=== PATIENT | male | born 1945 | race Caucasian/White ===

== ENCOUNTER 2019-08-31 09:46 | Outpatient (CLI) | payer MEDICARE, SELFPAY ==
[2019-08-31 14:05] LABS: Blood Urea Nitrogen 17 mg/dL (9-20); Calcium 9.8 mg/dL (8.4-10.2); Carbon Dioxide 25 mmol/L (22-30); Chloride 102 mmol/L (98-107); Estimated Glomerular Filt Rate > 60; Glucose 197 mg/dL (75-110); Potassium 4.3 mmol/L (3.4-5.0); Sodium 137 mmol/L (137-145)
[2019-08-31 14:19] LABS: Creatinine Urine 77.9 mg/dL
[2019-08-31 14:28] LABS: Microalbumin Urine Random 266.4 mg/L (0-16.7)
== END 2019-08-31 09:47 | disposition home or self-care (01) ==
PROVIDERS: Internal Medicine Endocrinology, Diabetes & Metabolism; PCP Family Medicine; Visit Provider Internal Medicine Cardiovascular Disease
DX: E11.59 Type 2 diabetes mellitus with other circulatory complications (principal); I10 Essential (primary) hypertension
CPT/HCPCS: 36415; 80048; 82043

== ENCOUNTER 2020-09-04 10:33 | Outpatient (CLI) | payer MEDICARE, SELFPAY ==
[2020-09-04 12:28] LABS: Anion Gap 8 mmol/L (8-16); Blood Urea Nitrogen 33 mg/dL (9-20); Calcium 9.7 mg/dL (8.4-10.2); Carbon Dioxide 24 mmol/L (22-30); Chloride 106 mmol/L (98-107); Estimated Glomerular Filt Rate 54; Glucose 107 mg/dL (75-110); HDL Direct 23 mg/dL; Potassium 4.4 mmol/L (3.4-5.0); Sodium 138 mmol/L (137-145)
[2020-09-04 12:39] LABS: LDL Cholesterol Direct 78 mg/dL
[2020-09-04 12:54] LABS: Creatinine Urine 106.5 mg/dL
[2020-09-04 12:58] LABS: MALB Creatinine Ratio 21.9 mg/g (0-30); Microalbumin Urine Random 23.3 mg/L (0-16.7)
== END 2020-09-04 10:34 | disposition home or self-care (01) ==
LOC: ANHWCLAB 10:36
PROVIDERS: PCP Family Medicine; Referring Provider Internal Medicine Endocrinology, Diabetes & Metabolism; Visit Provider Internal Medicine Endocrinology, Diabetes & Metabolism
DX: E11.29 Type 2 diabetes mellitus with other diabetic kidney complication (principal); R80.9 Proteinuria, unspecified
CPT/HCPCS: 36415; 80048; 82043; 83718; 83721

== ENCOUNTER 2021-11-21 11:42 | Outpatient (CLI) | payer MEDICARE, SELFPAY ==
[2021-11-21 14:48] LABS: Anion Gap 9 mmol/L (8-16); Blood Urea Nitrogen 27 mg/dL (9-20); Calcium 8.5 mg/dL (8.4-10.2); Carbon Dioxide 24 mmol/L (22-30); Chloride 104 mmol/L (98-107); Estimated Glomerular Filt Rate 54; Glucose 182 mg/dL (65-110); Potassium 4.2 mmol/L (3.4-5.0); Sodium 137 mmol/L (137-145)
== END 2021-11-21 11:43 | disposition home or self-care (01) ==
LOC: ANHWCLAB 11:43
PROVIDERS: PCP Family Medicine; Visit Provider Internal Medicine Endocrinology, Diabetes & Metabolism
DX: E11.65 Type 2 diabetes mellitus with hyperglycemia (principal)
CPT/HCPCS: 36415; 80048

== ENCOUNTER 2022-12-11 15:31 | Outpatient (CLI) | payer MEDICARE, SELFPAY ==
[2022-12-11 18:09] LABS: Creatinine Urine 96.9 mg/dL
[2022-12-11 18:15] LABS: MALB Creatinine Ratio 16.1 mg/g (0-30); Microalbumin Urine Random 15.6 mg/L (0-16.7)
== END 2022-12-11 15:32 | disposition home or self-care (01) ==
LOC: ANHWCLAB 15:32
PROVIDERS: PCP Family Medicine; Visit Provider Internal Medicine Endocrinology, Diabetes & Metabolism
DX: R80.9 Proteinuria, unspecified (principal); E11.29 Type 2 diabetes mellitus with other diabetic kidney complication
CPT/HCPCS: 82043

== ENCOUNTER 2023-10-08 12:24 | Outpatient (CLI) | payer MEDICARE, SELFPAY ==
--- NOTE | ~2023-10-08 | XR_ITS ---
XR chest 2V DATE: 10/08/2023 12:58 INDICATION: Upper respiratory tract disease TECHNIQUE: PA and lateral views COMPARISON: August 23, 2013 2 view chest FINDINGS: Heart size is normal. No hilar or mediastinal enlargement. No pulmonary infiltrate or conso lidation, pleural effusion or pulmonary vascular congestion or pneumothorax. Degenerative spurring of the thoracic spine. IMPRESSION: No active cardiopulmonary disease Reviewed, dictated and finalized at location B.
== END 2023-10-08 12:25 ==
PROVIDERS: PCP Family Medicine; Visit Provider Family Medicine
DX: J39.8 Other specified diseases of upper respiratory tract (principal)
CPT/HCPCS: 71046

== ENCOUNTER 2024-10-18 11:06 | Outpatient (CLI) | payer MEDICARE, SELFPAY ==
--- OUTSIDE RECORDS SUMMARY | 2024-10-18 11:10 | XMS_ITS | Clinical Summary ---
Author Organization [facility] [place] [address] Address [address] [place] [address] Care Team Providers Care Tool Chaser Name Role Phone Anthony Hogan DO Primary Care Provider [phone] Allergies No known active allergies Medications diclofenac DR (VOLTAREN) 75 mg EC tablet 0 Active Basaglar KwikPen U-100 Insulin 100 unit/mL (3 mL) insulin pen Inject 70 Units under the skin nightly 0 Active hydroCHLOROthia zide (HYDRODIURIL) 25 mg tablet Take 1 tablet (25 mg total) by mouth daily Active metFORMIN (GLUCOPHAGE) 1,000 mg tablet Take 1 tablet (1,000 mg total) by mouth 2 (two) times a day with meals Active lisinopril (PRINIVIL,ZESTR IL) 40 mg tablet Take 1 tablet (40 mg total) by mouth daily Active amLODIPine (NORVASC) 10 mg tablet Take 1 tablet (10 mg total) by mouth daily Active cyanocobalamin (Vitamin B-12) 1,000 mcg tabletIndicatio ns:Prevention of Vitamin B12 Deficiency Take 1 tablet (1,000 mcg total) by mouth daily Active aspirin 81 mg enteric coated tablet Take 1 tablet (81 mg total) by mouth daily Active glucosamine-cho ndroitin 500-400 mg tablet Take 1 tablet by mouth 3 (three) times a day Active multivitamin capsule Take 1 capsule by mouth daily Active empagliflozin (JARDIANCE) 25 mg tabletIndicatio ns:type 2 diabetes mellitus 1 tablet (25 mg total) Active omega-3 fatty acids 1,000 mg capsule Take by mouth Active melatonin 10 mg tablet Take 1 tablet (10 mg total) by mouth daily Active tamsulosin (FLOMAX) 0.4 mg extended release capsule Take 1 capsule (0.4 mg total) by mouth as needed 4 Active insulin lispro (HumaLOG, ADMELOG) 100 unit/mL vial for injection Inject 40 Units under the skin 2 (two) times a day after breakfast and dinner Active spironolactone (ALDACTONE) 25 mg tabletIndicatio ns:Hypertension associated with diabetes (HCC) TAKE 1 TABLET (25 MG TOTAL) BY MOUTH DAILY. 90 tablet 1 4 Active Trijardy XR 12.5-2.5-1,000 mg tablet, IR & ER, biphasic 24hr Take 2 tablets by mouth daily 5 Active rosuvastatin (CRESTOR) 40 mg tabletIndicatio ns:Hyperlipidem ia associated with type 2 diabetes mellitus (HCC),History of TIA (transient ischemic attack) Take 1 tablet (40 mg total) by mouth daily 90 tablet 3 5 08/26/19 26 Active carvediloL (COREG) 25 mg tabletIndicatio ns:Hypertension associated with diabetes (HCC) TAKE 1 TABLET BY MOUTH TWICE A DAY WITH FOOD 180 tablet 3 5 Active Active Problems Problem Noted Date Diagnosed Date Chest pain 10/04/2024 Severe obesity 08/25/2024 Morbid (severe) obesity due to excess calories 1 06/16/2021 Hypertriglyceridemia 10/04/2019 KIMBALL (dyspnea on exertion) 07/13/2019 Nonrheumatic aortic valve stenosis 07/13/2019 History of TIA (transient ischemic attack) 07/13 Body mass index (BMI) 45.0-49.9, adult 0 Obstructive sleep apnea 07/13/2019 Hyperlipidemia associated with type 2 diabetes m ellitus 07/13/2019 Hypertension associated with diabetes 07/13/2019 Bilateral lower extremity edema 07/13/2019 Encounters Date Type Department Care Team Description 10/04/2024 Telephone [facility] Cardiology [address] [facility] 8th [place] [address] [place] [address] Reji Benjamin RMA 10/04/2024 Telephone [facility] Cardiology [address] [facility] Medicine 8th [place] [address] [place] [address] Maxx Connor MD PhD Schedule procedure; R/LHC 09/27/2024 Telephone [facility] Cardiology [address] [facility] 8th [place] [address] [place] [address] Maxx Connor MD PhD cath inquiry 09/23/2024 Telephone [facility] Cardiology [address] [place] [address] [address] [place] [phone] Liam Norris MD 09/23/2024 Results Follow-Up [facility] Cardiology at [address] [place] [address] Liam Norris MD CTA Heart and Coronary Arteries W Morphology when Performed 09/22/2024 1:03 PM CDT - 09/22/2024 11:59 PM CDT Hospital Encounter [facility] Imaging [address] [place] [address] Hypertension associated with diabetes (HCC); Nonrheumatic aortic valve stenosis; KIMBALL (dyspnea on exertion) Discharge Disposition: Discharge to home or self care 09/20/2024 Telephone [facility] [address] [place] [address] Luzmaria Conrad RN 09/20/2024 Telephone [facility] [address] [place] [address] Luzmaria Conrad, RN 08/25/2024 10:30 AM CDT Office Visit [facility] Cardiology [address] [facility] [address] [place] [address] Liam Norris MD Hyperlipidemia associated with type 2 diabetes mellitus (HCC) (Primary Dx); Hypertension associated with diabetes (HCC); Nonrheumatic aortic valve stenosis; History of TIA (transient ischemic attack); Obstructive sleep apnea; KIMBALL (dyspnea on exertion); Severe obesity (HCC); Body mass index (BMI) 45.0-49.9, adult (HCC) 08/08/2024 Results Follow-Up [facility] Medical [facility] Cardiology [address] [place] [phone] Gita Cohn NP Transthoracic Echo (TTE) Complete W Doppler/CF 08/04/2024 10:15 AM CDT Ancillary Procedure [facility] Medical [facility] Cardiology [address] [place] [address] Nonrheumatic aortic valve stenosis from Last 3 Months Medical History Medical History Date Comments Hyperlipidemia Diabetes mellitus (HCC) Hypertension Sleep apnea Arthritis Family History Medical History Relation Name Comments Diabetes Brother 3 Kidney disease Brother 3 Heart disease Father Diabetes Mother Heart disease Mother Kidney disease Mother Appendicitis Sister Relation Name Status Comments Brother 1 Alive Brother 2 Alive Brother 3 Alive Father (Age 86) Mother (Age 84) Sister (Age 6) Ruptured ap pendix Social History Tobacco Use Types Packs/Day Years Used Date Smoking Tobacco: Some Days Cigars Smokeless Tobacco: Never Tobacco Cessation:Ready to Q uit: Not Asked; Counseling Given: Not Answered Alcohol Use Standard Drinks/Week Comments Not Currently 0 (1 standard drink = 0.6 oz pur e alcohol) former alcoholic Sex and Gender Information Value Date Recorded Sex Assigned at Not on file Legal Sex Male 4:39 PM [employer] Gender Identity Not on file Sexual Orientation Not on file Obstetrics History Last Filed Vital Signs Vital Sign Reading Time Taken Comments Blood Pressure 132/50 08/25/2024 10:14 AM CDT Pulse 69 08/25/2024 10:14 AM CDT Temperature - - Respiratory Rate - - Oxygen Saturation 97% 08/25/2024 10: 14 AM CDT Inhaled Oxygen Concentration - - Weight 136.5 kg (300 lb 14.4 oz) 2024 10:14 AM CDT Height 170.2 cm (5' 7) 08/25/2024 10:1 4 AM CDT Body Mass Index 47.13 08/25/2024 10:14 AM CDT Plan of Treatment Upcoming Encounters Date Type Department Care Team (Latest Contact Info) Description 10/24/2024 8:00 AM CDT Hospital Encounter [facility] [address] [place] [address] Maxx Connor MD PhD [address] [place] [address] Chest pain, unspecified type 10/24/2024 8:00 AM CDT - 10/24/2024 9:45 AM CDT Surgery [facility] [address] [place] [address] Maxx Connor MD PhD [address] [place] [address] Right Left Heart Catheterization with Coronary Angiography with or without Left Ventriculography [id number] Health Maintenance Due Date Last Done Comments Albumin Creatinine Ratio, Urine 1945 Depression Screening 1945 Fall Risk Assessment 1945 Hemoglobin A1C 1945 Hepatitis C Screening 1945 eGFR 1945 Dilated Eye Exam 1945 Foot Exam 1945 DTaP/Tdap/Td Vaccine (1 - Tdap) 07/26/1958 Hepatitis B Screening 07/26/1965 Zoster Vaccine (1 of 2) 07/26/1997 Abdominal Aortic Aneurysm (A AA) Screen 07/26/2012 Well Visit 65+ 07/26/2012 Influenza Vaccine (Season Ended) 2025 03/11/2019, 03/10/2018, 02/20/2017, Additional history exists Lipid Panel 08/25/2025 08/25/2024, 10/23, 10/21/2022, Additional history exists Pneumococcal vaccine 65+ Completed 02/20/2017, 02/22 Procedures Procedure Name Priority Date/Time Associated Diagnosis Comments CT HEART MORPHOLOGY AND CORONARY ARTERIES W CONTRAST Schedule Routine, Read Routine (OP Routine) 09/22/2024 1:53 PM CDT Hypertension associated with diabetes (HCC) Nonrheumatic aortic valve stenosis KIMBALL (dyspnea on exertion) POC ISTAT Routine 09/22/2024 1:25 PM CDT POCT LIPID PANEL Routine 08/25/2024 10:2 2 AM CDT Hyperlipidemia associated with type 2 diabetes mellitus (HCC) TRANSTHORACIC ECHO (TTE) COMPLETE W DOPPLER/CF WO CONTRAST Routine 08/04/2024 11:19 AM CDT Nonrheumatic aortic valve stenosis from Last 3 Months Results * CTA Heart and Coronary Arteries W Morphology when Performed (09/22/2024 1:53 PM CDT) Anatomical Region Laterality Modality Chest N/A Computed Tomogra phy 09/22/2024 3:17 PM CDT Impressions 09/22/2024 4:55 PM CDT 1. There is severe calcified and noncalcified atherosclerotic vessel coronary disease with areas of moderate (50-60%) stenosis in the left anterior descending artery and right coronary artery as described above. Due to the extreme amount of calcification, it is difficult to ascertain the degree of stenosis of multiple lesions. Further characterization with functional flow reserve imaging is recommended. 2. Calcium score is 1302. Dictated by: Tina Dallas MD The radiology attending physician has personally reviewed this study, and had reviewed and/or edited this written report and agrees with it. Electronically signed by: David Aguilar M.D. Narrative 09/22/2024 4:55 PM CDT EXAMINATION: CORONARY CT ANGIOGRAM HISTORY: 79-year-old male with progressive shortness of breath. Able to walk 15 steps.. TECHNIQUE: CT angiography of the coronary arteries was performed after the administration of 100 mL of Optiray 350. Images were also obtained precontrast for the purposes of calcium scoring. Prior to the examination, 0 mg of metoprolol was administered intravenously and 0 mg nitroglycerin was administered sublingually. The patient's heart rate at the time of the examination was 52 beats per minute. Images were transferred to a 3D workstation for additional post-processing. FINDINGS: The coronary arteries are left system dominant. There is no anomalous coronary origin or course. No focal caliber change or irregularity to suggest coronary artery dissection. Right coronary system: There is mixed calcified and noncalcified atherosclerotic disease of the proximal and mid right coronary artery with moderate (50-60%) stenosis. Left coronary system: There are mixed calcified and noncalcified atherosclerotic plaques of the proximal, mid and distal LAD with multiple areas of up to moderate (50-60%) stenosis. There are calcified plaques in the proximal and mid left circumflex artery with mild (25-40%) stenosis. The calculated calcium score is 1302. Other findings: There are calcifications of the aortic and mitral valves. Heart size is normal. No pericardial effusion. There is atherosclerosis of the thoracic aorta. Multilevel degenerative disease of the spine. No suspicious osseous lesions. Procedure Note David Aguilar MD - 09/22/2024 EXAMINATION: CORONARY CT ANGIOGRAM HISTORY: 79-year-old male with progressive shortness of breath. Able to walk 15 steps.. TECHNIQUE: CT angiography of the coronary arteries was performed after the administration of 100 mL of Optiray 350. Images were also obtained precontrast for the purposes of calcium scoring. Prior to the examination, 0 mg of metoprolol was administered intravenously and 0 mg nitroglycerin was administered sublingually. The patient's heart rate at the time of the examination was 52 beats per minute. Images were transferred to a 3D workstation for additional post-processing. FINDINGS: The coronary arteries are left system dominant. There is no anomalous coronary origin or course. No focal caliber change or irregularity to suggest coronary artery dissection. Right coronary system: There is mixed calcified and noncalcified atherosclerotic disease of the proximal and mid right coronary artery with moderate (50-60%) stenosis. Left coronary system: There are mixed calcified and noncalcified atherosclerotic plaques of the proximal, mid and distal LAD with multiple areas of up to moderate (50-60%) stenosis. There are calcified plaques in the proximal and mid left circumflex artery with mild (25-40%) stenosis. The calculated calcium score is 1302. Other findings: There are calcifications of the aortic and mitral valves. Heart size is normal. No pericardial effusion. There is atherosclerosis of the thoracic aorta. Multilevel degenerative disease of the spine. No suspicious osseous lesions. IMPRESSION: 1. There is severe calcified and noncalcified atherosclerotic vessel coronary disease with areas of moderate (50-60%) stenosis in the left anterior descending artery and right coronary artery as described above. Due to the extreme amount of calcification, it is difficult to ascertain the degree of stenosis of multiple lesions. Further characterization with functional flow reserve imaging is recommended. 2. Calcium score is 1302. Dictated by: Tina Dallas MD The radiology attending physician has personally reviewed this study, and had reviewed and/or edited this written report and agrees with it. Electronically signed by: David Aguilar M.D. Liam Norris MD IMG CT PROCEDURES Final R esult * (ABNORMAL) POC ISTAT (09/22/2024 1:25 PM CDT) [facility] Creatinine, POC, bld 1.5(H) 0.6 - 1.3 mg/dL POC Device Number [id number] SHUNDIVYA [facility] POC Performer [id number] WANDA BJW Blood 09/22/2024 1:25 PM CDT 09/22/2024 1:25 PM CDT Anthony Hogan DO LAB BLOOD ORDERABLES Final Result [facility] [address] [facility] [address] * POCT lipid panel (08/25/2024 10:22 AM CDT) [facility] Cholesterol, POC 189 mg/dL Comment:GLU = 151 HDL, POC 19 mg/dL Triglycerides, POC 195 mg/dL LDL Cholesterol POC 131 mg/dL Chol/HDL Ratio, POC 7.1 Non-HDL Cholesterol, POC 170 mg/dL Cholesterol Total, POC 189 mg/dL Capillary blood 08/25/2024 1 0:22 AM CDT Liam Norris MD POINT OF CARE TEST ORDERA BLES Final Result * TRANSTHORACIC ECHO (TTE) COMPLETE W DOPPLER/CF WO CONTRAST (08/04/2024 11:19 AM CDT) [facility] LV EF 75 % CONS SCIMAGE Anatomical Region Laterality Modality Ultrasound 08/04/2024 10:0 9 AM CDT Narrative 08/04/2024 4:58 PM CDT [facility] Cardiology [address], [place] [address] [address] [facility] [address], [place] [address] P:[phone] P:[phone] Echocardiographic Report Patient Name: JAI TO : 1945 Study Date: 08/04/2024 10:09:55 AM Gender: M Tech: [facility] Location: [place] Ref Provider: GITA COHN Height(Cm): 170 BSA: 2.55 Weight(Kg): 137.9 Heart Rate: 56 BP: 150 / 52 Quality: Good Order Provider: GITA COHN PROCEDURES: Echocardiographic Report: Transthoracic echocardiogram with complete 2D, M-Mode, and color Doppler examination. INDICATIONS: Aortic Stenosis. MEASUREMENTS: 2D/MM Value Range Doppler Value Range EF Mod BP 80 % [ 52 - 72 ] SUNDEEP Vmax 1.14 cm2 [ 2.00 - 4.00 ] Estimated EF 75 % AV Mean PG 27 mmHg LVIDd 2D 4.96 cm [ 4.20 - 5.80 ] AV Peak Gregor 3.39 m/s [ 1.00 - 1.70 ] LVIDs 2D 3.00 cm [ 2.50 - 4.00 ] AV Peak PG 46 mmHg LVPWd 2D 1.38 cm [ 0.60 - 1.00 ] AV VTI 84.40 cm IVSd 2D 1.32 cm [ 0.60 - 1.00 ] LVOT Diam 2.04 cm [ 1.70 - 2.10 ] LA Dimension 2D 4.12 cm [ 3.00 - 4.00 ] LVOT Peak Gregor 1.19 m/s [ 0.70 - 1.10 ] LA Dimension MM 3.34 cm [ 3.00 - 4.00 ] LVOT VTI 29.95 cm AoR Diam 2D 3.00 cm [ 3.10 - 3.70 ] MV E Peak Gregor 1.37 m/s [ 0.60 - 1.30 ] AoR Diam MM 3.19 cm [ 3.10 - 3.70 ] MV A Peak Gregor 1.30 m/s [ 1.00 - 1.20 ] LA Volume Index 30 cc/m2 [ 16 - 34 ] MV Mean PG 2 mmHg [ 0 - 5 ] MV PHT 99 msec [ 20 - 100 ] MVA PHT 2.22 cm2 [ 2.00 - 4.00 ] MV Decel Time 279 msec [ 104 - 258 ] PV Peak Gregor 0.89 m/s [ 0.40 - 0.80 ] Lateral E` 0.07 m/s [ 0.10 - 0.15 ] E` 0.06 m/s E/E` 19 2D/MM Value Range Doppler Value Range - FINDINGS: Interpretation Site: Exam was interpreted at [facility]. Left Ventricle: Normal left ventricular systolic function. No focal wall motion abnormalities. Normal left ventricular size. Moderate concentric left ventricular hypertrophy. Impaired diastolic relaxation Grade I. Ejection fraction is measured at 80 %. Ejection Fraction is visually estimated to be 75 %. Right Ventricle: Normal right ventricular size. Normal right ventricular systolic function. Left Atrium: There is mild enlargement of left atrium. Right Atrium: The right atrium is normal in size. Atrial Septum: Normal atrial septum. Mitral Valve: Mitral valve leaflets appear mildly thickened. Mild mitral annular calcification. Mild mitral valve regurgitation. There is no hemodynamically significant mitral stenosis by Doppler. Aortic Valve: Moderate aortic stenosis. Peak Velocity of 3.40 m/s. Mean gradient of 27.0 mmHg. Valve area of 1.1 cm2. Aortic cusps appear severely calcified. Probable trileaflet aortic valve, although not all leaflets are visualized. Trace aortic valve regurgitation. Tricuspid Valve: Normal appearance of the tricuspid valve. Right ventricular systolic pressure could not be estimated due to inadequate visualization of the tricuspid regurgitation jet. Trivial regurgitation in the tricuspid valve. Pulmonic Valve: Normal appearance of the pulmonic valve. No pulmonic stenosis. Trivial regurgitation in the pulmonic valve. Pericardium: Normal pericardium with no significant pericardial effusion. Aorta: No aortic root dilation. IVC: Normal size and normal respiratory collapse consistent with normal right atrial pressure (<5 mmHg). CONCLUSIONS: Normal left ventricular systolic function. No focal wall motion abnormalities. Normal left ventricular size. Moderate concentric left ventricular hypertrophy. Impaired diastolic relaxation Grade I. Ejection fraction is measured at 80 %. Ejection Fraction is visually estimated to be 75 %. There is mild enlargement of left atrium. Mitral valve leaflets appear mildly thickened. Mild mitral annular calcification. Mild mitral valve regurgitation. Moderate aortic stenosis. Peak Velocity of 3.40 m/s. Mean gradient of 27.0 mmHg. Valve area of 1.1 cm2. Aortic cusps appear severely calcified. Normal sinus rhythm. Electronically Signed By: Liam Norris MD 08/04/2024 4:58:22 PM CDT Procedure Note Liam Norris MD - 08/04/2024 [facility] Cardiology [address] [facility] [address], [place] [address] [address] [facility] [address], [place] [address] P:[phone] P:[phone] Echocardiographic Report Patient Name: JAI TO : 1945 Study Date: 08/04/2024 10:09:55 AM Gender: M Tech: [facility] Location: [facility] Provider: GITA COHN Height(Cm): 170 BSA: 2.55 Weight(Kg): 137.9 Heart Rate: 56 BP: 150 / 52 Quality: Good Order Provider: GITA COHN PROCEDURES: Echocardiographic Report: Transthoracic echocardiogram with complete 2D, M-Mode, and color Dopplerexamination. INDICATIONS: Aortic Stenosis. MEASUREMENTS: 2D/MM Value Range Doppler ValueRange EF Mod BP 80 % [ 52 - 72 ] SUNDEEP Vmax 1.14cm2 [ 2.00 - 4.00 ] Estimated EF 75 % AV Mean PG 27mmHg LVIDd 2D 4.96 cm [ 4.20 - 5.80 ] AV Peak Gregor 3.39m/s [ 1.00 - 1.70 ] LVIDs 2D 3.00 cm [ 2.50 - 4.00 ] AV Peak PG 46mmHg LVPWd 2D 1.38 cm [ 0.60 - 1.00 ] AV VTI 84.40cm IVSd 2D 1.32 cm [ 0.60 - 1.00 ] LVOT Diam 2.04 cm[ 1.70 - 2.10 ] LA Dimension 2D 4.12 cm [ 3.00 - 4.00 ] LVOT Peak Gregor 1.19m/s [ 0.70 - 1.10 ] LA Dimension MM 3.34 cm [ 3.00 - 4.00 ] LVOT VTI 29.95cm AoR Diam 2D 3.00 cm [ 3.10 - 3.70 ] MV E Peak Gregor 1.37m/s [ 0.60 - 1.30 ] AoR Diam MM 3.19 cm [ 3.10 - 3.70 ] MV A Peak Gregor 1.30m/s [ 1.00 - 1.20 ] LA Volume Index 30 cc/m2 [ 16 - 34 ] MV Mean PG 2 mmHg[ 0 - 5 ] MV PHT 99 msec [ 20 - 100 ] MVA PHT 2.22 cm2 [ 2.00 - 4.00 ] MV Decel Time 279 msec [ 104 - 258 ] PV Peak Gregor 0.89 m/s [ 0.40 - 0.80 ] Lateral E` 0.07 m/s [ 0.10 - 0.15 ] E` 0.06 m/s E/E` 19 2D/MM Value Range Doppler ValueRange - FINDINGS: Interpretation Site: Exam was interpreted at [facility]. Left Ventricle: Normal left ventricular systolic function. No focal wall motionabnormalities. Normal left ventricular size. Moderate concentric left ventricular hypertrophy.Impaired diastolic relaxation Grade I. Ejection fraction is measured at 80 %.Ejection Fraction is visually estimated to be 75 %. Right Ventricle: Normal right ventricular size. Normal right ventricular systolicfunction. Left Atrium: There is mild enlargement of left atrium. Right Atrium: The right atrium is normal in size. Atrial Septum: Normal atrial septum. Mitral Valve: Mitral valve leaflets appear mildly thickened. Mild mitral annularcalcification. Mild mitral valve regurgitation. There is no hemodynamically significant mitralstenosis by Doppler. Aortic Valve: Moderate aortic stenosis. Peak Velocity of 3.40 m/s. Mean gradient of 27.0mmHg. Valve area of 1.1 cm2. Aortic cusps appear severely calcified. Probabletrileaflet aortic valve, although not all leaflets are visualized. Trace aortic valveregurgitation. Tricuspid Valve: Normal appearance of the tricuspid valve. Right ventricular systolicpressure could not be estimated due to inadequate visualization of the tricuspidregurgitation jet. Trivial regurgitation in the tricuspid valve. Pulmonic Valve: Normal appearance of the pulmonic valve. No pulmonic stenosis. Trivialregurgitation in the pulmonic valve. Pericardium: Normal pericardium with no significant pericardial effusion. Aorta: No aortic root dilation. IVC: Normal size and normal respiratory collapse consistent with normal rightatrial pressure (<5 mmHg). CONCLUSIONS: Normal left ventricular systolic function. No focal wall motionabnormalities. Normal left ventricular size. Moderate concentric left ventricular hypertrophy.Impaired diastolic relaxation Grade I. Ejection fraction is measured at 80 %.Ejection Fraction is visually estimated to be 75 %. There is mild enlargement of left atrium. Mitral valve leaflets appear mildly thickened. Mild mitral annularcalcification. Mild mitral valve regurgitation. Moderate aortic stenosis. Peak Velocity of 3.40 m/s. Mean gradient of 27.0mmHg. Valve area of 1.1 cm2. Aortic cusps appear severely calcified. Normal sinus rhythm. Electronically Signed By: Liam Norris MD 08/04/2024 4:58:22 PM CDT Gita Cohn NP CV ECHO PROCEDURES Final Result from Last 3 Months Insurance [employer] MEDICARE GOLD AETNA MEDICARE GOLD A[employer] MEDICARE GOLD Care Teams Tool Chaser Relationship Specialty Start Date End Date Anthony Hogan DO [address] [place] [address] [place] [address] PCP - General Internal Medicine 08/25/24
--- OUTSIDE RECORDS SUMMARY | 2024-10-18 11:10 | XMS_ITS | Encounter Summary ---
Author Organization [facility] Healthcare Address [address] [place] [address] Care Team Providers Care Shake Feeder Name Role Phone Anthony Hogan DO Primary Care Provider +1- [phone] Encounter Details Date Type Department Care Team (Late st Contact Info) Description 09/20/2024 Telephone [facility] Imaging [address] [address] Luzmaria Conrad RN Social History Tobacco Use Types Packs/Day Years Used Date Smoking Tobacco: Some Days Cigars Smokeless Tobacco: Never Alcohol Use Standard Drinks/Week Comments Not Currently 0 (1 standard drink = 0.6 oz pur e alcohol) former alcoholic Sex and Gender Information Value Date Recorded Sex Assigned at Not on file 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 Gender Identity Not on file Sexual Orientation Not on file documented as of this encounter Plan of Treatment Upcoming Encounters Date Type Department Care Team (Latest Contact Info) Description 10/24/2024 8:00 AM CDT Hospital Encounter [facility] V[facility] [address] [place] [phone] Maxx Connor MD PhD [address] [facility] [address] [place] [address] Chest pain, unspecified type 10/24/2024 8:00 AM CDT - 10/24/2024 9:45 AM CDT Surgery [facility] Vascular Center [address] [place] [address] Maxx Connor MD PhD [address] [place] [address] Right Left Heart Catheterization with Coronary Angiography with or without Left Ventriculography [address] documented as of this encounter Visit Diagnoses Not on filedocumented in this encounter Care Teams Shake Feeder Relationship Specialty Start Date End Date Anthony Hogan DO [facility] [address] [address] PCP - General Internal Medicine 08/25/24 documented as of this encounter
--- OUTSIDE RECORDS SUMMARY | 2024-10-18 11:10 | XMS_ITS | Encounter Summary ---
Author Organization [facility] Healthcare Address [address] [place] [address] Care Team Providers Care Licensed Certified Orthotist Name Role Phone Anthony Hogan DO Primary Care Provider [phone]- [phone] Encounter Details Date Type Department Care Team (Late st Contact Info) Description 09/23/2024 Results Follow-Up [facility] Medical Group Cardiology at [address] [place] [address] Liam Norris MD [address] [address] CTA Heart and Coronary Arteries W Morphology when Performed Social History Tobacco Use Types Packs/Day Years Used Date Smoking Tobacco: Some Days Cigars Smokeless Tobacco: Never Alcohol Use Standard Drinks/Week Comments Not Currently 0 (1 standard drink = 0.6 oz pur e alcohol) former alcoholic Sex and Gender Information Value Date Recorded Sex Assigned at Not on file 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 Gender Identity Not on file Sexual Orientation Not on file documented as of this encounter Plan of Treatment Upcoming Encounters Date Type Department Care Team (Latest Contact Info) Description 10/24/2024 8:00 AM CDT Hospital Encounter [facility] Heart and Vascular Center [address] [place] [address] Maxx Connor MD PhD [address] [place], [place] [id number] Chest pain, unspecified type 10/24/2024 8:00 AM CDT - 10/24/2024 9:45 AM CDT Surgery [facility] Vascular Center [address] [place] [address] Maxx Connor MD PhD [address] [place] [address] Right Left Heart Catheterization with Coronary Angiography with or without Left Ventriculography [address] documented as of this encounter Visit Diagnoses Not on filedocumented in this encounter Care Teams Licensed Certified Orthotist Relationship Specialty Start Date End Date Anthony Hogan DO [facility] [address] [place] [address] PCP - General Internal Medicine 08/25/24 documented as of this encounter
--- OUTSIDE RECORDS SUMMARY | 2024-10-18 11:10 | XMS_ITS | Referral Summary ---
Author Organization [facility] [address] [facility] 162 Address [address] [place] [address] Care Team Providers Care Lump Receiver Name Role Phone Anthony Hogan DO Primary Care Provider [phone]- [phone] Encounters Date Type Department Care Team Description 10/04/2024 Telephone [facility] Cardiology [facility] Medicine [address]th [place] [address] [place] [address] Reji Benjamin RMA 10/04/2024 Telephone [facility] Cardiology [facility] 8th [place] [address] [place] [address] Maxx Connor MD PhD Schedule procedure; R/LHC 09/27/2024 Telephone [facility] Cardiology [facility] 8th [place] [address] [place] [address] Maxx Connor MD PhD cath inquiry 09/23/2024 Telephone [facility] Cardiology [address] [place] [phone] Liam Norris MD 09/23/2024 Results Follow-Up [facility] Cardiology at [address] [place] [address] Liam Norris MD [facility] Heart and Coronary Arteries W Morphology when Performed 09/22/2024 1:03 PM CDT - 09/22/2024 11:59 PM CDT Hospital Encounter [facility] Imaging [address] [place] [address] Hypertension associated with diabetes (HCC); Nonrheumatic aortic valve stenosis; KIMBALL (dyspnea on exertion) Discharge Disposition: Discharge to home or self care 09/20/2024 Telephone [facility] Imaging [address] [place] [address] Luzmaria Conrad RN 09/20/2024 Telephone [facility] Imaging [address], [place] [address] Luzmaria Conrad RN 08/25/2024 10:30 AM CDT Office Visit [facility] Medical Group Cardiology [address] [place] [address] [place] [phone] Liam Norris MD Hyperlipidemia associated with type 2 diabetes mellitus (HCC) (Primary Dx); Hypertension associated with diabetes (HCC); Nonrheumatic aortic valve stenosis; History of TIA (transient ischemic attack); Obstructive sleep apnea; KIMBALL (dyspnea on exertion); Severe obesity (HCC); Body mass index (BMI) 45.0-49.9, adult (HCC) 08/08/2024 Results Follow-Up [facility] Medical [facility] Cardiology [address] [place] [address] [place] [phone] Gita Cohn NP Transthoracic Echo (TTE) Complete W Doppler/CF 08/04/2024 10:15 AM CDT Ancillary Procedure [facility] Cardiology [address] [place] [phone] Nonrheumatic aortic valve stenosis from Last 3 Months Allergies No known active allergies Medications diclofenac [...] diabetes 07/13/2019 Bilateral lower extremity edema 07/13/2019 Social History Tobacco Use Types Packs/Day Years [...] on file 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 Gender Identity Not on file Sexual Orientation Not on file Last Filed Vital Signs Vital Sign Reading [...] Description 10/24/2024 8:00 AM CDT Hospital Encounter [facility] Heart and Vascular Center [address] [place] [phone] Maxx Connor MD PhD [address] [place] [address] Chest pain, unspecified type 10/24/2024 8:00 AM CDT - 10/24/2024 9:45 AM CDT Surgery [facility] Heart and Vascular Center 1 [facility] [place] [address] Maxx Connor MD PhD [address] [place] [address] Right Left Heart Catheterization with Coronary Angiography with or without Left Ventriculography [address] Procedures Procedure Name Priority Date/Time Associated Diagnosis [...] (ABNORMAL) POC ISTAT (09/22/2024 1:25 PM CDT) Creatinine, POC, bld 1.5(H) 0.6 - 1.3 mg/dL POC Device Number [id number] WANDA RODRIGUESCH POC Performer [id number] [facility] Blood 09/22/2024 1:25 PM CDT 09/22/2024 1:25 PM CDT Anthony Hogan DO LAB BLOOD ORDERABLES Final Result WANDA RODRIGUESCH [address] [facility] [address] * POCT lipid panel (08/25/2024 10:22 AM CDT) Cholesterol, POC 189 mg/dL Comment:GLU = 151 HDL, POC 19 mg/dL Triglycerides, POC 195 mg/dL LDL Cholesterol POC 131 mg/dL Chol/HDL Ratio, POC 7.1 Non-HDL Cholesterol, POC 170 mg/dL Cholesterol Total, POC 189 mg/dL Capillary blood 08/25/2024 1 0:22 AM CDT us Liam Norris MD POINT OF CARE TEST ORDERA BLES Final Result * TRANSTHORACIC ECHO (TTE) COMPLETE W DOPPLER/CF WO CONTRAST (08/04/2024 11:19 AM CDT) LV EF 75 % CONS SCIMAGE Anatomical Region Laterality Modality Ultrasound 08/04/2024 10:0 9 AM CDT Narrative 08/04/2024 4:58 PM CDT [facility] Medical Group Cardiology [address] [facility] [address], [place] [address] [address] [facility] [address], [place] [address] P:[phone] P:[phone] Echocardiographic Report Patient Name: JAI TO : 1945 Study Date: 08/04/2024 10:09:55 AM Gender: M Tech: [facility] Location: [facility] Provider: GITA COHN Height(Cm): 170 BSA: [...] FINDINGS: Interpretation Site: Exam was interpreted at [facility]. Left Ventricle: Normal left ventricular systolic function. [...] Group Cardiology [address], [place] [address] [address] [facility] [address], [place] [address] P:[phone] P:[phone] Echocardiographic Report Patient Name: JAI TO : 1945 Study Date: 08/04/2024 10:09:55 AM Gender: M Tech: DONAVON Location: [facility] Provider: GITA COHN Height(Cm): 170 BSA: [...] FINDINGS: Interpretation Site: Exam was interpreted at [facility]. Left Ventricle: Normal left ventricular systolic function. [...] Final Result from Last 3 Months Insurance [id number] [place] [address] [facility] AET[employer] MEDICARE GOLD AENA MEDICARE GOLD Care Teams Lump Receiver Relationship Specialty Start Date End Date Anthony Hogan DO [address] [place] [address] [place] [address] PCP - General Internal Medicine 08/25/24
[2024-10-18 18:58] LABS: Cholesterol 86 mg/dL (0-200); HDL Direct 28 mg/dL; Triglycerides 116 mg/dL (<150)
[2024-10-18 19:03] LABS: Alanine Aminotransferase 35 U/L (6-50); Albumin Level 4.3 g/dL (3.5-5.1); Alkaline Phosphatase 59 U/L (38-126); Anion Gap 10 mmol/L (4-12); Aspartate Amino Transferase 46 U/L (17-59); Bilirubin,Total 0.5 mg/dL (0.2-1.3); Blood Urea Nitrogen 30 mg/dL (9-20); Calcium 8.9 mg/dL (8.4-10.2); Carbon Dioxide 23 mmol/L (22-30); Chloride 106 mmol/L (98-107); Estimated Glomerular Filt Rate > 60; Glucose 165 mg/dL (65-110); Potassium 4.4 mmol/L (3.4-5.0); Sodium 139 mmol/L (137-145)
[2024-10-18 19:09] LABS: LDL Cholesterol Direct 31 mg/dL
[2024-10-18 19:13] LABS: Creatinine Urine 40.9 mg/dL
[2024-10-18 19:20] LABS: MALB Creatinine Ratio 108.1 mg/g (0-30); Microalbumin Urine Random 44.2 mg/L (0-16.7)
[2024-10-18 19:23] LABS: Free T4 Free Thyroxine 0.84 ng/dL (0.78-2.19); Vitamin D 25 Hydroxy 34.8 ng/mL
[2024-10-18 19:31] LABS: Prostate Specific Antigen 2.9 ng/mL (< OR = 4.0)
[2024-10-18 20:26] LABS: Basophils Percent Auto 0.4 % (0.2-1.2); Eosinophils Absolute Auto 0.4 K/mm3 (0-0.3); Eosinophils Percent Auto 4.9 % (0-4.4); Hemoglobin 14.1 g/dL (14.0-18.0); Immature Granulocyte Absolute 0.03 K/mm3 (0.00-0.031); Immature Granulocyte Percent A 0.4 % (0-0.5); Lymphocytes Absolute Auto 2.15 K/mm3 (0.9-3.2); Lymphocytes Percent Auto 28.7 % (18.3-44.2); Mean Corpuscular HGB Conc 33.6 g/dl (32-36); Mean Corpuscular Hemoglobin 31.2 pg (26-34); Mean Corpuscular Volume 92.9 fl (80-100); Mean Platelet Volume 11.4 fl (7.4-10.4); Monocytes Absolute Auto 0.7 K/mm3 (0.1-0.6); Monocytes Percent Auto 9.9 % (2.6-8.5); Neutrophils Absolute Auto 4.2 K/mm3 (1.3-6.7); Neutrophils Percent Auto 55.7 % (45.5-73.1); Platelet Count Result 217 k/mm3 (150-375); Red Blood Count 4.52 M/mm3 (4.6-6.20); Red Cell Distribution Width 13.2 % (11.5-14.5); White Blood Count 7.5 K/mm3 (4.5-10.0)
[2024-10-22 11:58] LABS: Apolipoprotein B 51 mg/dL
[2024-10-22 19:39] LABS: Testosterone Free 49.8 pg/mL (30.0-135.0); Testosterone Total 154 ng/dL (250-1100)
== END 2024-10-18 11:07 | disposition home or self-care (01) ==
LOC: ANHGOSHLAB 11:08
PROVIDERS: PCP Internal Medicine; Visit Provider Nurse Practitioner Family
DX: I35.0 Nonrheumatic aortic (valve) stenosis (principal); I10 Essential (primary) hypertension; E78.2 Mixed hyperlipidemia; E11.42 Type 2 diabetes mellitus with diabetic polyneuropathy; E66.01 Morbid (severe) obesity due to excess calories; R53.83 Other fatigue; R37 Sexual dysfunction, unspecified; E11.29 Type 2 diabetes mellitus with other diabetic kidney complication; R80.9 Proteinuria, unspecified; Z12.5 Encounter for screening for malignant neoplasm of prostate
CPT/HCPCS: 36415; 80053; 80061; 82043; 82172; 82306; 82607; 83036; 84153; 84402; 84403; 84439; 84443; 85025; G0103

== ENCOUNTER 2025-02-02 00:35 | Emergency (ER) | payer MEDICARE, SELFPAY ==
--- OUTSIDE RECORDS SUMMARY | 2025-01-31 09:24 | XMS_ITS | Encounter Summary ---
Author Organization [facility] Healthcare Address [address] [place] [address] Care Team Providers Care Wheat Inspector Name Role Phone Anthony Hogan DO Primary Care Provider [phone] Liam Norris MD Unavailable [phone] Meño Yeager MD Unavailable [phone] Miscellaneous, Not In File Unavailable Unava ilable Reason for Referral * MRI/CAT/PET Scan (Routine) - Closed Specialty Diagnoses / Procedures Referred By Chad rajput Referred To Contact Radiology Diagnoses S/P CABG (coronary artery bypass graft) S/P AVR (aortic valve replacement) Procedures CTA Chest W Contrast Meño Yeager MD [id number] [place] [address] Phone: tel: fax: [address] [address] Referral ID Status Reason Start Date Expiration Date Visits Re quested Visits Authorized [id number] Closed 01/13/2025 07/12/2025 1 1 Reason for Visit * MRI/CAT/PET Scan (Routine) - Closed Specialty Diagnoses / Procedures Referred By Contac t Referred To Contact Radiology Diagnoses S/P CABG (coronary artery bypass graft) S/P AVR (aortic valve replacement) Procedures CTA Chest W Contrast Meño Yeager MD [address] [facility] [id number] [place] [address] Phone: tel: fax: [facility] [address] [facility] [place] [address] Referral ID Status Reason Start Date Expiration Date Visits Re quested Visits Authorized [id number] Closed 01/13/2025 07/12/2025 1 1 Encounter Details Date Type Department Care Team (Late st Contact Info) Description 01/31/2025 9:24 AM CDT - 01/31/2025 11:59 PM CDT Hospital Encounter [facility] [address] [place] [id number] Meño Yeager MD [address] [facility] [id number] [place] [address] S/P CABG (coronary artery bypass graft); S/P AVR (aortic valve replacement) Discharge Disposition: Discharge to home or self care Social History Tobacco Use Types Packs/Day Years Used Date Smoking Tobacco: Some Days Cigars Passive Smoke Exposure: Past Smokeless Tobacco: Never Comments:Cigars- (1) 3 times weekly Alcohol Use Standard Drinks/Week Comments Not Currently 0 (1 standard drink = 0.6 oz pur e alcohol) former alcoholic Social Connection and Isolation Panel Answer Date Recorded In a typical week, how many times do you talk on the phone with family, friends, or neighbors? More than three times a week 12/21/2024 How often do you get togethe r with friends or relatives? More than three times a week 12/21/2024 How often do you attend chur ch or cheondoism services? Never 12/21/2024 Do you belong to any clubs o r organizations such as oriental orthodox groups, unions, fraternal or athletic groups, or school groups? No 12/21/2024 How often do you attend meet ings of the clubs or organizations you belong to? Never 12/21/2024 Are you , , di vorced, , never , or living with a partner? 12/21/2024 AUDIT-C Answer Date Recorded Q1: How often do you have a drink containing alcohol? Never 12/01/2024 Q2: How many drinks containi ng alcohol do you have on a typical day when you are drinking? Patient does not drink Q3: How often do you have si x or more drinks on one occasion? Never 12/01/2024 Overall Financial Resource Strain (CARDIA) Answe r Date Recorded How hard is it for you to pa y for the very basics like food, housing, medical care, and heating? Not hard at all 12/21/2024 PHQ-2 Answer Date Recorded PHQ-2 Total Score 0 01/04/2025 PRAPARE - Transportation Answer Date Re corded In the past 12 months, has l ack of transportation kept you from medical appointments or from getting medications? No 11/24 In the past 12 months, has l ack of transportation kept you from meetings, work, or from getting things needed for daily living? No 12/21/2024 Housing Stability Vital Sign Answer Jossue e Recorded In the last 12 months, was t here a time when you were not able to pay the mortgage or rent on time? No 12/21/2024 In the past 12 months, how m any times have you moved where you were living? 0 12/21/2024 At any time in the past 12 m [facility], were you homeless or living in a assisted (including now)? No 12/21/2024 Social Connection and Isolation Panel Answer Date Recorded In a typical week, how many times do you talk on the phone with family, friends, or neighbors? More than three times a week 01/04/2025 How often do you get togethe r with friends or relatives? More than three times a week 01/04/2025 How often do you attend chur ch or cheondoism services? Never 01/04/2025 Do you belong to any clubs o r organizations such as oriental orthodox groups, unions, fraternal or athletic groups, or school groups? No 01/04/2025 How often do you attend meet ings of the clubs or organizations you belong to? Never 01/04/2025 Are you , , di vorced, , never , or living with a partner? 01/04/2025 Overall Financial Resource Strain (CARDIA) Answe r Date Recorded How hard is it for you to pa y for the very basics like food, housing, medical care, and heating? Not very hard 01/04/2025 Hunger Vital Sign Answer Date Recorded Within the past 12 months, y ou worried that your food would run out before you got the money to buy more. Never true 01/05/20 25 Within the past 12 months, t he food you bought just didn't last and you didn't have money to get more. Never true 01/04/2025 PRAPARE - Transportation Answer Date Re corded In the past 12 months, has l ack of transportation kept you from medical appointments or from getting medications? No 12/23 In the past 12 months, has l ack of transportation kept you from meetings, work, or from getting things needed for daily living? No 01/04/2025 Housing Stability Vital Sign Answer Jossue e Recorded In the last 12 months, was t here a time when you were not able to pay the mortgage or rent on time? No 01/04/2025 In the past 12 months, how m any times have you moved where you were living? 0 01/04/2025 At any time in the past 12 m [facility], were you homeless or living in a assisted (including now)? No 01/04/2025 [facility] Utilities Answer Date Recorded In the past 12 months has th e electric, gas, oil, or water company threatened to shut off services in your home? No 01/04/2025 Personal Safety Answer Date Recorded Have you ever been in or are you currently in a harmful physical or emotional relationship or is someone making you feel afraid or unsafe? 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 Fib Post Cardio-Thoracic Surgery,Prevention of Recurrent Atrial Fibrillation Take 1 tablet (400 mg total) by mouth daily 01/20/2025 amLODIPine (NORVASC) 10 mg tablet Take 1 tablet (10 mg total) by mouth every morning apixaban (ELIQUIS) 5 mg tabletIndications: atrial fibrillation Take 1 tablet (5 mg total) by mouth every 12 (twelve) hours 12/27/2024 aspirin 81 mg enteric coated tablet Take 1 tablet (81 mg total) by mouth nightly benzonatate (TESSALON) 200 mg capsuleIndications :Cough Take 1 capsule (200 mg total) by mouth 3 (three) times a day as needed for cough 12/27/2024 blood-glucose sensor (Dexcom G7 Sensor) device Use as directed. Change sensor every 10 days. 3 each 12/20/2024 blood-glucose sensor (Dexcom G7 Sensor) device Use as directed. 1 each 12/20/2024 blood-glucose,rece iver,cont (Dexcom G7 Recording Clerk) misc Use as directed. 1 each 12/20/2024 cyanocobalamin, vitamin B-12, (VITAMIN B-12 ORAL) Take 1,000 mcg by mouth daily as needed (SUPPLEMENT) dextrose 15 gram/32 mL gel in packetIndications: hypoglycemic disorder Take 32 mL (15 g total) by mouth every 15 (fifteen) minutes as needed (blood glucose less than 70 mg/dL) 01/12/2025 docusate sodium (COLACE) 100 mg capsuleIndications :constipation Take 1 capsule (100 mg total) by mouth 2 (two) times a day 12/27/2024 empagliflozin (Jardiance) 25 mg tabletIndications: type 2 diabetes mellitus Take 0.5 tablets (12.5 mg total) by mouth daily before breakfast 0 01/12/2025 ezetimibe (ZETIA) 10 mg tablet Take 1 tablet (10 mg total) by mouth every morning 01/12/2025 furosemide (LASIX) 80 mg tablet Take 1 tablet (80 mg total) by mouth 2 (two) times a day 12/27/2024 gabapentin (NEURONTIN) 100 mg capsule Take 1 capsule (100 mg total) by mouth 01/20/2025 glucosamine-chondr oitin 500-400 mg tablet Take 1 tablet by mouth 3 (three) times a day as needed (SUPPLEMENT) guaiFENesin (ROBITUSSIN) syrup 100 mg/5 mL Take 20 mL (400 mg total) by mouth 4 (four) times a day as needed for cough 01/12/2025 insulin glargine (LANTUS) 100 unit/mL (3 mL) pen for injection Inject 52 Units under the skin nightly 0 01/12/2025 5 insulin lispro (HumaLOG) 100 unit/mL pen for injectionIndicatio ns:type 2 diabetes mellitus Inject 32 Units under the skin 3 (three) times a day with meals (plus blood glucose mg/dL 150-199: 2 units, 200-249: 4 units, 250-299: 6 units, 300-349: 8 units, 350 or greater: 10 units. Notify provider for blood glucose greater than 299 mg/dL. Max daily dose 140) Refer to After Visit Summary for Sliding Scale Insulin Instructions. 0 01/12/2025 5 lidocaine (LIDODERM) 5 % Place 1 patch on the skin daily for 12 hours Remove & discard patch within 12 hours or as directed by MD. 0 01/12/2025 5 lidocaine (XYLOCAINE) 4 % (40 mg/mL) external solution Apply 1 mL (40 mg total) topically 2 (two) times a day as needed for pain (coccyx pain) 12/27/2024 linaGLIPtin (Tradjenta) 5 mg tabletIndications: type 2 diabetes mellitus Take 0.5 tablets (2.5 mg total) by mouth daily 0 01/12/2025 5 magnesium oxide (MAG-OX) 400 mg (241.3 mg elemental magnesium) tabletIndications: hypomagnesemia Take 1 tablet (400 mg total) by mouth daily 01/13/2025 6 metFORMIN (GLUCOPHAGE) 1,000 mg tablet Take 1 tablet (1,000 mg total) by mouth daily with breakfast 0 01/12/2025 5 metoprolol XL (TOPROL-XL) 100 mg 24 hr tablet Take 1 tablet (100 mg total) by mouth 2 (two) times a day 01/12/2025 miconazole (SECURA THICK) 2 % cream Apply topically 2 (two) times a day 01/12/2025 multivit xrcfghny-bizv-IU-c alcium (THERA-M) 9 mg iron-400 mcg tablet Take 1 tablet by mouth daily 01/13/2025 omega-3 fatty acids 1,000 mg capsule Take 1 tablet by mouth every morning pen needle, diabetic (Pen Needle) 32 gauge x 5/32 needle Use as directed once a day. 01/12/2025 pen needle, diabetic 32 gauge x 5/32 needle Use as directed 3 times a day. 01/12/2025 polyethylene glycol (MIRALAX) 17 gram packetIndications: constipation Take 1 packet (17 g total) by mouth 2 (two) times a day 12/27/2024 potassium chloride ER (KLOR-CON) 20 mEq CR tablet Take 1 tablet (20 mEq total) by mouth 2 (two) times a day 01/12/2025 6 ramelteon (ROZEREM) 8 mg tabletIndications: Sleep-Onset Insomnia Take 1 tablet (8 mg total) by mouth nightly 12/27/2024 6 rosuvastatin (CRESTOR) 40 mg tabletIndications: coronary artery disease,hyperlipid emia Take 1 tablet (40 mg total) by mouth every morning 01/12/2025 6 senna (SENOKOT) 8.6 mg tabletIndications: constipation Take 1 tablet by mouth 2 (two) times a day 12/27/2024 tamsulosin (FLOMAX) 0.4 mg extended release capsule Take 1 capsule (0.4 mg total) by mouth nightly 09/03/2023 documented as of this encounter Discharge Disposition Disposition Code Departure Means Destination Discharge to home or self care documented in this encounter Plan of Treatment Not on file documented as of this encounter Procedures Procedure Name Priority Date/Time Associated Diagnosis Comments CTA CHEST W CONTRAST Schedule Routine, Read Routine (OP Routine) 01/31/2025 10:11 AM CDT S/P CABG (coronary artery bypass graft) S/P AVR (aortic valve replacement) documented in this encounter Results * CTA Chest W Contrast (01/31/2025 10:11 AM CDT) Anatomical Region Laterality Modality Chest N/A Computed Tomogra phy 01/31/2025 11:0 1 AM CDT Impressions 01/31/2025 2:05 PM CDT 1. Expected postoperative changes of bioprosthetic aortic valve replacement and coronary artery bypass with patent grafts. 2. Left thyroid nodule measuring up to 2.9 cm is unchanged from October 2024 and can be characterized further with ultrasound as clinically indicated. Dictated by: Alonzo Magdaleno MD The radiology attending physician has personally reviewed this study, and had reviewed and/or edited this written report and agrees with it. Electronically signed by: Canelo Loza M.D. Narrative 01/31/2025 2:05 PM CDT EXAMINATION: CTA CHEST W CONTRAST. 3-D reconstructions were also obtained. HISTORY: s/p aortic valve replacement+ annular enlargement. TECHNIQUE: CT angiography of the chest was performed with intravenous contrast according to the standard protocol after the uneventful administration of 69 mL Opti-Ray 350 intravenous contrast. . Vascular 3D images were generated on a dedicated workstation and also interpreted. COMPARISON: 09/22/[address] dated 11/08/2024. FINDINGS: VASCULAR: Interval placement of bioprosthetic aortic valve and coronary artery bypass. There is fat stranding and fluid in the mediastinum, likely postoperative. MENCHACA to LAD graft is patent. There is opacification of a diminutive saphenous vein graft to the 1st obtuse marginal artery. Aorta: Four vessel arch with left vertebral artery arising from the aorta. -Sinus of Valsalva: 35 mm x 34 mm x 34 mm -Descending thoracic aorta:25 mm x 22 mm Other findings: Left subclavian approach pacemaker defibrillator with leads in the right atrium and right ventricle. Hypoattenuating left thyroid nodule measuring 2.9 cm. Gynecomastia. No thoracic lymphadenopathy. Heart size is normal. Severe multivessel coronary artery disease. Small bilateral pleural effusions with associated atelectasis. No acute abnormality in the imaged upper abdomen. Procedure Note Canelo Loza MD - 01/31/2025 EXAMINATION: CTA CHEST W CONTRAST. 3-D reconstructions were also obtained. HISTORY: s/p aortic valve replacement+ annular enlargement. TECHNIQUE: CT angiography of the chest was performed with intravenous contrast according to the standard protocol after the uneventful administration of 69 mL Opti-Ray 350 intravenous contrast. . Vascular 3D images were generated on a dedicated workstation and also interpreted. COMPARISON: 09/22/[address] dated 11/08/2024. FINDINGS: VASCULAR: Interval placement of bioprosthetic aortic valve and coronary artery bypass. There is fat stranding and fluid in the mediastinum, likely postoperative. MENCHACA to LAD graft is patent. There is opacification of a diminutive saphenous vein graft to the 1st obtuse marginal artery. Aorta: Four vessel arch with left vertebral artery arising from the aorta. -Sinus of Valsalva: 35 mm x 34 mm x 34 mm -Descending thoracic aorta:25 mm x 22 mm Other findings: Left subclavian approach pacemaker defibrillator with leads in the right atrium and right ventricle. Hypoattenuating left thyroid nodule measuring 2.9 cm. Gynecomastia. No thoracic lymphadenopathy. Heart size is normal. Severe multivessel coronary artery disease. Small bilateral pleural effusions with associated atelectasis. No acute abnormality in the imaged upper abdomen. IMPRESSION: 1. Expected postoperative changes of bioprosthetic aortic valve replacement and coronary artery bypass with patent grafts. 2. Left thyroid nodule measuring up to 2.9 cm is unchanged from October 2024 and can be characterized further with ultrasound as clinically indicated. Dictated by: Alonzo Magdaleno MD The radiology attending physician has personally reviewed this study, and had reviewed and/or edited this written report and agrees with it. Electronically signed by: Canelo Loza M.D. Meño Yeager MD IMG CT PROCEDURES Fi nal Result documented in this encounter Visit Diagnoses Diagnosis S/P CABG (coronary artery bypass graft) Postsurgical aortocoronary bypass status S/P AVR (aortic valve replacement) Heart valve replaced by other means documented in this encounter Administered Medications Inactive Administered Medications - up to 3 most recent administrations Medication Order MAR Action Action Date Dose Rate Site ioversoL (OPTIRAY 350) syringe 75 mL 75 mL, intravenous, Once in imaging, contrast, Starting on Thu01/31/25 at 0956, For 1 dose Contrast Given 01/31/2025 9:58 AM CDT 69 mL documented in this encounter Orders Medications Ordered That Elver ht Not Have Been Administered Count Last Ordered Date First Ordered Date ioversoL (OPTIRAY 350) syringe 75 mL 1 01/2025 documented in this encounter Care Teams Wheat Inspector Relationship Specialty Start Date End Date Anthony Hogan DO [facility] [place] [address] PCP - General Internal Medicine 08/25/24 Liam Norris MD [address] [facility] [address] [place] [address] Referring Physician Cardiology 10/19/24 Meño Yeager MD [id number] [place] [address] Consulting Physician Cardiothoracic Surgery 12/27/24 Miscellaneous, Not In File 12/27/24 documented as of this encounter
--- OUTSIDE RECORDS SUMMARY | 2025-01-31 13:48 | XMS_ITS | Encounter Summary ---
Author Organization [facility] Healthcare Address [address] [place] [address] Care Team Providers Care Marble Supervisor Name Role Phone Anthony Hogan DO Primary Care Provider [phone] Liam Norris MD Unavailable [phone] Meño Chandra MD Unavailable [phone] Miscellaneous, Not In File Unavailable Unava ilable Reason for Referral * Cardiology (Routine) - Closed Specialty Diagnoses / Procedures Referred By Chad rajput Referred To Contact Diagnoses S/P CABG (coronary artery bypass graft) S/P AVR (aortic valve replacement) Procedures Transthoracic Echo (TTE) Complete W Doppler/CF Meño Chandra MD [address] [facility] [id number] [place] [address] Phone: tel: fax: [facility] [address] [place] [address] Referral ID Status Reason Start Date Expiration Date Visits Re quested Visits Authorized [id number] Closed 12/27/2024 01/26/2026 1 1 Reason for Visit * Cardiology (Routine) - Closed Specialty Diagnoses / Procedures Referred By Contac t Referred To Contact Diagnoses S/P CABG (coronary artery bypass graft) S/P AVR (aortic valve replacement) Procedures Transthoracic Echo (TTE) Complete W Doppler/CF Meño Chandra MD [id number] [place] [address] Phone: tel: fax: [address] [address] Referral ID Status Reason Start Date Expiration Date Visits Re quested Visits Authorized [id number] Closed 12/27/2024 01/26/2026 1 1 Encounter Details Date Type Department Care Team (Latest Contact Info) Description 01/31/2025 1:48 PM CDT - 01/31/2025 11:59 PM CDT Hospital Encounter [facility] [address] [place] [address] 8[address] [place] [address] S/P CABG (coronary artery bypass graft); S/P [...] 12/21/2024 How often do you attend [employer] or pentecostal services? Never 12/21/2024 Do you belong to any clubs o r organizations such as buddhism groups, unions, fraternal or athletic groups, or [...] any time in the past 12 m [facility], were you homeless or living in a mcc (including now)? No 12/21/2024 Social Connection and Isolation Panel Answer Date Recorded In a typical week, how many times do you talk on the phone with family, friends, or neighbors? More than three times a week 01/04/2025 How often do you get togethe r with friends or relatives? More than three times a week 01/04/2025 How often do you attend chur ch or pentecostal services? Never 01/04/2025 Do you belong to any clubs o r organizations such as buddhism groups, unions, fraternal or athletic groups, or [...] any time in the past 12 m [facility], were you homeless or living in a mcc (including now)? 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 1 each 12/20/2024 [...] by mouth daily before breakfast 0 01/12/2025 5 ezetimibe (ZETIA) 10 mg tablet Take 1 tablet (10 mg total) by mouth every morning 01/12/2025 6 furosemide (LASIX) 80 mg tablet Take 1 tablet (80 mg total) by mouth 2 (two) times a day 12/27/2024 6 gabapentin (NEURONTIN) 100 mg capsule Take 1 [...] 2 (two) times a day 01/12/2025 6 miconazole (SECURA THICK) 2 % cream Apply topically 2 (two) times a day 01/12/2025 multivit lvlssegj-tyts-PL-c alcium (THERA-M) 9 mg iron-400 mcg tablet [...] Procedure Name Priority Date/Time Associated Diagnosis Comments TRANSTHORACIC ECHO (TTE) COMPLETE W DOPPLER/CF W CONTRAST Routine 01/31/2025 3:30 PM CDT S/P CABG (coronary artery bypass graft) S/P AVR (aortic valve replacement) documented in this encounter Results * TRANSTHORACIC ECHO (TTE) COMPLETE W DOPPLER/CF W CONTRAST (01/31/2025 3:30 PM CDT) EF Mod BP 56 % CONS SCIMAGE Anatomical Region Laterality Modality Ultrasound 01/31/2025 2:24 PM CDT Narrative 02/01/2025 9:[address] [facility] Cardiac [facility] [place] [address] [place] [address] Transthoracic Echocardiographic Report Patient Name: JAI TO W : 1945 (79y 6m) Sex: M Study Date: 01/31/2025 02:24:56 PM Ht(Inch): 70 Wt(Lb): 283.07 BSA: 2.52 Customer Operations Manager: Maris Baltazar RDCS Location: [facility] Order Provider: MEÑO CHANDRA Heart Rate: 60 BMI: 40.61 BP: 89 / 45 Ref Provider: MEÑO CHANDRA PROCEDURES: Echocardiographic Report: Transthoracic complete echo with strain imaging and contrast, 2D, spectral and tissue Doppler, color flow Doppler, M-mode. Contrast: Contrast Enhancement was Employed: Due to suboptimal image quality with inadequate visualization of at least 2 of 16 LV wall segments in any view after initial imaging. Perflutren contrast was administered using the volume necessary to obtain adequate images. 0.8 ml Optison Administered, (2.2 ml wasted). INDICATIONS: Z95.1 Presence of aortocoronary bypass graft and Z95.2 Presence of prosthetic heart valve. CONCLUSIONS: 1. Normal left ventricular size based on volume index. Concentric LV remodeling. Normal left ventricular systolic function. The Ejection Fraction (Lemus's) is measured at 56 %. Grade II diastolic dysfunction (elevated mean LA pressure). The average global longitudinal strain is borderline. 2. Normal right ventricular size. Wire noted in the right heart. TV S'= 0.08 m/s (Mildly decreased function). 3. 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 Mild paravalvular aortic regurgitation. BioAVR Gradients Mean 17 mmHg, Peak 31mmHg. DI=0.48. 4. The estimated pulmonary artery systolic pressure is 36.0 mmHg. Mild pulm HTN. ATTESTATION: I have personally reviewed and interpreted this study without fellow or resident. DISCLAIMER: The study images and the final report will be retained in the patient chart by the Echo Laboratory for the legally required time period. This chart constitutes the legal record of any testing performed. FINDINGS: Left Ventricle: Normal left ventricular size based on volume index. Concentric LV remodeling. Normal left ventricular systolic function. The Ejection Fraction (Lemus's) is measured at 56 %. Grade II diastolic dysfunction (elevated mean LA pressure). The average global longitudinal strain is borderline. The LV global strain is: -17.0 %. Right Ventricle: Normal right ventricular size. Wire noted in the right heart. TV S'= 0.08 m/s (Mildly decreased function). Left Atrium: The left atrium is normal in size. Right Atrium: The right atrium is normal in size. Mitral Valve: Normal mitral valve structure. Mild mitral valve regurgitation. Aortic Valve: The mean transaortic gradient is 17 mmHg. Aortic valve dimensionless index is 0.49. 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 The aortic valve prosthesis appears well seated. The aortic prosthesis demonstrates normal leaflet motion. Mild paravalvular aortic regurgitation. BioAVR Gradients Mean 17 mmHg, Peak 31mmHg. DI=0.48. Tricuspid Valve: Normal tricuspid valve structure. Mild tricuspid regurgitation. The estimated pulmonary artery systolic pressure is 36.0 mmHg. Mild pulm HTN. Pulmonic Valve: Normal pulmonic valve structure. No pulmonic regurgitation. Pericardium: Normal pericardium without pericardial effusion. Aorta: Normal aortic root. IVC: IVC is normal in size. The IVC was <2.1 cm and collapsibility <50%. (est. RA pressure 6-10 mmHg). MEASUREMENTS: 2D/MM Value Range Doppler Value Range LVIDd 2D 5.23 cm [ 4.20 - 5.80 ] AV Peak Gregor 2.8 m/s [ 1.0 - 1.7 ] LVIDs 2D 3.41 cm [ 2.50 - 4.00 ] AV Peak PG 31.36 mmHg IVSd 2D 1.22 cm [ 0.60 - 1.00 ] AV Mean PG 17 mmHg LVPWd 2D 1.19 cm [ 0.60 - 1.00 ] AV VTI 64.9 cm LV Thickness Ratio 1.0 LVOT Peak Gregor 1.3 m/s [ 0.7 - 1.1 ] LV FS 2D 34.86 % [ 25.00 - 43.00 ] LVOT Peak PG 6.76 mmHg LV Mass 2D 257.18 g LVOT Mean PG 4 mmHg LV Mass Index 2D 102.13 g/m2 LVOT VTI 31.6 cm RWT 0.46 LVOT/AV VTI 0.49 - Dimensionless index (DVI) EDV Mod BP 105.56 ml [ 62.00 - 150.00 ] MV E Peak Gregor 1.4 m/s [ 0.6 - 1.3 ] LV EDV Index 41.92 ml/m2 MV A Peak Gregor 1.1 m/s [ 1.0 - 1.2 ] ESV Mod BP 46.30 ml [ 21.00 - 61.00 ] MV E/A 1.3 ratio [ 0.8 - 1.5 ] EF Mod BP 56 % [ 52 - 72 ] MV Decel Time 274.51 msec [ 104.00 - 258.00 ] LV GLS -17.0 % [ -25.0 - -18.0 ] Med E` Gregor 5.2 cm/sec [ 8.0 - 25.0 ] LA Length 4C 6.03 cm Lat E` Gregor 10.1 cm/sec [ 10.0 - 25.0 ] LA Length 2C 5.72 cm Average E/E` 18.30 LA Volume BP 70.86 ml RV S` 8.22 cm/sec LA Volume Index 28.14 ml/m2 [ 16.00 - 34.00 ] TR Peak Gregor 2.5 m/s [ 1.0 - 2.8 ] RV Base Dimen 2D 3.4 cm [ 2.5 - 4.2 ] TR Peak PG 25.0 mmHg TAPSE 1.52 cm [ 1.71 - 5.00 ] PV Peak Gregor 0.9 m/s [ 0.4 - 0.8 ] RA Volume 56.26 ml PV Peak PG 3.24 mmHg RA Volume Index 22.34 ml/m2 IVC Diam 1.61 cm IVC Collapse 43 % Electronically Signed By: Ashu Hammond M.D. 02/01/2025 9:10:48 AM CDT Procedure Note Ashu Hammond MD PhD - 02/01/2025 [facility] Card[facility] [place] [address] [place] [address] Transthoracic Echocardiographic Report Patient Name: JAI TO W : 1945 (79y 6m) Sex: M Study Date: 01/31/2025 02:24:56 PM Ht(Inch): 70 Wt(Lb): 283.07 BSA: 2.52 Customer Operations Manager: Maris Baltazar RDCS Location: [facility] Order Provider:MEÑO CHANDRA Heart Rate: 60 BMI: 40.61 BP: 89 / 45 Ref Provider: MEÑO CHANDRA PROCEDURES: Echocardiographic Report: Transthoracic complete echo with strain imagingand contrast, 2D, spectral and tissue Doppler, color flow Doppler, M-mode. Contrast: Contrast Enhancement was Employed: Due to suboptimal imagequality with inadequate visualization of at least 2 of 16 LV wall segments in any viewafter initial imaging. Perflutren contrast was administered using the volume necessaryto obtain adequate images. 0.8 ml Optison Administered, (2.2 ml wasted). INDICATIONS: Z95.1 Presence of aortocoronary bypass graft and Z95.2 Presence ofprosthetic heart valve. CONCLUSIONS: 1. Normal left ventricular size based on volume index. Concentric LVremodeling. Normal left ventricular systolic function. The Ejection Fraction (Lemus's) ismeasured at 56 %. Grade II diastolic dysfunction (elevated mean LA pressure). The averageglobal longitudinal strain is borderline. 2. Normal right ventricular size. Wire noted in the right heart. TV S'=0.08 m/s (Mildly decreased function). 3. 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 Mildparavalvular aortic regurgitation. BioAVR Gradients Mean 17 mmHg, Peak 31mmHg. DI=0.48. 4. The estimated pulmonary artery systolic pressure is 36.0 mmHg. Mildpulm HTN. ATTESTATION: I have personally reviewed and interpreted this study without fellow orresident. DISCLAIMER: The study images and the final report will be retained in the patientchart by the Echo Laboratory for the legally required time period. This chart constitutesthe legal record of any testing performed. FINDINGS: Left Ventricle: Normal left ventricular size based on volume index.Concentric LV remodeling. Normal left ventricular systolic function. The EjectionFraction (Lemus's) is measured at 56 %. Grade II diastolic dysfunction (elevated mean LApressure). The average global longitudinal strain is borderline. The LV global strain is:-17.0 %. Right Ventricle: Normal right ventricular size. Wire noted in the rightheart. TV S'= 0.08 m/s (Mildly decreased function). Left Atrium: The left atrium is normal in size. Right Atrium: The right atrium is normal in size. Mitral Valve: Normal mitral valve structure. Mild mitral valveregurgitation. Aortic Valve: The mean transaortic gradient is 17 mmHg. Aortic valvedimensionless index is 0.49. 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 Theaortic valve prosthesis appears well seated. The aortic prosthesis demonstrates normalleaflet motion. Mild paravalvular aortic regurgitation. BioAVR Gradients Mean 17 mmHg,Peak 31mmHg. DI=0.48. Tricuspid Valve: Normal tricuspid valve structure. Mild tricuspidregurgitation. The estimated pulmonary artery systolic pressure is 36.0 mmHg. Mild pulmHTN. Pulmonic Valve: Normal pulmonic valve structure. No pulmonicregurgitation. Pericardium: Normal pericardium without pericardial effusion. Aorta: Normal aortic root. IVC: IVC is normal in size. The IVC was <2.1 cm and collapsibility <50%.(est. RA pressure 6-10 mmHg). MEASUREMENTS: 2D/MM Value Range DopplerValue Range LVIDd 2D 5.23 cm [ 4.20 - 5.80 ] AV Peak Vel2.8 m/s [ 1.0 - 1.7 ] LVIDs 2D 3.41 cm [ 2.50 - 4.00 ] AV Peak PG31.36 mmHg IVSd 2D 1.22 cm [ 0.60 - 1.00 ] AV Mean PG17 mmHg LVPWd 2D 1.19 cm [ 0.60 - 1.00 ] AV VTI64.9 cm LV Thickness Ratio 1.0 LVOT Peak Vel1.3 m/s [ 0.7 - 1.1 ] LV FS 2D 34.86 % [ 25.00 - 43.00 ] LVOT Peak PG6.76 mmHg LV Mass 2D 257.18 g LVOT Mean PG4 mmHg LV Mass Index 2D 102.13 g/m2 LVOT VTI31.6 cm RWT 0.46 LVOT/AV VTI0.49 - Dimensionless index (DVI) EDV Mod BP 105.56 ml [ 62.00 - 150.00 ] MV E Peak Vel1.4 m/s [ 0.6 - 1.3 ] LV EDV Index 41.92 ml/m2 MV A Peak Vel1.1 m/s [ 1.0 - 1.2 ] ESV Mod BP 46.30 ml [ 21.00 - 61.00 ] MV E/A1.3 ratio [ 0.8 - 1.5 ] EF Mod BP 56 % [ 52 - 72 ] MV Decel Zvoi709.51 msec [ 104.00 - 258.00 ] LV GLS -17.0 % [ -25.0 - -18.0 ] Med E` Vel5.2 cm/sec [ 8.0 - 25.0 ] LA Length 4C 6.03 cm Lat E` Vel10.1 cm/sec [ 10.0 - 25.0 ] LA Length 2C 5.72 cm Average E/E`18.30 LA Volume BP 70.86 ml RV S`8.22 cm/sec LA Volume Index 28.14 ml/m2 [ 16.00 - 34.00 ] TR Peak Vel2.5 m/s [ 1.0 - 2.8 ] RV Base Dimen 2D 3.4 cm [ 2.5 - 4.2 ] TR Peak PG25.0 mmHg TAPSE 1.52 cm [ 1.71 - 5.00 ] PV Peak Vel0.9 m/s [ 0.4 - 0.8 ] RA Volume 56.26 ml PV Peak PG3.24 mmHg RA Volume Index22.34 ml/m2 IVC Diam1.61 cm IVC Collapse 43 % Electronically Signed By: Ashu Hammond M.D. 02/01/2025 9:10:48 AM CDT Meño Chandra MD CV ECHO PROCEDURES F inal Result documented in this encounter Visit Diagnoses Diagnosis S/P CABG (coronary artery bypass graft) Postsurgical aortocoronary bypass status S/P AVR (aortic valve replacement) Heart valve replaced by other means documented in this encounter Administered Medications Inactive Administered Medications - up to 3 most recent administrations Medication Order MAR Action Action Date Dose Rate Site perflutren protein-a (OPTISON) 3 mL in sodium chloride 0.9% 8 mL syringe 1-8 mL, intravenous, Once in imaging, contrast, Starting on Thu01/31/25 at 1409, For 1 dose, Intra-Procedure (CV) Contrast Given 01/31/2025 3:31 PM CDT 2 mL documented in this encounter Orders Medications Ordered That Elver ht Not Have Been Administered Count Last Ordered Date First Ordered Date perflutren protein-a (OPTISO N) 3 mL in sodium chloride 0.9% 8 mL syringe 1 01/31/2025 documented in this encounter Care Teams Marble Supervisor Relationship Specialty Start Date End Date Anthony Hogan DO [facility] [facility] [address] [place] [address] PCP - General Internal Medicine 08/25/24 Liam Norris MD [facility] [address] Referring Physician Cardiology 10/19/24 Meoñ Chandra MD [id number] [place] [address] Consulting Physician Cardiothoracic Surgery 12/27/24 Miscellaneous, Not In File 12/27/24 documented as of this encounter
[2025-02-02] VITALS (50 sets, daily range): BP systolic 77–142; BP diastolic 40–124; PULSE 60–65; RESP 8–30; TEMP 36.5; O2SAT 89–100
--- NOTE | ~2025-02-02 | CT_ITS ---
CT HEAD NON-CONTRAST Clinical History: AMS Comparison: CT brain 06/24/2017 Technique: Unenhanced axial images skull base to vertex Coronal, sagittal reformats CT images acquired with automatic exposure control for dose reduction DLP: 787 mGy-cm Findings: Left basal ganglia lacune. Sulci, ventricles: Unremarkable. No intracerebral hemorrhage. No evidence acute territorial infarct. No mass effect, midline shift. Bony calvarium intact. Visualized paranasal sinuses: Clear. Mastoid air cells: Clear. IMPRESSION: 1. No acute intracranial findings. Reviewed, dictated and finalized at location R.
--- NOTE | ~2025-02-02 | XR_ITS ---
EXAMINATION: XR chest port-a-cath/central, 02/02/2025 4:08 CDT HISTORY: central placement COMPARISON: No comparisons available. Technique: Single view. Findings: Moderate pulmonary venous congestion. No pneumothorax. Moderate cardiomegaly. Mediastinal and hilar contours are within normal limits. Poststernotomy. Left pacemaker. Right central line terminates in the SVC. Impression: Central line placement. CHF. Reviewed, dictated and finalized at location A. Impression: Central line placement. CHF.
--- NOTE | ~2025-02-02 | CT_ITS ---
Exam: CT chest, abdomen and pelvis without contrast Clinical History: [Sepsis. Kidney failure ] Comparison: [ None available] Technique: Multiple axial CT images of the chest, abdomen and pelvis were obtained without IV contrast. Sagittal and coronal reformatted images were obtained. FINDINGS: Lungs and pleura: [ Small to moderate-sized bilateral pleural effusions.] Visualized tracheobronchial tree is patent. Small to moderate-sized bandlike and patchy consolidations in the mid and lower lungs. Mediastinum and pulmonary adolfo: [ No mass or adenopathy.] Axillary/intramammary and supraclavicular: [ No mass or adenopathy.] Heart and great vessels: [ Heart is mildly enlarged..[ [ No pericardial effusion.] [ No aneurysm.] There are coronary artery calcifications. Chest Wall: Left-sided generator in the cutaneous soft tissues anterior to the left pectoralis muscle. Liver: [ No mass.] [ No intrahepatic biliary duct dilatation.] Gallbladder: Mild gallbladder wall thickening. Small amount of pericholecystic fluid. Acute cholecystitis is possible in the appropriate clinical setting. Common bile duct: [ Normal caliber.] [ No stones.] Spleen: [ Within normal limits.] Pancreas: [ No mass. No pancreatic fluid collection.] Adrenals: [ No masses.] Kidneys: [ No masses. No hydronephrosis.][ Contrast is noted in the pelvicalyceal systems, uterus and bladder] Lymph nodes: [ No adenopathy in the abdomen or pelvis.] Stomach, small bowel and colon: [ No bowel wall thickening or obstruction.] Moderate amount of stool. Mild diverticulosis. Peritoneum cavity: [ No mesenteric fat stranding or fluid.] Bladder: Concentric thickening of the santoyo of the mildly distended bladder. Prostate gland is mildly enlarged. Osseous structures: [ No acute fracture or destructive lesion.] [ Multilevel degenerative change in the visualized spine.] Bones appear osteopenic. Abdominal aorta: [ No aneurysm.] Additional findings: There is a 2.9 cm left thyroid nodule. A thyroid ultrasound is recommended. The patient's arms are down which limits evaluation. Mild anasarca. Moderate elevation of the right hemidiaphragm. IMPRESSION: 1. Small to moderate-sized bandlike and patchy consolidations in the mid and lower lungs. Differential includes a combination of atelectasis and/or pneumonia. Recommend follow-up to resolution to exclude an underlying mass.. 2. Small to moderate-sized bilateral pleural effusions. 3. Mild gallbladder wall thickening. Small amount of pericholecystic fluid. Acute cholecystitis is possible in the appropriate clinical setting. Consider a HIDA scan for further assessment. 4. Concentric thickening of the santoyo of the mildly distended bladder. Differential includes incomplete bladder wall distention or cystitis. 5. There is a 2.9 cm left thyroid nodule. A thyroid ultrasound is recommended. Reviewed, dictated and finalized at location Q. IMPRESSION: 1. Small to moderate-sized bandlike and patchy consolidations in the mid and lo wer lungs. Differential includes a combination of atelectasis and/or pneumonia. Recommend follow-up to resolution to exclude an underlying mass.. 2. Small to moderate-sized bilateral pleural effusions. 3. Mild gallbladder wall thickening. Small amount of pericholecystic fluid. Acu te cholecystitis is possible in the appropriate clinical setting. Consider a HI DA scan for further assessment. 4. Concentric thickening of the santoyo of the mildly distended bladder. Differen tial includes incomplete bladder wall distention or cystitis. 5. There is a 2.9 cm left thyroid nodule. A thyroid ultrasound is recommended.
--- NOTE | ~2025-02-02 | XR_ITS ---
Examination: XR chest 1V portable Clinical History: Hypoglycemia Comparison: X-rays 10/08/2023 Technique: Portable AP Findings: Left pacemaker. Cardiomegaly. CP angle blunting, and bibasilar atelectasis. No acute bony abnormality. IMPRESSION: 1. Pleural effusions with bibasilar atelectasis. Reviewed, dictated and finalized at location R.
--- NOTE | 2025-02-02 00:51 | ECG_ITS ---
Test Date: 2025-02-02 00:39:17 Measurements Intervals [place] Rate: 59 P: 240 IN: 356 QRS: -14 QRSD: 110 T: 40 QT: 499 QTc: 498 Interpretive Statements ELECTRONIC ATRIAL PACEMAKER NONSPECIFIC ST & T-WAVE ABNORMALITY PROLONGED QT INTERVAL No previous ECG available for comparison Electronically Signed On 02-02-2025 11:07:12 CDT by Blaine Renee M.D.
--- NOTE | 2025-02-02 00:59 | ED.GENADULT ---
HPI - General Adult General Chief complaint: Unspecified Stated complaint: HYPOGLYCEMIA/AMS Time Seen by Provider: 02/02/25 00:44 History of Present Illness HPI narrative: This is a 79-year-old male presenting for and altered mental status. 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 He felt very dehydrated the last 2 days and has been drinking Pedialyte but not eating very much. Today he took 35 units of insulin but did not end up eating dinner. He then became unconscious. EMS was called and his blood sugar was read as low. He was given IV dextrose with improvement in his blood glucose. However he was still hypotensive. He received 500 cc of normal saline from EMS. Patient says that he is currently having chest pain although he has had that consistently since his surgery. He also has pain over his tailbone where he has a stage 2 decubitus ulcer. He denies fevers chills shortness of breath URI symptoms nausea vomiting or diarrhea. Related Data Home Medications ?Medication ?Instructions ?Recorded ?Confirmed ?Last Taken ?Type aspirin 81 mg tablet,delayed 81 mg PO QPM 05/06/19 01/12/25 Unknown History release (Adult Aspirin Regimen) omega-3 fatty acids 1,000 mg 1,000 mg PO DAILY 05/06/19 01/12/25 Unknown History capsule (Fish Oil Concentrate) benzonatate 200 mg capsule 200 mg PO TID PRN cough 12/27/24 01/12/25 Unknown History cyanocobalamin (vitamin B-12) 1,000 mcg PO DAILY PRN supplement 12/27/24 01/12/25 Unknown History 1,000 mcg capsule docusate sodium 100 mg capsule 100 mg PO BID 12/27/24 01/12/25 Unknown History insulin glargine 100 unit/mL 52 unit subcut QPM 12/27/24 01/12/25 01/11/25 History subcutaneous solution (Lantus U-100 Insulin) multivitamin 1 tablet PO DAILY 12/27/24 01/12/25 Unknown History polyethylene glycol 3350 17 gram 17 g PO BID 12/27/24 01/12/25 01/12/25 History oral powder packet (Miralax) potassium chloride 20 mEq 20 meq PO BID 12/27/24 01/12/25 Unknown History tablet,extended release (K-Tab) sennosides 8.6 mg tablet (Senna 8.6 mg PO BID 12/27/24 01/12/25 01/12/25 History Lax) magnesium oxide 400 mg PO DAILY 01/12/25 01/12/25 Unknown History miconazole nitrate 2 % topical 1 applic topical BID 01/12/25 01/12/25 Unknown History cream (Antifungal (miconazole)) Allergies Allergy/AdvReac Type Severity Reaction Status Date / Time No Known Allergies Allergy Verified 01/12/25 22:12 [facility] Past Medical History Medical History Type 2 diabetes mellitus with chronic kidney disease Type 2 diabetes mellitus Tinea unguium Tinea pedis Lipoprotein deficiency Erectile dysfunction Diverticulitis of colon (without mention of hemorrhage) Transient cerebral ischemia Positive for macroalbuminuria Hypertension Alcoholism Type 2 diabetes mellitus with hyperglycemia Stroke Surgical History Surgical History No pertinent past surgical history Family History Family History Sibling Diabetes mellitus Hypertension Family history of elevated blood lipids Mother Family history of glaucoma Hypertension Family history of elevated blood lipids Diabetes mellitus Acute myocardial infarction Father Diabetes mellitus Family history of elevated blood lipids Family history of cardiovascular disease Cerebrovascular accident Other Family history of blood dyscrasia Family history of congestive heart failure Social History Social History Social History: Caffeine-coffee Smoking packs per day: 0 Smoking cigarettes per day: 0.0 Years smoked: 30 Smoking pack-years: 0.00 Smoking status: Current every day smoker Tobacco type: cigars Second hand tobacco smoke exposure: Yes Smoking end date: 11/23/24 Additional smoking assessment comments: 3 cigars per week Alcohol intake: former Drinks per week: 0 Alcohol use details: quit 1994 Substance use: never Substance use type: does not use Lack of Transportation: No Lack of Food: Never True Current Housing: I Have Housing Concerned About Future Housing: No Difficulty Paying Gas/Electric Bills: No Difficulty Paying for Meds: No Currently Unemployed: No Education: High School Diploma/GED Difficulty w/ Childcare or Family Care: No Gender identity (if verbalized by the patient): Male Sexual Orientation (if Verbalized by the Patient): Straight or Heterosexual Spiritual care concerns: No Agree to blood products: Yes Exam Narrative: APPEARANCE: No apparent distress. Lethargic Head: atraumatic. EYES: EOMI, NOSE: Atraumatic NECK: Trachea midline RESPIRATORY: Slightly tachypneic bibasilar crackles CARDIOVASCULAR: RRR, +1 edema lower extremities, well-healed surgical scar over the sternum ABDOMINAL: Non-distended soft nontender MUSCULOSKELETAl: No obvious deformities NEURO: Alert. Moving 4/4 extremities SKIN:: Small stage II sacral decubitus that signs of an infection PSYCHIATRIC: Normal affect Course Vital Signs Vital signs: Vital Signs Temperature 97.7 F 02/02/25 00:31 Pulse Rate 60 02/02/25 00:31 Respiratory Rate 16 02/02/25 00:31 Blood Pressure 142/124 H 02/02/25 00:31 Pulse Oximetry 92 02/02/25 00:31 Oxygen Delivery Room Air 02/02/25 00:31 Temperature 97.7 F 02/02/25 00:31 Pulse Rate 65 02/02/25 00:49 Respiratory Rate 16 02/02/25 00:31 Blood Pressure 142/124 H 02/02/25 00:31 Pulse Oximetry 92 02/02/25 00:31 Oxygen Delivery Room Air 02/02/25 00:31 Procedures Central Line Placement Right IJ: Central Line Date: 02/02/25 Discussed w/ the patient/family/POA,the placement of a central venous catheter, including its clinical necessity/indication & associated potential risks, benifits and alternatives.: Yes Time Out Performed: Yes Patient Placed on Monitor/Pulse Ox: Yes Max. Sterile Barrier Technique: Caps, large sterile sheet and hand hygiene Central Line Prep: 2% chlorhexidine scrub and sterile drapes applied Emergently Placed, Full Sterile: prep not done Technique: US-Guided Local Anesthetic: lidocaine 1% Amount of anesthesia used (mL): 3 Ultrasound Used for Placement: Yes Central Line Lumen Inserted: triple Post Procedure: sutured in place, good blood return, all ports aspirated, flushed, capped and sterile dressing applied Post Procedure X-Ray: tip of catheter in good position and no pneumothorax seen Patient Tolerated Procedure: well Complications: none Medical Decision Making MDM Narrative Medical decision making narrative: -Course: 79-year-old male presenting for altered mental status. Altered mental status appears to be due to hypoglycemia. Patient was given dextrose and fed carbohydrates, however he continued to be persistently hypoglycemic and eventually required a D10 drip. Patient is also hypotensive. Patient appears dehydrated although he has a history of congestive heart failure. Patient given cautious fluid resuscitation. After 2 L the patient was still persistently hypotensive. Attempted to give another L but at this point he started complaining shortness of breath. Fluids were stopped and a central line was placed and he was started on nor epi. D10 drip was stopped and the patient will be given D50 amps as needed for hypoglycemia. CT of the chest abdomen pelvis was significant for possible right lower lobe pneumonia and bilateral pleural effusions. No findings in the abdomen. Patient started on broad-spectrum antibiotics for pneumonia. Patient also found to be in acute kidney failure with a creatinine of 6.87 from a baseline of 1.2. Lactic was 4.9 -> 5.5. Lactic did not clear as he was persistently hypotensive. This will be repeated after he has obtained an appropriate map. Patient's troponin and BNP are elevated although his ARF limits their clinical utility. will continue to trend trops. He is not any complaints of chest pain outside of the chronic pain he has had since surgery. EKG showed nonspecific ST changes. Patient was accepted at [facility] under Dr. Leyva and Dr. Yeager. Patient will be transferred. -DDX includes but is not limited to: Dehydration, gastroenteritis, sepsis pneumonia UTI medication complication Vital Signs Vital Signs: Vital Signs Temperature 97.7 F 02/02/25 00:31 Pulse Rate 60 02/02/25 00:31 Respiratory Rate 16 02/02/25 00:31 Blood Pressure 142/124 H 02/02/25 00:31 Pulse Oximetry 92 02/02/25 00:31 Oxygen Delivery Room Air 02/02/25 00:31 Temperature 97.7 F 02/02/25 00:31 Pulse Rate 65 02/02/25 00:49 Respiratory Rate 16 02/02/25 00:31 Blood Pressure 142/124 H 02/02/25 00:31 Pulse Oximetry 92 02/02/25 00:31 Oxygen Delivery Room Air 02/02/25 00:31 Lab Data 02/02/25 00:56 02/02/25 00:56 Labs: Lab Results 02/02/25 02/02/25 02/02/25 Range/Units 00:56 01:28 02:27 WBC 8.9 (4.5-10.0) K/mm3 RBC 3.15 L (4.6-6.20) M/mm3 Hgb 9.3 L (14.0-18.0) g/dL Hct 30.7 L (42.0-52.0) % MCV 97.5 (80-100) fl MCH 29.5 (26-34) pg MCHC 30.3 L (32-36) g/dl RDW 15.6 H (11.5-14.5) % Plt Count 283 (150-375) k/mm3 MPV 10.2 (7.4-10.4) fl Immature Gran % (Auto) 1.3 H (0-0.5) % Neut % (Auto) 69.4 (45.5-73.1) % Lymph % (Auto) 15.9 L (18.3-44.2) % [place] % (Auto) 12.0 H (2.6-8.5) % Eos % (Auto) 1.1 (0-4.4) % Baso % (Auto) 0.3 (0.2-1.2) % Lymph # (Auto) 1.42 (0.9-3.2) K/mm3 [place] # (Auto) 1.1 H (0.1-0.6) K/mm3 Eos # (Auto) 0.1 (0-0.3) K/mm3 Baso # (Auto) 0.0 (0.0-0.1) K/mm3 Abs Immat Gran (auto) 0.12 H (0.00-0.031) K/mm3 Absolute Neuts (auto) 6.2 (1.3-6.7) K/mm3 Absolute Nucleated RBC 0.000 (0.0-0.012) K/mm3 Nucleated RBC % 0.0 (0.0-0.2) % PT 26.7 H (11.1-14.7) Seconds INR 2.5 APTT 35.7 (22.3-36.8) Seconds Sodium 135 L (137-145) mmol/L Potassium 5.4 H (3.4-5.0) mmol/L Chloride 102 (98-107) mmol/L Carbon Dioxide 19 L (22-30) mmol/L Anion Gap 14 H (4-12) mmol/L BUN 74 H D (9-20) mg/dL Creatinine 6.87 H (0.7-1.3) mg/dL Estim Creat Clear Calc Not Reportable Estimated GFR 8 L (59 - ) Glucose 94 (65-110) mg/dL POC Capillary Glucose 79 67 (65-105) mg/dl Lactic Acid 4.8 H* (0.7-2.0) mmol/L Calcium 8.2 L (8.4-10.2) mg/dL Phosphorus 5.2 H (2.5-4.5) mg/dL Magnesium 2.7 H (1.6-2.3) mg/dL Total Bilirubin 0.4 (0.2-1.3) mg/dL AST 87 H (17-59) U/L ALT 172 H (6-50) U/L Alkaline Phosphatase 184 H (38-126) U/L Troponin I 0.043 H* (0.000-0.034) ng/mL NT-Pro-B Natriuret Pep 79305 H (19.9-100) pg/mL Total Protein 6.5 (6.3-8.2) g/dL Albumin 3.4 L (3.5-5.1) g/dL Lipase 343 H (23-300) U/L TSH (Reflex) 5.750 H (0.465-4.68) uIU/mL Free T4 Pending Urine Color (Yellow) Urine Appearance (Clear) Urine pH (5.0-9.0) Ur Specific [place] (1.001-1.035) Urine Protein (Negative) mg/dL Urine Glucose (UA) (Negative) mg/dL Urine Ketones (Negative) mg/dL Ur Blood (Man) (Negative) Urine Nitrate (Negative) Urine Bilirubin (Negative) Urine Urobilinogen (<2.0) mg/dL Leukocyte Esterase Rfl (Negative) MADDIE/UL Urine RBC (0-2) /hpf Urine WBC (0-3) /hpf Ur Squamous Epith Cells (Few) /hpf Urine Bacteria /hpf Urine Casts Influenza A (RT-PCR) Negative (Negative) Influenza B (RT-PCR) Negative (Negative) RSV (RT-PCR) Negative (Negative) SARS-CoV-2 RNA (RT-PCR) Negative (Negative) 02/02/25 02/02/25 Range/Units 02:35 02:44 WBC (4.5-10.0) K/mm3 RBC (4.6-6.20) M/mm3 Hgb (14.0-18.0) g/dL Hct (42.0-52.0) % MCV (80-100) fl MCH (26-34) pg MCHC (32-36) g/dl RDW (11.5-14.5) % Plt Count (150-375) k/mm3 MPV (7.4-10.4) fl Immature Gran % (Auto) (0-0.5) % Neut % (Auto) (45.5-73.1) % Lymph % (Auto) (18.3-44.2) % [place] % (Auto) (2.6-8.5) % Eos % (Auto) (0-4.4) % Baso % (Auto) (0.2-1.2) % Lymph # (Auto) (0.9-3.2) K/mm3 [place] # (Auto) (0.1-0.6) K/mm3 Eos # (Auto) (0-0.3) K/mm3 Baso # (Auto) (0.0-0.1) K/mm3 Abs Immat Gran (auto) (0.00-0.031) K/mm3 Absolute Neuts (auto) (1.3-6.7) K/mm3 Absolute Nucleated RBC (0.0-0.012) K/mm3 Nucleated RBC % (0.0-0.2) % PT (11.1-14.7) Seconds INR APTT (22.3-36.8) Seconds Sodium (137-145) mmol/L Potassium (3.4-5.0) mmol/L Chloride (98-107) mmol/L Carbon Dioxide (22-30) mmol/L Anion Gap (4-12) mmol/L BUN (9-20) mg/dL Creatinine (0.7-1.3) mg/dL Estim Creat Clear Calc Estimated GFR (59 - ) Glucose (65-110) mg/dL POC Capillary Glucose 73 (65-105) mg/dl Lactic Acid (0.7-2.0) mmol/L Calcium (8.4-10.2) mg/dL Phosphorus (2.5-4.5) mg/dL Magnesium (1.6-2.3) mg/dL Total Bilirubin (0.2-1.3) mg/dL AST (17-59) U/L ALT (6-50) U/L Alkaline Phosphatase (38-126) U/L Troponin I (0.000-0.034) ng/mL NT-Pro-B Natriuret Pep (19.9-100) pg/mL Total Protein (6.3-8.2) g/dL Albumin (3.5-5.1) g/dL Lipase (23-300) U/L TSH (Reflex) (0.465-4.68) uIU/mL Free T4 Urine Color Yellow (Yellow) Urine Appearance Turbid H (Clear) Urine pH 5.0 (5.0-9.0) Ur Specific [place] 1.025 (1.001-1.035) Urine Protein 3+ H (Negative) mg/dL Urine Glucose (UA) 2+ H (Negative) mg/dL Urine Ketones Trace H (Negative) mg/dL Ur Blood (Man) Trace (Negative) Urine Nitrate Negative (Negative) Urine Bilirubin Negative (Negative) Urine Urobilinogen 0.2 (<2.0) mg/dL Leukocyte Esterase Rfl Negative (Negative) MADDIE/UL Urine RBC 0-2 (0-2) /hpf Urine WBC 0-5 (0-3) /hpf Ur Squamous Epith Cells Many H (Few) /hpf Urine Bacteria None seen /hpf Urine Casts >20 Influenza A (RT-PCR) (Negative) Influenza B (RT-PCR) (Negative) RSV (RT-PCR) (Negative) SARS-CoV-2 RNA (RT-PCR) (Negative) ABG Data ABG results: 02/02/25 01:03 VBG pH 7.306 VBG pCO2 38.0 L VBG pO2 54.1 H VBG HCO3 18.5 L O2 Delivery Device Room air O2 Liters/Min Not Reportable FiO2 21 Critical Care Time Critical Care Time Critical Care Time: Yes Total Critical Care Time: 75 Discharge Plan Discharge Clinical Impression: Hypoglycemia, Cardiogenic shock, PNA (pneumonia), Acute kidney failure Patient Disposition: Acute Care Hospital Condition: Critical Patient Language: Bengali Prescriptions: No Action omega-3 fatty acids [Fish Oil Concentrate] 1,000 mg capsule 1,000 mg PO DAILY aspirin [Adult Aspirin Regimen] 81 mg tablet,delayed release (DR/EC) 81 mg PO QPM (DME) cpap See Rx Instructions .Route .MEDSUPPLY Qty: 1 0RF Rx Instructions: AutoPAP with 5-15cm of water with a heated humidifier for added comfort, tubing, filters and large ResMed Airfit F10 series mask . length of Treatment 99+ months NPI number [id number] tamsulosin 0.4 mg capsule 0.4 mg PO QHS Qty: 90 1RF (DME) pen needle, diabetic 32 gauge x 5/32 needle See Rx Instructions .ROUTE .COMPLEX Qty: 100 1RF Dose Instruction: USE 3 TIMES DAILY WITH INSULIN INJECTIONS Rx Instructions: USE 3 TIMES DAILY WITH INSULIN INJECTIONS (DME) OneTouch Ultra Test Strip See Rx Instructions .ROUTE .COMPLEX Qty: 300 1RF Dose Instruction: USE A NEW STRIP EACH TIME IN METER TO CHECK BLOOD SUGARS 3 TIMES DAILY Rx Instructions: USE A NEW STRIP EACH TIME IN METER TO CHECK BLOOD SUGARS 3 TIMES DAILY benzonatate 200 mg capsule 200 mg PO TID PRN (Reason: cough) cyanocobalamin (vitamin B-12) 1,000 mcg capsule 1,000 mcg PO DAILY PRN (Reason: supplement) docusate sodium 100 mg capsule 100 mg PO BID insulin glargine [Lantus U-100 Insulin] 100 unit/mL solution 52 unit subcut QPM multivitamin Tablet 1 tablet PO DAILY polyethylene glycol 3350 [Miralax] 17 gram powder in packet 17 g PO BID potassium chloride [K-Tab] 20 mEq tablet extended release 20 meq PO BID sennosides [Senna Lax] 8.6 mg tablet 8.6 mg PO BID magnesium oxide 400 mg magnesium capsule 400 mg PO DAILY miconazole nitrate [Antifungal (miconazole)] 2 % cream 1 applic topical BID acetaminophen 500 mg Tablet 1,000 mg PO BID Qty: 0 0RF gabapentin 100 mg Capsule 100 mg PO BID Qty: 60 0RF quetiapine [Seroquel] 25 mg tablet 25 mg PO HS Qty: 30 0RF furosemide [Lasix] 40 mg tablet 80 mg PO BID Qty: 60 0RF amiodarone 200 mg tablet 400 mg PO DAILY Qty: 30 0RF metoprolol succinate [Toprol XL] 100 mg tablet extended release 24 hr 100 mg PO BID Qty: 60 0RF amlodipine 10 mg tablet 10 mg PO DAILY Qty: 30 0RF metformin 1,000 mg tablet 1,000 mg PO DAILY Qty: 30 0RF lidocaine 5 % adhesive patch,medicated 1 patch topical DAILY Qty: 30 0RF Rx Instructions: leave on most painful area for up to 12 hrs ramelteon [Rozerem] 8 mg tablet 8 mg PO HS Qty: 30 0RF linagliptin 5 mg tablet 2.5 mg PO QAM Qty: 30 0RF Eliquis 5 mg tablet 5 mg PO BID Qty: 60 0RF Jardiance 25 mg tablet 12.5 mg PO DAILY Qty: 30 0RF Follow-up/Referrals: Anthony Hogan DO [Primary Care Provider, Internal Medicine]
[2025-02-02] MEDS: SODIUM CHLORIDE 0.9% IV 1,000 ML 999 ML IV CONT (01:06)
--- OUTSIDE RECORDS SUMMARY | 2025-02-02 01:10 | XMS_ITS | Clinical Summary ---
Author Organization [facility] [place] [address] Address [address] [place] [address] Care Team Providers Care Client Customer Manager Name Role Phone Anthony Hogan DO Primary Care Provider [phone] Liam Norris MD Unavailable [phone] Meño Chandra MD Unavailable [phone] Miscellaneous, Not In File Unavailable Unava ilable Allergies No known active allergies Medications aspirin 81 mg enteric coated tablet Take 1 tablet (81 mg total) by mouth nightly Active tamsulosin (FLOMAX) 0.4 mg extended release capsule Take 1 capsule (0.4 mg total) by mouth nightly 09/03/19 24 Active glucosamine-cho ndroitin 500-400 mg tablet Take 1 tablet by mouth 3 (three) times a day as needed (SUPPLEMENT) Active cyanocobalamin, vitamin B-12, (VITAMIN B-12 ORAL) Take 1,000 mcg by mouth daily as needed (SUPPLEMENT) Active amLODIPine (NORVASC) 10 mg tablet Take 1 tablet (10 mg total) by mouth every morning Active omega-3 fatty acids 1,000 mg capsule Take 1 tablet by mouth every morning Active blood-glucose,r eceiver,cont (Dexcom G7 Area Counselor) misc Use as directed. 1 each 12/21/19 25 Active blood-glucose sensor (Dexcom G7 Sensor) device Use as directed. Change sensor every 10 days. 3 each 12/21/19 25 Active blood-glucose sensor (Dexcom G7 Sensor) device Use as directed. 1 each 12/21/19 25 Active benzonatate (TESSALON) 200 mg capsuleIndicati ons:Cough Take 1 capsule (200 mg total) by mouth 3 (three) times a day as needed for cough 12/28/19 25 Active docusate sodium (COLACE) 100 mg capsuleIndicati ons:constipatio n Take 1 capsule (100 mg total) by mouth 2 (two) times a day 12/28/19 25 Active furosemide (LASIX) 80 mg tablet Take 1 tablet (80 mg total) by mouth 2 (two) times a day 12/28/19 25 026 Active lidocaine (XYLOCAINE) 4 % (40 mg/mL) external solution Apply 1 mL (40 mg total) topically 2 (two) times a day as needed for pain (coccyx pain) 12/28/19 25 Active polyethylene glycol (MIRALAX) 17 gram packetIndicatio ns:constipation Take 1 packet (17 g total) by mouth 2 (two) times a day 12/28/19 25 Active QUEtiapine (SEROquel) 25 mg tablet Take 1 tablet (25 mg total) by mouth nightly 12/28/19 25 Active senna (SENOKOT) 8.6 mg tabletIndicatio ns:constipation Take 1 tablet by mouth 2 (two) times a day 12/28/19 25 026 Active ramelteon (ROZEREM) 8 mg tabletIndicatio ns:Sleep-Onset Insomnia Take 1 tablet (8 mg total) by mouth nightly 12/28/19 25 026 Active apixaban (ELIQUIS) 5 mg tabletIndicatio ns:atrial fibrillation Take 1 tablet (5 mg total) by mouth every 12 (twelve) hours 12/28/19 25 Active insulin glargine (LANTUS) 100 unit/mL (3 mL) pen for injection Inject 52 Units under the skin nightly 0 01/13/20 25 025 Active pen needle, diabetic (Pen Needle) 32 gauge x 5/32 needle Use as directed once a day. 01/13/20 25 Active insulin lispro (HumaLOG) 100 unit/mL pen for injectionIndica tions:type 2 diabetes mellitus Inject 32 Units under the skin 3 (three) times a day with meals (plus blood glucose mg/dL 150-199: 2 units, 200-249: 4 units, 250-299: 6 units, 300-349: 8 units, 350 or greater: 10 units. Notify provider for blood glucose greater than 299 mg/dL. Max daily dose 140) Refer to After Visit Summary for Sliding Scale Insulin Instructions . 0 01/13/20 25 025 Active pen needle, diabetic 32 gauge x needle Use as directed 3 times a day. 01/13/20 Active metFORMIN (GLUCOPHAGE) 1,000 mg tablet Take 1 tablet (1,000 mg total) by mouth daily with breakfast 0 01/13/20 25 025 Active empagliflozin (Jardiance) 25 mg tabletIndicatio ns:type 2 diabetes mellitus Take 0.5 tablets (12.5 mg total) by mouth daily before breakfast 0 01/13/20 25 025 Active linaGLIPtin (Tradjenta) 5 mg tabletIndicatio ns:type 2 diabetes mellitus Take 0.5 tablets (2.5 mg total) by mouth daily 0 01/13/20 25 025 Active acetaminophen (TYLENOL) 325 mg tabletIndicatio ns:Pain Take 2 tablets (650 mg total) by mouth every 4 (four) hours as needed for pain 0 01/13/20 25 025 Active magnesium oxide (MAG-OX) 400 mg (241.3 mg elemental magnesium) tabletIndicatio ns:hypomagnesem ia Take 1 tablet (400 mg total) by mouth daily 01/14/20 25 026 Active metoprolol XL (TOPROL-XL) 100 mg 24 hr tablet Take 1 tablet (100 mg total) by mouth 2 (two) times a day 01/13/20 25 026 Active multivit ljkjlbnv-iygl-I A-calcium (THERA-M) 9 mg iron-400 mcg tablet Take 1 tablet by mouth daily 01/14/20 25 Active potassium chloride ER (KLOR-CON) 20 mEq CR tablet Take 1 tablet (20 mEq total) by mouth 2 (two) times a day 01/13/20 026 Active dextrose 15 gram/32 mL gel in packetIndicatio ns:hypoglycemic disorder Take 32 mL (15 g total) by mouth every 15 (fifteen) minutes as needed (blood glucose less than 70 mg/dL) 01/13/20 Active guaiFENesin (ROBITUSSIN) syrup 100 mg/5 mL Take 20 mL (400 mg total) by mouth 4 (four) times a day as needed for cough 01/13/20 Active miconazole (SECURA THICK) 2 % cream Apply topically 2 (two) times a day 01/13/20 Active ezetimibe (ZETIA) 10 mg tablet Take 1 tablet (10 mg total) by mouth every morning 01/13/20 026 Active rosuvastatin (CRESTOR) 40 mg tabletIndicatio ns:coronary artery disease,hyperli pidemia Take 1 tablet (40 mg total) by mouth every morning 01/13/20 25 026 Active amiodarone (PACERONE) 400 mg tabletIndicatio ns:Prevention of A. Fib Post Cardio-Thoracic Surgery,Prevent ion of Recurrent Atrial Fibrillation Take 1 tablet (400 mg total) by mouth daily 01/21/20 25 Active amiodarone (PACERONE) 400 mg tabletIndicatio ns:Prevention of A. Fib Post Cardio-Thoracic Surgery,Prevent ion of Recurrent Atrial Fibrillation Take 1 tablet (400 mg total) by mouth 2 (two) times a day for 7 days 01/13/20 Active lidocaine (LIDODERM) 5 % Place 1 patch on the skin daily for 12 hours Remove & discard patch within 12 hours or as directed by MD. 0 01/13/20 25 025 Active gabapentin (NEURONTIN) 100 mg capsule Take 1 capsule (100 mg total) by mouth 01/21/20 25 Active multivitamin capsule Take 1 capsule by mouth every morning 025 Discontinued(St op Taking at Discharge) rosuvastatin (CRESTOR) 40 mg tabletIndicatio ns:Hyperlipidem ia associated with type 2 diabetes mellitus (HCC),History of TIA (transient ischemic attack) Take 1 tablet (40 mg total) by mouth daily 90 tablet 3 08/26/19 25 025 Discontinued(St op Taking at Discharge) ezetimibe (ZETIA) 10 mg tablet Take 1 tablet (10 mg total) by mouth every morning 09/14/19 025 Discontinued(St op Taking at Discharge) apixaban (ELIQUIS) 5 mg tabletIndicatio ns:atrial fibrillation Take 1 tablet (5 mg total) by mouth 2 (two) times a day 60 tablet 12/23/19 025 Discontinued(St op Taking at Discharge) insulin glargine (LANTUS, SEMGLEE) 100 unit/mL vial for injectionIndica tions:Diabetes Mellitus Inject 38 Units under the skin nightly 10 mL 12/28/19 25 025 Discontinued(St op Taking at Discharge) amiodarone (PACERONE) 400 mg tablet Take 1 tablet (400 mg total) by mouth daily 30 tablet 11 12/29/19 025 Discontinued(St op Taking at Discharge) insulin lispro (HumaLOG, ADMELOG) 100 unit/mL pen for injection Inject 2-10 units under the skin 3 (three) times a day with meals. Blood glucose mg/dL 150-199: 2 units, 200-249: 4 units, 250-299: 6 units, 300-349: 8 units, 350 or greater: 10 units. Notify provider for blood glucose greater than 299 mg/dL. Refer to After Visit Summary for Sliding Scale Insulin Instructions . 12/28/19 025 Discontinued(St op Taking at Discharge) insulin lispro (HumaLOG, ADMELOG) 100 unit/mL pen for injection Inject 15 Units under the skin 3 (three) times a day with meals 12/28/19 25 025 Discontinued(St op Taking at Discharge) acetaminophen 500 mg capsule Take 2 capsules (1,000 mg total) by mouth every 6 (six) hours 12/28/19 25 025 Discontinued(St op Taking at Discharge) methocarbamoL (ROBAXIN) 500 mg tablet Take 1 tablet (500 mg total) by mouth 3 (three) times a day 12/28/19 25 025 Discontinued(St op Taking at Discharge) metoprolol (LOPRESSOR) 100 mg tablet Take 1 tablet (100 mg total) by mouth 2 (two) times a day 12/28/19 25 025 Discontinued(St op Taking at Discharge) potassium chloride ER (KLOR-CON) 20 mEq CR tablet Take 2 tablets (40 mEq total) by mouth 2 (two) times a day 12/29/19 025 Discontinued(St op Taking at Discharge) morphine 0.125% Apply 8 mL (10 mg total) topically 3 (three) times a day as needed (as needed for pain) 12/28/19 25 025 Discontinued(St op Taking at Discharge) oxyCODONE (ROXICODONE) 5 mg immediate release tabletIndicatio ns:Pain Take 1 tablet (5 mg total) by mouth every 8 (eight) hours as needed for pain 12/28/19 025 Discontinued(St op Taking at Discharge) amiodarone (PACERONE) 400 mg tablet Take 1 tablet (400 mg total) by mouth 2 (two) times a day 01/13/20 025 Discontinued morphine 0.125% Apply 8 mL (10 mg total) topically 3 (three) times a day 01/13/20 025 Discontinued(St op Taking at Discharge) Active Problems Problem Noted Date Diagnosed Date Severe malnutrition 01/04/2025 Atrial fibrillation 01/02/2025 Assessment & Plan (01/11/2025 12:10 PM CDT): Pt readmitted with AF on 01/02 via the ED S/P CABG x 2 with AVR (bio) on 12/01/24 Started on amiodarone bolus and gtt, now on amio BID Monitor daily EKG, QTC Monitor on continuous telemetry Continue metoprolol XL 100 BID On Eliquis TTE 01/04: EF 61%, Grade I DD, nml RV, AV with physiologic gradient Amio dosing for discharge: 400 BID x7 days, then [address] 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 Assessment & Plan (12/23/2024 1:59 PM CDT): -Seen by wound/ostomy -Triad to B-sure pad to the area -Local analgesia -Low air loss matress Type 2 diabetes mellitus 12/20/2024 Assessment & Plan (01/11/2025 3:50 PM CDT): Was followed by Georg[facility] during his last admission Endocrinology continuing to follow, appreciate recs for discharge: Basal Insulin: - increase degludec from 48 units to 52 units qHS Mealtime/Bolus Insulin: - increase lispro from 28 units to 32 units TID Correctional/Sliding-Scale Insulin: - resistant correctional lispro TID AC, HS - POC glucoses TID AC, HS, 2AM when eating - Consistent carb diet when eating; no juices, no regular soda Carb consistent diet Assessment & Plan (12/21/2024 12:44 PM CDT): A1c 7.4% on admission Endocrinology following, appreciate recs: - glargine 38 units every day - lispro 13 units TID AC - correctional lispro insulin 2:50>150 mg/dl TID - POC glucoses TID AC, HS, 2AM when eating - Consistent carb diet when eating; no juices, no regular soda Diabetes nurse educator to meet with patient before discharge Monk checked CGM's (Dexcom G6/G7 and FreeStyle Simón 2/3) - mobile pharmacy will fill G7 for no charge Acute kidney injury superimposed on chronic kidn ey disease 12/20/2024 Assessment & Plan (01/11/2025 12:09 PM CDT): Creatinine with post CABG/AVR - creat around 1.6 - 2.5 Monitor daily BMP Will continue to monitor closely Continue Lasix 80mg PO BID Monitor daily weights Strict I&O Assessment & Plan (12/26/2024 5:17 PM CDT): Baseline Cr 1.1-1.3. Now up to 2.29 - Avoid nephrotoxins, renally dose meds as appropriate - Avoid hypotension - Initiated diuresis with IV lasix BID>>7/31 Cr increasing, decreased to qday. - spironolactone on hold - Daily weights, I/Os - Monitor daily renal panel Assessment & Plan (12/22/2024 6:41 PM CDT): Baseline Cr 1.1-1.3. Now up to 1.95>>2.54 - Avoid nephrotoxins, renally dose meds as appropriate - Avoid hypotension - Initiating diuresis with IV lasix BID>>12/22 Cr increasing, decreased to qday - spironolactone on hold - Daily weights, I/Os - Monitor daily renal panel S/P CABG (coronary artery bypass graft) 12/02/19 25 Assessment & Plan (01/11/2025 12:08 PM CDT): See Bio AVR problem above Continue ASA and Metoprolol Holding Statin due to elevated LFTs, continue to monitor hepatic function panel daily Assessment & Plan (12/23/2024 1:57 PM CDT): 12/01 CABG x 2 (MENCHACA to LAD, SVG to OM1), AVR (25 mm bioprosthetic) with non- coronary sinus annular enlargement Intra-op CITLALY: Normal biventricular function, severe LVH No CTs EPW removed 12/20 Continue to monitor on telemetry; AV paced 60s Continue ASA, statin Continue metoprolol at 100 mg BID - titrate as needed Started diuresis with 60 IV lasix BID Holding spironolactone in the setting of TANA and hyperkalemia Advanced to consistent carb diet Dvt ppx with subq heparin restarted 48 hrs s/p PPM Encourage pulmonary hygiene, IS (patient currently on room air) Continue current bowel regimen Perioperative abx completed Maintain adequate pain management: tylenol PRN, oxycodone PRN, topical morphine Follow up re: anticoagulation plan for Afib following PPM placement -Eliquis started 12/23 PT/OT treat and eval: recommending inpatient rehab, [facility] following>>CM sent referrals, accepted by facility awaiting authorization Daily weights, I/Os Replete electrolytes to maintain K>4, Mag>2 Daily CBC, BMP Assessment & Plan (12/22/2024 6:43 PM CDT): 12/01 CABG x 2 (MENCHACA to LAD, SVG to OM1), AVR (25 mm bioprosthetic) with non- coronary sinus annular enlargement Intra-op CITLALY: Normal biventricular function, severe LVH No CTs EPW removed 12/20 Continue to monitor on telemetry; AV paced 60s Continue ASA, statin Continue beta frandy at 100 mg BID - titrate as needed Started diuresis with 60 IV lasix BID Holding spironolactone in the setting of TANA and hyperkalemia Advanced to consistent carb diet Dvt ppx with subq heparin restarted 48 hrs s/p PPM Encourage pulmonary hygiene, IS (patient currently on room air) Continue current bowel regimen Perioperative abx completed Maintain adequate pain management: tylenol PRN, oxycodone PRN, topical morphine Follow up re: anticoagulation plan for Afib following PPM placement --Start Eliquis in am PT/OT treat and eval: recommending inpatient rehab, [facility] following>>CM sent referrals Daily weights, I/Os Replete electrolytes to maintain K>4, Mag>2 Daily CBC, BMP Severe aortic stenosis 11/15/2024 Assessment & Plan (01/11/2025 12:08 PM CDT): See AF problem Now post op from Bio AVR on 12/01/24 Continue ASA, Metop XL 100 BID Crestor and zetia on hold for elevated LFTs PT recs rehab OT recs rehab Planned for return to rehab facility, but P2P denied - approved for inpatient SNF, but patient refuses Patient and family appealed rehab, waiting on approval Assessment & Plan (12/20/2024 12:22 PM CDT): See s/p CABG problem Sinus node dysfunction 11/15/2024 Assessment & Plan (12/21/2024 12:42 PM CDT): Per ICU notes, EP was consulted for higher pacing burden, frequent pauses, and bradycardia requiring backup pacer S/p PPM placement 12/19 Settings: DDD 60-130 CXR 12/20: Two-lead pacemaker projects over left hemithorax. Median sternotomy plate and screw constructs project over thoracic midline. Prosthetic aortic valve. Device interrogation and AM EKG done EPW removed 12/20 Continue metoprolol 100 mg BID Monitor on telemetry; currently AV paced 60s Severe obesity 08/25/2024 Assessment & Plan (01/11/2025 12:07 PM CDT): Current BMI 39.20 Bariatric equipment as needed Hypertriglyceridemia 10/04/2019 KIMBALL (dyspnea on exertion) 07/13/2019 History of TIA (transient ischemic attack) 07/13 Body mass index (BMI) 45.0-49.9, adult 0 Obstructive sleep apnea 07/13/2019 Assessment & Plan (01/09/2025 3:53 PM CDT): Pt wearing his home CPAP machine ALEJANDRA precautions Hyperlipidemia associated with type 2 diabetes m ellitus 07/13/2019 Hypertension associated with diabetes 07/13/2019 Bilateral lower extremity edema 07/13/2019 Resolved Problems Problem Noted Date Diagnosed Date Resolved Date Pleural effusion 12/20/2024 01/04/2025 Assessment & Plan (12/26/2024 5:17 PM CDT): 12/20 CXR: Small lung volumes. Redistributed right pleural effusion with posteriorly-layering component, which appears on lateral radiograph to be moderate to large in volume. There is a small left pleural effusion. There is no pneumothorax. Cardiomediastinal silhouette is unchanged from previous examination. Consulted IP: patient had -760 mLs serosanguinous fluid removed via R thoracentesis Will transition to PO lasix in anticipation of discharge to facility. On room air, receiving CPAP at night for obstructive sleep apnea -12/22 noted worsening cough this evening>>ordered CXR in am ; 12/23 states cough resolved Encourage pulmonary hygiene, IS Assessment & Plan (12/22/2024 6:44 PM CDT): 12/20 CXR: Small lung volumes. Redistributed right pleural effusion with posteriorly-layering component, which appears on lateral radiograph to be moderate to large in volume. There is a small left pleural effusion. There is no pneumothorax. Cardiomediastinal silhouette is unchanged from previous examination. Consulted IP: patient had -760 mLs serosanguinous fluid removed via R thoracentesis Initiated diuresis with 60 IV lasix BID today>>cr bumped, will decrease to daily On room air, receiving CPAP at night for obstructive sleep apnea -12/22 noted worsening cough this evening>>ordered CXR in am Encourage pulmonary hygiene, IS Atrial fibrillation with RVR 12/10/2024 01/04/2025 Assessment & Plan (12/22/2024 6:27 PM CDT): ICU course notable for multiple episodes of afib rvr which were treated with amiodarone and beta frandy PPM placed 12/19 (settings DDD 60-130) Monitor on continuous telemetry; AV paced 60s but still with occasional Afib RVR overnight Continue amiodarone 400 mg TID (on day 3 of load) Continue metoprolol dosing to 100 mg BID AC plan to start eliquis at discharge >> cost is $150/mo but pt is willing to pay Paroxysmal atrial fibrillati on with conversion pauses 11/15/2024 01/04/2025 Assessment & Plan (12/23/2024 7:27 AM CDT): See Afib with RVR problem Assessment & Plan (12/20/2024 12:07 PM CDT): See Afib with RVR problem Chest pain 10/04/2024 01/04/2025 Morbid (severe) obesity due to excess calories 04/16/2022 01/04/2025 Nonrheumatic aortic valve stenosis 07/13/2019 01/04/2025 Encounters Date Type Department Care Team Description 01/31/2025 1:48 PM CDT - 01/31/2025 11:59 PM CDT Hospital Encounter [facility] Cardiac Diagnostic Lab [address] [facility] 8th [place] [phone] S/P CABG (coronary artery bypass graft); S/P AVR (aortic valve replacement) Discharge Disposition: Discharge to home or self care 01/31/2025 11:45 AM CDT Office Visit [facility] Medicine Cardiothoracic Surgery [address] [facility] 8th Floor [address] [place] [address] Meño Chandra MD Coronary artery disease involving [place] coronary artery of tu[place]ne heart without angina pectoris (Primary Dx) 01/31/2025 9:24 AM CDT - 01/31/2025 11:59 PM CDT Hospital Encounter [facility] [address] [place] [address] Meño Chandra MD S/P CABG (coronary artery bypass graft); S/P AVR (aortic valve replacement) Discharge Disposition: Discharge to home or self care 01/16/2025 Telephone [facility] Cardiology [address] [place] [phone] Nevaeh Salinas MA 01/13/2025 Telephone [facility] [address] [place] [address] [place] [address] Arthur Mcleod MD 01/02/2025 2:02 PM CDT - 01/12/2025 4:11 PM CDT Hospital Encounter [facility] [address] [facility] [place] [address] Barbra Lopez MD Jotte, Randall Stephen, MD Brescia, Alexander Angelo, MD Atrial fibrillation with rapid ventricular response (HCC) (Primary Dx); Chest pain, unspecified type; Hypotension, unspecified hypotension type; S/P CABG (coronary artery bypass graft) Discharge Disposition: Discharge to an Rehab facility 01/02/2025 [facility]phone [facility] [address] Room [address] [address] Meño Chandra MD 12/30/2024 Telephone [facility] 8th [place] [address] [place] [address] Arthur Mcleod MD 12/27/2024 Orders Only [facility] 8th Floor [address] Room [address] [place] [phone] Meño Chandra MD S/P CABG (coronary artery bypass graft) (Primary Dx); S/P AVR (aortic valve replacement) 12/19/2024 8:30 AM CDT Anesthesia Event [facility] Electrophysiology Lab 1 [place] [address] Meño Porras MD Silver, Kate Elizabeth, CRNA 12/19/2024 8:30 AM CDT - 12/19/2024 11:30 AM CDT Surgery [facility] Electrophysiology Lab 1 [place] [address] Arthur Mcleod MD IMPLANT DUAL CHAMBER PPM SYSTEM W/ DUAL ELECTRODES (GEN AND LEADS, NEW OR REPLACE) [id number] 12/12/2024 Orders Only [facility] 8th [place] [address] [place] [phone] Giovanna Holguin NP Fitting or adjustment of cardiac pacemaker (Primary Dx) 12/01/2024 3:52 PM CDT Anesthesia Event [facility] Operating Room 1 [place] [phone] Ashu Fernandes MD PhD Melissa Funez DO 12/01/2024 3:10 PM CDT Ancillary Procedure [facility] Operating Room 1 [place] [address] 12/01/2024 2:05 PM CDT - 12/01/2024 11:00 PM CDT Surgery [facility] Operating Room 1 [place] [address] Meño Chandra MD CORONARY ARTERY BYPASS GRAFT WITH PUMP X 2 (MENCHACA-LAD AND SVG-OM1) 12/01/2024 11:55 AM CDT - 12/27/2024 2:40 PM CDT Hospital [address] [address] Meño Chandra MD Paroxysmal atrial fibrillation with conversion pauses (HCC) (Primary Dx); Severe aortic stenosis; Atrial fibrillation with RVR (HCC); S/P CABG (coronary artery bypass graft); Sinus node dysfunction (HCC) Discharge Disposition: Discharge to an Rehab facility 11/22/2024 2:00 PM CDT Pre-Admission Testing [facility] for Preoperative Assessment and [facility] [address] [place] [id number] Preoperative testing (Primary Dx) 11/17/2024 Orders Only [facility] Medicine Cardiothoracic Surgery [address] [facility] Medicine 8th Floor [address] [place] [address] Meño Chandra MD 11/15/2024 8:30 AM CDT - 11/15/2024 9:55 AM CDT Surgery [facility] [address] [place] [phone] Rocky Bruno MD LEFT HEART CATHETERIZATION WITH CORONARY ANGIOGRAPHY AND WITH OR WITHOUT LEFT VENTRICULOGRAM [id number] 11/15/2024 7:12 AM CDT - 11/15/2024 1:56 PM CDT Hospital Encounter [facility] [address] [place] [phone] Rocky Bruno MD Nonrheumatic aortic valve stenosis; Chest pain, unspecified type Discharge Disposition: Discharge to home or self care 11/15/2024 Results [place] [address] [place] [address] Medical Office Building [address] [place] [address] Jayesh Freedman MD ECG 12 lead 11/14/2024 Telephone [facility] [address] [place] [address] 8th [place] [address] [place] [address] Rocky Bruno MD 11/08/2024 3:25 PM CDT Lab [facility] [address] [place] [address] Nonrheumatic aortic valve stenosis; History of heart valve abnormality; Abnormal finding of blood chemistry, unspecified 11/08/2024 1:45 PM CDT Office Visit [facility] Medicine Surgery [address] [place] [address] [address] [place] [address] Nonrheumatic aortic valve stenosis (Primary Dx); History of heart valve abnormality; Abnormal finding of blood chemistry, unspecified 11/08/2024 1:45 PM CDT Office Visit [facility] Medicine Cardiology [address] [facility] Medical Office Building [address] [place] [address] Jayesh Freedman MD Hyperlipidemia associated with type 2 diabetes mellitus (HCC) (Primary Dx); KIMBALL (dyspnea on exertion); Nonrheumatic aortic valve stenosis; Chest pain, unspecified type 11/08/2024 10:29 AM CDT - 11/08/2024 11:59 PM CDT Hospital Encounter [facility] [address] [address] [address] Jayesh rFeedman MD Nonrheumatic aortic valve stenosis Discharge Disposition: Discharge to home or self care from Last 3 Months Surgical History Surgery Date Site/Laterality Comments COLONOSCOPY CARDIAC CATHETERIZATION 11/15/2024 N/A Procedure: LEFT HEART CATHETERIZATION WITH CORONARY ANGIOGRAPHY AND WITH OR WITHOUT LEFT VENTRICULOGRAM 37034; Surgeon: Rocky Bruno MD; Location: [facility]; Service: Cardiovascular; Laterality: N/A; CARDIAC CATHETERIZATION 11/15/2024 N/A Procedure: Coronary Flow Velocity (CFR) / Instantaneous Flow Velocity (IFR), 1st Vessel; Surgeon: Rocky Bruno MD; Location: [facility]; Service: Cardiovascular; Laterality: N/A; CARDIAC CATHETERIZATION 11/15/2024 N/A Procedure: Coronary Flow Velocity (CFR) / Instantaneous Flow Velocity (IFR), Ea Addtn'l Vessel; Surgeon: Rocky Bruno MD; Location: [facility]ENT; Service: Cardiovascular; Laterality: N/A; CARDIAC ELECTROPHYSIOLOGY PROCEDURE 12/19/2024 N/A Procedure: IMPLANT DUAL CHAMBER PPM SYSTEM W/ DUAL ELECTRODES (GEN AND LEADS, NEW OR REPLACE) 35540; Surgeon: Arthur Mcleod MD; Location: [facility] EP [facility]; Service: Cardiovascular; Laterality: N/A; Medical devices from this surgery are in the Medical Devices section. Medical History Medical History Date Comments Hyperlipidemia Diabetes mellitus (HCC) Hypertension Sleep apnea Arthritis Pleural effusion 12/20/2024 Paroxysmal atrial fibrillation with conversion p auses (HCC) 11/15/2024 Nonrheumatic aortic valve stenosis 07/13/2019 Morbid (severe) obesity due to excess calories ( [facility]) 04/16/2022 Family History Medical History Relation Name Comments Diabetes Brother 3 Kidney disease Brother 3 Heart disease Father Diabetes Mother Heart disease Mother Kidney disease Mother Appendicitis Sister Anesthesia problems Neg Hx Relation Name Status Comments Brother 1 Alive Brother 2 Alive Brother 3 Alive Father (Age 86) Mother (Age 84) Sister (Age 6) Ruptured ap pendix Social History Tobacco Use Types Packs/Day Years Used Date Smoking Tobacco: Some Days Cigars Passive Smoke Exposure: Past Smokeless Tobacco: Never Tobacco Cessation:Ready to Q uit: Not Asked; Counseling Given: Not Answered Comments:Cigars- (1) 3 times weekly Alcohol Use [...] 12/21/2024 How often do you attend chur or protestant services? Never 12/21/2024 Do you belong to any clubs o r organizations such as christian groups, unions, fraternal or athletic groups, or [...] any time in the past 12 m [facility], were you homeless or living in a chcf (including now)? No 12/21/2024 Social Connection and Isolation Panel Answer Date Recorded In a typical week, how many times do you talk on the phone with family, friends, or neighbors? More than three times a week 01/04/2025 How often do you get togethe r with friends or relatives? More than three times a week 01/04/2025 How often do you attend chur ch or protestant services? Never 01/04/2025 Do you belong to any clubs o r organizations such as christian groups, unions, fraternal or athletic groups, or [...] any time in the past 12 m [facility], were you homeless or living in a chcf (including now)? 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 Gender Identity Not on file Sexual Orientation Not on file Obstetrics History Last Filed Vital Signs Vital Sign Reading Time Taken Comments Blood Pressure 115/59 01/31/2025 10:31 AM CDT Pulse 57 01/31/2025 10:31 AM CDT Temperature 36.7 C (98.1 F) 01/12/2025 11:07 AM CDT Respiratory Rate 18 01/12/2025 11:0 7 AM CDT Oxygen Saturation 95% 01/31/2025 10: 31 AM CDT Inhaled Oxygen Concentration - - Weight 128.7 kg (283 lb 12.8 oz) 2024 10:31 AM CDT Height 177.8 cm (5' 10) 01/31/2025 10: 31 AM CDT Body Mass Index 40.72 01/31/2025 10:31 AM CDT Plan of Treatment Health Maintenance Due Date Last Done Comments Albumin Creatinine Ratio, Urine 1945 Hepatitis C Screening 1945 Dilated Eye Exam 1945 Foot Exam 1945 Hepatitis B Screening 07/26/1965 DTaP/Tdap/Td Vaccine (1 - Tdap) 08/26/2004 5 Abdominal Aortic Aneurysm (A AA) Screen 07/26/2012 Well Visit 65+ 07/26/2012 Influenza Vaccine (#1) 2025 , 02/27/2020, 03/11/2019, Additional history exists Hemoglobin A1C 07/06/2025 01/03/2025, 11/08/2024 Lipid Panel 12/02/2025 12/02/2024, 04/0 07/2024, 11/10/2023, Additional history exists Depression Screening 01/02/2026 01/02/2025, 11/16/19 25 eGFR 01/09/2026 01/09/2025, 12/23, 01/08/2025, Additional history exists Fall Risk Assessment 01/12/2026 01/12/2025 Pneumococcal vaccine 65+ Completed 017, 03/08/2015, 03/07/2015, Additional history exists Zoster Vaccine Completed 06/24/2021, 03/25, 11/08/2013 Medical Devices Implanted Type Area Health Care Technician Device Identifier Shelf Expiration Date Model / Serial / Lot Medtronic Inc Capsurefix Novus 6.2fr 2mm 52cm Bipolar Screw In Implantable Latex Free 5076-52 - [id number] - [id number] Implanted:Qty: 1 on 12/19/2024 by Arthur Mcleod MD at [facility] Lead Right: Atria Medtronic Inc 09/15/2026 5076-52 / [id number] 32V / Medtronic Inc Capsurefix Novus 6.2fr 2mm 58cm Bipolar Screw In Implantable 5076-58 - [id number] - [id number] Implanted:Qty: 1 on 12/19/2024 by Arthur Mcleod MD at [facility] Lead Right: Ventricle Medtronic Inc 08/17/2026 5076-58 / [id number] 82V / Medtronic Inc Tyrx Absorbable Antibacterial Envelope Med 2.7x2.5in [id number] - [id number] - [id number] Implanted:Qty: 1 on 12/19/2024 by Arthur Mcleod MD at [facility] Mesh Right: Ventricle Medtronic Inc 08/14/2025 [id number] / [id number] / [id number] Medtronic Inc Lacey S Mri Surescan 50.8x46.6mm 2 Chamber 7.4mm Pacemaker 22.5gm [id number] - [id number] - [id number] Implanted:Qty: 1 on 12/19/2024 by Arthur Mcleod MD at [facility] Pacemaker Right: Ventricle Medtronic Inc 03/07/2026 [id number] / [id number] / Domit[employer] Plate Bone Low Profile 6 Hole H Shape Sternum Ti 115.102.06 - [id number] Implanted:Qty: 2 on 12/01/2024 by Berry Morrissey MD at [facility] Plate N/A: Sternum [employer] 115.102 .06 / / [employer] Plate Bone Low Profile 6 Hole O Shape Sternum Ti 115.104.06 - [id number] Implanted:Qty: 1 on 12/01/2024 by Meño Chandra MD at [facility] Plate N/A: Sternum [employer] 115.104 .06 / / [employer]it[employer] Screw Bone Slf Drl Full Thread Locking 3.5x18mm Ti 100.035.18 - [id number] Implanted:Qty: 10 on 12/01/2024 by Berry Morrissey MD at [facility] Screw N/A: Sternum [employer] 100.035 .18 / / [employer] Screw Bone Slf Drl Full Thread Locking 3.5x20mm Ti 100.035.20 - [id number] Implanted:Qty: 8 on 12/01/2024 by Berry Morrissey MD at [facility] Screw N/A: Sternum [employer] 100.035 .20 / / Get[employer] [place] Inc Patch Collagen Coated Double Velour Hemashield Gold [id number] Woven Polyester [id number] - [id number] - [id number] Implanted:Qty: 1 on 12/01/2024 by Meño Chandra MD at [facility] Heart [employer] [id number] 03/24/2029 [id number] / [id number] / 24L20 [employer] Magna Ease 25mm [id number] - [id number] - [id number] Implanted:Qty: 1 on 12/01/2024 by Meño Chandra MD at [facility] N/A: Heart [employer] [id number] 12/15/2027 [id number] 25MM / [id number] / Ar[employer] Inc Device Closure Fibertape Sternal Cerclage Blunt Needle Ar-[id number] - [id number] Implanted:Qty: 3 on 12/01/2024 by Meño Chandra MD at [facility] N/A: Heart [employer] Inc [id number] 10/22/2029 AR-7289 / / [id number] Procedures Procedure Name Priority Date/Time Associated Diagnosis Comments TRANSTHORACIC ECHO (TTE) COMPLETE W DOPPLER/CF W CONTRAST Routine 01/31/2025 3:30 PM CDT S/P CABG (coronary artery bypass graft) S/P AVR (aortic valve replacement) CTA CHEST W CONTRAST Schedule Routine, Read Routine (OP Routine) 01/31/2025 10:11 AM CDT S/P CABG (coronary artery bypass graft) S/P AVR (aortic valve replacement) POCT GLUCOSE DEVICE Routine 01/12/2025 11:43 AM CDT POCT GLUCOSE DEVICE Routine 01/12/2025 8 :24 AM CDT POCT GLUCOSE DEVICE Routine 01/11/2025 7 :58 PM CDT POCT GLUCOSE DEVICE Routine 01/11/2025 5 :05 PM CDT POCT GLUCOSE DEVICE Routine 01/11/2025 12:05 PM CDT POCT GLUCOSE DEVICE Routine 01/11/2025 8 :02 AM CDT POCT GLUCOSE DEVICE Routine 01/10/2025 9 :13 PM CDT POCT GLUCOSE DEVICE Routine 01/10/2025 5 :36 PM CDT POCT GLUCOSE DEVICE Routine 01/10/2025 11:44 AM CDT POCT GLUCOSE DEVICE Routine 01/10/2025 7 :47 AM CDT ECG 12-LEAD Routine 01/10/2025 6:08 AM CDT ECG 12-LEAD Routine 01/10/2025 6:07 AM CDT ECG 12-LEAD Routine 01/10/2025 6:07 AM CDT ECG 12-LEAD Routine 01/10/2025 6:06 AM CDT POCT GLUCOSE DEVICE Routine 01/09/2025 8 :13 PM CDT POCT GLUCOSE DEVICE Routine 01/09/2025 4 :56 PM CDT POCT GLUCOSE DEVICE Routine 01/09/2025 11:47 AM CDT EGFR Routine 01/09/2025 9:07 AM CDT PHOSPHORUS Routine 01/09/2025 9:07 AM CDT MAGNESIUM Routine 01/09/2025 9:07 AM CDT CBC WITHOUT DIFFERENTIAL Routine 01/09/2025 9:07 AM CDT HEPATIC FUNCTION PANEL Routine 9:07 AM CDT BASIC METABOLIC PANEL Routine 01/09/2025 9:07 AM CDT POCT GLUCOSE DEVICE Routine 01/09/2025 7 :57 AM CDT ECG 12-LEAD Routine 01/09/2025 6:00 AM CDT POCT GLUCOSE DEVICE Routine 01/08/2025 8 :31 PM CDT POCT GLUCOSE DEVICE Routine 01/08/2025 5 :06 PM CDT POCT GLUCOSE DEVICE Routine 01/08/2025 12:20 PM CDT EGFR Timed 01/08/2025 11:38 AM CDT COMPREHENSIVE METABOLIC PANEL Timed 01/08/2025 11:38 AM CDT EGFR STAT 01/08/2025 9:09 AM CDT DIFFERENTIAL AUTO STAT 01/08/2025 9:0 9 AM CDT CBC WITH AUTO DIFFERENTIAL STAT 01/08/2025 9:09 AM CDT COMPREHENSIVE METABOLIC PANEL STAT 01/08/2025 9:09 AM CDT POCT GLUCOSE DEVICE Routine 01/08/2025 8 :17 AM CDT POCT GLUCOSE DEVICE Routine 01/07/2025 8 :06 PM CDT POCT GLUCOSE DEVICE Routine 01/07/2025 4 :51 PM CDT POCT GLUCOSE DEVICE Routine 01/07/2025 12:00 PM CDT ECG 12-LEAD Routine 01/07/2025 11:35 AM CDT POCT GLUCOSE DEVICE Routine 01/07/2025 8 :08 AM CDT POCT GLUCOSE DEVICE Routine 01/06/2025 8 :17 PM CDT POCT GLUCOSE DEVICE Routine 01/06/2025 4 :49 PM CDT POCT GLUCOSE DEVICE Routine 01/06/2025 11:42 AM CDT POCT GLUCOSE DEVICE Routine 01/06/2025 7 :29 AM CDT EGFR Routine 01/05/2025 9:16 PM CDT PHOSPHORUS Routine 01/05/2025 9:16 PM CDT MAGNESIUM Routine 01/05/2025 9:16 PM CDT CBC WITHOUT DIFFERENTIAL Routine 01/05/2025 9:16 PM CDT HEPATIC FUNCTION PANEL Routine 9:16 PM CDT BASIC METABOLIC PANEL Routine 01/05/2025 9:16 PM CDT POCT GLUCOSE DEVICE Routine 01/05/2025 8 :04 PM CDT POCT GLUCOSE DEVICE Routine 01/05/2025 4 :32 PM CDT EGFR Routine 01/05/2025 11:49 AM CDT BASIC METABOLIC PANEL Routine 01/05/2025 11:49 AM CDT POCT GLUCOSE DEVICE Routine 01/05/2025 11:27 AM CDT POCT GLUCOSE DEVICE Routine 01/05/2025 7 :37 AM CDT ECG 12-LEAD Routine 01/05/2025 7:04 AM CDT POCT GLUCOSE DEVICE Routine 01/04/2025 10:06 PM CDT EGFR Routine 01/04/2025 8:27 PM CDT PHOSPHORUS Routine 01/04/2025 8:27 PM CDT MAGNESIUM Routine 01/04/2025 8:27 PM CDT CBC WITHOUT DIFFERENTIAL Routine 01/04/2025 8:27 PM CDT HEPATIC FUNCTION PANEL Routine 8:27 PM CDT BASIC METABOLIC PANEL Routine 01/04/2025 8:27 PM CDT POCT GLUCOSE DEVICE Routine 01/04/2025 5 :27 PM CDT POCT GLUCOSE DEVICE Routine 01/04/2025 12:26 PM CDT TRANSTHORACIC ECHO (TTE) COMPLETE W DOPPLER/CF W CONTRAST Routine 01/04/2025 12:11 PM CDT POCT GLUCOSE DEVICE Routine 01/04/2025 7 :50 AM CDT EGFR Routine 01/03/2025 8:23 PM CDT PHOSPHORUS Routine 01/03/2025 8:23 PM CDT MAGNESIUM Routine 01/03/2025 8:23 PM CDT CBC WITHOUT DIFFERENTIAL Routine 01/03/2025 8:23 PM CDT HEPATIC FUNCTION PANEL Routine 8:23 PM CDT BASIC METABOLIC PANEL Routine 01/03/2025 8:23 PM CDT POCT GLUCOSE DEVICE Routine 01/03/2025 8 :10 PM CDT POCT GLUCOSE DEVICE Routine 01/03/2025 5 :06 PM CDT POCT GLUCOSE DEVICE Routine 01/03/2025 11:47 AM CDT POCT GLUCOSE DEVICE Routine 01/03/2025 8 :22 AM CDT ECG 12-LEAD Routine 01/03/2025 5:36 AM CDT EGFR Timed 01/03/2025 4:39 AM CDT HEMOGLOBIN A1C Timed 01/03/2025 4:39 AM CDT PHOSPHORUS Timed 01/03/2025 4:39 AM CDT MAGNESIUM Timed 01/03/2025 4:39 AM CDT HEPATIC FUNCTION PANEL Timed 4:39 AM CDT CBC WITHOUT DIFFERENTIAL Timed 01/03/2025 4:39 AM CDT BASIC METABOLIC PANEL Timed 01/03/2025 4:39 AM CDT POCT GLUCOSE DEVICE Routine 01/03/2025 1 :54 AM CDT POCT GLUCOSE DEVICE Routine 01/02/2025 8 :19 PM CDT TROPONIN I HIGH-SENSITIVITY 4-HOUR Timed 01/02/2025 6:21 PM CDT POCT GLUCOSE DEVICE Routine 01/02/2025 5 :02 PM CDT TROPONIN I HIGH-SENSITIVITY 2-HOUR Timed 01/02/2025 4:14 PM CDT POCT GLUCOSE DEVICE Routine 01/02/2025 4 :09 PM CDT XR CHEST 1 VIEW ED 01/02/2025 3:48 PM CDT ECG 12-LEAD Routine 01/02/2025 3:33 PM CDT ECG 12-LEAD STAT 01/02/2025 3:32 PM CDT AL CRITICAL CARE ILL/INJURED PATIENT INIT 30-74 MIN Routine 01/02/2025 3:31 PM CDT TYPE AND SCREEN STAT 01/02/2025 2:33 PM CDT EGFR STAT 01/02/2025 2:24 PM CDT DIFFERENTIAL AUTO STAT 01/02/2025 2:2 4 PM CDT PROTIME-INR STAT 01/02/2025 2:24 PM CDT APTT STAT 01/02/2025 2:24 PM CDT TROPONIN I HIGH-SENSITIVITY SERIES (BASELINE, 2HR, 4HR, 6HR) STAT 01/02/2025 2:24 PM CDT COMPREHENSIVE METABOLIC PANEL STAT 01/02/2025 2:24 PM CDT CBC WITH AUTO DIFFERENTIAL STAT 01/02/2025 2:24 PM CDT POCT GLUCOSE DEVICE Routine 01/02/2025 2 :15 PM CDT POCT GLUCOSE DEVICE Routine 12/27/2024 11:05 AM CDT POCT GLUCOSE DEVICE Routine 12/27/2024 7 :59 AM CDT ECG 12-LEAD STAT 12/27/2024 6:25 AM CDT POCT GLUCOSE DEVICE Routine 12/27/2024 1 :24 AM CDT EGFR Routine 12/26/2024 10:07 PM CDT PHOSPHORUS Routine 12/26/2024 10:07 PM CDT MAGNESIUM Routine 12/26/2024 10:07 PM CDT CBC WITHOUT DIFFERENTIAL Routine 12/26/2024 10:07 PM CDT TYPE AND SCREEN Timed 12/26/2024 10:07 PM CDT BASIC METABOLIC PANEL Routine 12/26/2024 10:07 PM CDT POCT GLUCOSE DEVICE Routine 12/26/2024 8 :14 PM CDT POCT GLUCOSE DEVICE Routine 12/26/2024 5 :14 PM CDT POCT GLUCOSE DEVICE Routine 12/26/2024 12:01 PM CDT POCT GLUCOSE DEVICE Routine 12/26/2024 7 :29 AM CDT POCT GLUCOSE DEVICE Routine 12/26/2024 2 :01 AM CDT POCT GLUCOSE DEVICE Routine 12/25/2024 7 :30 PM CDT PEP THERAPY Routine 12/25/2024 6:00 PM CDT POCT GLUCOSE DEVICE Routine 12/25/2024 5 :39 PM CDT POCT GLUCOSE DEVICE Routine 12/25/2024 12:21 PM CDT POCT GLUCOSE DEVICE Routine 12/25/2024 7 :19 AM CDT POCT GLUCOSE DEVICE Routine 12/25/2024 3 :55 AM CDT EGFR Routine 12/24/2024 8:56 PM CDT PHOSPHORUS Routine 12/24/2024 8:56 PM CDT MAGNESIUM Routine 12/24/2024 8:56 PM CDT CBC WITHOUT DIFFERENTIAL Routine 12/24/2024 8:56 PM CDT BASIC METABOLIC PANEL Routine 12/24/2024 8:56 PM CDT POCT GLUCOSE DEVICE Routine 12/24/2024 8 :40 PM CDT POCT GLUCOSE DEVICE Routine 12/24/2024 5 :19 PM CDT POCT GLUCOSE DEVICE Routine 12/24/2024 12:40 PM CDT POCT GLUCOSE DEVICE Routine 12/24/2024 8 :55 AM CDT ECG 12-LEAD Routine 12/24/2024 2:40 AM CDT POCT GLUCOSE DEVICE Routine 12/24/2024 2 :16 AM CDT EGFR Routine 12/23/2024 10:27 PM CDT PROTIME-INR Routine 12/23/2024 10:27 PM CDT PHOSPHORUS Routine 12/23/2024 10:27 PM CDT MAGNESIUM Routine 12/23/2024 10:27 PM CDT CBC WITHOUT DIFFERENTIAL Routine 12/23/2024 10:27 PM CDT TYPE AND SCREEN Timed 12/23/2024 10:27 PM CDT BASIC METABOLIC PANEL Routine 12/23/2024 10:27 PM CDT POCT GLUCOSE DEVICE Routine 12/23/2024 8 :08 PM CDT POCT GLUCOSE DEVICE Routine 12/23/2024 5 :27 PM CDT POCT GLUCOSE DEVICE Routine 12/23/2024 12:02 PM CDT POCT GLUCOSE DEVICE Routine 12/23/2024 11:34 AM CDT ECG 12-LEAD STAT 12/23/2024 9:59 AM CDT POCT GLUCOSE DEVICE Routine 12/23/2024 8 :06 AM CDT XR CHEST 1 VIEW Timed 12/23/2024 7:48 AM CDT POCT GLUCOSE DEVICE Routine 12/23/2024 1 :43 AM CDT EGFR Routine 12/22/2024 10:13 PM CDT PROTIME-INR Routine 12/22/2024 10:13 PM CDT PHOSPHORUS Routine 12/22/2024 10:13 PM CDT MAGNESIUM Routine 12/22/2024 10:13 PM CDT CBC WITHOUT DIFFERENTIAL Routine 12/22/2024 10:13 PM CDT BASIC METABOLIC PANEL Routine 12/22/2024 10:13 PM CDT POCT GLUCOSE DEVICE Routine 12/22/2024 10:12 PM CDT POCT GLUCOSE DEVICE Routine 12/22/2024 10:10 PM CDT PEP THERAPY Routine 12/22/2024 6:00 PM CDT POCT GLUCOSE DEVICE Routine 12/22/2024 5 :30 PM CDT PEP THERAPY Routine 12/22/2024 1:00 PM CDT POCT GLUCOSE DEVICE Routine 12/22/2024 11:40 AM CDT POCT GLUCOSE DEVICE Routine 12/22/2024 8 :03 AM CDT PEP THERAPY Routine 12/22/2024 8:00 AM CDT POCT GLUCOSE DEVICE Routine 12/22/2024 1 :20 AM CDT EGFR Routine 12/21/2024 9:26 PM CDT PROTIME-INR Routine 12/21/2024 9:26 PM CDT PHOSPHORUS Routine 12/21/2024 9:26 PM CDT MAGNESIUM Routine 12/21/2024 9:26 PM CDT CBC WITHOUT DIFFERENTIAL Routine 12/21/2024 9:26 PM CDT BASIC METABOLIC PANEL Routine 12/21/2024 9:26 PM CDT POCT GLUCOSE DEVICE Routine 12/21/2024 8 :46 PM CDT PEP THERAPY Routine 12/21/2024 6:00 PM CDT POCT GLUCOSE DEVICE Routine 12/21/2024 5 :26 PM CDT PEP THERAPY Routine 12/21/2024 1:00 PM CDT POCT GLUCOSE DEVICE Routine 12/21/2024 12:20 PM CDT XR CHEST 1 VIEW IP Routine 12/21/2024 11:53 AM CDT CELL DIFFERENTIAL, BODY FLUID Routine 12/21/2024 11:14 AM CDT GLUCOSE, BODY FLUID Routine 12/21/2024 11:14 AM CDT PROTEIN, BODY FLUID Routine 12/21/2024 11:14 AM CDT LACTATE DEHYDROGENASE, BODY FLUID Routine 12/21/2024 11:14 AM CDT CELL COUNT W/REFLEX DIFFERENTIAL, BODY FLUID Routine 12/21/2024 11:14 AM CDT MYCOLOGY (FUNGAL) CULTURE AND STAIN Routine 12/21/2024 11:14 AM CDT MYCOBACTERIOLOGY AFB CULTURE AND ACID-FAST STAIN Routine 12/21/2024 11:14 AM CDT AEROBIC AND ANAEROBIC CULTURE AND GRAM STAIN Routine 12/21/2024 11:14 AM CDT THORACENTESIS Routine 12/21/2024 11:12 AM CDT XR CHEST 1 VIEW IP Routine 12/21/2024 9:40 AM CDT POCT GLUCOSE DEVICE Routine 12/21/2024 8 :24 AM CDT PEP THERAPY Routine 12/21/2024 8:00 AM CDT POCT GLUCOSE DEVICE Routine 12/21/2024 1 :51 AM CDT EGFR Routine 12/20/2024 9:19 PM CDT DIFFERENTIAL AUTO Routine 12/20/2024 9:1 9 PM CDT APTT Routine 12/20/2024 9:19 PM CDT PROTIME-INR Routine 12/20/2024 9:19 PM CDT PHOSPHORUS Routine 12/20/2024 9:19 PM CDT MAGNESIUM Routine 12/20/2024 9:19 PM CDT COMPREHENSIVE METABOLIC PANEL Routine 12/20/2024 9:19 PM CDT CBC WITH AUTO DIFFERENTIAL Routine 12/20/2024 9:19 PM CDT INFECTION PREVENTION JERAMIE AURIS PCR, SURVEILLANCE Routine 12/20/2024 9:19 PM CDT POCT GLUCOSE DEVICE Routine 12/20/2024 7 :46 PM CDT PEP THERAPY Routine 12/20/2024 6:00 PM CDT POCT GLUCOSE DEVICE Routine 12/20/2024 5 :40 PM CDT PEP THERAPY Routine 12/20/2024 1:00 PM CDT POCT GLUCOSE DEVICE Routine 12/20/2024 11:37 AM CDT XR CHEST PA LATERAL 2 VIEWS IP Routine 12/20/2024 10:02 AM CDT XR CHEST 1 VIEW IP Routine 12/20/2024 8:20 AM CDT PEP THERAPY Routine 12/20/2024 8:01 AM CDT POCT GLUCOSE DEVICE Routine 12/20/2024 2 :18 AM CDT BASIC METABOLIC PANEL Routine 12/19/2024 9:50 PM CDT EGFR Routine 12/19/2024 9:50 PM CDT TYPE AND SCREEN Timed 12/19/2024 9:50 PM CDT PROTIME-INR Routine 12/19/2024 9:50 PM CDT PHOSPHORUS Routine 12/19/2024 9:50 PM CDT MAGNESIUM Routine 12/19/2024 9:50 PM CDT CBC WITHOUT DIFFERENTIAL Routine 12/19/2024 9:50 PM CDT POCT GLUCOSE DEVICE Routine 12/19/2024 8 :32 PM CDT POCT GLUCOSE DEVICE Routine 12/19/2024 6 :05 PM CDT PEP THERAPY Routine 12/19/2024 6:00 PM CDT XR CHEST 1 VIEW IP Routine 12/19/2024 2:13 PM CDT POCT GLUCOSE DEVICE Routine 12/19/2024 1 :50 PM CDT CRITICAL CARE Routine 12/19/2024 1:38 PM CDT Paroxysmal atrial fibrillation with conversion pauses (HCC) PEP THERAPY Routine 12/19/2024 1:00 PM CDT XR CHEST 1 VIEW ED Urgent/IP Urgent 12/19/2024 12:11 PM CDT POCT GLUCOSE DEVICE Routine 12/19/2024 12:00 PM CDT IMPLANT DUAL CHAMBER PPM SYSTEM W/ DUAL ELECTRODES (GEN AND LEADS, NEW OR REPLACE) Routine 12/19/2024 11:34 AM CDT Sinus node dysfunction (HCC) POCT GLUCOSE DEVICE Routine 12/19/2024 9 :02 AM CDT PEP THERAPY Routine 12/19/2024 8:00 AM CDT POCT GLUCOSE DEVICE Routine 12/19/2024 6 :28 AM CDT POCT GLUCOSE DEVICE Routine 12/19/2024 12:50 AM CDT POCT GLUCOSE DEVICE Routine 12/18/2024 9 :13 PM CDT BASIC METABOLIC PANEL Routine 12/18/2024 8:59 PM CDT EGFR Routine 12/18/2024 8:59 PM CDT POTASSIUM, WHOLE BLOOD Routine 8:59 PM CDT PROTIME-INR Routine 12/18/2024 8:59 PM CDT PHOSPHORUS Routine 12/18/2024 8:59 PM CDT MAGNESIUM Routine 12/18/2024 8:59 PM CDT CBC WITHOUT DIFFERENTIAL Routine 12/18/2024 8:59 PM CDT PEP THERAPY Routine 12/18/2024 6:00 PM CDT POCT GLUCOSE DEVICE Routine 12/18/2024 5 :50 PM CDT CRITICAL CARE Routine 12/18/2024 1:34 PM CDT Paroxysmal atrial fibrillation with conversion pauses (HCC) PEP THERAPY Routine 12/18/2024 1:00 PM CDT POCT GLUCOSE DEVICE Routine 12/18/2024 11:15 AM CDT XR CHEST 1 VIEW IP Routine 12/18/2024 8:30 AM CDT POCT GLUCOSE DEVICE Routine 12/18/2024 8 :19 AM CDT PEP THERAPY Routine 12/18/2024 8:00 AM CDT POCT GLUCOSE DEVICE Routine 12/18/2024 1 :18 AM CDT BASIC METABOLIC PANEL Routine 12/17/2024 8:43 PM CDT EGFR Routine 12/17/2024 8:43 PM CDT POTASSIUM, WHOLE BLOOD Routine 8:43 PM CDT PROTIME-INR Routine 12/17/2024 8:43 PM CDT PHOSPHORUS Routine 12/17/2024 8:43 PM CDT MAGNESIUM Routine 12/17/2024 8:43 PM CDT CBC WITHOUT DIFFERENTIAL Routine 12/17/2024 8:43 PM CDT POCT GLUCOSE DEVICE Routine 12/17/2024 8 :41 PM CDT PEP THERAPY Routine 12/17/2024 6:00 PM CDT POCT GLUCOSE DEVICE Routine 12/17/2024 5 :41 PM CDT CRITICAL CARE Routine 12/17/2024 1:17 PM CDT S/P CABG (coronary artery bypass graft) PEP THERAPY Routine 12/17/2024 1:00 PM CDT POCT GLUCOSE DEVICE Routine 12/17/2024 12:27 PM CDT POCT GLUCOSE DEVICE Routine 12/17/2024 12:21 PM CDT CRITICAL RESULT CALLBACK CHEMISTRY STAT 12/17/2024 12:21 PM CDT BLOOD GAS, ARTERIAL STAT 12/17/2024 12:21 PM CDT POTASSIUM, WHOLE BLOOD Routine 12:21 PM CDT POCT GLUCOSE DEVICE Routine 12/17/2024 12:18 PM CDT BASIC METABOLIC PANEL STAT 12/17/2024 12:17 PM CDT MAGNESIUM STAT 12/17/2024 12:17 PM CDT EGFR STAT 12/17/2024 12:17 PM CDT PHOSPHORUS STAT 12/17/2024 12:17 PM CDT T4, FREE Routine 12/17/2024 12:17 PM CDT THYROID FUNCTION CASCADE STAT 12/17/2024 12:17 PM CDT XR CHEST 1 VIEW IP Routine 12/17/2024 11:50 AM CDT PEP THERAPY Routine 12/17/2024 8:00 AM CDT POCT GLUCOSE DEVICE Routine 12/17/2024 7 :53 AM CDT POCT GLUCOSE DEVICE Routine 12/17/2024 2 :57 AM CDT POCT GLUCOSE DEVICE Routine 12/16/2024 9 :10 PM CDT BASIC METABOLIC PANEL Routine 12/16/2024 9:00 PM CDT EGFR Routine 12/16/2024 9:00 PM CDT TYPE AND SCREEN Timed 12/16/2024 9:00 PM CDT PROTIME-INR Routine 12/16/2024 9:00 PM CDT PHOSPHORUS Routine 12/16/2024 9:00 PM CDT MAGNESIUM Routine 12/16/2024 9:00 PM CDT CBC WITHOUT DIFFERENTIAL Routine 12/16/2024 9:00 PM CDT POCT GLUCOSE DEVICE Routine 12/16/2024 7 :37 PM CDT PEP THERAPY Routine 12/16/2024 6:00 PM CDT POCT GLUCOSE DEVICE Routine 12/16/2024 5 :16 PM CDT INFECTION PREVENTION JERAMIE AURIS PCR, SURVEILLANCE Routine 12/16/2024 3:51 PM CDT PEP THERAPY Routine 12/16/2024 1:00 PM CDT POCT GLUCOSE DEVICE Routine 12/16/2024 12:30 PM CDT POCT GLUCOSE DEVICE Routine 12/16/2024 10:26 AM CDT XR CHEST 1 VIEW IP Routine 12/16/2024 9:38 AM CDT CRITICAL CARE Routine 12/16/2024 9:00 AM CDT Paroxysmal atrial fibrillation with conversion pauses (HCC) PEP THERAPY Routine 12/16/2024 8:00 AM CDT POCT GLUCOSE DEVICE Routine 12/16/2024 7 :35 AM CDT POCT GLUCOSE DEVICE Routine 12/16/2024 6 :07 AM CDT POCT GLUCOSE DEVICE Routine 12/16/2024 2 :59 AM CDT POCT GLUCOSE DEVICE Routine 12/15/2024 10:10 PM CDT POCT GLUCOSE DEVICE Routine 12/15/2024 9 :37 PM CDT POCT GLUCOSE DEVICE Routine 12/15/2024 9 :12 PM CDT CRITICAL RESULT CALLBACK CHEMISTRY Routine 12/15/2024 8:50 PM CDT EGFR Routine 12/15/2024 8:50 PM CDT BASIC METABOLIC PANEL Routine 12/15/2024 8:50 PM CDT PROTIME-INR Routine 12/15/2024 8:50 PM CDT PHOSPHORUS Routine 12/15/2024 8:50 PM CDT MAGNESIUM Routine 12/15/2024 8:50 PM CDT CBC WITHOUT DIFFERENTIAL Routine 12/15/2024 8:50 PM CDT TYPE AND SCREEN Timed 12/15/2024 8:50 PM CDT POCT GLUCOSE DEVICE Routine 12/15/2024 8 :48 PM CDT POCT GLUCOSE DEVICE Routine 12/15/2024 8 :47 PM CDT PEP THERAPY Routine 12/15/2024 6:00 PM CDT POCT GLUCOSE DEVICE Routine 12/15/2024 5 :31 PM CDT POCT GLUCOSE DEVICE Routine 12/15/2024 1 :05 PM CDT PEP THERAPY Routine 12/15/2024 1:00 PM CDT CRITICAL CARE Routine 12/15/2024 8:51 AM CDT Atrial fibrillation with RVR (HCC) Paroxysmal atrial fibrillation with conversion pauses (HCC) XR CHEST 1 VIEW IP Routine 12/15/2024 8:50 AM CDT POCT GLUCOSE DEVICE Routine 12/15/2024 8 :42 AM CDT PEP THERAPY Routine 12/15/2024 8:00 AM CDT POCT GLUCOSE DEVICE Routine 12/15/2024 2 :31 AM CDT POCT GLUCOSE DEVICE Routine 12/15/2024 12:30 AM CDT ECG 12-LEAD STAT 12/14/2024 11:52 PM CDT POCT GLUCOSE DEVICE Routine 12/14/2024 10:37 PM CDT HEPATIC FUNCTION PANEL Routine 9:34 PM CDT BASIC METABOLIC PANEL Routine 12/14/2024 9:34 PM CDT EGFR Routine 12/14/2024 9:34 PM CDT PROTIME-INR Routine 12/14/2024 9:34 PM CDT PHOSPHORUS Routine 12/14/2024 9:34 PM CDT MAGNESIUM Routine 12/14/2024 9:34 PM CDT CBC WITHOUT DIFFERENTIAL Routine 12/14/2024 9:34 PM CDT POCT GLUCOSE DEVICE Routine 12/14/2024 9 :33 PM CDT PEP THERAPY Routine 12/14/2024 6:00 PM CDT POCT GLUCOSE DEVICE Routine 12/14/2024 3 :42 PM CDT ECG 12-LEAD Routine 12/14/2024 3:24 PM CDT PEP THERAPY Routine 12/14/2024 1:00 PM CDT POCT GLUCOSE DEVICE Routine 12/14/2024 12:22 PM CDT CRITICAL CARE Routine 12/14/2024 8:40 AM CDT Paroxysmal atrial fibrillation with conversion pauses (HCC) INFECTION PREVENTION MRSA ONLY (STAPHYLOCOCCUS AUREUS) CULTURE Routine 12/14/2024 8:32 AM CDT PEP THERAPY Routine 12/14/2024 8:00 AM CDT POCT GLUCOSE DEVICE Routine 12/14/2024 7 :41 AM CDT XR CHEST 1 VIEW IP Routine 12/14/2024 4:22 AM CDT POCT GLUCOSE DEVICE Routine 12/14/2024 2 :49 AM CDT EGFR Routine 12/13/2024 9:50 PM CDT MAGNESIUM Routine 12/13/2024 9:50 PM CDT PHOSPHORUS Routine 12/13/2024 9:50 PM CDT BASIC METABOLIC PANEL Routine 12/13/2024 9:50 PM CDT PROTIME-INR Routine 12/13/2024 9:50 PM CDT CBC WITHOUT DIFFERENTIAL Routine 12/13/2024 9:50 PM CDT POCT GLUCOSE DEVICE Routine 12/13/2024 9 :48 PM CDT PEP THERAPY Routine 12/13/2024 6:00 PM CDT POCT GLUCOSE DEVICE Routine 12/13/2024 5 :38 PM CDT POCT GLUCOSE DEVICE Routine 12/13/2024 5 :22 PM CDT PEP THERAPY Routine 12/13/2024 1:00 PM CDT POCT GLUCOSE DEVICE Routine 12/13/2024 11:14 AM CDT RESPIRATORY PATHOGEN PANEL Routine 12/13/2024 9:24 AM CDT CRITICAL CARE Routine 12/13/2024 8:41 AM CDT Paroxysmal atrial fibrillation with conversion pauses (HCC) URINALYSIS AND REFLEX TO MICROSCOPIC Routine 12/13/2024 8:39 AM CDT POCT GLUCOSE DEVICE Routine 12/13/2024 8 :19 AM CDT TYPE AND SCREEN Timed 12/13/2024 8:13 AM CDT PEP THERAPY Routine 12/13/2024 8:00 AM CDT POCT GLUCOSE DEVICE Routine 12/13/2024 7 :50 AM CDT XR CHEST 1 VIEW IP Routine 12/13/2024 5:59 AM CDT POCT GLUCOSE DEVICE Routine 12/13/2024 2 :07 AM CDT POCT GLUCOSE DEVICE Routine 12/12/2024 9 :08 PM CDT BASIC METABOLIC PANEL Routine 12/12/2024 9:08 PM CDT EGFR Routine 12/12/2024 9:08 PM CDT PROTIME-INR Routine 12/12/2024 9:08 PM CDT PHOSPHORUS Routine 12/12/2024 9:08 PM CDT MAGNESIUM Routine 12/12/2024 9:08 PM CDT CBC WITHOUT DIFFERENTIAL Routine 12/12/2024 9:08 PM CDT POCT GLUCOSE DEVICE Routine 12/12/2024 6 :45 PM CDT PEP THERAPY Routine 12/12/2024 6:00 PM CDT POCT GLUCOSE DEVICE Routine 12/12/2024 5 :18 PM CDT POCT GLUCOSE DEVICE Routine 12/12/2024 5 :16 PM CDT PEP THERAPY Routine 12/12/2024 1:00 PM CDT POCT GLUCOSE DEVICE Routine 12/12/2024 12:07 PM CDT XR CHEST 1 VIEW ED Urgent/IP Urgent 12/12/2024 10:11 AM CDT POCT GLUCOSE DEVICE Routine 12/12/2024 8 :55 AM CDT CRITICAL CARE Routine 12/12/2024 8:48 AM CDT Atrial fibrillation with RVR (HCC) PEP THERAPY Routine 12/12/2024 8:00 AM CDT INFECTION PREVENTION JERAMIE AURIS PCR, SURVEILLANCE Routine 12/12/2024 5:39 AM CDT POCT GLUCOSE DEVICE Routine 12/12/2024 5 :14 AM CDT POCT GLUCOSE DEVICE Routine 12/12/2024 4 :12 AM CDT POCT GLUCOSE DEVICE Routine 12/12/2024 3 :45 AM CDT POCT GLUCOSE DEVICE Routine 12/12/2024 3 :27 AM CDT POCT GLUCOSE DEVICE Routine 12/11/2024 8 :42 PM CDT BASIC METABOLIC PANEL Routine 12/11/2024 8:38 PM CDT EGFR Routine 12/11/2024 8:38 PM CDT PROTIME-INR Routine 12/11/2024 8:38 PM CDT PHOSPHORUS Routine 12/11/2024 8:38 PM CDT MAGNESIUM Routine 12/11/2024 8:38 PM CDT CBC WITHOUT DIFFERENTIAL Routine 12/11/2024 8:38 PM CDT PEP THERAPY Routine 12/11/2024 6:00 PM CDT POCT GLUCOSE DEVICE Routine 12/11/2024 5 :06 PM CDT PEP THERAPY Routine 12/11/2024 1:00 PM CDT POCT GLUCOSE DEVICE Routine 12/11/2024 11:52 AM CDT CRITICAL CARE Routine 12/11/2024 8:51 AM CDT Atrial fibrillation with RVR (HCC) POCT GLUCOSE DEVICE Routine 12/11/2024 8 :29 AM CDT PEP THERAPY Routine 12/11/2024 8:00 AM CDT POCT GLUCOSE DEVICE Routine 12/11/2024 1 :47 AM CDT BASIC METABOLIC PANEL Routine 12/10/2024 8:09 PM CDT EGFR Routine 12/10/2024 8:09 PM CDT TYPE AND SCREEN Timed 12/10/2024 8:09 PM CDT PROTIME-INR Routine 12/10/2024 8:09 PM CDT PHOSPHORUS Routine 12/10/2024 8:09 PM CDT MAGNESIUM Routine 12/10/2024 8:09 PM CDT CBC WITHOUT DIFFERENTIAL Routine 12/10/2024 8:09 PM CDT POCT GLUCOSE DEVICE Routine 12/10/2024 8 :07 PM CDT XR CHEST 1 VIEW Timed 12/10/2024 6:49 PM CDT PEP THERAPY Routine 12/10/2024 6:00 PM CDT POCT GLUCOSE DEVICE Routine 12/10/2024 5 :04 PM CDT TRANSTHORACIC ECHO (TTE) COMPLETE W DOPPLER/CF W CONTRAST ED Urgent/IP Urgent 12/10/2024 3:53 PM CDT PEP THERAPY Routine 12/10/2024 1:00 PM CDT POCT GLUCOSE DEVICE Routine 12/10/2024 11:38 AM CDT POCT GLUCOSE DEVICE Routine 12/10/2024 9 :09 AM CDT CRITICAL CARE Routine 12/10/2024 8:59 AM CDT Atrial fibrillation with RVR (HCC) PEP THERAPY Routine 12/10/2024 8:00 AM CDT POCT GLUCOSE DEVICE Routine 12/10/2024 7 :39 AM CDT POCT GLUCOSE DEVICE Routine 12/10/2024 2 :24 AM CDT BASIC METABOLIC PANEL Routine 12/09/2024 11:23 PM CDT EGFR Routine 12/09/2024 11:23 PM CDT PROTIME-INR Routine 12/09/2024 11:23 PM CDT PHOSPHORUS Routine 12/09/2024 11:23 PM CDT MAGNESIUM Routine 12/09/2024 11:23 PM CDT CBC WITHOUT DIFFERENTIAL Routine 12/09/2024 11:23 PM CDT POCT GLUCOSE DEVICE Routine 12/09/2024 8 :28 PM CDT XR CHEST 1 VIEW Timed 12/09/2024 8:16 PM CDT POCT GLUCOSE DEVICE Routine 12/09/2024 7 :01 PM CDT PEP THERAPY Routine 12/09/2024 6:00 PM CDT POCT GLUCOSE DEVICE Routine 12/09/2024 5 :22 PM CDT POCT GLUCOSE DEVICE Routine 12/09/2024 2 :07 PM CDT PEP THERAPY Routine 12/09/2024 1:00 PM CDT POCT GLUCOSE DEVICE Routine 12/09/2024 12:12 PM CDT PEP THERAPY Routine 12/09/2024 8:00 AM CDT CRITICAL CARE Routine 12/09/2024 8:00 AM CDT Severe aortic stenosis POCT GLUCOSE DEVICE Routine 12/09/2024 7 :50 AM CDT POCT GLUCOSE DEVICE Routine 12/09/2024 1 :40 AM CDT EGFR Routine 12/09/2024 12:01 AM CDT MAGNESIUM Routine 12/09/2024 12:01 AM CDT PHOSPHORUS Routine 12/09/2024 12:01 AM CDT PROTIME-INR Routine 12/09/2024 12:01 AM CDT CBC WITHOUT DIFFERENTIAL Routine 12/09/2024 12:01 AM CDT BASIC METABOLIC PANEL Routine 12/09/2024 12:01 AM CDT POCT GLUCOSE DEVICE Routine 12/08/2024 9 :08 PM CDT XR CHEST 1 VIEW Timed 12/08/2024 8:42 PM CDT POTASSIUM, WHOLE BLOOD Routine 8:19 PM CDT POCT GLUCOSE DEVICE Routine 12/08/2024 8 :17 PM CDT PEP THERAPY Routine 12/08/2024 6:00 PM CDT POCT GLUCOSE DEVICE Routine 12/08/2024 3 :25 PM CDT PEP THERAPY Routine 12/08/2024 1:00 PM CDT POCT GLUCOSE DEVICE Routine 12/08/2024 12:12 PM CDT POTASSIUM, WHOLE BLOOD Routine 12:12 PM CDT PEP THERAPY Routine 12/08/2024 8:00 AM CDT CRITICAL CARE Routine 12/08/2024 8:00 AM CDT Severe aortic stenosis POCT GLUCOSE DEVICE Routine 12/08/2024 7 :50 AM CDT POCT GLUCOSE DEVICE Routine 12/08/2024 6 :03 AM CDT POCT GLUCOSE DEVICE Routine 12/08/2024 3 :47 AM CDT POCT GLUCOSE DEVICE Routine 12/08/2024 1 :58 AM CDT INFECTION PREVENTION JERAMIE AURIS PCR, SURVEILLANCE Routine 12/08/2024 12:55 AM CDT EGFR Routine 12/08/2024 12:17 AM CDT PHOSPHORUS Routine 12/08/2024 12:17 AM CDT MAGNESIUM Routine 12/08/2024 12:17 AM CDT POTASSIUM, WHOLE BLOOD Routine 12:17 AM CDT BASIC METABOLIC PANEL Routine 12/08/2024 12:17 AM CDT CBC WITHOUT DIFFERENTIAL Routine 12/08/2024 12:17 AM CDT TYPE AND SCREEN Timed 12/08/2024 12:17 AM CDT POCT GLUCOSE DEVICE Routine 12/08/2024 12:15 AM CDT XR CHEST 1 VIEW Timed 12/07/2024 8:46 PM CDT POCT GLUCOSE DEVICE Routine 12/07/2024 8 :15 PM CDT PEP THERAPY Routine 12/07/2024 6:00 PM CDT POCT GLUCOSE DEVICE Routine 12/07/2024 5 :23 PM CDT POCT GLUCOSE DEVICE Routine 12/07/2024 3 :33 PM CDT POCT GLUCOSE DEVICE Routine 12/07/2024 1 :51 PM CDT PEP THERAPY Routine 12/07/2024 1:00 PM CDT POTASSIUM, WHOLE BLOOD Routine 12:12 PM CDT POCT GLUCOSE DEVICE Routine 12/07/2024 12:09 PM CDT POCT GLUCOSE DEVICE Routine 12/07/2024 10:11 AM CDT PEP THERAPY Routine 12/07/2024 8:00 AM CDT CRITICAL CARE Routine 12/07/2024 8:00 AM CDT Severe aortic stenosis POCT GLUCOSE DEVICE Routine 12/07/2024 7 :01 AM CDT POCT GLUCOSE DEVICE Routine 12/07/2024 6 :09 AM CDT POCT GLUCOSE DEVICE Routine 12/07/2024 4 :44 AM CDT POTASSIUM, WHOLE BLOOD Routine 4:44 AM CDT CALCIUM,IONIZED, WHOLE BLOOD STAT 12/07/2024 4:44 AM CDT POCT GLUCOSE DEVICE Routine 12/07/2024 3 :57 AM CDT POCT GLUCOSE DEVICE Routine 12/07/2024 3 :02 AM CDT POCT GLUCOSE DEVICE Routine 12/07/2024 2 :05 AM CDT POCT GLUCOSE DEVICE Routine 12/07/2024 1 :03 AM CDT EGFR Routine 12/07/2024 12:30 AM CDT PHOSPHORUS Routine 12/07/2024 12:30 AM CDT MAGNESIUM Routine 12/07/2024 12:30 AM CDT POTASSIUM, WHOLE BLOOD Routine 12:30 AM CDT BASIC METABOLIC PANEL Routine 12/07/2024 12:30 AM CDT CBC WITHOUT DIFFERENTIAL Routine 12/07/2024 12:30 AM CDT POCT GLUCOSE DEVICE Routine 12/06/2024 11:52 PM CDT POCT GLUCOSE DEVICE Routine 12/06/2024 11:01 PM CDT POCT GLUCOSE DEVICE Routine 12/06/2024 10:02 PM CDT POCT GLUCOSE DEVICE Routine 12/06/2024 9 :16 PM CDT POCT GLUCOSE DEVICE Routine 12/06/2024 8 :07 PM CDT XR CHEST 1 VIEW Timed 12/06/2024 7:35 PM CDT POCT GLUCOSE DEVICE Routine 12/06/2024 6 :16 PM CDT PEP THERAPY Routine 12/06/2024 6:00 PM CDT POCT GLUCOSE DEVICE Routine 12/06/2024 5 :24 PM CDT POTASSIUM, WHOLE BLOOD Routine 4:55 PM CDT OXYHEMOGLOBIN, CENTRAL VENOUS Routine 12/06/2024 4:55 PM CDT ECG 12-LEAD STAT 12/06/2024 3:15 PM CDT POCT GLUCOSE DEVICE Routine 12/06/2024 2 :52 PM CDT POCT GLUCOSE DEVICE Routine 12/06/2024 1 :14 PM CDT POCT GLUCOSE DEVICE Routine 12/06/2024 1 :12 PM CDT PEP THERAPY Routine 12/06/2024 1:00 PM CDT POCT GLUCOSE DEVICE Routine 12/06/2024 12:23 PM CDT POCT GLUCOSE DEVICE Routine 12/06/2024 11:01 AM CDT ECG 12-LEAD STAT 12/06/2024 10:45 AM CDT POCT GLUCOSE DEVICE Routine 12/06/2024 10:10 AM CDT POCT GLUCOSE DEVICE Routine 12/06/2024 9 :01 AM CDT POCT GLUCOSE DEVICE Routine 12/06/2024 8 :02 AM CDT PEP THERAPY Routine 12/06/2024 8:00 AM CDT CRITICAL CARE Routine 12/06/2024 8:00 AM CDT Severe aortic stenosis POCT GLUCOSE DEVICE Routine 12/06/2024 6 :41 AM CDT POCT GLUCOSE DEVICE Routine 12/06/2024 5 :02 AM CDT POCT GLUCOSE DEVICE Routine 12/06/2024 3 :46 AM CDT POTASSIUM, WHOLE BLOOD Routine 3:46 AM CDT POCT GLUCOSE DEVICE Routine 12/06/2024 2 :35 AM CDT POCT GLUCOSE DEVICE Routine 12/06/2024 1 :22 AM CDT POCT GLUCOSE DEVICE Routine 12/06/2024 12:27 AM CDT EGFR Routine 12/06/2024 12:27 AM CDT BLOOD GAS, ARTERIAL STAT 12/06/2024 12:27 AM CDT POTASSIUM, WHOLE BLOOD Routine 12:27 AM CDT PHOSPHORUS Routine 12/06/2024 12:27 AM CDT MAGNESIUM Routine 12/06/2024 12:27 AM CDT BASIC METABOLIC PANEL Routine 12/06/2024 12:27 AM CDT CBC WITHOUT DIFFERENTIAL Routine 12/06/2024 12:27 AM CDT POCT GLUCOSE DEVICE Routine 12/05/2024 11:06 PM CDT POCT GLUCOSE DEVICE Routine 12/05/2024 10:16 PM CDT POCT GLUCOSE DEVICE Routine 12/05/2024 9 :10 PM CDT POTASSIUM, WHOLE BLOOD Routine 8:07 PM CDT POCT GLUCOSE DEVICE Routine 12/05/2024 8 :06 PM CDT XR CHEST 1 VIEW Timed 12/05/2024 8:02 PM CDT POCT GLUCOSE DEVICE Routine 12/05/2024 7 :15 PM CDT PEP THERAPY Routine 12/05/2024 6:00 PM CDT POCT GLUCOSE DEVICE Routine 12/05/2024 5 :59 PM CDT POCT GLUCOSE DEVICE Routine 12/05/2024 4 :56 PM CDT POTASSIUM, WHOLE BLOOD Routine 4:54 PM CDT POCT GLUCOSE DEVICE Routine 12/05/2024 4 :07 PM CDT POCT GLUCOSE DEVICE Routine 12/05/2024 3 :05 PM CDT POCT GLUCOSE DEVICE Routine 12/05/2024 2 :07 PM CDT POCT GLUCOSE DEVICE Routine 12/05/2024 1 :01 PM CDT PEP THERAPY Routine 12/05/2024 1:00 PM CDT POCT GLUCOSE DEVICE Routine 12/05/2024 12:05 PM CDT POTASSIUM, WHOLE BLOOD Routine 12:04 PM CDT POCT GLUCOSE DEVICE Routine 12/05/2024 10:53 AM CDT POCT GLUCOSE DEVICE Routine 12/05/2024 10:05 AM CDT POCT GLUCOSE DEVICE Routine 12/05/2024 9 :13 AM CDT POCT GLUCOSE DEVICE Routine 12/05/2024 8 :17 AM CDT BLOOD GAS, ARTERIAL STAT 12/05/2024 8 :17 AM CDT POTASSIUM, WHOLE BLOOD Routine 8:17 AM CDT PEP THERAPY Routine 12/05/2024 8:00 AM CDT CRITICAL CARE Routine 12/05/2024 8:00 AM CDT Severe aortic stenosis POCT GLUCOSE DEVICE Routine 12/05/2024 6 :54 AM CDT POCT GLUCOSE DEVICE Routine 12/05/2024 6 :09 AM CDT POCT GLUCOSE DEVICE Routine 12/05/2024 5 :03 AM CDT POCT GLUCOSE DEVICE Routine 12/05/2024 4 :13 AM CDT CALCIUM,IONIZED, WHOLE BLOOD STAT 12/05/2024 4:10 AM CDT BLOOD GAS, ARTERIAL STAT 12/05/2024 4 :10 AM CDT INFECTION PREVENTION JERAMIE AURIS PCR, SURVEILLANCE Routine 12/05/2024 4:10 AM CDT POCT GLUCOSE DEVICE Routine 12/05/2024 3 :07 AM CDT POCT GLUCOSE DEVICE Routine 12/05/2024 1 :57 AM CDT POCT GLUCOSE DEVICE Routine 12/05/2024 1 :17 AM CDT EGFR Routine 12/05/2024 12:09 AM CDT PHOSPHORUS Routine 12/05/2024 12:09 AM CDT MAGNESIUM Routine 12/05/2024 12:09 AM CDT POTASSIUM, WHOLE BLOOD Routine 12:09 AM CDT BASIC METABOLIC PANEL Routine 12/05/2024 12:09 AM CDT CBC WITHOUT DIFFERENTIAL Routine 12/05/2024 12:09 AM CDT TYPE AND SCREEN Timed 12/05/2024 12:09 AM CDT POCT GLUCOSE DEVICE Routine 12/05/2024 12:08 AM CDT POCT GLUCOSE DEVICE Routine 12/04/2024 10:11 PM CDT POCT GLUCOSE DEVICE Routine 12/04/2024 8 :33 PM CDT XR CHEST 1 VIEW Timed 12/04/2024 7:50 PM CDT POCT GLUCOSE DEVICE Routine 12/04/2024 6 :08 PM CDT PEP THERAPY Routine 12/04/2024 6:00 PM CDT PEP THERAPY Routine 12/04/2024 1:00 PM CDT XR CHEST 1 VIEW ED Urgent/IP Urgent 12/04/2024 12:20 PM CDT POCT GLUCOSE DEVICE Routine 12/04/2024 11:37 AM CDT POTASSIUM, WHOLE BLOOD Routine 11:37 AM CDT POCT GLUCOSE DEVICE Routine 12/04/2024 9 :56 AM CDT POCT GLUCOSE DEVICE Routine 12/04/2024 8 :10 AM CDT PEP THERAPY Routine 12/04/2024 8:00 AM CDT CRITICAL CARE Routine 12/04/2024 8:00 AM CDT Severe aortic stenosis POCT GLUCOSE DEVICE Routine 12/04/2024 6 :56 AM CDT POCT GLUCOSE DEVICE Routine 12/04/2024 5 :52 AM CDT BLOOD GAS, ARTERIAL STAT 12/04/2024 4 :11 AM CDT POTASSIUM, WHOLE BLOOD Routine 4:11 AM CDT POCT GLUCOSE DEVICE Routine 12/04/2024 4 :07 AM CDT POCT GLUCOSE DEVICE Routine 12/04/2024 2 :06 AM CDT POCT GLUCOSE DEVICE Routine 12/04/2024 12:01 AM CDT EGFR Routine 12/04/2024 12:01 AM CDT POTASSIUM, WHOLE BLOOD Routine 12:01 AM CDT BLOOD GAS, ARTERIAL STAT 12/04/2024 12:01 AM CDT PHOSPHORUS Routine 12/04/2024 12:01 AM CDT MAGNESIUM Routine 12/04/2024 12:01 AM CDT BASIC METABOLIC PANEL Routine 12/04/2024 12:01 AM CDT CBC WITHOUT DIFFERENTIAL Routine 12/04/2024 12:01 AM CDT POCT GLUCOSE DEVICE Routine 12/03/2024 11:06 PM CDT POCT GLUCOSE DEVICE Routine 12/03/2024 10:16 PM CDT POCT GLUCOSE DEVICE Routine 12/03/2024 9 :07 PM CDT PEP THERAPY Routine 12/03/2024 8:43 PM CDT PEP THERAPY Routine 12/03/2024 8:43 PM CDT PEP THERAPY Routine 12/03/2024 8:43 PM CDT POCT GLUCOSE DEVICE Routine 12/03/2024 8 :03 PM CDT POCT GLUCOSE DEVICE Routine 12/03/2024 7 :05 PM CDT POTASSIUM, WHOLE BLOOD Timed 6:19 PM CDT POCT GLUCOSE DEVICE Routine 12/03/2024 6 :18 PM CDT POCT GLUCOSE DEVICE Routine 12/03/2024 5 :00 PM CDT EGFR Timed 12/03/2024 3:12 PM CDT BASIC METABOLIC PANEL Timed 12/03/2024 3:12 PM CDT POCT GLUCOSE DEVICE Routine 12/03/2024 3 :11 PM CDT POCT GLUCOSE DEVICE Routine 12/03/2024 2 :19 PM CDT POCT GLUCOSE DEVICE Routine 12/03/2024 1 :01 PM CDT POCT GLUCOSE DEVICE Routine 12/03/2024 12:10 PM CDT POTASSIUM, WHOLE BLOOD Routine 12:05 PM CDT POCT GLUCOSE DEVICE Routine 12/03/2024 10:53 AM CDT POCT GLUCOSE DEVICE Routine 12/03/2024 8 :03 AM CDT POTASSIUM, WHOLE BLOOD Routine 8:03 AM CDT CRITICAL CARE Routine 12/03/2024 8:00 AM CDT Severe aortic stenosis POCT GLUCOSE DEVICE Routine 12/03/2024 6 :12 AM CDT BLOOD GAS, ARTERIAL STAT 12/03/2024 6 :12 AM CDT POCT GLUCOSE DEVICE Routine 12/03/2024 5 :03 AM CDT POCT GLUCOSE DEVICE Routine 12/03/2024 3 :04 AM CDT POCT GLUCOSE DEVICE Routine 12/03/2024 2 :13 AM CDT POCT GLUCOSE DEVICE Routine 12/03/2024 1 :19 AM CDT EGFR Routine 12/03/2024 12:03 AM CDT BLOOD GAS, ARTERIAL STAT 12/03/2024 12:03 AM CDT OXYHEMOGLOBIN, CENTRAL VENOUS Routine 12/03/2024 12:03 AM CDT PHOSPHORUS Routine 12/03/2024 12:03 AM CDT MAGNESIUM Routine 12/03/2024 12:03 AM CDT POTASSIUM, WHOLE BLOOD Routine 12:03 AM CDT BASIC METABOLIC PANEL Routine 12/03/2024 12:03 AM CDT CBC WITHOUT DIFFERENTIAL Routine 12/03/2024 12:03 AM CDT POCT GLUCOSE DEVICE Routine 12/03/2024 12:02 AM CDT POCT GLUCOSE DEVICE Routine 12/02/2024 11:07 PM CDT POCT GLUCOSE DEVICE Routine 12/02/2024 10:06 PM CDT XR CHEST 1 VIEW IP Routine 12/02/2024 9:10 PM CDT BLOOD GAS, ARTERIAL STAT 12/02/2024 8 :56 PM CDT POCT GLUCOSE DEVICE Routine 12/02/2024 8 :54 PM CDT POCT GLUCOSE DEVICE Routine 12/02/2024 7 :09 PM CDT POCT GLUCOSE DEVICE Routine 12/02/2024 6 :06 PM CDT BLOOD GAS, ARTERIAL STAT 12/02/2024 5 :36 PM CDT POCT GLUCOSE DEVICE Routine 12/02/2024 5 :14 PM CDT POCT GLUCOSE DEVICE Routine 12/02/2024 4 :06 PM CDT POCT GLUCOSE DEVICE Routine 12/02/2024 3 :22 PM CDT POCT GLUCOSE DEVICE Routine 12/02/2024 1 :47 PM CDT BLOOD GAS, ARTERIAL STAT 12/02/2024 1 :46 PM CDT POCT GLUCOSE DEVICE Routine 12/02/2024 1 :00 PM CDT POCT GLUCOSE DEVICE Routine 12/02/2024 12:34 PM CDT INFECTION PREVENTION JERAMIE AURIS PCR, SURVEILLANCE Routine 12/02/2024 11:25 AM CDT POCT GLUCOSE DEVICE Routine 12/02/2024 11:21 AM CDT BLOOD GAS, ARTERIAL STAT 12/02/2024 11:21 AM CDT POTASSIUM, WHOLE BLOOD Routine 11:21 AM CDT POCT GLUCOSE DEVICE Routine 12/02/2024 9 :52 AM CDT POCT GLUCOSE DEVICE Routine 12/02/2024 8 :35 AM CDT POCT GLUCOSE DEVICE Routine 12/02/2024 6 :54 AM CDT POCT GLUCOSE DEVICE Routine 12/02/2024 6 :11 AM CDT POTASSIUM, WHOLE BLOOD STAT 5:18 AM CDT BLOOD GAS, ARTERIAL STAT 12/02/2024 5 :18 AM CDT POCT GLUCOSE DEVICE Routine 12/02/2024 5 :03 AM CDT OXYHEMOGLOBIN, CENTRAL VENOUS Routine 12/02/2024 5:02 AM CDT EXTUBATION Routine 12/02/2024 5:00 AM CDT POCT GLUCOSE DEVICE Routine 12/02/2024 4 :01 AM CDT POCT GLUCOSE DEVICE Routine 12/02/2024 3 :06 AM CDT POCT GLUCOSE DEVICE Routine 12/02/2024 2 :19 AM CDT LIPID PANEL STAT 12/02/2024 1:44 AM CDT PHOSPHORUS STAT 12/02/2024 1:44 AM CDT EGFR STAT 12/02/2024 1:44 AM CDT TRIGLYCERIDES Timed 12/02/2024 1:44 AM CDT BLOOD GAS, ARTERIAL STAT 12/02/2024 1 :44 AM CDT OXYHEMOGLOBIN, CENTRAL VENOUS Routine 12/02/2024 1:44 AM CDT APTT STAT 12/02/2024 1:44 AM CDT PROTIME-INR STAT 12/02/2024 1:44 AM CDT CBC WITHOUT DIFFERENTIAL STAT 12/02/2024 1:44 AM CDT POTASSIUM, WHOLE BLOOD Routine 1:44 AM CDT CALCIUM,IONIZED, WHOLE BLOOD STAT 12/02/2024 1:44 AM CDT MAGNESIUM STAT 12/02/2024 1:44 AM CDT BASIC METABOLIC PANEL STAT 12/02/2024 1:44 AM CDT TYPE AND SCREEN Timed 12/02/2024 1:44 AM CDT XR ABDOMEN AP 1 VIEW ED Urgent/IP Urgent 12/02/2024 1:36 AM CDT XR CHEST 1 VIEW ED Urgent/IP Urgent 12/02/2024 1:18 AM CDT POC BLOOD GAS AND CHEMISTRIES, ARTERIAL Routine 12/02/2024 12:57 AM CDT XR CHEST 1 VIEW IP Routine 12/02/2024 12:30 AM CDT POCT HEPARIN/ACT CPB Routine 12/01/2024 11:10 PM CDT POCT PROTHROMBIN TIME Routine 12/01/2024 11:06 PM CDT POCT PARTIAL THROMBOPLASTIN TIME (PTT) Routine 12/01/2024 11:06 PM CDT POC BLOOD GAS AND CHEMISTRIES, ARTERIAL Routine 12/01/2024 11:05 PM CDT POCT PLATELET COUNT AND HEMATOCRIT Routine 12/01/2024 11:04 PM CDT POCT HEPARIN/ACT CPB Routine 12/01/2024 10:03 PM CDT POC BLOOD GAS AND CHEMISTRIES, ARTERIAL Routine 12/01/2024 9:57 PM CDT FIBRINOGEN STAT 12/01/2024 9:57 PM CDT POCT HEPARIN/ACT CPB Routine 12/01/2024 9:30 PM CDT POC BLOOD GAS AND CHEMISTRIES, ARTERIAL Routine 12/01/2024 9:23 PM CDT POCT HEPARIN/ACT CPB Routine 12/01/2024 8:59 PM CDT POC BLOOD GAS AND CHEMISTRIES, ARTERIAL Routine 12/01/2024 8:53 PM CDT SURGICAL PATHOLOGY Routine 12/01/2024 8: 30 PM CDT Severe aortic stenosis POCT HEPARIN/ACT CPB Routine 12/01/2024 8:29 PM CDT POC BLOOD GAS AND CHEMISTRIES, ARTERIAL Routine 12/01/2024 8:23 PM CDT POCT HEPARIN/ACT CPB Routine 12/01/2024 8:04 PM CDT POC BLOOD GAS AND CHEMISTRIES, ARTERIAL Routine 12/01/2024 7:58 PM CDT POCT HEPARIN/ACT CPB Routine 12/01/2024 7:33 PM CDT POC BLOOD GAS AND CHEMISTRIES, ARTERIAL Routine 12/01/2024 7:26 PM CDT POCT HEPARIN/ACT CPB Routine 12/01/2024 7:02 PM CDT POC BLOOD GAS AND CHEMISTRIES, ARTERIAL Routine 12/01/2024 6:59 PM CDT POC BLOOD GAS AND CHEMISTRIES, ARTERIAL Routine 12/01/2024 6:26 PM CDT ANESTHESIA CENTRAL VENOUS LINE PLACEMENT Routine 12/01/2024 6:15 PM CDT ANESTHESIA CENTRAL VENOUS LINE PLACEMENT Routine 12/01/2024 6:14 PM CDT ANESTHESIA INTUBATION Routine 12/01/2024 6:12 PM CDT POCT HEPARIN DOSE RESPONSE, CPB Routine 12/01/2024 5:22 PM CDT AL AN PROCEDURE PLACEHOLDER Routine 12/01/2024 5:20 PM CDT AL AN PROCEDURE PLACEHOLDER Routine 12/01/2024 5:16 PM CDT POC BLOOD GAS AND CHEMISTRIES, ARTERIAL Routine 12/01/2024 5:13 PM CDT CLOSURE STERNAL - WITH PLATES 12/01/2024 3:51 PM CDT Severe aortic stenosis Case Notes 11/16@0859: Sent case msg to Antoine about missing CTC time. SR ENDOSCOPIC VESSEL HARVEST 12/01/2024 3:51 PM CDT Severe aortic stenosis Case Notes 11/16@0859: Sent case msg to Antoine about missing CTC time. SR REPLACEMENT AORTIC VALVE. 12/01/2024 3:51 PM CDT Severe aortic stenosis Case Notes 11/16@0859: Sent case msg to Antoine about missing CTC time. SR CORONARY ARTERY BYPASS GRAFT WITH PUMP 12/01/2024 3:51 PM CDT Severe aortic stenosis Case Notes 11/16@0859: Sent case msg to Antoine about missing CTC time. SR CITLALY ADD-ON FOR OR Routine 12/01/2024 3:1 2 PM CDT POCT GLUCOSE DEVICE Routine 12/01/2024 3 :07 PM CDT POC BLOOD GAS AND CHEMISTRIES, ARTERIAL Routine 12/01/2024 1:41 PM CDT B CHECK SAMPLE STAT 12/01/2024 1:32 PM CDT PREPARE RBC Timed 12/01/2024 1:13 PM CDT CPAP APTT ALGORITHM Routine 11/22/2024 2 :58 PM CDT Preoperative testing TYPE AND SCREEN 14 DAY Routine 2:58 PM CDT Preoperative testing URINALYSIS AND REFLEX TO MICROSCOPIC AND CULTURE Routine 11/22/2024 2:58 PM CDT Preoperative testing CORONARY FLOW VELOCITY (CFR) / INSTATANEOUS FLOW VELOCITY (IFR), EA ADDTN'L VESSEL Routine 11/15/2024 11:08 AM CDT Nonrheumatic aortic valve stenosis Chest pain, unspecified type LEFT HEART CATHETERIZATION WITH CORONARY ANGIOGRAPHY AND WITH AND WITHOUT LEFT VENTRICULOGRAM Routine 11/15/2024 11:08 AM CDT Nonrheumatic aortic valve stenosis Chest pain, unspecified type CORONARY FLOW VELOCITY (CFR) / INSTATANEOUS FLOW VELOCITY (IFR), 1ST VESSEL Routine 11/15/2024 11:08 AM CDT Nonrheumatic aortic valve stenosis Chest pain, unspecified type POCT ACTIVATED CLOTTING TIME, LOW RANGE Routine 11/15/2024 11:00 AM CDT POCT ACTIVATED CLOTTING TIME, LOW RANGE Routine 11/15/2024 10:42 AM CDT CBC WITHOUT DIFFERENTIAL Routine 11/15/2024 10:00 AM CDT POC BLOOD GAS AND CHEMISTRIES, ARTERIAL Routine 11/15/2024 8:06 AM CDT POC BLOOD GAS AND CHEMISTRIES, ARTERIAL Routine 11/15/2024 7:50 AM CDT EGFR Routine 11/08/2024 3:34 PM CDT Nonrheumatic aortic valve stenosis DIFFERENTIAL AUTO Routine 11/08/2024 3:3 4 PM CDT Nonrheumatic aortic valve stenosis CRP, HIGH SENSITIVITY Routine 11/08/2024 3:34 PM CDT Nonrheumatic aortic valve stenosis PROTIME-INR Routine 11/08/2024 3:34 PM CDT Nonrheumatic aortic valve stenosis HEMOGLOBIN A1C Routine 11/08/2024 3:34 PM CDT Nonrheumatic aortic valve stenosis Abnormal finding of blood chemistry, unspecified LIPOPROTEIN A (LPA) Routine 11/08/2024 3 :34 PM CDT Nonrheumatic aortic valve stenosis History of heart valve abnormality CBC WITH AUTO DIFFERENTIAL Routine 11/08/2024 3:34 PM CDT Nonrheumatic aortic valve stenosis COMPREHENSIVE METABOLIC PANEL Routine 11/08/2024 3:34 PM CDT Nonrheumatic aortic valve stenosis PRO B-TYPE NATRIURETIC PEPTIDE Routine 11/08/2024 3:34 PM CDT Nonrheumatic aortic valve stenosis ECG 12-LEAD Routine 11/08/2024 2:22 PM CDT Hyperlipidemia associated with type 2 diabetes mellitus (HCC) CT TAVR Schedule Routine, Read Routine (OP Routine) 11/08/2024 10:55 AM CDT Nonrheumatic aortic valve stenosis POC ISTAT Routine 11/08/2024 10:42 AM CDT from Last 3 Months Results * TRANSTHORACIC ECHO (TTE) COMPLETE W DOPPLER/CF W CONTRAST (01/31/2025 3:30 PM CDT) EF Mod BP 56 % CONS SCIMAGE Anatomical Region Laterality Modality Ultrasound 01/31/2025 2:24 PM CDT Narrative 02/01/2025 9:11 AM CDT [facility] [place] [address] Transthoracic Echocardiographic Report Patient Name: JAI MEIER W : 1945 (79y 6m) Sex: M Study Date: 01/31/2025 02:24:56 PM Ht(Inch): 70 Wt(Lb): 283.07 BSA: 2.52 Director Medical Writing: Maris Baltazar RDCS Location: [facility] Order Provider: MEÑO CHANDRA Heart Rate: 60 [...] Note Ashu Hammond MD PhD - 02/01/2025 [facility] [place] [place] [address] Transthoracic Echocardiographic Report Patient Name: JAI MEIER W : 1945 (79y 6m) Sex: M Study Date: 01/31/2025 02:24:56 PM Ht(Inch): 70 Wt(Lb): 283.07 BSA: 2.52 Director Medical Writing: Maris Baltazar RDCS Location: [facility] Order Provider:MEÑO CHANDRA Heart Rate: 60 BMI: [...] [ 52 - 72 ] MV Decel Puzt421.51 msec [ 104.00 - 258.00 ] LV [...] Ashu Hammond M.D. 02/01/2025 9:10:48 AM CDT us Meño Chandra MD CV ECHO PROCEDURES F inal Result * CTA Chest W Contrast (01/31/2025 10:11 [...] it. Electronically signed by: Canelo Loza M.D. us Meño Chandra MD IMG CT PROCEDURES Fi nal Result * (ABNORMAL) POCT glucose (01/12/2025 11:43 AM CDT) Glucose, POC 235(H) 70 - 199 mg/dL Blood 01/12/2025 11:4 3 AM CDT 01/12/2025 11:43 AM CDT Meño Chandra MD LAB POCT ORDERABLES - DEVICE Final Result Performing Organization Address [facility] de Phone Number [facility] Department [place] [place] [address] * POCT glucose (01/12/2025 8:24 AM CDT) Glucose, POC 118 70 - 199 mg/dL Blood 01/12/2025 8:24 AM CDT 01/12/2025 8:24 AM CDT Result [facility] Meño Chandra MD LAB POCT ORDERABLES - DEVICE Final Result Performing Organization Address [facility] Co de Phone Number [facility] [place] [employer] [place] [address] * POCT glucose (01/11/2025 7:58 PM CDT) Glucose, POC 167 70 - 199 mg/dL Blood 01/11/2025 7:58 PM CDT 01/11/2025 7:58 PM CDT Meño Chandra MD LAB POCT ORDERABLES - DEVICE Final Result Performing Organization Address [facility]/ZIP Co de Phone Number [facility] [place] [address] * POCT glucose (01/11/2025 5:05 PM CDT) Glucose, POC 162 70 - 199 mg/dL Blood 01/11/2025 5:05 PM CDT 01/11/2025 5:05 PM CDT Meño Chandra MD LAB POCT ORDERABLES - DEVICE Final Result Performing Organization Address [facility] [place] [address] * (ABNORMAL) POCT glucose (01/11/2025 12:05 PM CDT) Glucose, POC 242(H) 70 - 199 mg/dL Blood 01/11/2025 12:0 5 PM CDT 01/11/2025 12:05 PM CDT Meño Chandra MD LAB POCT ORDERABLES - DEVICE Final Result Performing Organization Address [facility] Co de Phone Number [facility] [place] [place] [address] * (ABNORMAL) POCT glucose (01/11/2025 8:02 AM CDT) Glucose, POC 203(H) 70 - 199 mg/dL Blood 01/11/2025 8:02 AM CDT 01/11/2025 8:02 AM CDT Meño Chandra MD LAB POCT ORDERABLES - DEVICE Final Result Performing Organization Address City/[facility] Co de Phone Number [facility] [place] [address] * POCT glucose (01/10/2025 9:13 PM CDT) Glucose, POC 195 70 - 199 mg/dL Blood 01/10/2025 9:13 PM CDT 01/10/2025 9:13 PM CDT Meño Chandra MD LAB POCT ORDERABLES - DEVICE Final Result Performing Organization Address [facility] Co de Phone Number [facility] [place] [place] [address] * POCT glucose (01/10/2025 5:36 PM CDT) Glucose, POC 193 70 - 199 mg/dL Blood 01/10/2025 5:36 PM CDT 01/10/2025 5:36 PM CDT Meño Chandra MD LAB POCT ORDERABLES - DEVICE Final Result Performing Organization Address [facility] de Phone Number [facility] [place] [place] [address] * (ABNORMAL) POCT glucose (01/10/2025 11:44 AM CDT) Glucose, POC 263(H) 70 - 199 mg/dL Blood 01/10/2025 11:4 4 AM CDT 01/10/2025 11:44 AM CDT Meño Chandra MD LAB POCT ORDERABLES - DEVICE Final Result Performing Organization Address City/[facility] Co de Phone Number [facility] [place] [place] [address] * POCT glucose (01/10/2025 7:47 AM CDT) Glucose, POC 184 70 - 199 mg/dL Blood 01/10/2025 7:47 AM CDT 01/10/2025 7:47 AM CDT us Meño Chandra MD LAB POCT ORDERABLES - DEVICE Final Result Performing Organization Address City/[facility]/ZIP Co de Phone Number WANDA [facility] [place] [address] * ECG 12 lead (01/10/2025 6:08 AM CDT) Ventricular Rate EKG/Min 63 BPM [facility] Atrial Rate 63 BPM [facility] AL-Interval (MSEC) 276 ms [facility] QRS-Interval (MSEC) 86 ms [facility] QT-Interval (MSEC) 528 ms [facility] QTc 540 ms [facility] P Zalma 69 degrees [facility] R Zalma 9 degrees [facility] T [place]al[place] 93 degrees [facility] Diagnosis Atrial-paced rhythm with prolonged AV conduction with occasional Premature ventricular complexes Inferior infarct , possibly acute Prolonged QT Consider right ventricular involvement in acute inferior infarct Abnormal ECG When compared with ECG of 10-JAN-2025 06:07, (unconfirmed) Premature ventricular complexes are now Present Premature supraventricular complexes are no longer Present QT has shortened Confirmed by SILAS CARLIN M.D ([id number]) on 01/11/2025 11:43:39 AM [facility] 01/10/2025 6:08 AM CDT 01/11/2025 11:43 AM CDT us Radha Almonte NP ECG ORDERABLES Final Resu lt [facility] * ECG 12 lead (01/10/2025 6:07 AM CDT) Ventricular Rate EKG/Min 62 BPM [facility] Atrial Rate 62 BPM [facility] AL-Interval (MSEC) 278 ms [facility] QRS-Interval (MSEC) 94 ms [facility] QT-Interval (MSEC) 582 ms [facility] QTc 590 ms [facility] P Zalma 71 degrees [facility] R [place] 2 degrees [facility] T [place] 93 degrees [facility] Diagnosis Atrial-paced rhythm with prolonged AV conduction with Premature supraventricular complexes Nonspecific T wave abnormality Abnormal ECG When compared with ECG of 10-JAN-2025 06:07, (unconfirmed) Premature supraventricular complexes are now Present QT has lengthened Confirmed by SILAS CARLIN M.D ([id number]) on 01/10/2025 5:45:46 PM [facility] 01/10/2025 6:07 AM CDT 01/10/2025 5:45 PM CDT Radha Almonte CLAIM BENEFIT SPECIALIST ECG ORDERABLES Final Resu lt Performing Organization Address [facility] Co de Phone Number [facility] * ECG 12 lead (01/10/2025 6:07 AM CDT) Ventricular Rate EKG/Min 60 BPM [facility] Atrial Rate 60 BPM [facility] AL-Interval (MSEC) 276 ms [facility] QRS-Interval (MSEC) 90 ms [facility] QT-Interval (MSEC) 526 ms [facility] QTc 526 ms [facility] P Zalma 71 degrees [facility] R Zalma 6 degrees [facility] T Zalma 94 degrees [facility] Diagnosis Atrial-paced rhythm with prolonged AV conduction Inferior infarct (cited on or before 10-JAN-2025) Prolonged QT Consider right ventricular involvement in acute inferior infarct Abnormal ECG When compared with ECG of 10-JAN-2025 06:06, (unconfirmed) Aberrant conduction is no longer Present Confirmed by SILAS CARLIN M.D ([id number]) on 01/10/2025 5:46:47 PM [facility] 01/10/2025 6:07 AM CDT 01/10/2025 5:46 PM CDT us Radha Almonte CLAIM BENEFIT SPECIALIST ECG ORDERABLES Final Resu lt Performing Organization Address City/[facility]/ZIP Co de Phone Number [facility] * ECG 12 lead (01/10/2025 6:06 AM CDT) Ventricular Rate EKG/Min 66 BPM [facility] Atrial Rate 66 BPM [facility] AL-Interval (MSEC) 270 ms [facility] QRS-Interval (MSEC) 96 ms [facility] QT-Interval (MSEC) 510 ms [facility] QTc 534 ms [facility] P Zalma 68 degrees [facility] R Zalma 3 degrees [facility] T Zalma 93 degrees [facility] Diagnosis Atrial-paced rhythm with prolonged AV conduction with Premature atrial complexes with Aberrant conduction Inferior infarct , age undetermined Prolonged QT Abnormal ECG When compared with ECG of 09-JAN-2025 06:00, Aberrant conduction is now Present Confirmed by SILAS CARLIN M.D ([id number]) on 01/10/2025 5:46:07 PM [facility] 01/10/2025 6:06 AM CDT 01/10/2025 5:46 PM CDT Radha Almonte CLAIM BENEFIT SPECIALIST ECG ORDERABLES Final Resu lt Performing Organization Address [facility]/ZIP Co de Phone Number [facility] * (ABNORMAL) POCT glucose (01/09/2025 8:13 PM CDT) Glucose, POC 284(H) 70 - 199 mg/dL Blood 01/09/2025 8:13 PM CDT 01/09/2025 8:13 PM CDT Meño Chandra MD LAB POCT ORDERABLES - DEVICE Final Result Performing Organization Address [facility] Co de Phone Number [facility] Department [place] [address] * (ABNORMAL) POCT glucose (01/09/2025 4:56 PM CDT) Glucose, POC 286(H) 70 - 199 mg/dL Blood 01/09/2025 4:56 PM CDT 01/09/2025 4:56 PM CDT Meño Chandra MD LAB POCT ORDERABLES - DEVICE Final Result Performing Organization Address [facility]/ZIP Co de Phone Number [facility] [place] [address] * (ABNORMAL) POCT glucose (01/09/2025 11:47 AM CDT) Glucose, POC 281(H) 70 - 199 mg/dL Blood 01/09/2025 11:4 7 AM CDT 01/09/2025 11:47 AM CDT us Meño Chandra MD LAB POCT ORDERABLES - DEVICE Final Result Performing Organization Address [facility] Co de Phone Number [facility] [place] [address] * (ABNORMAL) eGFR (01/09/2025 9:07 AM CDT) Pathologist [facility] eGFR 38(L) >=60 mL/min/1. 73 m2 Comment: Interpretive Data Reference Interval Normal >/= 90 mL/min/1.73m2 Mildly decreased* 60 - 89 mL/min/1.73m2 Mildly to moderately decreased 45 - 59 mL/min/1.73m2 Moderately to severely decreased 30 - 44 mL/min/1.73m2 Severely decreased 15 - 29 mL/min/1.73m2 Kidney Failure < 15 mL/min/1.73m2 *Relative to young adult level Estimated glomerular filtration rate is determined by the 2020 CKD-EPI equation recommended by the National Kidney Foundation (A Unifying Approach to GFR Estimation: Recommendations of the NKF-ASK Task Force on Reassessing the Inclusion of Race in Diagnosing Kidney Disease, JASN 2020). The CKD-EPI equation should not be used for patients with unstable renal function and has not been validated in children and those over 70. Current interpretive data was last reviewed 2021. Blood 01/09/2025 9:07 AM CDT 01/09/2025 9:19 AM CDT us Radha Almonte NP LAB BLOOD ORDERABLES Final Result Performing Organization Address City/[facility]/ZIP Co de Phone Number [facility] Department [place] [address] * (ABNORMAL) CBC without differential (01/09/2025 9:07 AM CDT) Pathologist [facility] WBC 7.87 3.80 - 9.90 K/cumm Hgb 10.4(L) 13.0 - 17.5 g/dL [facility] Hct 31.5(L) 38.9 - 50.3 % [facility] Plt 330 150 - 400 K/cumm [facility] MPV 9.8 9.1 - 12.3 fL [facility] RBC 3.44(L) 4.30 - 5.80 M/cumm [facility] MCV 91.6 81.3 - 96.4 fL [facility] MCH 30.2 27.1 - 33.3 pg [facility] MCHC 33.0 32.3 - 35.7 g/dL [facility] RDW CV 15.2(H) 11.1 - 14.9 % [facility] RDW SD 50.5(H) 35.7 - 48.1 fL [facility] NRBC abs 0.00 0.00 - 0.01 K/cumm [facility] Blood 01/09/2025 9:07 AM CDT 01/09/2025 9:19 AM CDT us Radha Almonte CLAIM BENEFIT SPECIALIST LAB BLOOD ORDERABLES Final Result Performing Organization Address [facility] Co de Phone Number [facility] Department [place] [address] * Phosphorus (01/09/2025 9:07 AM CDT) [facility] Phosphorus, pl 3.2 2.3 - 4.5 mg/dL Blood 01/09/2025 9:07 AM CDT 01/09/2025 9:19 AM CDT Radha Almonte CLAIM BENEFIT SPECIALIST LAB BLOOD ORDERABLES Final Result Performing Organization Address City/State/[facility] Co de Phone Number [facility] Department [place] [place] [address] * Magnesium (01/09/2025 9:07 AM CDT) [facility] Magnesium 2.1 1.4 - 2.5 mg/dL Blood 01/09/2025 9:07 AM CDT 01/09/2025 9:19 AM CDT Radha Almonte CLAIM BENEFIT SPECIALIST LAB BLOOD ORDERABLES Final Result Performing Organization Address [facility] [place] [address] * (ABNORMAL) Hepatic function panel (01/09/2025 9:07 AM CDT) [facility] Bilirubin, total 0.2 0.1 - 1.2 mg/dL Bilirubin, direct <0.2 0.1 - 0.3 mg/dL [facility] Protein, pl 6.5 6.5 - 8.5 g/dL [facility] Albumin 3.1(L) 3.5 - 5.0 g/dL [facility] Alk phos 104 40 - 130 Units/L [facility] ALT 384(H) 7 - 55 Units/L [facility] AST 184(H) 10 - 50 Units/L [facility] Blood 01/09/2025 9:07 AM CDT 01/09/2025 9:19 AM CDT Radha Almonte CLAIM BENEFIT SPECIALIST LAB BLOOD ORDERABLES Final Result Performing Organization Address [facility] Co de Phone Number [facility] [place] [place] [address] * (ABNORMAL) Basic metabolic panel (01/09/2025 9:07 AM CDT) [facility] Sodium 142 135 - 145 mmol/L Potassium, pl 4.0 3.3 - 4.9 mmol/L [facility] Chloride 101 97 - 110 mmol/L [facility] CO2 32 22 - 32 mmol/L [facility] Anion gap 9 2 - 15 mmol/L [facility] BUN 48(H) 6 - 25 mg/dL [facility] Creatinine 1.82(H) 0.80 - 1.30 mg/dL [facility] Glucose 256(H) 70 - 199 mg/dL [facility] Comment: Interpretive Data Fasting glucose >/= 126 mg/dl is diagnostic for diabetes. Fasting is defined as no caloric intake for at least 8 hours. Fasting glucose between 100 mg/dl to 125 mg/dl is diagnostic of prediabetes. In a patient with classic symptoms of hyperglycemia or hyperglycemic crisis, a random glucose >/= 200 mg/dl is diagnostic for diabetes. In the absence of unequivocal hyperglycemia, results should be confirmed by repeat testing. The classification and Diagnosis of Diabetes Diabetes Care 2021; 46: S19-S40. Current interpretive data was last revised 2022. Calcium 8.8 8.5 - 10.3 mg/dL [facility] Blood 01/09/2025 9:07 AM CDT 01/09/2025 9:19 AM CDT us Radha Almonte NP LAB BLOOD ORDERABLES Final Result [facility] Department [place] [address] * POCT glucose (01/09/2025 7:57 AM CDT) [facility] Signature Glucose, POC 178 70 - 199 mg/dL Blood 01/09/2025 7:57 AM CDT 01/09/2025 7:57 AM CDT us Meño Chandra MD LAB POCT ORDERABLES - DEVICE Final Result [facility] Department [place] [address] * ECG 12 lead (01/09/2025 6:00 AM CDT) [facility] Ventricular Rate EKG/Min 60 BPM [facility] Atrial Rate 60 BPM [facility] AL-Interval (MSEC) 282 ms [facility] QRS-Interval (MSEC) 100 ms [facility] QT-Interval (MSEC) 518 ms [facility] QTc 518 ms [facility] P Zalma 77 degrees [facility] R Zalma 0 degrees [facility] T Zalma 103 degrees [facility] Diagnosis Atrial-paced rhythm with prolonged AV conduction Nonspecific ST and T wave abnormality Prolonged QT Abnormal ECG When compared with ECG of 07-JAN-2025 11:35, (unconfirmed) Electronic atrial pacemaker has replaced Sinus rhythm T wave inversion less evident in Anterior leads Confirmed by SILAS CARLIN M.D ([id number]) on 01/09/2025 12:16:28 PM [facility] 01/09/2025 6:00 AM CDT 01/09/2025 12:16 PM CDT us Radha Almonte CLAIM BENEFIT SPECIALIST ECG ORDERABLES Final Resu lt [facility] * POCT glucose (01/08/2025 8:31 PM CDT) [facility] Glucose, POC 186 70 - 199 mg/dL Blood 01/08/2025 8:31 PM CDT 01/08/2025 8:31 PM CDT us Meño Chandra MD LAB POCT ORDERABLES - DEVICE Final Result [facility] Department [place] [address] * (ABNORMAL) POCT glucose (01/08/2025 5:06 PM CDT) [facility] Glucose, POC 221(H) 70 - 199 mg/dL Blood 01/08/2025 5:06 PM CDT 01/08/2025 5:06 PM CDT Meño Chandra MD LAB POCT ORDERABLES - DEVICE Final Result [facility] [place] [address] * (ABNORMAL) POCT glucose (01/08/2025 12:20 PM CDT) Glucose, POC 290(H) 70 - 199 mg/dL Blood 01/08/2025 12:2 0 PM CDT 01/08/2025 12:20 PM CDT Meño Chandra MD LAB POCT ORDERABLES - DEVICE Final Result Performing Organization Address City/[facility] Co de Phone Number WANDA RODRIGUES [facility] [place] [address] * (ABNORMAL) eGFR (01/08/2025 11:38 AM CDT) eGFR 35(L) >=60 mL/min/1. 73 m2 Comment: Interpretive Data Reference Interval Normal >/= 90 mL/min/1.73m2 Mildly decreased* 60 - 89 mL/min/1.73m2 Mildly to moderately decreased 45 - 59 mL/min/1.73m2 Moderately to severely decreased 30 - 44 mL/min/1.73m2 Severely decreased 15 - 29 mL/min/1.73m2 Kidney Failure < 15 mL/min/1.73m2 *Relative to young adult level Estimated glomerular filtration rate is determined by the 2020 CKD-EPI equation recommended by the National Kidney Foundation (A Unifying Approach to GFR Estimation: Recommendations of the NKF-ASK Task Force on Reassessing the Inclusion of Race in Diagnosing Kidney Disease, JASN 2020). The CKD-EPI equation should not be used for patients with unstable renal function and has not been validated in children and those over 70. Current interpretive data was last reviewed 2021. Blood 01/08/2025 11:3 8 AM CDT 01/08/2025 11:44 AM CDT us Jinny Simms CLAIM BENEFIT SPECIALIST LAB BLOOD ORDERABLES Final Re sult [facility] Department [place] [address] * (ABNORMAL) Comprehensive metabolic panel (01/08/2025 11:38 AM CDT) Sodium 140 135 - 145 mmol/L Potassium, pl 3.7 3.3 - 4.9 mmol/L [facility] Comment:Repeated and Verifie d Chloride 98 97 - 110 mmol/L [facility] CO2 32 22 - 32 mmol/L [facility] Anion gap 10 2 - 15 mmol/L [facility] BUN 49(H) 6 - 25 mg/dL [facility] Creatinine 1.94(H) 0.80 - 1.30 mg/dL [facility] Glucose 259(H) 70 - 199 mg/dL [facility] Comment: Interpretive Data Fasting glucose >/= 126 mg/dl is diagnostic for diabetes. Fasting is defined as no caloric intake for at least 8 hours. Fasting glucose between 100 mg/dl to 125 mg/dl is diagnostic of prediabetes. In a patient with classic symptoms of hyperglycemia or hyperglycemic crisis, a random glucose >/= 200 mg/dl is diagnostic for diabetes. In the absence of unequivocal hyperglycemia, results should be confirmed by repeat testing. The classification and Diagnosis of Diabetes Diabetes Care 202; 46: S19-S40. Current interpretive data was last revised 2022. Calcium 8.9 8.5 - 10.3 mg/dL [facility] Bilirubin, total 0.2 0.1 - 1.2 mg/dL [facility] Protein, pl 6.3(L) 6.5 - 8.5 g/dL [facility] Albumin 3.0(L) 3.5 - 5.0 g/dL [facility] Alk phos 97 40 - 130 Units/L [facility] ALT 303(H) 7 - 55 Units/L [facility] Comment:Reviewed AST 156(H) 10 - 50 Units/L [facility] Comment:Reviewed Blood 01/08/2025 11:3 8 AM CDT 01/08/2025 11:44 AM CDT Jinny Simms CLAIM BENEFIT SPECIALIST LAB BLOOD ORDERABLES Final Re sult Performing Organization Address City/[facility] Co de Phone Number WANDA [facility] Department [place] [address] * (ABNORMAL) eGFR (01/08/2025 9:09 AM CDT) Pathologist [facility] eGFR 42(L) >=60 mL/min/1. 73 m2 Comment: Interpretive Data Reference Interval Normal >/= 90 mL/min/1.73m2 Mildly decreased* 60 - 89 mL/min/1.73m2 Mildly to moderately decreased 45 - 59 mL/min/1.73m2 Moderately to severely decreased 30 - 44 mL/min/1.73m2 Severely decreased 15 - 29 mL/min/1.73m2 Kidney Failure < 15 mL/min/1.73m2 *Relative to young adult level Estimated glomerular filtration rate is determined by the 2020 CKD-EPI equation recommended by the National Kidney Foundation (A Unifying Approach to GFR Estimation: Recommendations of the NKF-ASK Task Force on Reassessing the Inclusion of Race in Diagnosing Kidney Disease, JASN 2020). The CKD-EPI equation should not be used for patients with unstable renal function and has not been validated in children and those over 70. Current interpretive data was last reviewed 2021. Blood 01/08/2025 9:09 AM CDT 01/08/2025 9:34 AM CDT us Jinny Simms CLAIM BENEFIT SPECIALIST LAB BLOOD ORDERABLES Final Re sult Performing Organization Address City/[facility]/ZIP Co de Phone Number WANDA [facility] Department [place] [address] * Differential, auto (01/08/2025 9:09 AM CDT) Pathologist [facility] Neutrophil abs 4.21 1.50 - 6.50 K/cumm Imm gran abs 0.02 0.00 - 0.10 K/cumm [facility] Lymphocyte abs 1.63 0.80 - 3.30 K/cumm [facility] Monocyte abs 0.77 0.20 - 0.80 K/cumm [facility] Eosinophil abs 0.16 0.00 - 0.50 K/cumm [facility] Basophil abs 0.05 0.00 - 0.10 K/cumm [facility] Neutrophil pct 61.6 % [facility] Comment: Interpretive Data Percent cell count reference ranges are not reported, since discordance with absolute values may lead to misinterpretation of CBC data. Current Interpretive Data was last revised on 2017. Imm gran pct 0.3 % [facility] Comment: Interpretive Data Percent cell count reference ranges are not reported, since discordance with absolute values may lead to misinterpretation of CBC data. Current Interpretive Data was last revised on 2017. Lymphocyte pct 23.8 % [facility] Comment: Interpretive Data Percent cell count reference ranges are not reported, since discordance with absolute values may lead to misinterpretation of CBC data. Current Interpretive Data was last revised on 2017. Monocyte pct 11.3 % [facility] Comment: Interpretive Data Percent cell count reference ranges are not reported, since discordance with absolute values may lead to misinterpretation of CBC data. Current Interpretive Data was last revised on 2017. Eosinophil pct 2.3 % [facility] Comment: Interpretive Data Percent cell count reference ranges are not reported, since discordance with absolute values may lead to misinterpretation of CBC data. Current Interpretive Data was last revised on 2017. Basophil pct 0.7 % [facility] Comment: Interpretive Data Percent cell count reference ranges are not reported, since discordance with absolute values may lead to misinterpretation of CBC data. Current Interpretive Data was last revised on 2017. Blood 01/08/2025 9:09 AM CDT 01/08/2025 9:34 AM CDT us Jinny Simms NP LAB BLOOD ORDERABLES Final Re sult [facility] One [facility] [place] [address] * (ABNORMAL) CBC with auto differential (01/08/2025 9:09 AM CDT) [facility] WBC 6.84 3.80 - 9.90 K/cumm Hgb 9.9(L) 13.0 - 17.5 g/dL [facility] Hct 31.0(L) 38.9 - 50.3 % [facility] Plt 215 150 - 400 K/cumm [facility] MPV 10.7 9.1 - 12.3 fL [facility] RBC 3.36(L) 4.30 - 5.80 M/cumm [facility] MCV 92.3 81.3 - 96.4 fL [facility] MCH 29.5 27.1 - 33.3 pg [facility] MCHC 31.9(L) 32.3 - 35.7 g/dL [facility] RDW CV 15.3(H) 11.1 - 14.9 % [facility] RDW SD 51.5(H) 35.7 - 48.1 fL [facility] NRBC abs 0.00 0.00 - 0.01 K/cumm [facility] Blood 01/08/2025 9:09 AM CDT 01/08/2025 9:34 AM CDT us Jinny Simms NP LAB BLOOD ORDERABLES Final Re sult [facility] One [facility] [place] [address] * (ABNORMAL) Comprehensive metabolic panel (01/08/2025 9:09 AM CDT) [facility] Sodium 139 135 - 145 mmol/L Potassium, pl See Comment 3.3 - 4.9 mmol/L [facility] Comment:Credited; Hemolyzed Specimen Chloride 98 97 - 110 mmol/L [facility] CO2 31 22 - 32 mmol/L [facility] Anion gap 10 2 - 15 mmol/L [facility] BUN 47(H) 6 - 25 mg/dL [facility] Creatinine 1.68(H) 0.80 - 1.30 mg/dL [facility] Glucose 182 70 - 199 mg/dL [facility] Comment: Interpretive Data Fasting glucose >/= 126 mg/dl is diagnostic for diabetes. Fasting is defined as no caloric intake for at least 8 hours. Fasting glucose between 100 mg/dl to 125 mg/dl is diagnostic of prediabetes. In a patient with classic symptoms of hyperglycemia or hyperglycemic crisis, a random glucose >/= 200 mg/dl is diagnostic for diabetes. In the absence of unequivocal hyperglycemia, results should be confirmed by repeat testing. The classification and Diagnosis of Diabetes Diabetes Care 2021; 46: S19-S40. Current interpretive data was last revised 2022. Calcium 8.8 8.5 - 10.3 mg/dL [facility] Bilirubin, total 0.3 0.1 - 1.2 mg/dL [facility] Protein, pl 6.6 6.5 - 8.5 g/dL [facility] Albumin 2.8(L) 3.5 - 5.0 g/dL [facility] Alk phos 94 40 - 130 Units/L [facility] Comment:Hemolyzed; result ma y be falsely decreased ALT See Comment 7 - 55 Units/L [facility] Comment:Credited; Hemolyzed Specimen AST See Comment 10 - 50 Units/L [facility] Comment:Credited; Hemolyzed Specimen Blood 01/08/2025 9:09 AM CDT 01/08/2025 9:34 AM CDT us Jinny Simms NP LAB BLOOD ORDERABLES Final Re sult [facility] One [facility] Department [place] [address] * POCT glucose (01/08/2025 8:17 AM CDT) [facility] Glucose, POC 194 70 - 199 mg/dL Blood 01/08/2025 8:17 AM CDT 01/08/2025 8:17 AM CDT us Meño Chandra MD LAB POCT ORDERABLES - DEVICE Final Result Performing Organization Address [facility] Co de Phone Number [facility] [place] [place] [address] * POCT glucose (01/07/2025 8:06 PM CDT) Glucose, POC 130 70 - 199 mg/dL Blood 01/07/2025 8:06 PM CDT 01/07/2025 8:06 PM CDT us Meño Chandra MD LAB POCT ORDERABLES - DEVICE Final Result Performing Organization Address [facility] Co de Phone Number [facility] [place] [place] [address] * POCT glucose (01/07/2025 4:51 PM CDT) Glucose, POC 199 70 - 199 mg/dL Blood 01/07/2025 4:51 PM CDT 01/07/2025 4:51 PM CDT Meño Chandra MD LAB POCT ORDERABLES - DEVICE Final Result Performing Organization Address [facility] Co de Phone Number [facility] [place] [place] [address] * (ABNORMAL) POCT glucose (01/07/2025 12:00 PM CDT) Glucose, POC 359(H) 70 - 199 mg/dL Blood 01/07/2025 12:0 0 PM CDT 01/07/2025 12:00 PM CDT Meño Chandra MD LAB POCT ORDERABLES - DEVICE Final Result Performing Organization Address [facility] Co de Phone Number [facility] [place] [address] * ECG 12 lead (01/07/2025 11:35 AM CDT) [facility] Ventricular Rate EKG/Min 62 BPM [facility] Atrial Rate 62 BPM [facility] AL-Interval (MSEC) 152 ms [facility] QRS-Interval (MSEC) 100 ms [facility] QT-Interval (MSEC) 520 ms [facility] QTc 527 ms [facility] P Zalma 82 degrees [facility] R Zalma -4 degrees [facility] T Zalma 119 degrees [facility] Diagnosis Normal sinus rhythm atrial-paced complexes ST & T wave abnormality, consider anterolateral ischemia Prolonged QT Abnormal ECG When compared with ECG of 05-JAN-2025 07:04, Sinus rhythm has replaced Electronic atrial pacemaker Confirmed by SILAS CARLIN M.D ([id number]) on 01/09/2025 12:20:44 PM [facility] 01/07/2025 11:3 5 AM CDT 01/09/2025 12:20 PM CDT us Radha Almonte CLAIM BENEFIT SPECIALIST ECG ORDERABLES Final Resu lt [facility] * (ABNORMAL) POCT glucose (01/07/2025 8:08 AM CDT) Glucose, POC 254(H) 70 - 199 mg/dL Blood 01/07/2025 8:08 AM CDT 01/07/2025 8:08 AM CDT us Meño Chandra MD LAB POCT ORDERABLES - DEVICE Final Result [facility] Department [place] [address] * (ABNORMAL) POCT glucose (01/06/2025 8:17 PM CDT) Glucose, POC 231(H) 70 - 199 mg/dL Blood 01/06/2025 8:17 PM CDT 01/06/2025 8:17 PM CDT Meño Chandra MD LAB POCT ORDERABLES - DEVICE Final Result Performing Organization Address [facility] Co de Phone Number [facility] [place] [address] * POCT glucose (01/06/2025 4:49 PM CDT) Glucose, POC 195 70 - 199 mg/dL Blood 01/06/2025 4:49 PM CDT 01/06/2025 4:49 PM CDT Meño Chandra MD LAB POCT ORDERABLES - DEVICE Final Result Performing Organization Address [facility] de Phone Number [facility] Department [place] [address] * (ABNORMAL) POCT glucose (01/06/2025 11:42 AM CDT) Glucose, POC 310(H) 70 - 199 mg/dL Blood 01/06/2025 11:4 2 AM CDT 01/06/2025 11:42 AM CDT Meño Chandra MD LAB POCT ORDERABLES - DEVICE Final Result Performing Organization Address [facility] Co de Phone Number [facility] Department [place] [address] * POCT glucose (01/06/2025 7:29 AM CDT) Glucose, POC 198 70 - 199 mg/dL Blood 01/06/2025 7:29 AM CDT 01/06/2025 7:29 AM CDT Meño Chandra MD LAB POCT ORDERABLES - DEVICE Final Result Performing Organization Address [facility] Co de Phone Number [facility] Department [place] [address] * (ABNORMAL) eGFR (01/05/2025 9:16 PM CDT) [facility] eGFR 33(L) >=60 mL/min/1. 73 m2 Comment: Interpretive Data Reference Interval Normal >/= 90 mL/min/1.73m2 Mildly decreased* 60 - 89 mL/min/1.73m2 Mildly to moderately decreased 45 - 59 mL/min/1.73m2 Moderately to severely decreased 30 - 44 mL/min/1.73m2 Severely decreased 15 - 29 mL/min/1.73m2 Kidney Failure < 15 mL/min/1.73m2 *Relative to young adult level Estimated glomerular filtration rate is determined by the 2020 CKD-EPI equation recommended by the National Kidney Foundation (A Unifying Approach to GFR Estimation: Recommendations of the NKF-ASK Task Force on Reassessing the Inclusion of Race in Diagnosing Kidney Disease, JASN 2020). The CKD-EPI equation should not be used for patients with unstable renal function and has not been validated in children and those over 70. Current interpretive data was last reviewed 2021. Blood 01/05/2025 9:16 PM CDT 01/05/2025 9:32 PM CDT us Radha Almonte NP LAB BLOOD ORDERABLES Final Result [facility] Department [place] [address] * (ABNORMAL) CBC without differential (01/05/2025 9:16 PM CDT) [facility] WBC 8.48 3.80 - 9.90 K/cumm Hgb 9.4(L) 13.0 - 17.5 g/dL [facility] Hct 29.1(L) 38.9 - 50.3 % [facility] Plt 304 150 - 400 K/cumm [facility] MPV 9.8 9.1 - 12.3 fL [facility] RBC 3.09(L) 4.30 - 5.80 M/cumm [facility] MCV 94.2 81.3 - 96.4 fL [facility] MCH 30.4 27.1 - 33.3 pg [facility] MCHC 32.3 32.3 - 35.7 g/dL [facility] RDW CV 15.6(H) 11.1 - 14.9 % [facility] RDW SD 53.5(H) 35.7 - 48.1 fL [facility] NRBC abs 0.00 0.00 - 0.01 K/cumm [facility] Blood 01/05/2025 9:16 PM CDT 01/05/2025 9:32 PM CDT us Radha Almonte CLAIM BENEFIT SPECIALIST LAB BLOOD ORDERABLES Final Result Performing Organization Address [facility] Co de Phone Number [facility] Department [place] [place] [address] * Phosphorus (01/05/2025 9:16 PM CDT) Phosphorus, pl 3.1 2.3 - 4.5 mg/dL Blood 01/05/2025 9:16 PM CDT 01/05/2025 9:32 PM CDT us Radha Almonte CLAIM BENEFIT SPECIALIST LAB BLOOD ORDERABLES Final Result Performing Organization Address [facility] Co de Phone Number [facility] Department [place] [place] [address] * Magnesium (01/05/2025 9:16 PM CDT) Magnesium 2.3 1.4 - 2.5 mg/dL Blood 01/05/2025 9:16 PM CDT 01/05/2025 9:32 PM CDT us Radha Almonte CLAIM BENEFIT SPECIALIST LAB BLOOD ORDERABLES Final Result Performing Organization Address [facility] Co de Phone Number [facility] Department [place] [address] * (ABNORMAL) Hepatic function panel (01/05/2025 9:16 PM CDT) [facility] Bilirubin, total 0.2 0.1 - 1.2 mg/dL Bilirubin, direct <0.2 0.1 - 0.3 mg/dL [facility] Protein, pl 6.3(L) 6.5 - 8.5 g/dL [facility] Albumin 2.9(L) 3.5 - 5.0 g/dL [facility] Alk phos 90 40 - 130 Units/L [facility] ALT 316(H) 7 - 55 Units/L [facility] AST 222(H) 10 - 50 Units/L [facility] Blood 01/05/2025 9:16 PM CDT 01/05/2025 9:32 PM CDT Radha Almonte NP LAB BLOOD ORDERABLES Final Result [facility] [place] [address] * (ABNORMAL) Basic metabolic panel (01/05/2025 9:16 PM CDT) [facility] Sodium 140 135 - 145 mmol/L Potassium, pl 3.6 3.3 - 4.9 mmol/L [facility] Chloride 97 97 - 110 mmol/L [facility] CO2 34(H) 22 - 32 mmol/L [facility] Anion gap 9 2 - 15 mmol/L [facility] BUN 64(H) 6 - 25 mg/dL [facility] Creatinine 2.04(H) 0.80 - 1.30 mg/dL [facility] Glucose 297(H) 70 - 199 mg/dL [facility] Comment: Interpretive Data Fasting glucose >/= 126 mg/dl is diagnostic for diabetes. Fasting is defined as no caloric intake for at least 8 hours. Fasting glucose between 100 mg/dl to 125 mg/dl is diagnostic of prediabetes. In a patient with classic symptoms of hyperglycemia or hyperglycemic crisis, a random glucose >/= 200 mg/dl is diagnostic for diabetes. In the absence of unequivocal hyperglycemia, results should be confirmed by repeat testing. The classification and Diagnosis of Diabetes Diabetes Care 2021; 46: S19-S40. Current interpretive data was last revised 2022. Calcium 8.8 8.5 - 10.3 mg/dL [facility] Blood 01/05/2025 9:16 PM CDT 01/05/2025 9:32 PM CDT us Radha Almonte CLAIM BENEFIT SPECIALIST LAB BLOOD ORDERABLES Final Result [facility] [place] [place] [address] * (ABNORMAL) POCT glucose (01/05/2025 8:04 PM CDT) Glucose, POC 344(H) 70 - 199 mg/dL Blood 01/05/2025 8:04 PM CDT 01/05/2025 8:04 PM CDT Meño Chandra MD LAB POCT ORDERABLES - DEVICE Final Result Performing Organization Address [facility] Co de Phone Number [facility] Department [place] [place] [address] * (ABNORMAL) POCT glucose (01/05/2025 4:32 PM CDT) Glucose, POC 263(H) 70 - 199 mg/dL Blood 01/05/2025 4:32 PM CDT 01/05/2025 4:32 PM CDT Meño Chandra MD LAB POCT ORDERABLES - DEVICE Final Result Performing Organization Address [facility] Co de Phone Number [facility] Department [place] [place] [address] * (ABNORMAL) eGFR (01/05/2025 11:49 AM CDT) Pathologist [facility] eGFR 33(L) >=60 mL/min/1. 73 m2 Comment: Interpretive Data Reference Interval Normal >/= 90 mL/min/1.73m2 Mildly decreased* 60 - 89 mL/min/1.73m2 Mildly to moderately decreased 45 - 59 mL/min/1.73m2 Moderately to severely decreased 30 - 44 mL/min/1.73m2 Severely decreased 15 - 29 mL/min/1.73m2 Kidney Failure < 15 mL/min/1.73m2 *Relative to young adult level Estimated glomerular filtration rate is determined by the 2020 CKD-EPI equation recommended by the National Kidney Foundation (A Unifying Approach to GFR Estimation: Recommendations of the NKF-ASK Task Force on Reassessing the Inclusion of Race in Diagnosing Kidney Disease, JASN 2020). The CKD-EPI equation should not be used for patients with unstable renal function and has not been validated in children and those over 70. Current interpretive data was last reviewed 2021. Blood 01/05/2025 11:4 9 AM CDT 01/05/2025 11:59 AM CDT us Nellie Maldonado NP LAB BLOOD ORDERABLES Final Resul t [facility] [place] [address] * (ABNORMAL) Basic metabolic panel (01/05/2025 11:49 AM CDT) [facility] Sodium 138 135 - 145 mmol/L Potassium, pl 3.8 3.3 - 4.9 mmol/L [facility] Chloride 96(L) 97 - 110 mmol/L [facility] CO2 33(H) 22 - 32 mmol/L [facility] Anion gap 9 2 - 15 mmol/L [facility] BUN 59(H) 6 - 25 mg/dL [facility] Creatinine 2.04(H) 0.80 - 1.30 mg/dL [facility] Glucose 277(H) 70 - 199 mg/dL [facility] Comment: Interpretive Data Fasting glucose >/= 126 mg/dl is diagnostic for diabetes. Fasting is defined as no caloric intake for at least 8 hours. Fasting glucose between 100 mg/dl to 125 mg/dl is diagnostic of prediabetes. In a patient with classic symptoms of hyperglycemia or hyperglycemic crisis, a random glucose >/= 200 mg/dl is diagnostic for diabetes. In the absence of unequivocal hyperglycemia, results should be confirmed by repeat testing. The classification and Diagnosis of Diabetes Diabetes Care 2021; 46: S19-S40. Current interpretive data was last revised 2022. Calcium 8.8 8.5 - 10.3 mg/dL [facility] Blood 01/05/2025 11:4 9 AM CDT 01/05/2025 11:59 AM CDT Nellie Maldonado NP LAB BLOOD ORDERABLES Final Resul t Performing Organization Address [facility] de Phone Number [facility] Department [place] [address] * (ABNORMAL) POCT glucose (01/05/2025 11:27 AM CDT) Glucose, POC 323(H) 70 - 199 mg/dL Blood 01/05/2025 11:2 7 AM CDT 01/05/2025 11:27 AM CDT Meño Chandra MD LAB POCT ORDERABLES - DEVICE Final Result Performing Organization Address [facility] Co de Phone Number [facility] Department [place] [place] [address] * POCT glucose (01/05/2025 7:37 AM CDT) Glucose, POC 181 70 - 199 mg/dL Blood 01/05/2025 7:37 AM CDT 01/05/2025 7:37 AM CDT Meño Chandra MD LAB POCT ORDERABLES - DEVICE Final Result Performing Organization Address [facility]/ZIP Co de Phone Number [facility] Department [place] [address] * ECG 12 lead (01/05/2025 7:04 AM CDT) [facility] Ventricular Rate EKG/Min 66 BPM [facility] Atrial Rate 66 BPM [facility] AL-Interval (MSEC) 270 ms [facility] QRS-Interval (MSEC) 102 ms [facility] QT-Interval (MSEC) 520 ms [facility] QTc 545 ms [facility] P Zalma 55 degrees [facility] R Zalma -3 degrees [facility] T Zalma 116 degrees [facility] Diagnosis Atrial-paced rhythm with prolonged AV conduction with frequent Premature ventricular complexes ST & T wave abnormality, consider anterior ischemia Prolonged QT Abnormal ECG When compared with ECG of 03-JAN-2025 05:36, Premature ventricular complexes are now Present Premature supraventricular complexes are no longer Present Confirmed by SILAS CARLIN M.D ([id number]) on 01/05/2025 4:55:05 PM [facility] 01/05/2025 7:04 AM CDT 01/05/2025 4:55 PM CDT us Pelon Huggins MD PhD ECG ORDERABLES Fi nal Result Performing Organization Address [facility] de Phone Number [facility] * POCT glucose (01/04/2025 10:06 PM CDT) [facility] Glucose, POC 193 70 - 199 mg/dL Blood 01/04/2025 10:0 6 PM CDT 01/04/2025 10:06 PM CDT us Meño Chandra MD LAB POCT ORDERABLES - DEVICE Final Result Performing Organization Address [facility] Co de Phone Number [facility] [place] [address] * (ABNORMAL) eGFR (01/04/2025 8:27 PM CDT) [facility] eGFR 26(L) >=60 mL/min/1. 73 m2 Comment: Interpretive Data Reference Interval Normal >/= 90 mL/min/1.73m2 Mildly decreased* 60 - 89 mL/min/1.73m2 Mildly to moderately decreased 45 - 59 mL/min/1.73m2 Moderately to severely decreased 30 - 44 mL/min/1.73m2 Severely decreased 15 - 29 mL/min/1.73m2 Kidney Failure < 15 mL/min/1.73m2 *Relative to young adult level Estimated glomerular filtration rate is determined by the 2020 CKD-EPI equation recommended by the National Kidney Foundation (A Unifying Approach to GFR Estimation: Recommendations of the NKF-ASK Task Force on Reassessing the Inclusion of Race in Diagnosing Kidney Disease, JASN 2020). The CKD-EPI equation should not be used for patients with unstable renal function and has not been validated in children and those over 70. Current interpretive data was last reviewed 2021. Blood 01/04/2025 8:27 PM CDT 01/04/2025 9:35 PM CDT us Radha Almonte CLAIM BENEFIT SPECIALIST LAB BLOOD ORDERABLES Final Result [facility] [place] [address] * (ABNORMAL) CBC without differential (01/04/2025 8:27 PM CDT) [facility] WBC 8.29 3.80 - 9.90 K/cumm Hgb 9.8(L) 13.0 - 17.5 g/dL [facility] Hct 30.7(L) 38.9 - 50.3 % [facility] Plt 300 150 - 400 K/cumm [facility] MPV 10.3 9.1 - 12.3 fL [facility] RBC 3.19(L) 4.30 - 5.80 M/cumm [facility] MCV 96.2 81.3 - 96.4 fL [facility] MCH 30.7 27.1 - 33.3 pg [facility] MCHC 31.9(L) 32.3 - 35.7 g/dL [facility] RDW CV 15.9(H) 11.1 - 14.9 % [facility] RDW SD 55.5(H) 35.7 - 48.1 fL [facility] NRBC abs 0.00 0.00 - 0.01 K/cumm [facility] Blood 01/04/2025 8:27 PM CDT 01/04/2025 9:34 PM CDT us Radha Almonte CLAIM BENEFIT SPECIALIST LAB BLOOD ORDERABLES Final Result Performing Organization Address [facility] [place] [address] * Phosphorus (01/04/2025 8:27 PM CDT) Phosphorus, pl 3.2 2.3 - 4.5 mg/dL Blood 01/04/2025 8:27 PM CDT 01/04/2025 9:35 PM CDT us Radha Almonte CLAIM BENEFIT SPECIALIST LAB BLOOD ORDERABLES Final Result Performing Organization Address [facility] de Phone Number [facility] [place] [address] * Magnesium (01/04/2025 8:27 PM CDT) Pathologist [facility] Magnesium 2.2 1.4 - 2.5 mg/dL Blood 01/04/2025 8:27 PM CDT 01/04/2025 9:35 PM CDT us Radha Almonte CLAIM BENEFIT SPECIALIST LAB BLOOD ORDERABLES Final Result Performing Organization Address [facility] de Phone Number [facility] [place] [address] * (ABNORMAL) Hepatic function panel (01/04/2025 8:27 PM CDT) Bilirubin, total 0.2 0.1 - 1.2 mg/dL Bilirubin, direct <0.2 0.1 - 0.3 mg/dL [facility] Protein, pl 6.3(L) 6.5 - 8.5 g/dL [facility] Albumin 3.0(L) 3.5 - 5.0 g/dL [facility] Alk phos 92 40 - 130 Units/L [facility] ALT 254(H) 7 - 55 Units/L [facility] AST 177(H) 10 - 50 Units/L [facility] Blood 01/04/2025 8:27 PM CDT 01/04/2025 9:35 PM CDT us Radha Almonte CLAIM BENEFIT SPECIALIST LAB BLOOD ORDERABLES Final Result [facility] One [facility] [place] [address] * (ABNORMAL) Basic metabolic panel (01/04/2025 8:27 PM CDT) [facility] Sodium 139 135 - 145 mmol/L Potassium, pl 3.7 3.3 - 4.9 mmol/L [facility] Chloride 96(L) 97 - 110 mmol/L [facility] CO2 32 22 - 32 mmol/L [facility] Anion gap 11 2 - 15 mmol/L [facility] BUN 62(H) 6 - 25 mg/dL [facility] Creatinine 2.48(H) 0.80 - 1.30 mg/dL [facility] Glucose 212(H) 70 - 199 mg/dL [facility] Comment: Interpretive Data Fasting glucose >/= 126 mg/dl is diagnostic for diabetes. Fasting is defined as no caloric intake for at least 8 hours. Fasting glucose between 100 mg/dl to 125 mg/dl is diagnostic of prediabetes. In a patient with classic symptoms of hyperglycemia or hyperglycemic crisis, a random glucose >/= 200 mg/dl is diagnostic for diabetes. In the absence of unequivocal hyperglycemia, results should be confirmed by repeat testing. The classification and Diagnosis of Diabetes Diabetes Care 202; 46: S19-S40. Current interpretive data was last revised 2022. Calcium 8.7 8.5 - 10.3 mg/dL [facility] Blood 01/04/2025 8:27 PM CDT 01/04/2025 9:35 PM CDT us Radha Almonte CLAIM BENEFIT SPECIALIST LAB BLOOD ORDERABLES Final Result Performing Organization Address City/[facility]/ZIP Co de Phone Number [facility] [place] [address] * (ABNORMAL) POCT glucose (01/04/2025 5:27 PM CDT) [facility] Glucose, POC 288(H) 70 - 199 mg/dL Comment:Glu2: RN/MD Notified Glucose comment 1 Glu2: RN/MD Notified [facility] Blood 01/04/2025 5:27 PM CDT 01/04/2025 5:27 PM CDT us Meño Chandra MD LAB POCT ORDERABLES - DEVICE Final Result Performing Organization Address [facility] Co de Phone Number [facility] [place] [address] * (ABNORMAL) POCT glucose (01/04/2025 12:26 PM CDT) [facility] Glucose, POC 281(H) 70 - 199 mg/dL Blood 01/04/2025 12:2 6 PM CDT 01/04/2025 12:26 PM CDT us Meño Chandra MD LAB POCT ORDERABLES - DEVICE Final Result Performing Organization Address [facility] Co de Phone Number [facility] [place] [place] [address] * TRANSTHORACIC ECHO (TTE) COMPLETE W DOPPLER/CF W CONTRAST (01/04/2025 12:11 PM CDT) EF Mod BP 61 % CONS [facility] Laterality Modality Ultrasound 01/04/2025 11:2 8 AM CDT Narrative 01/04/2025 1:18 PM CDT [facility] [place] [address] Transthoracic Echocardiographic Report Patient Name: JAI MEIER W : 1945 (79y 5m) Gender: M Study Date: 01/04/2025 11:28:23 AM Ht(Inch): 70 Wt(Lb): 276.24 BSA: 2.49 Director Medical Writing: [facility]PHY [facility] Location: [id number] Order Provider: PELON HUGGINS Heart Rate: 65 BMI: 39.63 BP: 146 / 54 Ref Provider: PELON HUGGINS PROCEDURES: Echocardiographic Report: Transthoracic complete echo with strain imaging and contrast, 2D, spectral and tissue Doppler, color flow Doppler, M-mode. Contrast: Contrast Enhancement was Employed: After initial imaging due to sub- optimal quality related to co-morbidity defined by patient's body habitus and due to suboptimal image quality with inadequate visualization of at least 2 of 16 LV wall segments in any view after initial imaging. Perflutren contrast was administered using the volume necessary to obtain adequate images. 0.8 ml Optison Administered, (2.2 ml wasted). Technically difficult study due to: Body habitus. Poor acoustic windows. INDICATIONS: Dyspnea. CONCLUSIONS: 1. Normal left ventricular size based on volume index. Normal LV wall thickness. Normal left ventricular systolic function. The Ejection Fraction (Lemus's) is measured at 61 %. Grade I diastolic dysfunction (normal LA pressure). The average global longitudinal strain is borderline. 2. Normal right ventricular size. Normal right ventricular systolic function. 3. 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 4. The estimated right ventricular systolic pressure is 30 mmHg. ATTESTATION: I have personally reviewed and interpreted this study without fellow or resident. - DISCLAIMER: The study images and the final report will be retained in the patient chart by the Echo Laboratory for the legally required time period. This chart constitutes the legal record of any testing performed. FINDINGS: Left Ventricle: Normal left ventricular size based on volume index. Normal LV wall thickness. Normal left ventricular systolic function. The Ejection Fraction (Lemus's) is measured at 61 %. Grade I diastolic dysfunction (normal LA pressure). The average global longitudinal strain is borderline. The LV global strain is: -16.4 %. Paradoxical septal motion of uncertain etiology. Right Ventricle: Normal right ventricular size. Normal right ventricular systolic function. The right ventricular strain is more negative than -17%. Left Atrium: The left atrium is normal in size. Right Atrium: The right atrium is normal in size. Mitral Valve: Normal mitral valve structure. No mitral regurgitation. No stenosis present. Aortic Valve: Mild aortic valve stenosis. The mean transaortic gradient is 14 mmHg. Aortic valve dimensionless index is 0.51. 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 Tricuspid Valve: Normal Tricuspid valve structure. Mild tricuspid regurgitation. The estimated right ventricular systolic pressure is 30 mmHg. Pulmonic Valve: Normal pulmonic valve structure. No pulmonic regurgitation. No pulmonic valve stenosis present. Pericardium: Normal pericardium without pericardial effusion. Aorta: Normal aortic root size when indexed. The ascending aorta is normal in size when indexed. IVC: IVC is normal in size. PASP: Normal estimated pulmonary artery systolic pressure. Rhythm: Normal Sinus rhythm was seen during the study. MEASUREMENTS: 2D/MM Value Range Doppler Value Range LVIDd 2D 5.70 cm [ 4.20 - 5.80 ] AV Peak Gregor 2.6 m/s [ 1.0 - 1.7 ] LVIDs 2D 3.40 cm [ 2.50 - 4.00 ] AV Peak PG 27.04 mmHg IVSd 2D 1.10 cm [ 0.60 - 1.00 ] AV Mean PG 14 mmHg LVPWd 2D 1.00 cm [ 0.60 - 1.00 ] AV VTI 55.4 cm LV Thickness Ratio 1.1 LVOT Peak Gregor 1.3 m/s [ 0.7 - 1.1 ] LV Mass 2D 247.27 g LVOT Peak PG 6.76 mmHg LV Mass Index 2D 99.31 g/m2 LVOT Mean PG 4 mmHg RWT 0.35 LVOT VTI 28.3 cm EDV Mod BP 85.10 ml [ 62.00 - 150.00 ] LVOT/AV VTI 0.51 - Dimensionless index (DVI) LV EDV Index 34.18 ml/m2 MV E Peak Gregor 1.1 m/s [ 0.6 - 1.3 ] ESV Mod BP 33.00 ml [ 21.00 - 61.00 ] MV A Peak Gregor 1.1 m/s [ 1.0 - 1.2 ] EF Mod BP 61 % [ 52 - 72 ] MV E/A 1.0 ratio [ 0.8 - 1.5 ] LV GLS -16.4 % [ -25.0 - -18.0 ] MV PHT 59.00 msec [ 20.00 - 100.00 ] LA Length 4C 5.32 cm MVA PHT 3.73 cm2 LA Length 2C 5.59 cm MV Decel Time 201.00 msec [ 104.00 - 258.00 ] LA Volume BP 53.20 ml Med E` Gregor 4.2 cm/sec [ 8.0 - 25.0 ] LA Volume Index 21.37 ml/m2 [ 16.00 - 34.00 ] Lat E` Gregor 8.2 cm/sec [ 10.0 - 25.0 ] RVDd 2D 4.20 cm [ 2.00 - 3.00 ] Average E/E` 17.74 TAPSE 1.58 cm [ 1.71 - 5.00 ] RV S` 8.27 cm/sec RA Volume 59.20 ml TR Peak Gergor 2.5 m/s [ 1.0 - 2.8 ] RA Volume Index 23.78 ml/m2 TR Peak PG 25.0 mmHg AoR Diam 2D 2.60 cm [ 3.10 - 3.70 ] PV Peak Gregor 1.5 m/s [ 0.4 - 0.8 ] Ao Root Index 1.04 cm/m2 [ 1.00 - 2.00 ] PV Peak PG 9.00 mmHg Asc Ao Diam 2D 2.70 cm Asc Ao Index 1.08 cm/m2 Electronically Signed By: Kory Garcia MD 01/04/2025 1:18:14 PM CDT Procedure Note Kory Garcia MD - 01/04/2025 [facility] [place] [place] [address] Transthoracic Echocardiographic Report Patient Name: JAI MEIER W : 1945 (79y 5m) Gender: M Study Date: 01/04/2025 11:28:23 AM Ht(Inch): 70 Wt(Lb): 276.24 BSA: 2.49 Director Medical Writing: [facility] Location: [id number] Order Provider:PELON HUGGINS Heart Rate: 65 BMI: 39.63 BP: 146 / 54 Ref Provider: PELON HUGGINS PROCEDURES: Echocardiographic Report: Transthoracic complete echo with strain imagingand contrast, 2D, spectral and tissue Doppler, color flow Doppler, M-mode. Contrast: Contrast Enhancement was Employed: After initial imaging due tosub- optimal quality related to co-morbidity defined by patient's body habitus and dueto suboptimal image quality with inadequate visualization of at least 2 of 16 LV wallsegments in any view after initial imaging. Perflutren contrast was administered using thevolume necessary to obtain adequate images. 0.8 ml Optison Administered, (2.2 mlwasted). Technically difficult study due to: Body habitus. Poor acoustic windows. INDICATIONS: Dyspnea. CONCLUSIONS: 1. Normal left ventricular size based on volume index. Normal LV wallthickness. Normal left ventricular systolic function. The Ejection Fraction (Lemus's) ismeasured at 61 %. Grade I diastolic dysfunction (normal LA pressure). The average globallongitudinal strain is borderline. 2. Normal right ventricular size. Normal right ventricular systolicfunction. 3. A bioprosthetic valve is present in the aortic position withphysiologic gradient. 4. The estimated right ventricular systolic pressure is 30 mmHg. ATTESTATION: I have personally reviewed and interpreted this study without fellow orresident. - DISCLAIMER: The study images and the final report will be retained in the patientchart by the Echo Laboratory for the legally required time period. This chart constitutesthe legal record of any testing performed. FINDINGS: Left Ventricle: Normal left ventricular size based on volume index. NormalLV wall thickness. Normal left ventricular systolic function. The EjectionFraction (Lemus's) is measured at 61 %. Grade I diastolic dysfunction (normal LA pressure).The average global longitudinal strain is borderline. The LV global strain is: -16.4%. Paradoxical septal motion of uncertain etiology. Right Ventricle: Normal right ventricular size. Normal right ventricularsystolic function. The right ventricular strain is more negative than -17%. Left Atrium: The left atrium is normal in size. Right Atrium: The right atrium is normal in size. Mitral Valve: Normal mitral valve structure. No mitral regurgitation. Nostenosis present. Aortic Valve: Mild aortic valve stenosis. The mean transaortic gradient is14 mmHg. Aortic valve dimensionless index is 0.51. A bioprosthetic valve is presentin the aortic position. Tricuspid Valve: Normal Tricuspid valve structure. Mild tricuspidregurgitation. The estimated right ventricular systolic pressure is 30 mmHg. Pulmonic Valve: Normal pulmonic valve structure. No pulmonicregurgitation. No pulmonic valve stenosis present. Pericardium: Normal pericardium without pericardial effusion. Aorta: Normal aortic root size when indexed. The ascending aorta is normalin size when indexed. IVC: IVC is normal in size. PASP: Normal estimated pulmonary artery systolic pressure. Rhythm: Normal Sinus rhythm was seen during the study. MEASUREMENTS: 2D/MM Value Range DopplerValue Range LVIDd 2D 5.70 cm [ 4.20 - 5.80 ] AV Peak Vel2.6 m/s [ 1.0 - 1.7 ] LVIDs 2D 3.40 cm [ 2.50 - 4.00 ] AV Peak PG27.04 mmHg IVSd 2D 1.10 cm [ 0.60 - 1.00 ] AV Mean PG14 mmHg LVPWd 2D 1.00 cm [ 0.60 - 1.00 ] AV VTI55.4 cm LV Thickness Ratio 1.1 LVOT Peak Vel1.3 m/s [ 0.7 - 1.1 ] LV Mass 2D 247.27 g LVOT Peak PG6.76 mmHg LV Mass Index 2D 99.31 g/m2 LVOT Mean PG4 mmHg RWT 0.35 LVOT VTI28.3 cm EDV Mod BP 85.10 ml [ 62.00 - 150.00 ] LVOT/AV VTI0.51 - Dimensionless index (DVI) LV EDV Index 34.18 ml/m2 MV E Peak Vel1.1 m/s [ 0.6 - 1.3 ] ESV Mod BP 33.00 ml [ 21.00 - 61.00 ] MV A Peak Vel1.1 m/s [ 1.0 - 1.2 ] EF Mod BP 61 % [ 52 - 72 ] MV E/A1.0 ratio [ 0.8 - 1.5 ] LV GLS -16.4 % [ -25.0 - -18.0 ] MV PHT59.00 msec [ 20.00 - 100.00 ] LA Length 4C 5.32 cm MVA PHT3.73 cm2 LA Length 2C 5.59 cm MV Decel Pate630.00 msec [ 104.00 - 258.00 ] LA Volume BP 53.20 ml Med E` Vel4.2 cm/sec [ 8.0 - 25.0 ] LA Volume Index 21.37 ml/m2 [ 16.00 - 34.00 ] Lat E` Vel8.2 cm/sec [ 10.0 - 25.0 ] RVDd 2D 4.20 cm [ 2.00 - 3.00 ] Average E/E`17.74 TAPSE 1.58 cm [ 1.71 - 5.00 ] RV S`8.27 cm/sec RA Volume 59.20 ml TR Peak Vel2.5 m/s [ 1.0 - 2.8 ] RA Volume Index 23.78 ml/m2 TR Peak PG25.0 mmHg AoR Diam 2D 2.60 cm [ 3.10 - 3.70 ] PV Peak Vel1.5 m/s [ 0.4 - 0.8 ] Ao Root Index 1.04 cm/m2 [ 1.00 - 2.00 ] PV Peak PG9.00 mmHg Asc Ao Diam 2D2.70 cm Asc Ao Index1.08 cm/m2 Electronically Signed By: Kory Garcia MD 01/04/2025 1:18:14 PM CDT us Pelon Huggins MD PhD CV ECHO PROCEDURES Final Result * POCT glucose (01/04/2025 7:50 AM CDT) Pathologist [facility] Glucose, POC 196 70 - 199 mg/dL Comment:Glu2: RN/ Notified Glucose comment 1 Glu2: RN/ Notified [facility] Blood 01/04/2025 7:50 AM CDT 01/04/2025 7:50 AM CDT us Meño Chandra MD LAB POCT ORDERABLES - DEVICE Final Result [facility] Department [place] [address] * (ABNORMAL) eGFR (01/03/2025 8:23 PM CDT) Pathologist [facility] eGFR 30(L) >=60 mL/min/1. 73 m2 Comment: Interpretive Data Reference Interval Normal >/= 90 mL/min/1.73m2 Mildly decreased* 60 - 89 mL/min/1.73m2 Mildly to moderately decreased 45 - 59 mL/min/1.73m2 Moderately to severely decreased 30 - 44 mL/min/1.73m2 Severely decreased 15 - 29 mL/min/1.73m2 Kidney Failure < 15 mL/min/1.73m2 *Relative to young adult level Estimated glomerular filtration rate is determined by the 2020 CKD-EPI equation recommended by the National Kidney Foundation (A Unifying Approach to GFR Estimation: Recommendations of the NKF-ASK Task Force on Reassessing the Inclusion of Race in Diagnosing Kidney Disease, JASN 2020). The CKD-EPI equation should not be used for patients with unstable renal function and has not been validated in children and those over 70. Current interpretive data was last reviewed 2021. Blood 01/03/2025 8:23 PM CDT 01/03/2025 9:05 PM CDT us Radha Almonte NP LAB BLOOD ORDERABLES Final Result [facility] Department [place] [address] * (ABNORMAL) CBC without differential (01/03/2025 8:23 PM CDT) WBC 9.37 3.80 - 9.90 K/cumm Hgb 9.7(L) 13.0 - 17.5 g/dL [facility] Hct 30.5(L) 38.9 - 50.3 % [facility] Plt 316 150 - 400 K/cumm [facility] MPV 9.7 9.1 - 12.3 fL [facility] RBC 3.27(L) 4.30 - 5.80 M/cumm [facility] MCV 93.3 81.3 - 96.4 fL [facility] MCH 29.7 27.1 - 33.3 pg [facility] MCHC 31.8(L) 32.3 - 35.7 g/dL [facility] RDW CV 16.1(H) 11.1 - 14.9 % [facility] RDW SD 54.7(H) 35.7 - 48.1 fL [facility] NRBC abs 0.00 0.00 - 0.01 K/cumm [facility] Blood 01/03/2025 8:23 PM CDT 01/03/2025 8:49 PM CDT us Radha Amlonte CLAIM BENEFIT SPECIALIST LAB BLOOD ORDERABLES Final Result Performing Organization Address [facility] Co de Phone Number [facility] [place] [address] * Phosphorus (01/03/2025 8:23 PM CDT) Phosphorus, pl 3.9 2.3 - 4.5 mg/dL Blood 01/03/2025 8:23 PM CDT 01/03/2025 9:05 PM CDT us Radha Almonte CLAIM BENEFIT SPECIALIST LAB BLOOD ORDERABLES Final Result Performing Organization Address [facility] de Phone Number [facility] [place] [address] * Magnesium (01/03/2025 8:23 PM CDT) Pathologist [facility] Magnesium 2.0 1.4 - 2.5 mg/dL Blood 01/03/2025 8:23 PM CDT 01/03/2025 9:05 PM CDT us Radha Almonte CLAIM BENEFIT SPECIALIST LAB BLOOD ORDERABLES Final Result Performing Organization Address [facility] [place] [address] * (ABNORMAL) Hepatic function panel (01/03/2025 8:23 PM CDT) Bilirubin, total 0.2 0.1 - 1.2 mg/dL Bilirubin, direct <0.2 0.1 - 0.3 mg/dL [facility] Protein, pl 6.1(L) 6.5 - 8.5 g/dL [facility] Albumin 3.0(L) 3.5 - 5.0 g/dL [facility] Alk phos 90 40 - 130 Units/L [facility] ALT 171(H) 7 - 55 Units/L [facility] AST 76(H) 10 - 50 Units/L [facility] Blood 01/03/2025 8:23 PM CDT 01/03/2025 9:05 PM CDT Radha Almonte CLAIM BENEFIT SPECIALIST LAB BLOOD ORDERABLES Final Result [facility] Department [place] [address] * (ABNORMAL) Basic metabolic panel (01/03/2025 8:23 PM CDT) [facility] Sodium 136 135 - 145 mmol/L Potassium, pl 3.7 3.3 - 4.9 mmol/L [facility] Chloride 93(L) 97 - 110 mmol/L [facility] CO2 32 22 - 32 mmol/L [facility] Anion gap 11 2 - 15 mmol/L [facility] BUN 49(H) 6 - 25 mg/dL [facility] Creatinine 2.21(H) 0.80 - 1.30 mg/dL [facility] Glucose 209(H) 70 - 199 mg/dL [facility] Comment: Interpretive Data Fasting glucose >/= 126 mg/dl is diagnostic for diabetes. Fasting is defined as no caloric intake for at least 8 hours. Fasting glucose between 100 mg/dl to 125 mg/dl is diagnostic of prediabetes. In a patient with classic symptoms of hyperglycemia or hyperglycemic crisis, a random glucose >/= 200 mg/dl is diagnostic for diabetes. In the absence of unequivocal hyperglycemia, results should be confirmed by repeat testing. The classification and Diagnosis of Diabetes Diabetes Care 202; 46: S19-S40. Current interpretive data was last revised 2022. Calcium 8.4(L) 8.5 - 10.3 mg/dL [facility] Blood 01/03/2025 8:23 PM CDT 01/03/2025 9:05 PM CDT Radha Almonte CLAIM BENEFIT SPECIALIST LAB BLOOD ORDERABLES Final Result [facility] [place] [address] * (ABNORMAL) POCT glucose (01/03/2025 8:10 PM CDT) Glucose, POC 250(H) 70 - 199 mg/dL Blood 01/03/2025 8:10 PM CDT 01/03/2025 8:10 PM CDT Meño Chandra MD LAB POCT ORDERABLES - DEVICE Final Result Performing Organization Address [facility] Co de Phone Number [facility] [place] [address] * (ABNORMAL) POCT glucose (01/03/2025 5:06 PM CDT) Glucose, POC 257(H) 70 - 199 mg/dL Comment:Glu2: RN/ Notified Glucose comment 1 Glu2: RN/MD Notified [facility] Blood 01/03/2025 5:06 PM CDT 01/03/2025 5:06 PM CDT Meño Chandra MD LAB POCT ORDERABLES - DEVICE Final Result Performing Organization Address [facility] Co de Phone Number [facility] Department [place] [address] * (ABNORMAL) POCT glucose (01/03/2025 11:47 AM CDT) Glucose, POC 322(H) 70 - 199 mg/dL Comment:Glu2: RN/ Notified Glucose comment 1 Glu2: RN/MD Notified [facility] Blood 01/03/2025 11:4 7 AM CDT 01/03/2025 11:47 AM CDT Meño Chandra MD LAB POCT ORDERABLES - DEVICE Final Result [facility] Department [place] [address] * (ABNORMAL) POCT glucose (01/03/2025 8:22 AM CDT) [facility] Glucose, POC 257(H) 70 - 199 mg/dL Comment:Glu2: RN/MD Notified Glucose comment 1 Glu2: RN/MD Notified [facility] Blood 01/03/2025 8:22 AM CDT 01/03/2025 8:22 AM CDT us Meño Chandra MD LAB POCT ORDERABLES - DEVICE Final Result Performing Organization Address [facility] de Phone Number [facility] [place] [address] * ECG 12 lead (01/03/2025 5:36 AM CDT) [facility] Ventricular Rate EKG/Min 70 BPM [facility] Atrial Rate 60 BPM [facility] AL-Interval (MSEC) 256 ms [facility] QRS-Interval (MSEC) 98 ms [facility] QT-Interval (MSEC) 520 ms [facility] QTc 561 ms [facility] P Zalma 62 degrees [facility] R Zalma -3 degrees [facility] T Zalma 110 degrees [facility] Diagnosis Atrial-paced rhythm with prolonged AV conduction with Premature supraventricular complexes ST & T wave abnormality, consider anterolateral ischemia Prolonged QT Abnormal ECG When compared with ECG of 27-DEC-2024 06:25, Premature supraventricular complexes are now Present Questionable change in QRS axis Confirmed by MONICA VELASCO M.D ([id number]) on 01/03/2025 9:50:57 AM [facility] 01/03/2025 5:36 AM CDT 01/03/2025 9:50 AM CDT us Radha Almonte CLAIM BENEFIT SPECIALIST ECG ORDERABLES Final Resu lt Performing Organization Address [facility] Co de Phone Number [facility] * (ABNORMAL) eGFR (01/03/2025 4:39 AM CDT) [facility] eGFR 31(L) >=60 mL/min/1. 73 m2 Comment: Interpretive Data Reference Interval Normal >/= 90 mL/min/1.73m2 Mildly decreased* 60 - 89 mL/min/1.73m2 Mildly to moderately decreased 45 - 59 mL/min/1.73m2 Moderately to severely decreased 30 - 44 mL/min/1.73m2 Severely decreased 15 - 29 mL/min/1.73m2 Kidney Failure < 15 mL/min/1.73m2 *Relative to young adult level Estimated glomerular filtration rate is determined by the 2020 CKD-EPI equation recommended by the National Kidney Foundation (A Unifying Approach to GFR Estimation: Recommendations of the NKF-ASK Task Force on Reassessing the Inclusion of Race in Diagnosing Kidney Disease, JASN 2020). The CKD-EPI equation should not be used for patients with unstable renal function and has not been validated in children and those over 70. Current interpretive data was last reviewed 2021. Blood 01/03/2025 4:39 AM CDT 01/03/2025 6:14 AM CDT us Radha Almonte NP LAB BLOOD ORDERABLES Final Result [facility] Department [place] [address] * (ABNORMAL) CBC without differential (01/03/2025 4:39 AM CDT) [facility] WBC 10.59(H) 3.80 - 9.90 K/cumm Hgb 10.3(L) 13.0 - 17.5 g/dL [facility] Hct 31.2(L) 38.9 - 50.3 % [facility] Plt 309 150 - 400 K/cumm [facility] MPV 10.1 9.1 - 12.3 fL [facility] RBC 3.33(L) 4.30 - 5.80 M/cumm [facility] MCV 93.7 81.3 - 96.4 fL [facility] MCH 30.9 27.1 - 33.3 pg [facility] MCHC 33.0 32.3 - 35.7 g/dL [facility] RDW CV 16.3(H) 11.1 - 14.9 % [facility] RDW SD 55.1(H) 35.7 - 48.1 fL [facility] NRBC abs 0.00 0.00 - 0.01 K/cumm [facility] Blood 01/03/2025 4:39 AM CDT 01/03/2025 6:33 AM CDT us Radha Almonte CLAIM BENEFIT SPECIALIST LAB BLOOD ORDERABLES Final Result Performing Organization Address [facility] Co de Phone Number [facility] [place] [address] * (ABNORMAL) Phosphorus (01/03/2025 4:39 AM CDT) Phosphorus, pl 5.0(H) 2.3 - 4.5 mg/dL Blood 01/03/2025 4:39 AM CDT 01/03/2025 6:14 AM CDT Radha Almonte CLAIM BENEFIT SPECIALIST LAB BLOOD ORDERABLES Final Result Performing Organization Address [facility] Co de Phone Number [facility] [place] [employer] [place] [address] * Magnesium (01/03/2025 4:39 AM CDT) Magnesium 1.8 1.4 - 2.5 mg/dL Blood 01/03/2025 4:39 AM CDT 01/03/2025 6:14 AM CDT us Radha Almonte CLAIM BENEFIT SPECIALIST LAB BLOOD ORDERABLES Final Result Performing Organization Address [facility]/ZIP Co de Phone Number [facility] [place] [address] * (ABNORMAL) Hemoglobin A1c (01/03/2025 4:39 AM CDT) Hgb A1C 6.4(H) 4.0 - 5.6 % Estimated Average Glucose 137 mg/dL [facility] Comment: The ADA recommends reporting an estimated Average Glucose (eAG) with all Hemoglobin A1c results using the equation derived from a study of 507 normal and diabetic adults. Minority populations were underrepresented and children were not included. (Diabetes Care 2020; 43(S1): S66-S76). The eAG is not equivalent to a fasting glucose. Blood 01/03/2025 4:39 AM CDT 01/03/2025 6:14 AM CDT Narrative [facility] - 01/03/2025 7:58 AM CDT Indication for repeat testing:->Health monitoring Radha Almonte NP LAB BLOOD ORDERABLES Final Result Performing Organization Address [facility] Co de Phone Number [facility] Department [place] [address] * (ABNORMAL) Hepatic function panel (01/03/2025 4:39 AM CDT) [facility] Bilirubin, total 0.3 0.1 - 1.2 mg/dL Bilirubin, direct <0.2 0.1 - 0.3 mg/dL [facility] Comment:Reviewed Protein, pl 6.2(L) 6.5 - 8.5 g/dL [facility] Albumin 2.9(L) 3.5 - 5.0 g/dL [facility] Alk phos 95 40 - 130 Units/L [facility] ALT 181(H) 7 - 55 Units/L [facility] AST 63(H) 10 - 50 Units/L [facility] Blood 01/03/2025 4:39 AM CDT 01/03/2025 6:14 AM CDT Radha Almonte CLAIM BENEFIT SPECIALIST LAB BLOOD ORDERABLES Final Result Performing Organization Address [facility] Co de Phone Number [facility] Department [place] [address] * (ABNORMAL) Basic metabolic panel (01/03/2025 4:39 AM CDT) Sodium 137 135 - 145 mmol/L Potassium, pl 3.6 3.3 - 4.9 mmol/L [facility] Chloride 92(L) 97 - 110 mmol/L [facility] CO2 31 22 - 32 mmol/L [facility] Anion gap 14 2 - 15 mmol/L [facility] BUN 40(H) 6 - 25 mg/dL [facility] Creatinine 2.15(H) 0.80 - 1.30 mg/dL [facility] Glucose 236(H) 70 - 199 mg/dL [facility] Comment: Interpretive Data Fasting glucose >/= 126 mg/dl is diagnostic for diabetes. Fasting is defined as no caloric intake for at least 8 hours. Fasting glucose between 100 mg/dl to 125 mg/dl is diagnostic of prediabetes. In a patient with classic symptoms of hyperglycemia or hyperglycemic crisis, a random glucose >/= 200 mg/dl is diagnostic for diabetes. In the absence of unequivocal hyperglycemia, results should be confirmed by repeat testing. The classification and Diagnosis of Diabetes Diabetes Care 2021; 46: S19-S40. Current interpretive data was last revised 2022. Calcium 8.8 8.5 - 10.3 mg/dL [facility] Blood 01/03/2025 4:39 AM CDT 01/03/2025 6:14 AM CDT Radha Almonte NP LAB BLOOD ORDERABLES Final Result [facility] Department [place] [address] * (ABNORMAL) POCT glucose (01/03/2025 1:54 AM CDT) Glucose, POC 268(H) 70 - 199 mg/dL Blood 01/03/2025 1:54 AM CDT 01/03/2025 1:54 AM CDT Meño Chandra MD LAB POCT ORDERABLES - DEVICE Final Result Performing Organization Address City/[facility]/ZIP Co de Phone Number [facility] Department [place] [place] [address] * (ABNORMAL) POCT glucose (01/02/2025 8:19 PM CDT) [facility] Glucose, POC 276(H) 70 - 199 mg/dL Comment:Glu2: RN/MD Notified Glucose comment 1 Glu2: RN/MD Notified [facility] Blood 01/02/2025 8:19 PM CDT 01/02/2025 8:19 PM CDT Meño Chandra MD LAB POCT ORDERABLES - DEVICE Final Result Performing Organization Address [facility] Co de Phone Number [facility] [place] [address] * Troponin I high-sensitivity 4-hour (01/02/2025 6:21 PM CDT) [facility] Trop I hs 34 <=35 ng/L Comment: Interpretive Data For further hscTnI resources including the diagnostic algorithm and an aid in interpretation, copy and paste this link: https://bjhlab.testcatalog.org/show/hsTrop-1 Current Interpretive Data last revised 2019. Trop I hs delta 6 ng/L [facility] Trop I hs interp Equivocal [facility] Blood 01/02/2025 6:21 PM CDT 01/02/2025 6:33 PM CDT Barbra Lopez MD LAB BLOOD ORDERABLES Final Result Performing Organization Address [facility]/ZIP Co de Phone Number [facility] [place] [place] [address] * (ABNORMAL) POCT glucose (01/02/2025 5:02 PM CDT) Glucose, POC 208(H) 70 - 199 mg/dL Blood 01/02/2025 5:02 PM CDT 01/02/2025 5:02 PM CDT Obdulio Castro MD LAB POCT ORDERABLES - D EVICE Final Result Performing Organization Address [facility] de Phone Number [facility] [place] [address] * Troponin I high-sensitivity 2-hour (01/02/2025 4:14 PM CDT) [facility] Trop I hs 27 <=35 ng/L Comment: Interpretive Data For further hscTnI resources including the diagnostic algorithm and an aid in interpretation, copy and paste this link: https://bjhlab.testcatalog.org/show/hsTrop-1 Current Interpretive Data last revised 2019. Trop I hs delta -1 ng/L [facility] Trop I hs interp Insignificant [facility] Blood 01/02/2025 4:14 PM CDT 01/02/2025 4:36 PM CDT us Barbra Lopez MD LAB BLOOD ORDERABLES Final Result Performing Organization Address [facility] de Phone Number [facility] [place] [address] * (ABNORMAL) POCT glucose (01/02/2025 4:09 PM CDT) Glucose, POC 201(H) 70 - 199 mg/dL Blood 01/02/2025 4:09 PM CDT 01/02/2025 4:09 PM CDT Obdulio Castro MD LAB POCT ORDERABLES - D EVICE Final Result Performing Organization Address [facility] Co de Phone Number [facility] Department [place] [address] * XR Chest 1 Vw Portable (01/02/2025 3:48 PM CDT) Anatomical Region Laterality Modality Body, Chest N/A Computed Radiogr aphy 01/02/2025 4:12 PM CDT Impressions 01/02/2025 4:12 PM CDT Comparison is made to chest radiograph dated December 23, 2024. There is a left chest biventricular pacemaker with leads overlying the right ventricle and atrium. Small lung volumes bilaterally with mild bibasilar atelectasis. No focal airspace opacity, pneumothorax, or pleural effusion. Unchanged mildly enlarged cardiomediastinal silhouette. The radiology attending physician has personally reviewed this study, and had reviewed and/or edited this written report and agrees with it. Electronically signed by: Nathaniel De La Vega M.D. Narrative 01/02/2025 4:12 PM CDT EXAMINATION: 1 view chest radiograph Procedure Note Nathaniel De La Vega MD - 01/02/2025 EXAMINATION: 1 view chest radiograph IMPRESSION: Comparison is made to chest radiograph dated December 23, 2024. There is a left chest biventricular pacemaker with leads overlying the right ventricle and atrium. Small lung volumes bilaterally with mild bibasilar atelectasis. No focal airspace opacity, pneumothorax, or pleural effusion. Unchanged mildly enlarged cardiomediastinal silhouette. The radiology attending physician has personally reviewed this study, and had reviewed and/or edited this written report and agrees with it. Electronically signed by: Nathaniel De La Vega M.D. us Barbra Lopez MD IMG XR PROCEDURES Final Res ult * (ABNORMAL) ECG 12-LEAD (01/02/2025 3:33 PM CDT) Narrative [facility] - 01/02/2025 3:33 PM CDT Barbra Lopez MD 01/02/2025 3:33 PM ECG 12 lead Date/Time: 01/02/2025 3:33 PM Performed by: Barbra Lopez MD Authorized by: Barbra Lopez MD Rate: ECG rate: 125 ECG rate assessment: tachycardic Rhythm: Rhythm: sinus tachycardia Ectopy: Ectopy: none QRS: QRS axis: Normal QRS intervals: Normal Conduction: Conduction: normal ST segments: ST segments: Non-specific Elevation: II T waves: T waves: inverted Inverted: V2, V3, V4, V5, V6, I and aVL Previous ECG: Previous ECG: Compared to current Date of previous EC12/23/2024 Comparison ECG info: Afib Similarity: Changes noted Interpretation: Interpretation: abnormal Recommended Follow-up: Recommended follow up: further workup in the ED us Barbra Lopez MD ECG ORDERABLES Final Resul t [facility] * ECG 12-LEAD (01/02/2025 3:32 PM CDT) Narrative [facility] - 01/02/2025 3:32 PM CDT Barbra Lopez MD 01/02/2025 3:32 PM ECG 12 lead Date/Time: 01/02/2025 3:32 PM Performed by: Barbra Lopez MD Authorized by: Barbra Lopez MD Rate: ECG rate: 64 ECG rate assessment: normal Rhythm: Rhythm: sinus rhythm Ectopy: Ectopy: none QRS: QRS axis: Normal QRS intervals: Normal Conduction: Conduction: normal ST segments: ST segments: Non-specific T waves: T waves: inverted Inverted: V1, V2, V3, V4, V5, V6, I and aVL Previous ECG: Previous ECG: Compared to current Date of previous EC12/23/2024 Similarity: No change Interpretation: Interpretation: non-specific Recommended Follow-up: Recommended follow up: further workup in the ED Procedure Note Barbra Lopez MD - 01/02/2025 3:32 PM CDT Procedure ECG 12 lead Date/Time: 01/02/2025 3:32 PM Performed by: Barbra Lopez MD Authorized by: Barbra Lopez MD Rate: ECG rate: 64 ECG rate assessment: normal Rhythm: Rhythm: sinus rhythm Ectopy: Ectopy: none QRS: QRS axis: Normal QRS intervals: Normal Conduction: Conduction: normal ST segments: ST segments: Non-specific T waves: T waves: inverted Inverted: V1, V2, V3, V4, V5, V6, I and aVL Previous ECG: Previous ECG: Compared to current Date of previous EC12/23/2024 Similarity: No change Interpretation: Interpretation: non-specific Recommended Follow-up: Recommended follow up: further workup in the ED Barbra Lopez MD 01/02/25 1532 us Barbra Lopez MD ECG ORDERABLES Final Resul t [facility] * AL CRITICAL CARE ILL/INJURED PATIENT INIT 30-74 MIN (01/02/2025 3:31 PM CDT) Narrative Barbra Lopez MD - 01/02/2025 3:31 PM CDT Barbra Lopez MD 01/02/2025 3:32 PM Critical Care Performed by: Barbra Lopez MD Authorized by: Barbra Lopez MD Critical care provider statement: As reflected in the history, physical exam, orders, notes, and/or MDM, I was personally present while the patient was critically ill and provided critical care services for 35 minutes, excluding time involved in separately billable procedures. Critical care was necessary to treat or prevent imminent or life-threatening deterioration of the following condition(s): atrial fibrillation and tachy/anat arrhythmic event Critical care was time spent by me providing the following: continuous telemetry, continuous pulse oximetry, interpretation of bedside monitors, imaging, and arterial/venous lab draws and serial bedside patient exams Cardiology consult and considerationof clinical laboratory scientist. I provided emergent necessary critical care medicine services to this patient. I ordered and reviewed test results and/or imaging studies. I spent time discussing the management of this critically ill patient with consultants and the medical staff. I spent time discussing the management and therapeutic options for this critically ill patient with the patient themselves or with the appropriate designated surrogate decision-maker. I spent time documenting in the medical record. us Barbra Lopez MD IN CLINIC/BEDSIDE ORDERABLE S Final Result * Type and screen (01/02/2025 2:33 PM CDT) Pathologist [facility], indirect Negative ABO Rh A Positive [facility] Blood 01/02/2025 2:33 PM CDT 01/02/2025 2:44 PM CDT Narrative [facility] - 01/02/2025 3:31 PM CDT Has the patient had Daratumumab or Isatuximab in the past 6 months?->Unknown Barbra Lopez MD LAB BLOOD BANK TEST ORDERAB LES Final Result Performing Organization Address [facility] Co de Phone Number [facility] [place] [address] * Troponin I high-sensitivity series (baseline, 2hr, 4hr, 6hr) (01/02/2025 2:24 PM CDT) [facility] Trop I hs 28 <=35 ng/L Comment: Interpretive Data For further hscTnI resources including the diagnostic algorithm and an aid in interpretation, copy and paste this link: https://bjhlab.testcatalog.org/show/hsTrop-[email or web address] Current Interpretive Data last revised 2019. Blood 01/02/2025 2:24 PM CDT 01/02/2025 2:43 PM CDT Result [facility] Barbra Lopez MD LAB BLOOD ORDERABLES Final Result Performing Organization Address [facility] Co de Phone Number [facility] Department [place] [address] * (ABNORMAL) eGFR (01/02/2025 2:24 PM CDT) [facility] eGFR 42(L) >=60 mL/min/1. 73 m2 Comment: Interpretive Data Reference Interval Normal >/= 90 mL/min/1.73m2 Mildly decreased* 60 - 89 mL/min/1.73m2 Mildly to moderately decreased 45 - 59 mL/min/1.73m2 Moderately to severely decreased 30 - 44 mL/min/1.73m2 Severely decreased 15 - 29 mL/min/1.73m2 Kidney Failure < 15 mL/min/1.73m2 *Relative to young adult level Estimated glomerular filtration rate is determined by the 2020 CKD-EPI equation recommended by the National Kidney Foundation (A Unifying Approach to GFR Estimation: Recommendations of the NKF-ASK Task Force on Reassessing the Inclusion of Race in Diagnosing Kidney Disease, JASN 202). The CKD-EPI equation should not be used for patients with unstable renal function and has not been validated in children and those over 70. Current interpretive data was last reviewed 2021. Blood 01/02/2025 2:24 PM CDT 01/02/2025 2:44 PM CDT us Barbra Lopez MD LAB BLOOD ORDERABLES Final Result [facility] Department [place] [address] * (ABNORMAL) Differential, auto (01/02/2025 2:24 PM CDT) Neutrophil abs 7.22(H) 1.50 - 6.50 K/cumm Imm gran abs 0.02 0.00 - 0.10 K/cumm [facility] Lymphocyte abs 1.59 0.80 - 3.30 K/cumm [facility] Monocyte abs 0.93(H) 0.20 - 0.80 K/cumm [facility] Eosinophil abs 0.10 0.00 - 0.50 K/cumm [facility] Basophil abs 0.05 0.00 - 0.10 K/cumm [facility] Neutrophil pct 72.9 % [facility] Comment: Interpretive Data Percent cell count reference ranges are not reported, since discordance with absolute values may lead to misinterpretation of CBC data. Current Interpretive Data was last revised on 2017. Imm gran pct 0.2 % [facility] Comment: Interpretive Data Percent cell count reference ranges are not reported, since discordance with absolute values may lead to misinterpretation of CBC data. Current Interpretive Data was last revised on 2017. Lymphocyte pct 16.0 % [facility] Comment: Interpretive Data Percent cell count reference ranges are not reported, since discordance with absolute values may lead to misinterpretation of CBC data. Current Interpretive Data was last revised on 2017. Monocyte pct 9.4 % [facility] Comment: Interpretive Data Percent cell count reference ranges are not reported, since discordance with absolute values may lead to misinterpretation of CBC data. Current Interpretive Data was last revised on 2017. Eosinophil pct 1.0 % [facility] Comment: Interpretive Data Percent cell count reference ranges are not reported, since discordance with absolute values may lead to misinterpretation of CBC data. Current Interpretive Data was last revised on 2017. Basophil pct 0.5 % [facility] Comment: Interpretive Data Percent cell count reference ranges are not reported, since discordance with absolute values may lead to misinterpretation of CBC data. Current Interpretive Data was last revised on 2017. Blood 01/02/2025 2:24 PM CDT 01/02/2025 2:43 PM CDT us Barbra Lopez MD LAB BLOOD ORDERABLES Final Result [facility] [place] [address] * (ABNORMAL) CBC with auto differential (01/02/2025 2:24 PM CDT) WBC 9.91(H) 3.80 - 9.90 K/cumm Hgb 10.9(L) 13.0 - 17.5 g/dL [facility] Hct 34.2(L) 38.9 - 50.3 % [facility] Plt 353 150 - 400 K/cumm [facility] MPV 10.0 9.1 - 12.3 fL [facility] RBC 3.58(L) 4.30 - 5.80 M/cumm [facility] MCV 95.5 81.3 - 96.4 fL [facility] MCH 30.4 27.1 - 33.3 pg [facility] MCHC 31.9(L) 32.3 - 35.7 g/dL [facility] RDW CV 16.3(H) 11.1 - 14.9 % [facility] RDW SD 57.1(H) 35.7 - 48.1 fL [facility] NRBC abs 0.00 0.00 - 0.01 K/cumm [facility] Blood 01/02/2025 2:24 PM CDT 01/02/2025 2:43 PM CDT Barbra Lopez MD LAB BLOOD ORDERABLES Final Result Performing Organization Address [facility] de Phone Number [facility] [place] [place] [address] * aPTT (01/02/2025 2:24 PM CDT) aPTT 30 26 - 38 sec Comment: Interpretive Data Heparin therapeutic range: 66.0 - 100.0 seconds. Range based on correlation with therapeutic heparin activity range of 0.3 - 0.7 Units/mL. Current interpretive data was last revised on 2023. Blood 01/02/2025 2:2 4 PM CDT 01/02/2025 2:35 PM CDT Barbra Lopez MD LAB BLOOD ORDERABLES Final Result Performing Organization Address [facility] de Phone Number [facility] [place] [employer] [place] [address] * (ABNORMAL) Protime-INR (01/02/2025 2:24 PM CDT) PT 22.9(H) 10.2 - 13.5 sec INR 2.06(H) 0.90 - 1.20 [facility] Comment: Interpretive data Oral anticoagulant therapeutic ranges: Venous thromboembolism prophylaxis or treatment: 2.0-3.0 CARDIOLOGY Standard range: 2.0-3.0 High-intensity range: 2.5-3.5 Refer to indication-specific guidelines for appropriate target ranges for prosthetic heart valve replacement. Current interpretive data was last revised on 2019. Blood 01/02/2025 2:24 PM CDT 01/02/2025 2:35 PM CDT us Barbra Lopez MD LAB BLOOD ORDERABLES Final Result [facility] Department [place] [address] * (ABNORMAL) Comprehensive metabolic panel (01/02/2025 2:24 PM CDT) Sodium 138 135 - 145 mmol/L Potassium, pl 3.9 3.3 - 4.9 mmol/L [facility] Comment:Hemolyzed; Potassium value may be falsely elevated by as much as 0.6-1.0 mmol/L. Suggest redraw and reanalysis. Chloride 93(L) 97 - 110 mmol/L [facility] Comment:Repeated and Verifie d CO2 31 22 - 32 mmol/L [facility] Anion gap 14 2 - 15 mmol/L [facility] BUN 35(H) 6 - 25 mg/dL [facility] Creatinine 1.67(H) 0.80 - 1.30 mg/dL [facility] Glucose 235(H) 70 - 199 mg/dL [facility] Comment: Interpretive Data Fasting glucose >/= 126 mg/dl is diagnostic for diabetes. Fasting is defined as no caloric intake for at least 8 hours. Fasting glucose between 100 mg/dl to 125 mg/dl is diagnostic of prediabetes. In a patient with classic symptoms of hyperglycemia or hyperglycemic crisis, a random glucose >/= 200 mg/dl is diagnostic for diabetes. In the absence of unequivocal hyperglycemia, results should be confirmed by repeat testing. The classification and Diagnosis of Diabetes Diabetes Care 202; 46: S19-S40. Current interpretive data was last revised 2022. Calcium 9.7 8.5 - 10.3 mg/dL [facility] Bilirubin, total 0.3 0.1 - 1.2 mg/dL [facility] Protein, pl 7.1 6.5 - 8.5 g/dL [facility] Albumin 3.0(L) 3.5 - 5.0 g/dL [facility] Alk phos 106 40 - 130 Units/L [facility] ALT 213(H) 7 - 55 Units/L [facility] AST 90(H) 10 - 50 Units/L [facility] Comment: Hemolyzed; result may be falsely elevated Reviewed Blood 01/02/2025 2:24 PM CDT 01/02/2025 2:44 PM CDT us Barbra Lopez MD LAB BLOOD ORDERABLES Final Result Performing Organization Address City/[facility] Co de Phone Number [facility] [place] [place] [address] * (ABNORMAL) POCT glucose (01/02/2025 2:15 PM CDT) Glucose, POC 240(H) 70 - 199 mg/dL Blood 01/02/2025 2:15 PM CDT 01/02/2025 2:15 PM CDT us Notinfile Unknown LAB POCT ORDERABLES - DEVICE F inal Result Performing Organization Address [facility] Co de Phone Number [facility] Department [place] [place] [address] * (ABNORMAL) POCT glucose (12/27/2024 11:05 AM CDT) Glucose, POC 257(H) 70 - 199 mg/dL Blood 12/27/2024 11:0 5 AM CDT 12/27/2024 11:05 AM CDT us Meño Chandra MD LAB POCT ORDERABLES - DEVICE Final Result Performing Organization Address [facility] Co de Phone Number [facility] [place] [place] [address] * POCT glucose (12/27/2024 7:59 AM CDT) Glucose, POC 192 70 - 199 mg/dL Blood 12/27/2024 7:59 AM CDT 12/27/2024 7:59 AM CDT Meño Chandra MD LAB POCT ORDERABLES - DEVICE Final Result [facility] Department [place] [address] * ECG 12 lead (12/27/2024 6:25 AM CDT) Pathologist [facility] Ventricular Rate EKG/Min 60 BPM [facility] Atrial Rate 60 BPM [facility] AL-Interval (MSEC) 240 ms [facility] QRS-Interval (MSEC) 102 ms [facility] QT-Interval (MSEC) 518 ms [facility] QTc 518 ms [facility] P Zalma 82 degrees [facility] R Zalma 60 degrees [facility] T Zalma -70 degrees [facility] Diagnosis Atrial-paced rhythm with prolonged AV conduction Poor data quality, interpretation may be adversely affected ST & T wave abnormality, consider anterolateral ischemia Abnormal ECG When compared with ECG of 24-DEC-2024 02:40, ST more depressed in Lateral leads Confirmed by MONICA VELASCO M.D ([id number]) on 12/28/2024 9:57:08 AM [facility] 12/27/2024 6:25 AM CDT 12/28/2024 9:57 AM CDT us Payton Lennon NP ECG ORDERABLES Final Result [facility] * POCT glucose (12/27/2024 1:24 AM CDT) Glucose, POC 121 70 - 199 mg/dL Blood 12/27/2024 1:24 AM CDT 12/27/2024 1:24 AM CDT us Meño Chandra MD LAB POCT ORDERABLES - DEVICE Final Result Performing Organization Address [facility] Co de Phone Number [facility] Department [place] [address] * (ABNORMAL) eGFR (12/26/2024 10:07 PM CDT) [facility] eGFR 43(L) >=60 mL/min/1. 73 m2 Comment: Interpretive Data Reference Interval Normal >/= 90 mL/min/1.73m2 Mildly decreased* 60 - 89 mL/min/1.73m2 Mildly to moderately decreased 45 - 59 mL/min/1.73m2 Moderately to severely decreased 30 - 44 mL/min/1.73m2 Severely decreased 15 - 29 mL/min/1.73m2 Kidney Failure < 15 mL/min/1.73m2 *Relative to young adult level Estimated glomerular filtration rate is determined by the 2020 CKD-EPI equation recommended by the National Kidney Foundation (A Unifying Approach to GFR Estimation: Recommendations of the NKF-ASK Task Force on Reassessing the Inclusion of Race in Diagnosing Kidney Disease, JASN 2020). The CKD-EPI equation should not be used for patients with unstable renal function and has not been validated in children and those over 70. Current interpretive data was last reviewed 2021. Blood 12/26/2024 10:0 7 PM CDT 12/26/2024 10:50 PM CDT us Radha Almonte NP LAB BLOOD ORDERABLES Final Result Performing Organization Address [facility] Co de Phone Number [facility] [place] [address] * (ABNORMAL) CBC without differential (12/26/2024 10:07 PM CDT) [facility] WBC 5.99 3.80 - 9.90 K/cumm Hgb 9.5(L) 13.0 - 17.5 g/dL [facility] Hct 29.3(L) 38.9 - 50.3 % [facility] Plt 196 150 - 400 K/cumm [facility] MPV 9.5 9.1 - 12.3 fL [facility] RBC 3.08(L) 4.30 - 5.80 M/cumm [facility] MCV 95.1 81.3 - 96.4 fL [facility] MCH 30.8 27.1 - 33.3 pg [facility] MCHC 32.4 32.3 - 35.7 g/dL [facility] RDW CV 17.3(H) 11.1 - 14.9 % [facility] RDW SD 58.9(H) 35.7 - 48.1 fL [facility] NRBC abs 0.00 0.00 - 0.01 K/cumm [facility] Blood 12/26/2024 10:0 7 PM CDT 12/26/2024 10:48 PM CDT us Meño Chandra MD LAB BLOOD ORDERABLES Final Result Performing Organization Address City/[facility]/ZIP Co de Phone Number [facility] Department [place] [address] * Type and screen (12/26/2024 10:07 PM CDT) Pathologist [facility], indirect Negative ABO Rh A Positive [facility] Blood 12/26/2024 10:0 7 PM CDT 12/26/2024 10:48 PM CDT Narrative [facility] - 12/26/2024 11:34 PM CDT Has the patient had Daratumumab or Isatuximab in the past 6 months?->Unknown us Radha Almonte NP LAB BLOOD BANK TEST ORDERA BLES Final Result [facility] [place] [address] * Phosphorus (12/26/2024 10:07 PM CDT) Phosphorus, pl 2.8 2.3 - 4.5 mg/dL Blood 12/26/2024 10:0 7 PM CDT 12/26/2024 10:50 PM CDT Meño Chandra MD LAB BLOOD ORDERABLES Final Result [facility] [place] [address] * Magnesium (12/26/2024 10:07 PM CDT) [facility] Magnesium 1.9 1.4 - 2.5 mg/dL Blood 12/26/2024 10:0 7 PM CDT 12/26/2024 10:50 PM CDT Meño Chandra MD LAB BLOOD ORDERABLES Final Result Performing Organization Address [facility] Co de Phone Number [facility] [place] [address] * (ABNORMAL) Basic metabolic panel (12/26/2024 10:07 PM CDT) [facility] Sodium 137 135 - 145 mmol/L Potassium, pl 3.7 3.3 - 4.9 mmol/L [facility] Chloride 105 97 - 110 mmol/L [facility] CO2 26 22 - 32 mmol/L [facility] Anion gap 6 2 - 15 mmol/L [facility] [facility] BUN 24 6 - 25 mg/dL [facility] Creatinine 1.63(H) 0.80 - 1.30 mg/dL [facility] Glucose 163 70 - 199 mg/dL [facility] Comment: Interpretive Data Fasting glucose >/= 126 mg/dl is diagnostic for diabetes. Fasting is defined as no caloric intake for at least 8 hours. Fasting glucose between 100 mg/dl to 125 mg/dl is diagnostic of prediabetes. In a patient with classic symptoms of hyperglycemia or hyperglycemic crisis, a random glucose >/= 200 mg/dl is diagnostic for diabetes. In the absence of unequivocal hyperglycemia, results should be confirmed by repeat testing. The classification and Diagnosis of Diabetes Diabetes Care 2021; 46: S19-S40. Current interpretive data was last revised 2022. Calcium 7.9(L) 8.5 - 10.3 mg/dL [facility] Blood 12/26/2024 10:0 7 PM CDT 12/26/2024 10:50 PM CDT Result [facility] Radha Almonte CLAIM BENEFIT SPECIALIST LAB BLOOD ORDERABLES Final Result Performing Organization Address City/[facility]/ZIP Co de Phone Number [facility] [place] [place] [address] * POCT glucose (12/26/2024 8:14 PM CDT) Glucose, POC 185 70 - 199 mg/dL Blood 12/26/2024 8:14 PM CDT 12/26/2024 8:14 PM CDT Meño Chandra MD LAB POCT ORDERABLES - DEVICE Final Result Performing Organization Address [facility] Co de Phone Number [facility] [place] [place] [address] * POCT glucose (12/26/2024 5:14 PM CDT) Glucose, POC 87 70 - 199 mg/dL Blood 12/26/2024 5:14 PM CDT 12/26/2024 5:14 PM CDT Result [facility] Meño Chandra MD LAB POCT ORDERABLES - DEVICE Final Result Performing Organization Address City/[facility] Co de Phone Number [facility] [place] [address] * (ABNORMAL) POCT glucose (12/26/2024 12:01 PM CDT) Glucose, POC 217(H) 70 - 199 mg/dL Blood 12/26/2024 12:0 1 PM CDT 12/26/2024 12:01 PM CDT Meño Chandra MD LAB POCT ORDERABLES - DEVICE Final Result Performing Organization Address [facility] de Phone Number [facility] [place] [address] * POCT glucose (12/26/2024 7:29 AM CDT) Glucose, POC 131 70 - 199 mg/dL Blood 12/26/2024 7:29 AM CDT 12/26/2024 7:29 AM CDT us Meño Chandra MD LAB POCT ORDERABLES - DEVICE Final Result Performing Organization Address [facility] de Phone Number [facility] [place] [address] * POCT glucose (12/26/2024 2:01 AM CDT) Glucose, POC 101 70 - 199 mg/dL Blood 12/26/2024 2:01 AM CDT 12/26/2024 2:01 AM CDT us Meño Chandra MD LAB POCT ORDERABLES - DEVICE Final Result Performing Organization Address [facility] de Phone Number [facility] [place] [place] [address] * (ABNORMAL) POCT glucose (12/25/2024 7:30 PM CDT) Glucose, POC 216(H) 70 - 199 mg/dL Blood 12/25/2024 7:30 PM CDT 12/25/2024 7:30 PM CDT us Meño Chandra MD LAB POCT ORDERABLES - DEVICE Final Result Performing Organization Address City/[facility]/ZIP Co de Phone Number [facility] [place] [place] [address] * POCT glucose (12/25/2024 5:39 PM CDT) Glucose, POC 117 70 - 199 mg/dL Blood 12/25/2024 5:39 PM CDT 12/25/2024 5:39 PM CDT us Meño Chandra MD LAB POCT ORDERABLES - DEVICE Final Result Performing Organization Address [facility] [place] [address] * (ABNORMAL) POCT glucose (12/25/2024 12:21 PM CDT) Glucose, POC 222(H) 70 - 199 mg/dL Blood 12/25/2024 12:2 1 PM CDT 12/25/2024 12:21 PM CDT us Meño Chandra MD LAB POCT ORDERABLES - DEVICE Final Result Performing Organization Address [facility]/ZIP Co de Phone Number [facility] [place] [address] * POCT glucose (12/25/2024 7:19 AM CDT) Glucose, POC 123 70 - 199 mg/dL Blood 12/25/2024 7:19 AM CDT 12/25/2024 7:19 AM CDT Meño Chandra MD LAB POCT ORDERABLES - DEVICE Final Result Performing Organization Address City/[facility]/ZIP Co de Phone Number [facility] [place] [place] [address] * POCT glucose (12/25/2024 3:55 AM CDT) Glucose, POC 119 70 - 199 mg/dL Blood 12/25/2024 3:55 AM CDT 12/25/2024 3:55 AM CDT us Meño Chandra MD LAB POCT ORDERABLES - DEVICE Final Result Performing Organization Address City/[facility]/ZIP Co de Phone Number [facility] Department [place] [address] * (ABNORMAL) eGFR (12/24/2024 8:56 PM CDT) eGFR 36(L) >=60 mL/min/1. 73 m2 Comment: Interpretive Data Reference Interval Normal >/= 90 mL/min/1.73m2 Mildly decreased* 60 - 89 mL/min/1.73m2 Mildly to moderately decreased 45 - 59 mL/min/1.73m2 Moderately to severely decreased 30 - 44 mL/min/1.73m2 Severely decreased 15 - 29 mL/min/1.73m2 Kidney Failure < 15 mL/min/1.73m2 *Relative to young adult level Estimated glomerular filtration rate is determined by the 2020 CKD-EPI equation recommended by the National Kidney Foundation (A Unifying Approach to GFR Estimation: Recommendations of the NKF-ASK Task Force on Reassessing the Inclusion of Race in Diagnosing Kidney Disease, JASN 202). The CKD-EPI equation should not be used for patients with unstable renal function and has not been validated in children and those over 70. Current interpretive data was last reviewed 2021. Blood 12/24/2024 8:56 PM CDT 12/24/2024 9:52 PM CDT us Radha Almonte NP LAB BLOOD ORDERABLES Final Result [facility] Department [place] [address] * (ABNORMAL) CBC without differential (12/24/2024 8:56 PM CDT) [facility] WBC 7.28 3.80 - 9.90 K/cumm Hgb 9.2(L) 13.0 - 17.5 g/dL [facility] Hct 28.8(L) 38.9 - 50.3 % [facility] Plt 224 150 - 400 K/cumm [facility] MPV 9.7 9.1 - 12.3 fL [facility] RBC 2.99(L) 4.30 - 5.80 M/cumm [facility] MCV 96.3 81.3 - 96.4 fL [facility] MCH 30.8 27.1 - 33.3 pg [facility] MCHC 31.9(L) 32.3 - 35.7 g/dL [facility] RDW CV 17.6(H) 11.1 - 14.9 % [facility] RDW SD 60.9(H) 35.7 - 48.1 fL [facility] NRBC abs 0.00 0.00 - 0.01 K/cumm [facility] Blood 12/24/2024 8:56 PM CDT 12/24/2024 9:52 PM CDT Meño Chandra MD LAB BLOOD ORDERABLES Final Result Performing Organization Address City/[facility] Co de Phone Number [facility] Department [place] [place] [address] * Phosphorus (12/24/2024 8:56 PM CDT) [facility] Phosphorus, pl 3.1 2.3 - 4.5 mg/dL Blood 12/24/2024 8:56 PM CDT 12/24/2024 9:52 PM CDT Meño Chandra MD LAB BLOOD ORDERABLES Final Result Performing Organization Address City[facility]/ZIP Co de Phone Number [facility] Department [place] [address] * Magnesium (12/24/2024 8:56 PM CDT) Magnesium 2.2 1.4 - 2.5 mg/dL Blood 12/24/2024 8:56 PM CDT 12/24/2024 9:52 PM CDT us Meño Chandra MD LAB BLOOD ORDERABLES Final Result [facility] [place] [address] * (ABNORMAL) Basic metabolic panel (12/24/2024 8:56 PM CDT) Pathologist [facility] Sodium 136 135 - 145 mmol/L Potassium, pl 4.0 3.3 - 4.9 mmol/L [facility] Chloride 103 97 - 110 mmol/L [facility] CO2 26 22 - 32 mmol/L [facility] Anion gap 7 2 - 15 mmol/L [facility] BUN 35(H) 6 - 25 mg/dL [facility] Creatinine 1.91(H) 0.80 - 1.30 mg/dL [facility] Glucose 129 70 - 199 mg/dL [facility] Comment: Interpretive Data Fasting glucose >/= 126 mg/dl is diagnostic for diabetes. Fasting is defined as no caloric intake for at least 8 hours. Fasting glucose between 100 mg/dl to 125 mg/dl is diagnostic of prediabetes. In a patient with classic symptoms of hyperglycemia or hyperglycemic crisis, a random glucose >/= 200 mg/dl is diagnostic for diabetes. In the absence of unequivocal hyperglycemia, results should be confirmed by repeat testing. The classification and Diagnosis of Diabetes Diabetes Care 202; 46: S19-S40. Current interpretive data was last revised 2022. Calcium 8.1(L) 8.5 - 10.3 mg/dL [facility] Blood 12/24/2024 8:56 PM CDT 12/24/2024 9:52 PM CDT us Radha Almonte NP LAB BLOOD ORDERABLES Final Result Performing Organization Address [facility]/ZIP Co de Phone Number [facility] [place] [address] * POCT glucose (12/24/2024 8:40 PM CDT) Glucose, POC 167 70 - 199 mg/dL Blood 12/24/2024 8:40 PM CDT 12/24/2024 8:40 PM CDT Meño Chandra MD LAB POCT ORDERABLES - [place] [address] * POCT glucose (12/24/2024 5:19 PM CDT) Glucose, POC 150 70 - 199 mg/dL Blood 12/24/2024 5:19 PM CDT 12/24/2024 5:19 PM CDT Meño Chandra MD LAB POCT ORDERABLES - DEVICE Final Result [facility] [place] [place] [address] * POCT glucose (12/24/2024 12:40 PM CDT) Glucose, POC 169 70 - 199 mg/dL Blood 12/24/2024 12:4 0 PM CDT 12/24/2024 12:40 PM CDT Meño Chandra MD LAB POCT ORDERABLES - DEVICE Final Result [facility] [place] [address] * POCT glucose (12/24/2024 8:55 AM CDT) Glucose, POC 127 70 - 199 mg/dL Blood 12/24/2024 8:55 AM CDT 12/24/2024 8:55 AM CDT Meño Chandra MD LAB POCT ORDERABLES - DEVICE Final Result Performing Organization Address [facility] Co de Phone Number [facility] Department [place] [address] * ECG 12 lead (12/24/2024 2:40 AM CDT) [facility] Ventricular Rate EKG/Min 60 BPM [facility] Atrial Rate 60 BPM [facility] AL-Interval (MSEC) 272 ms [facility] QRS-Interval (MSEC) 90 ms [facility] QT-Interval (MSEC) 542 ms [facility] QTc 542 ms [facility] P Zalma 57 degrees [facility] R Zalma -11 degrees [facility] T Zalma 152 degrees [facility] Diagnosis Atrial-paced rhythm with prolonged AV conduction Long QT interval T inversion anterior leads consider anterior ischemia or stress cardiomyopathy Abnormal ECG When compared with ECG of 23-DEC-2024 09:59, No significant change was found Confirmed by fellow Braxton Perea ([id number]) on 12/26/2024 9:10:27 AM Confirmed by MONICA VELASCO M.D ([id number]) on 12/26/2024 10:19:22 AM [facility] 12/24/2024 2:40 AM CDT 12/26/2024 10:19 AM CDT us Jinny Simms CLAIM BENEFIT SPECIALIST ECG ORDERABLES Final Result Performing Organization Address City/[facility]/ZIP Co de Phone Number [facility] * POCT glucose (12/24/2024 2:16 AM CDT) Glucose, POC 124 70 - 199 mg/dL Blood 12/24/2024 2:16 AM CDT 12/24/2024 2:16 AM CDT us Meño Chandra MD LAB POCT ORDERABLES - DEVICE Final Result Performing Organization Address [facility] Co de Phone Number [facility] [place] [address] * (ABNORMAL) eGFR (12/23/2024 10:27 PM CDT) eGFR 31(L) >=60 mL/min/1. 73 m2 Comment: Interpretive Data Reference Interval Normal >/= 90 mL/min/1.73m2 Mildly decreased* 60 - 89 mL/min/1.73m2 Mildly to moderately decreased 45 - 59 mL/min/1.73m2 Moderately to severely decreased 30 - 44 mL/min/1.73m2 Severely decreased 15 - 29 mL/min/1.73m2 Kidney Failure < 15 mL/min/1.73m2 *Relative to young adult level Estimated glomerular filtration rate is determined by the 2020 CKD-EPI equation recommended by the National Kidney Foundation (A Unifying Approach to GFR Estimation: Recommendations of the NKF-ASK Task Force on Reassessing the Inclusion of Race in Diagnosing Kidney Disease, JASN 2020). The CKD-EPI equation should not be used for patients with unstable renal function and has not been validated in children and those over 70. Current interpretive data was last reviewed 2021. Blood 12/23/2024 10:2 7 PM CDT 12/23/2024 10:52 PM CDT Radha Almonte NP LAB BLOOD ORDERABLES Final Result Performing Organization Address [facility] Co de Phone Number [facility] [place] [address] * (ABNORMAL) Protime-INR (12/23/2024 10:27 PM CDT) PT 19.1(H) 9.7 - 13.0 sec INR 1.75(H) 0.90 - 1.20 [facility] Comment: Interpretive data Oral anticoagulant therapeutic ranges: Venous thromboembolism prophylaxis or treatment: 2.0-3.0 CARDIOLOGY Standard range: 2.0-3.0 High-intensity range: 2.5-3.5 Refer to indication-specific guidelines for appropriate target ranges for prosthetic heart valve replacement. Current interpretive data was last revised on 2019. Blood 12/23/2024 10:2 7 PM CDT 12/23/2024 10:47 PM CDT Meño Chandra MD LAB BLOOD ORDERABLES Final Result [facility] Department [place] [address] * (ABNORMAL) CBC without differential (12/23/2024 10:27 PM CDT) WBC 7.67 3.80 - 9.90 K/cumm Hgb 8.7(L) 13.0 - 17.5 g/dL [facility] Hct 26.2(L) 38.9 - 50.3 % [facility] Plt 217 150 - 400 K/cumm [facility] MPV 9.4 9.1 - 12.3 fL [facility] RBC 2.73(L) 4.30 - 5.80 M/cumm [facility] MCV 96.0 81.3 - 96.4 fL [facility] MCH 31.9 27.1 - 33.3 pg [facility] MCHC 33.2 32.3 - 35.7 g/dL [facility] RDW CV 17.7(H) 11.1 - 14.9 % [facility] RDW SD 59.2(H) 35.7 - 48.1 fL [facility] NRBC abs 0.02(H) 0.00 - 0.01 K/cumm [facility] Blood 12/23/2024 10:2 7 PM CDT 12/23/2024 10:53 PM CDT Meño Chandra MD LAB BLOOD ORDERABLES Final Result Performing Organization Address City/[facility]/ZIP Co de Phone Number [facility] Department [place] [address] * Type and screen (12/23/2024 10:27 PM CDT) Terry, indirect Negative ABO Rh A Positive [facility] Blood 12/23/2024 10:2 7 PM CDT 12/23/2024 10:53 PM CDT Narrative [facility] - 12/23/2024 11:53 PM CDT Has the patient had Daratumumab or Isatuximab in the past 6 months?->Unknown Radha Almonte NP LAB BLOOD BANK TEST ORDERA BLES Final Result Performing Organization Address City/[facility]/ZIP Co de Phone Number [facility] Department [place] [address] * Phosphorus (12/23/2024 10:27 PM CDT) Pathologist [facility] Phosphorus, pl 2.9 2.3 - 4.5 mg/dL Blood 12/23/2024 10:2 7 PM CDT 12/23/2024 10:52 PM CDT eMño Chandra MD LAB BLOOD ORDERABLES Final Result Performing Organization Address City/[facility]/ZIP Co de Phone Number [facility] Department [place] [address] * Magnesium (12/23/2024 10:27 PM CDT) [facility] Magnesium 2.3 1.4 - 2.5 mg/dL Blood 12/23/2024 10:2 7 PM CDT 12/23/2024 10:52 PM CDT Meño Chandra MD LAB BLOOD ORDERABLES Final Result Performing Organization Address City[facility]/ZIP Co de Phone Number [facility] Department [place] [address] * (ABNORMAL) Basic metabolic panel (12/23/2024 10:27 PM CDT) Pathologist [facility] Sodium 137 135 - 145 mmol/L Potassium, pl 3.8 3.3 - 4.9 mmol/L [facility] Chloride 104 97 - 110 mmol/L [facility] CO2 27 22 - 32 mmol/L [facility] Anion gap 6 2 - 15 mmol/L [facility] BUN 42(H) 6 - 25 mg/dL [facility] Creatinine 2.16(H) 0.80 - 1.30 mg/dL [facility] Glucose 123 70 - 199 mg/dL [facility] Comment: Interpretive Data Fasting glucose >/= 126 mg/dl is diagnostic for diabetes. Fasting is defined as no caloric intake for at least 8 hours. Fasting glucose between 100 mg/dl to 125 mg/dl is diagnostic of prediabetes. In a patient with classic symptoms of hyperglycemia or hyperglycemic crisis, a random glucose >/= 200 mg/dl is diagnostic for diabetes. In the absence of unequivocal hyperglycemia, results should be confirmed by repeat testing. The classification and Diagnosis of Diabetes Diabetes Care 202; 46: S19-S40. Current interpretive data was last revised 2022. Calcium 7.7(L) 8.5 - 10.3 mg/dL [facility] Blood 12/23/2024 10:2 7 PM CDT 12/23/2024 10:52 PM CDT us Radha Almonte NP LAB BLOOD ORDERABLES Final Result [facility] Department [place] [address] * POCT glucose (12/23/2024 8:08 PM CDT) Glucose, POC 188 70 - 199 mg/dL Blood 12/23/2024 8:08 PM CDT 12/23/2024 8:08 PM CDT us Meño Chandra MD LAB POCT ORDERABLES - DEVICE Final Result Performing Organization Address City/[facility] Co de Phone Number [facility] [place] [place] [address] * (ABNORMAL) POCT glucose (12/23/2024 5:27 PM CDT) Glucose, POC 221(H) 70 - 199 mg/dL Blood 12/23/2024 5:27 PM CDT 12/23/2024 5:27 PM CDT Meño Chandra MD LAB POCT ORDERABLES - DEVICE Final Result Performing Organization Address [facility] Co de Phone Number [facility] [place] [address] * (ABNORMAL) POCT glucose (12/23/2024 12:02 PM CDT) Glucose, POC 296(H) 70 - 199 mg/dL Blood 12/23/2024 12:0 2 PM CDT 12/23/2024 12:02 PM CDT Meño Chandra MD LAB POCT ORDERABLES - DEVICE Final Result Performing Organization Address [facility] Co de Phone Number [facility] [place] [address] * (ABNORMAL) POCT glucose (12/23/2024 11:34 AM CDT) Glucose, POC 323(H) 70 - 199 mg/dL Blood 12/23/2024 11:3 4 AM CDT 12/23/2024 11:34 AM CDT Meño Chandra MD LAB POCT ORDERABLES - DEVICE Final Result Performing Organization Address City/[facility]/ZIP Co de Phone Number [facility] [place] [address] * ECG 12 lead (12/23/2024 9:59 AM CDT) [facility] Ventricular Rate EKG/Min 60 BPM [facility] Atrial Rate 60 BPM [facility] AL-Interval (MSEC) 272 ms [facility] QRS-Interval (MSEC) 96 ms [facility] QT-Interval (MSEC) 542 ms [facility] QTc 542 ms [facility] P Zalma 50 degrees [facility] R Zalma 1 degrees [facility] T Zalma 157 degrees [facility] Diagnosis Atrial-paced rhythm with prolonged AV conduction ST & T wave abnormality, consider anterolateral ischemia Prolonged QT Abnormal ECG When compared with ECG of 14-DEC-2024 23:52, Electronic atrial pacemaker has replaced Electronic ventricular pacemaker Confirmed by SILAS CARLIN M.D ([id number]) on 12/23/2024 12:32:56 PM [facility] 12/23/2024 9:59 AM CDT 12/23/2024 12:32 PM CDT us Payton Lennon NP ECG ORDERABLES Final Result [facility] * POCT glucose (12/23/2024 8:06 AM CDT) Pathologist [facility] Glucose, POC 161 70 - 199 mg/dL Blood 12/23/2024 8:06 AM CDT 12/23/2024 8:06 AM CDT us Meño Chandra MD LAB POCT ORDERABLES - DEVICE Final Result [facility] Department [place] [address] * XR Chest 1 View (12/23/2024 7:48 AM CDT) Anatomical Region Laterality Modality Body, Chest N/A Digital Radiogra phy 12/23/2024 10:1 1 AM CDT Impressions 12/23/2024 3:20 PM CDT The current study is compared with the prior radiograph dated 12/21/2024. Median sternotomy plates and screws. Left subclavian approach pacer device leads overlie the right atrium and right ventricle. Some improvement in aeration of the left lower lung, residual mild atelectasis. Left pleural effusion, no definite right pleural effusion. No pneumothorax. Heart and mediastinal contours are unchanged. Dictated by: Taniya Maloney M.D. The radiology attending physician has personally reviewed this study, and had reviewed and/or edited this written report and agrees with it. Electronically signed by: David Aguilar M.D. Narrative 12/23/2024 3:20 PM CDT EXAMINATION: 1 view chest radiograph Procedure Note David Aguilar MD - 12/23/2024 EXAMINATION: 1 view chest radiograph IMPRESSION: The current study is compared with the prior radiograph dated 12/21/2024. Median sternotomy plates and screws. Left subclavian approach pacer device leads overlie the right atrium and right ventricle. Some improvement in aeration of the left lower lung, residual mild atelectasis. Left pleural effusion, no definite right pleural effusion. No pneumothorax. Heart and mediastinal contours are unchanged. Dictated by: Taniya Maloney M.D. The radiology attending physician has personally reviewed this study, and had reviewed and/or edited this written report and agrees with it. Electronically signed by: David Aguilar M.D. us Cher Nicholas CLAIM BENEFIT SPECIALIST IMG XR PROCEDURES Final Res ult * POCT glucose (12/23/2024 1:43 AM CDT) Glucose, POC 125 70 - 199 mg/dL Blood 12/23/2024 1:43 AM CDT 12/23/2024 1:43 AM CDT us Meño Chandra MD LAB POCT ORDERABLES - DEVICE Final Result [facility] [place] [address] * (ABNORMAL) eGFR (12/22/2024 10:13 PM CDT) eGFR 29(L) >=60 mL/min/1. 73 m2 Comment: Interpretive Data Reference Interval Normal >/= 90 mL/min/1.73m2 Mildly decreased* 60 - 89 mL/min/1.73m2 Mildly to moderately decreased 45 - 59 mL/min/1.73m2 Moderately to severely decreased 30 - 44 mL/min/1.73m2 Severely decreased 15 - 29 mL/min/1.73m2 Kidney Failure < 15 mL/min/1.73m2 *Relative to young adult level Estimated glomerular filtration rate is determined by the 2020 CKD-EPI equation recommended by the National Kidney Foundation (A Unifying Approach to GFR Estimation: Recommendations of the NKF-ASK Task Force on Reassessing the Inclusion of Race in Diagnosing Kidney Disease, JASN 2020). The CKD-EPI equation should not be used for patients with unstable renal function and has not been validated in children and those over 70. Current interpretive data was last reviewed 2021. Blood 12/22/2024 10:1 3 PM CDT 12/22/2024 10:57 PM CDT us Radha Almonte NP LAB BLOOD ORDERABLES Final Result [facility] Department [place] [address] * (ABNORMAL) Protime-INR (12/22/2024 10:13 PM CDT) PT 16.4(H) 9.7 - 13.0 sec INR 1.51(H) 0.90 - 1.20 [facility] Comment: Interpretive data Oral anticoagulant therapeutic ranges: Venous thromboembolism prophylaxis or treatment: 2.0-3.0 CARDIOLOGY Standard range: 2.0-3.0 High-intensity range: 2.5-3.5 Refer to indication-specific guidelines for appropriate target ranges for prosthetic heart valve replacement. Current interpretive data was last revised on 2019. Blood 12/22/2024 10:1 3 PM CDT 12/22/2024 10:56 PM CDT Meño Chandra MD LAB BLOOD ORDERABLES Final Result Performing Organization Address [facility] Co de Phone Number [facility] [place] [place] [address] * (ABNORMAL) CBC without differential (12/22/2024 10:13 PM CDT) WBC 11.84(H) 3.80 - 9.90 K/cumm Hgb 8.8(L) 13.0 - 17.5 g/dL [facility] Hct 28.3(L) 38.9 - 50.3 % [facility] Plt 226 150 - 400 K/cumm [facility] MPV 9.9 9.1 - 12.3 fL [facility] RBC 2.86(L) 4.30 - 5.80 M/cumm [facility] MCV 99.0(H) 81.3 - 96.4 fL [facility] MCH 30.8 27.1 - 33.3 pg [facility] [facility] MCHC 31.1(L) 32.3 - 35.7 g/dL [facility] RDW CV 17.9(H) 11.1 - 14.9 % [facility] RDW SD 58.7(H) 35.7 - 48.1 fL [facility] NRBC abs 0.10(H) 0.00 - 0.01 K/cumm [facility] Blood 12/22/2024 10:1 3 PM CDT 12/22/2024 10:57 PM CDT Meño Chandra MD LAB BLOOD ORDERABLES Final Result Performing Organization Address City/[facility]/ZIP Co de Phone Number [facility] [place] [place] [address] * Phosphorus (12/22/2024 10:13 PM CDT) [facility] Phosphorus, pl 2.9 2.3 - 4.5 mg/dL Blood 12/22/2024 10:1 3 PM CDT 12/22/2024 10:57 PM CDT Meño Chandra MD LAB BLOOD ORDERABLES Final Result Performing Organization Address City/[facility]/ZIP Co de Phone Number [facility] [place] [address] * Magnesium (12/22/2024 10:13 PM CDT) [facility] Magnesium 2.2 1.4 - 2.5 mg/dL Blood 12/22/2024 10:1 3 PM CDT 12/22/2024 10:57 PM CDT Meño Chandra MD LAB BLOOD ORDERABLES Final Result Performing Organization Address City/[facility] Co de Phone Number [facility] [place] [address] * (ABNORMAL) Basic metabolic panel (12/22/2024 10:13 PM CDT) [facility] Sodium 139 135 - 145 mmol/L Potassium, pl 3.9 3.3 - 4.9 mmol/L [facility] Chloride 104 97 - 110 mmol/L [facility] CO2 26 22 - 32 mmol/L [facility] Anion gap 9 2 - 15 mmol/L [facility] BUN 43(H) 6 - 25 mg/dL [facility] Creatinine 2.29(H) 0.80 - 1.30 mg/dL [facility] Glucose 144 70 - 199 mg/dL [facility] Comment: Interpretive Data Fasting glucose >/= 126 mg/dl is diagnostic for diabetes. Fasting is defined as no caloric intake for at least 8 hours. Fasting glucose between 100 mg/dl to 125 mg/dl is diagnostic of prediabetes. In a patient with classic symptoms of hyperglycemia or hyperglycemic crisis, a random glucose >/= 200 mg/dl is diagnostic for diabetes. In the absence of unequivocal hyperglycemia, results should be confirmed by repeat testing. The classification and Diagnosis of Diabetes Diabetes Care 2021; 46: S19-S40. Current interpretive data was last revised 2022. Calcium 7.8(L) 8.5 - 10.3 mg/dL [facility] Blood 12/22/2024 10:1 3 PM CDT 12/22/2024 10:57 PM CDT Radha Almonte CLAIM BENEFIT SPECIALIST LAB BLOOD ORDERABLES Final Result [facility] [place] [place] [address] * POCT glucose (12/22/2024 10:12 PM CDT) Glucose, POC 153 70 - 199 mg/dL Blood 12/22/2024 10:1 2 PM CDT 12/22/2024 10:12 PM CDT Meño Chandra MD LAB POCT ORDERABLES - DEVICE Final Result Performing Organization Address City/[facility]/ZIP Co de Phone Number [facility] Department [place] [place] [address] * POCT glucose (12/22/2024 10:10 PM CDT) Glucose, POC 157 70 - 199 mg/dL Blood 12/22/2024 10:1 0 PM CDT 12/22/2024 10:10 PM CDT Meño Chandra MD LAB POCT ORDERABLES - DEVICE Final Result Performing Organization Address City/[facility]/ZIP Co de Phone Number [facility] [place] [address] * POCT glucose (12/22/2024 5:30 PM CDT) Glucose, POC 128 70 - 199 mg/dL Blood 12/22/2024 5:30 PM CDT 12/22/2024 5:30 PM CDT Meño Chandra MD LAB POCT ORDERABLES - DEVICE Final Result Performing Organization Address [facility] Co de Phone Number [facility] [place] [place] [address] * (ABNORMAL) POCT glucose (12/22/2024 11:40 AM CDT) Glucose, POC 208(H) 70 - 199 mg/dL Blood 12/22/2024 11:4 0 AM CDT 12/22/2024 11:40 AM CDT Meño Chandra MD LAB POCT ORDERABLES - DEVICE Final Result Performing Organization Address [facility] Co de Phone Number [facility] [place] [address] * POCT glucose (12/22/2024 8:03 AM CDT) Glucose, POC 110 70 - 199 mg/dL Blood 12/22/2024 8:03 AM CDT 12/22/2024 8:03 AM CDT Meño Chandra MD LAB POCT ORDERABLES - DEVICE Final Result Performing Organization Address [facility] Co de Phone Number [facility] [place] [place] [address] * POCT glucose (12/22/2024 1:20 AM CDT) Glucose, POC 105 70 - 199 mg/dL Blood 12/22/2024 1:20 AM CDT 12/22/2024 1:20 AM CDT Meño Chandra MD LAB POCT ORDERABLES - DEVICE Final Result Performing Organization Address [facility] Co de Phone Number [facility] [place] [address] * (ABNORMAL) eGFR (12/21/2024 9:26 PM CDT) eGFR 25(L) >=60 mL/min/1. 73 m2 Comment: Interpretive Data Reference Interval Normal >/= 90 mL/min/1.73m2 Mildly decreased* 60 - 89 mL/min/1.73m2 Mildly to moderately decreased 45 - 59 mL/min/1.73m2 Moderately to severely decreased 30 - 44 mL/min/1.73m2 Severely decreased 15 - 29 mL/min/1.73m2 Kidney Failure < 15 mL/min/1.73m2 *Relative to young adult level Estimated glomerular filtration rate is determined by the 2020 CKD-EPI equation recommended by the National Kidney Foundation (A Unifying Approach to GFR Estimation: Recommendations of the NKF-ASK Task Force on Reassessing the Inclusion of Race in Diagnosing Kidney Disease, JASN 2020). The CKD-EPI equation should not be used for patients with unstable renal function and has not been validated in children and those over 70. Current interpretive data was last reviewed 2021. Blood 12/21/2024 9:26 PM CDT 12/21/2024 10:19 PM CDT us Radha Almonte NP LAB BLOOD ORDERABLES Final Result Performing Organization Address City/[facility]/ZIP Co de Phone Number [facility] [place] [address] * (ABNORMAL) Protime-INR (12/21/2024 9:26 PM CDT) PT 17.8(H) 9.7 - 13.0 sec INR 1.63(H) 0.90 - 1.20 [facility] Comment: Interpretive data Oral anticoagulant therapeutic ranges: Venous thromboembolism prophylaxis or treatment: 2.0-3.0 CARDIOLOGY Standard range: 2.0-3.0 High-intensity range: 2.5-3.5 Refer to indication-specific guidelines for appropriate target ranges for prosthetic heart valve replacement. Current interpretive data was last revised on 2019. Blood 12/21/2024 9:26 PM CDT 12/21/2024 10:18 PM CDT us Meño Chandra MD LAB BLOOD ORDERABLES Final Result [facility] [place] [address] * (ABNORMAL) CBC without differential (12/21/2024 9:26 PM CDT) WBC 13.75(H) 3.80 - 9.90 K/cumm Hgb 8.6(L) 13.0 - 17.5 g/dL [facility] Hct 27.4(L) 38.9 - 50.3 % [facility] Plt 230 150 - 400 K/cumm [facility] MPV 9.5 9.1 - 12.3 fL [facility] RBC 2.79(L) 4.30 - 5.80 M/cumm [facility] MCV 98.2(H) 81.3 - 96.4 fL [facility] MCH 30.8 27.1 - 33.3 pg [facility] MCHC 31.4(L) 32.3 - 35.7 g/dL [facility] RDW CV 17.2(H) 11.1 - 14.9 % [facility] RDW SD 54.3(H) 35.7 - 48.1 fL [facility] NRBC abs 0.05(H) 0.00 - 0.01 K/cumm [facility] Blood 12/21/2024 9:26 PM CDT 12/21/2024 10:19 PM CDT Meño Chandra MD LAB BLOOD ORDERABLES Final Result [facility] [place] [address] * Phosphorus (12/21/2024 9:26 PM CDT) [facility] Phosphorus, pl 2.9 2.3 - 4.5 mg/dL Blood 12/21/2024 9:26 PM CDT 12/21/2024 10:19 PM CDT Meño Chandra MD LAB BLOOD ORDERABLES Final Result Performing Organization Address City/[facility]/ZIP Co de Phone Number [facility] [place] [address] * Magnesium (12/21/2024 9:26 PM CDT) [facility] Magnesium 2.3 1.4 - 2.5 mg/dL Blood 12/21/2024 9:26 PM CDT 12/21/2024 10:19 PM CDT Meño Chandra MD LAB BLOOD ORDERABLES Final Result Performing Organization Address City/[facility] Co de Phone Number [facility] Department [place] [address] * (ABNORMAL) Basic metabolic panel (12/21/2024 9:26 PM CDT) [facility] Sodium 136 135 - 145 mmol/L Potassium, pl 4.0 3.3 - 4.9 mmol/L [facility] Chloride 104 97 - 110 mmol/L [facility] CO2 23 22 - 32 mmol/L [facility] Anion gap 9 2 - 15 mmol/L [facility] BUN 41(H) 6 - 25 mg/dL [facility] Creatinine 2.54(H) 0.80 - 1.30 mg/dL [facility] Glucose 117 70 - 199 mg/dL [facility] Comment: Interpretive Data Fasting glucose >/= 126 mg/dl is diagnostic for diabetes. Fasting is defined as no caloric intake for at least 8 hours. Fasting glucose between 100 mg/dl to 125 mg/dl is diagnostic of prediabetes. In a patient with classic symptoms of hyperglycemia or hyperglycemic crisis, a random glucose >/= 200 mg/dl is diagnostic for diabetes. In the absence of unequivocal hyperglycemia, results should be confirmed by repeat testing. The classification and Diagnosis of Diabetes Diabetes Care 2021; 46: S19-S40. Current interpretive data was last revised 2022. Calcium 7.8(L) 8.5 - 10.3 mg/dL [facility] Blood 12/21/2024 9:26 PM CDT 12/21/2024 10:19 PM CDT Radha Almonte NP LAB BLOOD ORDERABLES Final Result Performing Organization Address [facility] Co de Phone Number [facility] Department [place] [address] * POCT glucose (12/21/2024 8:46 PM CDT) Glucose, POC 144 70 - 199 mg/dL Blood 12/21/2024 8:46 PM CDT 12/21/2024 8:46 PM CDT Result [facility] Meño Chandra MD LAB POCT ORDERABLES - DEVICE Final Result Performing Organization Address [facility] de Phone Number [facility] [place] [address] * POCT glucose (12/21/2024 5:26 PM CDT) Glucose, POC 95 70 - 199 mg/dL Blood 12/21/2024 5:26 PM CDT 12/21/2024 5:26 PM CDT Meño Chandra MD LAB POCT ORDERABLES - DEVICE Final Result Performing Organization Address [facility] de Phone Number [facility] Department [place] [address] * POCT glucose (12/21/2024 12:20 PM CDT) Glucose, POC 149 70 - 199 mg/dL Blood 12/21/2024 12:2 0 PM CDT 12/21/2024 12:20 PM CDT us Meño Chandra MD LAB POCT ORDERABLES - DEVICE Final Result [facility] [place] [address] * XR Chest 1 Vw (12/21/2024 11:53 AM CDT) Anatomical Region Laterality Modality Body, Chest N/A Computed Radiogr aphy 12/21/2024 2:09 PM CDT Impressions 12/21/2024 3:30 PM CDT The current study is compared with the prior radiograph dated 12/21/2024 An atrio-ventricular pacer device is in place with leads overlying expected position. Median sternotomy plates and screws appear intact. Stable mild left atelectasis. Improved right atelectasis. No pneumothorax. Heart and mediastinal silhouette both enlarged though stable from previous. Dictated by: Prosper Salazar M.D. The radiology attending physician has personally reviewed this study, and had reviewed and/or edited this written report and agrees with it. Electronically signed by: Canelo Loza M.D. Narrative 12/21/2024 3:30 PM CDT EXAMINATION: 1 view chest radiograph Procedure Note Canelo Loza MD - 12/21/2024 EXAMINATION: 1 view chest radiograph IMPRESSION: The current study is compared with the prior radiograph dated 12/21/2024 An atrio-ventricular pacer device is in place with leads overlying expected position. Median sternotomy plates and screws appear intact. Stable mild left atelectasis. Improved right atelectasis. No pneumothorax. Heart and mediastinal silhouette both enlarged though stable from previous. Dictated by: Prosper Salazar M.D. The radiology attending physician has personally reviewed this study, and had reviewed and/or edited this written report and agrees with it. Electronically signed by: Canelo Loza M.D. Nevaeh Israel [facility] IMG XR PROCEDURES Final Result * Cell Differential, Body Fluid (12/21/2024 11:14 AM CDT) Total cells diffed 100 cells Comment: Interpretive Data Unless otherwise specified, the reference range and other method performance specifications have not been established for CSF/Body Fluid tests. The test results should be integrated into the clinical context for interpretation. Current interpretive data was last revised on 2019. Neutrophils, fld 9 % [facility] Lymphs, fld 42 % [facility] Monocyte, fld 4 % [facility] Macrophages, fld 45 % [facility] Fluid 12/21/2024 11:1 4 AM CDT 12/21/2024 1:26 PM CDT Nevaeh Israel [facility] LAB BODY FLUIDS AND STO OLS ORDERABLES Final Result [facility] Department [place] [address] * (ABNORMAL) Cell count w/rflx diff, body fluid (12/21/2024 11:14 AM CDT) Specimen type, fld Pleural Body site, fld Pleural fluid, right [facility] Color, fld Red [facility] Clarity, fld Cloudy(A) Clear [facility] Nucleated cells, fld 695 /cumm [facility] Comment: Interpretive Data Unless otherwise specified, the reference range and other method performance specifications have not been established for CSF/Body Fluid tests. The test results should be integrated into the clinical context for interpretation. Current interpretive data was last revised on 2019. RBC, fld 59,512 /cumm [facility] Fluid 12/21/2024 11:1 4 AM CDT 12/21/2024 1:26 PM CDT Nevaeh Israel [facility] LAB BODY FLUIDS AND STO OLS ORDERABLES Final Result Performing Organization Address [facility] de Phone Number [facility] [place] [address] * Mycology (fungal) culture and stain Pleural fluid Chest, right (12/21/2024 11:14 AM CDT) Direct Specimen Exam Stain: No Fungal elements seen. Report Final Report: No growth of fungus [facility] Pleural fluid (Chest, right) 12/21/2024 11:14 AM CDT 12/21/2024 1:43 PM CDT Narrative [facility] - 01/18/2025 7:55 AM CDT Testing performed by [facility] ([phone]). Nevaeh Israel [facility] LAB MICROBIOLOGY - GENE RAL ORDERABLES Final Result Performing Organization Address [facility] de Phone Number [facility] [place] [address] * Aerobic and anaerobic culture and gram stain Pleural fluid Chest, right (12/21/2024 11:14 AM CDT) Direct Specimen Exam Stain: Cytospin Gram stain shows: Few polymorphonuclear leukocytes seen. Other cellular material present. No organisms seen. Report Final Report: No growth [facility] Pleural fluid (Chest, right) 12/21/2024 11:14 AM CDT 12/21/2024 1:43 PM CDT Narrative [facility] - 12/27/2024 2:41 PM CDT Testing performed by [facility] ([phone]) Specimens submitted from normally sterile body sites will have all bacterial morphotypes identified. Specimens that contain grossly mixed el and/or are from body sites that are not normally sterile will be examined for Staphylococcus aureus, Pseudomonas aeruginosa, beta-hemolytic strep, vancomycin-resistant Enterococcus, Bacteroides, Parabacteroides, Clostridium perfringens and fungus. If any of these are isolated, the organism will be reported. Current interpretive data was last revised on 2019. Nevaeh Israel [facility] LAB MICROBIOLOGY - GENE RAL ORDERABLES Final Result Performing Organization Address [facility] Co de Phone Number [facility] [place] [place] [address] * Protein, body fluid (12/21/2024 11:14 AM CDT) Specimen type, fld Pleural Body site, fld Pleural fluid, right [facility] Protein, fld <2.0 g/dL [facility] Comment: Repeated and Verified The above specimen type is not cleared for use in this method by the FDA. Analytical characteristics have been validated by the performing laboratory. No reference range established - see interpretive comments. Interpretive Data Pleural and Pericardial Fluids - Ratio of fluid to serum protein > or = 0.5 is indicative of exudate and < 0.5 of transudate. Peritoneal - Protein > or = 3.0 g/dL is indicative of exudates and < 3.0 g/dL of transudates. Reference: Myla Textbook of Clinical Chemistry and Molecular Diagnostics, Sixth Edition. Elsevier Press. 2018. Chapter 43, Body Fluids, p. 925 Current Interpretive Data was last revised 2019. Fluid 12/21/2024 11:1 4 AM CDT 12/21/2024 1:24 PM CDT Nevaeh Israel [facility] LAB BODY FLUIDS AND STO OLS ORDERABLES Final Result Performing Organization Address [facility] Co de Phone Number [facility] Department [place] [place] [address] * Lactate dehydrogenase, body fluid (12/21/2024 11:14 AM CDT) Specimen type, fld Pleural Body site, fld Pleural fluid, right [facility] LD, fld 131 Units/L [facility] Comment: The above specimen type is not cleared for use in this method by the FDA. Analytical characteristics have been validated by the performing laboratory. No reference range established - see interpretive comments. Interpretive Data Ratio of fluid to serum LD > or = 0.6 is indicative of exudate and < 0.6 of transudate. References: The Biochemistry of Body Fluids. Association of Clinical Biochemists in [place]. February 2009; pp 1-36. Myla Textbook of Clinical Chemistry and Molecular Diagnostics, Sixth Edition. Elsevier Press. 2018. Chapter 43, Body Fluids, p. 925 Current Interpretive Data was last revised 2019. Fluid 12/21/2024 11:1 4 AM CDT 12/21/2024 1:24 PM CDT Nevaeh Israel [facility] LAB BODY FLUIDS AND [facility] ORDERABLES Final Result [facility] [place] [address] * Glucose, body fluid (12/21/2024 11:14 AM CDT) Specimen type, fld Pleural Body site, fld Pleural fluid, right [facility] Glucose, fld 152 mg/dL [facility] Comment: The above specimen type is not cleared for use in this method by the FDA. Analytical characteristics have been validated by the performing laboratory. No reference range established - see interpretive comments. Interpretive Data Pleural - Glucose < 60 mg/dL is indicative of complicated parapneumonic effusions. Peritoneal - normally equivalent to plasma glucose. Will be less than concurrent plasma value in peritoneal bacterial infections. Pericardial - Fluid to serum glucose ratio < 0.3 is indicative of bacterial infection. Pancreatic cyst fluid - glucose concentrations have been shown to be a useful aid for distinguishing mucinous from non-mucinous cysts. Low glucose concentrations in a pancreatic cyst fluid (< 40-50 mg/dL) is suggestive of a mucinous cyst. However, body fluid glucose concentrations may be decreased due to increased cellular metabolism and should be interpreted in the context of blood glucose concentrations and in conjunction with other laboratory and clinical findings. References: Myla Textbook of Clinical Chemistry and Molecular Diagnostics, Sixth Edition. Elsevier Press. 2018. Chapter 43, Body Fluids, p. 925 Pleural effusions: Evaluation and Management. [place] Clin J Med 2005;72:854-72. [employer] Test directory, Body Fluid Reference Intervals and/or Interpretative Information. https://[employer] ([employer])/bodyfluids Gibson EDAN et al. Pancreatic cyst fluid glucose: rapid, inexpensive, and accurate diagnosis of mucinous pancreatic cysts. Surgery 2018;163:600-5. Carlos DG et al. Differential diagnosis of pancreatic cysts: A prospective study on the role of intra-cystic glucose concentration. Digestive Liver Dis 2020;52:1026-32. Current Interpretive Data was last revised 2021. Fluid 12/21/2024 11:1 4 AM CDT 12/21/2024 1:24 PM CDT Narrative [facility] - 12/21/2024 2:19 PM CDT Body Fluid Type->Pleural Nevaeh Israel DNP LAB BODY FLUIDS AND STO OLS ORDERABLES Final Result [facility] Department [place] [address] * Thoracentesis -Right side (12/21/2024 11:12 AM CDT) Anatomical Region Laterality Modality Other Narrative Procedure Note Nevaeh Israel DNP - 12/21/2024 11:12 AM CDT [facility] Interventional Pulmonary Patient Name: Jai Meier Procedure Date: 12/21/2024 11:12 AM Date of : 1945 Admit Type: Inpatient Age: 79 Room: ROOM 3 Gender: Male Note Status: Finalized Procedure: B ECHO Chest, R Thoracentesis with catheter Indications: Pleural effusion Providers: ALEJANDRA Canas Referring MD: Medicines: Lidocaine 1% instilled into chest wall 10 mLSub-Q Complications: No immediate complications Procedure: Pre-Anesthesia Assessment: - The History and Physical was reviewed prior tothe procedure. The patient's medications, allergies and sensitivities have also been reviewed. - The risks and benefits of the procedure and the sedation options and risks were discussed with the patient. All questions were answered and informed consent was obtained. - Only local anesthesia, not conscious sedation,was planned for the procedure. - The heart rate, respiratory rate, oxygen saturations, blood pressure, adequacy of pulmonary ventilation, and response to care were monitored throughout the procedure. After obtaining informed consent, the site wasprepped and thoracentesis was performed.The procedure was accomplished without difficulty. The patienttolerated the procedure well. Estimated Blood Loss: Estimated blood loss: none. Findings: > Ultrasound, chest, real time with imaging documentation: Patient was placed in an right side up position on the proceduretable. Ultrasound evaluation of the right and left hemithorax was performedand revealed a moderate anechoic effusion. > Thoracentesis with catheter insertion: Thoracentesis with tube insertion using an Arrow-Lackey Pleura-Seal Thoracentesis Kit (8Fr.) was then performed following ultrasound localization in the 6 th intercostal space at the midscapular line of the right hemithorax. A total of 760 ml of serosanginous fluid was recovered. The tube was then removed. Fluid was sent for culture, cell count, LDH, total protein,glucose. A post procedure chest x-ray was order. Impression: - Pleural effusion - Successful therapeutic thoracentesis on the right side. - Dr. Goodman collaborated on this case. Recommendation: - Chest X-ray post-procedure. - Await culture and lab results. Electronically signed by Nevaeh Israel NP-C ALEJANDRA Hackett 12/21/2024 11:34:41 AM Number of Addenda: 0 Note Initiated On: 12/21/2024 11:12 AM us Meño Chandra MD IN CLINIC/BEDSIDE OR DERABLES Final Result * XR Chest 1 View (12/21/2024 9:40 AM CDT) Anatomical Region Laterality Modality Body, Chest N/A Digital Radiogra phy 12/21/2024 10:1 6 AM CDT Impressions 12/21/2024 10:16 AM CDT A left subclavian pacemaker is present with leads overlying the right atrium and right ventricle. Sternal plates are aligned. The lung volumes are small with moderate bibasilar atelectasis. Small bilateral pleural effusions are increased. No pneumothorax is identified. The cardiomediastinal silhouette is unchanged. Electronically signed by: Earl Perez M.D. Narrative 12/21/2024 10:16 AM CDT EXAMINATION: XR CHEST 1 VIEW COMPARISON: 12/20/2024 10:08 AM Procedure Note Earl Perez MD PhD - 12/21/2024 EXAMINATION: XR CHEST 1 VIEW COMPARISON: 12/20/2024 10:08 AM IMPRESSION: A left subclavian pacemaker is present with leads overlying the right atrium and right ventricle. Sternal plates are aligned. The lung volumes are small with moderate bibasilar atelectasis. Small bilateral pleural effusions are increased. No pneumothorax is identified. The cardiomediastinal silhouette is unchanged. Electronically signed by: Earl Perez M.D. Meño Chandra MD IMG XR PROCEDURES Fi nal Result * POCT glucose (12/21/2024 8:24 AM CDT) Glucose, POC 145 70 - 199 mg/dL Blood 12/21/2024 8:24 AM CDT 12/21/2024 8:24 AM CDT Meño Chandra MD LAB POCT ORDERABLES - DEVICE Final Result Performing Organization Address City/[facility]/ZIP Co de Phone Number [facility] [place] [address] * POCT glucose (12/21/2024 1:51 AM CDT) Glucose, POC 131 70 - 199 mg/dL Blood 12/21/2024 1:51 AM CDT 12/21/2024 1:51 AM CDT Result [facility] Meño Chandra MD LAB POCT ORDERABLES - DEVICE Final Result Performing Organization Address City/[facility] Co de Phone Number [facility] Department [place] [address] * Infection Prevention Jeramie auris PCR, surveillance Axilla/Groin (12/20/2024 9:19 PM CDT) Jeramie auris DNA Not Detected Not Detected [facility] Comment: Interpretive Data Testing performed by [facility] using the Matt marie [id number] Jeramie auris assay. This assay detects DNA from Jeramie auris using Real-Time PCR. This assay is laboratory developed and is not cleared by the [place] Food and Drug Administration. The performance characteristics have been verified by the [facility]. Axilla/Groin 12/20/2024 9:19 PM CDT 12/20/2024 11:00 PM CDT Narrative [facility] - 12/21/2024 12:31 PM CDT Order placed by [facility] due to ring surveillance. Meño Chandra MD LAB MICROBIOLOGY - G ENERAL ORDERABLES Final Result [facility] Department [place] [address] [facility] * (ABNORMAL) eGFR (12/20/2024 9:19 PM CDT) Pathologist [facility] eGFR 35(L) >=60 mL/min/1. 73 m2 Comment: Interpretive Data Reference Interval Normal >/= 90 mL/min/1.73m2 Mildly decreased* 60 - 89 mL/min/1.73m2 Mildly to moderately decreased 45 - 59 mL/min/1.73m2 Moderately to severely decreased 30 - 44 mL/min/1.73m2 Severely decreased 15 - 29 mL/min/1.73m2 Kidney Failure < 15 mL/min/1.73m2 *Relative to young adult level Estimated glomerular filtration rate is determined by the 2020 CKD-EPI equation recommended by the National Kidney Foundation (A Unifying Approach to GFR Estimation: Recommendations of the NKF-ASK Task Force on Reassessing the Inclusion of Race in Diagnosing Kidney Disease, JASN 2020). The CKD-EPI equation should not be used for patients with unstable renal function and has not been validated in children and those over 70. Current interpretive data was last reviewed 2021. Blood 12/20/2024 9:19 PM CDT 12/20/2024 10:56 PM CDT Meño Chandra MD LAB BLOOD ORDERABLES Final Result [facility] [place] [address] * (ABNORMAL) Differential, auto (12/20/2024 9:19 PM CDT) Neutrophil abs 9.80(H) 1.50 - 6.50 K/cumm Imm gran abs 0.10 0.00 - 0.10 K/cumm [facility] Lymphocyte abs 2.17 0.80 - 3.30 K/cumm [facility] Monocyte abs 1.35(H) 0.20 - 0.80 K/cumm [facility] Eosinophil abs 0.08 0.00 - 0.50 K/cumm [facility] Basophil abs 0.04 0.00 - 0.10 K/cumm [facility] Neutrophil pct 72.4 % [facility] Comment: Interpretive Data Percent cell count reference ranges are not reported, since discordance with absolute values may lead to misinterpretation of CBC data. Current Interpretive Data was last revised on 2017. Imm gran pct 0.7 % [facility] Comment: Interpretive Data Percent cell count reference ranges are not reported, since discordance with absolute values may lead to misinterpretation of CBC data. Current Interpretive Data was last revised on 2017. Lymphocyte pct 16.0 % [facility] Comment: Interpretive Data Percent cell count reference ranges are not reported, since discordance with absolute values may lead to misinterpretation of CBC data. Current Interpretive Data was last revised on 2017. Monocyte pct 10.0 % [facility] Comment: Interpretive Data Percent cell count reference ranges are not reported, since discordance with absolute values may lead to misinterpretation of CBC data. Current Interpretive Data was last revised on 2017. Eosinophil pct 0.6 % [facility] Comment: Interpretive Data Percent cell count reference ranges are not reported, since discordance with absolute values may lead to misinterpretation of CBC data. Current Interpretive Data was last revised on 2017. Basophil pct 0.3 % [facility] Comment: Interpretive Data Percent cell count reference ranges are not reported, since discordance with absolute values may lead to misinterpretation of CBC data. Current Interpretive Data was last revised on 2017. Blood 12/20/2024 9:19 PM CDT 12/20/2024 10:56 PM CDT Meño Chandra MD LAB BLOOD ORDERABLES Final Result Performing Organization Address [facility] Co de Phone Number [facility] Department [place] [address] * (ABNORMAL) CBC with auto differential (12/20/2024 9:19 PM CDT) [facility] WBC 13.54(H) 3.80 - 9.90 K/cumm Hgb 9.0(L) 13.0 - 17.5 g/dL [facility] Hct 27.9(L) 38.9 - 50.3 % [facility] Plt 252 150 - 400 K/cumm [facility] MPV 10.1 9.1 - 12.3 fL [facility] RBC 2.86(L) 4.30 - 5.80 M/cumm [facility] MCV 97.6(H) 81.3 - 96.4 fL [facility] MCH 31.5 27.1 - 33.3 pg [facility] MCHC 32.3 32.3 - 35.7 g/dL [facility] RDW CV 16.3(H) 11.1 - 14.9 % [facility] RDW SD 53.9(H) 35.7 - 48.1 fL [facility] NRBC abs 0.00 0.00 - 0.01 K/cumm [facility] Blood 12/20/2024 9:19 PM CDT 12/20/2024 10:56 PM CDT Meño Chandra MD LAB BLOOD ORDERABLES Final Result Performing Organization Address [facility] Co de Phone Number [facility] [place] [address] * (ABNORMAL) aPTT (12/20/2024 9:19 PM CDT) Pathologist [facility] aPTT 27(L) 28 - 38 sec Comment: Interpretive Data Heparin therapeutic range: 66.0 - 100.0 seconds. Range based on correlation with therapeutic heparin activity range of 0.3 - 0.7 Units/mL. Current interpretive data was last revised on 2023. Blood 12/20/2024 9:19 PM CDT 12/20/2024 11:00 PM CDT Meño Chandra MD LAB BLOOD ORDERABLES Final Result Performing Organization Address City/[facility] Co de Phone Number [facility] [place] [address] * (ABNORMAL) Protime-INR (12/20/2024 9:19 PM CDT) PT 17.6(H) 9.7 - 13.0 sec INR 1.61(H) 0.90 - 1.20 [facility] Comment: Interpretive data Oral anticoagulant therapeutic ranges: Venous thromboembolism prophylaxis or treatment: 2.0-3.0 CARDIOLOGY Standard range: 2.0-3.0 High-intensity range: 2.5-3.5 Refer to indication-specific guidelines for appropriate target ranges for prosthetic heart valve replacement. Current interpretive data was last revised on 2019. Blood 12/20/2024 9:19 PM CDT 12/20/2024 11:00 PM CDT Meño Chandra MD LAB BLOOD ORDERABLES Final Result Performing Organization Address [facility] Co de Phone Number [facility] [place] [place] [address] * (ABNORMAL) Phosphorus (12/20/2024 9:19 PM CDT) Phosphorus, pl 2.2(L) 2.3 - 4.5 mg/dL Blood 12/20/2024 9:19 PM CDT 12/20/2024 10:56 PM CDT Meño Chandra MD LAB BLOOD ORDERABLES Final Result Performing Organization Address City/[facility] Co de Phone Number [facility] [place] [address] * Magnesium (12/20/2024 9:19 PM CDT) Pathologist [facility] Magnesium 2.5 1.4 - 2.5 mg/dL Blood 12/20/2024 9:19 PM CDT 12/20/2024 10:56 PM CDT Meño Chandra MD LAB BLOOD ORDERABLES Final Result [facility] Department [place] [address] * (ABNORMAL) Comprehensive metabolic panel (12/20/2024 9:19 PM CDT) Pathologist [facility] Sodium 135 135 - 145 mmol/L Potassium, pl 4.6 3.3 - 4.9 mmol/L [facility] Chloride 103 97 - 110 mmol/L [facility] CO2 22 22 - 32 mmol/L [facility] Anion gap 10 2 - 15 mmol/L [facility] BUN 35(H) 6 - 25 mg/dL [facility] Creatinine 1.95(H) 0.80 - 1.30 mg/dL [facility] Glucose 169 70 - 199 mg/dL [facility] Comment: Interpretive Data Fasting glucose >/= 126 mg/dl is diagnostic for diabetes. Fasting is defined as no caloric intake for at least 8 hours. Fasting glucose between 100 mg/dl to 125 mg/dl is diagnostic of prediabetes. In a patient with classic symptoms of hyperglycemia or hyperglycemic crisis, a random glucose >/= 200 mg/dl is diagnostic for diabetes. In the absence of unequivocal hyperglycemia, results should be confirmed by repeat testing. The classification and Diagnosis of Diabetes Diabetes Care 202; 46: S19-S40. Current interpretive data was last revised 2022. Calcium 8.4(L) 8.5 - 10.3 mg/dL [facility] Bilirubin, total 0.3 0.1 - 1.2 mg/dL [facility] Protein, pl 6.3(L) 6.5 - 8.5 g/dL [facility] Albumin 3.2(L) 3.5 - 5.0 g/dL [facility] Alk phos 113 40 - 130 Units/L [facility] ALT 78(H) 7 - 55 Units/L [facility] AST 27 10 - 50 Units/L [facility] Blood 12/20/2024 9:19 PM CDT 12/20/2024 10:56 PM CDT us Meño Chandra MD LAB BLOOD ORDERABLES Final Result [facility] [place] [place] [address] * (ABNORMAL) POCT glucose (12/20/2024 7:46 PM CDT) Glucose, POC 210(H) 70 - 199 mg/dL Blood 12/20/2024 7:46 PM CDT 12/20/2024 7:46 PM CDT us Meño Chandra MD LAB POCT ORDERABLES - DEVICE Final Result Performing Organization Address City/[facility] Co de Phone Number [facility] [place] [place] [address] * (ABNORMAL) POCT glucose (12/20/2024 5:40 PM CDT) Glucose, POC 218(H) 70 - 199 mg/dL Blood 12/20/2024 5:40 PM CDT 12/20/2024 5:40 PM CDT Meño Chandra MD LAB POCT ORDERABLES - DEVICE Final Result Performing Organization Address City/[facility] Co de Phone Number [facility] [place] [place] [address] * (ABNORMAL) POCT glucose (12/20/2024 11:37 AM CDT) Glucose, POC 307(H) 70 - 199 mg/dL Blood 12/20/2024 11:3 7 AM CDT 12/20/2024 11:37 AM CDT Meño Chandra MD LAB POCT ORDERABLES - DEVICE Final Result [facility] Department [place] [address] * XR Chest PA Lateral 2 Views (12/20/2024 10:02 AM CDT) Anatomical Region Laterality Modality Body, Chest N/A Computed Radiogr aphy 12/20/2024 11:4 0 AM CDT Impressions 12/20/2024 11:53 AM CDT The current study is compared with the prior radiograph dated 12/20/2024, 8:12 AM. Two-lead pacemaker projects over left hemithorax. Median sternotomy plate and screw constructs project over thoracic midline. Prosthetic aortic valve. Small lung volumes. Redistributed right pleural effusion with posteriorly-layering component, which appears on lateral radiograph to be moderate to large in volume. There is a small left pleural effusion. There is no pneumothorax. Cardiomediastinal silhouette is unchanged from previous examination. Dictated by: Merary Dillard M.D. The radiology attending physician has personally reviewed this study, and had reviewed and/or edited this written report and agrees with it. Electronically signed by: Grace De Jesus M.D. Narrative 12/20/2024 11:53 AM CDT EXAMINATION: 2 view chest radiograph Procedure Note Grace De Jesus MD - 12/20/2024 EXAMINATION: 2 view chest radiograph IMPRESSION: The current study is compared with the prior radiograph dated 12/20/2024, 8:12 AM. Two-lead pacemaker projects over left hemithorax. Median sternotomy plate and screw constructs project over thoracic midline. Prosthetic aortic valve. Small lung volumes. Redistributed right pleural effusion with posteriorly-layering component, which appears on lateral radiograph to be moderate to large in volume. There is a small left pleural effusion. There is no pneumothorax. Cardiomediastinal silhouette is unchanged from previous examination. Dictated by: Merary Dillard M.D. The radiology attending physician has personally reviewed this study, and had reviewed and/or edited this written report and agrees with it. Electronically signed by: Grace De Jesus M.D. Meño Chandra MD IMG XR PROCEDURES Fi nal Result * XR Chest 1 View (12/20/2024 8:20 AM CDT) Anatomical Region Laterality Modality Body, Chest N/A Computed Radiogr aphy 12/20/2024 12:0 6 PM CDT Impressions 12/20/2024 12:13 PM CDT The current study is compared with the prior radiograph dated 12/19/2024. Sternal plates and screws. Status post aortic valve replacement. A left subclavian approach 2-lead pacer device is in place with leads overlying right atrium and right ventricle. Stable small pleural effusions and mild bibasilar atelectasis. No pneumothorax. Enlarged cardiomediastinal silhouette is unchanged. Dictated by: Taniya Maloney M.D. The radiology attending physician has personally reviewed this study, and had reviewed and/or edited this written report and agrees with it. Electronically signed by: Grace De Jesus M.D. Narrative 12/20/2024 12:13 PM CDT EXAMINATION: 1 view chest radiograph Procedure Note Grace De Jesus MD - 12/20/2024 EXAMINATION: 1 view chest radiograph IMPRESSION: The current study is compared with the prior radiograph dated 12/19/2024. Sternal plates and screws. Status post aortic valve replacement. A left subclavian approach 2-lead pacer device is in place with leads overlying right atrium and right ventricle. Stable small pleural effusions and mild bibasilar atelectasis. No pneumothorax. Enlarged cardiomediastinal silhouette is unchanged. Dictated by: Taniya Maloney M.D. The radiology attending physician has personally reviewed this study, and had reviewed and/or edited this written report and agrees with it. Electronically signed by: Grace De Jesus M.D. Meño Chandra MD IMG XR PROCEDURES Fi nal Result * POCT glucose (12/20/2024 2:18 AM CDT) Glucose, POC 148 70 - 199 mg/dL Blood 12/20/2024 2:18 AM CDT 12/20/2024 2:18 AM CDT Meño Chandra MD LAB POCT ORDERABLES - DEVICE Final Result [facility] [place] [address] * (ABNORMAL) eGFR (12/19/2024 9:50 PM CDT) eGFR 39(L) >=60 mL/min/1. 73 m2 Comment: Interpretive Data Reference Interval Normal >/= 90 mL/min/1.73m2 Mildly decreased* 60 - 89 mL/min/1.73m2 Mildly to moderately decreased 45 - 59 mL/min/1.73m2 Moderately to severely decreased 30 - 44 mL/min/1.73m2 Severely decreased 15 - 29 mL/min/1.73m2 Kidney Failure < 15 mL/min/1.73m2 *Relative to young adult level Estimated glomerular filtration rate is determined by the 2020 CKD-EPI equation recommended by the National Kidney Foundation (A Unifying Approach to GFR Estimation: Recommendations of the NKF-ASK Task Force on Reassessing the Inclusion of Race in Diagnosing Kidney Disease, JASN 2020). The CKD-EPI equation should not be used for patients with unstable renal function and has not been validated in children and those over 70. Current interpretive data was last reviewed 2021. Blood 12/19/2024 9:50 PM CDT 12/19/2024 11:39 PM CDT Meño Chandra MD LAB BLOOD ORDERABLES Final Result [facility] [place] [address] * (ABNORMAL) Protime-INR (12/19/2024 9:50 PM CDT) Pathologist [facility] PT 16.7(H) 9.7 - 13.0 sec INR 1.53(H) 0.90 - 1.20 [facility] Comment: Interpretive data Oral anticoagulant therapeutic ranges: Venous thromboembolism prophylaxis or treatment: 2.0-3.0 CARDIOLOGY Standard range: 2.0-3.0 High-intensity range: 2.5-3.5 Refer to indication-specific guidelines for appropriate target ranges for prosthetic heart valve replacement. Current interpretive data was last revised on 2019. Blood 12/19/2024 9:50 PM CDT 12/19/2024 11:45 PM CDT us Meño Chandra MD LAB BLOOD ORDERABLES Final Result Performing Organization Address [facility] de Phone Number [facility] [place] [address] * (ABNORMAL) CBC without differential (12/19/2024 9:50 PM CDT) [facility] WBC 11.74(H) 3.80 - 9.90 K/cumm Hgb 9.3(L) 13.0 - 17.5 g/dL [facility] Hct 29.1(L) 38.9 - 50.3 % [facility] Plt 279 150 - 400 K/cumm [facility] MPV 9.9 9.1 - 12.3 fL [facility] RBC 3.05(L) 4.30 - 5.80 M/cumm [facility] MCV 95.4 81.3 - 96.4 fL [facility] MCH 30.5 27.1 - 33.3 pg [facility] MCHC 32.0(L) 32.3 - 35.7 g/dL [facility] RDW CV 16.2(H) 11.1 - 14.9 % [facility] RDW SD 54.0(H) 35.7 - 48.1 fL [facility] NRBC abs 0.00 0.00 - 0.01 K/cumm [facility] Blood 12/19/2024 9:50 PM CDT 12/19/2024 11:37 PM CDT Meño Chandra MD LAB BLOOD ORDERABLES Final Result [facility] [place] [place] [address] * Type and screen (12/19/2024 9:50 PM CDT) Pathologist [facility] Terry, indirect Negative ABO Rh A Positive [facility] Blood 12/19/2024 9:50 PM CDT 12/19/2024 11:35 PM CDT Narrative [facility] - 12/20/2024 12:32 AM CDT Has the patient had Daratumumab or Isatuximab in the past 6 months?->Unknown Meño Chandra MD LAB BLOOD BANK TEST ORDERABLES Final Result Performing Organization Address City/[facility] [place] [address] * Phosphorus (12/19/2024 9:50 PM CDT) Pathologist [facility] Phosphorus, pl 2.3 2.3 - 4.5 mg/dL Blood 12/19/2024 9:50 PM CDT 12/19/2024 11:39 PM CDT Meño Chandra MD LAB BLOOD ORDERABLES Final Result Performing Organization Address City/[facility]/ZIP Co de Phone Number [facility] [place] [address] * Magnesium (12/19/2024 9:50 PM CDT) Pathologist [facility] Magnesium 2.4 1.4 - 2.5 mg/dL Blood 12/19/2024 9:50 PM CDT 12/19/2024 11:39 PM CDT Meño Chandra MD LAB BLOOD ORDERABLES Final Result [facility] [place] [address] * (ABNORMAL) Basic metabolic panel (12/19/2024 9:50 PM CDT) Pathologist [facility] Sodium 136 135 - 145 mmol/L Potassium, pl 4.6 3.3 - 4.9 mmol/L [facility] Chloride 105 97 - 110 mmol/L [facility] CO2 22 22 - 32 mmol/L [facility] Anion gap 9 2 - 15 mmol/L [facility] BUN 30(H) 6 - 25 mg/dL [facility] Creatinine 1.77(H) 0.80 - 1.30 mg/dL [facility] Glucose 198 70 - 199 mg/dL [facility] Comment: Interpretive Data Fasting glucose >/= 126 mg/dl is diagnostic for diabetes. Fasting is defined as no caloric intake for at least 8 hours. Fasting glucose between 100 mg/dl to 125 mg/dl is diagnostic of prediabetes. In a patient with classic symptoms of hyperglycemia or hyperglycemic crisis, a random glucose >/= 200 mg/dl is diagnostic for diabetes. In the absence of unequivocal hyperglycemia, results should be confirmed by repeat testing. The classification and Diagnosis of Diabetes Diabetes Care 2021; 46: S19-S40. Current interpretive data was last revised 2022. Calcium 7.9(L) 8.5 - 10.3 mg/dL [facility] Blood 12/19/2024 9:5 0 PM CDT 12/19/2024 11:39 PM CDT Meño Chandra MD LAB BLOOD ORDERABLES Final Result [facility] [place] [address] * (ABNORMAL) POCT glucose (12/19/2024 8:32 PM CDT) Glucose, POC 303(H) 70 - 199 mg/dL Blood 12/19/2024 8:32 PM CDT 12/19/2024 8:32 PM CDT Meño Chandra MD LAB POCT ORDERABLES - DEVICE Final Result [facility] [place] [address] * POCT glucose (12/19/2024 6:05 PM CDT) Glucose, POC 181 70 - 199 mg/dL Blood 12/19/2024 6:05 PM CDT 12/19/2024 6:05 PM CDT Meño Chandra MD LAB POCT ORDERABLES - DEVICE Final Result Performing Organization Address City/[facility] [place] [address] * XR Chest 1 View (12/19/2024 2:13 PM CDT) Anatomical Region Laterality Modality Body, Chest N/A Digital Radiogra phy 12/19/2024 2:53 PM CDT Impressions 12/19/2024 3:01 PM CDT The current study is compared with the prior radiograph dated 12/11/2024 at 12 5:00 PM An atrio-ventricular pacer device is in place with leads overlying expected position. Median sternotomy plates and screws appear intact. Small right pleural effusion with associated atelectasis. Stable moderate enlargement of the heart. No pneumothorax. Dictated by: Prosper Salazar M.D. The radiology attending physician has personally reviewed this study, and had reviewed and/or edited this written report and agrees with it. Electronically signed by: Igor Giraldo M.D. Narrative 12/19/2024 3:01 PM CDT EXAMINATION: 1 view chest radiograph Procedure Note Igor Giraldo MD - 12/19/2024 EXAMINATION: 1 view chest radiograph IMPRESSION: The current study is compared with the prior radiograph dated 12/11/2024 at 12 5:00 PM An atrio-ventricular pacer device is in place with leads overlying expected position. Median sternotomy plates and screws appear intact. Small right pleural effusion with associated atelectasis. Stable moderate enlargement of the heart. No pneumothorax. Dictated by: Prosper Salazar M.D. The radiology attending physician has personally reviewed this study, and had reviewed and/or edited this written report and agrees with it. Electronically signed by: Igor Giraldo M.D. us Meño Chandra MD IMG XR PROCEDURES Fi nal Result * (ABNORMAL) POCT glucose (12/19/2024 1:50 PM CDT) Glucose, POC 202(H) 70 - 199 mg/dL Blood 12/19/2024 1:50 PM CDT 12/19/2024 1:50 PM CDT us Meño Chandra MD LAB POCT ORDERABLES - DEVICE Final Result [facility] Department [place] [address] * Critical Care (12/19/2024 1:38 PM CDT) Narrative Ronnie Roajs MD - 12/19/2024 1:38 PM CDT Ronnie Rojas MD 12/19/2024 1:39 PM Critical Care Performed by: Ronnie Rojas MD Authorized by: Ronnie Rojas MD CRITICAL CARE: Team: [id number] CTICU Shift: AM Level of Billing: Critical Care My time spent with this patient was 35 minutes: Critical Provider Statement: I have seen and examined the patient on this day of service. I have reviewed and confirmed the history, physical exam, laboratory and radiologic data as documented in the signed ICU note. I have reviewed and discussed my treatment plan with the ICU team and other medical/home service consultant staff, making frequent assessments and decisions regarding this patient's complex medical care. Critical Care time was exclusive of time spent performing separately billed procedures, treating other patients, and teaching. This time was in addition to and separate from critical care provided by other practitioners in my group on this day of service. Critical Care was necessary to treat or prevent imminent or life-threatening deterioration of the following conditions: Atrial fibrillation with rapid ventricular rate and Tachy/anat arrhythmic event This time was spent by me doing the following: Cardiac pacing and Initiation/active titration of anti-arrhythmic or rate controlling agent Empiric broad coverage antibiotics I spent time discussing the management of this critically ill patient with consultants and the medical staff, I spent time documenting in the medical record and I spent time reviewing and interpreting data from bedside monitors, laboratory results, and imaging Ronnie Rojas MD IN CLINIC/BEDSIDE ORDERABL ES Final Result * X-ray chest 1 view (12/19/2024 12:11 PM CDT) Anatomical Region Laterality Modality Body, Chest N/A Digital Radiogra phy 12/19/2024 1:54 PM CDT Impressions 12/19/2024 1:55 PM CDT The current study is compared with the prior radiograph dated 12/18/2024 Median sternotomy plates and screws appear intact and unchanged. An atrio-ventricular pacer device is in place with leads overlying expected position. Small lung volumes. Small bilateral pleural effusions with associated atelectasis. No pneumothorax. Heart and mediastinum unchanged. Tracheal narrowing at the thoracic inlet corresponds with thyroid goiter noted on CT 11/08/2024. Dictated by: Prosper Salazar M.D. The radiology attending physician has personally reviewed this study, and had reviewed and/or edited this written report and agrees with it. Electronically signed by: Yuriy Page M.D. Narrative 12/19/2024 1:55 PM CDT EXAMINATION: 1 view chest radiograph Procedure Note Yuriy Page MD - 12/19/2024 EXAMINATION: 1 view chest radiograph IMPRESSION: The current study is compared with the prior radiograph dated 12/18/2024 Median sternotomy plates and screws appear intact and unchanged. An atrio-ventricular pacer device is in place with leads overlying expected position. Small lung volumes. Small bilateral pleural effusions with associated atelectasis. No pneumothorax. Heart and mediastinum unchanged. Tracheal narrowing at the thoracic inlet corresponds with thyroid goiter noted on CT 11/08/2024. Dictated by: Prosper Salazar M.D. The radiology attending physician has personally reviewed this study, and had reviewed and/or edited this written report and agrees with it. Electronically signed by: Yuriy Page M.D. Meño Chandra MD IMG XR PROCEDURES Fi nal Result * (ABNORMAL) POCT glucose (12/19/2024 12:00 PM CDT) Glucose, POC 204(H) 70 - 199 mg/dL Blood 12/19/2024 12:0 0 PM CDT 12/19/2024 12:00 PM CDT us Meño Chandra MD LAB POCT ORDERABLES - DEVICE Final Result [facility] [place] [address] * IMPLANT DUAL CHAMBER PPM SYSTEM W/ DUAL ELECTRODES (GEN AND LEADS, NEW OR REPLACE) (12/19/2024 11:34 AM CDT) Anatomical Region Laterality Modality X-Ray Angiograph y Narrative 12/21/2024 3:27 AM CDT Patient Name: Jai Meier Date of : 1945 Primary Physician: @PCP@ Procedure Date: @ADMITDT@ Name of procedure: 1. Placement of a dual-chamber pacemaker 2. 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 Was found to be in atrial tachycardia rate 125BPM on day of PPM. Methods: After informed consent was obtained, the patient was brought to the EP laboratory in a postabsorptive, nonsedated state. Peripheral IV access was established. Prophylactic antibiotics were administered prior to incision. Continuous ECG, blood pressure, and pulse oximetry were initiated. Cardioversion patch electrodes were placed on the patient's chest and back. A grounding patch was applied to the skin. Sedation was administered by anesthesia. In order to define the extrathoracic portion of the subclavian vein and exclude significant venous obstruction or anomalous anatomy, subclavian venography was performed prior to the procedure. Using the patient's left upper ext peripheral IV, contrast was injected and images were recorded. The left subclavian vein and SVC were found to be widely patent. The left chest was prepared and draped in a sterile fashion. Local anesthesia was injected in the subcutaneous tissue in the infraclavicular area. An incision was made medial to the deltopectoral groove. The subcutaneous tissue was dissected the level of the prepectoral fascia. A subcutaneous pocket was created. Under fluoroscopic guidance and with the assistance of the images from the venogram, 2 separate venipunctures were made using micropuncture and modified Seldinger technique. These were performed in the extrathoracic portion of the subclavian vein. Guidewires were passed and two peel-away sheaths were placed, and used to advance leads into the circulation. Using fluoroscopic guidance, the leads were positioned. The RV lead was advanced to the RV/outflow tract. Ventricular ectopy was recorded. Images were taken in ANGULO and MAORI views to ensure appropriate lead placement. The lead tip was subsequently positioned on the apical septum. Adequate sensing and pacing parameters were found, and no diaphragmatic stimulation was seen with high-output pacing. Next, the right atrial lead was positioned in the right atrial appendage. There was poor sensing and no capture in several locations, finally secured the lead to the lateral RA with Adequate sensing and pacing parameters were found, and no diaphragmatic stimulation was seen with high-output pacing. Both sheaths were split, and the leads were secured to the fascia with Ethibond ties. The pocket was flushed with antibiotic solution and hemostasis was assured. The generator was connected to the leads and placed inside the pocket. Antibiotic envelope was used. The wound was closed with 3 running layers of absorbable suture, and steripstrips were applied Following the procedure, the patient was taken to the recovery area in stable condition. A chest x-ray was obtained in the holding area. Lead parameters and device programming: - RA Lead (#[id number] S/N [id number]): Sensing 0.6 mV, Pacing threshold 2.5 V at 0.4 ms, Imp 551 Ohm - RV Lead (#[id number] S/N [id number]): Sensing 11.5 mV, Pacing threshold 1.25 V at 0.4 ms, Imp 1121 Ohm - Device: pacemaker (#[id number] S/N [id number]), programmed AAI-DDD 60-130BPM Conclusions: 1. Successful placement of a dual-chamber pacemaker 2. Subclavian venography Recommendations: 1. Admit to same hospital bed. 2. Portable chest x-ray in recovery area. PA/lateral chest x-ray in the morning. 3. IV antibiotics while the patient is admitted. 4. Device interrogation in the morning. 5. Follow-up will be arranged in the [facility] 7-10 days post-discharge Arthur Mcleod MD Clinical Cardiac [employer]acker Meño Chandra MD CV ELECTROPHYSIOLOGY PROCS Final Result * POCT glucose (12/19/2024 9:02 AM CDT) Glucose, POC 163 70 - 199 mg/dL Blood 12/19/2024 9:02 AM CDT 12/19/2024 9:02 AM CDT Meño Chandra MD LAB POCT ORDERABLES - DEVICE Final Result Performing Organization Address City/[facility]/ZIP Co de Phone Number [facility] [place] [address] * POCT glucose (12/19/2024 6:28 AM CDT) Glucose, POC 152 70 - 199 mg/dL Blood 12/19/2024 6:28 AM CDT 12/19/2024 6:28 AM CDT Meño Chandra MD LAB POCT ORDERABLES - DEVICE Final Result Performing Organization Address [facility] [place] [address] * POCT glucose (12/19/2024 12:50 AM CDT) Glucose, POC 139 70 - 199 mg/dL Blood 12/19/2024 12:5 0 AM CDT 12/19/2024 12:50 AM CDT Meño Chandra MD LAB POCT ORDERABLES - DEVICE Final Result Performing Organization Address [facility]/ZIP Co de Phone Number [facility] [place] [address] * POCT glucose (12/18/2024 9:13 PM CDT) Glucose, POC 139 70 - 199 mg/dL Blood 12/18/2024 9:13 PM CDT 12/18/2024 9:13 PM CDT Meño Chandra MD LAB POCT ORDERABLES - DEVICE Final Result Performing Organization Address City/[facility]/ZIP Co de Phone Number [facility] [place] [address] * Potassium, whole blood (12/18/2024 8:59 PM CDT) Potassium, bld 4.3 3.3 - 4.9 mmol/L Blood 12/18/2024 8:59 PM CDT 12/18/2024 9:21 PM CDT Meño Chandra MD LAB BLOOD ORDERABLES Final Result Performing Organization Address City/[facility]/ZIP Co de Phone Number [facility] Department [place] [place] [address] * (ABNORMAL) eGFR (12/18/2024 8:59 PM CDT) Pathologist [facility] eGFR 36(L) >=60 mL/min/1. 73 m2 Comment: Interpretive Data Reference Interval Normal >/= 90 mL/min/1.73m2 Mildly decreased* 60 - 89 mL/min/1.73m2 Mildly to moderately decreased 45 - 59 mL/min/1.73m2 Moderately to severely decreased 30 - 44 mL/min/1.73m2 Severely decreased 15 - 29 mL/min/1.73m2 Kidney Failure < 15 mL/min/1.73m2 *Relative to young adult level Estimated glomerular filtration rate is determined by the 2020 CKD-EPI equation recommended by the National Kidney Foundation (A Unifying Approach to GFR Estimation: Recommendations of the NKF-ASK Task Force on Reassessing the Inclusion of Race in Diagnosing Kidney Disease, JASN 2020). The CKD-EPI equation should not be used for patients with unstable renal function and has not been validated in children and those over 70. Current interpretive data was last reviewed 2021. Blood 12/18/2024 8:59 PM CDT 12/18/2024 9:38 PM CDT Meño Chandra MD LAB BLOOD ORDERABLES Final Result [facility] [place] [place] [address] * (ABNORMAL) Protime-INR (12/18/2024 8:59 PM CDT) Pathologist [facility] PT 16.1(H) 9.7 - 13.0 sec INR 1.48(H) 0.90 - 1.20 [facility] Comment: Interpretive data Oral anticoagulant therapeutic ranges: Venous thromboembolism prophylaxis or treatment: 2.0-3.0 CARDIOLOGY Standard range: 2.0-3.0 High-intensity range: 2.5-3.5 Refer to indication-specific guidelines for appropriate target ranges for prosthetic heart valve replacement. Current interpretive data was last revised on 2019. Blood 12/18/2024 8:59 PM CDT 12/18/2024 9:49 PM CDT us Meño Chandra MD LAB BLOOD ORDERABLES Final Result [facility] Department [place] [address] * (ABNORMAL) CBC without differential (12/18/2024 8:59 PM CDT) Pathologist [facility] WBC 9.06 3.80 - 9.90 K/cumm Hgb 12.0(L) 13.0 - 17.5 g/dL [facility] Hct 36.5(L) 38.9 - 50.3 % [facility] Plt 285 150 - 400 K/cumm [facility] MPV 9.2 9.1 - 12.3 fL [facility] RBC 3.88(L) 4.30 - 5.80 M/cumm [facility] MCV 94.1 81.3 - 96.4 fL [facility] MCH 30.9 27.1 - 33.3 pg [facility] MCHC 32.9 32.3 - 35.7 g/dL [facility] RDW CV 15.9(H) 11.1 - 14.9 % [facility] RDW SD 52.3(H) 35.7 - 48.1 fL [facility] NRBC abs 0.00 0.00 - 0.01 K/cumm [facility] Blood 12/18/2024 8:59 PM CDT 12/18/2024 9:28 PM CDT Meño Chandra MD LAB BLOOD ORDERABLES Final Result Performing Organization Address [facility] Co de Phone Number [facility] [place] [address] * Phosphorus (12/18/2024 8:59 PM CDT) [facility] Phosphorus, pl 2.6 2.3 - 4.5 mg/dL Blood 12/18/2024 8:59 PM CDT 12/18/2024 9:31 PM CDT Meño Chandra MD LAB BLOOD ORDERABLES Final Result Performing Organization Address [facility] de Phone Number [facility] [place] [address] * (ABNORMAL) Magnesium (12/18/2024 8:59 PM CDT) [facility] Magnesium 2.7(H) 1.4 - 2.5 mg/dL Blood 12/18/2024 8:59 PM CDT 12/18/2024 9:31 PM CDT Meño Chandra MD LAB BLOOD ORDERABLES Final Result Performing Organization Address [facility] [place] [address] * (ABNORMAL) Basic metabolic panel (12/18/2024 8:59 PM CDT) [facility] Sodium 137 135 - 145 mmol/L Potassium, pl 4.6 3.3 - 4.9 mmol/L [facility] Chloride 103 97 - 110 mmol/L [facility] CO2 26 22 - 32 mmol/L [facility] Anion gap 8 2 - 15 mmol/L [facility] BUN 33(H) 6 - 25 mg/dL [facility] Creatinine 1.89(H) 0.80 - 1.30 mg/dL [facility] Glucose 138 70 - 199 mg/dL [facility] Comment: Interpretive Data Fasting glucose >/= 126 mg/dl is diagnostic for diabetes. Fasting is defined as no caloric intake for at least 8 hours. Fasting glucose between 100 mg/dl to 125 mg/dl is diagnostic of prediabetes. In a patient with classic symptoms of hyperglycemia or hyperglycemic crisis, a random glucose >/= 200 mg/dl is diagnostic for diabetes. In the absence of unequivocal hyperglycemia, results should be confirmed by repeat testing. The classification and Diagnosis of Diabetes Diabetes Care 2021; 46: S19-S40. Current interpretive data was last revised 2022. Calcium 8.4(L) 8.5 - 10.3 mg/dL [facility] Blood 12/18/2024 8:59 PM CDT 12/18/2024 9:31 PM CDT Meño Chandra MD LAB BLOOD ORDERABLES Final Result [facility] Department [place] [place] [address] * POCT glucose (12/18/2024 5:50 PM CDT) [facility] Glucose, POC 160 70 - 199 mg/dL Blood 12/18/2024 5:50 PM CDT 12/18/2024 5:50 PM CDT Meño Chandra MD LAB POCT ORDERABLES - DEVICE Final Result [facility] Department [place] [place] [address] * Critical Care (12/18/2024 1:34 PM CDT) Narrative Ronnie Rojas MD - 12/18/2024 1:34 PM CDT Ronnie Rojas MD 12/18/2024 1:37 PM Critical Care Performed by: Ronnie Rojas MD Authorized by: Ronnie Rojas MD CRITICAL CARE: Team: 83 CTICU Shift: AM Level of Billing: Critical Care My time spent with this patient was 35 minutes: Critical Provider Statement: I have seen and examined the patient on this day of service. I have reviewed and confirmed the history, physical exam, laboratory and radiologic data as documented in the signed ICU note. I have reviewed and discussed my treatment plan with the ICU team and other medical/home service consultant staff, making frequent assessments and decisions regarding this patient's complex medical care. Critical Care time was exclusive of time spent performing separately billed procedures, treating other patients, and teaching. This time was in addition to and separate from critical care provided by other practitioners in my group on this day of service. Critical Care was necessary to treat or prevent imminent or life-threatening deterioration of the following conditions: Atrial fibrillation with rapid ventricular rate and Tachy/anat arrhythmic event This time was spent by me doing the following: Cardiac pacing and Initiation/active titration of anti-arrhythmic or rate controlling agent Active and frequent reassessment of respiratory status and oxygen requirements Empiric broad coverage antibiotics I spent time reviewing and interpreting data from bedside monitors, laboratory results, and imaging, I spent time documenting in the medical record and I spent time discussing the management of this critically ill patient with consultants and the medical staff us Ronnie Rojas MD IN CLINIC/BEDSIDE ORDERABL ES Final Result * (ABNORMAL) POCT glucose (12/18/2024 11:15 AM CDT) Glucose, POC 304(H) 70 - 199 mg/dL Blood 12/18/2024 11:1 5 AM CDT 12/18/2024 11:15 AM CDT us Meño Chandra MD LAB POCT ORDERABLES - DEVICE Final Result [facility] Department [place] [address] * XR Chest 1 View (12/18/2024 8:30 AM CDT) Anatomical Region Laterality Modality Body, Chest N/A Digital Radiogra phy 12/18/2024 1:27 PM CDT Impressions 12/18/2024 1:27 PM CDT Comparison 12/17/2024 11:12 AM. Sternal plates again seen. Cardiomediastinal silhouette stable. Moderate left retrocardiac atelectasis and small left pleural effusion seen, increased. Small right basilar pleural effusion and mild right base atelectasis also increased. No definite pulmonary edema seen. No pneumothorax seen. Electronically signed by: Yuriy Page M.D. Narrative 12/18/2024 1:27 PM CDT EXAMINATION: 1 view chest radiograph Procedure Note Yuriy Page MD - 12/18/2024 EXAMINATION: 1 view chest radiograph IMPRESSION: Comparison 12/17/2024 11:12 AM. Sternal plates again seen. Cardiomediastinal silhouette stable. Moderate left retrocardiac atelectasis and small left pleural effusion seen, increased. Small right basilar pleural effusion and mild right base atelectasis also increased. No definite pulmonary edema seen. No pneumothorax seen. Electronically signed by: Yuriy Page M.D. Meño Chandra MD IMG XR PROCEDURES Fi nal Result * POCT glucose (12/18/2024 8:19 AM CDT) Glucose, POC 196 70 - 199 mg/dL Blood 12/18/2024 8:19 AM CDT 12/18/2024 8:19 AM CDT Meño Chandra MD LAB POCT ORDERABLES - DEVICE Final Result [facility] Department [place] [address] * (ABNORMAL) POCT glucose (12/18/2024 1:18 AM CDT) Glucose, POC 214(H) 70 - 199 mg/dL Blood 12/18/2024 1:18 AM CDT 12/18/2024 1:18 AM CDT Meño Chandra MD LAB POCT ORDERABLES - DEVICE Final Result Performing Organization Address City/[facility] Co de Phone Number [facility] [place] [address] * Potassium, whole blood (12/17/2024 8:43 PM CDT) Potassium, bld 4.7 3.3 - 4.9 mmol/L Blood 12/17/2024 8:43 PM CDT 12/17/2024 8:46 PM CDT Meño Chandra MD LAB BLOOD ORDERABLES Final Result Performing Organization Address [facility] de Phone Number [facility] Department [place] [address] * (ABNORMAL) eGFR (12/17/2024 8:43 PM CDT) eGFR 33(L) >=60 mL/min/1. 73 m2 Comment: Interpretive Data Reference Interval Normal >/= 90 mL/min/1.73m2 Mildly decreased* 60 - 89 mL/min/1.73m2 Mildly to moderately decreased 45 - 59 mL/min/1.73m2 Moderately to severely decreased 30 - 44 mL/min/1.73m2 Severely decreased 15 - 29 mL/min/1.73m2 Kidney Failure < 15 mL/min/1.73m2 *Relative to young adult level Estimated glomerular filtration rate is determined by the 2020 CKD-EPI equation recommended by the National Kidney Foundation (A Unifying Approach to GFR Estimation: Recommendations of the NKF-ASK Task Force on Reassessing the Inclusion of Race in Diagnosing Kidney Disease, JASN 202). The CKD-EPI equation should not be used for patients with unstable renal function and has not been validated in children and those over 70. Current interpretive data was last reviewed 2021. Blood 12/17/2024 8:43 PM CDT 12/17/2024 9:03 PM CDT Meño Chandra MD LAB BLOOD ORDERABLES Final Result Performing Organization Address [facility] de Phone Number [facility] [place] [address] * (ABNORMAL) Protime-INR (12/17/2024 8:43 PM CDT) PT 15.6(H) 9.7 - 13.0 sec INR 1.43(H) 0.90 - 1.20 [facility] Comment: Interpretive data Oral anticoagulant therapeutic ranges: Venous thromboembolism prophylaxis or treatment: 2.0-3.0 CARDIOLOGY Standard range: 2.0-3.0 High-intensity range: 2.5-3.5 Refer to indication-specific guidelines for appropriate target ranges for prosthetic heart valve replacement. Current interpretive data was last revised on 2019. Blood 12/17/2024 8:43 PM CDT 12/17/2024 8:55 PM CDT Meño Chandra MD LAB BLOOD ORDERABLES Final Result Performing Organization Address [facility] de Phone Number [facility] [place] [address] * (ABNORMAL) CBC without differential (12/17/2024 8:43 PM CDT) WBC 11.34(H) 3.80 - 9.90 K/cumm Hgb 9.1(L) 13.0 - 17.5 g/dL [facility] Hct 28.3(L) 38.9 - 50.3 % [facility] Plt 371 150 - 400 K/cumm [facility] MPV 9.0(L) 9.1 - 12.3 fL [facility] RBC 3.02(L) 4.30 - 5.80 M/cumm [facility] MCV 93.7 81.3 - 96.4 fL [facility] MCH 30.1 27.1 - 33.3 pg [facility] MCHC 32.2(L) 32.3 - 35.7 g/dL [facility] RDW CV 15.7(H) 11.1 - 14.9 % [facility] RDW SD 51.3(H) 35.7 - 48.1 fL [facility] NRBC abs 0.00 0.00 - 0.01 K/cumm [facility] Blood 12/17/2024 8:43 PM CDT 12/17/2024 8:54 PM CDT Meño Chandra MD LAB BLOOD ORDERABLES Final Result Performing Organization Address [facility] Co de Phone Number [facility] Department [place] [address] * Phosphorus (12/17/2024 8:43 PM CDT) Phosphorus, pl 2.8 2.3 - 4.5 mg/dL Blood 12/17/2024 8:43 PM CDT 12/17/2024 8:52 PM CDT us Meño Chandra MD LAB BLOOD ORDERABLES Final Result Performing Organization Address City/[facility] Co de Phone Number [facility] Department [place] [address] * (ABNORMAL) Magnesium (12/17/2024 8:43 PM CDT) Magnesium 2.9(H) 1.4 - 2.5 mg/dL Blood 12/17/2024 8:43 PM CDT 12/17/2024 8:52 PM CDT Meño Chandra MD LAB BLOOD ORDERABLES Final Result Performing Organization Address [facility] Co de Phone Number [facility] Department [place] [address] * (ABNORMAL) Basic metabolic panel (12/17/2024 8:43 PM CDT) Pathologist [facility] Sodium 138 135 - 145 mmol/L Potassium, pl 4.8 3.3 - 4.9 mmol/L [facility] Chloride 104 97 - 110 mmol/L [facility] CO2 27 22 - 32 mmol/L [facility] Anion gap 7 2 - 15 mmol/L [facility] BUN 40(H) 6 - 25 mg/dL [facility] Creatinine 2.04(H) 0.80 - 1.30 mg/dL [facility] Glucose 124 70 - 199 mg/dL [facility] Comment: Interpretive Data Fasting glucose >/= 126 mg/dl is diagnostic for diabetes. Fasting is defined as no caloric intake for at least 8 hours. Fasting glucose between 100 mg/dl to 125 mg/dl is diagnostic of prediabetes. In a patient with classic symptoms of hyperglycemia or hyperglycemic crisis, a random glucose >/= 200 mg/dl is diagnostic for diabetes. In the absence of unequivocal hyperglycemia, results should be confirmed by repeat testing. The classification and Diagnosis of Diabetes Diabetes Care 202; 46: S19-S40. Current interpretive data was last revised 2022. Calcium 8.7 8.5 - 10.3 mg/dL [facility] Blood 12/17/2024 8:43 PM CDT 12/17/2024 8:52 PM CDT us Meño Chandra MD LAB BLOOD ORDERABLES Final Result [facility] Department [place] [address] * POCT glucose (12/17/2024 8:41 PM CDT) Glucose, POC 130 70 - 199 mg/dL Blood 12/17/2024 8:41 PM CDT 12/17/2024 8:41 PM CDT Meño Chandra MD LAB POCT ORDERABLES - DEVICE Final Result Performing Organization Address City/[facility] Co de Phone Number [facility] [place] [address] * POCT glucose (12/17/2024 5:41 PM CDT) Glucose, POC 175 70 - 199 mg/dL Blood 12/17/2024 5:41 PM CDT 12/17/2024 5:41 PM CDT Meño Chandra MD LAB POCT ORDERABLES - DEVICE Final Result Performing Organization Address [facility] Co de Phone Number [facility] Department [place] [address] * Critical Care (12/17/2024 1:17 PM CDT) Narrative Ronnie Rojas MD - 12/17/2024 1:17 PM CDT Ronnie Rojas MD 12/17/2024 1:18 PM Critical Care Performed by: Ronnie Rojas MD Authorized by: Ronnie Rojas MD CRITICAL CARE: Team: 83 CTICU Shift: AM Level of Billing: Critical Care My time spent with this patient was 35 minutes: Critical Provider Statement: I have seen and examined the patient on this day of service. I have reviewed and confirmed the history, physical exam, laboratory and radiologic data as documented in the signed ICU note. I have reviewed and discussed my treatment plan with the ICU team and other medical/home service consultant staff, making frequent assessments and decisions regarding this patient's complex medical care. Critical Care time was exclusive of time spent performing separately billed procedures, treating other patients, and teaching. This time was in addition to and separate from critical care provided by other practitioners in my group on this day of service. Critical Care was necessary to treat or prevent imminent or life-threatening deterioration of the following conditions: Tachy/anat arrhythmic event This time was spent by me doing the following: Cardiac pacing I spent time reviewing and interpreting data from bedside monitors, laboratory results, and imaging, I spent time discussing the management of this critically ill patient with consultants and the medical staff and I spent time documenting in the medical record Ronnie Rojas MD IN CLINIC/BEDSIDE ORDERABL ES Final Result * (ABNORMAL) POCT glucose (12/17/2024 12:27 PM CDT) Glucose, POC 296(H) 70 - 199 mg/dL Blood 12/17/2024 12:2 7 PM CDT 12/17/2024 12:27 PM CDT Meño Chandra MD LAB POCT ORDERABLES - DEVICE Final Result [facility] [place] [address] * (ABNORMAL) Potassium, whole blood (12/17/2024 12:21 PM CDT) Pathologist [facility] Potassium, bld 5.3(H) 3.3 - 4.9 mmol/L Blood 12/17/2024 12:2 1 PM CDT 12/17/2024 12:27 PM CDT Meño Chandra MD LAB BLOOD ORDERABLES Final Result [facility] [place] [address] * Critical Result Callback Chemistry (12/17/2024 12:21 PM CDT) Date Notified [id number] Time Notified 1244 [facility] TestName pO2 Art, O2 Sat Art (Jose) [facility] Called/Read Back Danuta MUÑOZ [facility] Credentials RN [facility] Called By TP [facility] Blood 12/17/2024 12:2 1 PM CDT 12/17/2024 12:27 PM CDT Meño Chandra MD LAB BLOOD ORDERABLES Final Result [facility] Department [place] [address] * (ABNORMAL) POCT glucose (12/17/2024 12:21 PM CDT) Glucose, POC 300(H) 70 - 199 mg/dL Blood 12/17/2024 12:2 1 PM CDT 12/17/2024 12:21 PM CDT Result [facility] Meño Chandra MD LAB POCT ORDERABLES - DEVICE Final Result Performing Organization Address [facility] Co de Phone Number [facility] [place] [address] * Blood gas, arterial (12/17/2024 12:21 PM CDT) pH, Art See Comment 7.35 - 7.45 Comment: Credited, collection error. Credited at the request of Danuta LYONS) on 12/17/2024 13:21:51 CDT by MMR/TRENCH SHOVEL OPERATOR PCO2, Arterial See Comment 35 - 45 [facility] Comment: Credited, collection error. Credited at the request of Danuta LYONS) on 12/17/2024 13:21:51 CDT by MMR/TRENCH SHOVEL OPERATOR PO2, Arterial See Comment 83 - 108 [facility] Comment: Credited, collection error. Credited at the request of Danuta LYONS) on 12/17/2024 13:21:51 CDT by MMR/TRENCH SHOVEL OPERATOR HCO3 Art (Calculated) See Comment 20 - 30 [facility] Comment: Credited, collection error. Credited at the request of Danuta LYONS) on 12/17/2024 13:21:51 CDT by MMR/TRENCH SHOVEL OPERATOR BE, art See Comment [facility] Comment: Credited, collection error. Credited at the request of Danuta LYONS) on 12/17/2024 13:21:51 CDT by MMR/TRENCH SHOVEL OPERATOR Interpretive Data No Reference Range Established Current Interpretive Data was last revised on 2017 O2 Sat Art (Measured) See Comment 90 - 95 [facility] Comment: Credited, collection error. Credited at the request of Danuta Hartman (RN) on 12/17/2024 13:21:51 CDT by MMR/TRENCH SHOVEL OPERATOR Blood 12/17/2024 12:2 1 PM CDT 12/17/2024 12:27 PM CDT Meño Chandra MD LAB BLOOD ORDERABLES Edited Result - Final [facility] [place] [address] * (ABNORMAL) POCT glucose (12/17/2024 12:18 PM CDT) Pathologist [facility] Glucose, POC 293(H) 70 - 199 mg/dL Blood 12/17/2024 12:1 8 PM CDT 12/17/2024 12:18 PM CDT Meño Chandra MD LAB POCT ORDERABLES - DEVICE Final Result [facility] [place] [address] * (ABNORMAL) eGFR (12/17/2024 12:17 PM CDT) eGFR 34(L) >=60 mL/min/1. 73 m2 Comment: Interpretive Data Reference Interval Normal >/= 90 mL/min/1.73m2 Mildly decreased* 60 - 89 mL/min/1.73m2 Mildly to moderately decreased 45 - 59 mL/min/1.73m2 Moderately to severely decreased 30 - 44 mL/min/1.73m2 Severely decreased 15 - 29 mL/min/1.73m2 Kidney Failure < 15 mL/min/1.73m2 *Relative to young adult level Estimated glomerular filtration rate is determined by the 2020 CKD-EPI equation recommended by the National Kidney Foundation (A Unifying Approach to GFR Estimation: Recommendations of the NKF-ASK Task Force on Reassessing the Inclusion of Race in Diagnosing Kidney Disease, JASN 2020). The CKD-EPI equation should not be used for patients with unstable renal function and has not been validated in children and those over 70. Current interpretive data was last reviewed 2021. Blood 12/17/2024 12:1 7 PM CDT 12/17/2024 12:39 PM CDT Scar Pastor MD LAB BLOOD ORDERABLES Final Result Performing Organization Address [facility] Co de Phone Number [facility] [place] [place] [address] * (ABNORMAL) Thyroid Function [place] (12/17/2024 12:17 PM CDT) TSH 4.96(H) 0.30 - 4.20 mcIUnit/mL Blood 12/17/2024 12:1 7 PM CDT 12/17/2024 12:39 PM CDT Meño Chandra MD LAB BLOOD ORDERABLES Final Result Performing Organization Address [facility] Co de Phone Number [facility] [place] [address] * T4, free (12/17/2024 12:17 PM CDT) Free T4 1.19 0.90 - 1.70 ng/dL Blood 12/17/2024 12:1 7 PM CDT 12/17/2024 12:39 PM CDT Meño Chandra MD LAB BLOOD ORDERABLES Final Result Performing Organization Address [facility] Co de Phone Number [facility] [place] [place] [address] * Phosphorus (12/17/2024 12:17 PM CDT) Pathologist [facility] Phosphorus, pl 2.7 2.3 - 4.5 mg/dL Blood 12/17/2024 12:1 7 PM CDT 12/17/2024 12:39 PM CDT Scar Pastor MD LAB BLOOD ORDERABLES Final Result Performing Organization Address City/[facility]/ZIP Co de Phone Number [facility] Department [place] [address] * (ABNORMAL) Magnesium (12/17/2024 12:17 PM CDT) [facility] Magnesium 2.9(H) 1.4 - 2.5 mg/dL Blood 12/17/2024 12:1 7 PM CDT 12/17/2024 12:39 PM CDT Scar Pastor MD LAB BLOOD ORDERABLES Final Result Performing Organization Address [facility] de Phone Number [facility] [place] [address] * (ABNORMAL) Basic metabolic panel (12/17/2024 12:17 PM CDT) [facility] Sodium 134(L) 135 - 145 mmol/L Potassium, pl 5.4(H) 3.3 - 4.9 mmol/L [facility] Chloride 101 97 - 110 mmol/L [facility] CO2 22 22 - 32 mmol/L [facility] Anion gap 11 2 - 15 mmol/L [facility] BUN 41(H) 6 - 25 mg/dL [facility] Creatinine 1.97(H) 0.80 - 1.30 mg/dL [facility] Glucose 295(H) 70 - 199 mg/dL [facility] Comment: Interpretive Data Fasting glucose >/= 126 mg/dl is diagnostic for diabetes. Fasting is defined as no caloric intake for at least 8 hours. Fasting glucose between 100 mg/dl to 125 mg/dl is diagnostic of prediabetes. In a patient with classic symptoms of hyperglycemia or hyperglycemic crisis, a random glucose >/= 200 mg/dl is diagnostic for diabetes. In the absence of unequivocal hyperglycemia, results should be confirmed by repeat testing. The classification and Diagnosis of Diabetes Diabetes Care 2021; 46: S19-S40. Current interpretive data was last revised 2022. Calcium 8.5 8.5 - 10.3 mg/dL [facility] Blood 12/17/2024 12:1 7 PM CDT 12/17/2024 12:39 PM CDT us Scar Pastor MD LAB BLOOD ORDERABLES Final Result [facility] Department [place] [address] * XR Chest 1 View (12/17/2024 11:50 AM CDT) Anatomical Region Laterality Modality Body, Chest N/A Digital Radiogra phy 12/17/2024 2:12 PM CDT Impressions 12/17/2024 2:12 PM CDT Comparison is made to prior chest radiograph dated 12/16/2024 at 9:14 AM Median sternotomy plates are unchanged compared to prior study. Small bilateral pleural effusions with atelectasis, not significantly changed. No pneumothorax. Stable cardiomegaly. Electronically signed by: Lucretia Le M.D. Narrative 12/17/2024 2:12 PM CDT EXAMINATION: 1 view chest radiograph Procedure Note Lucretia Le MD - 12/17/2024 EXAMINATION: 1 view chest radiograph IMPRESSION: Comparison is made to prior chest radiograph dated 12/16/2024 at 9:14 AM Median sternotomy plates are unchanged compared to prior study. Small bilateral pleural effusions with atelectasis, not significantly changed. No pneumothorax. Stable cardiomegaly. Electronically signed by: Lucretia Le M.D. Meño Chandra MD IMG XR PROCEDURES Fi nal Result * POCT glucose (12/17/2024 7:53 AM CDT) Glucose, POC 132 70 - 199 mg/dL Blood 12/17/2024 7:53 AM CDT 12/17/2024 7:53 AM CDT us Meño Chandra MD LAB POCT ORDERABLES - DEVICE Final Result Performing Organization Address [facility] Co de Phone Number [facility] [place] [place] [address] * POCT glucose (12/17/2024 2:57 AM CDT) [facility] Signature Glucose, POC 155 70 - 199 mg/dL Blood 12/17/2024 2:57 AM CDT 12/17/2024 2:57 AM CDT Meño Chandra MD LAB POCT ORDERABLES - DEVICE Final Result Performing Organization Address [facility] Co de Phone Number [facility] [place] [address] * POCT glucose (12/16/2024 9:10 PM CDT) [facility] Signature Glucose, POC 179 70 - 199 mg/dL Blood 12/16/2024 9:10 PM CDT 12/16/2024 9:10 PM CDT Meño Chandra MD LAB POCT ORDERABLES - DEVICE Final Result Performing Organization Address [facility] Co de Phone Number [facility] [place] [address] * (ABNORMAL) eGFR (12/16/2024 9:00 PM CDT) eGFR 33(L) >=60 mL/min/1. 73 m2 Comment: Interpretive Data Reference Interval Normal >/= 90 mL/min/1.73m2 Mildly decreased* 60 - 89 mL/min/1.73m2 Mildly to moderately decreased 45 - 59 mL/min/1.73m2 Moderately to severely decreased 30 - 44 mL/min/1.73m2 Severely decreased 15 - 29 mL/min/1.73m2 Kidney Failure < 15 mL/min/1.73m2 *Relative to young adult level Estimated glomerular filtration rate is determined by the 2020 CKD-EPI equation recommended by the National Kidney Foundation (A Unifying Approach to GFR Estimation: Recommendations of the NKF-ASK Task Force on Reassessing the Inclusion of Race in Diagnosing Kidney Disease, JASN 2020). The CKD-EPI equation should not be used for patients with unstable renal function and has not been validated in children and those over 70. Current interpretive data was last reviewed 2021. Blood 12/16/2024 9:00 PM CDT 12/16/2024 9:31 PM CDT us Meño Chandra MD LAB BLOOD ORDERABLES Final Result [facility] [place] [address] * (ABNORMAL) Protime-INR (12/16/2024 9:00 PM CDT) PT 15.6(H) 9.7 - 13.0 sec INR 1.43(H) 0.90 - 1.20 [facility] Comment: Interpretive data Oral anticoagulant therapeutic ranges: Venous thromboembolism prophylaxis or treatment: 2.0-3.0 CARDIOLOGY Standard range: 2.0-3.0 High-intensity range: 2.5-3.5 Refer to indication-specific guidelines for appropriate target ranges for prosthetic heart valve replacement. Current interpretive data was last revised on 2019. Blood 12/16/2024 9:00 PM CDT 12/16/2024 9:33 PM CDT us Meño Chandra MD LAB BLOOD ORDERABLES Final Result [facility] [place] [address] * (ABNORMAL) CBC without differential (12/16/2024 9:00 PM CDT) WBC 10.71(H) 3.80 - 9.90 K/cumm Hgb 9.0(L) 13.0 - 17.5 g/dL [facility] Hct 28.5(L) 38.9 - 50.3 % [facility] Plt 381 150 - 400 K/cumm [facility] MPV 9.0(L) 9.1 - 12.3 fL [facility] RBC 2.97(L) 4.30 - 5.80 M/cumm [facility] MCV 96.0 81.3 - 96.4 fL [facility] MCH 30.3 27.1 - 33.3 pg [facility] MCHC 31.6(L) 32.3 - 35.7 g/dL [facility] RDW CV 15.7(H) 11.1 - 14.9 % [facility] RDW SD 53.0(H) 35.7 - 48.1 fL [facility] NRBC abs 0.00 0.00 - 0.01 K/cumm [facility] Blood 12/16/2024 9:00 PM CDT 12/16/2024 9:30 PM CDT us Meño Chandra MD LAB BLOOD ORDERABLES Final Result [facility] [place] [place] [address] * Type and screen (12/16/2024 9:00 PM CDT) Terry, indirect Negative ABO Rh A Positive [facility] Blood 12/16/2024 9:00 PM CDT 12/16/2024 9:36 PM CDT Narrative [facility] - 12/16/2024 10:37 PM CDT Has the patient had Daratumumab or Isatuximab in the past 6 months?->Unknown Meño Chandra MD LAB BLOOD BANK TEST ORDERABLES Final Result Performing Organization Address [facility] Co de Phone Number [facility] [address] * Phosphorus (12/16/2024 9:00 PM CDT) [facility] Phosphorus, pl 2.6 2.3 - 4.5 mg/dL Blood 12/16/2024 9:00 PM CDT 12/16/2024 9:25 PM CDT Meño Chandra MD LAB BLOOD ORDERABLES Final Result Performing Organization Address [facility] Co de Phone Number [facility] [place] [place] [address] * (ABNORMAL) Magnesium (12/16/2024 9:00 PM CDT) [facility] Magnesium 2.9(H) 1.4 - 2.5 mg/dL Blood 12/16/2024 9:00 PM CDT 12/16/2024 9:25 PM CDT Meño Chandra MD LAB BLOOD ORDERABLES Final Result Performing Organization Address [facility] [place] [address] * (ABNORMAL) Basic metabolic panel (12/16/2024 9:00 PM CDT) [facility] Sodium 135 135 - 145 mmol/L Potassium, pl 4.8 3.3 - 4.9 mmol/L [facility] Chloride 103 97 - 110 mmol/L [facility] CO2 25 22 - 32 mmol/L [facility] Anion gap 7 2 - 15 mmol/L [facility] BUN 40(H) 6 - 25 mg/dL [facility] Creatinine 2.06(H) 0.80 - 1.30 mg/dL [facility] Glucose 175 70 - 199 mg/dL [facility] Comment: Interpretive Data Fasting glucose >/= 126 mg/dl is diagnostic for diabetes. Fasting is defined as no caloric intake for at least 8 hours. Fasting glucose between 100 mg/dl to 125 mg/dl is diagnostic of prediabetes. In a patient with classic symptoms of hyperglycemia or hyperglycemic crisis, a random glucose >/= 200 mg/dl is diagnostic for diabetes. In the absence of unequivocal hyperglycemia, results should be confirmed by repeat testing. The classification and Diagnosis of Diabetes Diabetes Care 2021; 46: S19-S40. Current interpretive data was last revised 2022. Calcium 8.4(L) 8.5 - 10.3 mg/dL [facility] Blood 12/16/2024 9:00 PM CDT 12/16/2024 9:25 PM CDT us Meño Chandra MD LAB BLOOD ORDERABLES Final Result Performing Organization Address City/[facility]/ZIP Co de Phone Number [facility] Department [place] [place] [address] * POCT glucose (12/16/2024 7:37 PM CDT) Glucose, POC 185 70 - 199 mg/dL Blood 12/16/2024 7:37 PM CDT 12/16/2024 7:37 PM CDT Meño Chandra MD LAB POCT ORDERABLES - DEVICE Final Result [facility] [place] [place] [address] * (ABNORMAL) POCT glucose (12/16/2024 5:16 PM CDT) Glucose, POC 228(H) 70 - 199 mg/dL Blood 12/16/2024 5:16 PM CDT 12/16/2024 5:16 PM CDT Meño Chandra MD LAB POCT ORDERABLES - DEVICE Final Result Performing Organization Address City/[facility]/ZIP Co de Phone Number [facility] [place] [address] * Infection Prevention Jeramie auris PCR, surveillance Axilla/Groin (12/16/2024 3:51 PM CDT) [facility] Jeramie auris DNA Not Detected Not Detected [facility] Comment: Interpretive Data Testing performed by [facility] using the Matt marie 6800 Jeramie auris assay. This assay detects DNA from Jeramie auris using Real-Time PCR. This assay is laboratory developed and is not cleared by the [facility] Food and Drug Administration. The performance characteristics have been verified by the [facility]ious [facility]. Axilla/Groin 12/16/2024 3:51 PM CDT 12/16/2024 3:59 PM CDT Result [facility] Mahendra Downs MD LAB MICROBIOLOGY - GENERAL ORDER PATT Final Result Performing Organization Address [facility] Co de Phone Number [facility] [place] [address] [facility] * (ABNORMAL) POCT glucose (12/16/2024 12:30 PM CDT) Pathologist [facility] Glucose, POC 213(H) 70 - 199 mg/dL Blood 12/16/2024 12:3 0 PM CDT 12/16/2024 12:30 PM CDT Result [facility] Meño Chandra MD LAB POCT ORDERABLES - DEVICE Final Result Performing Organization Address [facility] Co de Phone Number [facility] [place] [address] * POCT glucose (12/16/2024 10:26 AM CDT) Glucose, POC 167 70 - 199 mg/dL Blood 12/16/2024 10:2 6 AM CDT 12/16/2024 10:26 AM CDT Meño Chandra MD LAB POCT ORDERABLES - DEVICE Final Result [facility] [place] [address] * XR Chest 1 View (12/16/2024 9:38 AM CDT) Anatomical Region Laterality Modality Body, Chest N/A Digital Radiogra phy 12/16/2024 2:02 PM CDT Impressions 12/16/2024 3:20 PM CDT The current study is compared with the prior radiograph dated 12/15/2024 Median sternotomy plates and screws appear intact and unchanged. Small lung volumes and associated bronchovascular crowding and atelectasis. Mild right basilar atelectasis stable from previous, no clear sign of aspiration. No pneumothorax. Heart and mediastinum unchanged. Dictated by: Prosper Salazar M.D. The radiology attending physician has personally reviewed this study, and had reviewed and/or edited this written report and agrees with it. Electronically signed by: Yuriy Page M.D. Narrative 12/16/2024 3:20 PM CDT EXAMINATION: 1 view chest radiograph Procedure Note Yuriy Page MD - 12/16/2024 EXAMINATION: 1 view chest radiograph IMPRESSION: The current study is compared with the prior radiograph dated 12/15/2024 Median sternotomy plates and screws appear intact and unchanged. Small lung volumes and associated bronchovascular crowding and atelectasis. Mild right basilar atelectasis stable from previous, no clear sign of aspiration. No pneumothorax. Heart and mediastinum unchanged. Dictated by: Prosper Salazar M.D. The radiology attending physician has personally reviewed this study, and had reviewed and/or edited this written report and agrees with it. Electronically signed by: Yuriy Page M.D. Meño Chandra MD IMG XR PROCEDURES Fi nal Result * Critical Care (12/16/2024 9:00 AM CDT) Narrative Dom Garcia MD - 12/16/2024 9:00 AM CDT Dom Garcia MD 12/16/2024 12:55 PM Critical Care Performed by: Dom Garcia MD Authorized by: Dom Garcia MD CRITICAL CARE: Team: 83 CTICU Shift: AM Level of Billing: Subsequent Hospital Visit Level 2 My time spent with this patient was 35 minutes: Critical Provider Statement: I have seen and examined the patient on this day of service. I have reviewed and confirmed the history, physical exam, laboratory, and radiographic data as documented in the ICU note. I have reviewed and discussed my treatment plan with the patient's team and other medical/home service consultant staff. This time was in addition to and separate from care provided by other practitioners on this day of service. Tachy/anat arrhythmic event Acute kidney injury This time was spent by me doing the following: Acute pain control Initiation/active titration of anti-arrhythmic or rate controlling agent Empiric broad coverage antibiotics and Review of prior or current culture/gram stain results I spent time reviewing and interpreting data from bedside monitors, laboratory results, and imaging, I spent time discussing the management of this critically ill patient with consultants and the medical staff and I spent time documenting in the medical record Dom Garcia MD IN CLINIC/BEDSIDE ORDERABLES Fin al Result * POCT glucose (12/16/2024 7:35 AM CDT) Glucose, POC 88 70 - 199 mg/dL Blood 12/16/2024 7:35 AM CDT 12/16/2024 7:35 AM CDT Meño Chandra MD LAB POCT ORDERABLES - DEVICE Final Result [facility] [place] [address] * POCT glucose (12/16/2024 6:07 AM CDT) Glucose, POC 89 70 - 199 mg/dL Blood 12/16/2024 6:07 AM CDT 12/16/2024 6:07 AM CDT Meño Chandra MD LAB POCT ORDERABLES - DEVICE Final Result Performing Organization Address City/[facility]/[place] [address] * POCT glucose (12/16/2024 2:59 AM CDT) Glucose, POC 84 70 - 199 mg/dL Blood 12/16/2024 2:59 AM CDT 12/16/2024 2:59 AM CDT us Meño Chandra MD LAB POCT ORDERABLES - DEVICE Final Result Performing Organization Address City/[facility]/[place] [address] * POCT glucose (12/15/2024 10:10 PM CDT) Glucose, POC 134 70 - 199 mg/dL Blood 12/15/2024 10:1 0 PM CDT 12/15/2024 10:10 PM CDT Meño Chandra MD LAB POCT ORDERABLES - DEVICE Final Result Performing Organization Address City/[facility]/ZIP Co de Phone Number [facility] [place] [address] * POCT glucose (12/15/2024 9:37 PM CDT) Glucose, POC 95 70 - 199 mg/dL Blood 12/15/2024 9:37 PM CDT 12/15/2024 9:37 PM CDT Meño Chandra MD LAB POCT ORDERABLES - DEVICE Final Result Performing Organization Address [facility] Co de Phone Number [facility] Department [place] [address] * (ABNORMAL) POCT glucose (12/15/2024 9:12 PM CDT) Glucose, POC 61(L) 70 - 199 mg/dL Blood 12/15/2024 9:12 PM CDT 12/15/2024 9:12 PM CDT Meño Chandra MD LAB POCT ORDERABLES - DEVICE Final Result Performing Organization Address [facility] de Phone Number [facility] [place] [address] * (ABNORMAL) eGFR (12/15/2024 8:50 PM CDT) [facility] eGFR 35(L) >=60 mL/min/1. 73 m2 Comment: Interpretive Data Reference Interval Normal >/= 90 mL/min/1.73m2 Mildly decreased* 60 - 89 mL/min/1.73m2 Mildly to moderately decreased 45 - 59 mL/min/1.73m2 Moderately to severely decreased 30 - 44 mL/min/1.73m2 Severely decreased 15 - 29 mL/min/1.73m2 Kidney Failure < 15 mL/min/1.73m2 *Relative to young adult level Estimated glomerular filtration rate is determined by the 2020 CKD-EPI equation recommended by the National Kidney Foundation (A Unifying Approach to GFR Estimation: Recommendations of the NKF-ASK Task Force on Reassessing the Inclusion of Race in Diagnosing Kidney Disease, JASN 202). The CKD-EPI equation should not be used for patients with unstable renal function and has not been validated in children and those over 70. Current interpretive data was last reviewed 2021. Blood 12/15/2024 8:50 PM CDT 12/15/2024 8:55 PM CDT Result [facility] Meño Chandra MD LAB BLOOD ORDERABLES Final Result Performing Organization Address City/[facility]/ZIP Co de Phone Number [facility] [place] [place] [address] * Critical Result Callback Chemistry (12/15/2024 8:50 PM CDT) Date Notified [id number] Time Notified 2202 [facility] TestName Dewey RODRIGUES Called/Read Back Emily [facility] Credentials RN [facility] Called By TIMOTHY [facility] Blood 12/15/2024 8:50 PM CDT 12/15/2024 8:55 PM CDT Result [facility] Meño Chandra MD LAB BLOOD ORDERABLES Final Result Performing Organization Address [facility] [place] [address] * (ABNORMAL) Protime-INR (12/15/2024 8:50 PM CDT) PT 17.2(H) 9.7 - 13.0 sec INR 1.58(H) 0.90 - 1.20 [facility] Comment: Interpretive data Oral anticoagulant therapeutic ranges: Venous thromboembolism prophylaxis or treatment: 2.0-3.0 CARDIOLOGY Standard range: 2.0-3.0 High-intensity range: 2.5-3.5 Refer to indication-specific guidelines for appropriate target ranges for prosthetic heart valve replacement. Current interpretive data was last revised on 2019. Blood 12/15/2024 8:50 PM CDT 12/15/2024 9:05 PM CDT Result [facility] Meño Chandra MD LAB BLOOD ORDERABLES Final Result Performing Organization Address [facility]/ZIP Co de Phone Number [facility] [place] [address] * (ABNORMAL) CBC without differential (12/15/2024 8:50 PM CDT) WBC 15.82(H) 3.80 - 9.90 K/cumm Hgb 8.4(L) 13.0 - 17.5 g/dL [facility] Hct 26.2(L) 38.9 - 50.3 % [facility] Plt 390 150 - 400 K/cumm [facility] MPV 9.2 9.1 - 12.3 fL [facility] RBC 2.74(L) 4.30 - 5.80 M/cumm [facility] MCV 95.6 81.3 - 96.4 fL [facility] MCH 30.7 27.1 - 33.3 pg [facility] MCHC 32.1(L) 32.3 - 35.7 g/dL [facility] RDW CV 15.5(H) 11.1 - 14.9 % [facility] RDW SD 52.2(H) 35.7 - 48.1 fL [facility] NRBC abs 0.02(H) 0.00 - 0.01 K/cumm [facility] Blood 12/15/2024 8:50 PM CDT 12/15/2024 9:03 PM CDT Meño Chandra MD LAB BLOOD ORDERABLES Final Result [facility] Department [place] [address] * Type and screen (12/15/2024 8:50 PM CDT) ABO Rh A Positive Terry, indirect Negative [facility] Blood 12/15/2024 8:50 PM CDT 12/15/2024 9:11 PM CDT Narrative [facility] - 12/15/2024 10:20 PM CDT Has the patient had Daratumumab or Isatuximab in the past 6 months?->Unknown Meño Chandra MD LAB BLOOD BANK TEST ORDERABLES Final Result Performing Organization Address [facility] Co de Phone Number [facility] [place] [address] * Phosphorus (12/15/2024 8:50 PM CDT) [facility] Phosphorus, pl 2.8 2.3 - 4.5 mg/dL Blood 12/15/2024 8:5 0 PM CDT 12/15/2024 8:55 PM CDT Meño Chandra MD LAB BLOOD ORDERABLES Final Result Performing Organization Address [facility] Co de Phone Number [facility] Department [place] [address] * (ABNORMAL) Magnesium (12/15/2024 8:50 PM CDT) [facility] Magnesium 2.8(H) 1.4 - 2.5 mg/dL Blood 12/15/2024 8:50 PM CDT 12/15/2024 8:55 PM CDT Result [facility] Meño Chandra MD LAB BLOOD ORDERABLES Final Result Performing Organization Address [facility] Co de Phone Number [facility] [place] [address] * (ABNORMAL) Basic metabolic panel (12/15/2024 8:50 PM CDT) [facility] Sodium 138 135 - 145 mmol/L Potassium, pl 4.7 3.3 - 4.9 mmol/L [facility] Chloride 104 97 - 110 mmol/L [facility] CO2 24 22 - 32 mmol/L [facility] Anion gap 10 2 - 15 mmol/L [facility] BUN 46(H) 6 - 25 mg/dL [facility] Creatinine 1.92(H) 0.80 - 1.30 mg/dL [facility] Glucose 47(C) 70 - 199 mg/dL [facility] Comment: Glycolysis suspected; suggest sending a lemon top tube. Interpretive Data Fasting glucose >/= 126 mg/dl is diagnostic for diabetes. Fasting is defined as no caloric intake for at least 8 hours. Fasting glucose between 100 mg/dl to 125 mg/dl is diagnostic of prediabetes. In a patient with classic symptoms of hyperglycemia or hyperglycemic crisis, a random glucose >/= 200 mg/dl is diagnostic for diabetes. In the absence of unequivocal hyperglycemia, results should be confirmed by repeat testing. The classification and Diagnosis of Diabetes Diabetes Care 2021; 46: S19-S40. Current interpretive data was last revised 2022. Calcium 8.4(L) 8.5 - 10.3 mg/dL [facility] Blood 12/15/2024 8:50 PM CDT 12/15/2024 8:55 PM CDT us Meño Chandra MD LAB BLOOD ORDERABLES Final Result [facility] Department [place] [place] [address] * (ABNORMAL) POCT glucose (12/15/2024 8:48 PM CDT) Glucose, POC 56(L) 70 - 199 mg/dL Blood 12/15/2024 8:48 PM CDT 12/15/2024 8:48 PM CDT us Meño Chandra MD LAB POCT ORDERABLES - DEVICE Final Result [facility] [place] [address] * (ABNORMAL) POCT glucose (12/15/2024 8:47 PM CDT) Glucose, POC 55(L) 70 - 199 mg/dL Blood 12/15/2024 8:47 PM CDT 12/15/2024 8:47 PM CDT Meño Chandra MD LAB POCT ORDERABLES - DEVICE Final Result Performing Organization Address [facility] Co de Phone Number [facility] [place] [place] [address] * POCT glucose (12/15/2024 5:31 PM CDT) Glucose, POC 154 70 - 199 mg/dL Blood 12/15/2024 5:31 PM CDT 12/15/2024 5:31 PM CDT Meño Chandra MD LAB POCT ORDERABLES - DEVICE Final Result Performing Organization Address [facility] de Phone Number [facility] [place] [place] [address] * (ABNORMAL) POCT glucose (12/15/2024 1:05 PM CDT) Glucose, POC 300(H) 70 - 199 mg/dL Blood 12/15/2024 1:05 PM CDT 12/15/2024 1:05 PM CDT Meño Chandra MD LAB POCT ORDERABLES - DEVICE Final Result Performing Organization Address [facility] de Phone Number [facility] [place] [place] [address] * Critical Care (12/15/2024 8:51 AM CDT) Narrative Dom Garcia MD - 12/15/2024 8:51 AM CDT Dom Garcia MD 12/15/2024 3:21 PM Critical Care Performed by: Dom Garcia MD Authorized by: Dom Garcia MD CRITICAL CARE: Team: 83 CTICU Shift: AM Level of Billing: Critical Care My time spent with this patient was 30 minutes: Critical Provider Statement: I have seen and examined the patient on this day of service. I have reviewed and confirmed the history, physical exam, laboratory and radiologic data as documented in the signed ICU note. I have reviewed and discussed my treatment plan with the ICU team and other medical/home service consultant staff, making frequent assessments and decisions regarding this patient's complex medical care. Critical Care time was exclusive of time spent performing separately billed procedures, treating other patients, and teaching. This time was in addition to and separate from critical care provided by other practitioners in my group on this day of service. Critical Care was necessary to treat or prevent imminent or life-threatening deterioration of the following conditions: Acute delirium Atrial fibrillation with rapid ventricular rate and Tachy/anat arrhythmic event Atelectasis Acute kidney injury Pneumonia This time was spent by me doing the following: Acute pain control and Administration of sedatives and psychotropic medications Cardiac pacing and Initiation/active titration of anti-arrhythmic or rate controlling agent Empiric broad coverage antibiotics I spent time reviewing and interpreting data from bedside monitors, laboratory results, and imaging, I spent time discussing the management of this critically ill patient with consultants and the medical staff and I spent time documenting in the medical record us Dom Garcia MD IN CLINIC/BEDSIDE ORDERABLES Fin al Result * XR Chest 1 View (12/15/2024 8:50 AM CDT) Anatomical Region Laterality Modality Body, Chest N/A Computed Radiogr aphy 12/15/2024 10:5 7 AM CDT Impressions 12/15/2024 11:21 AM CDT The current study is compared with the prior radiograph dated 12/13/2024. Median sternotomy plates and screws. Small right pleural effusion. No definite left pleural effusion, left costophrenic angle is not completely evaluated as it is out of the [id number]. Mild bibasilar atelectasis. No pneumothorax. Heart and mediastinum are unchanged. Dictated by: Taniya Maloney M.D. The radiology attending physician has personally reviewed this study, and had reviewed and/or edited this written report and agrees with it. Electronically signed by: Grace De Jesus M.D. Narrative 12/15/2024 11:21 AM CDT EXAMINATION: 1 view chest radiograph Procedure Note Grace De Jesus MD - 12/15/2024 EXAMINATION: 1 view chest radiograph IMPRESSION: The current study is compared with the prior radiograph dated 12/13/2024. Median sternotomy plates and screws. Small right pleural effusion. No definite left pleural effusion, left costophrenic angle is not completely evaluated as it is out of the [id number]. Mild bibasilar atelectasis. No pneumothorax. Heart and mediastinum are unchanged. Dictated by: Taniya Maloney M.D. The radiology attending physician has personally reviewed this study, and had reviewed and/or edited this written report and agrees with it. Electronically signed by: Grace De Jesus M.D. Meño Chandra MD IMG XR PROCEDURES Fi nal Result * POCT glucose (12/15/2024 8:42 AM CDT) Glucose, POC 79 70 - 199 mg/dL Blood 12/15/2024 8:42 AM CDT 12/15/2024 8:42 AM CDT Meño Chandra MD LAB POCT ORDERABLES - DEVICE Final Result Performing Organization Address [facility] Co de Phone Number [facility] Department [place] [place] [address] * POCT glucose (12/15/2024 2:31 AM CDT) Glucose, POC 99 70 - 199 mg/dL Blood 12/15/2024 2:31 AM CDT 12/15/2024 2:31 AM CDT Meño Chandra MD LAB POCT ORDERABLES - DEVICE Final Result Performing Organization Address [facility] Co de Phone Number [facility] Department [place] [address] * POCT glucose (12/15/2024 12:30 AM CDT) Glucose, POC 116 70 - 199 mg/dL Blood 12/15/2024 12:3 0 AM CDT 12/15/2024 12:30 AM CDT Meño Chandra MD LAB POCT ORDERABLES - DEVICE Final Result [facility] [place] [address] * ECG 12 lead (12/14/2024 11:52 PM CDT) [facility] Ventricular Rate EKG/Min 51 BPM [facility] Atrial Rate 51 BPM [facility] AL-Interval (MSEC) 160 ms [facility] QRS-Interval (MSEC) 94 ms [facility] QT-Interval (MSEC) 510 ms [facility] QTc 470 ms [facility] P Zalma 60 degrees [facility] R Zalma -7 degrees [facility] T Zalma 108 degrees [facility] Diagnosis Sinus bradycardia with occasional ventricular-pa joelle complexes Nonspecific ST and T wave abnormality Abnormal ECG Confirmed by Jayesh Freedman MD ([id number]) on 12/18/2024 12:14:15 AM [facility] 12/14/2024 11:5 2 PM CDT 12/18/2024 12:14 AM CDT us Meño Chandra MD ECG ORDERABLES Caro l Result [facility] * POCT glucose (12/14/2024 10:37 PM CDT) Glucose, POC 110 70 - 199 mg/dL Blood 12/14/2024 10:3 7 PM CDT 12/14/2024 10:37 PM CDT Meño Chandra MD LAB POCT ORDERABLES - DEVICE Final Result Performing Organization Address [facility] Co de Phone Number [facility] [place] [address] * (ABNORMAL) eGFR (12/14/2024 9:34 PM CDT) eGFR 35(L) >=60 mL/min/1. 73 m2 Comment: Interpretive Data Reference Interval Normal >/= 90 mL/min/1.73m2 Mildly decreased* 60 - 89 mL/min/1.73m2 Mildly to moderately decreased 45 - 59 mL/min/1.73m2 Moderately to severely decreased 30 - 44 mL/min/1.73m2 Severely decreased 15 - 29 mL/min/1.73m2 Kidney Failure < 15 mL/min/1.73m2 *Relative to young adult level Estimated glomerular filtration rate is determined by the 2020 CKD-EPI equation recommended by the National Kidney Foundation (A Unifying Approach to GFR Estimation: Recommendations of the NKF-ASK Task Force on Reassessing the Inclusion of Race in Diagnosing Kidney Disease, JASN 2020). The CKD-EPI equation should not be used for patients with unstable renal function and has not been validated in children and those over 70. Current interpretive data was last reviewed 2021. Blood 12/14/2024 9:34 PM CDT 12/14/2024 10:02 PM CDT Meño Chandra MD LAB BLOOD ORDERABLES Final Result Performing Organization Address [facility] Co de Phone Number [facility] [place] [address] * (ABNORMAL) Protime-INR (12/14/2024 9:34 PM CDT) PT 17.5(H) 9.7 - 13.0 sec INR 1.60(H) 0.90 - 1.20 [facility] Comment: Interpretive data Oral anticoagulant therapeutic ranges: Venous thromboembolism prophylaxis or treatment: 2.0-3.0 CARDIOLOGY Standard range: 2.0-3.0 High-intensity range: 2.5-3.5 Refer to indication-specific guidelines for appropriate target ranges for prosthetic heart valve replacement. Current interpretive data was last revised on 2019. Blood 12/14/2024 9:34 PM CDT 12/14/2024 10:03 PM CDT us Meño Chandra MD LAB BLOOD ORDERABLES Final Result Performing Organization Address City/[facility]/ZIP Co de Phone Number [facility] Department [place] [address] * (ABNORMAL) CBC without differential (12/14/2024 9:34 PM CDT) WBC 16.61(H) 3.80 - 9.90 K/cumm Hgb 8.7(L) 13.0 - 17.5 g/dL [facility] Hct 26.3(L) 38.9 - 50.3 % [facility] Plt 405(H) 150 - 400 K/cumm [facility] MPV 9.4 9.1 - 12.3 fL [facility] RBC 2.80(L) 4.30 - 5.80 M/cumm [facility] MCV 93.9 81.3 - 96.4 fL [facility] MCH 31.1 27.1 - 33.3 pg [facility] MCHC 33.1 32.3 - 35.7 g/dL [facility] RDW CV 15.2(H) 11.1 - 14.9 % [facility] RDW SD 50.4(H) 35.7 - 48.1 fL [facility] NRBC abs 0.03(H) 0.00 - 0.01 K/cumm [facility] Blood 12/14/2024 9:34 PM CDT 12/14/2024 9:54 PM CDT us Meño Chandra MD LAB BLOOD ORDERABLES Final Result [facility] [place] [address] * Phosphorus (12/14/2024 9:34 PM CDT) Pathologist [facility] Phosphorus, pl 3.6 2.3 - 4.5 mg/dL Blood 12/14/2024 9:34 PM CDT 12/14/2024 9:55 PM CDT Meño Chandra MD LAB BLOOD ORDERABLES Final Result [facility] [place] [place] [address] * (ABNORMAL) Magnesium (12/14/2024 9:34 PM CDT) [facility] Magnesium 2.8(H) 1.4 - 2.5 mg/dL Blood 12/14/2024 9:34 PM CDT 12/14/2024 9:55 PM CDT Meño Chandra MD LAB BLOOD ORDERABLES Final Result Performing Organization Address City/[facility]/[place] [address] * (ABNORMAL) Hepatic function panel (12/14/2024 9:34 PM CDT) [facility] Bilirubin, total 0.3 0.1 - 1.2 mg/dL Bilirubin, direct 0.2 0.1 - 0.3 mg/dL [facility] Protein, pl 6.2(L) 6.5 - 8.5 g/dL [facility] Albumin 3.0(L) 3.5 - 5.0 g/dL [facility] Alk phos 134(H) 40 - 130 Units/L [facility] ALT 221(H) 7 - 55 Units/L [facility] AST 126(H) 10 - 50 Units/L [facility] Blood 12/14/2024 9:34 PM CDT 12/14/2024 10:02 PM CDT us Robert Mas MD LAB BLOOD ORDERABL ES Final Result [facility] Department [place] [address] * (ABNORMAL) Basic metabolic panel (12/14/2024 9:34 PM CDT) [facility] Sodium 137 135 - 145 mmol/L Potassium, pl 4.6 3.3 - 4.9 mmol/L [facility] Chloride 104 97 - 110 mmol/L [facility] CO2 26 22 - 32 mmol/L [facility] Anion gap 7 2 - 15 mmol/L [facility] BUN 50(H) 6 - 25 mg/dL [facility] Creatinine 1.95(H) 0.80 - 1.30 mg/dL [facility] Glucose 69(L) 70 - 199 mg/dL [facility] Comment: Interpretive Data Fasting glucose >/= 126 mg/dl is diagnostic for diabetes. Fasting is defined as no caloric intake for at least 8 hours. Fasting glucose between 100 mg/dl to 125 mg/dl is diagnostic of prediabetes. In a patient with classic symptoms of hyperglycemia or hyperglycemic crisis, a random glucose >/= 200 mg/dl is diagnostic for diabetes. In the absence of unequivocal hyperglycemia, results should be confirmed by repeat testing. The classification and Diagnosis of Diabetes Diabetes Care 2021; 46: S19-S40. Current interpretive data was last revised 2022. Calcium 8.3(L) 8.5 - 10.3 mg/dL [facility] Blood 12/14/2024 9:34 PM CDT 12/14/2024 9:55 PM CDT us Meño Chandra MD LAB BLOOD ORDERABLES Final Result [facility] [place] [address] * POCT glucose (12/14/2024 9:33 PM CDT) Glucose, POC 78 70 - 199 mg/dL Blood 12/14/2024 9:33 PM CDT 12/14/2024 9:33 PM CDT Meño Chandra MD LAB POCT ORDERABLES - DEVICE Final Result Performing Organization Address [facility] Co de Phone Number [facility] Department [place] [address] * (ABNORMAL) POCT glucose (12/14/2024 3:42 PM CDT) Pathologist [facility] Glucose, POC 308(H) 70 - 199 mg/dL Blood 12/14/2024 3:42 PM CDT 12/14/2024 3:42 PM CDT Meño Chandra MD LAB POCT ORDERABLES - DEVICE Final Result Performing Organization Address [facility] de Phone Number [facility] [place] [address] * ECG 12 lead (12/14/2024 3:24 PM CDT) [facility] Ventricular Rate EKG/Min 100 BPM [facility] Atrial Rate 100 BPM [facility] AL-Interval (MSEC) 204 ms [facility] QRS-Interval (MSEC) 100 ms [facility] QT-Interval (MSEC) 360 ms [facility] QTc 464 ms [facility] P Zalma 36 degrees [facility] R Zalma -12 degrees [facility] T Zalma 130 degrees [facility] Diagnosis Normal sinus rhythm Inferior-commercial banker ior infarct , age undetermined ST & T wave abnormality, consider lateral ischemia Abnormal ECG Confirmed by Jayesh Freedman MD ([id number]) on 12/18/2024 12:13:07 AM [facility] 12/14/2024 3:24 PM CDT 12/18/2024 12:13 AM CDT Meño Chandra MD ECG ORDERABLES Caro l Result [facility] * POCT glucose (12/14/2024 12:22 PM CDT) Glucose, POC 167 70 - 199 mg/dL Blood 12/14/2024 12:2 2 PM CDT 12/14/2024 12:22 PM CDT Meño Chandra MD LAB POCT ORDERABLES - DEVICE Final Result [facility] [place] [address] * Critical Care (12/14/2024 8:40 AM CDT) Narrative Dom Garcia MD - 12/14/2024 8:40 AM CDT Dom Garcia MD 12/14/2024 4:23 PM Critical Care Performed by: Dom Garcia MD Authorized by: Dom Garcia MD CRITICAL CARE: Team: 83 CTICU Shift: AM Level of Billing: Subsequent Hospital Visit Level 2 My time spent with this patient was 25 minutes: Critical Provider Statement: I have seen and examined the patient on this day of service. I have reviewed and confirmed the history, physical exam, laboratory, and radiographic data as documented in the ICU note. I have reviewed and discussed my treatment plan with the patient's team and other medical/home service consultant staff. This time was in addition to and separate from care provided by other practitioners on this day of service. Tachy/anat arrhythmic event and Atrial fibrillation with rapid ventricular rate insomnia Atelectasis Pneumonia This time was spent by me doing the following: Administration of sedatives and psychotropic medications Initiation/active titration of anti-arrhythmic or rate controlling agent Incentive spirometry, pulmonary toilet Active diuresis Empiric broad coverage antibiotics and Review of prior or current culture/gram stain results I spent time reviewing and interpreting data from bedside monitors, laboratory results, and imaging, I spent time discussing the management of this critically ill patient with consultants and the medical staff and I spent time documenting in the medical record Result Monique Garcia MD IN CLINIC/BEDSIDE ORDERABLES Fin al Result * Infection Prevention MRSA Only (Staphylococcus aureus) Culture Nasal (12/14/2024 8:32 AM CDT) Report Final Report: Negative Nasal 12/14/2024 8:32 AM CDT 12/14/2024 9:02 AM CDT Narrative [facility] 12/15/2024 12:23 PM CDT Testing performed by [facility] ([phone]). Meño Chandra MD LAB MICROBIOLOGY - G ENERAL ORDERABLES Final Result [facility] Department [place] [address] * POCT glucose (12/14/2024 7:41 AM CDT) Glucose, POC 95 70 - 199 mg/dL Blood 12/14/2024 7:41 AM CDT 12/14/2024 7:41 AM CDT Meño Chandra MD LAB POCT ORDERABLES - DEVICE Final Result [facility] Department [place] [address] * XR Chest 1 View (12/14/2024 4:22 AM CDT) Anatomical Region Laterality Modality Body, Chest N/A Digital Radiogra phy 12/14/2024 2:04 PM CDT Impressions 12/14/2024 4:25 PM CDT The current study is compared with the prior radiograph dated 12/13/2024 Median sternotomy plates and screws appear unchanged in alignment given rotation. Patient is status post aortic valve replacement. This radiograph was obtained in rotated position. The hazy opacities overlying the right hemithorax is likely secondary to soft tissue in the setting of patient rotation. There is a small left pleural effusion and moderate left basilar atelectasis. No definite right effusion. No pneumothorax. Heart and mediastinum unchanged from previous. Dictated by: Prosper Salazar M.D. The radiology attending physician has personally reviewed this study, and had reviewed and/or edited this written report and agrees with it. Electronically signed by: Earl Perez M.D. Narrative 12/14/2024 4:25 PM CDT EXAMINATION: 1 view chest radiograph Procedure Note Earl ePrez MD PhD - 12/14/2024 EXAMINATION: 1 view chest radiograph IMPRESSION: The current study is compared with the prior radiograph dated 12/13/2024 Median sternotomy plates and screws appear unchanged in alignment given rotation. Patient is status post aortic valve replacement. This radiograph was obtained in rotated position. The hazy opacities overlying the right hemithorax is likely secondary to soft tissue in the setting of patient rotation. There is a small left pleural effusion and moderate left basilar atelectasis. No definite right effusion. No pneumothorax. Heart and mediastinum unchanged from previous. Dictated by: Prosper Salazar M.D. The radiology attending physician has personally reviewed this study, and had reviewed and/or edited this written report and agrees with it. Electronically signed by: Earl Perez M.D. Meño Chandra MD IMG XR PROCEDURES Fi nal Result * POCT glucose (12/14/2024 2:49 AM CDT) [facility] Glucose, POC 128 70 - 199 mg/dL Blood 12/14/2024 2:49 AM CDT 12/14/2024 2:49 AM CDT Meño Chandra MD LAB POCT ORDERABLES - DEVICE Final Result [facility] Department [place] [address] * (ABNORMAL) eGFR (12/13/2024 9:50 PM CDT) [facility] eGFR 44(L) >=60 mL/min/1. 73 m2 Comment: Interpretive Data Reference Interval Normal >/= 90 mL/min/1.73m2 Mildly decreased* 60 - 89 mL/min/1.73m2 Mildly to moderately decreased 45 - 59 mL/min/1.73m2 Moderately to severely decreased 30 - 44 mL/min/1.73m2 Severely decreased 15 - 29 mL/min/1.73m2 Kidney Failure < 15 mL/min/1.73m2 *Relative to young adult level Estimated glomerular filtration rate is determined by the 2020 CKD-EPI equation recommended by the National Kidney Foundation (A Unifying Approach to GFR Estimation: Recommendations of the NKF-ASK Task Force on Reassessing the Inclusion of Race in Diagnosing Kidney Disease, JASN 2020). The CKD-EPI equation should not be used for patients with unstable renal function and has not been validated in children and those over 70. Current interpretive data was last reviewed 2021. Blood 12/13/2024 9:50 PM CDT 12/13/2024 10:00 PM CDT us Meño Chandra MD LAB BLOOD ORDERABLES Final Result [facility] [place] [address] * (ABNORMAL) Protime-INR (12/13/2024 9:50 PM CDT) PT 16.9(H) 9.7 - 13.0 sec INR 1.55(H) 0.90 - 1.20 [facility] Comment: Interpretive data Oral anticoagulant therapeutic ranges: Venous thromboembolism prophylaxis or treatment: 2.0-3.0 CARDIOLOGY Standard range: 2.0-3.0 High-intensity range: 2.5-3.5 Refer to indication-specific guidelines for appropriate target ranges for prosthetic heart valve replacement. Current interpretive data was last revised on 2019. Blood 12/13/2024 9:50 PM CDT 12/13/2024 10:11 PM CDT Meño Chandra MD LAB BLOOD ORDERABLES Final Result Performing Organization Address [facility] Co de Phone Number [facility] [place] [address] * (ABNORMAL) CBC without differential (12/13/2024 9:50 PM CDT) WBC 18.65(H) 3.80 - 9.90 K/cumm Hgb 8.9(L) 13.0 - 17.5 g/dL [facility] Hct 26.9(L) 38.9 - 50.3 % [facility] Plt 382 150 - 400 K/cumm [facility] MPV 9.2 9.1 - 12.3 fL [facility] RBC 2.87(L) 4.30 - 5.80 M/cumm [facility] MCV 93.7 81.3 - 96.4 fL [facility] MCH 31.0 27.1 - 33.3 pg [facility] MCHC 33.1 32.3 - 35.7 g/dL [facility] RDW CV 15.4(H) 11.1 - 14.9 % [facility] RDW SD 49.9(H) 35.7 - 48.1 fL [facility] NRBC abs 0.02(H) 0.00 - 0.01 K/cumm [facility] Blood 12/13/2024 9:50 PM CDT 12/13/2024 10:00 PM CDT Meño Chandra MD LAB BLOOD ORDERABLES Final Result [facility] Department [place] [address] * Phosphorus (12/13/2024 9:50 PM CDT) Phosphorus, pl 3.5 2.3 - 4.5 mg/dL Blood 12/13/2024 9:50 PM CDT 12/13/2024 10:00 PM CDT Meño Chandra MD LAB BLOOD ORDERABLES Final Result [facility] [place] [address] * (ABNORMAL) Magnesium (12/13/2024 9:50 PM CDT) Pathologist [facility] Magnesium 2.7(H) 1.4 - 2.5 mg/dL Blood 12/13/2024 9:50 PM CDT 12/13/2024 10:00 PM CDT Meño Chandra MD LAB BLOOD ORDERABLES Final Result Performing Organization Address [facility] Co de Phone Number [facility] Department [place] [address] * (ABNORMAL) Basic metabolic panel (12/13/2024 9:50 PM CDT) Pathologist [facility] Sodium 140 135 - 145 mmol/L Potassium, pl 5.1(H) 3.3 - 4.9 mmol/L [facility] Chloride 106 97 - 110 mmol/L [facility] CO2 24 22 - 32 mmol/L [facility] Anion gap 10 2 - 15 mmol/L [facility] BUN 44(H) 6 - 25 mg/dL [facility] Creatinine 1.61(H) 0.80 - 1.30 mg/dL [facility] Glucose 144 70 - 199 mg/dL [facility] Comment: Interpretive Data Fasting glucose >/= 126 mg/dl is diagnostic for diabetes. Fasting is defined as no caloric intake for at least 8 hours. Fasting glucose between 100 mg/dl to 125 mg/dl is diagnostic of prediabetes. In a patient with classic symptoms of hyperglycemia or hyperglycemic crisis, a random glucose >/= 200 mg/dl is diagnostic for diabetes. In the absence of unequivocal hyperglycemia, results should be confirmed by repeat testing. The classification and Diagnosis of Diabetes Diabetes Care 2021; 46: S19-S40. Current interpretive data was last revised 2022. Calcium 8.1(L) 8.5 - 10.3 mg/dL [facility] Blood 12/13/2024 9:50 PM CDT 12/13/2024 10:00 PM CDT Meño Chandra MD LAB BLOOD ORDERABLES Final Result Performing Organization Address [facility] Co de Phone Number [facility] [place] [place] [address] * POCT glucose (12/13/2024 9:48 PM CDT) Glucose, POC 159 70 - 199 mg/dL Blood 12/13/2024 9:48 PM CDT 12/13/2024 9:48 PM CDT Result [facility] Meño Chandra MD LAB POCT ORDERABLES - DEVICE Final Result Performing Organization Address [facility] Co de Phone Number [facility] [place] [place] [address] * POCT glucose (12/13/2024 5:38 PM CDT) Glucose, POC 178 70 - 199 mg/dL Blood 12/13/2024 5:38 PM CDT 12/13/2024 5:38 PM CDT Result [facility] Meño Chandra MD LAB POCT ORDERABLES - DEVICE Final Result Performing Organization Address City/[facility] Co de Phone Number [facility] [place] [place] [address] * POCT glucose (12/13/2024 5:22 PM CDT) Glucose, POC 170 70 - 199 mg/dL Blood 12/13/2024 5:22 PM CDT 12/13/2024 5:22 PM CDT Meño Chandra MD LAB POCT ORDERABLES - DEVICE Final Result [facility] [place] [address] * POCT glucose (12/13/2024 11:14 AM CDT) [facility] Glucose, POC 136 70 - 199 mg/dL Blood 12/13/2024 11:1 4 AM CDT 12/13/2024 11:14 AM CDT Meño Chandra MD LAB POCT ORDERABLES - DEVICE Final Result Performing Organization Address [facility] Co de Phone Number [facility] [place] [address] * Respiratory pathogen panel Nasopharyngeal (12/13/2024 9:24 AM CDT) [facility] Influenza A RNA Not Detected Not Detected Influenza B RNA Not Detected Not Detected [facility] RSV RNA Not Detected Not Detected [facility] COVID-19 RNA Not Detected Not Detected [facility] Coronavirus 229E RNA Not Detected Not Detected [facility] Coronavirus HKU1 RNA Not Detected Not Detected [facility] Coronavirus NL63 RNA Not Detected Not Detected [facility] Coronavirus OC43 RNA Not Detected Not Detected [facility] Adenovirus DNA Not Detected Not Detected [facility] Metapneumovirus RNA Not Detected Not Detected [facility] Rhinovirus/Enterov irus RNA Not Detected Not Detected [facility] Parainfluenza 1 RNA Not Detected Not Detected [facility] Parainfluenza 2 RNA Not Detected Not Detected [facility] Parainfluenza 3 RNA Not Detected Not Detected [facility] Parainfluenza 4 RNA Not Detected Not Detected [facility] B. pertussis DNA Not Detected Not Detected [facility] B. parapertussis DNA Not Detected Not Detected [facility] C. pneumoniae DNA Not Detected Not Detected [facility] M. pneumoniae DNA Not Detected Not Detected [facility] Nasopharyngeal 12/13/2024 9: 24 AM CDT 12/13/2024 9:35 AM CDT Swetha [facility] - 12/13/2024 10:41 AM CDT Is the Patient experiencing symptoms consistent with COVID?->Unknown Surveillance testing for transplant patient?->No Interpretive Data The [employer] FilmArray Respiratory Panel (RP2.1) assay is a multiplexed real-time PCR based nucleic acid test capable of simultaneous qualitative detection and identification of multiple respiratory viral and bacterial nucleic acids, including SARS Coronavirus 2 (the causative agent of COVID-19). The following bacteria, viruses and virus subtypes can be identified using the FilmArray RP2.1 assay: Bordetella pertussis, Bordetella parapertussis, Chlamydia pneumoniae, Mycoplasma pneumoniae, Adenovirus, SARS Coronavirus 2, seasonal coronaviruses (Coronavirus HKU1, Coronavirus NL63, Coronavirus 229E, and Coronavirus OC43), Influenza A, Influenza A subtype H1, Influenza A subtype H3, Influenza A subtype 2009 H1, Influenza B, Metapneumovirus, Parainfluenza 1, Parainfluenza 2, Parainfluenza 3, Parainfluenza 4, RSV, Rhinovirus/Enterovirus. Due to the genetic similarity between human Rhinovirus and Enterovirus, the FilmArray RP2.1 assay cannot reliably differentiate them. Coronavirus OC43 may cross-react with some isolates of Coronavirus HKU1. A dual positive result may be due to cross-reactivity or may indicate a co- infection. The detection and identification of specific viral and bacterial nucleic acids from individuals exhibiting signs and symptoms of a respiratory infection aids in the diagnosis of respiratory infection if used in conjunction with other clinical and epidemiological information. The results of this test should not be used as the sole basis for diagnosis, treatment, or other management decisions. Negative results in the setting of a respiratory illness may be due to infection with pathogens that are not detected by this test. Positive results do not rule out infection/co-infection with other organisms. The agent(s) detected by the FilmArray RP2.1 may not be the definite cause of disease. Additional testing (lab, imaging, etc.) may be necessary when evaluating a patient with possible respiratory tract infection. The FilmArray RP2.1 assay has FDA clearance for testing of CLAIM BENEFIT SPECIALIST swabs. The performance of additional specimen types has been assessed by the performing laboratory. The performance characteristics of this assay have been determined by [facility] Molecular Infectious Disease Laboratory. Current interpretive data was last revised on 22. us Meño Chandra MD LAB MICROBIOLOGY - G ENERAL ORDERABLES Final Result [facility] [place] [address] * Critical Care (12/13/2024 8:41 AM CDT) Narrative Dom Garcia MD - 12/13/2024 8:41 AM CDT Dom Garcia MD 12/13/2024 1:57 PM Critical Care Performed by: Dom Garcia MD Authorized by: Dom Garcia MD CRITICAL CARE: Team: 83 CTICU Shift: AM Level of Billing: Subsequent Hospital Visit Level 2 My time spent with this patient was 30 minutes: Critical Provider Statement: I have seen and examined the patient on this day of service. I have reviewed and confirmed the history, physical exam, laboratory, and radiographic data as documented in the ICU note. I have reviewed and discussed my treatment plan with the patient's team and other medical/home service consultant staff. This time was in addition to and separate from care provided by other practitioners on this day of service. Acute pain/acute postoperative pain Tachy/anat arrhythmic event Atelectasis Acute kidney injury and Hypo- or Hyperglycemia Pneumonia This time was spent by me doing the following: Initiation/active titration of anti-arrhythmic or rate controlling agent and Cardiac pacing Empiric broad coverage antibiotics and Obtaining appropriate cultures I spent time reviewing and interpreting data from bedside monitors, laboratory results, and imaging, I spent time discussing the management of this critically ill patient with consultants and the medical staff and I spent time documenting in the medical record us Dom Garcia MD IN CLINIC/BEDSIDE ORDERABLES Fin al Result * Urinalysis reflex to microscopic (12/13/2024 8:39 AM CDT) Color, ur Straw Yellow Clarity, ur Clear Clear [facility] Specific gravity, ur 1.018 1.003 - 1.030 [facility] pH, urine 5.5 [facility] Comment: Interpretive Data U rine pH is affected by diet, medications, systemic acid-base disturbances, and renal tubular function. pH may affect urinary stone formation. For example, urine pH below 6.0 may help reduce the tendency for calcium phosphate stones and pH greater than 6.0 may reduce the tendency for uric acid stone formation. Source: [facility] Current Interpretive Data was last revised on 2017 Protein, ur ql Trace Negative [facility] Glucose, ur ql Negative Negative [facility] Ketones, ur Negative Negative [facility] Bilirubin, ur Negative Negative [facility] Blood, ur Negative Negative [facility] Urobilinogen, ur <2.0 <2.0 mg/dL [facility] Nitrite, ur Negative Negative [facility] Leukocyte esterase, ur Negative Negative [facility] UA reflex comment Reflex conditions for microscopic UA not met. [facility] Urine 12/13/2024 8:39 AM CDT 12/13/2024 9:17 AM CDT Meño Chandra MD LAB URINE ORDERABLES Final Result [facility] [place] [place] [address] * POCT glucose (12/13/2024 8:19 AM CDT) Glucose, POC 102 70 - 199 mg/dL Blood 12/13/2024 8:19 AM CDT 12/13/2024 8:19 AM CDT Meño Chandra MD LAB POCT ORDERABLES - DEVICE Final Result [facility] [place] [place] [address] * Type and screen (12/13/2024 8:13 AM CDT) ABO Rh A Positive Terry, indirect Negative [facility] Blood 12/13/2024 8:13 AM CDT 12/13/2024 8:32 AM CDT Narrative [facility] - 12/13/2024 9:38 AM CDT Has the patient had Daratumumab or Isatuximab in the past 6 months?->Unknown Robert Mas MD LAB BLOOD BANK BRYAN T ORDERABLES Final Result Performing Organization Address City/[facility]/ZIP Co de Phone Number [facility] [place] [address] * POCT glucose (12/13/2024 7:50 AM CDT) Glucose, POC 109 70 - 199 mg/dL Blood 12/13/2024 7:50 AM CDT 12/13/2024 7:50 AM CDT Meño Chandra MD LAB POCT ORDERABLES - DEVICE Final Result Performing Organization Address [facility] Co de Phone Number [facility] Department [place] [address] * XR Chest 1 View (12/13/2024 5:59 AM CDT) Anatomical Region Laterality Modality Body, Chest N/A Computed Radiogr aphy 12/13/2024 11:0 2 AM CDT Impressions 12/13/2024 11:25 AM CDT The current study is compared with the prior radiograph dated 12/12/2024 Median sternotomy plates and screws appear intact. Small lung volumes with associated patchy atelectasis. Confluent right lower lung opacity could be a small pleural effusion versus pneumonia in the correct clinical setting. Possible small left layering pleural effusion. No pneumothorax. Heart and mediastinum enlarged though stable from previous. Dictated by: Prosper Salazar M.D. The radiology attending physician has personally reviewed this study, and had reviewed and/or edited this written report and agrees with it. Electronically signed by: Giovanna Vicente M.D. Narrative 12/13/2024 11:25 AM CDT EXAMINATION: 1 view chest radiograph Procedure Note Giovanna Vicente MD - 12/13/2024 EXAMINATION: 1 view chest radiograph IMPRESSION: The current study is compared with the prior radiograph dated 12/12/2024 Median sternotomy plates and screws appear intact. Small lung volumes with associated patchy atelectasis. Confluent right lower lung opacity could be a small pleural effusion versus pneumonia in the correct clinical setting. Possible small left layering pleural effusion. No pneumothorax. Heart and mediastinum enlarged though stable from previous. Dictated by: Prosper Salazar M.D. The radiology attending physician has personally reviewed this study, and had reviewed and/or edited this written report and agrees with it. Electronically signed by: Giovanna Vicente M.D. Meño Chandra MD IMG XR PROCEDURES Fi nal Result * POCT glucose (12/13/2024 2:07 AM CDT) Pathologist [facility] Glucose, POC 126 70 - 199 mg/dL Blood 12/13/2024 2:07 AM CDT 12/13/2024 2:07 AM CDT Meño Chandra MD LAB POCT ORDERABLES - DEVICE Final Result [facility] Department [place] [address] * (ABNORMAL) eGFR (12/12/2024 9:08 PM CDT) Pathologist [facility] eGFR 39(L) >=60 mL/min/1. 73 m2 Comment: Interpretive Data Reference Interval Normal >/= 90 mL/min/1.73m2 Mildly decreased* 60 - 89 mL/min/1.73m2 Mildly to moderately decreased 45 - 59 mL/min/1.73m2 Moderately to severely decreased 30 - 44 mL/min/1.73m2 Severely decreased 15 - 29 mL/min/1.73m2 Kidney Failure < 15 mL/min/1.73m2 *Relative to young adult level Estimated glomerular filtration rate is determined by the 2020 CKD-EPI equation recommended by the National Kidney Foundation (A Unifying Approach to GFR Estimation: Recommendations of the NKF-ASK Task Force on Reassessing the Inclusion of Race in Diagnosing Kidney Disease, JASN 202). The CKD-EPI equation should not be used for patients with unstable renal function and has not been validated in children and those over 70. Current interpretive data was last reviewed 2021. Blood 12/12/2024 9:08 PM CDT 12/12/2024 9:30 PM CDT Meño Chandra MD LAB BLOOD ORDERABLES Final Result [facility] Department [place] [address] * POCT glucose (12/12/2024 9:08 PM CDT) Glucose, POC 114 70 - 199 mg/dL Blood 12/12/2024 9:08 PM CDT 12/12/2024 9:08 PM CDT Meño Chandra MD LAB POCT ORDERABLES - DEVICE Final Result Performing Organization Address [facility] Co de Phone Number [facility] Department [place] [place] [address] * (ABNORMAL) Protime-INR (12/12/2024 9:08 PM CDT) PT 16.5(H) 9.7 - 13.0 sec INR 1.51(H) 0.90 - 1.20 [facility] Comment: Interpretive data Oral anticoagulant therapeutic ranges: Venous thromboembolism prophylaxis or treatment: 2.0-3.0 CARDIOLOGY Standard range: 2.0-3.0 High-intensity range: 2.5-3.5 Refer to indication-specific guidelines for appropriate target ranges for prosthetic heart valve replacement. Current interpretive data was last revised on 2019. Blood 12/12/2024 9:08 PM CDT 12/12/2024 9:21 PM CDT Meño Chandra MD LAB BLOOD ORDERABLES Final Result Performing Organization Address City/[facility]/ZIP Co de Phone Number [facility] [place] [address] * (ABNORMAL) CBC without differential (12/12/2024 9:08 PM CDT) WBC 19.70(H) 3.80 - 9.90 K/cumm Hgb 8.2(L) 13.0 - 17.5 g/dL [facility] Hct 25.0(L) 38.9 - 50.3 % [facility] Plt 355 150 - 400 K/cumm [facility] MPV 9.3 9.1 - 12.3 fL [facility] RBC 2.65(L) 4.30 - 5.80 M/cumm [facility] MCV 94.3 81.3 - 96.4 fL [facility] MCH 30.9 27.1 - 33.3 pg [facility] MCHC 32.8 32.3 - 35.7 g/dL [facility] RDW CV 14.8 11.1 - 14.9 % [facility] RDW SD 49.6(H) 35.7 - 48.1 fL [facility] NRBC abs 0.02(H) 0.00 - 0.01 K/cumm [facility] Blood 12/12/2024 9:08 PM CDT 12/12/2024 9:19 PM CDT Meño Chandra MD LAB BLOOD ORDERABLES Final Result [facility] Department [place] [address] * Phosphorus (12/12/2024 9:08 PM CDT) Phosphorus, pl 4.1 2.3 - 4.5 mg/dL Blood 12/12/2024 9:08 PM CDT 12/12/2024 9:16 PM CDT Meño Chandra MD LAB BLOOD ORDERABLES Final Result [facility] Department [place] [address] * (ABNORMAL) Magnesium (12/12/2024 9:08 PM CDT) Pathologist [facility] Magnesium 2.6(H) 1.4 - 2.5 mg/dL Blood 12/12/2024 9:08 PM CDT 12/12/2024 9:16 PM CDT Meño Chandra MD LAB BLOOD ORDERABLES Final Result Performing Organization Address [facility] de Phone Number [facility] Department [place] [address] * (ABNORMAL) Basic metabolic panel (12/12/2024 9:08 PM CDT) [facility] Sodium 138 135 - 145 mmol/L Potassium, pl 4.5 3.3 - 4.9 mmol/L [facility] Chloride 105 97 - 110 mmol/L [facility] CO2 24 22 - 32 mmol/L [facility] Anion gap 9 2 - 15 mmol/L [facility] BUN 50(H) 6 - 25 mg/dL [facility] Creatinine 1.76(H) 0.80 - 1.30 mg/dL [facility] Glucose 114 70 - 199 mg/dL [facility] Comment: Interpretive Data Fasting glucose >/= 126 mg/dl is diagnostic for diabetes. Fasting is defined as no caloric intake for at least 8 hours. Fasting glucose between 100 mg/dl to 125 mg/dl is diagnostic of prediabetes. In a patient with classic symptoms of hyperglycemia or hyperglycemic crisis, a random glucose >/= 200 mg/dl is diagnostic for diabetes. In the absence of unequivocal hyperglycemia, results should be confirmed by repeat testing. The classification and Diagnosis of Diabetes Diabetes Care 2021; 46: S19-S40. Current interpretive data was last revised 2022. Calcium 8.2(L) 8.5 - 10.3 mg/dL [facility] Blood 12/12/2024 9:08 PM CDT 12/12/2024 9:16 PM CDT Meño Chandra MD LAB BLOOD ORDERABLES Final Result Performing Organization Address City/[facility]/ZIP Co de Phone Number [facility] Department [place] [place] [address] * POCT glucose (12/12/2024 6:45 PM CDT) Glucose, POC 95 70 - 199 mg/dL Blood 12/12/2024 6:45 PM CDT 12/12/2024 6:45 PM CDT Meño Chandra MD LAB POCT ORDERABLES - DEVICE Final Result Performing Organization Address [facility] Co de Phone Number [facility] [place] [place] [address] * (ABNORMAL) POCT glucose (12/12/2024 5:18 PM CDT) Glucose, POC 63(L) 70 - 199 mg/dL Blood 12/12/2024 5:18 PM CDT 12/12/2024 5:18 PM CDT Meño Chandra MD LAB POCT ORDERABLES - DEVICE Final Result Performing Organization Address City[facility] Co de Phone Number [facility] [place] [address] * (ABNORMAL) POCT glucose (12/12/2024 5:16 PM CDT) Glucose, POC 64(L) 70 - 199 mg/dL Blood 12/12/2024 5:16 PM CDT 12/12/2024 5:16 PM CDT Meño Chandra MD LAB POCT ORDERABLES - DEVICE Final Result Performing Organization Address [facility] Co de Phone Number [facility] [place] [address] * POCT glucose (12/12/2024 12:07 PM CDT) [facility] Glucose, POC 198 70 - 199 mg/dL Blood 12/12/2024 12:0 7 PM CDT 12/12/2024 12:07 PM CDT Meño Chandra MD LAB POCT ORDERABLES - DEVICE Final Result Performing Organization Address [facility] de Phone Number [facility] Department [place] [address] * XR Chest 1 View (12/12/2024 10:11 AM CDT) Anatomical Region Laterality Modality Body, Chest N/A Digital Radiogra phy 12/12/2024 11:2 9 AM CDT Impressions 12/12/2024 1:31 PM CDT The current study is compared with the prior radiograph dated 12/10/2024. Median sternotomy plates and screws. Mild bibasilar atelectasis left greater than right, no pleural effusion, no pneumothorax. Cardiomediastinal silhouette is unchanged. Dictated by: Taniya Maloney M.D. The radiology attending physician has personally reviewed this study, and had reviewed and/or edited this written report and agrees with it. Electronically signed by: Yuriy Page M.D. Narrative 12/12/2024 1:31 PM CDT EXAMINATION: 1 view chest radiograph Procedure Note Yuriy Page MD - 12/12/2024 EXAMINATION: 1 view chest radiograph IMPRESSION: The current study is compared with the prior radiograph dated 12/10/2024. Median sternotomy plates and screws. Mild bibasilar atelectasis left greater than right, no pleural effusion, no pneumothorax. Cardiomediastinal silhouette is unchanged. Dictated by: Taniya Maloney M.D. The radiology attending physician has personally reviewed this study, and had reviewed and/or edited this written report and agrees with it. Electronically signed by: Yuriy Page M.D. Meño Chandra MD IMG XR PROCEDURES Fi nal Result * (ABNORMAL) POCT glucose (12/12/2024 8:55 AM CDT) Glucose, POC 207(H) 70 - 199 mg/dL Blood 12/12/2024 8:55 AM CDT 12/12/2024 8:55 AM CDT Meño Chandra MD LAB POCT ORDERABLES - DEVICE Final Result [facility] Department [place] [address] * Critical Care (12/12/2024 8:48 AM CDT) Narrative Dom Garcia MD - 12/12/2024 8:48 AM CDT Dom Garcia MD 12/12/2024 1:53 PM Critical Care Performed by: Dom Garcia MD Authorized by: Dom Garcia MD CRITICAL CARE: Team: 83 CTICU Shift: AM Level of Billing: Subsequent Hospital Visit Level 2 My time spent with this patient was 35 minutes: Critical Provider Statement: I have seen and examined the patient on this day of service. I have reviewed and confirmed the history, physical exam, laboratory, and radiographic data as documented in the ICU note. I have reviewed and discussed my treatment plan with the patient's team and other medical/home service consultant staff. This time was in addition to and separate from care provided by other practitioners on this day of service. Acute pain/acute postoperative pain Atrial fibrillation with rapid ventricular rate Insomnia Acute kidney injury This time was spent by me doing the following: Active titration of continuous sedation Initiation/active titration of anti-arrhythmic or rate controlling agent Incentive spirometry, pulmonary toilet Active diuresis I spent time reviewing and interpreting data from bedside monitors, laboratory results, and imaging, I spent time discussing the management of this critically ill patient with consultants and the medical staff and I spent time documenting in the medical record us Dom Garcia MD IN CLINIC/BEDSIDE ORDERABLES Fin al Result * Infection Prevention Jeramie auris PCR, surveillance Axilla/Groin (12/12/2024 5:39 AM CDT) Jeramie auris DNA Not Detected Not Detected [facility] Comment: Interpretive Data Testing performed by [facility] Molecular Infectious Disease [facility] using the Matt marie 6800 Jeramie auris assay. This assay detects DNA from Jeramie auris using Real-Time PCR. This assay is laboratory developed and is not cleared by the [facility] Food and Drug Administration. The performance characteristics have been verified by the [facility] Infectious Disease [facility]. Axilla/Groin 12/12/2024 5:39 AM CDT 12/12/2024 7:21 AM CDT Narrative WANDA [facility] - 12/12/2024 2:55 PM CDT Order placed by [facility] due to ring surveillance. us Instant Order Generic Provider LAB MICROBIOLOGY - GENERAL ORDERABLES Final Result Performing Organization Address City/[facility]/ZIP Co de Phone Number [facility] Department [place] [place] [address] [facility] * POCT glucose (12/12/2024 5:14 AM CDT) Pathologist [facility] Glucose, POC 92 70 - 199 mg/dL Blood 12/12/2024 5:14 AM CDT 12/12/2024 5:14 AM CDT us Meño Chandra MD LAB POCT ORDERABLES - DEVICE Final Result Performing Organization Address City/[facility]/ZIP Co de Phone Number [facility] [place] [address] * POCT glucose (12/12/2024 4:12 AM CDT) Glucose, POC 97 70 - 199 mg/dL Blood 12/12/2024 4:12 AM CDT 12/12/2024 4:12 AM CDT Meño Chandra MD LAB POCT ORDERABLES - DEVICE Final Result Performing Organization Address City/[facility] [place] [address] * POCT glucose (12/12/2024 3:45 AM CDT) Glucose, POC 72 70 - 199 mg/dL Blood 12/12/2024 3:45 AM CDT 12/12/2024 3:45 AM CDT Meño Chandra MD LAB POCT ORDERABLES - DEVICE Final Result Performing Organization Address [facility] [place] [address] * (ABNORMAL) POCT glucose (12/12/2024 3:27 AM CDT) Glucose, POC 64(L) 70 - 199 mg/dL Blood 12/12/2024 3:27 AM CDT 12/12/2024 3:27 AM CDT Meño Chandra MD LAB POCT ORDERABLES - DEVICE Final Result Performing Organization Address City/[facility] [place] [address] * POCT glucose (12/11/2024 8:42 PM CDT) Glucose, POC 118 70 - 199 mg/dL Blood 12/11/2024 8:42 PM CDT 12/11/2024 8:42 PM CDT Meño Chandra MD LAB POCT ORDERABLES - DEVICE Final Result Performing Organization Address City/[facility]/ZIP Co de Phone Number [facility] [place] [address] * (ABNORMAL) eGFR (12/11/2024 8:38 PM CDT) eGFR 38(L) >=60 mL/min/1. 73 m2 Comment: Interpretive Data Reference Interval Normal >/= 90 mL/min/1.73m2 Mildly decreased* 60 - 89 mL/min/1.73m2 Mildly to moderately decreased 45 - 59 mL/min/1.73m2 Moderately to severely decreased 30 - 44 mL/min/1.73m2 Severely decreased 15 - 29 mL/min/1.73m2 Kidney Failure < 15 mL/min/1.73m2 *Relative to young adult level Estimated glomerular filtration rate is determined by the 2020 CKD-EPI equation recommended by the National Kidney Foundation (A Unifying Approach to GFR Estimation: Recommendations of the NKF-ASK Task Force on Reassessing the Inclusion of Race in Diagnosing Kidney Disease, JASN 2020). The CKD-EPI equation should not be used for patients with unstable renal function and has not been validated in children and those over 70. Current interpretive data was last reviewed 2021. Blood 12/11/2024 8:38 PM CDT 12/11/2024 9:01 PM CDT Meño Chandra MD LAB BLOOD ORDERABLES Final Result [facility] [place] [address] * (ABNORMAL) Protime-INR (12/11/2024 8:38 PM CDT) PT 16.2(H) 9.7 - 13.0 sec INR 1.49(H) 0.90 - 1.20 [facility] Comment: Interpretive data Oral anticoagulant therapeutic ranges: Venous thromboembolism prophylaxis or treatment: 2.0-3.0 CARDIOLOGY Standard range: 2.0-3.0 High-intensity range: 2.5-3.5 Refer to indication-specific guidelines for appropriate target ranges for prosthetic heart valve replacement. Current interpretive data was last revised on 2019. Blood 12/11/2024 8:38 PM CDT 12/11/2024 8:55 PM CDT us Meño Chandra MD LAB BLOOD ORDERABLES Final Result [facility] Department [place] [address] * (ABNORMAL) CBC without differential (12/11/2024 8:38 PM CDT) WBC 15.57(H) 3.80 - 9.90 K/cumm Hgb 8.1(L) 13.0 - 17.5 g/dL [facility] Hct 25.5(L) 38.9 - 50.3 % [facility] Plt 352 150 - 400 K/cumm [facility] MPV 9.4 9.1 - 12.3 fL [facility] RBC 2.70(L) 4.30 - 5.80 M/cumm [facility] MCV 94.4 81.3 - 96.4 fL [facility] MCH 30.0 27.1 - 33.3 pg [facility] MCHC 31.8(L) 32.3 - 35.7 g/dL [facility] RDW CV 14.7 11.1 - 14.9 % [facility] RDW SD 48.9(H) 35.7 - 48.1 fL [facility] NRBC abs 0.03(H) 0.00 - 0.01 K/cumm [facility] Blood 12/11/2024 8:38 PM CDT 12/11/2024 9:02 PM CDT Meño Chandra MD LAB BLOOD ORDERABLES Final Result [facility] [place] [address] * Phosphorus (12/11/2024 8:38 PM CDT) [facility] Phosphorus, pl 3.8 2.3 - 4.5 mg/dL Blood 12/11/2024 8:38 PM CDT 12/11/2024 8:56 PM CDT Meño Chandra MD LAB BLOOD ORDERABLES Final Result Performing Organization Address [facility] Co de Phone Number [facility] [place] [address] * (ABNORMAL) Magnesium (12/11/2024 8:38 PM CDT) [facility] Magnesium 2.6(H) 1.4 - 2.5 mg/dL Blood 12/11/2024 8:38 PM CDT 12/11/2024 8:56 PM CDT Meño Chandra MD LAB BLOOD ORDERABLES Final Result Performing Organization Address [facility] Co de Phone Number [facility] [place] [address] * (ABNORMAL) Basic metabolic panel (12/11/2024 8:38 PM CDT) [facility] Sodium 137 135 - 145 mmol/L Potassium, pl 4.6 3.3 - 4.9 mmol/L [facility] Chloride 104 97 - 110 mmol/L [facility] CO2 25 22 - 32 mmol/L [facility] Anion gap 8 2 - 15 mmol/L [facility] BUN 50(H) 6 - 25 mg/dL [facility] Creatinine 1.81(H) 0.80 - 1.30 mg/dL [facility] Glucose 113 70 - 199 mg/dL [facility] Comment: Interpretive Data Fasting glucose >/= 126 mg/dl is diagnostic for diabetes. Fasting is defined as no caloric intake for at least 8 hours. Fasting glucose between 100 mg/dl to 125 mg/dl is diagnostic of prediabetes. In a patient with classic symptoms of hyperglycemia or hyperglycemic crisis, a random glucose >/= 200 mg/dl is diagnostic for diabetes. In the absence of unequivocal hyperglycemia, results should be confirmed by repeat testing. The classification and Diagnosis of Diabetes Diabetes Care 2021; 46: S19-S40. Current interpretive data was last revised 2022. Calcium 7.5(L) 8.5 - 10.3 mg/dL [facility] Blood 12/11/2024 8:38 PM CDT 12/11/2024 8:56 PM CDT Meño Chandra MD LAB BLOOD ORDERABLES Final Result Performing Organization Address City/[facility]/ZIP Co de Phone Number [facility] Department [place] [address] * (ABNORMAL) POCT glucose (12/11/2024 5:06 PM CDT) Glucose, POC 305(H) 70 - 199 mg/dL Blood 12/11/2024 5:06 PM CDT 12/11/2024 5:06 PM CDT Meño Chandra MD LAB POCT ORDERABLES - DEVICE Final Result [facility] Department [place] [address] * (ABNORMAL) POCT glucose (12/11/2024 11:52 AM CDT) Glucose, POC 348(H) 70 - 199 mg/dL Blood 12/11/2024 11:5 2 AM CDT 12/11/2024 11:52 AM CDT us Meño Chandra MD LAB POCT ORDERABLES - DEVICE Final Result [facility] Department [place] [address] * Critical Care (12/11/2024 8:51 AM CDT) Narrative Dom Garcia MD - 12/11/2024 8:51 AM CDT Dom Garcia MD 12/11/2024 3:16 PM Critical Care Performed by: Dom Garcia MD Authorized by: Dom Garcia MD CRITICAL CARE: Team: 83 CTICU Shift: AM Level of Billing: Critical Care My time spent with this patient was 35 minutes: Critical Provider Statement: I have seen and examined the patient on this day of service. I have reviewed and confirmed the history, physical exam, laboratory and radiologic data as documented in the signed ICU note. I have reviewed and discussed my treatment plan with the ICU team and other medical/home service consultant staff, making frequent assessments and decisions regarding this patient's complex medical care. Critical Care time was exclusive of time spent performing separately billed procedures, treating other patients, and teaching. This time was in addition to and separate from critical care provided by other practitioners in my group on this day of service. Critical Care was necessary to treat or prevent imminent or life-threatening deterioration of the following conditions: Atrial fibrillation with rapid ventricular rate Pulmonary edema Acute kidney injury This time was spent by me doing the following: Initiation/active titration of anti-arrhythmic or rate controlling agent Incentive spirometry, pulmonary toilet Active diuresis I spent time reviewing and interpreting data from bedside monitors, laboratory results, and imaging, I spent time discussing the management of this critically ill patient with consultants and the medical staff and I spent time documenting in the medical record us Dom Garcia MD IN CLINIC/BEDSIDE ORDERABLES Fin al Result * POCT glucose (12/11/2024 8:29 AM CDT) Glucose, POC 148 70 - 199 mg/dL Blood 12/11/2024 8:29 AM CDT 12/11/2024 8:29 AM CDT Meño Chandra MD LAB POCT ORDERABLES - DEVICE Final Result [facility] [place] [address] * POCT glucose (12/11/2024 1:47 AM CDT) Glucose, POC 108 70 - 199 mg/dL Blood 12/11/2024 1:47 AM CDT 12/11/2024 1:47 AM CDT Meño Chandra MD LAB POCT ORDERABLES - DEVICE Final Result Performing Organization Address [facility] Co de Phone Number [facility] [place] [address] * (ABNORMAL) eGFR (12/10/2024 8:09 PM CDT) eGFR 43(L) >=60 mL/min/1. 73 m2 Comment: Interpretive Data Reference Interval Normal >/= 90 mL/min/1.73m2 Mildly decreased* 60 - 89 mL/min/1.73m2 Mildly to moderately decreased 45 - 59 mL/min/1.73m2 Moderately to severely decreased 30 - 44 mL/min/1.73m2 Severely decreased 15 - 29 mL/min/1.73m2 Kidney Failure < 15 mL/min/1.73m2 *Relative to young adult level Estimated glomerular filtration rate is determined by the 2020 CKD-EPI equation recommended by the National Kidney Foundation (A Unifying Approach to GFR Estimation: Recommendations of the NKF-ASK Task Force on Reassessing the Inclusion of Race in Diagnosing Kidney Disease, JASN 202). The CKD-EPI equation should not be used for patients with unstable renal function and has not been validated in children and those over 70. Current interpretive data was last reviewed 2021. Blood 12/10/2024 8:09 PM CDT 12/10/2024 8:27 PM CDT Meño Chandra MD LAB BLOOD ORDERABLES Final Result Performing Organization Address [facility]/ZIP Co de Phone Number [facility] [place] [address] * (ABNORMAL) Protime-INR (12/10/2024 8:09 PM CDT) Pathologist [facility] PT 16.4(H) 9.7 - 13.0 sec INR 1.51(H) 0.90 - 1.20 [facility] Comment: Interpretive data Oral anticoagulant therapeutic ranges: Venous thromboembolism prophylaxis or treatment: 2.0-3.0 CARDIOLOGY Standard range: 2.0-3.0 High-intensity range: 2.5-3.5 Refer to indication-specific guidelines for appropriate target ranges for prosthetic heart valve replacement. Current interpretive data was last revised on 2019. Blood 12/10/2024 8:09 PM CDT 12/10/2024 8:24 PM CDT Meño Chandra MD LAB BLOOD ORDERABLES Final Result Performing Organization Address [facility] Co de Phone Number [facility] [place] [address] * (ABNORMAL) CBC without differential (12/10/2024 8:09 PM CDT) WBC 15.10(H) 3.80 - 9.90 K/cumm Hgb 7.8(L) 13.0 - 17.5 g/dL [facility] Hct 23.3(L) 38.9 - 50.3 % [facility] Plt 303 150 - 400 K/cumm [facility] MPV 9.6 9.1 - 12.3 fL [facility] RBC 2.46(L) 4.30 - 5.80 M/cumm [facility] MCV 94.7 81.3 - 96.4 fL [facility] MCH 31.7 27.1 - 33.3 pg [facility] MCHC 33.5 32.3 - 35.7 g/dL [facility] RDW CV 14.8 11.1 - 14.9 % [facility] RDW SD 49.7(H) 35.7 - 48.1 fL [facility] NRBC abs 0.02(H) 0.00 - 0.01 K/cumm [facility] Blood 12/10/2024 8:09 PM CDT 12/10/2024 8:23 PM CDT Meño Chandra MD LAB BLOOD ORDERABLES Final Result Performing Organization Address City/[facility]/ZIP Co de Phone Number [facility] [place] [address] * Type and screen (12/10/2024 8:09 PM CDT) Pathologist [facility] Terry, indirect Negative ABO Rh A Positive [facility] Blood 12/10/2024 8:09 PM CDT 12/10/2024 8:22 PM CDT Narrative [facility] - 12/10/2024 9:17 PM CDT Has the patient had Daratumumab or Isatuximab in the past 6 months?->Unknown Result [facility] Meño Chandra MD LAB BLOOD BANK TEST ORDERABLES Final Result Performing Organization Address [facility] Co de Phone Number [facility] [place] [place] [address] * Phosphorus (12/10/2024 8:09 PM CDT) Pathologist [facility] Phosphorus, pl 4.3 2.3 - 4.5 mg/dL Blood 12/10/2024 8:09 PM CDT 12/10/2024 8:18 PM CDT Meño Chandra MD LAB BLOOD ORDERABLES Final Result Performing Organization Address City/[facility]/ZIP Co de Phone Number [facility] [place] [place] [address] * Magnesium (12/10/2024 8:09 PM CDT) Magnesium 2.5 1.4 - 2.5 mg/dL Blood 12/10/2024 8:09 PM CDT 12/10/2024 8:18 PM CDT Meño Chandra MD LAB BLOOD ORDERABLES Final Result [facility] Department [place] [address] * (ABNORMAL) Basic metabolic panel (12/10/2024 8:09 PM CDT) Pathologist [facility] Sodium 141 135 - 145 mmol/L Potassium, pl 4.3 3.3 - 4.9 mmol/L [facility] Chloride 107 97 - 110 mmol/L [facility] CO2 24 22 - 32 mmol/L [facility] Anion gap 10 2 - 15 mmol/L [facility] BUN 47(H) 6 - 25 mg/dL [facility] Creatinine 1.62(H) 0.80 - 1.30 mg/dL [facility] Glucose 83 70 - 199 mg/dL [facility] Comment: Interpretive Data Fasting glucose >/= 126 mg/dl is diagnostic for diabetes. Fasting is defined as no caloric intake for at least 8 hours. Fasting glucose between 100 mg/dl to 125 mg/dl is diagnostic of prediabetes. In a patient with classic symptoms of hyperglycemia or hyperglycemic crisis, a random glucose >/= 200 mg/dl is diagnostic for diabetes. In the absence of unequivocal hyperglycemia, results should be confirmed by repeat testing. The classification and Diagnosis of Diabetes Diabetes Care 2021; 46: S19-S40. Current interpretive data was last revised 2022. Calcium 8.1(L) 8.5 - 10.3 mg/dL [facility] Blood 12/10/2024 8:09 PM CDT 12/10/2024 8:18 PM CDT Meño Chandra MD LAB BLOOD ORDERABLES Final Result [facility] Department [place] [address] * POCT glucose (12/10/2024 8:07 PM CDT) Glucose, POC 95 70 - 199 mg/dL Blood 12/10/2024 8:07 PM CDT 12/10/2024 8:07 PM CDT us Meño Chandra MD LAB POCT ORDERABLES - DEVICE Final Result Performing Organization Address [facility] Co de Phone Number [facility] RODRIGUES [facility] Department [place] [address] * XR Chest 1 View (12/10/2024 6:49 PM CDT) Anatomical Region Laterality Modality Body, Chest N/A Digital Radiogra phy 12/10/2024 7:15 PM CDT Impressions 12/10/2024 7:15 PM CDT There has been interval removal of right internal jugular central venous catheter. Sternal plates remain aligned. The lung volumes remain small with moderate bibasilar atelectasis, and with unchanged small bilateral pleural effusions. No pneumothorax is identified. The cardiomediastinal silhouette is unchanged.. Electronically signed by: Earl Perez M.D. Narrative 12/10/2024 7:15 PM CDT EXAMINATION: XR CHEST 1 VIEW COMPARISON: 12/09/2024 8:01 PM Procedure Note Earl Perez MD PhD - 12/10/2024 EXAMINATION: XR CHEST 1 VIEW COMPARISON: 12/09/2024 8:01 PM IMPRESSION: There has been interval removal of right internal jugular central venous catheter. Sternal plates remain aligned. The lung volumes remain small with moderate bibasilar atelectasis, and with unchanged small bilateral pleural effusions. No pneumothorax is identified. The cardiomediastinal silhouette is unchanged.. Electronically signed by: Earl Perez M.D. us Scar Pastor MD IMG XR PROCEDURES Final Re sult * POCT glucose (12/10/2024 5:04 PM CDT) Glucose, POC 128 70 - 199 mg/dL Blood 12/10/2024 5:04 PM CDT 12/10/2024 5:04 PM CDT us Meño Chandra MD LAB POCT ORDERABLES - DEVICE Final Result [facility] Department [place] [address] * TRANSTHORACIC ECHO (TTE) COMPLETE W DOPPLER/CF W CONTRAST (12/10/2024 3:53 PM CDT) Anatomical Region Laterality Modality Ultrasound 12/10/2024 2:28 PM CDT Narrative 12/10/2024 6:08 PM CDT [facility] [place] [address] Transthoracic Echocardiographic Report Patient Name: JAI MEIER W : 1945 (79y 4m) Gender: M Study Date: 12/10/2024 02:28:47 PM Ht(Inch): 70 Wt(Lb): 307.98 BSA: 2.63 Director Medical Writing: Елена Mnoge RDCS Location: [id number] Order Provider: MEÑO CHANDRA BMI: 44.19 BP: 127 / 91 Ref Provider: MEÑO CHANDRA - PROCEDURES: Echocardiographic Report: Transthoracic complete echo with contrast, 2D, spectral and tissue Doppler, color flow Doppler, M-mode. Contrast: Contrast Enhancement was Employed: Due to suboptimal image quality with inadequate visualization of at least 2 of 16 LV wall segments in any view after initial imaging. Perflutren contrast was administered using the volume necessary to obtain adequate images. 1.1 ml Optison Administered, (1.9 ml wasted). Technically difficult study due to: Poor acoustic windows. INDICATIONS: Atrial fibrillation/flutter (AF) - CONCLUSIONS: 1. Normal left ventricular size based on volume index. Normal left ventricular systolic function. Left ventricular diastolic function is indeterminate due to the presence of atrial fibrillation during the study. The LV global strain is: -10.6 %. Unable to assess global longitudinal strain due to image quality. 2. Normal right ventricular size. Mild right ventricular hypokinesis. 3. No aortic regurgitation. The mean transaortic gradient is 11 mmHg. The aortic valve area by the continuity equation (using VTI) is 1.49 cm2. Aortic valve dimensionless index is 0.48. 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 ATTESTATION: I have personally reviewed and interpreted this study without fellow or resident. - DISCLAIMER: The study images and the final report will be retained in the patient chart by the [facility] Laboratory for the legally required time period. This chart constitutes the legal record of any testing performed. FINDINGS: Left Ventricle: Normal left ventricular size based on volume index. Normal left ventricular systolic function. Left ventricular diastolic function is indeterminate due to the presence of atrial fibrillation during the study. The LV global strain is: -10.6 %. Unable to assess global longitudinal strain due to image quality. Right Ventricle: Normal right ventricular size. Mild right ventricular hypokinesis. Left Atrium: The left atrium is normal in size. Right Atrium: The right atrium is not well visualized due to poor acoustic windows. Mitral Valve: Mitral valve leaflets appear mildly thickened. Aortic Valve: No aortic regurgitation. The mean transaortic gradient is 11 mmHg. The aortic valve area by the continuity equation (using VTI) is 1.49 cm2. Aortic valve dimensionless index is 0.48. 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 Tricuspid Valve: Mild tricuspid regurgitation. Pulmonic Valve: The pulmonic valve is not well visualized due to poor acoustic windows. Pericardium: Normal pericardium without pericardial effusion. Aorta: Aorta not well visualized due to poor acoustic windows. MEASUREMENTS: 2D/MM Value Range Doppler Value Range LV GLS -10.6 % [ -25.0 - -18.0 ] AV Peak Gregor 2.1 m/s [ 1.0 - 1.7 ] LA Length 4C 6.22 cm AV Peak PG 17.64 mmHg LA Length 2C 6.61 cm AV Mean PG 11 mmHg LA Volume BP 73.82 ml AV VTI 31.0 cm LA Volume Index 28.07 ml/m2 [ 16.00 - 34.00 ] LVOT Peak Gregor 1.0 m/s [ 0.7 - 1.1 ] TAPSE 0.51 cm [ 1.71 - 5.00 ] LVOT Peak PG 4.00 mmHg LVOT Mean PG 3 mmHg LVOT VTI 15.0 cm LVOT Diam 1.98 cm SUNDEEP VTI 1.49 cm2 LVOT/AV VTI 0.48 - Dimensionless index (DVI) MV E Peak Gregor 1.1 m/s [ 0.6 - 1.3 ] MV A Peak Gregor 0.8 m/s [ 1.0 - 1.2 ] MV E/A 1.3 ratio [ 0.8 - 1.5 ] MV Decel Time 288.73 msec [ 104.00 - 258.00 ] Med E` Gregor 4.1 cm/sec [ 8.0 - 25.0 ] Lat E` Gregor 5.7 cm/sec [ 10.0 - 25.0 ] Average E/E` 22.45 RV S` 3.68 cm/sec PV Peak Gregor 0.8 m/s [ 0.4 - 0.8 ] PV Peak PG 2.56 mmHg Electronically Signed By: Severo Carlin MD 12/10/2024 6:07:46 PM CDT Procedure Note Severo Carlin MD - 12/10/2024 [facility] [place] [place] [address] Transthoracic Echocardiographic Report Patient Name: JAI MEIER W : 1945 (79y 4m) Gender: M Study Date: 12/10/2024 02:28:47 PM Ht(Inch): 70 Wt(Lb): 307.98 BSA: 2.63 Director Medical Writing: Елена Monge RDCS Location: [id number] Order Provider:MEÑO CHANDRA BMI: 44.19 BP: 127 / 91 Ref Provider: MEÑO CHANDRA - PROCEDURES: Echocardiographic Report: Transthoracic complete echo with contrast, 2D,spectral and tissue Doppler, color flow Doppler, M-mode. Contrast: Contrast Enhancement was Employed: Due to suboptimal imagequality with inadequate visualization of at least 2 of 16 LV wall segments in any viewafter initial imaging. Perflutren contrast was administered using the volume necessaryto obtain adequate images. 1.1 ml Optison Administered, (1.9 ml wasted). Technically difficult study due to: Poor acoustic windows. INDICATIONS: Atrial fibrillation/flutter (AF) - CONCLUSIONS: 1. Normal left ventricular size based on volume index. Normal leftventricular systolic function. Left ventricular diastolic function is indeterminate due to thepresence of atrial fibrillation during the study. The LV global strain is: -10.6 %.Unable to assess global longitudinal strain due to image quality. 2. Normal right ventricular size. Mild right ventricular hypokinesis. 3. No aortic regurgitation. The mean transaortic gradient is 11 mmHg. Theaortic valve area by the continuity equation (using VTI) is 1.49 cm2. Aortic valvedimensionless index is 0.48. 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 ATTESTATION: I have personally reviewed and interpreted this study without fellow orresident. - DISCLAIMER: The study images and the final report will be retained in the patientchart by the Echo Laboratory for the legally required time period. This chart constitutesthe legal record of any testing performed. FINDINGS: Left Ventricle: Normal left ventricular size based on volume index. Normalleft ventricular systolic function. Left ventricular diastolic function isindeterminate due to the presence of atrial fibrillation during the study. The LV globalstrain is: -10.6 %. Unable to assess global longitudinal strain due to image quality. Right Ventricle: Normal right ventricular size. Mild right ventricularhypokinesis. Left Atrium: The left atrium is normal in size. Right Atrium: The right atrium is not well visualized due to poor acousticwindows. Mitral Valve: Mitral valve leaflets appear mildly thickened. Aortic Valve: No aortic regurgitation. The mean transaortic gradient is 11mmHg. The aortic valve area by the continuity equation (using VTI) is 1.49 cm2.Aortic valve dimensionless index is 0.48. A bioprosthetic valve is present in theaortic position. Tricuspid Valve: Mild tricuspid regurgitation. Pulmonic Valve: The pulmonic valve is not well visualized due to pooracoustic windows. Pericardium: Normal pericardium without pericardial effusion. Aorta: Aorta not well visualized due to poor acoustic windows. MEASUREMENTS: 2D/MM Value Range DopplerValue Range LV GLS -10.6 % [ -25.0 - -18.0 ] AV Peak Vel2.1 m/s [ 1.0 - 1.7 ] LA Length 4C 6.22 cm AV Peak PG17.64 mmHg LA Length 2C 6.61 cm AV Mean PG 11mmHg LA Volume BP 73.82 ml AV VTI31.0 cm LA Volume Index 28.07 ml/m2 [ 16.00 - 34.00 ] LVOT Peak Vel1.0 m/s [ 0.7 - 1.1 ] TAPSE 0.51 cm [ 1.71 - 5.00 ] LVOT Peak PG4.00 mmHg LVOT Mean PG 3 mmHg LVOT VTI 15.0 cm LVOT Diam 1.98 cm SUNDEEP VTI 1.49 cm2 LVOT/AV VTI 0.48 - Dimensionless index (DVI) MV E Peak Gregor 1.1 m/s [ 0.6 - 1.3 ] MV A Peak Gregor 0.8 m/s [ 1.0 - 1.2 ] MV E/A 1.3 ratio [ 0.8 - 1.5 ] MV Decel Time 288.73 msec [ 104.00 - 258.00 ] Med E` Gregor 4.1 cm/sec [ 8.0 - 25.0 ] Lat E` Gregor 5.7 cm/sec [ 10.0 - 25.0 ] Average E/E` 22.45 RV S` 3.68 cm/sec PV Peak Gregor 0.8 m/s [ 0.4 - 0.8 ] PV Peak PG 2.56 mmHg Electronically Signed By: Severo Carlin MD 12/10/2024 6:07:46 PM CDT Meño Chandra MD CV ECHO PROCEDURES F inal Result * (ABNORMAL) POCT glucose (12/10/2024 11:38 AM CDT) Glucose, POC 240(H) 70 - 199 mg/dL Blood 12/10/2024 11:3 8 AM CDT 12/10/2024 11:38 AM CDT Meño Chandra MD LAB POCT ORDERABLES - DEVICE Final Result [facility] Department [place] [address] * (ABNORMAL) POCT glucose (12/10/2024 9:09 AM CDT) Glucose, POC 222(H) 70 - 199 mg/dL Blood 12/10/2024 9:09 AM CDT 12/10/2024 9:09 AM CDT Meño Chandra MD LAB POCT ORDERABLES - DEVICE Final Result [facility] Department [place] [address] * Critical Care (12/10/2024 8:59 AM CDT) Narrative Dom Garcia MD - 12/10/2024 8:59 AM CDT Dom Garcia MD 12/10/2024 1:57 PM Critical Care Performed by: Dom Garcia MD Authorized by: Dom Garcia MD CRITICAL CARE: Team: 83 CTICU Shift: AM Level of Billing: Critical Care My time spent with this patient was 40 minutes: Critical Provider Statement: I have seen and examined the patient on this day of service. I have reviewed and confirmed the history, physical exam, laboratory and radiologic data as documented in the signed ICU note. I have reviewed and discussed my treatment plan with the ICU team and other medical/home service consultant staff, making frequent assessments and decisions regarding this patient's complex medical care. Critical Care time was exclusive of time spent performing separately billed procedures, treating other patients, and teaching. This time was in addition to and separate from critical care provided by other practitioners in my group on this day of service. Critical Care was necessary to treat or prevent imminent or life-threatening deterioration of the following conditions: Acute pain/acute postoperative pain Atrial fibrillation with rapid ventricular rate Acute respiratory insufficiency and Atelectasis Acute kidney injury and Hypo- or Hyperglycemia This time was spent by me doing the following: Acute pain control Initiation/active titration of anti-arrhythmic or rate controlling agent Incentive spirometry, pulmonary toilet Glycemic control Active diuresis I spent time reviewing and interpreting data from bedside monitors, laboratory results, and imaging, I spent time discussing the management of this critically ill patient with consultants and the medical staff and I spent time documenting in the medical record us Dom Garcia MD IN CLINIC/BEDSIDE ORDERABLES Fin al Result * (ABNORMAL) POCT glucose (12/10/2024 7:39 AM CDT) Glucose, POC 228(H) 70 - 199 mg/dL Blood 12/10/2024 7:39 AM CDT 12/10/2024 7:39 AM CDT Meño Chandra MD LAB POCT ORDERABLES - DEVICE Final Result [facility] [place] [address] * POCT glucose (12/10/2024 2:24 AM CDT) Glucose, POC 163 70 - 199 mg/dL Blood 12/10/2024 2:24 AM CDT 12/10/2024 2:24 AM CDT Meño Chandra MD LAB POCT ORDERABLES - DEVICE Final Result Performing Organization Address [facility] Co de Phone Number [facility] [place] [address] * (ABNORMAL) eGFR (12/09/2024 11:23 PM CDT) eGFR 45(L) >=60 mL/min/1. 73 m2 Comment: Interpretive Data Reference Interval Normal >/= 90 mL/min/1.73m2 Mildly decreased* 60 - 89 mL/min/1.73m2 Mildly to moderately decreased 45 - 59 mL/min/1.73m2 Moderately to severely decreased 30 - 44 mL/min/1.73m2 Severely decreased 15 - 29 mL/min/1.73m2 Kidney Failure < 15 mL/min/1.73m2 *Relative to young adult level Estimated glomerular filtration rate is determined by the 2020 CKD-EPI equation recommended by the National Kidney Foundation (A Unifying Approach to GFR Estimation: Recommendations of the NKF-ASK Task Force on Reassessing the Inclusion of Race in Diagnosing Kidney Disease, JASN 2020). The CKD-EPI equation should not be used for patients with unstable renal function and has not been validated in children and those over 70. Current interpretive data was last reviewed 2021. Blood 12/09/2024 11:2 3 PM CDT 12/10/2024 12:22 AM CDT Meño Chandra MD LAB BLOOD ORDERABLES Final Result Performing Organization Address [facility] Co de Phone Number [facility] Department [place] [address] * (ABNORMAL) Protime-INR (12/09/2024 11:23 PM CDT) [facility] PT 14.8(H) 9.7 - 13.0 sec INR 1.36(H) 0.90 - 1.20 [facility] Comment: Interpretive data Oral anticoagulant therapeutic ranges: Venous thromboembolism prophylaxis or treatment: 2.0-3.0 CARDIOLOGY Standard range: 2.0-3.0 High-intensity range: 2.5-3.5 Refer to indication-specific guidelines for appropriate target ranges for prosthetic heart valve replacement. Current interpretive data was last revised on 2019. Blood 12/09/2024 11:2 3 PM CDT 12/10/2024 12:13 AM CDT Meño Chandra MD LAB BLOOD ORDERABLES Final Result Performing Organization Address [facility] Co de Phone Number [facility] Department [place] [address] * (ABNORMAL) CBC without differential (12/09/2024 11:23 PM CDT) [facility] WBC 13.07(H) 3.80 - 9.90 K/cumm Hgb 7.8(L) 13.0 - 17.5 g/dL [facility] Hct 23.4(L) 38.9 - 50.3 % [facility] Plt 271 150 - 400 K/cumm [facility] MPV 9.8 9.1 - 12.3 fL [facility] RBC 2.51(L) 4.30 - 5.80 M/cumm [facility] MCV 93.2 81.3 - 96.4 fL [facility] MCH 31.1 27.1 - 33.3 pg [facility] MCHC 33.3 32.3 - 35.7 g/dL [facility] RDW CV 14.7 11.1 - 14.9 % [facility] RDW SD 48.8(H) 35.7 - 48.1 fL [facility] NRBC abs 0.00 0.00 - 0.01 K/cumm [facility] Blood 12/09/2024 11:2 3 PM CDT 12/10/2024 12:09 AM CDT Meño Chandra MD LAB BLOOD [place] [address] * Phosphorus (12/09/2024 11:23 PM CDT) Phosphorus, pl 4.0 2.3 - 4.5 mg/dL Blood 12/09/2024 11:2 3 PM CDT 12/10/2024 Meño Chandra MD LAB BLOOD ORDERABLES Final Result Performing Organization Address City/[facility]/ZIP Co de Phone Number [facility] [place] [address] * (ABNORMAL) Magnesium (12/09/2024 11:23 PM CDT) Magnesium 2.9(H) 1.4 - 2.5 mg/dL Blood 12/09/2024 11:2 3 PM CDT 12/10/2024 Meño Chandra MD LAB BLOOD ORDERABLES Final Result [facility] [place] [address] * (ABNORMAL) Basic metabolic panel (12/09/2024 11:23 PM CDT) Pathologist [facility] Sodium 140 135 - 145 mmol/L Potassium, pl 4.6 3.3 - 4.9 mmol/L [facility] Chloride 108 97 - 110 mmol/L [facility] CO2 24 22 - 32 mmol/L [facility] Anion gap 8 2 - 15 mmol/L [facility] BUN 50(H) 6 - 25 mg/dL [facility] Creatinine 1.57(H) 0.80 - 1.30 mg/dL [facility] Glucose 112 70 - 199 mg/dL [facility] Comment: Interpretive Data Fasting glucose >/= 126 mg/dl is diagnostic for diabetes. Fasting is defined as no caloric intake for at least 8 hours. Fasting glucose between 100 mg/dl to 125 mg/dl is diagnostic of prediabetes. In a patient with classic symptoms of hyperglycemia or hyperglycemic crisis, a random glucose >/= 200 mg/dl is diagnostic for diabetes. In the absence of unequivocal hyperglycemia, results should be confirmed by repeat testing. The classification and Diagnosis of Diabetes Diabetes Care 2021; 46: S19-S40. Current interpretive data was last revised 2022. Calcium 8.2(L) 8.5 - 10.3 mg/dL [facility] Blood 12/09/2024 11:2 3 PM CDT 12/10/2024 us Meño Chandra MD LAB BLOOD ORDERABLES Final Result Performing Organization Address City/[facility]/ZIP Co de Phone Number [facility] Department [place] [place] [address] * POCT glucose (12/09/2024 8:28 PM CDT) Glucose, POC 175 70 - 199 mg/dL Blood 12/09/2024 8:28 PM CDT 12/09/2024 8:28 PM CDT Meño Chandra MD LAB POCT ORDERABLES - DEVICE Final Result Performing Organization Address City/[facility]/ZIP Co de Phone Number [facility] Department [place] [address] * XR Chest 1 View (12/09/2024 8:16 PM CDT) Anatomical Region Laterality Modality Body, Chest N/A Computed Radiogr aphy 12/09/2024 9:03 PM CDT Impressions 12/09/2024 9:03 PM CDT Comparison is made to chest radiograph dated 12/08/2024. Right internal jugular venous approach catheter tip overlies the right brachiocephalic vein near the confluence of the brachiocephalic veins. The patient is status post median sternotomy with sternal plates and screws. Mild bandlike areas of atelectasis in the right lower lung and in the left mid to lower lung, similar to prior study. No definite right pleural effusion. A small layering left pleural effusion is unchanged. No pneumothorax. Stable cardiomediastinal silhouette. Electronically signed by: Stella Vivar M.D. Narrative 12/09/2024 9:03 PM CDT EXAMINATION: 1 view chest radiograph Procedure Note Stella Vivar MD - 12/09/2024 EXAMINATION: 1 view chest radiograph IMPRESSION: Comparison is made to chest radiograph dated 12/08/2024. Right internal jugular venous approach catheter tip overlies the right brachiocephalic vein near the confluence of the brachiocephalic veins. The patient is status post median sternotomy with sternal plates and screws. Mild bandlike areas of atelectasis in the right lower lung and in the left mid to lower lung, similar to prior study. No definite right pleural effusion. A small layering left pleural effusion is unchanged. No pneumothorax. Stable cardiomediastinal silhouette. Electronically signed by: Stella Vivar M.D. Scar Pastor MD IMG XR PROCEDURES Final Re sult * (ABNORMAL) POCT glucose (12/09/2024 7:01 PM CDT) Glucose, POC 205(H) 70 - 199 mg/dL Blood 12/09/2024 7:01 PM CDT 12/09/2024 7:01 PM CDT Meño Chandra MD LAB POCT ORDERABLES - DEVICE Final Result Performing Organization Address [facility] Co de Phone Number [facility] [place] [address] * (ABNORMAL) POCT glucose (12/09/2024 5:22 PM CDT) Glucose, POC 219(H) 70 - 199 mg/dL Blood 12/09/2024 5:22 PM CDT 12/09/2024 5:22 PM CDT Meño Chandra MD LAB POCT ORDERABLES - DEVICE Final Result Performing Organization Address [facility] de Phone Number [facility] [place] [address] * (ABNORMAL) POCT glucose (12/09/2024 2:07 PM CDT) Glucose, POC 260(H) 70 - 199 mg/dL Blood 12/09/2024 2:07 PM CDT 12/09/2024 2:07 PM CDT Result [facility] Meño Chandra MD LAB POCT ORDERABLES - DEVICE Final Result Performing Organization Address [facility] [place] [address] * (ABNORMAL) POCT glucose (12/09/2024 12:12 PM CDT) Glucose, POC 325(H) 70 - 199 mg/dL Blood 12/09/2024 12:1 2 PM CDT 12/09/2024 12:12 PM CDT us Meño Chandra MD LAB POCT ORDERABLES - DEVICE Final Result [facility] Department [place] [address] * Critical Care (12/09/2024 8:00 AM CDT) Narrative Estuardo King MD - 12/09/2024 8:00 AM CDT Estuardo King MD 12/09/2024 2:10 PM Critical Care Performed by: Estuardo King MD Authorized by: Estuardo King MD CRITICAL CARE: Team: 83 CTICU Shift: AM Level of Billing: Critical Care My time spent with this patient was 60 minutes: Critical Provider Statement: I have seen and examined the patient on this day of service. I have reviewed and confirmed the history, physical exam, laboratory and radiologic data as documented in the signed ICU note. I have reviewed and discussed my treatment plan with the ICU team and other medical/home service consultant staff, making frequent assessments and decisions regarding this patient's complex medical care. Critical Care time was exclusive of time spent performing separately billed procedures, treating other patients, and teaching. This time was in addition to and separate from critical care provided by other practitioners in my group on this day of service. Critical Care was necessary to treat or prevent imminent or life-threatening deterioration of the following conditions: Acute pain/acute postoperative pain Tachy/anat arrhythmic event and Atrial fibrillation with rapid ventricular rate Atelectasis Acute kidney injury, Acute electrolyte derangement and Hypo- or Hyperglycemia Severe undifferentiated anemia Leukocytosis This time was spent by me doing the following: Acute pain control Initiation/active titration of anti-arrhythmic or rate controlling agent and Cardiac pacing Active and frequent reassessment of respiratory status and oxygen requirements and Incentive spirometry, pulmonary toilet Active and frequent monitoring of intake/output and volumen status and Glycemic control Active repletion of electrolytes I spent time reviewing and interpreting data from bedside monitors, laboratory results, and imaging, I spent time discussing the management of this critically ill patient with consultants and the medical staff and I spent time documenting in the medical record us Estuardo King MD IN CLINIC/BEDSIDE ORDERABLES Final Result * (ABNORMAL) POCT glucose (12/09/2024 7:50 AM CDT) Glucose, POC 242(H) 70 - 199 mg/dL Blood 12/09/2024 7:50 AM CDT 12/09/2024 7:50 AM CDT Meño Chandra MD LAB POCT ORDERABLES - DEVICE Final Result Performing Organization Address [facility] Co de Phone Number [facility] Department [place] [address] * POCT glucose (12/09/2024 1:40 AM CDT) Glucose, POC 164 70 - 199 mg/dL Blood 12/09/2024 1:40 AM CDT 12/09/2024 1:40 AM CDT Meño Chandra MD LAB POCT ORDERABLES - DEVICE Final Result Performing Organization Address [facility] de Phone Number [facility] Department [place] [place] [address] * (ABNORMAL) eGFR (12/09/2024 12:01 AM CDT) eGFR 42(L) >=60 mL/min/1. 73 m2 Comment: Interpretive Data Reference Interval Normal >/= 90 mL/min/1.73m2 Mildly decreased* 60 - 89 mL/min/1.73m2 Mildly to moderately decreased 45 - 59 mL/min/1.73m2 Moderately to severely decreased 30 - 44 mL/min/1.73m2 Severely decreased 15 - 29 mL/min/1.73m2 Kidney Failure < 15 mL/min/1.73m2 *Relative to young adult level Estimated glomerular filtration rate is determined by the 2020 CKD-EPI equation recommended by the National Kidney Foundation (A Unifying Approach to GFR Estimation: Recommendations of the NKF-ASK Task Force on Reassessing the Inclusion of Race in Diagnosing Kidney Disease, JASN 2020). The CKD-EPI equation should not be used for patients with unstable renal function and has not been validated in children and those over 70. Current interpretive data was last reviewed 2021. Blood 12/09/2024 12:0 1 AM CDT 12/09/2024 12:39 AM CDT Meño Chandra MD LAB BLOOD ORDERABLES Final Result Performing Organization Address [facility] de Phone Number [facility] [place] [address] * (ABNORMAL) Protime-INR (12/09/2024 12:01 AM CDT) PT 14.6(H) 9.7 - 13.0 sec INR 1.34(H) 0.90 - 1.20 [facility] Comment: Interpretive data Oral anticoagulant therapeutic ranges: Venous thromboembolism prophylaxis or treatment: 2.0-3.0 CARDIOLOGY Standard range: 2.0-3.0 High-intensity range: 2.5-3.5 Refer to indication-specific guidelines for appropriate target ranges for prosthetic heart valve replacement. Current interpretive data was last revised on 2019. Blood 12/09/2024 12:0 1 AM CDT 12/09/2024 12:17 AM CDT Meño Chandra MD LAB BLOOD ORDERABLES Final Result Performing Organization Address [facility] de Phone Number [facility] [place] [address] * (ABNORMAL) CBC without differential (12/09/2024 12:01 AM CDT) WBC 12.53(H) 3.80 - 9.90 K/cumm Hgb 7.7(L) 13.0 - 17.5 g/dL [facility] Hct 22.8(L) 38.9 - 50.3 % [facility] Plt 248 150 - 400 K/cumm [facility] MPV 9.6 9.1 - 12.3 fL [facility] RBC 2.45(L) 4.30 - 5.80 M/cumm [facility] MCV 93.1 81.3 - 96.4 fL [facility] MCH 31.4 27.1 - 33.3 pg [facility] MCHC 33.8 32.3 - 35.7 g/dL [facility] RDW CV 14.6 11.1 - 14.9 % [facility] RDW SD 48.7(H) 35.7 - 48.1 fL [facility] NRBC abs 0.00 0.00 - 0.01 K/cumm [facility] Blood 12/09/2024 12:0 1 AM CDT 12/09/2024 12:20 AM CDT Meño Chandra MD LAB BLOOD ORDERABLES Final Result Performing Organization Address City/[facility]/ZIP Co de Phone Number [facility] Department [place] [address] * Phosphorus (12/09/2024 12:01 AM CDT) Phosphorus, pl 3.3 2.3 - 4.5 mg/dL Blood 12/09/2024 12:0 1 AM CDT 12/09/2024 12:29 AM CDT Meño Chandra MD LAB BLOOD ORDERABLES Final Result [facility] [place] [address] * (ABNORMAL) Magnesium (12/09/2024 12:01 AM CDT) Magnesium 2.8(H) 1.4 - 2.5 mg/dL Blood 12/09/2024 12:0 1 AM CDT 12/09/2024 12:29 AM CDT Meño Chandra MD LAB BLOOD ORDERABLES Final Result [facility] Department [place] [address] * (ABNORMAL) Basic metabolic panel (12/09/2024 12:01 AM CDT) Sodium 141 135 - 145 mmol/L Potassium, pl 4.4 3.3 - 4.9 mmol/L [facility] Chloride 110 97 - 110 mmol/L [facility] CO2 23 22 - 32 mmol/L [facility] Anion gap 8 2 - 15 mmol/L [facility] BUN 50(H) 6 - 25 mg/dL [facility] Creatinine 1.66(H) 0.80 - 1.30 mg/dL [facility] Glucose 163 70 - 199 mg/dL [facility] Comment: Interpretive Data Fasting glucose >/= 126 mg/dl is diagnostic for diabetes. Fasting is defined as no caloric intake for at least 8 hours. Fasting glucose between 100 mg/dl to 125 mg/dl is diagnostic of prediabetes. In a patient with classic symptoms of hyperglycemia or hyperglycemic crisis, a random glucose >/= 200 mg/dl is diagnostic for diabetes. In the absence of unequivocal hyperglycemia, results should be confirmed by repeat testing. The classification and Diagnosis of Diabetes Diabetes Care 202; 46: S19-S40. Current interpretive data was last revised 2022. Calcium 7.8(L) 8.5 - 10.3 mg/dL [facility] Blood 12/09/2024 12:0 1 AM CDT 12/09/2024 12:29 AM CDT Meño Chandra MD LAB BLOOD ORDERABLES Final Result Performing Organization Address City/[facility]/ZIP Co de Phone Number [facility] Department [place] [address] * (ABNORMAL) POCT glucose (12/08/2024 9:08 PM CDT) Glucose, POC 234(H) 70 - 199 mg/dL Blood 12/08/2024 9:08 PM CDT 12/08/2024 9:08 PM CDT Meño Chandra MD LAB POCT ORDERABLES - DEVICE Final Result [facility] Department [place] [address] * XR Chest 1 View (12/08/2024 8:42 PM CDT) Anatomical Region Laterality Modality Body, Chest N/A Computed Radiogr aphy 12/09/2024 9:40 AM CDT Impressions 12/09/2024 9:47 AM CDT The current study is compared with the prior radiograph dated 12/07/2024 A right internal jugular catheter is in place, tip overlies the superior vena cava.. Median sternotomy plates and screws appear intact. No definite pleural effusion. Mild bibasilar atelectasis. No pneumothorax. Heart moderately enlarged though stable from previous. Dictated by: Prosper Salazar M.D. The radiology attending physician has personally reviewed this study, and had reviewed and/or edited this written report and agrees with it. Electronically signed by: Giovanna Vicente M.D. Narrative 12/09/2024 9:47 AM CDT EXAMINATION: 1 view chest radiograph Procedure Note Giovanna Vicente MD - 12/09/2024 EXAMINATION: 1 view chest radiograph IMPRESSION: The current study is compared with the prior radiograph dated 12/07/2024 A right internal jugular catheter is in place, tip overlies the superior vena cava.. Median sternotomy plates and screws appear intact. No definite pleural effusion. Mild bibasilar atelectasis. No pneumothorax. Heart moderately enlarged though stable from previous. Dictated by: Prosper Salazar M.D. The radiology attending physician has personally reviewed this study, and had reviewed and/or edited this written report and agrees with it. Electronically signed by: Giovanna Vicente M.D. us Scar Pastor MD IMG XR PROCEDURES Final Re sult * Potassium, whole blood (12/08/2024 8:19 PM CDT) [facility] Potassium, bld 4.3 3.3 - 4.9 mmol/L Blood 12/08/2024 8:19 PM CDT 12/08/2024 8:23 PM CDT us Meño Chandra MD LAB BLOOD ORDERABLES Final Result Performing Organization Address City/[facility]/ZIP Co de Phone Number [facility] [place] [address] * (ABNORMAL) POCT glucose (12/08/2024 8:17 PM CDT) [facility] Glucose, POC 221(H) 70 - 199 mg/dL Blood 12/08/2024 8:17 PM CDT 12/08/2024 8:17 PM CDT Meño Chandra MD LAB POCT ORDERABLES - DEVICE Final Result Performing Organization Address [facility] Co de Phone Number [facility] Department [place] [place] [address] * (ABNORMAL) POCT glucose (12/08/2024 3:25 PM CDT) [facility] Glucose, POC 334(H) 70 - 199 mg/dL Blood 12/08/2024 3:25 PM CDT 12/08/2024 3:25 PM CDT Meño Chandra MD LAB POCT ORDERABLES - DEVICE Final Result Performing Organization Address City/[facility] Co de Phone Number [facility] [place] [address] * Potassium, whole blood (12/08/2024 12:12 PM CDT) Potassium, bld 4.8 3.3 - 4.9 mmol/L Blood 12/08/2024 12:1 2 PM CDT 12/08/2024 12:26 PM CDT Meño Chandra MD LAB BLOOD ORDERABLES Final Result Performing Organization Address City/[facility] Co de Phone Number [facility] Department [place] [address] * (ABNORMAL) POCT glucose (12/08/2024 12:12 PM CDT) Glucose, POC 330(H) 70 - 199 mg/dL Blood 12/08/2024 12:1 2 PM CDT 12/08/2024 12:12 PM CDT Meño Chandra MD LAB POCT ORDERABLES - DEVICE Final Result Performing Organization Address [facility] Co de Phone Number [facility] [place] [place] [address] * Critical Care (12/08/2024 8:00 AM CDT) Narrative Estuardo King MD - 12/08/2024 8:00 AM CDT Estuardo King MD 12/09/2024 2:08 PM Critical Care Performed by: Estuardo King MD Authorized by: Estuardo King MD CRITICAL CARE: Team: 83 CTICU Shift: AM Level of Billing: Critical Care My time spent with this patient was 60 minutes: Critical Provider Statement: I have seen and examined the patient on this day of service. I have reviewed and confirmed the history, physical exam, laboratory and radiologic data as documented in the signed ICU note. I have reviewed and discussed my treatment plan with the ICU team and other medical/home service consultant staff, making frequent assessments and decisions regarding this patient's complex medical care. Critical Care time was exclusive of time spent performing separately billed procedures, treating other patients, and teaching. This time was in addition to and separate from critical care provided by other practitioners in my group on this day of service. Critical Care was necessary to treat or prevent imminent or life-threatening deterioration of the following conditions: Acute pain/acute postoperative pain Atrial fibrillation with rapid ventricular rate and Tachy/anat arrhythmic event Atelectasis Acute kidney injury, Acute electrolyte derangement and Hypo- or Hyperglycemia Severe undifferentiated anemia Leukocytosis This time was spent by me doing the following: Serial bedside patient exams Acute pain control Initiation/active titration of anti-arrhythmic or rate controlling agent Active and frequent reassessment of respiratory status and oxygen requirements and Incentive spirometry, pulmonary toilet Active and frequent monitoring of intake/output and volumen status and Glycemic control Active repletion of electrolytes I spent time reviewing and interpreting data from bedside monitors, laboratory results, and imaging and I spent time documenting in the medical record us Estuardo King MD IN CLINIC/BEDSIDE ORDERABLES Edited Result - Final * (ABNORMAL) POCT glucose (12/08/2024 7:50 AM CDT) Glucose, POC 249(H) 70 - 199 mg/dL Comment:Glu2: RN/MD Notified Glucose comment 1 Glu2: RN/MD Notified [facility] Blood 12/08/2024 7:50 AM CDT 12/08/2024 7:50 AM CDT Meño Chandra MD LAB POCT ORDERABLES - DEVICE Final Result Performing Organization Address [facility]/ZIP Co de Phone Number [facility] [place] [address] * (ABNORMAL) POCT glucose (12/08/2024 6:03 AM CDT) Glucose, POC 233(H) 70 - 199 mg/dL Blood 12/08/2024 6:03 AM CDT 12/08/2024 6:03 AM CDT Meño Chandra MD LAB POCT ORDERABLES - [place] [address] * (ABNORMAL) POCT glucose (12/08/2024 3:47 AM CDT) Glucose, POC 252(H) 70 - 199 mg/dL Blood 12/08/2024 3:47 AM CDT 12/08/2024 3:47 AM CDT Meño Chandra MD LAB POCT ORDERABLES - DEVICE Final Result Performing Organization Address City/[facility]/[place] [address] * POCT glucose (12/08/2024 1:58 AM CDT) [facility] Glucose, POC 186 70 - 199 mg/dL Blood 12/08/2024 1:58 AM CDT 12/08/2024 1:58 AM CDT Meño Chandra MD LAB POCT ORDERABLES - DEVICE Final Result Performing Organization Address [facility] [place] [address] * Infection Prevention Jeramie auris PCR, surveillance Axilla/Groin (12/08/2024 12:55 AM CDT) [facility] Jeramie auris DNA Not Detected Not Detected [facility] Comment: Interpretive Data Testing performed by [facility] using the Matt marie 6800 Jeramie auris assay. This assay detects DNA from Jeramie auris using Real-Time PCR. This assay is laboratory developed and is not cleared by the [place] Food and Drug Administration. The performance characteristics have been verified by the [facility]. Axilla/Groin 12/08/2024 12:5 5 AM CDT 12/08/2024 2:45 AM CDT Narrative WANDA RODRIGUES - 12/08/2024 1:17 PM CDT Order placed by [facility] due to ring surveillance. us Instant Order Generic Provider LAB MICROBIOLOGY - GENERAL ORDERABLES Final Result [facility] Department [place] [address] [facility] * Potassium, whole blood (12/08/2024 12:17 AM CDT) Potassium, bld 4.5 3.3 - 4.9 mmol/L Blood 12/08/2024 12:1 7 AM CDT 12/08/2024 12:26 AM CDT us Meño Chandra MD LAB BLOOD ORDERABLES Final Result Performing Organization Address City/[facility]/ZIP Co de Phone Number [facility] Department [place] [address] * (ABNORMAL) eGFR (12/08/2024 12:17 AM CDT) eGFR 42(L) >=60 mL/min/1. 73 m2 Comment: Interpretive Data Reference Interval Normal >/= 90 mL/min/1.73m2 Mildly decreased* 60 - 89 mL/min/1.73m2 Mildly to moderately decreased 45 - 59 mL/min/1.73m2 Moderately to severely decreased 30 - 44 mL/min/1.73m2 Severely decreased 15 - 29 mL/min/1.73m2 Kidney Failure < 15 mL/min/1.73m2 *Relative to young adult level Estimated glomerular filtration rate is determined by the 2020 CKD-EPI equation recommended by the National Kidney Foundation (A Unifying Approach to GFR Estimation: Recommendations of the NKF-ASK Task Force on Reassessing the Inclusion of Race in Diagnosing Kidney Disease, JASN 2020). The CKD-EPI equation should not be used for patients with unstable renal function and has not been validated in children and those over 70. Current interpretive data was last reviewed 2021. Blood 12/08/2024 12:1 7 AM CDT 12/08/2024 12:34 AM CDT us Meño Chandra MD LAB BLOOD ORDERABLES Final Result [facility] Department [place] [address] * (ABNORMAL) CBC without differential (12/08/2024 12:17 AM CDT) WBC 11.40(H) 3.80 - 9.90 K/cumm Hgb 8.0(L) 13.0 - 17.5 g/dL [facility] Hct 23.4(L) 38.9 - 50.3 % [facility] Plt 230 150 - 400 K/cumm [facility] MPV 9.9 9.1 - 12.3 fL [facility] RBC 2.55(L) 4.30 - 5.80 M/cumm [facility] MCV 91.8 81.3 - 96.4 fL [facility] MCH 31.4 27.1 - 33.3 pg [facility] MCHC 34.2 32.3 - 35.7 g/dL [facility] RDW CV 14.4 11.1 - 14.9 % [facility] RDW SD 47.2 35.7 - 48.1 fL [facility] NRBC abs 0.00 0.00 - 0.01 K/cumm [facility] Blood 12/08/2024 12:1 7 AM CDT 12/08/2024 12:34 AM CDT us Meño Chandra MD LAB BLOOD ORDERABLES Final Result [facility] [place] [address] * Type and screen (12/08/2024 12:17 AM CDT) Pathologist [facility] ABO Rh A Positive Terry, indirect Negative [facility] Blood 12/08/2024 12:1 7 AM CDT 12/08/2024 12:47 AM CDT Narrative [facility] - 12/08/2024 1:58 AM CDT Has the patient had Daratumumab or Isatuximab in the past 6 months?->Unknown Meño Chandra MD LAB BLOOD BANK TEST ORDERABLES Final Result Performing Organization Address City/[facility]/ZIP Co de Phone Number [facility] Department [place] [address] * Phosphorus (12/08/2024 12:17 AM CDT) Pathologist [facility] Phosphorus, pl 2.6 2.3 - 4.5 mg/dL Blood 12/08/2024 12:1 7 AM CDT 12/08/2024 12:34 AM CDT Meño Chandra MD LAB BLOOD ORDERABLES Final Result Performing Organization Address City/[facility] Co de Phone Number [facility] Department [place] [address] * (ABNORMAL) Magnesium (12/08/2024 12:17 AM CDT) Pathologist [facility] Magnesium 2.8(H) 1.4 - 2.5 mg/dL Blood 12/08/2024 12:1 7 AM CDT 12/08/2024 12:34 AM CDT Meño Chandra MD LAB BLOOD ORDERABLES Final Result Performing Organization Address [facility] Co de Phone Number [facility] [place] [address] * (ABNORMAL) Basic metabolic panel (12/08/2024 12:17 AM CDT) Sodium 139 135 - 145 mmol/L Potassium, pl 4.6 3.3 - 4.9 mmol/L [facility] Chloride 105 97 - 110 mmol/L [facility] CO2 24 22 - 32 mmol/L [facility] Anion gap 10 2 - 15 mmol/L [facility] BUN 58(H) 6 - 25 mg/dL [facility] Creatinine 1.65(H) 0.80 - 1.30 mg/dL [facility] Glucose 219(H) 70 - 199 mg/dL [facility] Comment: Interpretive Data Fasting glucose >/= 126 mg/dl is diagnostic for diabetes. Fasting is defined as no caloric intake for at least 8 hours. Fasting glucose between 100 mg/dl to 125 mg/dl is diagnostic of prediabetes. In a patient with classic symptoms of hyperglycemia or hyperglycemic crisis, a random glucose >/= 200 mg/dl is diagnostic for diabetes. In the absence of unequivocal hyperglycemia, results should be confirmed by repeat testing. The classification and Diagnosis of Diabetes Diabetes Care 2021; 46: S19-S40. Current interpretive data was last revised 2022. Calcium 7.6(L) 8.5 - 10.3 mg/dL [facility] Blood 12/08/2024 12:1 7 AM CDT 12/08/2024 12:34 AM CDT us Meño Chandra MD LAB BLOOD ORDERABLES Final Result Performing Organization Address City/[facility]/ZIP Co de Phone Number [facility] [place] [address] * (ABNORMAL) POCT glucose (12/08/2024 12:15 AM CDT) [facility] Glucose, POC 286(H) 70 - 199 mg/dL Blood 12/08/2024 12:1 5 AM CDT 12/08/2024 12:15 AM CDT Meño Chandra MD LAB POCT ORDERABLES - DEVICE Final Result [facility] Department [place] [place] [address] * XR Chest 1 View (12/07/2024 8:46 PM CDT) Anatomical Region Laterality Modality Body, Chest N/A Computed Radiogr aphy 12/08/2024 10:3 0 AM CDT Impressions 12/08/2024 10:49 AM CDT Comparison is made to radiograph 12/06/2024. Median sternotomy plates unchanged. Right internal jugular approach central venous catheter tip projects over superior vena cava. Hazy bilateral lower lung opacities likely corresponds to cardiophrenic fat pads. No definite pleural effusion. No pneumothorax. Mild bibasilar atelectasis. Stable cardiomediastinal silhouette. Dictated by: Margie Green M.D. The radiology attending physician has personally reviewed this study, and had reviewed and/or edited this written report and agrees with it. Electronically signed by: Giovanna Vicente M.D. Narrative 12/08/2024 10:49 AM CDT EXAMINATION: 1 view chest radiograph Procedure Note Giovanna Vicente MD - 12/08/2024 EXAMINATION: 1 view chest radiograph IMPRESSION: Comparison is made to radiograph 12/06/2024. Median sternotomy plates unchanged. Right internal jugular approach central venous catheter tip projects over superior vena cava. Hazy bilateral lower lung opacities likely corresponds to cardiophrenic fat pads. No definite pleural effusion. No pneumothorax. Mild bibasilar atelectasis. Stable cardiomediastinal silhouette. Dictated by: Margie Green M.D. The radiology attending physician has personally reviewed this study, and had reviewed and/or edited this written report and agrees with it. Electronically signed by: Giovanna Vicente M.D. Scar Pastor MD IMG XR PROCEDURES Final Re sult * (ABNORMAL) POCT glucose (12/07/2024 8:15 PM CDT) Glucose, POC 238(H) 70 - 199 mg/dL Blood 12/07/2024 8:15 PM CDT 12/07/2024 8:15 PM CDT Meño Chandra MD LAB POCT ORDERABLES - DEVICE Final Result Performing Organization Address [facility] de Phone Number [facility] [place] [address] * (ABNORMAL) POCT glucose (12/07/2024 5:23 PM CDT) Glucose, POC 207(H) 70 - 199 mg/dL Blood 12/07/2024 5:23 PM CDT 12/07/2024 5:23 PM CDT Meño Chandra MD LAB POCT ORDERABLES - DEVICE Final Result Performing Organization Address [facility] de Phone Number [facility] [place] [address] * POCT glucose (12/07/2024 3:33 PM CDT) Glucose, POC 182 70 - 199 mg/dL Blood 12/07/2024 3:33 PM CDT 12/07/2024 3:33 PM CDT Result [facility] Meño Chandra MD LAB POCT ORDERABLES - DEVICE Final Result Performing Organization Address [facility] de Phone Number [facility] [address] * (ABNORMAL) POCT glucose (12/07/2024 1:51 PM CDT) Glucose, POC 224(H) 70 - 199 mg/dL Blood 12/07/2024 1:51 PM CDT 12/07/2024 1:51 PM CDT Meño Chandra MD LAB POCT ORDERABLES - DEVICE Final Result Performing Organization Address [facility] Co de Phone Number [facility] [place] [address] * Potassium, whole blood (12/07/2024 12:12 PM CDT) Potassium, bld 4.2 3.3 - 4.9 mmol/L Blood 12/07/2024 12:1 2 PM CDT 12/07/2024 12:19 PM CDT Meño Chandra MD LAB BLOOD ORDERABLES Final Result Performing Organization Address [facility] [place] [address] * (ABNORMAL) POCT glucose (12/07/2024 12:09 PM CDT) Glucose, POC 201(H) 70 - 199 mg/dL Blood 12/07/2024 12:0 9 PM CDT 12/07/2024 12:09 PM CDT Meño Chandra MD LAB POCT ORDERABLES - DEVICE Final Result Performing Organization Address [facility] Co de Phone Number [facility] [place] [address] * (ABNORMAL) POCT glucose (12/07/2024 10:11 AM CDT) Glucose, POC 219(H) 70 - 199 mg/dL Blood 12/07/2024 10:1 1 AM CDT 12/07/2024 10:11 AM CDT Meño Chandra MD LAB POCT ORDERABLES - DEVICE Final Result Performing Organization Address [facility] Co de Phone Number [facility] [place] [address] * Critical Care (12/07/2024 8:00 AM CDT) Narrative Estuardo King MD - 12/07/2024 8:00 AM CDT Estuardo King MD 12/09/2024 2:06 PM Critical Care Performed by: Estuardo King MD Authorized by: Estuardo King MD CRITICAL CARE: Team: 83 CTICU Shift: AM Level of Billing: Critical Care My time spent with this patient was 45 minutes: Critical Provider Statement: I have seen and examined the patient on this day of service. I have reviewed and confirmed the history, physical exam, laboratory and radiologic data as documented in the signed ICU note. I have reviewed and discussed my treatment plan with the ICU team and other medical/home service consultant staff, making frequent assessments and decisions regarding this patient's complex medical care. Critical Care time was exclusive of time spent performing separately billed procedures, treating other patients, and teaching. This time was in addition to and separate from critical care provided by other practitioners in my group on this day of service. Critical Care was necessary to treat or prevent imminent or life-threatening deterioration of the following conditions: Acute pain/acute postoperative pain Atrial fibrillation with rapid ventricular rate and Tachy/anat arrhythmic event Atelectasis Acute kidney injury, Acute electrolyte derangement and Hypo- or Hyperglycemia Severe undifferentiated anemia Leukocytosis This time was spent by me doing the following: Serial bedside patient exams Acute pain control Initiation/active titration of anti-arrhythmic or rate controlling agent and Cardiac pacing Active and frequent reassessment of respiratory status and oxygen requirements and Incentive spirometry, pulmonary toilet Active and frequent monitoring of intake/output and volumen status and Glycemic control I spent time reviewing and interpreting data from bedside monitors, laboratory results, and imaging, I spent time documenting in the medical record and I spent time discussing the management of this critically ill patient with consultants and the medical staff us Estuardo King MD IN CLINIC/BEDSIDE ORDERABLES Final Result * POCT glucose (12/07/2024 7:01 AM CDT) Glucose, POC 147 70 - 199 mg/dL Blood 12/07/2024 7:01 AM CDT 12/07/2024 7:01 AM CDT Meño Chandra MD LAB POCT ORDERABLES - DEVICE Final Result Performing Organization Address [facility] Co de Phone Number [facility] [place] [address] * POCT glucose (12/07/2024 6:09 AM CDT) Glucose, POC 161 70 - 199 mg/dL Blood 12/07/2024 6:09 AM CDT 12/07/2024 6:09 AM CDT Meño Chandra MD LAB POCT ORDERABLES - DEVICE Final Result Performing Organization Address [facility] de Phone Number [facility] [place] [address] * Potassium, whole blood (12/07/2024 4:44 AM CDT) Potassium, bld 4.1 3.3 - 4.9 mmol/L Blood 12/07/2024 4:44 AM CDT 12/07/2024 4:48 AM CDT Result [facility] Meño Chandra MD LAB BLOOD ORDERABLES Final Result Performing Organization Address [facility] de Phone Number [facility] [place] [address] * Calcium, ionized, whole blood (12/07/2024 4:44 AM CDT) Ca, ionized, bld 4.50 4.50 - 5.10 mg/dL Blood 12/07/2024 4:44 AM CDT 12/07/2024 4:48 AM CDT Meño Chandra MD LAB BLOOD ORDERABLES Final Result [facility] [place] [address] * POCT glucose (12/07/2024 4:44 AM CDT) Glucose, POC 147 70 - 199 mg/dL Blood 12/07/2024 4:44 AM CDT 12/07/2024 4:44 AM CDT us Meño Chandra MD LAB POCT ORDERABLES - DEVICE Final Result Performing Organization Address [facility]/[place] [address] * POCT glucose (12/07/2024 3:57 AM CDT) Glucose, POC 145 70 - 199 mg/dL Blood 12/07/2024 3:57 AM CDT 12/07/2024 3:57 AM CDT us Meño Chandra MD LAB POCT ORDERABLES - DEVICE Final Result Performing Organization Address City/[facility]/[place] [address] * POCT glucose (12/07/2024 3:02 AM CDT) Glucose, POC 94 70 - 199 mg/dL Blood 12/07/2024 3:02 AM CDT 12/07/2024 3:02 AM CDT Meño Chandra MD LAB POCT ORDERABLES - DEVICE Final Result Performing Organization Address City/[facility]/ZIP Co de Phone Number [facility] [place] [address] * POCT glucose (12/07/2024 2:05 AM CDT) [facility] Glucose, POC 101 70 - 199 mg/dL Blood 12/07/2024 2:05 AM CDT 12/07/2024 2:05 AM CDT Meño Chandra MD LAB POCT ORDERABLES - DEVICE Final Result Performing Organization Address [facility] Co de Phone Number [facility] [place] [address] * POCT glucose (12/07/2024 1:03 AM CDT) [facility] Glucose, POC 122 70 - 199 mg/dL Blood 12/07/2024 1:03 AM CDT 12/07/2024 1:03 AM CDT Meño Chandra MD LAB POCT ORDERABLES - DEVICE Final Result Performing Organization Address [facility] Co de Phone Number [facility] [place] [address] * Potassium, whole blood (12/07/2024 12:30 AM CDT) [facility] Potassium, bld 3.8 3.3 - 4.9 mmol/L Blood 12/07/2024 12:3 0 AM CDT 12/07/2024 12:40 AM CDT Meño Chandra MD LAB BLOOD ORDERABLES Final Result Performing Organization Address [facility] Co de Phone Number [facility] [place] [address] * (ABNORMAL) eGFR (12/07/2024 12:30 AM CDT) [facility] eGFR 36(L) >=60 mL/min/1. 73 m2 Comment: Interpretive Data Reference Interval Normal >/= 90 mL/min/1.73m2 Mildly decreased* 60 - 89 mL/min/1.73m2 Mildly to moderately decreased 45 - 59 mL/min/1.73m2 Moderately to severely decreased 30 - 44 mL/min/1.73m2 Severely decreased 15 - 29 mL/min/1.73m2 Kidney Failure < 15 mL/min/1.73m2 *Relative to young adult level Estimated glomerular filtration rate is determined by the 2020 CKD-EPI equation recommended by the National Kidney Foundation (A Unifying Approach to GFR Estimation: Recommendations of the NKF-ASK Task Force on Reassessing the Inclusion of Race in Diagnosing Kidney Disease, JASN 2020). The CKD-EPI equation should not be used for patients with unstable renal function and has not been validated in children and those over 70. Current interpretive data was last reviewed 2021. Blood 12/07/2024 12:3 0 AM CDT 12/07/2024 12:49 AM CDT us Meño Chandra MD LAB BLOOD ORDERABLES Final Result [facility] [place] [address] * (ABNORMAL) CBC without differential (12/07/2024 12:30 AM CDT) WBC 9.80 3.80 - 9.90 K/cumm Hgb 7.9(L) 13.0 - 17.5 g/dL [facility] Hct 23.7(L) 38.9 - 50.3 % [facility] Plt 212 150 - 400 K/cumm [facility] [facility] MPV 9.8 9.1 - 12.3 fL [facility] RBC 2.57(L) 4.30 - 5.80 M/cumm [facility] MCV 92.2 81.3 - 96.4 fL [facility] MCH 30.7 27.1 - 33.3 pg [facility] MCHC 33.3 32.3 - 35.7 g/dL [facility] RDW CV 14.3 11.1 - 14.9 % [facility] RDW SD 47.5 35.7 - 48.1 fL [facility] NRBC abs 0.02(H) 0.00 - 0.01 K/cumm [facility] Blood 12/07/2024 12:3 0 AM CDT 12/07/2024 12:48 AM CDT Meño Chandra MD LAB BLOOD ORDERABLES Final Result Performing Organization Address City/[facility]/ZIP Co de Phone Number [facility] [place] [address] * Phosphorus (12/07/2024 12:30 AM CDT) [facility] Phosphorus, pl 2.8 2.3 - 4.5 mg/dL Blood 12/07/2024 12:3 0 AM CDT 12/07/2024 12:49 AM CDT Meño Chandra MD LAB BLOOD ORDERABLES Final Result Performing Organization Address [facility] Co de Phone Number [facility] [place] [place] [address] * (ABNORMAL) Magnesium (12/07/2024 12:30 AM CDT) [facility] Magnesium 2.8(H) 1.4 - 2.5 mg/dL Blood 12/07/2024 12:3 0 AM CDT 12/07/2024 12:49 AM CDT Meño Chandra MD LAB BLOOD ORDERABLES Final Result Performing Organization Address City/[facility] [place] [address] * (ABNORMAL) Basic metabolic panel (12/07/2024 12:30 AM CDT) [facility] Sodium 142 135 - 145 mmol/L Potassium, pl 3.8 3.3 - 4.9 mmol/L [facility] Chloride 110 97 - 110 mmol/L [facility] CO2 26 22 - 32 mmol/L [facility] Anion gap 6 2 - 15 mmol/L [facility] BUN 70(H) 6 - 25 mg/dL [facility] Creatinine 1.88(H) 0.80 - 1.30 mg/dL [facility] Glucose 93 70 - 199 mg/dL [facility] Comment: Interpretive Data Fasting glucose >/= 126 mg/dl is diagnostic for diabetes. Fasting is defined as no caloric intake for at least 8 hours. Fasting glucose between 100 mg/dl to 125 mg/dl is diagnostic of prediabetes. In a patient with classic symptoms of hyperglycemia or hyperglycemic crisis, a random glucose >/= 200 mg/dl is diagnostic for diabetes. In the absence of unequivocal hyperglycemia, results should be confirmed by repeat testing. The classification and Diagnosis of Diabetes Diabetes Care 2021; 46: S19-S40. Current interpretive data was last revised 2022. Calcium 8.0(L) 8.5 - 10.3 mg/dL [facility] Blood 12/07/2024 12:3 0 AM CDT 12/07/2024 12:49 AM CDT us Meño Chandra MD LAB BLOOD ORDERABLES Final Result [facility] Department [place] [place] [address] * POCT glucose (12/06/2024 11:52 PM CDT) [facility] Glucose, POC 107 70 - 199 mg/dL Blood 12/06/2024 11:5 2 PM CDT 12/06/2024 11:52 PM CDT Meño Chandra MD LAB POCT ORDERABLES - DEVICE Final Result [facility] Department [place] [address] * POCT glucose (12/06/2024 11:01 PM CDT) Glucose, POC 112 70 - 199 mg/dL Blood 12/06/2024 11:0 1 PM CDT 12/06/2024 11:01 PM CDT Meño Chandra MD LAB POCT ORDERABLES - DEVICE Final Result Performing Organization Address City/[facility] Co de Phone Number [facility] [place] [place] [address] * POCT glucose (12/06/2024 10:02 PM CDT) Glucose, POC 117 70 - 199 mg/dL Blood 12/06/2024 10:0 2 PM CDT 12/06/2024 10:02 PM CDT Meño Chandra MD LAB POCT ORDERABLES - DEVICE Final Result Performing Organization Address City/[facility]/ZIP Co de Phone Number [facility] [place] [place] [address] * POCT glucose (12/06/2024 9:16 PM CDT) Glucose, POC 143 70 - 199 mg/dL Blood 12/06/2024 9:16 PM CDT 12/06/2024 9:16 PM CDT Meño Chandra MD LAB POCT ORDERABLES - DEVICE Final Result Performing Organization Address City[facility]/ZIP Co de Phone Number [facility] [place] [place] [address] * POCT glucose (12/06/2024 8:07 PM CDT) Glucose, POC 142 70 - 199 mg/dL Blood 12/06/2024 8:07 PM CDT 12/06/2024 8:07 PM CDT Meño Chandra MD LAB POCT ORDERABLES - DEVICE Final Result [facility] Department [place] [address] * XR Chest 1 View (12/06/2024 7:35 PM CDT) Anatomical Region Laterality Modality Body, Chest N/A Computed Radiogr aphy 12/07/2024 8:11 AM CDT Impressions 12/07/2024 8:11 AM CDT A right internal jugular central venous catheter terminates at the superior vena cava. An aortic valve replacement is present. Sternal plates are aligned. There is no consolidation, pleural effusion, or pneumothorax. The cardiomediastinal silhouette is unchanged. Electronically signed by: Earl Perez M.D. Narrative 12/07/2024 8:11 AM CDT EXAMINATION: XR CHEST 1 VIEW COMPARISON: 12/05/2024 8:00 PM Procedure Note Earl Perez MD PhD - 12/07/2024 EXAMINATION: XR CHEST 1 VIEW COMPARISON: 12/05/2024 8:00 PM IMPRESSION: A right internal jugular central venous catheter terminates at the superior vena cava. An aortic valve replacement is present. Sternal plates are aligned. There is no consolidation, pleural effusion, or pneumothorax. The cardiomediastinal silhouette is unchanged. Electronically signed by: Earl Perez M.D. Scar Pastor MD IMG XR PROCEDURES Final Re sult * (ABNORMAL) POCT glucose (12/06/2024 6:16 PM CDT) Glucose, POC 224(H) 70 - 199 mg/dL Blood 12/06/2024 6:16 PM CDT 12/06/2024 6:16 PM CDT Meño Chandra MD LAB POCT ORDERABLES - DEVICE Final Result Performing Organization Address City/[facility] Co de Phone Number [facility] [place] [address] * (ABNORMAL) POCT glucose (12/06/2024 5:24 PM CDT) Glucose, POC 219(H) 70 - 199 mg/dL Blood 12/06/2024 5:24 PM CDT 12/06/2024 5:24 PM CDT Meño Chandra MD LAB POCT ORDERABLES - DEVICE Final Result Performing Organization Address [facility] Co de Phone Number [facility] [place] [address] * Oxyhemoglobin, central venous (12/06/2024 4:55 PM CDT) Oxyhemoglobin, CV 61.2 % Comment: Interpretive Data No reference range established. Current interpretive data was last revised 2019. Blood 12/06/2024 4:55 PM CDT 12/06/2024 5:03 PM CDT Meño Chandra MD LAB BLOOD ORDERABLES Final Result Performing Organization Address [facility] Co de Phone Number [facility] [place] [place] [address] * Potassium, whole blood (12/06/2024 4:55 PM CDT) Potassium, bld 4.1 3.3 - 4.9 mmol/L Blood 12/06/2024 4:55 PM CDT 12/06/2024 5:03 PM CDT Meño Chandra MD LAB BLOOD ORDERABLES Final Result Performing Organization Address [facility] Co de Phone Number WANDA [facility] Department [place] [address] * ECG 12 lead (12/06/2024 3:15 PM CDT) [facility] Ventricular Rate EKG/Min 89 BPM [facility] Atrial Rate 89 BPM [facility] AL-Interval (MSEC) 262 ms [facility] QRS-Interval (MSEC) 86 ms [facility] QT-Interval (MSEC) 442 ms [facility] QTc 537 ms [facility] P Zalma 54 degrees [facility] R Zalma -1 degrees [facility] T Zalma 19 degrees [facility] Diagnosis Atrial-paced rhythm with prolonged AV conduction T wave abnormality, consider inferior ischemia Prolonged QT Abnormal ECG Confirmed by Jayesh Freedman MD ([id number]) on 12/07/2024 10:40:07 AM [facility] 12/06/2024 3:15 PM CDT 12/07/2024 10:40 AM CDT us Meño Chandra MD ECG ORDERABLES Caro l Result [facility] * (ABNORMAL) POCT glucose (12/06/2024 2:52 PM CDT) Glucose, POC 235(H) 70 - 199 mg/dL Blood 12/06/2024 2:52 PM CDT 12/06/2024 2:52 PM CDT us Meño Chandra MD LAB POCT ORDERABLES - DEVICE Final Result [facility] Department [place] [address] * (ABNORMAL) POCT glucose (12/06/2024 1:14 PM CDT) Glucose, POC 237(H) 70 - 199 mg/dL Blood 12/06/2024 1:14 PM CDT 12/06/2024 1:14 PM CDT Meño Chandra MD LAB POCT ORDERABLES - DEVICE Final Result Performing Organization Address [facility] Co de Phone Number [facility] [place] [address] * (ABNORMAL) POCT glucose (12/06/2024 1:12 PM CDT) Glucose, POC 391(H) 70 - 199 mg/dL Blood 12/06/2024 1:12 PM CDT 12/06/2024 1:12 PM CDT Meño Chandra MD LAB POCT ORDERABLES - DEVICE Final Result Performing Organization Address [facility] de Phone Number [facility] [place] [address] * (ABNORMAL) POCT glucose (12/06/2024 12:23 PM CDT) Glucose, POC 244(H) 70 - 199 mg/dL Blood 12/06/2024 12:2 3 PM CDT 12/06/2024 12:23 PM CDT us Meño Chandra MD LAB POCT ORDERABLES - DEVICE Final Result Performing Organization Address [facility] de Phone Number [facility] [place] [address] * (ABNORMAL) POCT glucose (12/06/2024 11:01 AM CDT) Glucose, POC 255(H) 70 - 199 mg/dL Blood 12/06/2024 11:0 1 AM CDT 12/06/2024 11:01 AM CDT Meño Chandra MD LAB POCT ORDERABLES - DEVICE Final Result Performing Organization Address [facility]/ZIP Co de Phone Number CERNER [facility] Department [place] [address] * ECG 12 lead (12/06/2024 10:45 AM CDT) Ventricular Rate EKG/Min 63 BPM [facility] Atrial Rate 63 BPM [facility] AL-Interval (MSEC) 160 ms [facility] QRS-Interval (MSEC) 92 ms [facility] QT-Interval (MSEC) 450 ms [facility] QTc 460 ms [facility] P Zalma 66 degrees [facility] R Zalma 5 degrees [facility] T Zalma 5 degrees [facility] Diagnosis Normal sinus rhythm Nonspecific T wave abnormality Prolonged QT Abnormal ECG No previous ECGs available Confirmed by Jayesh Freedman MD ([id number]) on 12/07/2024 10:44:18 AM [facility] 12/06/2024 10:4 5 AM CDT 12/07/2024 10:44 AM CDT us Meño Chandra MD ECG ORDERABLES Caro l Result [facility] * (ABNORMAL) POCT glucose (12/06/2024 10:10 AM CDT) Glucose, POC 232(H) 70 - 199 mg/dL Blood 12/06/2024 10:1 0 AM CDT 12/06/2024 10:10 AM CDT us Meño Chandra MD LAB POCT ORDERABLES - DEVICE Final Result Performing Organization Address City/[facility]/ZIP Co de Phone Number [facility] Department [place] [address] * (ABNORMAL) POCT glucose (12/06/2024 9:01 AM CDT) Glucose, POC 222(H) 70 - 199 mg/dL Blood 12/06/2024 9:01 AM CDT 12/06/2024 9:01 AM CDT Meño Chandra MD LAB POCT ORDERABLES - DEVICE Final Result Performing Organization Address City/[facility] Co de Phone Number [facility] Department [place] [address] * POCT glucose (12/06/2024 8:02 AM CDT) Glucose, POC 158 70 - 199 mg/dL Blood 12/06/2024 8:02 AM CDT 12/06/2024 8:02 AM CDT Meño Chandra MD LAB POCT ORDERABLES - DEVICE Final Result Performing Organization Address [facility] de Phone Number [facility] [place] [address] * Critical Care (12/06/2024 8:00 AM CDT) Narrative Estuardo King MD - 12/06/2024 8:00 AM CDT Estuardo King MD 12/06/2024 6:18 PM Critical Care Performed by: Estuardo King MD Authorized by: Estuardo King MD CRITICAL CARE: Team: 83 CTICU Shift: AM Level of Billing: Critical Care My time spent with this patient was 60 minutes: Critical Provider Statement: I have seen and examined the patient on this day of service. I have reviewed and confirmed the history, physical exam, laboratory and radiologic data as documented in the signed ICU note. I have reviewed and discussed my treatment plan with the ICU team and other medical/home service consultant staff, making frequent assessments and decisions regarding this patient's complex medical care. Critical Care time was exclusive of time spent performing separately billed procedures, treating other patients, and teaching. This time was in addition to and separate from critical care provided by other practitioners in my group on this day of service. Critical Care was necessary to treat or prevent imminent or life-threatening deterioration of the following conditions: Acute pain/acute postoperative pain Atrial fibrillation with rapid ventricular rate and Tachy/anat arrhythmic event Atelectasis Acute kidney injury, Acute electrolyte derangement and Hypo- or Hyperglycemia Severe undifferentiated anemia This time was spent by me doing the following: Acute pain control Cardiac pacing and Initiation/active titration of anti-arrhythmic or rate controlling agent Active and frequent reassessment of respiratory status and oxygen requirements and Incentive spirometry, pulmonary toilet Active and frequent monitoring of intake/output and volumen status and Glycemic control Active repletion of electrolytes I spent time reviewing and interpreting data from bedside monitors, laboratory results, and imaging, I spent time discussing the management of this critically ill patient with consultants and the medical staff and I spent time documenting in the medical record us Estuardo King MD IN CLINIC/BEDSIDE ORDERABLES Final Result * POCT glucose (12/06/2024 6:41 AM CDT) Glucose, POC 149 70 - 199 mg/dL Blood 12/06/2024 6:41 AM CDT 12/06/2024 6:41 AM CDT us Meño Chandra MD LAB POCT ORDERABLES - DEVICE Final Result Performing Organization Address [facility]/ZIP Co de Phone Number [facility] Department [place] [place] [address] * POCT glucose (12/06/2024 5:02 AM CDT) Glucose, POC 176 70 - 199 mg/dL Blood 12/06/2024 5:02 AM CDT 12/06/2024 5:02 AM CDT Meño Chandra MD LAB POCT ORDERABLES - DEVICE Final Result [facility] Department [place] [address] * Potassium, whole blood (12/06/2024 3:46 AM CDT) Potassium, bld 4.4 3.3 - 4.9 mmol/L Blood 12/06/2024 3:46 AM CDT 12/06/2024 4:00 AM CDT us Meño Chandra MD LAB BLOOD ORDERABLES Final Result Performing Organization Address [facility] de Phone Number [facility] [place] [address] * POCT glucose (12/06/2024 3:46 AM CDT) Glucose, POC 185 70 - 199 mg/dL Blood 12/06/2024 3:46 AM CDT 12/06/2024 3:46 AM CDT Meño Chandra MD LAB POCT ORDERABLES - DEVICE Final Result Performing Organization Address [facility] de Phone Number [facility] [place] [place] [address] * POCT glucose (12/06/2024 2:35 AM CDT) Glucose, POC 179 70 - 199 mg/dL Blood 12/06/2024 2:35 AM CDT 12/06/2024 2:35 AM CDT Meño Chandra MD LAB POCT ORDERABLES - DEVICE Final Result Performing Organization Address [facility] de Phone Number [facility] [place] [address] * POCT glucose (12/06/2024 1:22 AM CDT) Glucose, POC 187 70 - 199 mg/dL Blood 12/06/2024 1:22 AM CDT 12/06/2024 1:22 AM CDT us Meño Chandra MD LAB POCT ORDERABLES - DEVICE Final Result WANDA RODRIGUES [facility] [place] [address] * Potassium, whole blood (12/06/2024 12:27 AM CDT) Potassium, bld 3.7 3.3 - 4.9 mmol/L Blood 12/06/2024 12:2 7 AM CDT 12/06/2024 12:37 AM CDT Meño Chandra MD LAB BLOOD ORDERABLES Final Result Performing Organization Address [facility] Co de Phone Number WANDA RODRIGUES [facility] [place] [place] [address] * (ABNORMAL) eGFR (12/06/2024 12:27 AM CDT) eGFR 27(L) >=60 mL/min/1. 73 m2 Comment: Interpretive Data Reference Interval Normal >/= 90 mL/min/1.73m2 Mildly decreased* 60 - 89 mL/min/1.73m2 Mildly to moderately decreased 45 - 59 mL/min/1.73m2 Moderately to severely decreased 30 - 44 mL/min/1.73m2 Severely decreased 15 - 29 mL/min/1.73m2 Kidney Failure < 15 mL/min/1.73m2 *Relative to young adult level Estimated glomerular filtration rate is determined by the 2020 CKD-EPI equation recommended by the National Kidney Foundation (A Unifying Approach to GFR Estimation: Recommendations of the NKF-ASK Task Force on Reassessing the Inclusion of Race in Diagnosing Kidney Disease, JASN 2020). The CKD-EPI equation should not be used for patients with unstable renal function and has not been validated in children and those over 70. Current interpretive data was last reviewed 2021. Blood 12/06/2024 12:2 7 AM CDT 12/06/2024 12:50 AM CDT eMño Chandra MD LAB BLOOD ORDERABLES Final Result [facility] Department [place] [address] * (ABNORMAL) POCT glucose (12/06/2024 12:27 AM CDT) [facility] Glucose, POC 248(H) 70 - 199 mg/dL Blood 12/06/2024 12:2 7 AM CDT 12/06/2024 12:27 AM CDT us Meño Chandra MD LAB POCT ORDERABLES - DEVICE Final Result Performing Organization Address City/[facility] Co de Phone Number [facility] [place] [address] * (ABNORMAL) CBC without differential (12/06/2024 12:27 AM CDT) [facility] WBC 9.51 3.80 - 9.90 K/cumm Hgb 8.1(L) 13.0 - 17.5 g/dL [facility] Hct 23.7(L) 38.9 - 50.3 % [facility] Plt 217 150 - 400 K/cumm [facility] MPV 10.3 9.1 - 12.3 fL [facility] RBC 2.60(L) 4.30 - 5.80 M/cumm [facility] MCV 91.2 81.3 - 96.4 fL [facility] MCH 31.2 27.1 - 33.3 pg [facility] MCHC 34.2 32.3 - 35.7 g/dL [facility] RDW CV 14.2 11.1 - 14.9 % [facility] RDW SD 47.1 35.7 - 48.1 fL [facility] NRBC abs 0.00 0.00 - 0.01 K/cumm [facility] Blood 12/06/2024 12:2 7 AM CDT 12/06/2024 12:50 AM CDT us Meño Chandra MD LAB BLOOD ORDERABLES Final Result Performing Organization Address City/[facility]/ZIP Co de Phone Number [facility] [place] [address] * Phosphorus (12/06/2024 12:27 AM CDT) Phosphorus, pl 2.9 2.3 - 4.5 mg/dL Blood 12/06/2024 12:2 7 AM CDT 12/06/2024 12:50 AM CDT Meño Chandra MD LAB BLOOD ORDERABLES Final Result Performing Organization Address [facility] Co de Phone Number [facility] [place] [address] * (ABNORMAL) Magnesium (12/06/2024 12:27 AM CDT) [facility] Magnesium 2.7(H) 1.4 - 2.5 mg/dL Blood 12/06/2024 12:2 7 AM CDT 12/06/2024 12:50 AM CDT Meño Chandra MD LAB BLOOD ORDERABLES Final Result Performing Organization Address City/[facility] Co de Phone Number [facility] [place] [address] * (ABNORMAL) Blood gas, arterial (12/06/2024 12:27 AM CDT) pH, Art 7.45 7.35 - 7.45 PCO2, Arterial 29(L) 35 - 45 mmHg [facility] PO2, Arterial 82(L) 83 - 108 mmHg [facility] HCO3 Art (Calculated) 21 20 - 30 mmol/L [facility] BE, art -2 mmol/L [facility] Comment: Interpretive Data No Reference Range Established Current Interpretive Data was last revised on 2017 O2 Sat Art (Measured) 97(H) 90 - 95 % [facility] Blood 12/06/2024 12:2 7 AM CDT 12/06/2024 12:37 AM CDT Meño Chandra MD LAB BLOOD ORDERABLES Final Result [facility] Department [place] [address] * (ABNORMAL) Basic metabolic panel (12/06/2024 12:27 AM CDT) Pathologist [facility] Sodium 139 135 - 145 mmol/L Potassium, pl 3.7 3.3 - 4.9 mmol/L [facility] Chloride 107 97 - 110 mmol/L [facility] CO2 22 22 - 32 mmol/L [facility] Anion gap 10 2 - 15 mmol/L [facility] BUN 80(H) 6 - 25 mg/dL [facility] Creatinine 2.41(H) 0.80 - 1.30 mg/dL [facility] Glucose 238(H) 70 - 199 mg/dL [facility] Comment: Interpretive Data Fasting glucose >/= 126 mg/dl is diagnostic for diabetes. Fasting is defined as no caloric intake for at least 8 hours. Fasting glucose between 100 mg/dl to 125 mg/dl is diagnostic of prediabetes. In a patient with classic symptoms of hyperglycemia or hyperglycemic crisis, a random glucose >/= 200 mg/dl is diagnostic for diabetes. In the absence of unequivocal hyperglycemia, results should be confirmed by repeat testing. The classification and Diagnosis of Diabetes Diabetes Care 2021; 46: S19-S40. Current interpretive data was last revised 2022. Calcium 8.4(L) 8.5 - 10.3 mg/dL [facility] Blood 12/06/2024 12:2 7 AM CDT 12/06/2024 12:50 AM CDT us Meño Chandra MD LAB BLOOD ORDERABLES Final Result Performing Organization Address City/[facility]/ZIP Co de Phone Number [facility] [place] [address] * (ABNORMAL) POCT glucose (12/05/2024 11:06 PM CDT) Glucose, POC 270(H) 70 - 199 mg/dL Blood 12/05/2024 11:0 6 PM CDT 12/05/2024 11:06 PM CDT Meño Chandra MD LAB POCT ORDERABLES - DEVICE Final Result Performing Organization Address City/[facility] [place] [address] * (ABNORMAL) POCT glucose (12/05/2024 10:16 PM CDT) Glucose, POC 308(H) 70 - 199 mg/dL Blood 12/05/2024 10:1 6 PM CDT 12/05/2024 10:16 PM CDT Meño Chandra MD LAB POCT ORDERABLES - DEVICE Final Result Performing Organization Address [facility] Co de Phone Number [facility] [place] [place] [address] * (ABNORMAL) POCT glucose (12/05/2024 9:10 PM CDT) [facility] Signature Glucose, POC 306(H) 70 - 199 mg/dL Blood 12/05/2024 9:10 PM CDT 12/05/2024 9:10 PM CDT Meño Chandra MD LAB POCT ORDERABLES - DEVICE Final Result Performing Organization Address City/[facility] Co de Phone Number [facility] [place] [address] * Potassium, whole blood (12/05/2024 8:07 PM CDT) [facility] Potassium, bld 4.1 3.3 - 4.9 mmol/L Blood 12/05/2024 8:07 PM CDT 12/05/2024 8:16 PM CDT Meño Chandra MD LAB BLOOD ORDERABLES Final Result Performing Organization Address City/[facility] Co de Phone Number [facility] Department [place] [address] * (ABNORMAL) POCT glucose (12/05/2024 8:06 PM CDT) [facility] Glucose, POC 310(H) 70 - 199 mg/dL Blood 12/05/2024 8:06 PM CDT 12/05/2024 8:06 PM CDT Meño Chandra MD LAB POCT ORDERABLES - DEVICE Final Result Performing Organization Address [facility] Co de Phone Number [facility] [place] [address] * XR Chest 1 View (12/05/2024 8:02 PM CDT) Anatomical Region Laterality Modality Body, Chest N/A Digital Radiogra phy 12/06/2024 9:52 AM CDT Impressions 12/06/2024 10:35 AM CDT Comparison is made to radiograph 12/04/2024 at 7:42 PM. Right internal jugular approach central venous catheter tip projects over superior vena cava. Median sternotomy plates and changes of aortic valve replacement. Small lung volumes. Trace right pleural effusion with associated right lower lung atelectasis unchanged. Unchanged hazy left lower lung opacity likely a small posterior layering effusion and associated atelectasis unchanged compared to prior study. No pulmonary edema. No pneumothorax. Stable cardiomediastinal silhouette. Dictated by: Margie Green M.D. The radiology attending physician has personally reviewed this study, and had reviewed and/or edited this written report and agrees with it. Electronically signed by: Isaac Traore M.D. Narrative 12/06/2024 10:35 AM CDT EXAMINATION: 1 view chest radiograph Procedure Note Isaac Traore MD - 12/06/2024 EXAMINATION: 1 view chest radiograph IMPRESSION: Comparison is made to radiograph 12/04/2024 at 7:42 PM. Right internal jugular approach central venous catheter tip projects over superior vena cava. Median sternotomy plates and changes of aortic valve replacement. Small lung volumes. Trace right pleural effusion with associated right lower lung atelectasis unchanged. Unchanged hazy left lower lung opacity likely a small posterior layering effusion and associated atelectasis unchanged compared to prior study. No pulmonary edema. No pneumothorax. Stable cardiomediastinal silhouette. Dictated by: Margie Green M.D. The radiology attending physician has personally reviewed this study, and had reviewed and/or edited this written report and agrees with it. Electronically signed by: Isaac Traore M.D. Scar Pastor MD IMG XR PROCEDURES Final Re sult * POCT glucose (12/05/2024 7:15 PM CDT) Glucose, POC 184 70 - 199 mg/dL Blood 12/05/2024 7:15 PM CDT 12/05/2024 7:15 PM CDT Meño Chandra MD LAB POCT ORDERABLES - DEVICE Final Result [facility] Department [place] [address] * POCT glucose (12/05/2024 5:59 PM CDT) Glucose, POC 150 70 - 199 mg/dL Blood 12/05/2024 5:59 PM CDT 12/05/2024 5:59 PM CDT us Meño Chandra MD LAB POCT ORDERABLES - DEVICE Final Result [facility] [address] * (ABNORMAL) POCT glucose (12/05/2024 4:56 PM CDT) Glucose, POC 204(H) 70 - 199 mg/dL Blood 12/05/2024 4:56 PM CDT 12/05/2024 4:56 PM CDT Meño Chandra MD LAB POCT ORDERABLES - DEVICE Final Result Performing Organization Address [facility] Co de Phone Number [facility] [address] * Potassium, whole blood (12/05/2024 4:54 PM CDT) Potassium, bld 3.7 3.3 - 4.9 mmol/L Blood 12/05/2024 4:54 PM CDT 12/05/2024 5:05 PM CDT Meño Chandra MD LAB BLOOD ORDERABLES Final Result Performing Organization Address City/[facility]/ZIP Co de Phone Number [facility] [place] [address] * POCT glucose (12/05/2024 4:07 PM CDT) Glucose, POC 197 70 - 199 mg/dL Blood 12/05/2024 4:07 PM CDT 12/05/2024 4:07 PM CDT Meño Chandra MD LAB POCT ORDERABLES - DEVICE Final Result Performing Organization Address City/[facility]/ZIP Co de Phone Number [facility] [place] [address] * POCT glucose (12/05/2024 3:05 PM CDT) Glucose, POC 187 70 - 199 mg/dL Blood 12/05/2024 3:0 5 PM CDT 12/05/2024 3:05 PM CDT Meño Chandra MD LAB POCT ORDERABLES - DEVICE Final Result Performing Organization Address City/[facility] [place] [address] * POCT glucose (12/05/2024 2:07 PM CDT) Glucose, POC 199 70 - 199 mg/dL Blood 12/05/2024 2:07 PM CDT 12/05/2024 2:07 PM CDT Meño Chandra MD LAB POCT ORDERABLES - DEVICE Final Result Performing Organization Address [facility] [place] [address] * POCT glucose (12/05/2024 1:01 PM CDT) Glucose, POC 173 70 - 199 mg/dL Blood 12/05/2024 1:01 PM CDT 12/05/2024 1:01 PM CDT Meño Chandra MD LAB POCT ORDERABLES - DEVICE Final Result Performing Organization Address City/[facility]/[place] [address] * (ABNORMAL) POCT glucose (12/05/2024 12:05 PM CDT) Glucose, POC 209(H) 70 - 199 mg/dL Blood 12/05/2024 12:0 5 PM CDT 12/05/2024 12:05 PM CDT Meño Chandra MD LAB POCT ORDERABLES - DEVICE Final Result Performing Organization Address [facility] de Phone Number [facility] [place] [address] * Potassium, whole blood (12/05/2024 12:04 PM CDT) Potassium, bld 4.1 3.3 - 4.9 mmol/L Blood 12/05/2024 12:0 4 PM CDT 12/05/2024 12:10 PM CDT Result [facility] Meño Chandra MD LAB BLOOD ORDERABLES Final Result Performing Organization Address [facility] de Phone Number [facility] [place] [address] * POCT glucose (12/05/2024 10:53 AM CDT) Glucose, POC 148 70 - 199 mg/dL Blood 12/05/2024 10:5 3 AM CDT 12/05/2024 10:53 AM CDT Meño Chandra MD LAB POCT ORDERABLES - DEVICE Final Result Performing Organization Address [facility] de Phone Number [facility] [place] [address] * POCT glucose (12/05/2024 10:05 AM CDT) Glucose, POC 116 70 - 199 mg/dL Blood 12/05/2024 10:0 5 AM CDT 12/05/2024 10:05 AM CDT Meño Chandra MD LAB POCT ORDERABLES - DEVICE Final Result Performing Organization Address [facility]/ZIP Co de Phone Number [facility] [place] [address] * POCT glucose (12/05/2024 9:13 AM CDT) Glucose, POC 96 70 - 199 mg/dL Blood 12/05/2024 9:13 AM CDT 12/05/2024 9:13 AM CDT Meño Chandra MD LAB POCT ORDERABLES - DEVICE Final Result Performing Organization Address [facility] Co de Phone Number [facility] [place] [address] * Potassium, whole blood (12/05/2024 8:17 AM CDT) Potassium, bld 3.7 3.3 - 4.9 mmol/L Blood 12/05/2024 8:17 AM CDT 12/05/2024 8:22 AM CDT Meño Chandra MD LAB BLOOD ORDERABLES Final Result Performing Organization Address [facility] Co de Phone Number [facility] [place] [address] * POCT glucose (12/05/2024 8:17 AM CDT) Glucose, POC 128 70 - 199 mg/dL Blood 12/05/2024 8:17 AM CDT 12/05/2024 8:17 AM CDT Meño Chandra MD LAB POCT ORDERABLES - DEVICE Final Result Performing Organization Address City/[facility]/ZIP Co de Phone Number [facility] [place] [address] * (ABNORMAL) Blood gas, arterial (12/05/2024 8:17 AM CDT) pH, Art 7.47(H) 7.35 - 7.45 PCO2, Arterial 28(L) 35 - 45 mmHg [facility] PO2, Arterial 110(H) 83 - 108 mmHg [facility] HCO3 Art (Calculated) 21 20 - 30 mmol/L [facility] BE, art -2 mmol/L [facility] Comment: Interpretive Data No Reference Range Established Current Interpretive Data was last revised on 2017 O2 Sat Art (Measured) 99(H) 90 - 95 % [facility] Blood 12/05/2024 8:17 AM CDT 12/05/2024 8:22 AM CDT us Meño Chandra MD LAB BLOOD ORDERABLES Final Result [facility] [place] [address] * Critical Care (12/05/2024 8:00 AM CDT) Narrative Estuardo King MD - 12/05/2024 8:00 AM CDT Estuardo King MD 12/06/2024 6:16 PM Critical Care Performed by: Estuardo King MD Authorized by: Estuardo King MD CRITICAL CARE: Team: 83 CTICU Shift: AM Level of Billing: Critical Care My time spent with this patient was 60 minutes: Critical Provider Statement: I have seen and examined the patient on this day of service. I have reviewed and confirmed the history, physical exam, laboratory and radiologic data as documented in the signed ICU note. I have reviewed and discussed my treatment plan with the ICU team and other medical/home service consultant staff, making frequent assessments and decisions regarding this patient's complex medical care. Critical Care time was exclusive of time spent performing separately billed procedures, treating other patients, and teaching. This time was in addition to and separate from critical care provided by other practitioners in my group on this day of service. Critical Care was necessary to treat or prevent imminent or life-threatening deterioration of the following conditions: Acute pain/acute postoperative pain Atrial fibrillation with rapid ventricular rate and Tachy/anat arrhythmic event Atelectasis Acute kidney injury, Acute electrolyte derangement and Hypo- or Hyperglycemia Severe undifferentiated anemia This time was spent by me doing the following: Acute pain control Cardiac pacing and Initiation/active titration of anti-arrhythmic or rate controlling agent Active and frequent reassessment of respiratory status and oxygen requirements and Incentive spirometry, pulmonary toilet Active and frequent monitoring of intake/output and volumen status and Glycemic control Active repletion of electrolytes I spent time reviewing and interpreting data from bedside monitors, laboratory results, and imaging, I spent time discussing the management of this critically ill patient with consultants and the medical staff and I spent time documenting in the medical record us Estuardo King MD IN CLINIC/BEDSIDE ORDERABLES Final Result * POCT glucose (12/05/2024 6:54 AM CDT) Glucose, POC 143 70 - 199 mg/dL Blood 12/05/2024 6:54 AM CDT 12/05/2024 6:54 AM CDT us Meño Chandra MD LAB POCT ORDERABLES - DEVICE Final Result Performing Organization Address [facility] Co de Phone Number [facility] Department [place] [address] * POCT glucose (12/05/2024 6:09 AM CDT) Glucose, POC 159 70 - 199 mg/dL Blood 12/05/2024 6:09 AM CDT 12/05/2024 6:09 AM CDT us Meño Chandra MD LAB POCT ORDERABLES - DEVICE Final Result Performing Organization Address [facility]/ZIP Co de Phone Number [facility] [place] [address] * (ABNORMAL) POCT glucose (12/05/2024 5:03 AM CDT) Glucose, POC 202(H) 70 - 199 mg/dL Blood 12/05/2024 5:03 AM CDT 12/05/2024 5:03 AM CDT Meño Chandra MD LAB POCT ORDERABLES - DEVICE Final Result Performing Organization Address City/[facility]/ZIP Co de Phone Number [facility] [place] [address] * (ABNORMAL) POCT glucose (12/05/2024 4:13 AM CDT) Glucose, POC 219(H) 70 - 199 mg/dL Blood 12/05/2024 4:13 AM CDT 12/05/2024 4:13 AM CDT Meño Chandra MD LAB POCT ORDERABLES - DEVICE Final Result Performing Organization Address City/[facility] Co de Phone Number [facility] [place] [address] * Infection Prevention Jeramie auris PCR, surveillance Axilla/Groin (12/05/2024 4:10 AM CDT) Pathologist [facility] Jeramie auris DNA Not Detected Not Detected [facility] Comment: Interpretive Data Testing performed by [facility] using the Matt marie 6800 Jeramie auris assay. This assay detects DNA from Jeramie auris using Real-Time PCR. This assay is laboratory developed and is not cleared by the [place] Food and Drug Administration. The performance characteristics have been verified by the [facility]. Axilla/Groin 12/05/2024 4:10 AM CDT 12/05/2024 6:37 AM CDT Narrative [facility] - 12/05/2024 2:29 PM CDT Order placed by [facility] due to ring surveillance. Instant Order Generic Provider LAB MICROBIOLOGY - GENERAL ORDERABLES Final Result Performing Organization Address City/[facility] Co de Phone Number [facility] [place] [address] [facility] * (ABNORMAL) Calcium, ionized, whole blood (12/05/2024 4:10 AM CDT) [facility] Ca, ionized, bld 4.32(L) 4.50 - 5.10 mg/dL Blood 12/05/2024 4:10 AM CDT 12/05/2024 4:24 AM CDT Meño Chandra MD LAB BLOOD ORDERABLES Final Result Performing Organization Address [facility] Co de Phone Number [facility] [place] [address] * (ABNORMAL) Blood gas, arterial (12/05/2024 4:10 AM CDT) [facility] pH, Art 7.45 7.35 - 7.45 PCO2, Arterial 28(L) 35 - 45 mmHg [facility] PO2, Arterial 81(L) 83 - 108 mmHg [facility] HCO3 Art (Calculated) 20 20 - 30 mmol/L [facility] BE, art -4 mmol/L [facility] Comment: Interpretive Data No Reference Range Established Current Interpretive Data was last revised on 2017 O2 Sat Art (Measured) 97(H) 90 - 95 % [facility] Blood 12/05/2024 4:10 AM CDT 12/05/2024 4:24 AM CDT Meño Chandra MD LAB BLOOD ORDERABLES Final Result Performing Organization Address City/[facility] Co de Phone Number [facility] [place] [address] * (ABNORMAL) POCT glucose (12/05/2024 3:07 AM CDT) Glucose, POC 255(H) 70 - 199 mg/dL Blood 12/05/2024 3:07 AM CDT 12/05/2024 3:07 AM CDT Meño Chandra MD LAB POCT ORDERABLES - DEVICE Final Result Performing Organization Address [facility] de Phone Number [facility] [place] [address] * (ABNORMAL) POCT glucose (12/05/2024 1:57 AM CDT) Glucose, POC 253(H) 70 - 199 mg/dL Blood 12/05/2024 1:57 AM CDT 12/05/2024 1:57 AM CDT Meño Chandra MD LAB POCT ORDERABLES - DEVICE Final Result Performing Organization Address [facility] de Phone Number [facility] [place] [address] * (ABNORMAL) POCT glucose (12/05/2024 1:17 AM CDT) Glucose, POC 261(H) 70 - 199 mg/dL Blood 12/05/2024 1:17 AM CDT 12/05/2024 1:17 AM CDT Meño Chandra MD LAB POCT ORDERABLES - DEVICE Final Result Performing Organization Address [facility] de Phone Number [facility] [place] [address] * Potassium, whole blood (12/05/2024 12:09 AM CDT) Potassium, bld 3.9 3.3 - 4.9 mmol/L Blood 12/05/2024 12:0 9 AM CDT 12/05/2024 12:40 AM CDT Meño Chandra MD LAB BLOOD ORDERABLES Final Result [facility] [place] [address] * (ABNORMAL) eGFR (12/05/2024 12:09 AM CDT) eGFR 32(L) >=60 mL/min/1. 73 m2 Comment: Interpretive Data Reference Interval Normal >/= 90 mL/min/1.73m2 Mildly decreased* 60 - 89 mL/min/1.73m2 Mildly to moderately decreased 45 - 59 mL/min/1.73m2 Moderately to severely decreased 30 - 44 mL/min/1.73m2 Severely decreased 15 - 29 mL/min/1.73m2 Kidney Failure < 15 mL/min/1.73m2 *Relative to young adult level Estimated glomerular filtration rate is determined by the 2020 CKD-EPI equation recommended by the National Kidney Foundation (A Unifying Approach to GFR Estimation: Recommendations of the NKF-ASK Task Force on Reassessing the Inclusion of Race in Diagnosing Kidney Disease, JASN 2020). The CKD-EPI equation should not be used for patients with unstable renal function and has not been validated in children and those over 70. Current interpretive data was last reviewed 2021. Blood 12/05/2024 12:0 9 AM CDT 12/05/2024 12:49 AM CDT Meño Chandra MD LAB BLOOD ORDERABLES Final Result [facility] [place] [address] * (ABNORMAL) CBC without differential (12/05/2024 12:09 AM CDT) WBC 10.79(H) 3.80 - 9.90 K/cumm Hgb 8.1(L) 13.0 - 17.5 g/dL [facility] Hct 23.5(L) 38.9 - 50.3 % [facility] Plt 167 150 - 400 K/cumm [facility] MPV 10.8 9.1 - 12.3 fL [facility] RBC 2.58(L) 4.30 - 5.80 M/cumm [facility] MCV 91.1 81.3 - 96.4 fL [facility] MCH 31.4 27.1 - 33.3 pg [facility] MCHC 34.5 32.3 - 35.7 g/dL [facility] RDW CV 14.6 11.1 - 14.9 % [facility] RDW SD 48.1 35.7 - 48.1 fL [facility] NRBC abs 0.00 0.00 - 0.01 K/cumm [facility] Blood 12/05/2024 12:0 9 AM CDT 12/05/2024 12:50 AM CDT Meño Chandra MD LAB BLOOD ORDERABLES Final Result [facility] Department [place] [address] * Type and screen (12/05/2024 12:09 AM CDT) Pathologist [facility] Terry, indirect Negative ABO Rh A Positive [facility] Blood 12/05/2024 12:0 9 AM CDT 12/05/2024 1:09 AM CDT Narrative [facility] - 12/05/2024 2:50 AM CDT Has the patient had Daratumumab or Isatuximab in the past 6 months?->Unknown Meño Chandra MD LAB BLOOD BANK TEST ORDERABLES Final Result [facility] [place] [address] * Phosphorus (12/05/2024 12:09 AM CDT) Phosphorus, pl 3.7 2.3 - 4.5 mg/dL Blood 12/05/2024 12:0 9 AM CDT 12/05/2024 12:49 AM CDT Meño Chandra MD LAB BLOOD ORDERABLES Final Result Performing Organization Address City/[facility]/ZIP Co de Phone Number [facility] Department [place] [address] * (ABNORMAL) Magnesium (12/05/2024 12:09 AM CDT) [facility] Magnesium 2.7(H) 1.4 - 2.5 mg/dL Blood 12/05/2024 12:0 9 AM CDT 12/05/2024 12:49 AM CDT Meño Chandra MD LAB BLOOD ORDERABLES Final Result Performing Organization Address [facility] de Phone Number [facility] [place] [address] * (ABNORMAL) Basic metabolic panel (12/05/2024 12:09 AM CDT) [facility] Sodium 138 135 - 145 mmol/L Potassium, pl 4.1 3.3 - 4.9 mmol/L [facility] Chloride 106 97 - 110 mmol/L [facility] CO2 20(L) 22 - 32 mmol/L [facility] Anion gap 12 2 - 15 mmol/L [facility] BUN 65(H) 6 - 25 mg/dL [facility] Creatinine 2.10(H) 0.80 - 1.30 mg/dL [facility] Glucose 312(H) 70 - 199 mg/dL [facility] Comment: Interpretive Data Fasting glucose >/= 126 mg/dl is diagnostic for diabetes. Fasting is defined as no caloric intake for at least 8 hours. Fasting glucose between 100 mg/dl to 125 mg/dl is diagnostic of prediabetes. In a patient with classic symptoms of hyperglycemia or hyperglycemic crisis, a random glucose >/= 200 mg/dl is diagnostic for diabetes. In the absence of unequivocal hyperglycemia, results should be confirmed by repeat testing. The classification and Diagnosis of Diabetes Diabetes Care 2021; 46: S19-S40. Current interpretive data was last revised 2022. Calcium 7.9(L) 8.5 - 10.3 mg/dL [facility] Blood 12/05/2024 12:0 9 AM CDT 12/05/2024 12:49 AM CDT Meño Chandra MD LAB BLOOD ORDERABLES Final Result Performing Organization Address City/[facility]/ZIP Co de Phone Number [facility] [place] [address] * (ABNORMAL) POCT glucose (12/05/2024 12:08 AM CDT) Glucose, POC 320(H) 70 - 199 mg/dL Blood 12/05/2024 12:0 8 AM CDT 12/05/2024 12:08 AM CDT Meño Chandra MD LAB POCT ORDERABLES - DEVICE Final Result Performing Organization Address City/[facility] Co de Phone Number [facility] [place] [address] * (ABNORMAL) POCT glucose (12/04/2024 10:11 PM CDT) Glucose, POC 323(H) 70 - 199 mg/dL Blood 12/04/2024 10:1 1 PM CDT 12/04/2024 10:11 PM CDT Meño Chandra MD LAB POCT ORDERABLES - DEVICE Final Result Performing Organization Address City/[facility] Co de Phone Number [facility] [place] [address] * (ABNORMAL) POCT glucose (12/04/2024 8:33 PM CDT) Glucose, POC 365(H) 70 - 199 mg/dL Blood 12/04/2024 8:33 PM CDT 12/04/2024 8:33 PM CDT Meño Chandra MD LAB POCT ORDERABLES - DEVICE Final Result [facility] [place] [address] * XR Chest 1 View (12/04/2024 7:50 PM CDT) Anatomical Region Laterality Modality Body, Chest N/A Computed Radiogr aphy 12/05/2024 9:10 AM CDT Impressions 12/05/2024 9:13 AM CDT First exam comparison is made to radiograph 12/02/2024 at 9:09 PM. Median sternotomy plates. Right internal jugular approach central venous catheter tip projecting over superior vena cava. Interval removal of chest tubes. Small lung volumes. Small right pleural effusion unchanged. Associated right lower lung atelectasis. Decreased hazy left lower lung opacity likely decreasing posterior layering left pleural effusion and associated atelectasis. There may be trace right lateral pneumothorax. Stable cardiomediastinal silhouette. Second exam slightly decreased now trace bilateral pleural effusion and associated mild basilar atelectasis. Otherwise no significant interval change. Dictated by: Margie Green M.D. The radiology attending physician has personally reviewed this study, and had reviewed and/or edited this written report and agrees with it. Electronically signed by: Miguel Pittman M.D. Narrative 12/05/2024 9:13 AM CDT Examination: 2 portable chests Chest one view portable 12/04/2024 11:59 AM. Chest one view portable 12/04/2024 at 7:42 PM. Procedure Note Miguel Pittman MD - 12/05/2024 Examination: 2 portable chests Chest one view portable 12/04/2024 11:59 AM. Chest one view portable 12/04/2024 at 7:42 PM. IMPRESSION: First exam comparison is made to radiograph 12/02/2024 at 9:09 PM. Median sternotomy plates. Right internal jugular approach central venous catheter tip projecting over superior vena cava. Interval removal of chest tubes. Small lung volumes. Small right pleural effusion unchanged. Associated right lower lung atelectasis. Decreased hazy left lower lung opacity likely decreasing posterior layering left pleural effusion and associated atelectasis. There may be trace right lateral pneumothorax. Stable cardiomediastinal silhouette. Second exam slightly decreased now trace bilateral pleural effusion and associated mild basilar atelectasis. Otherwise no significant interval change. Dictated by: Margie Green M.D. The radiology attending physician has personally reviewed this study, and had reviewed and/or edited this written report and agrees with it. Electronically signed by: Miguel Pittman M.D. us Scar Pastor MD IMG XR PROCEDURES Final Re sult * (ABNORMAL) POCT glucose (12/04/2024 6:08 PM CDT) Glucose, POC 341(H) 70 - 199 mg/dL Blood 12/04/2024 6:08 PM CDT 12/04/2024 6:08 PM CDT us Meño Chandra MD LAB POCT ORDERABLES - DEVICE Final Result Performing Organization Address City/State/[facility] Co or Phone Number [facility] [place] [address] * XR Chest 1 View (12/04/2024 12:20 PM CDT) Anatomical Region Laterality Modality Body, Chest N/A Computed Radiogr aphy 12/05/2024 9:10 AM CDT Impressions 12/05/2024 9:13 AM CDT First exam comparison is made to radiograph 12/02/2024 at 9:09 PM. Median sternotomy plates. Right internal jugular approach central venous catheter tip projecting over superior vena cava. Interval removal of chest tubes. Small lung volumes. Small right pleural effusion unchanged. Associated right lower lung atelectasis. Decreased hazy left lower lung opacity likely decreasing posterior layering left pleural effusion and associated atelectasis. There may be trace right lateral pneumothorax. Stable cardiomediastinal silhouette. Second exam slightly decreased now trace bilateral pleural effusion and associated mild basilar atelectasis. Otherwise no significant interval change. Dictated by: Margie Green M.D. The radiology attending physician has personally reviewed this study, and had reviewed and/or edited this written report and agrees with it. Electronically signed by: Miguel Pittman M.D. Narrative 12/05/2024 9:13 AM CDT Examination: 2 portable chests Chest one view portable 12/04/2024 11:59 AM. Chest one view portable 12/04/2024 at 7:42 PM. Procedure Note Miguel Pittman MD - 12/05/2024 Examination: 2 portable chests Chest one view portable 12/04/2024 11:59 AM. Chest one view portable 12/04/2024 at 7:42 PM. IMPRESSION: First exam comparison is made to radiograph 12/02/2024 at 9:09 PM. Median sternotomy plates. Right internal jugular approach central venous catheter tip projecting over superior vena cava. Interval removal of chest tubes. Small lung volumes. Small right pleural effusion unchanged. Associated right lower lung atelectasis. Decreased hazy left lower lung opacity likely decreasing posterior layering left pleural effusion and associated atelectasis. There may be trace right lateral pneumothorax. Stable cardiomediastinal silhouette. Second exam slightly decreased now trace bilateral pleural effusion and associated mild basilar atelectasis. Otherwise no significant interval change. Dictated by: Margie Green M.D. The radiology attending physician has personally reviewed this study, and had reviewed and/or edited this written report and agrees with it. Electronically signed by: Miguel Pittman M.D. Scar Pastor MD IMG XR PROCEDURES Final Re sult * Potassium, whole blood (12/04/2024 11:37 AM CDT) Potassium, bld 4.3 3.3 - 4.9 mmol/L Blood 12/04/2024 11:3 7 AM CDT 12/04/2024 11:41 AM CDT Meño Chandra MD LAB BLOOD ORDERABLES Final Result Performing Organization Address [facility] Co de Phone Number [facility] [place] [address] * (ABNORMAL) POCT glucose (12/04/2024 11:37 AM CDT) Glucose, POC 247(H) 70 - 199 mg/dL Blood 12/04/2024 11:3 7 AM CDT 12/04/2024 11:37 AM CDT Meño Chandra MD LAB POCT ORDERABLES - DEVICE Final Result Performing Organization Address [facility] Co de Phone Number [facility] [place] [place] [address] * POCT glucose (12/04/2024 9:56 AM CDT) Glucose, POC 130 70 - 199 mg/dL Blood 12/04/2024 9:56 AM CDT 12/04/2024 9:56 AM CDT Meño Chandra MD LAB POCT ORDERABLES - DEVICE Final Result Performing Organization Address [facility] Co de Phone Number [facility] [place] [address] * POCT glucose (12/04/2024 8:10 AM CDT) Glucose, POC 126 70 - 199 mg/dL Blood 12/04/2024 8:10 AM CDT 12/04/2024 8:10 AM CDT us Meño Chandra MD LAB POCT ORDERABLES - DEVICE Final Result [facility] [place] [address] * Critical Care (12/04/2024 8:00 AM CDT) Narrative Estuardo King MD - 12/04/2024 8:00 AM CDT Estuardo King MD 12/06/2024 6:15 PM Critical Care Performed by: Estuardo King MD Authorized by: Estuardo King MD CRITICAL CARE: Team: 83 CTICU Shift: AM Level of Billing: Critical Care My time spent with this patient was 60 minutes: Critical Provider Statement: I have seen and examined the patient on this day of service. I have reviewed and confirmed the history, physical exam, laboratory and radiologic data as documented in the signed ICU note. I have reviewed and discussed my treatment plan with the ICU team and other medical/home service consultant staff, making frequent assessments and decisions regarding this patient's complex medical care. Critical Care time was exclusive of time spent performing separately billed procedures, treating other patients, and teaching. This time was in addition to and separate from critical care provided by other practitioners in my group on this day of service. Critical Care was necessary to treat or prevent imminent or life-threatening deterioration of the following conditions: Acute pain/acute postoperative pain Tachy/anat arrhythmic event and Atrial fibrillation with rapid ventricular rate Atelectasis Acute kidney injury, Hypo- or Hyperglycemia and Acute electrolyte derangement Severe undifferentiated anemia This time was spent by me doing the following: Acute pain control Cardiac pacing and Initiation/active titration of anti-arrhythmic or rate controlling agent Active and frequent reassessment of respiratory status and oxygen requirements and Incentive spirometry, pulmonary toilet Active and frequent monitoring of intake/output and volumen status Active repletion of electrolytes I spent time reviewing and interpreting data from bedside monitors, laboratory results, and imaging, I spent time discussing the management of this critically ill patient with consultants and the medical staff and I spent time documenting in the medical record us Estuardo King MD IN CLINIC/BEDSIDE ORDERABLES Final Result * POCT glucose (12/04/2024 6:56 AM CDT) Glucose, POC 128 70 - 199 mg/dL Blood 12/04/2024 6:56 AM CDT 12/04/2024 6:56 AM CDT Meño Chandra MD LAB POCT ORDERABLES - DEVICE Final Result Performing Organization Address [facility] Co de Phone Number [facility] [place] [address] * POCT glucose (12/04/2024 5:52 AM CDT) Glucose, POC 111 70 - 199 mg/dL Blood 12/04/2024 5:52 AM CDT 12/04/2024 5:52 AM CDT Meño Chandra MD LAB POCT ORDERABLES - DEVICE Final Result Performing Organization Address [facility] de Phone Number [facility] [place] [address] * Potassium, whole blood (12/04/2024 4:11 AM CDT) [facility] Potassium, bld 4.2 3.3 - 4.9 mmol/L Blood 12/04/2024 4:11 AM CDT 12/04/2024 4:22 AM CDT Meño Chandra MD LAB BLOOD ORDERABLES Final Result Performing Organization Address [facility] de Phone Number [facility] [place] [address] * (ABNORMAL) Blood gas, arterial (12/04/2024 4:11 AM CDT) Pathologist [facility] pH, Art 7.40 7.35 - 7.45 PCO2, Arterial 34(L) 35 - 45 mmHg [facility] PO2, Arterial 124(H) 83 - 108 mmHg [facility] HCO3 Art (Calculated) 22 20 - 30 mmol/L [facility] BE, art -3 mmol/L [facility] Comment: Interpretive Data No Reference Range Established Current Interpretive Data was last revised on 2017 O2 Sat Art (Measured) 99(H) 90 - 95 % [facility] Blood 12/04/2024 4:11 AM CDT 12/04/2024 4:22 AM CDT Meño Chandra MD LAB BLOOD ORDERABLES Final Result Performing Organization Address [facility] Co de Phone Number [facility] [place] [address] * POCT glucose (12/04/2024 4:07 AM CDT) Glucose, POC 151 70 - 199 mg/dL Blood 12/04/2024 4:07 AM CDT 12/04/2024 4:07 AM CDT Meño Chandra MD LAB POCT ORDERABLES - DEVICE Final Result Performing Organization Address [facility] Co de Phone Number [facility] [place] [address] * POCT glucose (12/04/2024 2:06 AM CDT) Glucose, POC 177 70 - 199 mg/dL Blood 12/04/2024 2:06 AM CDT 12/04/2024 2:06 AM CDT Meño Chandra MD LAB POCT ORDERABLES - DEVICE Final Result Performing Organization Address [facility] Co de Phone Number [facility] [place] [address] * Potassium, whole blood (12/04/2024 12:01 AM CDT) Potassium, bld 4.3 3.3 - 4.9 mmol/L Blood 12/04/2024 12:0 1 AM CDT 12/04/2024 12:14 AM CDT Meño Chandra MD LAB BLOOD ORDERABLES Final Result Performing Organization Address City/[facility]/ZIP Co de Phone Number [facility] [place] [address] * (ABNORMAL) eGFR (12/04/2024 12:01 AM CDT) eGFR 29(L) >=60 mL/min/1. 73 m2 Comment: Interpretive Data Reference Interval Normal >/= 90 mL/min/1.73m2 Mildly decreased* 60 - 89 mL/min/1.73m2 Mildly to moderately decreased 45 - 59 mL/min/1.73m2 Moderately to severely decreased 30 - 44 mL/min/1.73m2 Severely decreased 15 - 29 mL/min/1.73m2 Kidney Failure < 15 mL/min/1.73m2 *Relative to young adult level Estimated glomerular filtration rate is determined by the 2020 CKD-EPI equation recommended by the National Kidney Foundation (A Unifying Approach to GFR Estimation: Recommendations of the NKF-ASK Task Force on Reassessing the Inclusion of Race in Diagnosing Kidney Disease, JASN 2020). The CKD-EPI equation should not be used for patients with unstable renal function and has not been validated in children and those over 70. Current interpretive data was last reviewed 2021. Blood 12/04/2024 12:0 1 AM CDT 12/04/2024 12:36 AM CDT Meño Chandra MD LAB BLOOD ORDERABLES Final Result Performing Organization Address [facility]/ZIP Co de Phone Number [facility] [place] [place] [address] * POCT glucose (12/04/2024 12:01 AM CDT) Pathologist [facility] Glucose, POC 199 70 - 199 mg/dL Blood 12/04/2024 12:0 1 AM CDT 12/04/2024 12:01 AM CDT Meño Chandra MD LAB POCT ORDERABLES - DEVICE Final Result Performing Organization Address [facility]/ZIP Co de Phone Number [facility] Department [place] [place] [address] * (ABNORMAL) CBC without differential (12/04/2024 12:01 AM CDT) [facility] WBC 13.63(H) 3.80 - 9.90 K/cumm Hgb 8.3(L) 13.0 - 17.5 g/dL [facility] Hct 24.7(L) 38.9 - 50.3 % [facility] Plt 171 150 - 400 K/cumm [facility] MPV 10.9 9.1 - 12.3 fL [facility] RBC 2.65(L) 4.30 - 5.80 M/cumm [facility] MCV 93.2 81.3 - 96.4 fL [facility] MCH 31.3 27.1 - 33.3 pg [facility] MCHC 33.6 32.3 - 35.7 g/dL [facility] RDW CV 14.9 11.1 - 14.9 % [facility] RDW SD 51.1(H) 35.7 - 48.1 fL [facility] NRBC abs 0.00 0.00 - 0.01 K/cumm [facility] Blood 12/04/2024 12:0 1 AM CDT 12/04/2024 12:36 AM CDT Meño Chandra MD LAB BLOOD ORDERABLES Final Result [facility] [place] [address] * Phosphorus (12/04/2024 12:01 AM CDT) Pathologist [facility] Phosphorus, pl 3.2 2.3 - 4.5 mg/dL Blood 12/04/2024 12:0 1 AM CDT 12/04/2024 12:36 AM CDT Meño Chandra MD LAB BLOOD ORDERABLES Final Result Performing Organization Address [facility] de Phone Number [facility] [place] [address] * (ABNORMAL) Magnesium (12/04/2024 12:01 AM CDT) [facility] Magnesium 2.9(H) 1.4 - 2.5 mg/dL Blood 12/04/2024 12:0 1 AM CDT 12/04/2024 12:36 AM CDT Result [facility] Meño Chandra MD LAB BLOOD ORDERABLES Final Result Performing Organization Address [facility] de Phone Number [facility] [place] [address] * (ABNORMAL) Blood gas, arterial (12/04/2024 12:01 AM CDT) [facility] pH, Art 7.43 7.35 - 7.45 PCO2, Arterial 29(L) 35 - 45 mmHg [facility] PO2, Arterial 84 83 - 108 mmHg [facility] HCO3 Art (Calculated) 20 20 - 30 mmol/L [facility] BE, art -4 mmol/L [facility] Comment: Interpretive Data No Reference Range Established Current Interpretive Data was last revised on 2017 O2 Sat Art (Measured) 97(H) 90 - 95 % [facility] Blood 12/04/2024 12:0 1 AM CDT 12/04/2024 12:14 AM CDT Meño Chandra MD LAB BLOOD ORDERABLES Final Result [facility] [place] [address] * (ABNORMAL) Basic metabolic panel (12/04/2024 12:01 AM CDT) Sodium 142 135 - 145 mmol/L Potassium, pl 4.3 3.3 - 4.9 mmol/L [facility] Chloride 111(H) 97 - 110 mmol/L [facility] CO2 20(L) 22 - 32 mmol/L [facility] Anion gap 11 2 - 15 mmol/L [facility] BUN 46(H) 6 - 25 mg/dL [facility] Creatinine 2.26(H) 0.80 - 1.30 mg/dL [facility] Glucose 180 70 - 199 mg/dL [facility] Comment: Interpretive Data Fasting glucose >/= 126 mg/dl is diagnostic for diabetes. Fasting is defined as no caloric intake for at least 8 hours. Fasting glucose between 100 mg/dl to 125 mg/dl is diagnostic of prediabetes. In a patient with classic symptoms of hyperglycemia or hyperglycemic crisis, a random glucose >/= 200 mg/dl is diagnostic for diabetes. In the absence of unequivocal hyperglycemia, results should be confirmed by repeat testing. The classification and Diagnosis of Diabetes Diabetes Care 2021; 46: S19-S40. Current interpretive data was last revised 2022. Calcium 8.8 8.5 - 10.3 mg/dL [facility] Blood 12/04/2024 12:0 1 AM CDT 12/04/2024 12:36 AM CDT Meño Chandra MD LAB BLOOD ORDERABLES Final Result [facility] Department [place] [address] * (ABNORMAL) POCT glucose (12/03/2024 11:06 PM CDT) Glucose, POC 200(H) 70 - 199 mg/dL Blood 12/03/2024 11:0 6 PM CDT 12/03/2024 11:06 PM CDT Meño Chandra MD LAB POCT ORDERABLES - DEVICE Final Result Performing Organization Address [facility] Co de Phone Number [facility] [place] [address] * (ABNORMAL) POCT glucose (12/03/2024 10:16 PM CDT) Glucose, POC 212(H) 70 - 199 mg/dL Blood 12/03/2024 10:1 6 PM CDT 12/03/2024 10:16 PM CDT Meño Chandra MD LAB POCT ORDERABLES - DEVICE Final Result Performing Organization Address [facility] de Phone Number [facility] [place] [address] * (ABNORMAL) POCT glucose (12/03/2024 9:07 PM CDT) Glucose, POC 204(H) 70 - 199 mg/dL Blood 12/03/2024 9:07 PM CDT 12/03/2024 9:07 PM CDT Meño Chandra MD LAB POCT ORDERABLES - DEVICE Final Result Performing Organization Address [facility] de Phone Number [facility] [place] [address] * (ABNORMAL) POCT glucose (12/03/2024 8:03 PM CDT) Glucose, POC 239(H) 70 - 199 mg/dL Blood 12/03/2024 8:03 PM CDT 12/03/2024 8:03 PM CDT Meño Chandra MD LAB POCT ORDERABLES - DEVICE Final Result Performing Organization Address [facility] Co de Phone Number [facility] [place] [address] * (ABNORMAL) POCT glucose (12/03/2024 7:05 PM CDT) Glucose, POC 264(H) 70 - 199 mg/dL Blood 12/03/2024 7:05 PM CDT 12/03/2024 7:05 PM CDT Meño Chandra MD LAB POCT ORDERABLES - DEVICE Final Result Performing Organization Address [facility] Co de Phone Number [facility] [place] [address] * Potassium, whole blood (12/03/2024 6:19 PM CDT) Potassium, bld 4.4 3.3 - 4.9 mmol/L Blood 12/03/2024 6:19 PM CDT 12/03/2024 6:28 PM CDT Meño Chandra MD LAB BLOOD ORDERABLES Final Result Performing Organization Address [facility] Co de Phone Number [facility] Department [place] [address] * (ABNORMAL) POCT glucose (12/03/2024 6:18 PM CDT) Glucose, POC 259(H) 70 - 199 mg/dL Blood 12/03/2024 6:18 PM CDT 12/03/2024 6:18 PM CDT Meño Chandra MD LAB POCT ORDERABLES - DEVICE Final Result Performing Organization Address [facility]/ZIP Co de Phone Number [facility] [place] [address] * (ABNORMAL) POCT glucose (12/03/2024 5:00 PM CDT) [facility] Glucose, POC 215(H) 70 - 199 mg/dL Blood 12/03/2024 5:00 PM CDT 12/03/2024 5:00 PM CDT Meño Chandra MD LAB POCT ORDERABLES - DEVICE Final Result [facility] [place] [address] * (ABNORMAL) eGFR (12/03/2024 3:12 PM CDT) [facility] eGFR 31(L) >=60 mL/min/1. 73 m2 Comment: Interpretive Data Reference Interval Normal >/= 90 mL/min/1.73m2 Mildly decreased* 60 - 89 mL/min/1.73m2 Mildly to moderately decreased 45 - 59 mL/min/1.73m2 Moderately to severely decreased 30 - 44 mL/min/1.73m2 Severely decreased 15 - 29 mL/min/1.73m2 Kidney Failure < 15 mL/min/1.73m2 *Relative to young adult level Estimated glomerular filtration rate is determined by the 2020 CKD-EPI equation recommended by the National Kidney Foundation (A Unifying Approach to GFR Estimation: Recommendations of the NKF-ASK Task Force on Reassessing the Inclusion of Race in Diagnosing Kidney Disease, JASN 2020). The CKD-EPI equation should not be used for patients with unstable renal function and has not been validated in children and those over 70. Current interpretive data was last reviewed 2021. Blood 12/03/2024 3:12 PM CDT 12/03/2024 3:29 PM CDT Meño Chandra MD LAB BLOOD ORDERABLES Final Result [facility] Department [place] [address] * (ABNORMAL) Basic metabolic panel (12/03/2024 3:12 PM CDT) [facility] Sodium 143 135 - 145 mmol/L Potassium, pl 5.0(H) 3.3 - 4.9 mmol/L [facility] Chloride 111(H) 97 - 110 mmol/L [facility] CO2 20(L) 22 - 32 mmol/L [facility] Anion gap 12 2 - 15 mmol/L [facility] BUN 39(H) 6 - 25 mg/dL [facility] Creatinine 2.17(H) 0.80 - 1.30 mg/dL [facility] Glucose 228(H) 70 - 199 mg/dL [facility] Comment: Interpretive Data Fasting glucose >/= 126 mg/dl is diagnostic for diabetes. Fasting is defined as no caloric intake for at least 8 hours. Fasting glucose between 100 mg/dl to 125 mg/dl is diagnostic of prediabetes. In a patient with classic symptoms of hyperglycemia or hyperglycemic crisis, a random glucose >/= 200 mg/dl is diagnostic for diabetes. In the absence of unequivocal hyperglycemia, results should be confirmed by repeat testing. The classification and Diagnosis of Diabetes Diabetes Care 2021; 46: S19-S40. Current interpretive data was last revised 2022. Calcium 8.9 8.5 - 10.3 mg/dL [facility] Blood 12/03/2024 3:12 PM CDT 12/03/2024 3:29 PM CDT us Meño Chandra MD LAB BLOOD ORDERABLES Final Result [facility] [place] [address] * (ABNORMAL) POCT glucose (12/03/2024 3:11 PM CDT) [facility] Glucose, POC 236(H) 70 - 199 mg/dL Blood 12/03/2024 3:11 PM CDT 12/03/2024 3:11 PM CDT Meño Chandra MD LAB POCT ORDERABLES - DEVICE Final Result Performing Organization Address [facility] Co de Phone Number [facility] [place] [address] * (ABNORMAL) POCT glucose (12/03/2024 2:19 PM CDT) Glucose, POC 240(H) 70 - 199 mg/dL Blood 12/03/2024 2:19 PM CDT 12/03/2024 2:19 PM CDT Meño Chandra MD LAB POCT ORDERABLES - DEVICE Final Result Performing Organization Address [facility] Phone Number [facility] [place] [address] * POCT glucose (12/03/2024 1:01 PM CDT) Glucose, POC 105 70 - 199 mg/dL Blood 12/03/2024 1:01 PM CDT 12/03/2024 1:01 PM CDT Result [facility] Meño Chandra MD LAB POCT ORDERABLES - DEVICE Final Result Performing Organization Address [facility] de Phone Number [facility] [place] [address] * POCT glucose (12/03/2024 12:10 PM CDT) Glucose, POC 150 70 - 199 mg/dL Blood 12/03/2024 12:1 0 PM CDT 12/03/2024 12:10 PM CDT Meño Chandra MD LAB POCT ORDERABLES - DEVICE Final Result Performing Organization Address [facility]/ZIP Co de Phone Number [facility] [place] [address] * Potassium, whole blood (12/03/2024 12:05 PM CDT) Potassium, bld 3.9 3.3 - 4.9 mmol/L Blood 12/03/2024 12:0 5 PM CDT 12/03/2024 12:21 PM CDT Meño Chandra MD LAB BLOOD [place] [address] * POCT glucose (12/03/2024 10:53 AM CDT) Glucose, POC 112 70 - 199 mg/dL Blood 12/03/2024 10:5 3 AM CDT 12/03/2024 10:53 AM CDT Meño Chandra MD LAB POCT ORDERABLES - [place] [address] * Potassium, whole blood (12/03/2024 8:03 AM CDT) Potassium, bld 4.0 3.3 - 4.9 mmol/L Blood 12/03/2024 8:03 AM CDT 12/03/2024 8:25 AM CDT Meño Chandra MD LAB BLOOD ORDERABLES Final Result [facility] [place] [address] * POCT glucose (12/03/2024 8:03 AM CDT) Glucose, POC 116 70 - 199 mg/dL Blood 12/03/2024 8:03 AM CDT 12/03/2024 8:03 AM CDT us Meño Chandra MD LAB POCT ORDERABLES - DEVICE Final Result [facility] Department [place] [address] * Critical Care (12/03/2024 8:00 AM CDT) Narrative Estuardo King MD - 12/03/2024 8:00 AM CDT Estuardo King MD 12/04/2024 9:22 AM Critical Care Performed by: Estuardo King MD Authorized by: Estuardo King MD CRITICAL CARE: Team: 83 CTICU Shift: AM Level of Billing: Critical Care My time spent with this patient was 75 minutes: Critical Provider Statement: I have seen and examined the patient on this day of service. I have reviewed and confirmed the history, physical exam, laboratory and radiologic data as documented in the signed ICU note. I have reviewed and discussed my treatment plan with the ICU team and other medical/home service consultant staff, making frequent assessments and decisions regarding this patient's complex medical care. Critical Care time was exclusive of time spent performing separately billed procedures, treating other patients, and teaching. This time was in addition to and separate from critical care provided by other practitioners in my group on this day of service. Critical Care was necessary to treat or prevent imminent or life-threatening deterioration of the following conditions: Acute pain/acute postoperative pain and Encephalopathy/altered mental status Atrial fibrillation with rapid ventricular rate Atelectasis and Acute respiratory insufficiency Acute electrolyte derangement, Acute kidney injury and Hypo- or Hyperglycemia Acute blood loss anemia This time was spent by me doing the following: Acute pain control Cardiac pacing, Initiation/active titration of vasoactive medications and Initiation/active titration of anti-arrhythmic or rate controlling agent Active and frequent reassessment of respiratory status and oxygen requirements, Non-invasive positive pressure ventilator management and Incentive spirometry, pulmonary toilet Active and frequent monitoring of intake/output and volumen status and Glycemic control Active repletion of electrolytes and Active diuresis I spent time reviewing and interpreting data from bedside monitors, laboratory results, and imaging, I spent time discussing the management of this critically ill patient with consultants and the medical staff and I spent time documenting in the medical record us Estuardo King MD IN CLINIC/BEDSIDE ORDERABLES Final Result * POCT glucose (12/03/2024 6:12 AM CDT) Glucose, POC 115 70 - 199 mg/dL Blood 12/03/2024 6:12 AM CDT 12/03/2024 6:12 AM CDT Meño Chandra MD LAB POCT ORDERABLES - DEVICE Final Result Performing Organization Address [facility] de Phone Number [facility] [place] [address] * (ABNORMAL) Blood gas, arterial (12/03/2024 6:12 AM CDT) [facility] pH, Art 7.40 7.35 - 7.45 PCO2, Arterial 31(L) 35 - 45 mmHg [facility] PO2, Arterial 124(H) 83 - 108 mmHg [facility] HCO3 Art (Calculated) 20 20 - 30 mmol/L [facility] BE, art -5 mmol/L [facility] Comment: Interpretive Data No Reference Range Established Current Interpretive Data was last revised on 2017 O2 Sat Art (Measured) 98(H) 90 - 95 % [facility] Blood 12/03/2024 6:12 AM CDT 12/03/2024 6:15 AM CDT Meño Chandra MD LAB BLOOD ORDERABLES Final Result Performing Organization Address [facility] Co de Phone Number [facility] [place] [address] * POCT glucose (12/03/2024 5:03 AM CDT) Glucose, POC 132 70 - 199 mg/dL Blood 12/03/2024 5:03 AM CDT 12/03/2024 5:03 AM CDT Meño Chandra MD LAB POCT ORDERABLES - DEVICE Final Result Performing Organization Address [facility] Co de Phone Number [facility] [place] [address] * POCT glucose (12/03/2024 3:04 AM CDT) Glucose, POC 137 70 - 199 mg/dL Blood 12/03/2024 3:04 AM CDT 12/03/2024 3:04 AM CDT Meño Chandra MD LAB POCT ORDERABLES - DEVICE Final Result Performing Organization Address [facility] Co de Phone Number [facility] [place] [address] * POCT glucose (12/03/2024 2:13 AM CDT) Glucose, POC 137 70 - 199 mg/dL Blood 12/03/2024 2:13 AM CDT 12/03/2024 2:13 AM CDT Meño Chandra MD LAB POCT ORDERABLES - DEVICE Final Result Performing Organization Address [facility] [place] [address] * POCT glucose (12/03/2024 1:19 AM CDT) Glucose, POC 136 70 - 199 mg/dL Blood 12/03/2024 1:19 AM CDT 12/03/2024 1:19 AM CDT Meño Chandra MD LAB POCT ORDERABLES - DEVICE Final Result Performing Organization Address [facility] de Phone Number [facility] [address] * Oxyhemoglobin, central venous (12/03/2024 12:03 AM CDT) Oxyhemoglobin, CV 63.1 % Comment: Interpretive Data No reference range established. Current interpretive data was last revised 2019. Blood 12/03/2024 12:0 3 AM CDT 12/03/2024 12:14 AM CDT Meño Chandra MD LAB BLOOD ORDERABLES Final Result Performing Organization Address [facility] de Phone Number [facility] [place] [address] * Potassium, whole blood (12/03/2024 12:03 AM CDT) Pathologist [facility] Potassium, bld 4.6 3.3 - 4.9 mmol/L Blood 12/03/2024 12:0 3 AM CDT 12/03/2024 12:14 AM CDT Result [facility] Meño Chandra MD LAB BLOOD ORDERABLES Final Result Performing Organization Address [facility] de Phone Number [facility] [address] * (ABNORMAL) eGFR (12/03/2024 12:03 AM CDT) eGFR 37(L) >=60 mL/min/1. 73 m2 Comment: Interpretive Data Reference Interval Normal >/= 90 mL/min/1.73m2 Mildly decreased* 60 - 89 mL/min/1.73m2 Mildly to moderately decreased 45 - 59 mL/min/1.73m2 Moderately to severely decreased 30 - 44 mL/min/1.73m2 Severely decreased 15 - 29 mL/min/1.73m2 Kidney Failure < 15 mL/min/1.73m2 *Relative to young adult level Estimated glomerular filtration rate is determined by the 2020 CKD-EPI equation recommended by the National Kidney Foundation (A Unifying Approach to GFR Estimation: Recommendations of the NKF-ASK Task Force on Reassessing the Inclusion of Race in Diagnosing Kidney Disease, JASN 202). The CKD-EPI equation should not be used for patients with unstable renal function and has not been validated in children and those over 70. Current interpretive data was last reviewed 2021. Blood 12/03/2024 12:0 3 AM CDT 12/03/2024 12:20 AM CDT us Meño Chandra MD LAB BLOOD ORDERABLES Final Result [facility] [place] [address] * (ABNORMAL) CBC without differential (12/03/2024 12:03 AM CDT) WBC 15.28(H) 3.80 - 9.90 K/cumm Hgb 8.9(L) 13.0 - 17.5 g/dL [facility] Hct 25.6(L) 38.9 - 50.3 % [facility] Plt 192 150 - 400 K/cumm [facility] MPV 10.7 9.1 - 12.3 fL [facility] RBC 2.86(L) 4.30 - 5.80 M/cumm [facility] MCV 89.5 81.3 - 96.4 fL [facility] MCH 31.1 27.1 - 33.3 pg [facility] MCHC 34.8 32.3 - 35.7 g/dL [facility] RDW CV 14.8 11.1 - 14.9 % [facility] RDW SD 47.8 35.7 - 48.1 fL [facility] NRBC abs 0.00 0.00 - 0.01 K/cumm [facility] Blood 12/03/2024 12:0 3 AM CDT 12/03/2024 12:20 AM CDT Meño Chandra MD LAB BLOOD ORDERABLES Final Result Performing Organization Address [facility] Co de Phone Number [facility] [place] [address] * Phosphorus (12/03/2024 12:03 AM CDT) Pathologist [facility] Phosphorus, pl 3.3 2.3 - 4.5 mg/dL Blood 12/03/2024 12:0 3 AM CDT 12/03/2024 12:20 AM CDT Meño Chandra MD LAB BLOOD ORDERABLES Final Result Performing Organization Address [facility] Co de Phone Number [facility] [place] [address] * Magnesium (12/03/2024 12:03 AM CDT) Pathologist [facility] Magnesium 2.3 1.4 - 2.5 mg/dL Blood 12/03/2024 12:0 3 AM CDT 12/03/2024 12:20 AM CDT Meño Chandra MD LAB BLOOD ORDERABLES Final Result Performing Organization Address [facility] [place] [address] * (ABNORMAL) Blood gas, arterial (12/03/2024 12:03 AM CDT) pH, Art 7.39 7.35 - 7.45 PCO2, Arterial 33(L) 35 - 45 mmHg [facility] PO2, Arterial 125(H) 83 - 108 mmHg [facility] HCO3 Art (Calculated) 21 20 - 30 mmol/L [facility] BE, art -4 mmol/L [facility] Comment: Interpretive Data No Reference Range Established Current Interpretive Data was last revised on 2017 O2 Sat Art (Measured) 99(H) 90 - 95 % [facility] Blood 12/03/2024 12:0 3 AM CDT 12/03/2024 12:14 AM CDT Meño Chandra MD LAB BLOOD ORDERABLES Final Result [facility] Department [place] [address] * (ABNORMAL) Basic metabolic panel (12/03/2024 12:03 AM CDT) Sodium 143 135 - 145 mmol/L Potassium, pl 4.6 3.3 - 4.9 mmol/L [facility] Chloride 112(H) 97 - 110 mmol/L [facility] CO2 22 22 - 32 mmol/L [facility] Anion gap 9 2 - 15 mmol/L [facility] BUN 29(H) 6 - 25 mg/dL [facility] Creatinine 1.85(H) 0.80 - 1.30 mg/dL [facility] Glucose 161 70 - 199 mg/dL [facility] Comment: Interpretive Data Fasting glucose >/= 126 mg/dl is diagnostic for diabetes. Fasting is defined as no caloric intake for at least 8 hours. Fasting glucose between 100 mg/dl to 125 mg/dl is diagnostic of prediabetes. In a patient with classic symptoms of hyperglycemia or hyperglycemic crisis, a random glucose >/= 200 mg/dl is diagnostic for diabetes. In the absence of unequivocal hyperglycemia, results should be confirmed by repeat testing. The classification and Diagnosis of Diabetes Diabetes Care 2021; 46: S19-S40. Current interpretive data was last revised 2022. Calcium 8.9 8.5 - 10.3 mg/dL [facility] Blood 12/03/2024 12:0 3 AM CDT 12/03/2024 12:20 AM CDT Meño Chandra MD LAB BLOOD ORDERABLES Final Result [facility] [place] [address] * POCT glucose (12/03/2024 12:02 AM CDT) Glucose, POC 159 70 - 199 mg/dL Blood 12/03/2024 12:0 2 AM CDT 12/03/2024 12:02 AM CDT Meño Chandra MD LAB POCT ORDERABLES - DEVICE Final Result Performing Organization Address [facility]/ZIP Co de Phone Number [facility] [place] [address] * POCT glucose (12/02/2024 11:07 PM CDT) Glucose, POC 166 70 - 199 mg/dL Blood 12/02/2024 11:0 7 PM CDT 12/02/2024 11:07 PM CDT Meño Chandra MD LAB POCT ORDERABLES - DEVICE Final Result Performing Organization Address City/[facility]/ZIP Co de Phone Number [facility] [place] [address] * POCT glucose (12/02/2024 10:06 PM CDT) Glucose, POC 166 70 - 199 mg/dL Blood 12/02/2024 10:0 6 PM CDT 12/02/2024 10:06 PM CDT Meño Chandra MD LAB POCT ORDERABLES - DEVICE Final Result Performing Organization Address City/[facility]/ZIP Co de Phone Number [facility] [place] [address] * XR Chest 1 View - in PM (12/02/2024 9:10 PM CDT) Anatomical Region Laterality Modality Body, Chest N/A Digital Radiogra phy 12/03/2024 11:1 8 AM CDT Impressions 12/03/2024 11:18 AM CDT Comparison to 12/02/2024. Interval extubation and removal of gastric tube. Right IJ CVC with tip over the SVC remains. There is a left-sided chest tube. Right-sided chest tube. Heart and mediastinum are unchanged status post median sternotomy. Patient is slightly rotated to the left. There is some partial atelectasis in the left lung base and possibly trace bilateral pleural effusions, similar to prior. No pneumothorax seen. Electronically signed by: Miguel Pittman M.D. Narrative 12/03/2024 11:18 AM CDT EXAMINATION: 1 view chest radiograph Procedure Note Miguel Pittman MD - 12/03/2024 EXAMINATION: 1 view chest radiograph IMPRESSION: Comparison to 12/02/2024. Interval extubation and removal of gastric tube. Right IJ CVC with tip over the SVC remains. There is a left-sided chest tube. Right-sided chest tube. Heart and mediastinum are unchanged status post median sternotomy. Patient is slightly rotated to the left. There is some partial atelectasis in the left lung base and possibly trace bilateral pleural effusions, similar to prior. No pneumothorax seen. Electronically signed by: Miguel Pittman M.D. Meño Chandra MD IMG XR PROCEDURES Fi nal Result * (ABNORMAL) Blood gas, arterial (12/02/2024 8:56 PM CDT) pH, Art 7.40 7.35 - 7.45 PCO2, Arterial 31(L) 35 - 45 mmHg [facility] PO2, Arterial 136(H) 83 - 108 mmHg [facility] HCO3 Art (Calculated) 20 20 - 30 mmol/L [facility] BE, art -5 mmol/L [facility] Comment: Interpretive Data No Reference Range Established Current Interpretive Data was last revised on 2017 O2 Sat Art (Measured) 99(H) 90 - 95 % [facility] Blood 12/02/2024 8:56 PM CDT 12/02/2024 9:08 PM CDT Result [facility] Meño Chandra MD LAB BLOOD ORDERABLES Final Result Performing Organization Address [facility] Co de Phone Number [facility] [place] [address] * POCT glucose (12/02/2024 8:54 PM CDT) Glucose, POC 159 70 - 199 mg/dL Blood 12/02/2024 8:54 PM CDT 12/02/2024 8:54 PM CDT Result [facility] Meño Chandra MD LAB POCT ORDERABLES - DEVICE Final Result Performing Organization Address [facility] Co de Phone Number [facility] [place] [address] * POCT glucose (12/02/2024 7:09 PM CDT) Glucose, POC 163 70 - 199 mg/dL Blood 12/02/2024 7:09 PM CDT 12/02/2024 7:09 PM CDT Result [facility] Meño Chandra MD LAB POCT ORDERABLES - DEVICE Final Result Performing Organization Address [facility] Co de Phone Number [facility] [place] [address] * POCT glucose (12/02/2024 6:06 PM CDT) Glucose, POC 187 70 - 199 mg/dL Blood 12/02/2024 6:06 PM CDT 12/02/2024 6:06 PM CDT Result [facility] Meño Chandra MD LAB POCT ORDERABLES - DEVICE Final Result [facility] [place] [address] * (ABNORMAL) Blood gas, arterial (12/02/2024 5:36 PM CDT) pH, Art 7.38 7.35 - 7.45 PCO2, Arterial 33(L) 35 - 45 mmHg [facility] PO2, Arterial 70(L) 83 - 108 mmHg [facility] HCO3 Art (Calculated) 20 20 - 30 mmol/L [facility] BE, art -4 mmol/L [facility] Comment: Interpretive Data No Reference Range Established Current Interpretive Data was last revised on 2017 O2 Sat Art (Measured) 94 90 - 95 % [facility] Blood 12/02/2024 5:36 PM CDT 12/02/2024 5:44 PM CDT Meño Chandra MD LAB BLOOD ORDERABLES Final Result [facility] [place] [address] * POCT glucose (12/02/2024 5:14 PM CDT) Glucose, POC 158 70 - 199 mg/dL Blood 12/02/2024 5:14 PM CDT 12/02/2024 5:14 PM CDT Meño Chandra MD LAB POCT ORDERABLES - DEVICE Final Result [facility] [place] [address] * POCT glucose (12/02/2024 4:06 PM CDT) Glucose, POC 107 70 - 199 mg/dL Blood 12/02/2024 4:06 PM CDT 12/02/2024 4:06 PM CDT Meño Chandra MD LAB POCT ORDERABLES - DEVICE Final Result Performing Organization Address [facility] Co de Phone Number [facility] [place] [address] * POCT glucose (12/02/2024 3:22 PM CDT) Glucose, POC 124 70 - 199 mg/dL Blood 12/02/2024 3:22 PM CDT 12/02/2024 3:22 PM CDT Meño Chandra MD LAB POCT ORDERABLES - DEVICE Final Result Performing Organization Address [facility] Co de Phone Number [facility] [place] [address] * POCT glucose (12/02/2024 1:47 PM CDT) Glucose, POC 138 70 - 199 mg/dL Blood 12/02/2024 1:47 PM CDT 12/02/2024 1:47 PM CDT Result [facility] Meño Chandra MD LAB POCT ORDERABLES - DEVICE Final Result Performing Organization Address [facility] [place] [address] * (ABNORMAL) Blood gas, arterial (12/02/2024 1:46 PM CDT) pH, Art 7.39 7.35 - 7.45 PCO2, Arterial 34(L) 35 - 45 mmHg [facility] PO2, Arterial 90 83 - 108 mmHg [facility] HCO3 Art (Calculated) 21 20 - 30 mmol/L [facility] BE, art -4 mmol/L [facility] Comment: Interpretive Data No Reference Range Established Current Interpretive Data was last revised on 2017 O2 Sat Art (Measured) 98(H) 90 - 95 % [facility] Blood 12/02/2024 1:46 PM CDT 12/02/2024 1:54 PM CDT Result [facility] Meño Chandra MD LAB BLOOD ORDERABLES Final Result Performing Organization Address [facility]/ZIP Co de Phone Number [facility] [place] [address] * POCT glucose (12/02/2024 1:00 PM CDT) Glucose, POC 122 70 - 199 mg/dL Blood 12/02/2024 1:00 PM CDT 12/02/2024 1:00 PM CDT Meño Chandra MD LAB POCT ORDERABLES - DEVICE Final Result Performing Organization Address [facility] Co de Phone Number [facility] [place] [address] * POCT glucose (12/02/2024 12:34 PM CDT) Glucose, POC 127 70 - 199 mg/dL Blood 12/02/2024 12:3 4 PM CDT 12/02/2024 12:34 PM CDT Result [facility] Meño Chandra MD LAB POCT ORDERABLES - DEVICE Final Result Performing Organization Address [facility] Co de Phone Number [facility] [address] * Infection Prevention Jeramie auris PCR, surveillance Axilla/Groin (12/02/2024 11:25 AM CDT) Jeramie auris DNA Not Detected Not Detected [facility] Comment: Interpretive Data Testing performed by [facility] using the Matt marie 6800 Jeramie auris assay. This assay detects DNA from Jeramie auris using Real-Time PCR. This assay is laboratory developed and is not cleared by the [facility] Food and Drug Administration. The performance characteristics have been verified by the [facility]. Axilla/Groin 12/02/2024 11:2 5 AM CDT 12/02/2024 12:27 PM CDT Mahendra Downs MD LAB MICROBIOLOGY - GENERAL ORDER PATT Final Result Performing Organization Address [facility] Co de Phone Number [facility] [place] [address] [facility] * Potassium, whole blood (12/02/2024 11:21 AM CDT) Potassium, bld 4.6 3.3 - 4.9 mmol/L Blood 12/02/2024 11:2 1 AM CDT 12/02/2024 11:26 AM CDT Meño Chandra MD LAB BLOOD ORDERABLES Final Result Performing Organization Address [facility] Co de Phone Number [facility] Department [place] [address] * POCT glucose (12/02/2024 11:21 AM CDT) Glucose, POC 143 70 - 199 mg/dL Blood 12/02/2024 11:2 1 AM CDT 12/02/2024 11:21 AM CDT Meño Chandra MD LAB POCT ORDERABLES - DEVICE Final Result Performing Organization Address [facility] Co de Phone Number [facility] Department [place] [address] * (ABNORMAL) Blood gas, arterial (12/02/2024 11:21 AM CDT) pH, Art 7.39 7.35 - 7.45 PCO2, Arterial 36 35 - 45 mmHg [facility] PO2, Arterial 67(L) 83 - 108 mmHg [facility] HCO3 Art (Calculated) 22 20 - 30 mmol/L [facility] BE, art -3 mmol/L [facility] Comment: Interpretive Data No Reference Range Established Current Interpretive Data was last revised on 2017 O2 Sat Art (Measured) 94 90 - 95 % [facility] Blood 12/02/2024 11:2 1 AM CDT 12/02/2024 11:26 AM CDT Meño Chandra MD LAB BLOOD ORDERABLES Final Result Performing Organization Address [facility] Co de Phone Number [facility] Department [place] [address] * POCT glucose (12/02/2024 9:52 AM CDT) Glucose, POC 144 70 - 199 mg/dL Blood 12/02/2024 9:52 AM CDT 12/02/2024 9:52 AM CDT Meño Chandra MD LAB POCT ORDERABLES - DEVICE Final Result Performing Organization Address City/[facility]/ZIP Co de Phone Number [facility] Department [place] [address] * POCT glucose (12/02/2024 8:35 AM CDT) Glucose, POC 167 70 - 199 mg/dL Blood 12/02/2024 8:35 AM CDT 12/02/2024 8:35 AM CDT Meño Chandra MD LAB POCT ORDERABLES - DEVICE Final Result Performing Organization Address [facility]/ZIP Co de Phone Number [facility] [place] [address] * POCT glucose (12/02/2024 6:54 AM CDT) Glucose, POC 181 70 - 199 mg/dL Blood 12/02/2024 6:54 AM CDT 12/02/2024 6:54 AM CDT Meño Chandra MD LAB POCT ORDERABLES - DEVICE Final Result [facility] [place] [address] * POCT glucose (12/02/2024 6:11 AM CDT) Glucose, POC 194 70 - 199 mg/dL Blood 12/02/2024 6:11 AM CDT 12/02/2024 6:11 AM CDT Meño Chandra MD LAB POCT ORDERABLES - DEVICE Final Result [facility] [place] [address] * Potassium, whole blood (12/02/2024 5:18 AM CDT) [facility] Potassium, bld 4.4 3.3 - 4.9 mmol/L Blood 12/02/2024 5:18 AM CDT 12/02/2024 5:25 AM CDT Meño Chandra MD LAB BLOOD ORDERABLES Final Result [facility] [place] [address] * (ABNORMAL) Blood gas, arterial (12/02/2024 5:18 AM CDT) pH, Art 7.39 7.35 - 7.45 PCO2, Arterial 32(L) 35 - 45 mmHg [facility] PO2, Arterial 98 83 - 108 mmHg [facility] HCO3 Art (Calculated) 20 20 - 30 mmol/L [facility] BE, art -5 mmol/L [facility] Comment: Interpretive Data No Reference Range Established Current Interpretive Data was last revised on 2017 O2 Sat Art (Measured) 98(H) 90 - 95 % [facility] Blood 12/02/2024 5:18 AM CDT 12/02/2024 5:25 AM CDT Meño Chandra MD LAB BLOOD ORDERABLES Final Result Performing Organization Address [facility] Co de Phone Number [facility] [place] [address] * POCT glucose (12/02/2024 5:03 AM CDT) Glucose, POC 188 70 - 199 mg/dL Blood 12/02/2024 5:03 AM CDT 12/02/2024 5:03 AM CDT Meño Chandra MD LAB POCT ORDERABLES - DEVICE Final Result Performing Organization Address [facility] Co de Phone Number [facility] [place] [address] * Oxyhemoglobin, central venous (12/02/2024 5:02 AM CDT) Oxyhemoglobin, CV 50.7 % Comment: Interpretive Data No reference range established. Current interpretive data was last revised 2019. Blood 12/02/2024 5:02 AM CDT 12/02/2024 5:25 AM CDT Meño Chandra MD LAB BLOOD ORDERABLES Final Result Performing Organization Address [facility] [place] [address] * POCT glucose (12/02/2024 4:01 AM CDT) Glucose, POC 189 70 - 199 mg/dL Blood 12/02/2024 4:01 AM CDT 12/02/2024 4:01 AM CDT Meño Chandra MD LAB POCT ORDERABLES - DEVICE Final Result Performing Organization Address [facility] [place] [address] * (ABNORMAL) POCT glucose (12/02/2024 3:06 AM CDT) Glucose, POC 205(H) 70 - 199 mg/dL Blood 12/02/2024 3:06 AM CDT 12/02/2024 3:06 AM CDT us Meño Chandra MD LAB POCT ORDERABLES - DEVICE Final Result Performing Organization Address City/[facility]/ZIP Co de Phone Number [facility] [place] [address] * POCT glucose (12/02/2024 2:19 AM CDT) Glucose, POC 196 70 - 199 mg/dL Blood 12/02/2024 2:19 AM CDT 12/02/2024 2:19 AM CDT Meño Chandra MD LAB POCT ORDERABLES - DEVICE Final Result Performing Organization Address City/[facility]/ZIP Co de Phone Number [facility] [place] [address] * Oxyhemoglobin, central venous (12/02/2024 1:44 AM CDT) Pathologist [facility] Oxyhemoglobin, CV 42.5 % Comment: Interpretive Data No reference range established. Current interpretive data was last revised 2019. Blood 12/02/2024 1:44 AM CDT 12/02/2024 2:36 AM CDT Meño Chandra MD LAB BLOOD ORDERABLES Final Result Performing Organization Address [facility] Co de Phone Number [facility] Department [place] [address] * Potassium, whole blood (12/02/2024 1:44 AM CDT) [facility] Potassium, bld 4.7 3.3 - 4.9 mmol/L Blood 12/02/2024 1:44 AM CDT 12/02/2024 2:36 AM CDT Meño Chandra MD LAB BLOOD ORDERABLES Final Result Performing Organization Address [facility] de Phone Number [facility] [place] [address] * (ABNORMAL) Calcium, ionized, whole blood (12/02/2024 1:44 AM CDT) [facility] Ca, ionized, bld 5.13(H) 4.50 - 5.10 mg/dL Blood 12/02/2024 1:44 AM CDT 12/02/2024 2:36 AM CDT Meño Chandra MD LAB BLOOD ORDERABLES Final Result Performing Organization Address [facility] Co de Phone Number [facility] [place] [address] * eGFR (12/02/2024 1:44 AM CDT) [facility] eGFR 71 >=60 mL/min/1. 73 m2 Comment: Interpretive Data Reference Interval Normal >/= 90 mL/min/1.73m2 Mildly decreased* 60 - 89 mL/min/1.73m2 Mildly to moderately decreased 45 - 59 mL/min/1.73m2 Moderately to severely decreased 30 - 44 mL/min/1.73m2 Severely decreased 15 - 29 mL/min/1.73m2 Kidney Failure < 15 mL/min/1.73m2 *Relative to young adult level Estimated glomerular filtration rate is determined by the 2020 CKD-EPI equation recommended by the National Kid[employer] (A Unifying Approach to GFR Estimation: Recommendations of the NKF-ASK Task Force on Reassessing the Inclusion of Race in Diagnosing Kidney Disease, JASN 2020). The CKD-EPI equation should not be used for patients with unstable renal function and has not been validated in children and those over 70. Current interpretive data was last reviewed 2021. Blood 12/02/2024 1:44 AM CDT 12/02/2024 2:14 AM CDT Meño Chandra MD LAB BLOOD ORDERABLES Final Result [facility] [place] [address] * aPTT (12/02/2024 1:44 AM CDT) aPTT 29 28 - 38 sec Comment: Interpretive Data Heparin therapeutic range: 66.0 - 100.0 seconds. Range based on correlation with therapeutic heparin activity range of 0.3 - 0.7 Units/mL. Current interpretive data was last revised on 2023. Blood 12/02/2024 1:44 AM CDT 12/02/2024 2:19 AM CDT Meño Chandra MD LAB BLOOD ORDERABLES Final Result [facility]IG[facility] [place] [address] * (ABNORMAL) Protime-INR (12/02/2024 1:44 AM CDT) PT 14.5(H) 9.7 - 13.0 sec INR 1.33(H) 0.90 - 1.20 [facility] Comment: Interpretive data Oral anticoagulant therapeutic ranges: Venous thromboembolism prophylaxis or treatment: 2.0-3.0 CARDIOLOGY Standard range: 2.0-3.0 High-intensity range: 2.5-3.5 Refer to indication-specific guidelines for appropriate target ranges for prosthetic heart valve replacement. Current interpretive data was last revised on 2019. Blood 12/02/2024 1:44 AM CDT 12/02/2024 2:19 AM CDT us Meño Chandra MD LAB BLOOD ORDERABLES Final Result [facility] One [facility] [place] [address] * (ABNORMAL) CBC without differential (12/02/2024 1:44 AM CDT) WBC 10.22(H) 3.80 - 9.90 K/cumm Hgb 9.0(L) 13.0 - 17.5 g/dL [facility] Hct 25.5(L) 38.9 - 50.3 % [facility] Plt 177 150 - 400 K/cumm [facility] MPV 10.2 9.1 - 12.3 fL [facility] RBC 2.87(L) 4.30 - 5.80 M/cumm [facility] MCV 88.9 81.3 - 96.4 fL [facility] MCH 31.4 27.1 - 33.3 pg [facility] MCHC 35.3 32.3 - 35.7 g/dL [facility] RDW CV 13.7 11.1 - 14.9 % [facility] RDW SD 44.3 35.7 - 48.1 fL [facility] NRBC abs 0.00 0.00 - 0.01 K/cumm [facility] Blood 12/02/2024 1:44 AM CDT 12/02/2024 2:14 AM CDT Meño Chandra MD LAB BLOOD ORDERABLES Final Result Performing Organization Address [facility] de Phone Number [facility] [place] [address] * Type and screen (12/02/2024 1:44 AM CDT) ABO Rh A Positive Terry, indirect Negative [facility] Blood 12/02/2024 1:44 AM CDT 12/02/2024 2:24 AM CDT Narrative [facility] - 12/02/2024 3:20 AM CDT Has the patient had Daratumumab or Isatuximab in the past 6 months?->Unknown Meño Chandra MD LAB BLOOD BANK TEST ORDERABLES Final Result Performing Organization Address [facility] de Phone Number [facility] [place] [address] * Triglycerides (12/02/2024 1:44 AM CDT) Triglycerides 115 <=149 mg/dL Comment: Interpretive Data Ages < or = 9 years Acceptable: <75 mg/dL Borderline high: 75-99 mg/dL High: >or= 100 mg/dL Ages 10 to 20 years Acceptable: <90 mg/dL Borderline high: 90-129 mg/dL High: >or= 130 mg/dL Ages > or = 20 years Desirable: <150 mg/dL Borderline high: 150-199 mg/dL High: 200-499 mg/dL Very high: >or= 499 mg/dL Literature References: 1. Expert Panel on Integrated Guidelines for Cardiovascular Health and Risk Reduction in Children and Adolescents. Pediatrics 2011;128:S213 2. NCEP Expert Panel. Circulation 2004;110:227 Current Interpretive Data was last revised on 2018. Blood 12/02/2024 1:44 AM CDT 12/02/2024 2:14 AM CDT Narrative [facility] - 12/02/2024 2:54 AM CDT While on propofol infusion. Meño Chandra MD LAB BLOOD ORDERABLES Final Result Performing Organization Address [facility] Co de Phone Number [facility] [place] [address] * Phosphorus (12/02/2024 1:44 AM CDT) [facility] Phosphorus, pl 2.5 2.3 - 4.5 mg/dL Blood 12/02/2024 1:44 AM CDT 12/02/2024 2:14 AM CDT Meño Chandra MD LAB BLOOD ORDERABLES Final Result Performing Organization Address [facility] Co de Phone Number [facility] [place] [address] * (ABNORMAL) Magnesium (12/02/2024 1:44 AM CDT) [facility] Magnesium 2.7(H) 1.4 - 2.5 mg/dL Blood 12/02/2024 1:44 AM CDT 12/02/2024 2:14 AM CDT Result [facility] Meño Chandra MD LAB BLOOD ORDERABLES Final Result Performing Organization Address [facility] Co de Phone Number [facility] [place] [address] * (ABNORMAL) Blood gas, arterial (12/02/2024 1:44 AM CDT) [facility] pH, Art 7.37 7.35 - 7.45 PCO2, Arterial 34(L) 35 - 45 mmHg [facility] PO2, Arterial 78(L) 83 - 108 mmHg [facility] HCO3 Art (Calculated) 20 20 - 30 mmol/L [facility] BE, art -5 mmol/L [facility] Comment: Interpretive Data No Reference Range Established Current Interpretive Data was last revised on 2017 O2 Sat Art (Measured) 97(H) 90 - 95 % [facility] Blood 12/02/2024 1:44 AM CDT 12/02/2024 2:36 AM CDT us Meño Chandra MD LAB BLOOD ORDERABLES Final Result [facility] One [facility] [place] [address] * (ABNORMAL) Lipid panel (12/02/2024 1:44 AM CDT) Cholesterol 55 30 - 199 mg/dL Comment: Interpretive Data Ages < or = 19 years Acceptable: <170 mg/dL Borderline high: 170-199 mg/dL High: >or= 200 mg/dL Ages > or = 20 years Desirable: <200 mg/dL Borderline high: 200-239 mg/dL High: >or= 240 mg/dL Literature References: 1. Expert Panel on Integrated Guidelines for Cardiovascular Health and Risk Reduction in Children and Adolescents. Pediatrics 2011;128:S213 2. NCEP Expert Panel. Circulation 2004;110:227 Current Interpretive Data was last revised on 2018. Triglycerides 115 <=149 mg/dL [facility] Comment: Interpretive Data Ages < or = 9 years Acceptable: <75 mg/dL Borderline high: 75-99 mg/dL High: >or= 100 mg/dL Ages 10 to 20 years Acceptable: <90 mg/dL Borderline high: 90-129 mg/dL High: >or= 130 mg/dL Ages > or = 20 years Desirable: <150 mg/dL Borderline high: 150-199 mg/dL High: 200-499 mg/dL Very high: >or= 499 mg/dL Literature References: 1. Expert Panel on Integrated Guidelines for Cardiovascular Health and Risk Reduction in Children and Adolescents. Pediatrics 2011;128:S213 2. NCEP Expert Panel. Circulation 2004;110:227 Current Interpretive Data was last revised on 2018. HDL 21(L) >=40 mg/dL [facility] Comment: Interpretive Data Ages < or = 19 years Acceptable: >45 mg/dL Borderline low: 40-45 mg/dL Low: <40 mg/dL Ages > or = 20 years Desirable: >or= 60 mg/dL Low: <40 mg/dL Literature References: 1. Expert Panel on Integrated Guidelines for Cardiovascular Health and Risk Reduction in Children and Adolescents. Pediatrics 2011;128:S213 2. NCEP Expert Panel. Circulation 2004;110:227 Current Interpretive Data was last revised on 2018. LDL, calculated 13 <=129 mg/dL [facility] Comment: Interpretive Data Ages < or = 19 years Acceptable: <110 mg/dL Borderline high: 110-129 mg/dL High: >or= 130 mg/dL Ages > or = 20 years Optimal: <100 mg/dL Near optimal: 100-129 mg/dL Borderline high: 130-159 mg/dL High: >160 mg/dL Calculated using the Sonny LDL-C estimating equation. This equation was implemented on 2024. Prior to this date LDL-C was estimated using the Friedewald equation. Literature References: 1. Expert Panel on Integrated Guidelines for Cardiovascular Health and Risk Reduction in Children and Adolescents. Pediatrics 2011;128:S213 2. NCEP Expert Panel. Circulation 2004;110:227 3. Sonny Moe et al. ZEHRA Cardiol. 2020 September 22;5(5):540-548. doi: [email or web address] Current Interpretive Data was last revised on 2024. Non-HDL Cholesterol 34 mg/dL [facility] Comment: Interpretive Data Ages < or = 19 years Acceptable: <120 mg/dL Borderline high: 120-144 mg/dL High: >145 mg/dL Ages > or = 20 years When triglycerides are >200 mg/dL, Non-HDL cholesterol is a secondary target of therapy with treatment goals that are 30 mg/dL greater than the LDL cholesterol target. Literature References: 1. Expert Panel on Integrated Guidelines for Cardiovascular Health and Risk Reduction in Children and Adolescents. Pediatrics 2011;128:S213 2. NCEP Expert Panel. Circulation 2004;110:227 Current Interpretive Data was last revised on 2018. Chol/HDL ratio 3 [facility] Blood 12/02/2024 1:44 AM CDT 12/02/2024 2:14 AM CDT us Meño Chandra MD LAB BLOOD ORDERABLES Final Result [facility] One [facility] Department [place] [address] * (ABNORMAL) Basic metabolic panel (12/02/2024 1:44 AM CDT) Pathologist [facility] Sodium 145 135 - 145 mmol/L Potassium, pl 4.6 3.3 - 4.9 mmol/L [facility] Comment:Hemolyzed; Potassium value may be falsely elevated by as much as 0.3-0.5 mmol/L. Suggest redraw and reanalysis. Chloride 114(H) 97 - 110 mmol/L [facility] CO2 23 22 - 32 mmol/L [facility] Anion gap 8 2 - 15 mmol/L [facility] BUN 21 6 - 25 mg/dL [facility] Creatinine 1.08 0.80 - 1.30 mg/dL [facility] Glucose 187 70 - 199 mg/dL [facility] Comment: Interpretive Data Fasting glucose >/= 126 mg/dl is diagnostic for diabetes. Fasting is defined as no caloric intake for at least 8 hours. Fasting glucose between 100 mg/dl to 125 mg/dl is diagnostic of prediabetes. In a patient with classic symptoms of hyperglycemia or hyperglycemic crisis, a random glucose >/= 200 mg/dl is diagnostic for diabetes. In the absence of unequivocal hyperglycemia, results should be confirmed by repeat testing. The classification and Diagnosis of Diabetes Diabetes Care 2021; 46: S19-S40. Current interpretive data was last revised 2022. Calcium 8.7 8.5 - 10.3 mg/dL [facility] Blood 12/02/2024 1:44 AM CDT 12/02/2024 2:14 AM CDT Meño Chandra MD LAB BLOOD ORDERABLES Final Result [facility] One [facility] [place] [address] * XR Abdomen 1 View AP (12/02/2024 1:36 AM CDT) Anatomical Region Laterality Modality Body, Abdomen N/A Digital Radiogra phy 12/02/2024 8:34 AM CDT Impressions 12/02/2024 10:05 AM CDT Gastric tube tip and side-port projects over the gastric body. Partially imaged sternotomy plates. Surgical wendy project over the mediastinum. Epicardial pacing wires. Mediastinal drain. The partially imaged cardiomediastinal silhouette is enlarged. Central venous catheter tip projects over the superior vena cava. Dictated by: Christofer Medina M.D. (Ramanan) The radiology attending physician has personally reviewed this study, and had reviewed and/or edited this written report and agrees with it. Electronically signed by: Scot Brothers M.D. Narrative 12/02/2024 10:05 AM CDT EXAMINATION: Abdomen, one view. HISTORY: Check tube placement. COMPARISON: None Procedure Note Scot Brothers MD - 12/02/2024 EXAMINATION: Abdomen, one view. HISTORY: Check tube placement. COMPARISON: None IMPRESSION: Gastric tube tip and side-port projects over the gastric body. Partially imaged sternotomy plates. Surgical wendy project over the mediastinum. Epicardial pacing wires. Mediastinal drain. The partially imaged cardiomediastinal silhouette is enlarged. Central venous catheter tip projects over the superior vena cava. Dictated by: Christofer Medina M.D. (Ramanan) The radiology attending physician has personally reviewed this study, and had reviewed and/or edited this written report and agrees with it. Electronically signed by: Scot Brothers M.D. us Meño Chandra MD IMG XR PROCEDURES Fi nal Result * XR Chest 1 View (12/02/2024 1:18 AM CDT) Anatomical Region Laterality Modality Body, Chest N/A Digital Radiogra phy 12/02/2024 11:3 0 AM CDT Impressions 12/02/2024 12:08 PM CDT The current study is compared with the prior radiograph dated 12/02/2024. Median sternotomy plates and screws. An endotracheal tube is approximately 4 centimeters above the awilda. Left and right thoracostomy tubes in place. A right internal jugular catheter is in place, tip overlies the superior vena cava. Small lung volumes. Small bilateral pleural effusions and mild basilar atelectasis, similar to prior. No pneumothorax. Cardiomediastinal is stable in keeping with postoperative changes. . Dictated by: Taniya Maloney M.D. The radiology attending physician has personally reviewed this study, and had reviewed and/or edited this written report and agrees with it. Electronically signed by: Yuriy Page M.D. Narrative 12/02/2024 12:08 PM CDT EXAMINATION: 1 view chest radiograph Procedure Note Yuriy Page MD - 12/02/2024 EXAMINATION: 1 view chest radiograph IMPRESSION: The current study is compared with the prior radiograph dated 12/02/2024. Median sternotomy plates and screws. An endotracheal tube is approximately 4 centimeters above the awilda. Left and right thoracostomy tubes in place. A right internal jugular catheter is in place, tip overlies the superior vena cava. Small lung volumes. Small bilateral pleural effusions and mild basilar atelectasis, similar to prior. No pneumothorax. Cardiomediastinal is stable in keeping with postoperative changes. . Dictated by: Taniya Maloney M.D. The radiology attending physician has personally reviewed this study, and had reviewed and/or edited this written report and agrees with it. Electronically signed by: Yuriy Page M.D. Meño Chandra MD IMG XR PROCEDURES Fi nal Result * (ABNORMAL) POC Blood Gas and Chemistries, Arterial - (12/02/2024 12:57 AM CDT) pH, Art POC 7.38 7.35 - 7.45 pCO2, Art POC 37 35 - 45 mmHg [facility] pO2, Art POC 87 83 - 108 mmHg [facility] Na, POC 143 135 - 145 mmol/L [facility] K POC 5.0(H) 3.3 - 4.9 mmol/L [facility] Comment: Interpretive Data Not all point of care methods assess for hemolysis. Confirm with instrument and retest K+ if not consistent with clinical signs and symptoms. Current Interpretive Data was last revised on 2023. Cl, POC 117(H) 97 - 110 mmol/L [facility] Ionized Ca, POC 5.30(H) 4.50 - 5.10 mg/dL [facility] Glucose, POC 207(H) 70 - 199 mg/dL [facility] Lactate POC 1.6 0.7 - 2.0 mmol/L [facility] SO2 (jose) arterial 97(H) 90 - 95 % [facility] Base excess, POC -2.9 mmol/L [facility] HCO3, Art POC 22 20 - 30 mmol/L [facility] Hct, POC 28.0(L) 41.4 - 51.6 % [facility] Total Hb, POC 9.4(L) 13.8 - 17.2 g/dL [facility] Blood 12/02/2024 12:5 7 AM CDT 12/02/2024 12:57 AM CDT Meño Chandra MD LAB POCT ORDERABLES - DEVICE Final Result [facility] One [facility] [place] [address] * XR Chest 1 View (12/02/2024 12:30 AM CDT) Anatomical Region Laterality Modality Body, Chest N/A Computed Radiogr aphy 12/02/2024 12:3 3 AM CDT Impressions 12/02/2024 8:44 AM CDT An endotracheal tube is approximately 4.6 centimeters above the awilda. Sternal fixation devices are noted. Bilateral chest tubes. A right internal jugular catheter is in place with the tip overlying the lower superior vena cava. Clips in the left upper abdomen. Perihilar atelectasis. No definite pneumothorax. Small effusions. Cardiac mediastinal silhouette in keeping with postoperative state. No retained radiodense foreign bodies noted. The Non Critical results were discussed with OR staff Ms. Manzo by Dr. Yamilex Green MD, 12/02/2024 12:32 AM Dictated by: Yamilex Green MD The radiology attending physician has personally reviewed this study, and had reviewed and/or edited this written report and agrees with it. Electronically signed by: Miguel Pittman M.D. Narrative 12/02/2024 8:44 AM CDT EXAMINATION: XR CHEST 1 VIEW HISTORY: Extra needle ongoing coronary artery bypass graft. COMPARISON:CT on 09/22/2024 Procedure Note Miguel Pittman MD - 12/02/2024 EXAMINATION: XR CHEST 1 VIEW HISTORY: Extra needle ongoing coronary artery bypass graft. COMPARISON:CT on 09/22/2024 IMPRESSION: An endotracheal tube is approximately 4.6 centimeters above the awilda. Sternal fixation devices are noted. Bilateral chest tubes. A right internal jugular catheter is in place with the tip overlying the lower superior vena cava. Clips in the left upper abdomen. Perihilar atelectasis. No definite pneumothorax. Small effusions. Cardiac mediastinal silhouette in keeping with postoperative state. No retained radiodense foreign bodies noted. The Non Critical results were discussed with OR staff Nhan Manzo by Dr. Yamilex Green MD, 12/02/2024 12:32 AM Dictated by: Yamilex Green MD The radiology attending physician has personally reviewed this study, and had reviewed and/or edited this written report and agrees with it. Electronically signed by: Miguel Pittman M.D. us Meño Chandra MD IMG XR PROCEDURES Fi nal Result * (ABNORMAL) POCT heparin/ACT CPB (12/01/2024 11:10 PM CDT) [facility] Heparin POC 0.0 units/mL ACT, CPB 110(L) 112 - 174 sec [facility] Blood 12/01/2024 11:1 0 PM CDT 12/01/2024 11:10 PM CDT Meño Chandra MD LAB POCT ORDERABLES - DEVICE Final Result Performing Organization Address [facility] Co de Phone Number [facility] [place] [address] * (ABNORMAL) POCT prothrombin time (12/01/2024 11:06 PM CDT) PT, POC 25.2(H) 11.7 - 16.6 sec INR, POC 1.9(H) 0.9 - 1.2 [facility] Blood 12/01/2024 11:0 6 PM CDT 12/01/2024 11:06 PM CDT Meño Chandra MD LAB POCT ORDERABLES - DEVICE Final Result Performing Organization Address [facility] Co de Phone Number [facility] [place] [address] * (ABNORMAL) POCT Partial thromboplastin time (PTT) (12/01/2024 11:06 PM CDT) [facility] APTT, POC 31.5(L) 32.5 - 46.1 sec Blood 12/01/2024 11:0 6 PM CDT 12/01/2024 11:06 PM CDT Meño Chandra MD LAB POCT ORDERABLES - DEVICE Final Result Performing Organization Address [facility] Co de Phone Number [facility] [place] [place] [address] * (ABNORMAL) POC Blood Gas and Chemistries, Arterial - (12/01/2024 11:05 PM CDT) pH, Art POC 7.34(L) 7.35 - 7.45 pCO2, Art POC 40 35 - 45 mmHg [facility] pO2, Art POC 248(H) 83 - 108 mmHg [facility] Na, POC 143 135 - 145 mmol/L [facility] K POC 4.2 3.3 - 4.9 mmol/L [facility] Comment: Interpretive Data Not all point of care methods assess for hemolysis. Confirm with instrument and retest K+ if not consistent with clinical signs and symptoms. Current Interpretive Data was last revised on 2023. Cl, POC 114(H) 97 - 110 mmol/L [facility] Ionized Ca, POC 4.47(L) 4.50 - 5.10 mg/dL [facility] Glucose, POC 210(H) 70 - 199 mg/dL [facility] Lactate POC 1.5 0.7 - 2.0 mmol/L [facility] SO2 (jose) arterial 99(H) 90 - 95 % [facility] Base excess, POC -3.9 mmol/L [facility] HCO3, Art POC 22 20 - 30 mmol/L [facility] Hct, POC 30.0(L) 41.4 - 51.6 % [facility] Total Hb, POC 9.9(L) 13.8 - 17.2 g/dL [facility] Blood 12/01/2024 11:0 5 PM CDT 12/01/2024 11:05 PM CDT us Meño Chandra MD LAB POCT ORDERABLES - DEVICE Final Result [facility] One [facility] Department [place] [address] * (ABNORMAL) POCT hemoglobin, hematocrit and platelet count (12/01/2024 11:04 PM CDT) Hgb, POC 9.4(L) 13.0 - 17.5 g/dL Hematocrit POC 27.4(L) 38.9 - 50.3 % [facility] Platelet POC 169 150 - 400 K/cumm [facility] Blood 12/01/2024 11:0 4 PM CDT 12/01/2024 11:04 PM CDT Meño Chandra MD LAB POCT ORDERABLES - DEVICE Final Result Performing Organization Address City/[facility]/ZIP Co de Phone Number [facility] [place] [place] [address] * (ABNORMAL) POCT heparin/ACT CPB (12/01/2024 10:03 PM CDT) Pathologist [facility] Heparin POC 3.4 units/mL ACT, CPB 479(H) 112 - 174 sec [facility] Blood 12/01/2024 10:0 3 PM CDT 12/01/2024 10:03 PM CDT Meño Chandra MD LAB POCT ORDERABLES - DEVICE Final Result Performing Organization Address [facility] Co de Phone Number [facility] [place] [address] * (ABNORMAL) POC Blood Gas and Chemistries, Arterial - (12/01/2024 9:57 PM CDT) Pathologist [facility] pH, Art POC 7.38 7.35 - 7.45 pCO2, Art POC 39 35 - 45 mmHg [facility] pO2, Art POC 390(H) 83 - 108 mmHg [facility] Na, POC 142 135 - 145 mmol/L [facility] K POC 4.5 3.3 - 4.9 mmol/L [facility] Comment: Interpretive Data Not all point of care methods assess for hemolysis. Confirm with instrument and retest K+ if not consistent with clinical signs and symptoms. Current Interpretive Data was last revised on 2023. Cl, POC 114(H) 97 - 110 mmol/L [facility] Ionized Ca, POC 4.25(L) 4.50 - 5.10 mg/dL [facility] Glucose, POC 188 70 - 199 mg/dL [facility] Lactate POC 1.1 0.7 - 2.0 mmol/L [facility] SO2 (jose) arterial 99(H) 90 - 95 % [facility] Base excess, POC -1.8 mmol/L [facility] HCO3, Art POC 23 20 - 30 mmol/L [facility] Hct, POC 28.0(L) 41.4 - 51.6 % [facility] Total Hb, POC 9.2(L) 13.8 - 17.2 g/dL [facility] Blood 12/01/2024 9:57 PM CDT 12/01/2024 9:57 PM CDT Meño Chandra MD LAB POCT ORDERABLES - DEVICE Final Result [facility] [place] [place] [address] * Fibrinogen (12/01/2024 9:57 PM CDT) Fibrinogen 212 170 - 400 mg/dL Blood 12/01/2024 9:57 PM CDT 12/01/2024 10:03 PM CDT Ashu Fernandes MD PhD LAB BLOOD ORDERABLES Caro l Result Performing Organization Address City/[facility]/ZIP Co de Phone Number [facility] Department [place] [place] [address] * (ABNORMAL) POCT heparin/ACT CPB (12/01/2024 9:30 PM CDT) Heparin POC 3.4 units/mL ACT, CPB 456(H) 112 - 174 sec [facility] Blood 12/01/2024 9:30 PM CDT 12/01/2024 9:30 PM CDT Meño Chandra MD LAB POCT ORDERABLES - DEVICE Final Result [facility] [place] [place] [address] * (ABNORMAL) POC Blood Gas and Chemistries, Arterial - (12/01/2024 9:23 PM CDT) pH, Art POC 7.37 7.35 - 7.45 pCO2, Art POC 37 35 - 45 mmHg [facility] pO2, Art POC 429(H) 83 - 108 mmHg [facility] Na, POC 141 135 - 145 mmol/L [facility] K POC 4.9 3.3 - 4.9 mmol/L [facility] Comment: Interpretive Data Not all point of care methods assess for hemolysis. Confirm with instrument and retest K+ if not consistent with clinical signs and symptoms. Current Interpretive Data was last revised on 2023. Cl, POC 112(H) 97 - 110 mmol/L [facility] Ionized Ca, POC 4.31(L) 4.50 - 5.10 mg/dL [facility] Glucose, POC 189 70 - 199 mg/dL [facility] Lactate POC 1.1 0.7 - 2.0 mmol/L [facility] SO2 (jose) arterial 99(H) 90 - 95 % [facility] Base excess, POC -3.5 mmol/L [facility] HCO3, Art POC 21 20 - 30 mmol/L [facility] Hct, POC 28.0(L) 41.4 - 51.6 % [facility] Total Hb, POC 9.3(L) 13.8 - 17.2 g/dL [facility] Blood 12/01/2024 9:23 PM CDT 12/01/2024 9:23 PM CDT us Meño Chandra MD LAB POCT ORDERABLES - DEVICE Final Result [facility] Department [place] [address] * (ABNORMAL) POCT heparin/ACT CPB (12/01/2024 8:59 PM CDT) Heparin POC 4.1 units/mL ACT, CPB 518(H) 112 - 174 sec [facility] Blood 12/01/2024 8:59 PM CDT 12/01/2024 8:59 PM CDT us Meño Chandra MD LAB POCT ORDERABLES - DEVICE Final Result [facility] [place] [address] * (ABNORMAL) POC Blood Gas and Chemistries, Arterial - (12/01/2024 8:53 PM CDT) pH, Art POC 7.39 7.35 - 7.45 pCO2, Art POC 37 35 - 45 mmHg [facility] pO2, Art POC 426(H) 83 - 108 mmHg [facility] Na, POC 140 135 - 145 mmol/L [facility] K POC 4.3 3.3 - 4.9 mmol/L [facility] Comment: Interpretive Data Not all point of care methods assess for hemolysis. Confirm with instrument and retest K+ if not consistent with clinical signs and symptoms. Current Interpretive Data was last revised on 2023. Cl, POC 112(H) 97 - 110 mmol/L [facility] Ionized Ca, POC 4.48(L) 4.50 - 5.10 mg/dL [facility] Glucose, POC 197 70 - 199 mg/dL [facility] Lactate POC 1.1 0.7 - 2.0 mmol/L [facility] SO2 (jose) arterial 99(H) 90 - 95 % [facility] Base excess, POC -2.3 mmol/L [facility] HCO3, Art POC 22 20 - 30 mmol/L [facility] Hct, POC 30.0(L) 41.4 - 51.6 % [facility] Total Hb, POC 10.0(L) 13.8 - 17.2 g/dL [facility] Blood 12/01/2024 8:53 PM CDT 12/01/2024 8:53 PM CDT us Meño Chandra MD LAB POCT ORDERABLES - DEVICE Final Result [facility] Department [place] [address] * Surgical pathology (12/01/2024 8:30 PM CDT) Tissue (Heart Valve) 12/01/2024 8:30 PM CDT Narrative PATHOLOGY [facility] - 12/07/2024 10:40 AM CDT EPIC results best viewed via link to PDF [facility] [place] [address] Note to Patients: This report may contain a detailed description of human tissue sent by a health care provider to the laboratory for pathologic evaluation. The content of this report is essential for diagnosis and may provide important critical findings. This information may be unfamiliar to patients to review without a medical professional present. It is advised that the patient review this report in the presence of a health care provider who can answer questions and explain the details. SURGICAL PATHOLOGY REPORT FINAL Patient Name: JAI MEIER Gender: Abhi : 1945 (Age: 79) Address: [address] [place], [place] [id number] Hospital #: [id number] Taken:12/01/2024 Received:12/02/2024 Reported: 12/07/2024 Patient Type: [facility] Inpatient Service: Cardiothoracic Location: [place] [address] Physician(s): MD Anthony Snow, Diagnosis: A. 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 Randy Del Castillo M.D. Report Electronically Reviewed and Signed Out By Randy Del Castillo M.D. 12/07/2024 10:40:53 Breonna Unger M.D. History: The patient is a 79-year-old man with severe aortic stenosis. Operative Procedure: coronary artery bypass graft with pump x2, replacement aortic valve, endoscopic vessel harvest Specimen(s) Received: A: Aortic valve Gross Description: Received in formalin labeled with the patient identifiers and aortic valve are three pliable yellow-huynh valve leaflets (3.5 x 3.0 cm in aggregate and 0.1-0.2 cm in thickness). Sections through the thickened areas show gritty yellow-huynh tissue. Machine Clipper sections are submitted in cassette A1, post acid 1 decalcification. Jar 1. bao2/12/02/2024 11:42 PA(s): SHANDA Velasquez (ASCP)CM By this signature, I attest that the above diagnosis is based upon my personal examination of the slides(and/or other material). Addenda/Procedures The performance characteristics of some immunohistochemical stains, fluorescence in-situ hybridization tests and immunophenotyping by flow cytometry cited in this report (if any) were determined by the Surgical Pathology and Flow Cytometry Departments at [facility] as part of an ongoing corporate quality assurance manager program and in compliance with federally mandated regulations drawn from the Clinical Laboratory Improvement Act of 1988 (CLIA '88). Some of these tests rely on the use of analyte specific reagents and are subject to specific labeling requirements by the US Food and Drug Administration. Such diagnostic tests may only be performed in a facility that is certified by the Department of Health and Human Services as a high complexity laboratory under CLIA '88. The FDA has determined that such clearance or approval is not necessary. This test is used for clinical purposes. It should not be regarded as investigational or for research. Nevertheless, federal rules concerning the medical use of analyte specific reagents require that the following disclaimer be attached to the report: This test was developed and its performance characteristics determined by the Surgical Pathology and Flow Cytometry Departments of [facility]. It has not been cleared or approved by the U. S. Food and Drug Administration. IMAGES AND SCANNED DOCUMENTS, IF INCLUDED, ONLY VIEWABLE IN PDF VERSION OF REPORT us Meño Chandra MD LAB PATHOLOGY ORDERA BLES Final Result PATHOLOGY [facility] 3rd Floor [place], [place] [phone] * (ABNORMAL) POCT heparin/ACT CPB (12/01/2024 8:29 PM CDT) Heparin POC 4.1 units/mL ACT, CPB 503(H) 112 - 174 sec [facility] Blood 12/01/2024 8:29 PM CDT 12/01/2024 8:29 PM CDT Meño Chandra MD LAB POCT ORDERABLES - DEVICE Final Result [facility] Department [place] [address] * (ABNORMAL) POC Blood Gas and Chemistries, Arterial - (12/01/2024 8:23 PM CDT) Pathologist [facility] pH, Art POC 7.39 7.35 - 7.45 pCO2, Art POC 38 35 - 45 mmHg [facility] pO2, Art POC 312(H) 83 - 108 mmHg [facility] Na, POC 140 135 - 145 mmol/L [facility] K POC 4.7 3.3 - 4.9 mmol/L [facility] Comment: Interpretive Data Not all point of care methods assess for hemolysis. Confirm with instrument and retest K+ if not consistent with clinical signs and symptoms. Current Interpretive Data was last revised on 2023. Cl, POC 113(H) 97 - 110 mmol/L [facility] Ionized Ca, POC 4.50 4.50 - 5.10 mg/dL [facility] Glucose, POC 202(H) 70 - 199 mg/dL [facility] Lactate POC 1.2 0.7 - 2.0 mmol/L [facility] SO2 (jose) arterial 99(H) 90 - 95 % [facility] Base excess, POC -1.7 mmol/L [facility] HCO3, Art POC 23 20 - 30 mmol/L [facility] Hct, POC 29.0(L) 41.4 - 51.6 % [facility] Total Hb, POC 9.7(L) 13.8 - 17.2 g/dL [facility] Blood 12/01/2024 8:23 PM CDT 12/01/2024 8:23 PM CDT Meño Chandra MD LAB POCT ORDERABLES - DEVICE Final Result [facility] [place] [address] * (ABNORMAL) POCT heparin/ACT CPB (12/01/2024 8:04 PM CDT) Pathologist [facility] Heparin POC 3.4 units/mL ACT, CPB 493(H) 112 - 174 sec [facility] Blood 12/01/2024 8:04 PM CDT 12/01/2024 8:04 PM CDT Meño Chandra MD LAB POCT ORDERABLES - DEVICE Final Result Performing Organization Address [facility] Co de Phone Number [facility] [place] [address] * (ABNORMAL) POC Blood Gas and Chemistries, Arterial - (12/01/2024 7:58 PM CDT) Pathologist [facility] pH, Art POC 7.41 7.35 - 7.45 pCO2, Art POC 36 35 - 45 mmHg [facility] pO2, Art POC 314(H) 83 - 108 mmHg [facility] Na, POC 141 135 - 145 mmol/L [facility] K POC 5.0(H) 3.3 - 4.9 mmol/L [facility] Comment: Interpretive Data Not all point of care methods assess for hemolysis. Confirm with instrument and retest K+ if not consistent with clinical signs and symptoms. Current Interpretive Data was last revised on 2023. Cl, POC 112(H) 97 - 110 mmol/L [facility] Ionized Ca, POC 4.34(L) 4.50 - 5.10 mg/dL [facility] Glucose, POC 203(H) 70 - 199 mg/dL [facility] Lactate POC 1.2 0.7 - 2.0 mmol/L [facility] SO2 (jose) arterial 100(H) 90 - 95 % [facility] Base excess, POC -1.6 mmol/L [facility] HCO3, Art POC 23 20 - 30 mmol/L [facility] Hct, POC 28.0(L) 41.4 - 51.6 % [facility] Total Hb, POC 9.2(L) 13.8 - 17.2 g/dL [facility] Blood 12/01/2024 7:58 PM CDT 12/01/2024 7:58 PM CDT Meño Chandra MD LAB POCT ORDERABLES - DEVICE Final Result [facility] Department [place] [place] [address] * (ABNORMAL) POCT heparin/ACT CPB (12/01/2024 7:33 PM CDT) Heparin POC >4.7 units/mL ACT, CPB 658(H) 112 - 174 sec [facility] Blood 12/01/2024 7:33 PM CDT 12/01/2024 7:33 PM CDT Meño Chandra MD LAB POCT ORDERABLES - DEVICE Final Result Performing Organization Address City/[facility]/ZIP Co de Phone Number [facility] Department [place] [place] [address] * (ABNORMAL) POC Blood Gas and Chemistries, Arterial - (12/01/2024 7:26 PM CDT) pH, Art POC 7.38 7.35 - 7.45 pCO2, Art POC 35 35 - 45 mmHg [facility] pO2, Art POC 498(H) 83 - 108 mmHg [facility] Na, POC 139 135 - 145 mmol/L [facility] K POC 4.2 3.3 - 4.9 mmol/L [facility] Comment: Interpretive Data Not all point of care methods assess for hemolysis. Confirm with instrument and retest K+ if not consistent with clinical signs and symptoms. Current Interpretive Data was last revised on 2023. Cl, POC 111(H) 97 - 110 mmol/L [facility] Ionized Ca, POC 4.41(L) 4.50 - 5.10 mg/dL [facility] Glucose, POC 201(H) 70 - 199 mg/dL [facility] Lactate POC 1.2 0.7 - 2.0 mmol/L [facility] SO2 (jose) arterial 100(H) 90 - 95 % [facility] Base excess, POC -3.9 mmol/L [facility] HCO3, Art POC 21 20 - 30 mmol/L [facility] Hct, POC 31.0(L) 41.4 - 51.6 % [facility] Total Hb, POC 10.4(L) 13.8 - 17.2 g/dL [facility] Blood 12/01/2024 7:26 PM CDT 12/01/2024 7:26 PM CDT Meño Chandra MD LAB POCT ORDERABLES - DEVICE Final Result Performing Organization Address City/[facility]/ZIP Co de Phone Number [facility] Department [place] [place] [address] * (ABNORMAL) POCT heparin/ACT CPB (12/01/2024 7:02 PM CDT) [facility] Heparin POC 4.1 units/mL ACT, CPB 528(H) 112 - 174 sec [facility] Blood 12/01/2024 7:02 PM CDT 12/01/2024 7:02 PM CDT Meño Chandra MD LAB POCT ORDERABLES - DEVICE Final Result [facility] Department [place] [place] [address] * (ABNORMAL) POC Blood Gas and Chemistries, Arterial - (12/01/2024 6:59 PM CDT) [facility] Signature pH, Art POC 7.39 7.35 - 7.45 pCO2, Art POC 35 35 - 45 mmHg [facility] pO2, Art POC 165(H) 83 - 108 mmHg [facility] Na, POC 141 135 - 145 mmol/L [facility] K POC 3.6 3.3 - 4.9 mmol/L [facility] Comment: Interpretive Data Not all point of care methods assess for hemolysis. Confirm with instrument and retest K+ if not consistent with clinical signs and symptoms. Current Interpretive Data was last revised on 2023. Cl, POC 113(H) 97 - 110 mmol/L [facility] Ionized Ca, POC 4.58 4.50 - 5.10 mg/dL [facility] Glucose, POC 182 70 - 199 mg/dL [facility] Lactate POC 1.1 0.7 - 2.0 mmol/L [facility] SO2 (jose) arterial 99(H) 90 - 95 % [facility] Base excess, POC -3.2 mmol/L [facility] HCO3, Art POC 21 20 - 30 mmol/L [facility] Hct, POC 35.0(L) 41.4 - 51.6 % [facility] Total Hb, POC 11.5(L) 13.8 - 17.2 g/dL [facility] Blood 12/01/2024 6:59 PM CDT 12/01/2024 6:59 PM CDT us Meño Chandra MD LAB POCT ORDERABLES - DEVICE Final Result [facility] Department [place] [address] * (ABNORMAL) POC Blood Gas and Chemistries, Arterial - (12/01/2024 6:26 PM CDT) [facility] Signature pH, Art POC 7.40 7.35 - 7.45 pCO2, Art POC 35 35 - 45 mmHg [facility] pO2, Art POC 269(H) 83 - 108 mmHg [facility] Na, POC 140 135 - 145 mmol/L [facility] K POC 3.9 3.3 - 4.9 mmol/L [facility] Comment: Interpretive Data Not all point of care methods assess for hemolysis. Confirm with instrument and retest K+ if not consistent with clinical signs and symptoms. Current Interpretive Data was last revised on 2023. Cl, POC 111(H) 97 - 110 mmol/L [facility] Ionized Ca, POC 4.97 4.50 - 5.10 mg/dL [facility] Glucose, POC 184 70 - 199 mg/dL [facility] Lactate POC 1.1 0.7 - 2.0 mmol/L [facility] SO2 (jose) arterial 99(H) 90 - 95 % [facility] Base excess, POC -2.6 mmol/L [facility] HCO3, Art POC 23 20 - 30 mmol/L [facility] Hct, POC 36.0(L) 41.4 - 51.6 % [facility] Total Hb, POC 12.1(L) 13.8 - 17.2 g/dL [facility] Blood 12/01/2024 6:26 PM CDT 12/01/2024 6:26 PM CDT us Meño Chandra MD LAB POCT ORDERABLES - DEVICE Final Result [facility] [place] [address] * Central Venous Line (12/01/2024 6:15 PM CDT) Narrative Melissa Funez DO - 12/01/2024 6:15 PM CDT Melissa Funez DO 12/01/2024 6:16 PM Central Venous Line Patient location: OR Indication: central venous access Staff: Supervising provider: Per Cristobal MD Placed by: Resident: Melissa Funez DO Procedure prep: Patient position: Trendelenburg. PPE: provider hand hygiene, provider hat/mask, sterile gloves, sterile gown, full body drape, sterile gel and sterile probe covers. Prep solution: chlorhexadine/alcohol was applied to area. Ultrasound Evaluation: Ultrasound was prepped into field. Ultrasound image(s) saved to archive. Prior to the procedure, the cannulated vein was evaluated by ultrasound and deemed suitably patent for access.This vessel was accessed using real-time ultrasound guidance and an image was placed in the patient's medical record Central line: Laterality: right Site: internal jugular An individually distinct skin insertion site is being utilized for placement of the catheter. Catheter type: introducer sheath Catheter size: 9 Fr. Catheter length: 20 cm Technique: anatomy identified with ultrasound, Seldinger technique, wire threaded easily and wire removed intact Venous verification: manometry Post insertion: all ports aspirated, all ports flushed easily, line sutured in place and occlusive dressing applied Number of attempts: 1 Assessment: Events: patient tolerated procedure well with no complications us Per Cristobal MD ANESTHESIA ORDERABLES Caro l Result * Central Venous Line (12/01/2024 6:14 PM CDT) Narrative Melissa Funez DO - 12/01/2024 6:14 PM CDT Melissa Funez DO 12/01/2024 6:15 PM Central Venous Line Patient location: OR Indication: central venous access and CVP monitoring Staff: Supervising provider: Per Cristobal MD Placed by: Resident: Melissa Funez DO Procedure prep: Patient position: Trendelenburg. PPE: provider hand hygiene, provider hat/mask, sterile gloves, sterile gown, full body drape, sterile gel and sterile probe covers. Prep solution: chlorhexadine/alcohol was applied to area. Ultrasound Evaluation: Ultrasound was prepped into field. Ultrasound image(s) saved to archive. Prior to the procedure, the cannulated vein was evaluated by ultrasound and deemed suitably patent for access.This vessel was accessed using real-time ultrasound guidance and an image was placed in the patient's medical record Central line: Laterality: right Site: internal jugular An individually distinct skin insertion site is being utilized for placement of the catheter. Catheter type: quad lumen Catheter size: 8.5 Fr. Catheter length: 16 cm Technique: anatomy identified with ultrasound, Seldinger technique, wire threaded easily and wire removed intact Venous verification: manometry Post insertion: all ports aspirated, all ports flushed easily, line sutured in place and occlusive dressing applied Number of attempts: 1 Assessment: Events: patient tolerated procedure well with no complications us Per Cristobal MD ANESTHESIA ORDERABLES Caro funez Result * Airway (12/01/2024 6:12 PM CDT) Narrative Melissa Funez DO - 12/01/2024 6:12 PM CDT Melissa Funez DO 12/01/2024 6:14 PM Airway Patient location: OR Urgency: elective Indications for airway management: anesthesia Difficult airway: no Staff: Supervising provider: Per Cristobal MD Placed by: Resident: Melissa Funez DO Emergent airway documentation: Risks and benefits discussed: yes Consent obtained: yes Consent given by: patient Airway prep: Preoxygenated: yes Patient position: sniffing Mask difficulty assessment: 2 - vent by mask + OA or adjuvant Spontaneous ventilation during airway: absent Sedation level during airway: GA Final airway details: Final airway type: endotracheal airway Tube type: ETT ETT size: 8.0 mm Technique used for successful ETT placement: video laryngoscopy Devices/Methods used in placement: stylet Blade type: Sonia Video blade type: Mccollum Blade size: 4 Cormack-Lehane (video): grade I - full view of glottis ETT to teeth: 24 cm Placement verified by: auscultation and CO2 detection Airway secured with: silk tape Number of attempts: 1 us Per Cristobal MD ANESTHESIA ORDERABLES Caro funez Result * POCT heparin dose response, CPB (12/01/2024 5:22 PM CDT) Baseline ACT POC 146 112 - 174 sec Heparin dose response slope POC 98 60 - 195 [facility] Projected Heparin Concentration POC 1.1 units/mL [facility] Blood 12/01/2024 5:22 PM CDT 12/01/2024 5:22 PM CDT us Meño Chandra MD LAB POCT ORDERABLES - DEVICE Final Result [facility] [place] [address] * AL AN PROCEDURE PLACEHOLDER (12/01/2024 5:20 PM CDT) Narrative Per Cristobal MD - 12/01/2024 5:20 PM CDT Per Cristobal MD 12/01/2024 5:22 PM Arterial Line Patient location: OR Indication: continuous blood pressure monitoring Staff: Supervising provider: Per Cristobal MD Placed by: Anesthesiologist: Per Cristobal MD Resident: Melissa Funez DO Procedure prep: Prep solution: chlorhexadine/alcohol Prep: sterile gloves Skin infiltrated with lidocaine 1%: yes Arterial line: Catheter size: 20 gauge Catheter length: 1 and 3/4 inch Seldinger technique: yes Laterality: left Site: radial artery Line secured: Tegaderm Results: good waveform and good blood return Number of attempts: 3 Assessment: Events: patient tolerated procedure well with no complications Additional comments: 2 attempts by resident. Artery only hit once. No hematoma us Per Cristobal MD ANESTHESIA ORDERABLES Caro l Result * AL AN PROCEDURE PLACEHOLDER (12/01/2024 5:16 PM CDT) Anatomical Region Laterality Modality Other Narrative 12/01/2024 5:16 PM CDT Ashu Fernandes MD PhD 12/02/2024 1:22 AM CITLALY Date/time: 12/01/2024 11:39 PM Staff: Supervising anesthesiologist: Per Cristobal MD Performed by: Anesthesiologist: Ashu Fernandes MD PhD 1st Fellow: Jane Wall MD Preprocedure checklist: patient identified, procedure contraindications assessed, procedure consent, risks, benefits and alternatives discussed, monitors and equipment checked, timeout performed and CITLALY probe inserted into esophagus using lubricating jelly General procedure Information: Reason for procedure/indications: assessment of surgical repair and hemodynamic monitoring Performed: personally Procedure performed at surgeon's request: yes Results discussed with surgeon: yes Images submitted to archive: yes Patient location: OR Intubated: yes Bite blocked placed: yes Probe Insertion: easy Complications: no Probe type: adult Modalities: 2D imaging, continuous wave Doppler, pulsed wave Doppler and color Doppler Billing information: Physician requesting echo: Meño Chandra MD CPT code: CITLALY placement and diagnostic exam, non-congenital (52399) ICD code(s) for medical necessity: I35.0 - Nonrheumatic aortic (valve) stenosis Echocardiographic and doppler measurements: Ventricles: Left ventricle: Cavity size: normal Hypertrophy: Yes Thrombus: No Global function: normal LVEF%: normal Right ventricle: Cavity size: normal Hypertrophy: no Global function: normal RVEF%: normal Interventricular septum: hypertrophy Regional function: 1- Basal anteroseptal: normal 2- Basal anterior: normal 3- Basal anterolateral: normal 4- Basal inferolateral: normal 5- Basal inferior: normal 6- Basal inferoseptal: normal 7- Mid anteroseptal: normal 8- Mid anterior: normal 9- Mid anterolateral: normal 10- Mid inferolateral: normal 11- Mid inferior: normal 12- Mid inferoseptal: normal 13- Apical anterior: normal 14- Apical lateral: normal 15- Apical inferior: normal 16- Apical septal: normal 17- Sondheimer: normal Valves: Aortic Valve: Annulus: normal Leaflet morphology: normal Leaflet motion: normal Stenosis: mild Regurgitation: none Mitral valve: Annulus: normal Leaflet morphology anterior: normal Leaflet morphology posterior: normal Leaflet motion anterior: normal Leaflet motion posterior: normal Stenosis: none Regurgitation: none Tricuspid valve: Annulus: normal Leaflet morphology: normal Leaflet motion: normal Stenosis: none Regurgitation: none Pulmonic valve: Annulus: normal Stenosis: none Regurgitation: absent Aorta: Ascending aorta: Size: normal Dissection: no Plaque thickness(mm): 0-3 Plaque mobile: no Aortic arch: Size: normal Dissection: no Plaque thickness(mm): 0-3 Plaque mobile: no Descending aorta: Size: normal Dissection: no Plaque thickness(mm): 0-3 Plaque mobile: no Atria: Right atrium: Size: normal Spontaneous echo contrast: No Thrombus: no Left atrium: Size: normal (normal) Spontaneous echo contrast: No Thrombus: no Left atrial appendage: normal Interatrial septum: normal Diastolic function and other findings: Diastolic function: grade I dysfunction Pericardium: normal Pulmonary venous flow: normal Pre-procedure CITLALY exam summary: There is severe LVH with mild to moderate . No AI. There is normal RV function with not enough TR to estimate PA pressures. Normal aortic arch. Postprocedure (follow-up) CITLALY exam: LV: unchanged RV: unchanged Interventricular septum: unchanged Aortic valve: normal and bioprosthetic Aortic valve gradient peak: 12 mmHg Aortic valve gradient mean: 7 mmHg : Trace MR. Pulmonic valve: unchanged Tricuspid valve: unchanged Atria: unchanged Aorta: unchanged Pericardium: normal Left pleural: normal Right pleural: normal Postprocedure (follow-up) CITLALY exam comments: S/p CABGx2 and AVR (25MM Magna Ease). On no inotropic support. Normal biventricular function. Severe LVH. Bioprosthetic aortic valve in appropriate position with no evidence of paravalvular leak, no stenosis or regurgitation. Trace MR. No evidence of aortic dissection. Attestation Statement: By signing this report the attending anesthesiologist certifies that he or she has personally reviewed and interpreted the echocardiogram and has reviewed and or edited and agrees with the written comments contained within the report. us Per Cristobal MD ANESTHESIA ORDERABLES Caro l Result * (ABNORMAL) POC Blood Gas and Chemistries, Arterial - (12/01/2024 5:13 PM CDT) pH, Art POC 7.44 7.35 - 7.45 pCO2, Art POC 35 35 - 45 mmHg [facility] pO2, Art POC 256(H) 83 - 108 mmHg [facility] Na, POC 140 135 - 145 mmol/L [facility] K POC 4.2 3.3 - 4.9 mmol/L [facility] Comment: Interpretive Data Not all point of care methods assess for hemolysis. Confirm with instrument and retest K+ if not consistent with clinical signs and symptoms. Current Interpretive Data was last revised on 2023. Cl, POC 110 97 - 110 mmol/L [facility] Ionized Ca, POC 5.02 4.50 - 5.10 mg/dL [facility] Glucose, POC 191 70 - 199 mg/dL [facility] Lactate POC 1.1 0.7 - 2.0 mmol/L [facility] SO2 (jose) arterial 100(H) 90 - 95 % [facility] Base excess, POC 0.0 mmol/L [facility] HCO3, Art POC 25 20 - 30 mmol/L [facility] Hct, POC 36.0(L) 41.4 - 51.6 % [facility] Total Hb, POC 11.9(L) 13.8 - 17.2 g/dL [facility] Blood 12/01/2024 5:13 PM CDT 12/01/2024 5:13 PM CDT Meño Chandra MD LAB POCT ORDERABLES - DEVICE Final Result Performing Organization Address [facility] Co de Phone Number [facility] Department [place] [place] [address] * CITLALY Add-On For OR (12/01/2024 3:12 PM CDT) Narrative [facility] PROSOLV_CARDIOREPORT_CONS SCIMAGE - 12/01/2024 3:12 PM CDT Procedure Auto Finalized by Rule: BW CV CITLALY DURING CASE OR Please see the Anesthesiologist's Procedure Note for the results. us Per Cristobal MD CV ECHO PROCEDURES Final R esult Performing Organization Address [facility] de Phone Number [facility] PROSOLV_CARDIOREPORT_CONS SCIMAGE * (ABNORMAL) POCT glucose (12/01/2024 3:07 PM CDT) Glucose, POC 206(H) 70 - 199 mg/dL Blood 12/01/2024 3:07 PM CDT 12/01/2024 3:07 PM CDT Meño Chandra MD LAB POCT ORDERABLES - DEVICE Final Result Performing Organization Address [facility] de Phone Number [facility] Department [place] [place] [address] * (ABNORMAL) POC Blood Gas and Chemistries, Arterial - (12/01/2024 1:41 PM CDT) Na, POC 137 135 - 145 mmol/L K POC 4.3 3.3 - 4.9 mmol/L [facility] Comment: Interpretive Data Not all point of care methods assess for hemolysis. Confirm with instrument and retest K+ if not consistent with clinical signs and symptoms. Current Interpretive Data was last revised on 2023. Glucose, POC 259(H) 70 - 199 mg/dL [facility] Hct, POC 40.0(L) 41.4 - 51.6 % [facility] Total Hb, POC 13.4(L) 13.8 - 17.2 g/dL [facility] Blood 12/01/2024 1:41 PM CDT 12/01/2024 1:41 PM CDT Meño Chandra MD LAB POCT ORDERABLES - DEVICE Final Result Performing Organization Address [facility]/ZIP Co de Phone Number [facility] Department [place] [place] [address] * Check Sample (12/01/2024 1:32 PM CDT) ABO Rh A Positive [facility] HCLL OTHER 12/01/2024 1:32 PM CDT 12/01/2024 1:56 PM CDT Meño Chandra MD LAB BLOOD ORDERABLES Final Result Performing Organization Address [facility] Co de Phone Number [facility] [place] [address] [facility] * Prepare RBC: 4 Units (12/01/2024 1:13 PM CDT) Product code [id number] [facility] Unit Number [id number] 6-A [facility] Product Blood [facility] APOS [facility] Dispense Status RETURNED [facility] Product code [id number] [facility] Unit Number [id number] 8-X [facility] Product Blood Type APOS [facility] Dispense Status RETURNED [facility] Product code [id number] Unit Number [id number] 4-I [facility] Product Blood Type APOS [facility] Dispense Status RETURNED [facility] Product code [id number] [facility] Unit Number [id number] 0-A [facility] Product Blood Type APOS [facility] Dispense Status RETURNED [facility] Blood 12/01/2024 1:13 PM CDT 12/01/2024 1:12 PM CDT Narrative WANDA RODRIGUES - 12/02/2024 12:48 AM CDT Specify Procedure:->CABGx2, aortic valve replacement Are special requirements needed? (All products are leukoreduced and CMV- safe)- >No Date required:-[id number] LRRBC # of [id number] Reasons:-Hold for procedure (specify procedure)} Marcy Woo CLAIM BENEFIT SPECIALIST BLOOD BANK PRODUCT OR DERABLES Final Result Performing Organization Address [facility] de Phone Number [facility] [place] [employer] [place] [address] * TYPE AND SCREEN 14 DAY (11/22/2024 2:58 PM CDT) Pathologist [facility] ABO Rh A Positive Terry, indirect Negative [facility] Blood 11/22/2024 2:58 PM CDT 11/22/2024 5:51 PM CDT Narrative WANDA [facility] - 11/22/2024 6:49 PM CDT Is this test being ordered in advance for a procedure?->Yes Expected date of procedure:->12/01/24 Has the patient been transfused in the past 3 months?->No Marcy Woo NP LAB BLOOD BANK TEST O RDERABLES Final Result Performing Organization Address [facility] de Phone Number [facility] [place] [address] * CPAP aPTT algorithm (11/22/2024 2:58 PM CDT) aPTT 31 28 - 38 sec Comment: Interpretive Data Heparin therapeutic range: 66.0 - 100.0 seconds. Range based on correlation with therapeutic heparin activity range of 0.3 - 0.7 Units/mL. Current interpretive data was last revised on 2023. Blood 11/22/2024 2:58 PM CDT 11/22/2024 5:36 PM CDT Marcy Woo NP LAB BLOOD ORDERABLES Final Result [facility] Department [place] [address] * (ABNORMAL) Urinalysis reflex to microscopic and culture Urine, clean voided (11/22/2024 2:58 PM CDT) Color, ur Straw Yellow Clarity, ur Clear Clear [facility] Specific gravity, ur 1.027 1.003 - 1.030 [facility] pH, urine 6.0 [facility] Comment: Interpretive Data U rine pH is affected by diet, medications, systemic acid-base disturbances, and renal tubular function. pH may affect urinary stone formation. For example, urine pH below 6.0 may help reduce the tendency for calcium phosphate stones and pH greater than 6.0 may reduce the tendency for uric acid stone formation. Source: [facility] Current Interpretive Data was last revised on 2017 Protein, ur ql Negative Negative [facility] Glucose, ur ql 4+(A) Negative [facility] Ketones, ur Negative Negative [facility] Bilirubin, ur Negative Negative [facility] Blood, ur Negative Negative [facility] Urobilinogen, ur <2.0 <2.0 mg/dL [facility] Nitrite, ur Negative Negative [facility] Leukocyte esterase, ur Negative Negative [facility] UA reflex comment Reflex conditions for microscopic UA and culture not met. [facility] Urine, clean voided 11/22/2024 2:58 PM CDT 11/22/2024 5:24 PM CDT Marcy Woo NP LAB MICROBIOLOGY - GE NERAL ORDERABLES Final Result WANDA [facility] Department [place] [address] * CORONARY FLOW VELOCITY (CFR) / INSTATANEOUS FLOW VELOCITY (IFR), 1ST VESSEL, LEFT HEART CATHETERIZATION WITH CORONARY ANGIOGRAPHY AND WITH AND WITHOUT LEFT VENTRICULOGRAM, CORONARY FLOW VELOCITY (CFR) / INSTATANEOUS FLOW VELOCITY (IFR), EA ADDTN'L VESSEL (11/15/2024 11:08 AM CDT) Anatomical Region Laterality Modality X-Ray Angiograph y Narrative 11/15/2024 11:26 AM CDT Cardiac Catheterization Operative Report Radial Jai Meier [id number] 11/15/2024 Anthony Hogan, DO Patient Clinical Profile: Mr Meier is a 79 y/o male with a history of obesity, hypertension, DM, dyslipidemia and aortic stenosis who has been feeling dyspnea with decreasing exertion and fatigue. He underwent a TTE that demonstrated moderate with a mean gradient of 24 mmHg. His symptoms were out of porportion to the findings so he is being referred for coronary angiography and invasive measurements. Procedure Details The risks, benefits, complications, treatment options, and expected outcomes were discussed with the patient. The patient and/or family concurred with the proposed plan, giving informed consent. The patient was brought to the clinical laboratory scientist after IV hydration was continued and oral premedication was given. I provided direct face to face monitoring of intravenous conscious sedation which was administered using Fentanyl and Versed by an independently certified nurse for a total of 45 minutes. 2% Lidocaine was used for local anesthesia A angiocatheter was used to access was obtained the right radial artery, A 6/5 singaporean slender sheath was inserted into the right radial artery. A 6 Fr sheath was placed in the antecubital vein . Intraradial nicardipine and nitroglycerin was administered. Once access was obtained in the ascending aorta heparin was administered. A tiger wire was advanced into the ascedning aorta. The patient had a 5 singaporean JR4 catheter was advanced from the radial artery to the central aorta over the wire and advanced to the LV The dual lumen pigtail catheter was then advanced through the aortic valve into the left ventricle and left ventricular hemodymnamics were obtained with simultaneous measurements Coronary angiography was performed with a EBU 3.5 6 Fr and JR 4 catheter. Heparin was administered for ACT> 250s Intracoronary nicardipine was administered for vasodilation . All catheters were exchanged over a wire. IFR of the LAD and OM 1 was performed. The left coronary catheter was cannulated and angiography was performed. The right coronary catheter was cannulated and angiography was performed. Intracoronary nitroglycerin and nicardipine were adminsitered to obtain maximal vasodilation. The catheter was removed over a guide wire. At the conclusion of the case intraradial nicardipine was administered and hemostasis achieved with a Trans Radial Band There were no apparent complications. Results: Hemodynamics: LV: 165/22 mmHg Ao: 125/60 mmHg Mean aortic gradient: 34 mmHg Coronary arteries: Right coronary artery:non dominant vessel with a 80% ostial lesion and 60-70% mid rCA lesion Left coronary artery: LM: angiographically normal Lcx: dominant vesel. The proximal, mid and distal segment of the vessel is free of disease. The OM 1 has 2 areas of 70-80% narrowing in its proximal segment. The rest of the vessel is mildly tortuous. The LPL 1 is small and diffusely diseased. The LPDA is small and has a 80% narrowing in its proximal segmentnt LAD: The LAD is a vessel that wraps around the apex. The proximal LAD has moderate calcification and a moderate area of stenosis. The mid LAD is severely diffusely diseased and persists to the apex. The first diagonal is small and diffusely diseased IFR: Due to the diffuse nature of disease and the decision to proceed with revascularization IFR followed. The omni wire was normalized in the LM. The wire was advanced to the om 1 and ifr was 0.82 yielding the lesion significant There was no drift on pullback IFR of the LAD : 0.47 yielding the lesion significant. On pullback there was diffuse change in slope and an acute change in slope in the proximal segment. Angiorpahy confirmed WAGNER 3 flow. Diagnostic impression: Moderate to severe Elevated filling pressure Severe 2 vessel CAD HTN DM Dyslipidemia Therapeutic recommendations: TR band care ASA 81 mg daily CTS consult for consideration of CABG+ AVR. Rocky Bruno MD wire frame maker [employer] Manager of Valvular Heart Disease 11/15/2024 11:15 AM Rocky Bruno MD CV CARDIAC CATH PROCEDURES Caro l Result * (ABNORMAL) POCT Activated clotting time, low range (11/15/2024 11:00 AM CDT) ACT 247(H) 123 - 168 sec POC Performer [id number] [facility] POC Device Number [id number] [facility] Blood 11/15/2024 11:0 0 AM CDT 11/15/2024 11:00 AM CDT Rocky Bruno MD LAB POCT ORDERABLES - DEVICE Fi nal Result Performing Organization Address [facility] Co de Phone Number [facility] Department [place] [address] * (ABNORMAL) POCT Activated clotting time, low range (11/15/2024 10:42 AM CDT) ACT 216(H) 123 - 168 sec POC Performer [id number] [facility] POC Device Number [id number] [facility] Blood 11/15/2024 10:4 2 AM CDT 11/15/2024 10:42 AM CDT Rocky Bruno MD LAB POCT ORDERABLES - DEVICE Fi nal Result Performing Organization Address [facility] Co de Phone Number [facility] Department [place] [address] * (ABNORMAL) CBC without differential (11/15/2024 10:00 AM CDT) [facility] WBC 6.37 3.80 - 9.90 K/cumm Hgb 10.7(L) 13.0 - 17.5 g/dL [facility] Hct 30.5(L) 38.9 - 50.3 % [facility] Plt 199 150 - 400 K/cumm [facility] MPV 10.8 9.1 - 12.3 fL [facility] RBC 3.49(L) 4.30 - 5.80 M/cumm [facility] MCV 87.4 81.3 - 96.4 fL [facility] MCH 30.7 27.1 - 33.3 pg [facility] MCHC 35.1 32.3 - 35.7 g/dL [facility] RDW CV 13.4 11.1 - 14.9 % [facility] RDW SD 41.9 35.7 - 48.1 fL [facility] NRBC abs 0.00 0.00 - 0.01 K/cumm [facility] Blood 11/15/2024 10:0 0 AM CDT 11/15/2024 10:34 AM CDT Narrative [facility] - 11/15/2024 10:48 AM CDT To be drawn after hydration bolus complete Rocky Bruno MD LAB BLOOD ORDERABLES Final Resu lt Performing Organization Address [facility] Co de Phone Number [facility] [place] [address] * (ABNORMAL) POC Blood Gas and Chemistries, Arterial - (11/15/2024 8:06 AM CDT) [facility] K POC 4.2 3.3 - 4.9 mmol/L Comment: Interpretive Data Not all point of care methods assess for hemolysis. Confirm with instrument and retest K+ if not consistent with clinical signs and symptoms. Current Interpretive Data was last revised on 2023. Glucose, POC 209(H) 70 - 199 mg/dL [facility] Blood 11/15/2024 8:06 AM CDT 11/15/2024 8:06 AM CDT Rocky Bruno MD LAB POCT ORDERABLES - DEVICE Fi nal Result Performing Organization Address [facility]/ZIP Co de Phone Number [facility] [place] [address] * POC Blood Gas and Chemistries, Arterial - (11/15/2024 7:50 AM CDT) K POC Incalculable 3.3 - 4.9 mmol/L Comment: Interpretive Data Not all point of care methods assess for hemolysis. Confirm with instrument and retest K+ if not consistent with clinical signs and symptoms. Current Interpretive Data was last revised on 2023. Glucose, POC Incalculable 70 - 199 mg/dL [facility] Blood 11/15/2024 7:50 AM CDT 11/15/2024 7:50 AM CDT us Rocky Bruno MD LAB POCT ORDERABLES - DEVICE Fi nal Result [facility] [place] [address] * (ABNORMAL) eGFR (11/08/2024 3:34 PM CDT) eGFR 50(L) >=60 mL/min/1. 73 m2 Comment: Interpretive Data Reference Interval Normal >/= 90 mL/min/1.73m2 Mildly decreased* 60 - 89 mL/min/1.73m2 Mildly to moderately decreased 45 - 59 mL/min/1.73m2 Moderately to severely decreased 30 - 44 mL/min/1.73m2 Severely decreased 15 - 29 mL/min/1.73m2 Kidney Failure < 15 mL/min/1.73m2 *Relative to young adult level Estimated glomerular filtration rate is determined by the 2020 CKD-EPI equation recommended by the National Kidney Foundation (A Unifying Approach to GFR Estimation: Recommendations of the NKF-ASK Task Force on Reassessing the Inclusion of Race in Diagnosing Kidney Disease, JASN 2020). The CKD-EPI equation should not be used for patients with unstable renal function and has not been validated in children and those over 70. Current interpretive data was last reviewed 2021. Blood 11/08/2024 3:34 PM CDT 11/08/2024 4:36 PM CDT us Jayesh Freedman MD LAB BLOOD ORDERABLES Final Res ult WANDA COKER [address] [address] [facility]. [place] [address] * (ABNORMAL) Differential, auto (11/08/2024 3:34 PM CDT) Neutrophil abs 4.31 1.50 - 6.50 K/cumm Imm gran abs 0.02 0.00 - 0.10 K/cumm [facility] Lymphocyte abs 1.98 0.80 - 3.30 K/cumm [facility] Monocyte abs 0.82(H) 0.20 - 0.80 K/cumm [facility] Eosinophil abs 0.24 0.00 - 0.50 K/cumm [facility] Basophil abs 0.05 0.00 - 0.10 K/cumm CERNER BJW Neutrophil pct 58.0 % [facility] Comment: Interpretive Data Percent cell count reference ranges are not reported, since discordance with absolute values may lead to misinterpretation of CBC data. Current Interpretive Data was last revised on 2017. Imm gran pct 0.3 % [facility] Comment: Interpretive Data Percent cell count reference ranges are not reported, since discordance with absolute values may lead to misinterpretation of CBC data. Current Interpretive Data was last revised on 2017. Lymphocyte pct 26.7 % WANDA COKER Comment: Interpretive Data Percent cell count reference ranges are not reported, since discordance with absolute values may lead to misinterpretation of CBC data. Current Interpretive Data was last revised on 2017. Monocyte pct 11.1 % WANDA COKER Comment: Interpretive Data Percent cell count reference ranges are not reported, since discordance with absolute values may lead to misinterpretation of CBC data. Current Interpretive Data was last revised on 2017. Eosinophil pct 3.2 % [facility] Comment: Interpretive Data Percent cell count reference ranges are not reported, since discordance with absolute values may lead to misinterpretation of CBC data. Current Interpretive Data was last revised on 2017. Basophil pct 0.7 % WANDA RODRIGUESWCH Comment: Interpretive Data Percent cell count reference ranges are not reported, since discordance with absolute values may lead to misinterpretation of CBC data. Current Interpretive Data was last revised on 2017. Blood 11/08/2024 3:34 PM CDT 11/08/2024 4:36 PM CDT us Jayesh Freedman MD LAB BLOOD ORDERABLES Final Res ult WANDA COKER [address] [facility]. Department [place] [place] [address] * Pro B-type natriuretic peptide (11/08/2024 3:34 PM CDT) NT-proBNP 153 <=450 pg/mL Comment: Interpretive Comments: A. Dyspnea in Acute Care Setting All Ages: < 300 pg/ml, acute heart failure unlikely. < 50 yrs: 300 - 450 pg/ml, further investigation warranted. > 450 pg/ml, acute heart failure likely. 50 - 74 yrs: 300 - 900 pg/ml, further investigation warranted. > 900 pg/ml, acute heart failure likely . > or = 75 yrs: 450 - 1800 pg/ml, further investigation warranted. > 1800 pg/ml, acute heart failure likely. B. Non-acute Setting < 75 yrs < 125 pg/ml, rules out heart failure. > or = 125 pg/ml, further investigation warranted. > or = 75 yrs < 450 pg/ml, rules out heart failure. > or = 450 pg/ml, further investigation warranted. - Knowledge of each individual patient's NT-proBNP range may be more useful than using similar cut-points for every patient. Please note that marked elevations in NT-proBNP levels may be observed in state other than Left Ventricular Congestive Failure, including: acute coronary syndromes, right heart strain/failure (including pulmonary embolism and cor pulmonale), critical illness, renal failure, as well as advanced age. - References: 1. Dylan EPPERSON et.al. Eur Heart J. 2006:27:330-337. 2. Analia RW, Angelina AM. J. AM Humberto Cardiol: Cardiovasc Imag. 2009;2: 216- 225. Interpretive Data Last Revised Date: 2018. Blood 11/08/2024 3:34 PM CDT 11/08/2024 4:36 PM CDT Jayesh Freedman MD LAB BLOOD ORDERABLES Final Res ult Performing Organization Address [facility]/ZIP Co de Phone Number WANDA COKER [address] [facility] [employer] [place], [place] [id number] * (ABNORMAL) CBC with auto differential (11/08/2024 3:34 PM CDT) WBC 7.42 3.80 - 9.90 K/cumm Hgb 13.3 13.0 - 17.5 g/dL [facility] Hct 38.3(L) 38.9 - 50.3 % [facility] Plt 255 150 - 400 K/cumm [facility] MPV 10.3 9.1 - 12.3 fL [facility] RBC 4.22(L) 4.30 - 5.80 M/cumm [facility] MCV 90.8 81.3 - 96.4 fL [facility] MCH 31.5 27.1 - 33.3 pg [facility] MCHC 34.7 32.3 - 35.7 g/dL [facility] RDW CV 13.2 11.1 - 14.9 % [facility] RDW SD 43.5 35.7 - 48.1 fL [facility] NRBC abs 0.00 0.00 - 0.01 K/cumm [facility] Blood 11/08/2024 3:34 PM CDT 11/08/2024 4:36 PM CDT Jayesh Freedman MD LAB BLOOD ORDERABLES Final Res ult WANDA COKER [address] [facility] [employer] [place], [place] [id number] * Lipoprotein a (LPa) (11/08/2024 3:34 PM CDT) Lipoprotein A <7 <75 nmol/L [place] ref Lab Comment: ADDITIONAL INFORMATION Please notice that Lp(a) values are reported in molar units (nmol/L). These units are recommended by professional society guidelines and expert opinion statements. Measured results and risk thresholds are higher than those generated using mass units (mg/dL). Cardiovascular risk increases starting at 75 nmol/L. Lp(a) >=125 nmol/L is considered a risk enhancing factor by the [place] Heart Association. This test has been modified from the radiation engineer's instructions. Its performance characteristics were determined by [facility] in a manner consistent with CLIA requirements. This test has not been cleared or approved by the U.S. Food and Drug Administration. Test Performed by: [facility] [place] [address] [employer] Head: Manuela Costa Ph.D.; CLIA# [id number] Blood 11/08/2024 3:34 PM CDT 11/08/2024 4:36 PM CDT us Jayesh Freedman MD LAB BLOOD ORDERABLES Final Res ult WANDA RAVIWCH [address] [facility]. [place] [address] [place] ref Lab * Protime-INR (11/08/2024 3:34 PM CDT) PT 11.2 9.7 - 13.0 sec INR 1.04 0.90 - 1.20 WANDA COKER Comment: Interpretive data Oral anticoagulant therapeutic ranges: Venous thromboembolism prophylaxis or treatment: 2.0-3.0 CARDIOLOGY Standard range: 2.0-3.0 High-intensity range: 2.5-3.5 Refer to indication-specific guidelines for appropriate target ranges for prosthetic heart valve replacement. Current interpretive data was last revised on 2019. Blood 11/08/2024 3:3 4 PM CDT 11/08/2024 4:36 PM CDT Jayesh Freedman MD LAB BLOOD ORDERABLES Final Res ult Performing Organization Address [facility] Co de Phone Number [facility] [address] [facility] [place] [address] * CRP (cardiac risk) (11/08/2024 3:34 PM CDT) Pathologist [facility] hsCRP 3.29 mg/L Comment: Interpretive data Adult only - values greater than or equal to 10 mg/L are consistent with infection or inflammation. Individuals with evidence of active infection, systemic inflammatory processes, or trauma should not be tested until these conditions have abated. When using HS CRP to assess cardiovascular risk, two measurements should be taken, two weeks apart (averaging results). The CDC/AHA recommended the following HS CRP cut off points (tertiles) for CVD assessment. Adult low risk <1.0 mg/L Average risk 1.0 - 3.0 mg/L High Risk >3.0 mg/L Current interpretive data was last revised on 2018. Blood 11/08/2024 3:34 PM CDT 11/08/2024 4:36 PM CDT Jayesh Freedman MD LAB BLOOD ORDERABLES Final Res ult Performing Organization Address [facility] de Phone Number WANDA RODRIGUESCH [address] [facility] [place] [address] * (ABNORMAL) Hemoglobin A1c (11/08/2024 3:34 PM CDT) Pathologist [facility] Hgb A1C 7.4(H) 4.0 - 5.6 % Estimated Average Glucose 166 mg/dL WANDA COKER Comment: The ADA recommends reporting an estimated Average Glucose (eAG) with all Hemoglobin A1c results using the equation derived from a study of 507 normal and diabetic adults. Minority populations were underrepresented and children were not included. (Diabetes Care 31:5706-3960, 2008). The eAG is not equivalent to a fasting glucose. Blood 11/08/2024 3:34 PM CDT 11/08/2024 4:36 PM CDT Jayesh Freedman MD LAB BLOOD ORDERABLES Final Res ult WANDA COKER [address] [facility]. [place] [address] * (ABNORMAL) Comprehensive metabolic panel (11/08/2024 3:34 PM CDT) Pathologist [facility] Sodium 138 135 - 145 mmol/L Potassium, pl 5.0(H) 3.3 - 4.9 mmol/L [facility] Chloride 100 97 - 110 mmol/L [facility] CO2 24 22 - 32 mmol/L [facility] Anion gap 14 2 - 15 mmol/L [facility] BUN 39(H) 6 - 25 mg/dL [facility] Creatinine 1.44(H) 0.80 - 1.30 mg/dL [facility] Glucose 353(H) 70 - 199 mg/dL [facility] Comment: Interpretive Data Fasting glucose >/= 126 mg/dl is diagnostic for diabetes. Fasting is defined as no caloric intake for at least 8 hours. Fasting glucose between 100 mg/dl to 125 mg/dl is diagnostic of prediabetes. In a patient with classic symptoms of hyperglycemia or hyperglycemic crisis, a random glucose >/= 200 mg/dl is diagnostic for diabetes. In the absence of unequivocal hyperglycemia, results should be confirmed by repeat testing. The classification and Diagnosis of Diabetes Diabetes Care 2021; 46: S19-S40. Current interpretive data was last revised 2022. Calcium 9.9 8.5 - 10.3 mg/dL [facility] Bilirubin, total 0.3 0.1 - 1.2 mg/dL [facility] Protein, pl 7.0 6.5 - 8.5 g/dL [facility] Albumin 4.1 3.5 - 5.0 g/dL [facility] Alk phos 53 40 - 130 Units/L [facility] ALT 55 7 - 55 Units/L [facility] AST 25 10 - 50 Units/L [facility] Blood 11/08/2024 3:34 PM CDT 11/08/2024 4:36 PM CDT Jayesh Freedman MD LAB BLOOD ORDERABLES Final Res ult WANDA MCCALLCH [address] [facility]. Department [place] [place] [address] * ECG 12 lead (11/08/2024 2:22 PM CDT) Jayesh Freedman MD ECG ORDERABLES Final Result * CT TAVR (11/08/2024 10:55 AM CDT) Anatomical Region Laterality Modality Chest N/A Computed Tomogra phy 11/08/2024 1:34 PM CDT Impressions 11/08/2024 3:28 PM CDT 1. Aortic valvular stenosis. 2. Aortic annulus, and abdominal aortic, common iliac, external iliac and femoral artery measurements in preparation for TAVR procedure as described above. 3. Aortic valve calcium score: Agatston 845, Volume 659 mm3. 4. Left thyroid nodule, which could be characterized with ultrasound as clinically indicated. Dictated by: Tenzin Fregoso MD The radiology attending physician has personally reviewed this study, and had reviewed and/or edited this written report and agrees with it. Electronically signed by: Grace Quiros M.D. Narrative 11/08/2024 3:28 PM CDT EXAMINATION: Heart CT and CTA abdomen and pelvis with contrast. History: Severe aortic stenosis, pre-TAVR procedure. Technique: Heart CT and CT angiogram of the abdomen and pelvis performed during administration of 130 mL of Optiray 350, intravenously per TAVR Protocol. Images were transferred to an independent workstation for additional 3D post-processing. FINDINGS: Annulus and Thoracic Aortic Measurements (in systole): Aortic valve annulus: Area 335 mm2: circumference 69 mm; 25 mm maximum diameter x 18 mm minimum diameter. Sinuses of Valsalva: 31 x 31 x 28 mm cusp to commissure Sinotubular junction: 24 x 25 mm Descending aorta: 35 x 34 mm Aortic valve calcium score: Agatston 845, Volume 659mm3. Coronary sinus heights: Right coronary sinus height: 24 Left coronary sinus height: 21 Non-coronary sinus height: 26 There is Moderate left ventricular outflow tract calcification. There is Mild mitral annular calcification. Distance to RCA ostium from aortic valve annulus: 21 mm Distance to left main ostium from annulus: 16 mm Deployment angle: 0 ANGULO, 0 Caudal Coronary Arteries: Anomalous coronary artery course: No Left main atherosclerosis: Mild LAD atherosclerosis: Severe Circumflex atherosclerosis: Moderate RCA atherosclerosis: Moderate Abdominal Aortic and Pelvic Arterial Smallest Diameter Measurements (made from centerline curved MPRs): Infrarenal aorta: 15 mm x 15 mm Right common iliac artery: 8 mm x 8 mm. There is no calcification. Left common iliac artery: 9 mm x 9 mm . There is no calcification. There is no significant tortuosity of the bilateral common iliac arteries. . Right external iliac artery: 6 mm x 7 mm. There is no calcification. Left external iliac artery: 7 mm x 8 mm. There is no calcification. There is no significant tortuosity of the bilateral external iliac arteries. Right common femoral artery: 7 mm x 7 mm. There is Mild calcification. Left common femoral artery: 6 mm x 7 mm. There is Mild calcification. There is no significant tortuosity of the bilateral femoral arteries. Other findings: Lungs are clear. No consolidation or pulmonary edema. No pleural effusion or pneumothorax. Central airways are unremarkable. Heart size is normal. There are mitral annular calcifications and left ventricular outflow calcifications. Heart size is normal. No pleural effusion. No anomalous coronary artery origin. There is three-vessel coronary artery calcifications. Main pulmonary arteries normal in caliber. No thoracic lymphadenopathy. Left thyroid is diffusely enlarged with a 2.6 cm left thyroid nodule. There is mild bilateral gynecomastia. No biliary ductal dilation. Gallbladder is normal. Spleen is normal. Pancreas normal. Adrenal glands normal. Kidneys enhance symmetrically. No hydronephrosis. Urinary bladder is unremarkable. Prostate is mildly enlarged. There are bilateral fat-containing inguinal hernias. Stomach is nondistended. Duodenal sweep is normal. There is no bowel obstruction. Appendix is normal. No ascites or pneumoperitoneum. No abdominopelvic lymphadenopathy. No aggressive osseous abnormality. Procedure Note Grace Quiros MD PhD - 06/17/2025 EXAMINATION: Heart CT and CTA abdomen and pelvis with contrast. History: Severe aortic stenosis, pre-TAVR procedure. Technique: Heart CT and CT angiogram of the abdomen and pelvis performed during administration of 130 mL of Optiray 350, intravenously per TAVR Protocol. Images were transferred to an independent workstation for additional 3D post-processing. FINDINGS: Annulus and Thoracic Aortic Measurements (in systole): Aortic valve annulus: Area 335 mm2: circumference 69 mm; 25 mm maximum diameter x 18 mm minimum diameter. Sinuses of Valsalva: 31 x 31 x 28 mm cusp to commissure Sinotubular junction: 24 x 25 mm Descending aorta: 35 x 34 mm Aortic valve calcium score: Agatston 845, Volume 659mm3. Coronary sinus heights: Right coronary sinus height: 24 Left coronary sinus height: 21 Non-coronary sinus height: 26 There is Moderate left ventricular outflow tract calcification. There is Mild mitral annular calcification. Distance to RCA ostium from aortic valve annulus: 21 mm Distance to left main ostium from annulus: 16 mm Deployment angle: 0 ANGULO, 0 Caudal Coronary Arteries: Anomalous coronary artery course: No Left main atherosclerosis: Mild LAD atherosclerosis: Severe Circumflex atherosclerosis: Moderate RCA atherosclerosis: Moderate Abdominal Aortic and Pelvic Arterial Smallest Diameter Measurements (made from centerline curved MPRs): Infrarenal aorta: 15 mm x 15 mm Right common iliac artery: 8 mm x 8 mm. There is no calcification. Left common iliac artery: 9 mm x 9 mm . There is no calcification. There is no significant tortuosity of the bilateral common iliac arteries. . Right external iliac artery: 6 mm x 7 mm. There is no calcification. Left external iliac artery: 7 mm x 8 mm. There is no calcification. There is no significant tortuosity of the bilateral external iliac arteries. Right common femoral artery: 7 mm x 7 mm. There is Mild calcification. Left common femoral artery: 6 mm x 7 mm. There is Mild calcification. There is no significant tortuosity of the bilateral femoral arteries. Other findings: Lungs are clear. No consolidation or pulmonary edema. No pleural effusion or pneumothorax. Central airways are unremarkable. Heart size is normal. There are mitral annular calcifications and left ventricular outflow calcifications. Heart size is normal. No pleural effusion. No anomalous coronary artery origin. There is three-vessel coronary artery calcifications. Main pulmonary arteries normal in caliber. No thoracic lymphadenopathy. Left thyroid is diffusely enlarged with a 2.6 cm left thyroid nodule. There is mild bilateral gynecomastia. No biliary ductal dilation. Gallbladder is normal. Spleen is normal. Pancreas normal. Adrenal glands normal. Kidneys enhance symmetrically. No hydronephrosis. Urinary bladder is unremarkable. Prostate is mildly enlarged. There are bilateral fat-containing inguinal hernias. Stomach is nondistended. Duodenal sweep is normal. There is no bowel obstruction. Appendix is normal. No ascites or pneumoperitoneum. No abdominopelvic lymphadenopathy. No aggressive osseous abnormality. IMPRESSION: 1. Aortic valvular stenosis. 2. Aortic annulus, and abdominal aortic, common iliac, external iliac and femoral artery measurements in preparation for TAVR procedure as described above. 3. Aortic valve calcium score: Agatston 845, Volume 659 mm3. 4. Left thyroid nodule, which could be characterized with ultrasound as clinically indicated. Dictated by: Tenzin Fregoso MD The radiology attending physician has personally reviewed this study, and had reviewed and/or edited this written report and agrees with it. Electronically signed by: Grace Quiros M.D. Jayesh Freedman MD IMG CT PROCEDURES Final Result * (ABNORMAL) POC ISTAT (11/08/2024 10:42 AM CDT) Creatinine, POC, bld 1.6(H) 0.6 - 1.3 mg/dL POC Device Number [id number] WANDA MCCALLCH POC Performer [id number] WANDA COKER Blood 11/08/2024 10:4 2 AM CDT 11/08/2024 10:42 AM CDT Jayesh Freedman MD LAB BLOOD ORDERABLES Final Res ult WANDA RODRIGUESWCH [address] [facility]. Department [place] [address] from Last 3 Months Insurance AETNA MEDICARE [facility] AETNA MEDICARE GOLD AETNA MEDICARE GOLD Advance Directives For more information, please contact: [phone] Documents on File Type Date Recorded Patient Machine Clipper Expl anation Power of Package Collector 12/01/2024 5:43 PM * Full Code (Latest Code Status on File) Date Activated Date Inactivated Comments 01/02/2025 9:54 PM 01/12/2025 8:11 PM * Full Code Date Activated Date Inactivated Comments 12/02/2024 12:53 AM 12/27/2024 6:46 PM * Full Code Date Activated Date Inactivated Comments 11/15/2024 11:58 AM 11/15/2024 5:56 PM Care Teams Client Customer Manager Relationship Specialty Start Date End Date Anthony Hogan DO [address] [facility] [address] [place] [id number] PCP - General Internal Medicine 08/25/24 Liam Norris MD [address] [facility] [address] [place] [address] Referring Physician Cardiology 10/19/24 Meño Chandra MD [id number] [place] [address] Consulting Physician Cardiothoracic Surgery 12/27/24 Miscellaneous, Not In File 12/27/24
--- OUTSIDE RECORDS SUMMARY | 2025-02-02 01:11 | XMS_ITS | Encounter Summary ---
Author Organization [facility] Healthcare Address [address] [place] [address] Care Team Providers Care Manager Quality Compliance Name Role Phone Anthony Hogan DO Primary Care Provider [phone]- [phone] Liam Norris MD Unavailable Meño Yeager MD Unavailable +1- [phone] Miscellaneous, Not In File Unavailable Unava ilable Encounter Details Date Type Department Care Team (Late st Contact Info) Description 09/20/2024 Telephone [facility] [address] [place], [place] [id number] Luzmaria Conrad RN Social History Tobacco Use Types Packs/Day Years Used Date Smoking Tobacco: Some Days Cigars Smokeless Tobacco: Never Alcohol Use Standard Drinks/Week Comments Not Currently 0 (1 standard drink = 0.6 oz pur e alcohol) former alcoholic Sex and Gender Information Value Date Recorded Sex Assigned at Not on file 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 auris 12/02/2024 12/02/2024 12/19/2024 3:05 PM CDT COVID: Suspected 12/13/2024 12/13/2024 12/13/2024 10:42 AM CDT LTAC Screening Comment:[facility] 01/02/2025 01/02/2025 01/03/2025 8:47 A M CDT documented as of this encounter Care Teams Manager Quality Compliance Relationship Specialty Start Date End Date Anthony Hogan DO [address] [facility] [address] [place] [address] PCP - General Internal Medicine 08/25/24 Liam Norris MD [address] [facility] [address] [place] [address] Referring Physician Cardiology 10/19/24 Meño Yeager MD [id number] [place] [address] Consulting Physician Cardiothoracic Surgery 12/27/24 Miscellaneous, Not In File 12/27/24 documented as of this encounter
[2025-02-02 01:12] LABS: Fractional Inspired Oxygen 21 %; HCO3 VBG 18.5 mEq/l (24.0-30.0); PCO2 VBG 38.0 mmHg (42.0-48.0); PO2 VBG 54.1 mmHg (35.0-45.0); pH VBG 7.306 (7.300-7.400)
[2025-02-02 01:15] LABS: INR 2.5; Prothrombin Time 26.7 Seconds (11.1-14.7)
[2025-02-02 01:17] LABS: Partial Thromboplastin Time 35.7 Seconds (22.3-36.8)
[2025-02-02 01:20] LABS: Alanine Aminotransferase 172 U/L (6-50); Albumin Level 3.4 g/dL (3.5-5.1); Alkaline Phosphatase 184 U/L (38-126); Anion Gap 14 mmol/L (4-12); Aspartate Amino Transferase 87 U/L (17-59); Bilirubin,Total 0.4 mg/dL (0.2-1.3); Blood Urea Nitrogen 74 mg/dL (9-20); Calcium 8.2 mg/dL (8.4-10.2); Carbon Dioxide 19 mmol/L (22-30); Chloride 102 mmol/L (98-107); Estimated Glomerular Filt Rate 8; Glucose 94 mg/dL (65-110); Lipase 343 U/L (23-300); Magnesium 2.7 mg/dL (1.6-2.3); Potassium 5.4 mmol/L (3.4-5.0); Sodium 135 mmol/L (137-145); Total Protein 6.5 g/dL (6.3-8.2)
[2025-02-02 01:28] LABS: NT Pro B Type Natriuretic Pept 14400 pg/mL (19.9-100); Troponin I 0.043 ng/mL (0.000-0.034)
[2025-02-02 01:29] LABS: Hematocrit 30.7 % (42.0-52.0); Hemoglobin 9.3 g/dL (14.0-18.0); Immature Granulocyte Percent A 1.3 % (0-0.5); Lymphocytes Absolute Auto 1.42 K/mm3 (0.9-3.2); Mean Corpuscular HGB Conc 30.3 g/dl (32-36); Mean Corpuscular Hemoglobin 29.5 pg (26-34); Mean Corpuscular Volume 97.5 fl (80-100); Nucleated Red Blood Cells Absolute Auto 0.000 K/mm3 (0.0-0.012); Nucleated Red Blood Cells Perc 0.0 % (0.0-0.2); Platelet Count Result 283 k/mm3 (150-375); Red Blood Count 3.15 M/mm3 (4.6-6.20); White Blood Count 8.9 K/mm3 (4.5-10.0)
[2025-02-02 01:42] LABS: Influenza A QL RT-PCR Negative (Negative); Influenza B QL RT-PCR Negative (Negative); RSV RNA, RT-PCR Negative (Negative); SARS-CoV-2 RNA PCR Negative (Negative)
[2025-02-02 01:45] LABS: Thyroid Stimulating Hormone Reflex 5.750 uIU/mL (0.465-4.68)
[2025-02-02] MEDS: DEXTROSE 10% 1,000 ML 75 ML IV CONT (01:49)
[2025-02-02] MEDS: CEFEPIME 2 GM in SODIUM CHLORIDE 0.9% IV 50 ML 100 ML IVPB (02:00)
--- NOTE | 2025-02-02 02:31 | PC.NURSE ---
BG 67, MD Hendrix made aware. Per MD increase D10 to 125mL/HR.
[2025-02-02 02:49] LABS: Add Urine Microscopic? YES; Appearance Urine Turbid (Clear); Glucose Urine UA 2+ mg/dL (Negative); Leukocyte Esterase Ur Negative LEU/UL (Negative); Nitrate Urine Negative (Negative); Non Pathogenic Casts >20; Specific Grav Ur 1.025 (1.001-1.035)
[2025-02-02] MEDS: VANCOMYCIN 2,000 MG/NS 500 ML 2,000 MG/500 ML BAG 250 MG IVPB (03:03)
[2025-02-02] MEDS: LACTATED RINGERS 1,000 ML 999 ML IV CONT (03:34)
[2025-02-02 03:51] LABS: Free T4 Free Thyroxine Reflex 1.67 ng/dL (0.78-2.19)
[2025-02-02] MEDS: MIDAZOLAM HCL (*CRX) 2 MG/2 ML VIAL IV PUSH (03:55)
[2025-02-02] MEDS: NOREPINEPHRINE 8 MG/D5W 250 ML 8 MG/250 ML BAG 9.38 MG IV CONT (04:23)
[2025-02-02 04:45] LABS: Total Triiodothyronine (T3) 0.51 NG/ML (0.82-1.58)
--- NOTE | 2025-02-02 04:48 | PC.NURSE ---
Report given to EMS, copy of chart, disc with imagining, PCS and authorization for transfer. Pt leaving ED with Levo running via central line, IV 18G L and 18G R AC.
[2025-02-02 05:01] LABS: Troponin I 0.031 ng/mL (0.000-0.034)
--- NOTE | 2025-02-02 14:19 | ECG_ITS ---
Test Date: 2025-02-02 05:05:37 Measurements Intervals [place] Rate: 59 P: 61 NJ: 256 QRS: -10 QRSD: 109 T: 39 QT: 448 QTc: 447 Interpretive Statements ELECTRONIC ATRIAL PACEMAKER NONSPECIFIC ST & T-WAVE ABNORMALITY Compared to ECG 02/02/2025 00:39:17 NO SIGNIFICANT CHANGES Electronically Signed On 02-03-2025 14:59:47 CDT by Blaine Renee M.D.
--- OUTSIDE RECORDS SUMMARY | 2025-03-24 19:00 | XMS_ITS | Clinical Summary ---
Author Organization Unknown Care Team Providers Care Instructor Weaving Name Role Phone SATYAROOSEVELT , STEPHANI Unavailable Unavailable ROBIN RN, KAYLA Unavailable Unavailnithin SANCHEZ OT, MARINA Unavailable Unavailable CHRIS PT, MONROE Unavailable Unavailable [facility] RECEPTIONIST, CAROLE Unavailable Unavailable WILBERTO TRAFFIC SURVEY TECHNICIAN, STEPHY Unavailable Unavailable Payers Payer Name Policy Type Policy Number Effective Date Expira tion Date [facility] [id number] Problems Condition Name Condition Details Condition Category Status Onset Date Resolution Date Last Treatment Date Treating Clinician Comments UNSPECIFIED ATRIAL FIBRILLATION Active 01-19 00:00: 00 Allergies, Adverse Reactions, Alerts Allergy Name Allergy Type Status Severity Reaction(s) Onset Date Inactive Date Treating Clinician Comments NO KNOWN ALLERGIES Propensity to adverse reactions Active 01-25 11:54: 43 Vital Signs Vital Name Observation Time Observation Value Commen ts Temperature 2025-02-01 12:30:00.000 98.2 [degF] Temperature 2025-02-01 11:58:00.000 98.2 [degF] Temperature 2025-01-29 14:31:00.000 97.7 [degF] Temperature 2025-01-27 09:15:00.000 96.1 [degF] Temperature 2025-01-25 12:26:00.000 97.9 [degF] Temperature 2025-01-25 12:25:00.000 97.9 [degF] BMI (%) 2025-01-25 12:13:06.000 39 kg/m2 Height 2025-01-25 12:12:45.000 70 [in_us] Pulse 2025-02-01 12:30:00.000 68 /min Pulse 2025-02-01 11:58:00.000 60 /min Pulse 2025-01-29 14:31:00.000 62 /min Pulse 2025-01-27 09:15:00.000 60 /min Pulse 2025-01-25 12:26:00.000 60 /min Pulse 2025-01-25 12:25:00.000 60 /min O2 Saturation (%) 2025-02-01 12:30:00.000 96 % O2 Saturation (%) 2025-02-01 11:58:00.000 96 % O2 Saturation (%) 2025-01-29 14:31:00.000 97 % O2 Saturation (%) 2025-01-27 09:15:00.000 95 % Respirations 2025-02-01 12:30:00.000 18 /min Respirations 2025-02-01 11:58:00.000 20 /min Respirations 2025-01-29 14:31:00.000 18 /min Respirations 2025-01-27 09:15:00.000 18 /min Respirations 2025-01-25 12:26:00.000 18 /min Respirations 2025-01-25 12:25:00.000 18 /min Weight (lbs) 2025-02-01 11:58:00.000 275 [lb_av] Weight (lbs) 2025-01-25 12:13:06.000 275 [lb_av] Systolic Blood Pressure 2025-02-01 12:30:00.000 128 mm [Hg] Systolic Blood Pressure 2025-02-01 11:58:00.000 120 mm [Hg] Systolic Blood Pressure 2025-01-29 14:31:00.000 118 mm [Hg] Systolic Blood Pressure 2025-01-27 09:15:00.000 132 mm [Hg] Systolic Blood Pressure 2025-01-25 12:26:00.000 126 mm [Hg] Systolic Blood Pressure 2025-01-25 12:25:00.000 126 mm [Hg] Diastolic Blood Pressure 2025-02-01 12:30:00.000 52 mm [Hg] Diastolic Blood Pressure 2025-02-01 11:58:00.000 52 mm [Hg] Diastolic Blood Pressure 2025-01-29 14:31:00.000 58 mm [Hg] Diastolic Blood Pressure 2025-01-27 09:15:00.000 50 mm [Hg] Diastolic Blood Pressure 2025-01-25 12:26:00.000 56 mm [Hg] Diastolic Blood Pressure 2025-01-25 12:25:00.000 56 mm [Hg] Plan of Treatment Planned Activity Planned Date Details Comments Future Scheduled Test RN TO OBSE RVE, ASSESS, EVALUATE, AND DEVELOP AN INDIVIDUALIZED PLAN OF CARE. AGENCY MAY ACCEPT ORDERS FROM CONSULTING PHYSICIANS ANNY RN TO OBSERVE AND ASSESS, CAMPUS RECEPTIONIST/EMPLOYEE RELATIONS CONSULTANT TO OBSERVE FOR RISK FOR FALLS AND INSTRUCT IN FALL PREVENTION, HOME SAFETY, MEDICATION MANAGEMENT, INFECTION PREVENTION, AND NUTRITION MANAGEMENT. RN/CAMPUS RECEPTIONIST/EMPLOYEE RELATIONS CONSULTANT NURSE MAY PERFORM O2 SATURATION LEVEL ON ADMISSION AND PRN FOR EVERY VISIT FOR RN TO ASSESS/CAMPUS RECEPTIONIST TO OBSERVE PATIENT, WITH NOTIFICATION TO THE PHYSICIAN IF SATURATION IS 90% IN THE ABSENCE OF MORE SPECIFIC PARAMETERS FROM THE PHYSICIAN. AGENCY MAY PERFORM A RESUMPTION OF CARE VISIT FOLLOWING ANY HOSPITAL ADMISSION. RN/CAMPUS RECEPTIONIST/EMPLOYEE RELATIONS CONSULTANT TO MONITOR CO-MORBID CONDITIONS LISTED ON THE PLAN OF CARE AND ANY NEW CONDITIONS THAT PRESENT THEMSELVES DURING THIS EPISODE TO IDENTIFY CHANGES AND INTERVENE TO MINIMIZE COMPLICATIONS. [code = RN TO OBSERVE, ASSESS, EVALUATE, AND DEVELOP AN INDIVIDUALIZED PLAN OF CARE. AGENCY MAY ACCEPT ORDERS FROM CONSULTING PHYSICIANS ANNY RN TO OBSERVE AND ASSESS, CAMPUS RECEPTIONIST/EMPLOYEE RELATIONS CONSULTANT TO OBSERVE FOR RISK FOR FALLS AND INSTRUCT IN FALL PREVENTION, HOME SAFETY, MEDICATION MANAGEMENT, INFECTION PREVENTION, AND NUTRITION MANAGEMENT. RN/CAMPUS RECEPTIONIST/EMPLOYEE RELATIONS CONSULTANT NURSE MAY PERFORM O2 SATURATION LEVEL ON ADMISSION AND PRN FOR EVERY VISIT FOR RN TO ASSESS/CAMPUS RECEPTIONIST TO OBSERVE PATIENT, WITH NOTIFICATION TO THE PHYSICIAN IF SATURATION IS 90% IN THE ABSENCE OF MORE SPECIFIC PARAMETERS FROM THE PHYSICIAN. AGENCY MAY PERFORM A RESUMPTION OF CARE VISIT FOLLOWING ANY HOSPITAL ADMISSION. RN/CAMPUS RECEPTIONIST/EMPLOYEE RELATIONS CONSULTANT TO MONITOR CO-MORBID CONDITIONS LISTED ON THE PLAN OF CARE AND ANY NEW CONDITIONS THAT PRESENT THEMSELVES DURING THIS EPISODE TO IDENTIFY CHANGES AND INTERVENE TO MINIMIZE COMPLICATIONS.] Future Scheduled Test MEDICATION MANAGEMENT; RN/CAMPUS RECEPTIONIST/EMPLOYEE RELATIONS CONSULTANT TO REVIEW MEDICATIONS FOR INTERACTIONS, EFFECTIVENESS OF DRUG THERAPY, AND SIGNS/SYMPTOMS OF ADVERSE REACTIONS. MAY INSTRUCT AND REINFORCE MEDICATION TEACHING RELATED TO THE USE OF MEDICATIONS, DOSAGE, FREQUENCY, PURPOSE, SIDE EFFECTS, AND TO REPORT COMPLICATIONS. [code = MEDICATION MANAGEMENT; RN/CAMPUS RECEPTIONIST/EMPLOYEE RELATIONS CONSULTANT TO REVIEW MEDICATIONS FOR INTERACTIONS, EFFECTIVENESS OF DRUG THERAPY, AND SIGNS/SYMPTOMS OF ADVERSE REACTIONS. MAY INSTRUCT AND REINFORCE MEDICATION TEACHING RELATED TO THE USE OF MEDICATIONS, DOSAGE, FREQUENCY, PURPOSE, SIDE EFFECTS, AND TO REPORT COMPLICATIONS.] Future Scheduled Test RISK FOR H OSPITALIZATION; RN TO ASSESS/TEACH, EMPLOYEE RELATIONS CONSULTANT/CAMPUS RECEPTIONIST TO OBSERVE/TEACH PATIENT/CAREGIVER ON RISK FOR HOSPITALIZATION/EMERGENCY ROOM VISITS, TEACH SIGNS AND SYMPTOMS THAT PUT PATIENT AT RISK, WHEN TO NOTIFY NURSE/PHYSICIAN OF COMPLICATIONS/DECLINE, AND WHEN TO CALL 911. [code = RISK FOR HOSPITALIZATION; RN TO ASSESS/TEACH, EMPLOYEE RELATIONS CONSULTANT/CAMPUS RECEPTIONIST TO OBSERVE/TEACH PATIENT/CAREGIVER ON RISK FOR HOSPITALIZATION/EMERGENCY ROOM VISITS, TEACH SIGNS AND SYMPTOMS THAT PUT PATIENT AT RISK, WHEN TO NOTIFY NURSE/PHYSICIAN OF COMPLICATIONS/DECLINE, AND WHEN TO CALL 911.] Future Scheduled Test CARDIOVASC ULAR SYSTEM; RN TO ASSESS/TEACH, CAMPUS RECEPTIONIST/EMPLOYEE RELATIONS CONSULTANT TO OBSERVE/TEACH RELATED TO ALTERED CARDIOVASCULAR STATUS TO MINIMIZE COMPLICATIONS AND REDUCE HOSPITALIZATION. [code = CARDIOVASCULAR SYSTEM; RN TO ASSESS/TEACH, CAMPUS RECEPTIONIST/EMPLOYEE RELATIONS CONSULTANT TO OBSERVE/TEACH RELATED TO ALTERED CARDIOVASCULAR STATUS TO MINIMIZE COMPLICATIONS AND REDUCE HOSPITALIZATION.] Future Scheduled Test CORONARY A RTERY BYPASS GRAFT (CABG); RN TO ASSESS/TEACH, CAMPUS RECEPTIONIST/EMPLOYEE RELATIONS CONSULTANT TO OBSERVE/TEACH WARNING SIGNS AND SYMPTOMS TO AVOID HOSPITALIZATION. MONITOR SURGICAL INCISION SITES FOR S/S OF INFECTION. [code = CORONARY ARTERY BYPASS GRAFT (CABG); RN TO ASSESS/TEACH, CAMPUS RECEPTIONIST/EMPLOYEE RELATIONS CONSULTANT TO OBSERVE/TEACH WARNING SIGNS AND SYMPTOMS TO AVOID HOSPITALIZATION. MONITOR SURGICAL INCISION SITES FOR S/S OF INFECTION.] Future Scheduled Test ARRHYTHMIA MANAGEMENT; RN TO ASSESS AND TEACH, CAMPUS RECEPTIONIST/EMPLOYEE RELATIONS CONSULTANT TO OBSERVE AND TEACH WARNING SIGNS AND SYMPTOMS TO AVOID HOSPITALIZATION. [code = ARRHYTHMIA MANAGEMENT; RN TO ASSESS AND TEACH, CAMPUS RECEPTIONIST/EMPLOYEE RELATIONS CONSULTANT TO OBSERVE AND TEACH WARNING SIGNS AND SYMPTOMS TO AVOID HOSPITALIZATION.] Future Scheduled Test HYPERTENSI ON MANAGEMENT; RN TO ASSESS AND TEACH, CAMPUS RECEPTIONIST/EMPLOYEE RELATIONS CONSULTANT TO OBSERVE AND TEACH WARNING SIGNS AND SYMPTOMS TO AVOID HOSPITALIZATION. [code = HYPERTENSION MANAGEMENT; RN TO ASSESS AND TEACH, CAMPUS RECEPTIONIST/EMPLOYEE RELATIONS CONSULTANT TO OBSERVE AND TEACH WARNING SIGNS AND SYMPTOMS TO AVOID HOSPITALIZATION.] Future Scheduled Test PAIN MANAG EMENT; RN TO ASSESS AND TEACH, EMPLOYEE RELATIONS CONSULTANT/CAMPUS RECEPTIONIST TO OBSERVE AND TEACH AND PROVIDE EDUCATION ON PAIN MANAGEMENT TECHNIQUES. [code = PAIN MANAGEMENT; RN TO ASSESS AND TEACH, EMPLOYEE RELATIONS CONSULTANT/CAMPUS RECEPTIONIST TO OBSERVE AND TEACH AND PROVIDE EDUCATION ON PAIN MANAGEMENT TECHNIQUES.] Future Scheduled Test PRN VISITS ; NUMBER OF RN/CAMPUS RECEPTIONIST/EMPLOYEE RELATIONS CONSULTANT VISITS: 1 RN/CAMPUS RECEPTIONIST/EMPLOYEE RELATIONS CONSULTANT TO PERFORM: CARDIAC MANAGEMENT FOR THE FOLLOWING REASONS: COMPLICATIONS [code = PRN VISITS; NUMBER OF RN/CAMPUS RECEPTIONIST/EMPLOYEE RELATIONS CONSULTANT VISITS: 1 RN/CAMPUS RECEPTIONIST/EMPLOYEE RELATIONS CONSULTANT TO PERFORM: CARDIAC MANAGEMENT FOR THE FOLLOWING REASONS: COMPLICATIONS] Future Scheduled Test PHYSICAL T HERAPIST TO EVALUATE FOR EVALUATION AND TREATMENT [code = PHYSICAL THERAPIST TO EVALUATE FOR EVALUATION AND TREATMENT] Future Scheduled Test OCCUPATION AL THERAPIST TO EVALUATE FOR EVALUATION AND TREATMENT [code = OCCUPATIONAL THERAPIST TO EVALUATE FOR EVALUATION AND TREATMENT] Future Scheduled Test FALL REDUC TION MANAGEMENT; RN TO ASSESS AND OBSERVE, CAMPUS RECEPTIONIST/EMPLOYEE RELATIONS CONSULTANT TO OBSERVE FALL RISK FACTORS AND EDUCATE PATIENT/CAREGIVER ON STRATEGIES TO MINIMIZE THE RISK OF FALLING. [code = FALL REDUCTION MANAGEMENT; RN TO ASSESS AND OBSERVE, CAMPUS RECEPTIONIST/EMPLOYEE RELATIONS CONSULTANT TO OBSERVE FALL RISK FACTORS AND EDUCATE PATIENT/CAREGIVER ON STRATEGIES TO MINIMIZE THE RISK OF FALLING.] Future Scheduled Test DIABETES M ANAGEMENT; RN TO ASSESS AND TEACH, EMPLOYEE RELATIONS CONSULTANT/CAMPUS RECEPTIONIST TO OBSERVE AND TEACH INSTRUCTIONS OF DIABETIC CARE TO INCLUDE: DIET DIABETIC SKIN CARE, SIGNS AND SYMPTOMS OF HYPO/HYPERGLYCEMIA, PROPER ADMINISTRATION OF DIABETIC MEDICATION. RN/EMPLOYEE RELATIONS CONSULTANT/CAMPUS RECEPTIONIST TO INSTRUCT ON DIABETIC FOOT CARE AND MONITOR FOR SKIN LESIONS ON LOWER EXTREMITIES. BLOOD GLUCOSE TESTING TWICE A DAY AND PRN RN TO ASSESS AND TEACH, EMPLOYEE RELATIONS CONSULTANT/CAMPUS RECEPTIONIST TO OBSERVE AND TEACH PATIENT/CAREGIVER ABILITY TO PERFORM AND RECORD BLOOD GLUCOSE TESTING ORDERED AND TO REPORT ABNORMAL FINDINGS TO PHYSICIAN. RN/EMPLOYEE RELATIONS CONSULTANT/CAMPUS RECEPTIONIST MAY PERFORM BLOOD GLUCOSE TEST NEEDED. RN/EMPLOYEE RELATIONS CONSULTANT/CAMPUS RECEPTIONIST TO REPORT TO PHYSICIAN BLOOD GLUCOSE READINGS GREATER THAN 300 OR LESS THAN 70. RN/EMPLOYEE RELATIONS CONSULTANT/CAMPUS RECEPTIONIST TO INSTRUCT PATIENT ON IMPORTANCE OF HGBA1C MONITORING, KIDNEY FUNCTION TEST, EYE AND FOOT EXAMS. [code = DIABETES MANAGEMENT; RN TO ASSESS AND TEACH, EMPLOYEE RELATIONS CONSULTANT/CAMPUS RECEPTIONIST TO OBSERVE AND TEACH INSTRUCTIONS OF DIABETIC CARE TO INCLUDE: DIET DIABETIC SKIN CARE, SIGNS AND SYMPTOMS OF HYPO/HYPERGLYCEMIA, PROPER ADMINISTRATION OF DIABETIC MEDICATION. RN/EMPLOYEE RELATIONS CONSULTANT/CAMPUS RECEPTIONIST TO INSTRUCT ON DIABETIC FOOT CARE AND MONITOR FOR SKIN LESIONS ON LOWER EXTREMITIES. BLOOD GLUCOSE TESTING TWICE A DAY AND PRN RN TO ASSESS AND TEACH, EMPLOYEE RELATIONS CONSULTANT/CAMPUS RECEPTIONIST TO OBSERVE AND TEACH PATIENT/CAREGIVER ABILITY TO PERFORM AND RECORD BLOOD GLUCOSE TESTING ORDERED AND TO REPORT ABNORMAL FINDINGS TO PHYSICIAN. RN/EMPLOYEE RELATIONS CONSULTANT/CAMPUS RECEPTIONIST MAY PERFORM BLOOD GLUCOSE TEST NEEDED. RN/EMPLOYEE RELATIONS CONSULTANT/CAMPUS RECEPTIONIST TO REPORT TO PHYSICIAN BLOOD GLUCOSE READINGS GREATER THAN 300 OR LESS THAN 70. RN/EMPLOYEE RELATIONS CONSULTANT/CAMPUS RECEPTIONIST TO INSTRUCT PATIENT ON IMPORTANCE OF HGBA1C MONITORING, KIDNEY FUNCTION TEST, EYE AND FOOT EXAMS.] Future Scheduled Test PACEMAKER MANAGEMENT; RN/CAMPUS RECEPTIONIST/EMPLOYEE RELATIONS CONSULTANT TO PROVIDE SKILLED TEACHING AND ASSIST WITH MANAGEMENT OF PACEMAKER. [code = PACEMAKER MANAGEMENT; RN/CAMPUS RECEPTIONIST/EMPLOYEE RELATIONS CONSULTANT TO PROVIDE SKILLED TEACHING AND ASSIST WITH MANAGEMENT OF PACEMAKER.] Future Scheduled Test NEUROLOGIC AL SYSTEM MANAGEMENT; RN TO ASSESS AND TEACH, EMPLOYEE RELATIONS CONSULTANT/CAMPUS RECEPTIONIST TO OBSERVE AND TEACH RELATED TO ALTERED NEUROLOGICAL STATUS TO MINIMIZE COMPLICATIONS AND REDUCE HOSPITALIZATION. [code = NEUROLOGICAL SYSTEM MANAGEMENT; RN TO ASSESS AND TEACH, EMPLOYEE RELATIONS CONSULTANT/CAMPUS RECEPTIONIST TO OBSERVE AND TEACH RELATED TO ALTERED NEUROLOGICAL STATUS TO MINIMIZE COMPLICATIONS AND REDUCE HOSPITALIZATION.] Future Scheduled Test CEREBRAL V ASCULAR ACCIDENT MANAGEMENT; RN/EMPLOYEE RELATIONS CONSULTANT/CAMPUS RECEPTIONIST TO PROVIDE SKILLED TEACHING AND MANAGEMENT OF POST CEREBRAL VASCULAR ACCIDENT. [code = CEREBRAL VASCULAR ACCIDENT MANAGEMENT; RN/EMPLOYEE RELATIONS CONSULTANT/CAMPUS RECEPTIONIST TO PROVIDE SKILLED TEACHING AND MANAGEMENT OF POST CEREBRAL VASCULAR ACCIDENT.] Future Scheduled Test RN/CAMPUS RECEPTIONIST/EMPLOYEE RELATIONS CONSULTANT TO PERFORM/TEACH INCISION CARE TO AREA: UPPER LEFT ABDOMINAL AREA. PATIENT MAY SHOWER LEAVE OPEN TO AIR. SUTURES TO BE REMOVED AT POSTOP APPOINTMENT [code = RN/CAMPUS RECEPTIONIST/EMPLOYEE RELATIONS CONSULTANT TO PERFORM/TEACH INCISION CARE TO AREA: UPPER LEFT ABDOMINAL AREA. PATIENT MAY SHOWER LEAVE OPEN TO AIR. SUTURES TO BE REMOVED AT POSTOP APPOINTMENT] Goal Patient Goal - G ET STRONGER AND BACK TO PLOF Goal Provider Goal - A PLAN OF CARE WILL BE ESTABLISHED THAT MEETS THE PATIENT S NEEDS. PATIENT WILL DEMONSTRATE OXYGEN SATURATION WITHIN NORMAL LIMITS OR PATIENT S OPTIMAL LEVEL ESTABLISHED BY THE PHYSICIAN THROUGHOUT CARE. CHANGES TO CO-MORBID CONDITIONS AND ANY NEW CONDITIONS WILL BE IDENTIFIED AND REPORTED TO THE PHYSICIAN. Goal Provider Goal - PATIENT/CAREGIVER TO VERBALIZE, AND CONSISTENTLY DEMONSTRATE EFFECTIVE, SAFE MANAGEMENT OF MEDICATION INCLUDING KNOWLEDGE OF EFFECTIVENESS, POTENTIAL SIDE EFFECTS AND DRUG REACTIONS AND WHEN TO CONTACT THE APPROPRIATE CARE PROVIDER. PATIENT/CAREGIVER WILL BE ABLE TO VERBALIZE UNDERSTANDING OF MEDICATION REGIMEN AND ACCURATELY TAKE MEDICATIONS PRESCRIBED WITHOUT ADVERSE EFFECTS BY EOE Goal Provider Goal - PATIENT/CAREGIVER WILL VERBALIZE UNDERSTANDING OF SIGNS AND SYMPTOMS THAT PUT THE PATIENT AT RISK FOR HOSPITALIZATION /EMERGENCY ROOM VISITS, WHEN TO NOTIFY NURSE/PHYSICIAN OF COMPLICATIONS/DECLINE AND WHEN TO CALL 911. Goal Provider Goal - PATIENT / CAREGIVER WILL VERBALIZE/DEMONSTRATE UNDERSTANDING OF MEASURES TO MANAGE ALTERED CARDIOVASCULAR STATUS BY EOE Goal Provider Goal - PATIENT / CAREGIVER WILL VERBALIZE/DEMONSTRATE AN ABILITY TO ADHERE TO SELF-MANAGEMENT OF CABG TO MINIMIZE COMPLICATIONS AND AVOID HOSPITALIZATION BY END OF EPISODE. Goal Provider Goal - PATIENT / CAREGIVER WILL VERBALIZE/DEMONSTRATE AN ABILITY TO ADHERE TO SELF-MANAGEMENT OF HEART ARRHYTHMIA TO MINIMIZE COMPLICATIONS AND AVOID HOSPITALIZATION BY END OF EPISODE. Goal Provider Goal - PATIENT / CAREGIVER WILL VERBALIZE/DEMONSTRATE AN ABILITY TO ADHERE TO SELF-MANAGEMENT OF HTN TO MINIMIZE COMPLICATIONS AND AVOID HOSPITALIZATION BY END OF EPISODE. Goal Provider Goal - PATIENT / CAREGIVER WILL VERBALIZE / DEMONSTRATE UNDERSTANDING OF PAIN CONTROL MEASURES BY EOE Goal Provider Goal - Goal Provider Goal - Goal Provider Goal - Goal Provider Goal - PATIENT/CAREGIVER WILL VERBALIZE/DEMONSTRATE UNDERSTANDING OF FALL RISK FACTORS AND IMPLEMENT STRATEGIES TO MINIMIZE FALL RISK. PATIENT/CAREGIVER WILL VERBALIZE/DEMONSTRATE AN ABILITY TO ADHERE TO FALL REDUCTION SELF-MANAGEMENT AND LIFE-STYLE CHANGES BY EOE Goal Provider Goal - PATIENT / CAREGIVER WILL VERBALIZE / DEMONSTRATE AN ABILITY TO ADHERE TO SELF-MANAGEMENT OF DIABETES MANAGEMENT BY EOE Goal Provider Goal - PATIENT / CAREGIVER WILL VERBALIZE/DEMONSTRATE UNDERSTANDING OF CARE AND MANAGEMENT OF PACEMAKER BY END OF EPISODE. Goal Provider Goal - PATIENT / CAREGIVER WILL VERBALIZE/DEMONSTRATE UNDERSTANDING OF MEASURES TO MANAGE ALTERED NEUROLOGICAL STATUS BY EOE Goal Provider Goal - PATIENT / CAREGIVER WILL VERBALIZE/DEMONSTRATE CARE AND SELF-MANAGEMENT OF CVA TO MINIMIZE COMPLICATIONS AND AVOID HOSPITALIZATION BY END OF EPISODE. Goal Provider Goal - PATIENT / CAREGIVER WILL VERBALIZE / DEMONSTRATE ABILITY TO PERFORM WOUND CARE. WOUND STATUS WILL IMPROVE EVIDENCED BY A DECREASE IN SIZE, DRAINAGE, ABSENCE OF INFECTION, AND DECREASED PAIN BY EOE Progress Notes Progress Notes <paragraph>[Visit Date: 2024 by CAROLE ROWE LPN]:</paragraph><paragraph>PATIENT SEEN TODAY FOR SKILLED NURSE VISIT AND WOUND CARE. PATIENT ALERT AND COOPERATIVE. PATIENT VOICES PAIN OF 3/10 WITH RELIEF NOTED FROM REPOSITIONING. VS OBTAINED AND WNL. LCTA. RESP E/U ON RA AT REST. PATIENT REPORTS MILD SOB WITH ACTIVITY. NONPITTING EDEMA NOTED TO BLE. PATIENT REPORTS NO ISSUES WITH BOWEL/BLADDER. SURGICAL WOUND TO CHEST NOTED TO BE FREE FROM S/S INFECTION AT THIS TIME. OPEN AREA MEASURING 1.0CM X 0.5CM X 0.0CM NOTED TO LEFT BUTTOCK DURING NURSE VISIT. CALL PLACED TO MD OFFICE UPDATING ON WOUND AND REQUESTING NEW WOUND ORDERS. CALL PLACED TO KAYLA KELLY RN FOR PATIENT UPDATING ON PATIENT WOUND. PATIENT AWARE OF WOUND AND EDUCATED ON REPOSITIONING, NUTRITION, AND ACTIVITY MUCH TOLERATED TO HELP WOUND HEALING. PATIENT VERBALIZED UNDERSTANDING OF DISCUSSION.L DISCUSSED WITH PATIENT TO CONTACT [facility] WITH QUESTIONS AND CONCERNS. PATIENT VERBALIZED UNDERSTANDING OF DISCUSSION</paragraph> Encounters Start Date/Time End Date/Time Encounter Type Admission Type Attending [facility] Department Encounter ID Discharge Date Discharge Status Discharge Condition Discharge Reason Percent Goals Met 2025-01-25 00:00:00 2025-03-25 00:00:00 Outpatient NEW ADMISSION KAYLA KELLY [facility] [id number] 19.35
== END 2025-02-02 05:15 | disposition short-term general hospital (02) ==
PROVIDERS: Emergency Provider Emergency Medicine; PCP Internal Medicine
DX: E11.649 Type 2 diabetes mellitus with hypoglycemia without coma (principal); R57.0 Cardiogenic shock; J18.9 Pneumonia, unspecified organism; N17.9 Acute kidney failure, unspecified; E11.22 Type 2 diabetes mellitus with diabetic chronic kidney disease; I12.9 Hypertensive chronic kidney disease with stage 1 through stage 4 chronic kidney disease, or unspecified chronic kidney disease; N18.9 Chronic kidney disease, unspecified; Z86.73 Personal history of transient ischemic attack (TIA), and cerebral infarction without residual deficits; F17.210 Nicotine dependence, cigarettes, uncomplicated; Z20.822 Contact with and (suspected) exposure to COVID-19
CPT/HCPCS: 36415; 36556; 70450; 71045; 71250; 74176; 80053; 81001; 82803; 82948; 83605; 83690; 83735; 83880; 84100; 84439; 84443; 84480; 84484; 85025; 85610; 85730; 87040; 87637; 93005; 96361; 96365; 96367; 99291; C1751; J0692; J2250; J3373; J7030; J7120

== ENCOUNTER 2025-03-06 09:59 | Outpatient (CLI) | payer MEDICARE, SELFPAY ==
--- OUTSIDE RECORDS SUMMARY | 2025-03-06 10:52 | XMS_ITS ---
Time Performed At [facility] Ventricular Rate EKG/Min 66 BPM [facility] Atrial Rate 66 BPM [facility] HI-Interval (MSEC) 270 ms [facility] QRS-Interval (MSEC) 96 ms [facility] QT-Interval (MSEC) 510 ms [facility] QTc 534 ms [facility] P [place] 68 degrees [facility] R [place] 3 degrees [facility] T [place] 93 degrees [facility] Diagnosis Atrial-paced rhythm with prolonged AV conduction with Premature atrial complexes with Aberrant conduction Inferior infarct , age undetermined Prolonged QT Abnormal ECG When compared with ECG of 09-JAN-2025 06:00, Aberrant conduction is now Present Confirmed by SILAS CARLIN M.D ([id number]) on 01/10/2025 5:46:07 PM [facility] 01/10/2025 6:06 AM CDT 01/10/2025 5:46 PM CDT us Radha Almonte [employer] ECG ORDERABLES Final Resu lt [facility] * (ABNORMAL) POCT glucose (01/09/2025 8:13 PM CDT) [facility] Glucose, POC 284(H) 70 - 199 mg/dL Blood 01/09/2025 8:13 PM CDT 01/09/2025 8:13 PM CDT Meño Yeager MD LAB POCT ORDERABLES - DEVICE Final Result [facility] Department [place] [address] * (ABNORMAL) POCT glucose (01/09/2025 4:56 PM CDT) [facility] Glucose, POC 286(H) 70 - 199 mg/dL Blood 01/09/2025 4:56 PM CDT 01/09/2025 4:56 PM CDT Meño Yeager MD LAB POCT ORDERABLES - DEVICE Final Result WANDA RODRIGUES [facility] Department [place] [address] * (ABNORMAL) POCT glucose (01/09/2025 11:47 AM CDT) Glucose, POC 281(H) 70 - 199 mg/dL Blood 01/09/2025 11:4 7 AM CDT 01/09/2025 11:47 AM CDT us Meño Yeager MD LAB POCT ORDERABLES - DEVICE Final Result Performing Organization Address [facility] Co de Phone Number WANDA RODRIGUES [facility] [place] [address] * (ABNORMAL) eGFR (01/09/2025 9:07 AM CDT) eGFR 38(L) >=60 mL/min/1. 73 m2 [...] 01/09/2025 9:19 AM CDT us Radha Almonte [employer] LAB BLOOD ORDERABLES Final Result Performing Organization Address [facility] de Phone Number [facility] Department [place] [address] * (ABNORMAL) CBC without differential (01/09/2025 9:07 AM CDT) WBC 7.87 3.80 - 9.90 K/cumm Hgb 10.4(L) 13.0 - 17.5 g/dL [facility] Hct 31.5(L) 38.9 - 50.3 % [facility] Plt 330 150 - 400 K/cumm [facility] MPV 9.8 9.1 - 12.3 fL [facility] RBC 3.44(L) 4.30 - 5.80 M/cumm [facility] MCV 91.6 81.3 - 96.4 fL [facility] MCH 30.2 27.1 - 33.3 pg [facility] MCHC 33.0 32.3 - 35.7 g/dL [facility] RDW CV 15.2(H) 11.1 - 14.9 % [facility] RDW SD 50.5(H) 35.7 - 48.1 fL [facility] NRBC abs 0.00 0.00 - 0.01 K/cumm [facility] Blood 01/09/2025 9:07 AM CDT 01/09/2025 9:19 AM CDT Radha Almonte [employer] LAB BLOOD ORDERABLES Final Result Performing Organization Address [facility] Co de Phone Number [facility] Department [place] [address] * Phosphorus (01/09/2025 9:07 AM CDT) Pathologist [facility] Phosphorus, pl 3.2 2.3 - 4.5 mg/dL Blood 01/09/2025 9:07 AM CDT 01/09/2025 9:19 AM CDT us Radha Almonte [employer] LAB BLOOD ORDERABLES Final Result [facility] [place] [address] * Magnesium (01/09/2025 9:07 AM CDT) [facility] Magnesium 2.1 1.4 - 2.5 mg/dL Blood 01/09/2025 9:07 AM CDT 01/09/2025 9:19 AM CDT Radha Almonte [employer] LAB BLOOD ORDERABLES Final Result Performing Organization Address [facility] de Phone Number [facility] [place] [address] * (ABNORMAL) Hepatic function panel (01/09/2025 9:07 AM CDT) [facility] Bilirubin, total 0.2 0.1 - 1.2 mg/dL Bilirubin, direct <0.2 0.1 - 0.3 mg/dL [facility] Protein, pl 6.5 6.5 - 8.5 g/dL [facility] Albumin 3.1(L) 3.5 - 5.0 g/dL [facility] Alk phos 104 40 - 130 Units/L [facility] ALT 384(H) 7 - 55 Units/L [facility] AST 184(H) 10 - 50 Units/L [facility] Blood 01/09/2025 9:07 AM CDT 01/09/2025 9:19 AM CDT Radha Almonte [employer] LAB BLOOD ORDERABLES Final Result Performing Organization Address [facility] Co de Phone Number [facility] Department [place] [address] * (ABNORMAL) Basic metabolic panel (01/09/2025 9:07 AM CDT) Pathologist [facility] Sodium 142 135 - 145 mmol/L Potassium, pl 4.0 3.3 - 4.9 mmol/L [facility] Chloride 101 97 - 110 mmol/L [facility] CO2 32 22 - 32 mmol/L [facility] Anion gap 9 2 - 15 mmol/L [facility] BUN 48(H) 6 - 25 mg/dL [facility] Creatinine 1.82(H) 0.80 - 1.30 mg/dL [facility] Glucose 256(H) 70 - 199 mg/dL [facility] Comment: Interpretive Data Fasting glucose >/= [...] Calcium 8.8 8.5 - 10.3 mg/dL [facility] Blood 01/09/2025 9:07 AM CDT 01/09/2025 9:19 AM CDT us Radha Almonte [employer] LAB BLOOD ORDERABLES Final Result Performing Organization Address City/[facility]/ZIP Co de Phone Number [facility] Department [place] [address] * POCT glucose (01/09/2025 7:57 AM CDT) [facility] Glucose, POC 178 70 - 199 mg/dL Blood 01/09/2025 7:57 AM CDT 01/09/2025 7:57 AM CDT us Meño Yeager MD LAB POCT ORDERABLES - DEVICE Final Result Performing Organization Address [facility]/ZIP Co de Phone Number [facility] Department [place] [address] * ECG 12 lead (01/09/2025 6:00 AM CDT) [facility] Ventricular Rate EKG/Min 60 BPM [facility] Atrial Rate 60 BPM [facility] HI-Interval (MSEC) 282 ms [facility] QRS-Interval (MSEC) 100 ms [facility] QT-Interval (MSEC) 518 ms [facility] QTc 518 ms [facility] P [place] 77 degrees [facility] R [place] 0 degrees [facility] T [place] 103 degrees [facility] Diagnosis Atrial-paced rhythm with prolonged AV conduction Nonspecific ST and T wave abnormality Prolonged QT Abnormal ECG When compared with ECG of 07-JAN-2025 11:35, (unconfirmed) Electronic atrial pacemaker has replaced Sinus rhythm T wave inversion less evident in Anterior leads Confirmed by SILAS CARLIN M.D ([id number]) on 01/09/2025 12:16:28 PM [facility] 01/09/2025 6:00 AM CDT 01/09/2025 12:16 PM CDT us Radha Almonte [employer] ECG ORDERABLES Final Resu lt [facility] * POCT glucose (01/08/2025 8:31 PM CDT) Glucose, POC 186 70 - 199 mg/dL Blood 01/08/2025 8:31 PM CDT 01/08/2025 8:31 PM CDT us Meño Yeager MD LAB POCT ORDERABLES - DEVICE Final Result [facility] Department [place] [address] * (ABNORMAL) POCT glucose (01/08/2025 5:06 PM CDT) Glucose, POC 221(H) 70 - 199 mg/dL Blood 01/08/2025 5:06 PM CDT 01/08/2025 5:06 PM CDT Meño Yeager MD LAB POCT ORDERABLES - DEVICE Final Result [facility] [place] [address] * (ABNORMAL) POCT glucose (01/08/2025 12:20 PM CDT) Glucose, POC 290(H) 70 - 199 mg/dL Blood 01/08/2025 12:2 0 PM CDT 01/08/2025 12:20 PM CDT Meño Yeager MD LAB POCT ORDERABLES - DEVICE Final Result Performing Organization Address City/[facility] Co de Phone Number [facility] [place] [address] * (ABNORMAL) eGFR (01/08/2025 11:38 AM CDT) [...] 01/08/2025 11:44 AM CDT us Jinny Simms NP LAB BLOOD ORDERABLES Final Re sult [facility] Department [place] [address] * (ABNORMAL) Comprehensive metabolic panel (01/08/2025 11:38 AM CDT) Sodium 140 135 - 145 mmol/L Potassium, pl 3.7 3.3 - 4.9 mmol/L [facility] Comment:Repeated and Verifie d Chloride 98 97 - 110 mmol/L [facility] CO2 32 22 - 32 mmol/L [facility] Anion gap 10 2 - 15 mmol/L [facility] BUN 49(H) 6 - 25 mg/dL [facility] Creatinine 1.94(H) 0.80 - 1.30 mg/dL [facility] Glucose 259(H) 70 - 199 mg/dL [facility] Comment: Interpretive Data Fasting glucose >/= [...] 2022. Calcium 8.9 8.5 - 10.3 mg/dL [facility] Bilirubin, total 0.2 0.1 - 1.2 mg/dL [facility] Protein, pl 6.3(L) 6.5 - 8.5 g/dL [facility] Albumin 3.0(L) 3.5 - 5.0 g/dL [facility] Alk phos 97 40 - 130 Units/L [facility] ALT 303(H) 7 - 55 Units/L [facility] Comment:Reviewed AST 156(H) 10 - 50 Units/L [facility] Comment:Reviewed Blood 01/08/2025 11:3 8 AM CDT 01/08/2025 11:44 AM CDT Jinny Simms [employer] LAB BLOOD ORDERABLES Final Re sult Performing Organization Address [facility] Co de Phone Number [facility] [place] [address] * (ABNORMAL) eGFR (01/08/2025 9:09 AM CDT) eGFR 42(L) >=60 mL/min/1. 73 [...] 01/08/2025 9:34 AM CDT us Jinny Simms [employer] LAB BLOOD ORDERABLES Final Re sult Performing Organization Address City/[facility]/ZIP Co de Phone Number [facility] Department [place] [address] * Differential, auto (01/08/2025 9:09 AM CDT) Neutrophil abs 4.21 1.50 - 6.50 K/cumm Imm gran abs 0.02 0.00 - 0.10 K/cumm [facility] Lymphocyte abs 1.63 0.80 - 3.30 K/cumm [facility] Monocyte abs 0.77 0.20 - 0.80 K/cumm [facility] Eosinophil abs 0.16 0.00 - 0.50 K/cumm [facility] Basophil abs 0.05 0.00 - 0.10 K/cumm [facility] Neutrophil pct 61.6 % [facility] Comment: Interpretive Data Percent cell count reference ranges are not reported, since discordance with absolute values may lead to misinterpretation of CBC data. Current Interpretive Data was last revised on 2017. Imm gran pct 0.3 % [facility] Comment: Interpretive Data Percent cell count reference ranges are not reported, since discordance with absolute values may lead to misinterpretation of CBC data. Current Interpretive Data was last revised on 2017. Lymphocyte pct 23.8 % [facility] Comment: Interpretive Data Percent cell count reference ranges are not reported, since discordance with absolute values may lead to misinterpretation of CBC data. Current Interpretive Data was last revised on 2017. Monocyte pct 11.3 % [facility] Comment: Interpretive Data Percent cell count reference ranges are not reported, since discordance with absolute values may lead to misinterpretation of CBC data. Current Interpretive Data was last revised on 2017. Eosinophil pct 2.3 % [facility] Comment: Interpretive Data Percent cell count reference ranges are not reported, since discordance with absolute values may lead to misinterpretation of CBC data. Current Interpretive Data was last revised on 2017. Basophil pct 0.7 % [facility] Comment: Interpretive Data Percent cell count reference ranges are not reported, since discordance with absolute values may lead to misinterpretation of CBC data. Current Interpretive Data was last revised on 2017. Blood 01/08/2025 9:09 AM CDT 01/08/2025 9:34 AM CDT us Jinny Simms [employer] LAB BLOOD ORDERABLES Final Re sult [facility] Department [place] [address] * (ABNORMAL) CBC with auto differential (01/08/2025 9:09 AM CDT) [facility] WBC 6.84 3.80 - 9.90 K/cumm Hgb 9.9(L) 13.0 - 17.5 g/dL [facility] Hct 31.0(L) 38.9 - 50.3 % [facility] Plt 215 150 - 400 K/cumm [facility] MPV 10.7 9.1 - 12.3 fL [facility] RBC 3.36(L) 4.30 - 5.80 M/cumm [facility] MCV 92.3 81.3 - 96.4 fL [facility] MCH 29.5 27.1 - 33.3 pg [facility] MCHC 31.9(L) 32.3 - 35.7 g/dL [facility] RDW CV 15.3(H) 11.1 - 14.9 % [facility] RDW SD 51.5(H) 35.7 - 48.1 fL [facility] NRBC abs 0.00 0.00 - 0.01 K/cumm [facility] Blood 01/08/2025 9:09 AM CDT 01/08/2025 9:34 AM CDT us Jinny Simms [employer] LAB BLOOD ORDERABLES Final Re sult [facility] Department [place] [address] * (ABNORMAL) Comprehensive metabolic panel (01/08/2025 9:09 AM CDT) [facility] Sodium 139 135 - 145 mmol/L Potassium, pl See Comment 3.3 - 4.9 mmol/L [facility] Comment:Credited; Hemolyzed Specimen Chloride 98 97 - 110 mmol/L [facility] CO2 31 22 - 32 mmol/L [facility] Anion gap 10 2 - 15 mmol/L [facility] BUN 47(H) 6 - 25 mg/dL [facility] Creatinine 1.68(H) 0.80 - 1.30 mg/dL [facility] Glucose 182 70 - 199 mg/dL [facility] Comment: Interpretive Data Fasting glucose >/= [...] Calcium 8.8 8.5 - 10.3 mg/dL [facility] Bilirubin, total 0.3 0.1 - 1.2 mg/dL [facility] Protein, pl 6.6 6.5 - 8.5 g/dL [facility] Albumin 2.8(L) 3.5 - 5.0 g/dL [facility] Alk phos 94 40 - 130 Units/L [facility] Comment:Hemolyzed; result ma y be falsely decreased ALT See Comment 7 - 55 Units/L [facility] Comment:Credited; Hemolyzed Specimen AST See Comment 10 - 50 Units/L [facility] Comment:Credited; Hemolyzed Specimen Blood 01/08/2025 9:09 AM CDT 01/08/2025 9:34 AM CDT Jinny Simms [employer] LAB BLOOD ORDERABLES Final Re sult [facility] Department [place] [address] * POCT glucose (01/08/2025 8:17 AM CDT) [facility] Signature Glucose, POC 194 70 - 199 mg/dL Blood 01/08/2025 8:17 AM CDT 01/08/2025 8:17 AM CDT us Meño Yeager MD LAB POCT ORDERABLES - DEVICE Final Result Performing Organization Address City/[facility]/ZIP Co de Phone Number [facility] [place] [address] * POCT glucose (01/07/2025 8:06 PM CDT) Glucose, POC 130 70 - 199 mg/dL Blood 01/07/2025 8:06 PM CDT 01/07/2025 8:06 PM CDT us Meño Yeager MD LAB POCT ORDERABLES - DEVICE Final Result Performing Organization Address [facility] Co de Phone Number [facility] [place] [address] * POCT glucose (01/07/2025 4:51 PM CDT) Glucose, POC 199 70 - 199 mg/dL Blood 01/07/2025 4:51 PM CDT 01/07/2025 4:51 PM CDT Meño Yeager MD LAB POCT ORDERABLES - DEVICE Final Result Performing Organization Address [facility] Co de Phone Number [facility] [place] [address] * (ABNORMAL) POCT glucose (01/07/2025 12:00 PM CDT) Glucose, POC 359(H) 70 - 199 mg/dL Blood 01/07/2025 12:0 0 PM CDT 01/07/2025 12:00 PM CDT us Meño Yeager MD LAB POCT ORDERABLES - DEVICE Final Result Performing Organization Address City/[facility]/ZIP Co de Phone Number [facility] [place] [address] * ECG 12 lead (01/07/2025 11:35 AM CDT) [facility] Ventricular Rate EKG/Min 62 BPM [facility] Atrial Rate 62 BPM [facility] HI-Interval (MSEC) 152 ms [facility] QRS-Interval (MSEC) 100 ms [facility] QT-Interval (MSEC) 520 ms [facility] QTc 527 ms [facility] P [place] 82 degrees [facility] R [place] -4 degrees [facility] T [place] 119 degrees [facility] Diagnosis Normal sinus rhythm atrial-paced complexes ST & T wave abnormality, consider anterolateral ischemia Prolonged QT Abnormal ECG When compared with ECG of 05-JAN-2025 07:04, Sinus rhythm has replaced Electronic atrial pacemaker Confirmed by SILAS CARLIN M.D ([id number]) on 01/09/2025 12:20:44 PM [facility] 01/07/2025 11:3 5 AM CDT 01/09/2025 12:20 PM CDT us Radha Almonte [employer] ECG ORDERABLES Final Resu lt [facility] * (ABNORMAL) POCT glucose (01/07/2025 8:08 AM CDT) Glucose, POC 254(H) 70 - 199 mg/dL Blood 01/07/2025 8:08 AM CDT 01/07/2025 8:08 AM CDT us Meño Yeager MD LAB POCT ORDERABLES - DEVICE Final Result [facility] Department [place] [address] * (ABNORMAL) POCT glucose (01/06/2025 8:17 PM CDT) Glucose, POC 231(H) 70 - 199 mg/dL Blood 01/06/2025 8:17 PM CDT 01/06/2025 8:17 PM CDT Meño Yeager MD LAB POCT ORDERABLES - DEVICE Final Result Performing Organization Address [facility] de Phone Number [facility] [place] [address] * POCT glucose (01/06/2025 4:49 PM CDT) Glucose, POC 195 70 - 199 mg/dL Blood 01/06/2025 4:49 PM CDT 01/06/2025 4:49 PM CDT Meño Yeager MD LAB POCT ORDERABLES - DEVICE Final Result Performing Organization Address [facility] de Phone Number [facility] [place] [place] [address] * (ABNORMAL) POCT glucose (01/06/2025 11:42 AM CDT) Glucose, POC 310(H) 70 - 199 mg/dL Blood 01/06/2025 11:4 2 AM CDT 01/06/2025 11:42 AM CDT Meño Yeager MD LAB POCT ORDERABLES - DEVICE Final Result Performing Organization Address [facility] de Phone Number [facility] [place] [address] * POCT glucose (01/06/2025 7:29 AM CDT) Glucose, POC 198 70 - 199 mg/dL Blood 01/06/2025 7:29 AM CDT 01/06/2025 7:29 AM CDT Meño Yeager MD LAB POCT ORDERABLES - DEVICE Final Result Performing Organization Address [facility] de Phone Number [facility] Department [place] [address] * (ABNORMAL) eGFR (01/05/2025 9:16 PM CDT) [facility] eGFR 33(L) >=60 mL/min/1. 73 m2 Comment: [...] BLOOD ORDERABLES Final Result Performing Organization Address [facility] Co de Phone Number [facility] Department [place] [address] * (ABNORMAL) CBC without differential (01/05/2025 9:16 PM CDT) [facility] WBC 8.48 3.80 - 9.90 K/cumm Hgb 9.4(L) 13.0 - 17.5 g/dL [facility] Hct 29.1(L) 38.9 - 50.3 % [facility] Plt 304 150 - 400 K/cumm [facility] MPV 9.8 9.1 - 12.3 fL [facility] RBC 3.09(L) 4.30 - 5.80 M/cumm [facility] MCV 94.2 81.3 - 96.4 fL [facility] MCH 30.4 27.1 - 33.3 pg [facility] MCHC 32.3 32.3 - 35.7 g/dL [facility] RDW CV 15.6(H) 11.1 - 14.9 % [facility] RDW SD 53.5(H) 35.7 - 48.1 fL [facility] NRBC abs 0.00 0.00 - 0.01 K/cumm [facility] Blood 01/05/2025 9:16 PM CDT 01/05/2025 9:32 PM CDT us Radha Almonte [employer] LAB BLOOD ORDERABLES Final Result Performing Organization Address [facility] Co de Phone Number [facility] Department [place] [address] * Phosphorus (01/05/2025 9:16 PM CDT) Phosphorus, pl 3.1 2.3 - 4.5 mg/dL Blood 01/05/2025 9:16 PM CDT 01/05/2025 9:32 PM CDT us Radha Almonte [employer] LAB BLOOD ORDERABLES Final Result Performing Organization Address City/[facility] Co de Phone Number [facility] [place] [address] * Magnesium (01/05/2025 9:16 PM CDT) Magnesium 2.3 1.4 - 2.5 mg/dL Blood 01/05/2025 9:16 PM CDT 01/05/2025 9:32 PM CDT us Radha Almonte [employer] LAB BLOOD ORDERABLES Final Result Performing Organization Address City/[facility] Co de Phone Number [facility] [place] [address] * (ABNORMAL) Hepatic function panel (01/05/2025 9:16 PM CDT) [facility] Bilirubin, total 0.2 0.1 - 1.2 mg/dL Bilirubin, direct <0.2 0.1 - 0.3 mg/dL [facility] Protein, pl 6.3(L) 6.5 - 8.5 g/dL [facility] Albumin 2.9(L) 3.5 - 5.0 g/dL [facility] Alk phos 90 40 - 130 Units/L [facility] ALT 316(H) 7 - 55 Units/L [facility] AST 222(H) 10 - 50 Units/L [facility] Blood 01/05/2025 9:16 PM CDT 01/05/2025 9:32 PM CDT Radha Almonte [employer] LAB BLOOD ORDERABLES Final Result Performing Organization Address [facility] de Phone Number [facility] Department [place] [address] * (ABNORMAL) Basic metabolic panel (01/05/2025 9:16 PM CDT) [facility] Sodium 140 135 - 145 mmol/L Potassium, pl 3.6 3.3 - 4.9 mmol/L [facility] Chloride 97 97 - 110 mmol/L [facility] CO2 34(H) 22 - 32 mmol/L [facility] Anion gap 9 2 - 15 mmol/L [facility] BUN 64(H) 6 - 25 mg/dL [facility] Creatinine 2.04(H) 0.80 - 1.30 mg/dL [facility] Glucose 297(H) 70 - 199 mg/dL [facility] [facility] Comment: Interpretive Data Fasting glucose >/= [...] Calcium 8.8 8.5 - 10.3 mg/dL [facility] Blood 01/05/2025 9:16 PM CDT 01/05/2025 9:32 PM CDT Radha Almonte [employer] LAB BLOOD ORDERABLES Final Result Performing Organization Address [facility] Co de Phone Number [facility] Department [place] [address] * (ABNORMAL) POCT glucose (01/05/2025 8:04 PM CDT) Glucose, POC 344(H) 70 - 199 mg/dL Blood 01/05/2025 8:04 PM CDT 01/05/2025 8:04 PM CDT Meño Yeager MD LAB POCT ORDERABLES - DEVICE Final Result Performing Organization Address [facility] Co de Phone Number [facility] Department [place] [address] * (ABNORMAL) POCT glucose (01/05/2025 4:32 PM CDT) Glucose, POC 263(H) 70 - 199 mg/dL Blood 01/05/2025 4:32 PM CDT 01/05/2025 4:32 PM CDT Meño Yeager MD LAB POCT ORDERABLES - DEVICE Final Result Performing Organization Address City/[facility]/ZIP Co de Phone Number [facility] Department [place] [address] * (ABNORMAL) eGFR (01/05/2025 11:49 AM CDT) eGFR 33(L) >=60 mL/min/1. 73 m2 [...] LAB BLOOD ORDERABLES Final Resul t [facility] Department [place] [address] * (ABNORMAL) Basic metabolic panel (01/05/2025 11:49 AM CDT) Pathologist [facility] Sodium 138 135 - 145 mmol/L Potassium, pl 3.8 3.3 - 4.9 mmol/L [facility] Chloride 96(L) 97 - 110 mmol/L [facility] CO2 33(H) 22 - 32 mmol/L [facility] Anion gap 9 2 - 15 mmol/L [facility] BUN 59(H) 6 - 25 mg/dL [facility] Creatinine 2.04(H) 0.80 - 1.30 mg/dL [facility] Glucose 277(H) 70 - 199 mg/dL [facility] Comment: Interpretive Data Fasting glucose >/= [...] Calcium 8.8 8.5 - 10.3 mg/dL [facility] Blood 01/05/2025 11:4 9 AM CDT 01/05/2025 11:59 AM CDT Nellie Maldonado NP LAB BLOOD ORDERABLES Final Resul t Performing Organization Address City/[facility] Co de Phone Number [facility] Department [place] [address] * (ABNORMAL) POCT glucose (01/05/2025 11:27 AM CDT) Glucose, POC 323(H) 70 - 199 mg/dL Blood 01/05/2025 11:2 7 AM CDT 01/05/2025 11:27 AM CDT Meño Yeager MD LAB POCT ORDERABLES - DEVICE Final Result [facility] Department [place] [place] [address] * POCT glucose (01/05/2025 7:37 AM CDT) Glucose, POC 181 70 - 199 mg/dL Blood 01/05/2025 7:37 AM CDT 01/05/2025 7:37 AM CDT Meño Yeager MD LAB POCT ORDERABLES - DEVICE Final Result Performing Organization Address City/[facility]/ZIP Co de Phone Number [facility] Department [place] [place] [address] * ECG 12 lead (01/05/2025 7:04 AM CDT) [facility] Ventricular Rate EKG/Min 66 BPM [facility] Atrial Rate 66 BPM [facility] HI-Interval (MSEC) 270 ms [facility] QRS-Interval (MSEC) 102 ms [facility] QT-Interval (MSEC) 520 ms [facility] QTc 545 ms [facility] P [place] 55 degrees [facility] R [place] -3 degrees [facility] T [place] 116 degrees [facility] Diagnosis Atrial-paced rhythm with prolonged AV conduction with frequent Premature ventricular complexes ST & T wave abnormality, consider anterior ischemia Prolonged QT Abnormal ECG When compared with ECG of 03-JAN-2025 05:36, Premature ventricular complexes are now Present Premature supraventricular complexes are no longer Present Confirmed by SILAS CARLIN M.D ([id number]) on 01/05/2025 4:55:05 PM [facility] 01/05/2025 7:04 AM CDT 01/05/2025 4:55 PM CDT us Pelon Huggins MD PhD ECG ORDERABLES Fi nal Result Performing Organization Address [facility]/ZIP Co de Phone Number [facility] * POCT glucose (01/04/2025 10:06 PM CDT) Pathologist [facility] Glucose, POC 193 70 - 199 mg/dL Blood 01/04/2025 10:0 6 PM CDT 01/04/2025 10:06 PM CDT us Meño Yeager MD LAB POCT ORDERABLES - DEVICE Final Result Performing Organization Address City/[facility]/ZIP Co de Phone Number [facility] Department [place] [address] * (ABNORMAL) eGFR (01/04/2025 8:27 PM CDT) [facility] eGFR 26(L) >=60 mL/min/1. 73 m2 Comment: [...] 01/04/2025 9:35 PM CDT us Radha Almonte NP LAB BLOOD ORDERABLES Final Result [facility] Department [place] [address] * (ABNORMAL) CBC without differential (01/04/2025 8:27 PM CDT) [facility] WBC 8.29 3.80 - 9.90 K/cumm Hgb 9.8(L) 13.0 - 17.5 g/dL [facility] Hct 30.7(L) 38.9 - 50.3 % [facility] Plt 300 150 - 400 K/cumm [facility] MPV 10.3 9.1 - 12.3 fL [facility] RBC 3.19(L) 4.30 - 5.80 M/cumm [facility] MCV 96.2 81.3 - 96.4 fL [facility] MCH 30.7 27.1 - 33.3 pg [facility] MCHC 31.9(L) 32.3 - 35.7 g/dL [facility] RDW CV 15.9(H) 11.1 - 14.9 % [facility] RDW SD 55.5(H) 35.7 - 48.1 fL [facility] NRBC abs 0.00 0.00 - 0.01 K/cumm [facility] Blood 01/04/2025 8:27 PM CDT 01/04/2025 9:34 PM CDT us Radha Almonte [employer] LAB BLOOD ORDERABLES Final Result Performing Organization Address City/[facility] Co de Phone Number [facility] [place] [employer] [address] * Phosphorus (01/04/2025 8:27 PM CDT) Phosphorus, pl 3.2 2.3 - 4.5 mg/dL Blood 01/04/2025 8:27 PM CDT 01/04/2025 9:35 PM CDT us Radha Almonte [employer] LAB BLOOD ORDERABLES Final Result Performing Organization Address [facility] de Phone Number [facility] [place] [address] * Magnesium (01/04/2025 8:27 PM CDT) Magnesium 2.2 1.4 - 2.5 mg/dL Blood 01/04/2025 8:27 PM CDT 01/04/2025 9:35 PM CDT us Radha Almonte [employer] LAB BLOOD ORDERABLES Final Result Performing Organization Address [facility] Co de Phone Number [facility] [place] [address] * (ABNORMAL) Hepatic function panel (01/04/2025 8:27 PM CDT) [facility] Bilirubin, total 0.2 0.1 - 1.2 mg/dL Bilirubin, direct <0.2 0.1 - 0.3 mg/dL [facility] Protein, pl 6.3(L) 6.5 - 8.5 g/dL [facility] Albumin 3.0(L) 3.5 - 5.0 g/dL [facility] Alk phos 92 40 - 130 Units/L [facility] ALT 254(H) 7 - 55 Units/L [facility] AST 177(H) 10 - 50 Units/L [facility] Blood 01/04/2025 8:27 PM CDT 01/04/2025 9:35 PM CDT us Radha Almonte [employer] LAB BLOOD ORDERABLES Final Result [facility] Department [place] [address] * (ABNORMAL) Basic metabolic panel (01/04/2025 8:27 PM CDT) [facility] Sodium 139 135 - 145 mmol/L Potassium, pl 3.7 3.3 - 4.9 mmol/L [facility] Chloride 96(L) 97 - 110 mmol/L [facility] CO2 32 22 - 32 mmol/L [facility] Anion gap 11 2 - 15 mmol/L [facility] BUN 62(H) 6 - 25 mg/dL [facility] Creatinine 2.48(H) 0.80 - 1.30 mg/dL [facility] Glucose 212(H) 70 - 199 mg/dL [facility] Comment: Interpretive Data Fasting glucose >/= [...] Calcium 8.7 8.5 - 10.3 mg/dL [facility] Blood 01/04/2025 8:27 PM CDT 01/04/2025 9:35 PM CDT us Radha Almonte NP LAB BLOOD ORDERABLES Final Result Performing Organization Address [facility] Co de Phone Number [facility] [place] [address] * (ABNORMAL) POCT glucose (01/04/2025 5:27 PM CDT) Glucose, POC 288(H) 70 - 199 mg/dL Comment:Glu2: RN/MD Notified Glucose comment 1 Glu2: RN/MD Notified [facility] Blood 01/04/2025 5:27 PM CDT 01/04/2025 5:27 PM CDT us Mñeo Yeager MD LAB POCT ORDERABLES - DEVICE Final Result Performing Organization Address [facility] Co de Phone Number [facility] [place] [address] * (ABNORMAL) POCT glucose (01/04/2025 12:26 PM CDT) Glucose, POC 281(H) 70 - 199 mg/dL Blood 01/04/2025 12:2 6 PM CDT 01/04/2025 12:26 PM CDT us Meño Yeager MD LAB POCT ORDERABLES - DEVICE Final Result Performing Organization Address [facility] Co de Phone Number [facility] [place] [address] * TRANSTHORACIC ECHO (TTE) COMPLETE W DOPPLER/CF W CONTRAST (01/04/2025 12:11 PM CDT) EF Mod BP 61 % CONS SCIMAGE Anatomical Region Laterality Modality Ultrasound 01/04/2025 11:2 8 AM CDT Narrative 01/04/2025 1:[address] [facility] [place] [address] Transthoracic Echocardiographic Report Patient Name: JAI TO W : 1945 (79y 5m) Gender: M Study Date: 01/04/2025 11:28:23 AM Ht(Inch): 70 Wt(Lb): 276.24 BSA: 2.49 State Wildlife Officer: GRACE [facility]URPHY [facility] Location: [id number] Order Provider: PELON HUGGINS Heart Rate: 65 [...] cm/sec RA Volume 59.20 ml TR Peak Gregor 2.5 m/s [ 1.0 [...] Procedure Note Kory Garcia MD - 01/04/2025 [facility] [place] [address] Transthoracic Echocardiographic Report Patient Name: JAI TO W : 1945 (79y 5m) Gender: M Study Date: 01/04/2025 11:28:23 AM Ht(Inch): 70 Wt(Lb): 276.24 BSA: 2.49 State Wildlife Officer: [facility] Location: [id number] Order Provider:PELON HUGGINS Heart Rate: 65 BMI: [...] LA Length 2C 5.59 cm MV Decel [id number] msec [ 104.00 - 258.00 ] LA [...] Kory Garcia MD 01/04/2025 1:18:14 PM CDT Pelon Huggins MD PhD CV ECHO PROCEDURES Final Result * POCT glucose (01/04/2025 7:50 AM CDT) [facility] Glucose, POC 196 70 - 199 mg/dL Comment:Glu2: RN/MD Notified Glucose comment 1 Glu2: RN/ Notified [facility] Blood 01/04/2025 7:50 AM CDT 01/04/2025 7:50 AM CDT Meño Yeager MD LAB POCT ORDERABLES - DEVICE Final Result [facility] Department [place] [address] * (ABNORMAL) eGFR (01/03/2025 8:23 PM CDT) [facility] eGFR 30(L) >=60 mL/min/1. 73 m2 Comment: [...] NP LAB BLOOD ORDERABLES Final Result [facility] Department [place] [address] * (ABNORMAL) CBC without differential (01/03/2025 8:23 PM CDT) WBC 9.37 3.80 - 9.90 K/cumm Hgb 9.7(L) 13.0 - 17.5 g/dL [facility] Hct 30.5(L) 38.9 - 50.3 % [facility] Plt 316 150 - 400 K/cumm [facility] MPV 9.7 9.1 - 12.3 fL [facility] RBC 3.27(L) 4.30 - 5.80 M/cumm [facility] MCV 93.3 81.3 - 96.4 fL [facility] MCH 29.7 27.1 - 33.3 pg [facility] MCHC 31.8(L) 32.3 - 35.7 g/dL [facility] RDW CV 16.1(H) 11.1 - 14.9 % [facility] RDW SD 54.7(H) 35.7 - 48.1 fL [facility] NRBC abs 0.00 0.00 - 0.01 K/cumm [facility] Blood 01/03/2025 8:23 PM CDT 01/03/2025 8:49 PM CDT Result Monique Almonte [employer] LAB BLOOD ORDERABLES Final Result Performing Organization Address [facility] de Phone Number [facility] [place] [address] * Phosphorus (01/03/2025 8:23 PM CDT) Phosphorus, pl 3.9 2.3 - 4.5 mg/dL Blood 01/03/2025 8:23 PM CDT 01/03/2025 9:05 PM CDT us Radha Almonte [employer] LAB BLOOD ORDERABLES Final Result Performing Organization Address [facility] de Phone Number [facility] [place] [address] * Magnesium (01/03/2025 8:23 PM CDT) Magnesium 2.0 1.4 - 2.5 mg/dL Blood 01/03/2025 8:23 PM CDT 01/03/2025 9:05 PM CDT Result Monique Almonte [employer] LAB BLOOD ORDERABLES Final Result Performing Organization Address [facility] [place] [address] * (ABNORMAL) Hepatic function panel (01/03/2025 8:23 PM CDT) Bilirubin, total 0.2 0.1 - 1.2 mg/dL Bilirubin, direct <0.2 0.1 - 0.3 mg/dL [facility] Protein, pl 6.1(L) 6.5 - 8.5 g/dL [facility] Albumin 3.0(L) 3.5 - 5.0 g/dL [facility] Alk phos 90 40 - 130 Units/L [facility] ALT 171(H) 7 - 55 Units/L [facility] AST 76(H) 10 - 50 Units/L [facility] Blood 01/03/2025 8:23 PM CDT 01/03/2025 9:05 PM CDT Radha Almonte [employer] LAB BLOOD ORDERABLES Final Result [facility] Department [place] [address] * (ABNORMAL) Basic metabolic panel (01/03/2025 8:23 PM CDT) Sodium 136 135 - 145 mmol/L Potassium, pl 3.7 3.3 - 4.9 mmol/L [facility] Chloride 93(L) 97 - 110 mmol/L [facility] CO2 32 22 - 32 mmol/L [facility] Anion gap 11 2 - 15 mmol/L [facility] BUN 49(H) 6 - 25 mg/dL [facility] Creatinine 2.21(H) 0.80 - 1.30 mg/dL [facility] Glucose 209(H) 70 - 199 mg/dL [facility] Comment: Interpretive Data Fasting glucose >/= [...] Calcium 8.4(L) 8.5 - 10.3 mg/dL [facility] Blood 01/03/2025 8:23 PM CDT 01/03/2025 9:05 PM CDT us Radha Almonte [employer] LAB BLOOD ORDERABLES Final Result Performing Organization Address [facility] Co de Phone Number [facility] [place] [address] * (ABNORMAL) POCT glucose (01/03/2025 8:10 PM CDT) Glucose, POC 250(H) 70 - 199 mg/dL Blood 01/03/2025 8:10 PM CDT 01/03/2025 8:10 PM CDT Meño Yeager MD LAB POCT ORDERABLES - DEVICE Final Result Performing Organization Address [facility] Co de Phone Number [facility] [place] [address] * (ABNORMAL) POCT glucose (01/03/2025 5:06 PM CDT) Glucose, POC 257(H) 70 - 199 mg/dL Comment:Glu2: RN/ Notified Glucose comment 1 Glu2: RN/MD Notified [facility] Blood 01/03/2025 5:06 PM CDT 01/03/2025 5:06 PM CDT Meño Yeager MD LAB POCT ORDERABLES - DEVICE Final Result Performing Organization Address [facility] Co de Phone Number [facility] [place] [address] * (ABNORMAL) POCT glucose (01/03/2025 11:47 AM CDT) Glucose, POC 322(H) 70 - 199 mg/dL Comment:Glu2: RN/MD Notified Glucose comment 1 Glu2: RN/MD Notified [facility] Blood 01/03/2025 11:4 7 AM CDT 01/03/2025 11:47 AM CDT us Meño Yeager MD LAB POCT ORDERABLES - DEVICE Final Result Performing Organization Address City/[facility]/ZIP Co de Phone Number [facility] [place] [address] * (ABNORMAL) POCT glucose (01/03/2025 8:22 AM CDT) Pathologist [facility] Glucose, POC 257(H) 70 - 199 mg/dL Comment:Glu2: RN/MD Notified Glucose comment 1 Glu2: RN/MD Notified [facility] Blood 01/03/2025 8:22 AM CDT 01/03/2025 8:22 AM CDT Meño Yeager MD LAB POCT ORDERABLES - DEVICE Final Result Performing Organization Address [facility] Co de Phone Number [facility] [place] [address] * ECG 12 lead (01/03/2025 5:36 AM CDT) [facility] Ventricular Rate EKG/Min 70 BPM [facility] Atrial Rate 60 BPM [facility] HI-Interval (MSEC) 256 ms [facility] QRS-Interval (MSEC) 98 ms [facility] QT-Interval (MSEC) 520 ms [facility] QTc 561 ms [facility] P [place] 62 degrees [facility] R [place] -3 degrees [facility] T [place] 110 degrees [facility] Diagnosis Atrial-paced rhythm with prolonged AV conduction with Premature supraventricular complexes ST & T wave abnormality, consider anterolateral ischemia Prolonged QT Abnormal ECG When compared with ECG of 27-DEC-2024 06:25, Premature supraventricular complexes are now Present Questionable change in QRS axis Confirmed by MONICA VELASCO M.D ([id number]) on 01/03/2025 9:50:57 AM [facility] 01/03/2025 5:36 AM CDT 01/03/2025 9:50 AM CDT us Radha Almonte [employer] ECG ORDERABLES Final Resu lt [facility] * (ABNORMAL) eGFR (01/03/2025 4:39 AM CDT) eGFR 31(L) >=60 mL/min/1. 73 m2 [...] BLOOD ORDERABLES Final Result Performing Organization Address City/[facility] Co de Phone Number [facility] Department [place] [address] * (ABNORMAL) CBC without differential (01/03/2025 4:39 AM CDT) WBC 10.59(H) 3.80 - 9.90 K/cumm Hgb 10.3(L) 13.0 - 17.5 g/dL [facility] Hct 31.2(L) 38.9 - 50.3 % [facility] Plt 309 150 - 400 K/cumm [facility] MPV 10.1 9.1 - 12.3 fL [facility] RBC 3.33(L) 4.30 - 5.80 M/cumm [facility] MCV 93.7 81.3 - 96.4 fL [facility] MCH 30.9 27.1 - 33.3 pg [facility] MCHC 33.0 32.3 - 35.7 g/dL [facility] RDW CV 16.3(H) 11.1 - 14.9 % [facility] RDW SD 55.1(H) 35.7 - 48.1 fL [facility] NRBC abs 0.00 0.00 - 0.01 K/cumm [facility] Blood 01/03/2025 4:39 AM CDT 01/03/2025 6:33 AM CDT us Radha Almonte [employer] LAB BLOOD ORDERABLES Final Result Performing Organization Address [facility] Co de Phone Number [facility] Department [place] [address] * (ABNORMAL) Phosphorus (01/03/2025 4:39 AM CDT) Phosphorus, pl 5.0(H) 2.3 - 4.5 mg/dL Blood 01/03/2025 4:39 AM CDT 01/03/2025 6:14 AM CDT us Radha Almonte [employer] LAB BLOOD ORDERABLES Final Result Performing Organization Address [facility] de Phone Number [facility] Department [place] [address] * Magnesium (01/03/2025 4:39 AM CDT) Magnesium 1.8 1.4 - 2.5 mg/dL Blood 01/03/2025 4:39 AM CDT 01/03/2025 6:14 AM CDT us Radha Almonte [employer] LAB BLOOD ORDERABLES Final Result Performing Organization Address [facility] Co de Phone Number [facility] [place] [address] * (ABNORMAL) Hemoglobin A1c (01/03/2025 4:39 AM CDT) Pathologist [facility] Hgb A1C 6.4(H) 4.0 - 5.6 % Estimated Average Glucose 137 mg/dL [facility] Comment: The ADA recommends reporting an estimated Average Glucose (eAG) with all Hemoglobin A1c results using the equation derived from a study of 507 normal and diabetic adults. Minority populations were underrepresented and children were not included. (Diabetes Care 2020; 43(S1): S66-S76). The eAG is not equivalent to a fasting glucose. Blood 01/03/2025 4:39 AM CDT 01/03/2025 6:14 AM CDT Narrative [facility] - 01/03/2025 7:58 AM CDT Indication for repeat testing:->Health monitoring Radha Almonte NP LAB BLOOD ORDERABLES Final Result [facility] Department [place] [address] * (ABNORMAL) Hepatic function panel (01/03/2025 4:39 AM CDT) [facility] Bilirubin, total 0.3 0.1 - 1.2 mg/dL Bilirubin, direct <0.2 0.1 - 0.3 mg/dL [facility] Comment:Reviewed Protein, pl 6.2(L) 6.5 - 8.5 g/dL [facility] Albumin 2.9(L) 3.5 - 5.0 g/dL [facility] Alk phos 95 40 - 130 Units/L [facility] ALT 181(H) 7 - 55 Units/L [facility] AST 63(H) 10 - 50 Units/L [facility] Blood 01/03/2025 4:39 AM CDT 01/03/2025 6:14 AM CDT Radha Almonte [employer] LAB BLOOD ORDERABLES Final Result [facility] Department [place] [address] * (ABNORMAL) Basic metabolic panel (01/03/2025 4:39 AM CDT) Sodium 137 135 - 145 mmol/L Potassium, pl 3.6 3.3 - 4.9 mmol/L [facility] Chloride 92(L) 97 - 110 mmol/L [facility] CO2 31 22 - 32 mmol/L [facility] Anion gap 14 2 - 15 mmol/L [facility] BUN 40(H) 6 - 25 mg/dL [facility] Creatinine 2.15(H) 0.80 - 1.30 mg/dL [facility] Glucose 236(H) 70 - 199 mg/dL [facility] Comment: Interpretive Data Fasting glucose >/= [...] Calcium 8.8 8.5 - 10.3 mg/dL [facility] Blood 01/03/2025 4:39 AM CDT 01/03/2025 6:14 AM CDT Radha Almonte NP LAB BLOOD ORDERABLES Final Result [facility] Department [place] [address] * (ABNORMAL) POCT glucose (01/03/2025 1:54 AM CDT) Glucose, POC 268(H) 70 - 199 mg/dL Blood 01/03/2025 1:5 4 AM CDT 01/03/2025 1:54 AM CDT Meño Yeager MD LAB POCT ORDERABLES - DEVICE Final Result Performing Organization Address [facility] [place] Co de Phone Number [facility] Department [place] [employer] [place] [address] * (ABNORMAL) POCT glucose (01/02/2025 8:19 PM CDT) [facility] Glucose, POC 276(H) 70 - 199 mg/dL Comment:Glu2: RN/MD Notified Glucose comment 1 Glu2: RN/MD Notified [facility] Blood 01/02/2025 8:19 PM CDT 01/02/2025 8:19 PM CDT Meño Yeager MD LAB POCT ORDERABLES - DEVICE Final Result Performing Organization Address [facility] Co de Phone Number [facility] [place] [employer] [address] * Troponin I high-sensitivity 4-hour (01/02/2025 6:21 PM CDT) [facility] Trop I hs 34 <=35 ng/L Comment: Interpretive Data For further hscTnI resources including the diagnostic algorithm and an aid in interpretation, copy and paste this link: https://bjhlab.testcatalog.org/show/hsTrop-1 Current Interpretive Data last revised 2019. Trop I hs delta 6 ng/L [facility] Trop I hs interp Equivocal [facility] Blood 01/02/2025 6:21 PM CDT 01/02/2025 6:33 PM CDT Barbra Lopez MD LAB BLOOD ORDERABLES Final Result Performing Organization Address [facility] Co de Phone Number [facility] [place] [employer] [address] * (ABNORMAL) POCT glucose (01/02/2025 5:02 PM CDT) Pathologist [facility] Glucose, POC 208(H) 70 - 199 mg/dL Blood 01/02/2025 5:02 PM CDT 01/02/2025 5:02 PM CDT Obdulio Castro MD LAB POCT ORDERABLES - D EVICE Final Result Performing Organization Address [facility] de Phone Number [facility] [place] [address] * Troponin I high-sensitivity 2-hour (01/02/2025 4:14 PM CDT) [facility] Trop I hs 27 <=35 ng/L Comment: Interpretive Data For further hscTnI resources including the diagnostic algorithm and an aid in interpretation, copy and paste this link: https://bjhlab.testcatalog.org/show/hsTrop-1 Current Interpretive Data last revised 2019. Trop I hs delta -1 ng/L [facility] Trop I hs interp Insignificant [facility] Blood 01/02/2025 4:14 PM CDT 01/02/2025 4:36 PM CDT us Barbra Lopez MD LAB BLOOD ORDERABLES Final Result Performing Organization Address [facility] Co de Phone Number [facility] [place] [address] * (ABNORMAL) POCT glucose (01/02/2025 4:09 PM CDT) [facility] Glucose, POC 201(H) 70 - 199 mg/dL Blood 01/02/2025 4:09 PM CDT 01/02/2025 4:09 PM CDT Obdulio Castro MD LAB POCT ORDERABLES - D EVICE Final Result [facility] Department [place] [address] * XR Chest 1 Vw Portable (01/02/2025 [...] 12-LEAD (01/02/2025 3:33 PM CDT) Narrative MUSE [facility] - 01/02/2025 3:33 PM CDT Barbra Lopez [...] Lopez MD ECG ORDERABLES Final Resul t [facility] * ECG 12-LEAD (01/02/2025 3:32 PM CDT) Narrative MUSE [facility] - 01/02/2025 3:32 PM CDT Barbra Lopez [...] Lopez MD ECG ORDERABLES Final Resul t [facility] * HI CRITICAL CARE ILL/INJURED PATIENT INIT 30-74 MIN [...] bedside patient exams Cardiology consult and considerationof labor relations analyst. I provided emergent necessary critical care medicine [...] Type and screen (01/02/2025 2:33 PM CDT) [facility] Terry, indirect Negative ABO Rh A Positive [facility] Blood 01/02/2025 2:33 PM CDT 01/02/2025 2:44 PM CDT Narrative [facility] - 01/02/2025 3:31 PM CDT Has the patient had Daratumumab or Isatuximab in the past 6 months?->Unknown Barbra Lopez MD LAB BLOOD BANK TEST ORDERAB LES Final Result Performing Organization Address [facility]/ZIP Co de Phone Number [facility] [place] [address] * Troponin I high-sensitivity series (baseline, 2hr, 4hr, 6hr) (01/02/2025 2:24 PM CDT) [facility] Trop I hs 28 <=35 ng/L Comment: Interpretive Data For further hscTnI resources including the diagnostic algorithm and an aid in interpretation, copy and paste this link: https://bjhlab.testcatalog.org/show/hsTrop-1 Current Interpretive Data last revised 2019. Blood 01/02/2025 2:24 PM CDT 01/02/2025 2:43 PM CDT Barbra Lopez MD LAB BLOOD ORDERABLES Final Result Performing Organization Address [facility]/ZIP Co de Phone Number [facility] Department [place] [address] * (ABNORMAL) eGFR (01/02/2025 2:24 PM CDT) [facility] eGFR 42(L) >=60 mL/min/1. 73 m2 Comment: [...] MD LAB BLOOD ORDERABLES Final Result [facility] Department [place] [address] * (ABNORMAL) Differential, auto (01/02/2025 2:24 PM CDT) Neutrophil abs 7.22(H) 1.50 - 6.50 K/cumm Imm gran abs 0.02 0.00 - 0.10 K/cumm [facility] Lymphocyte abs 1.59 0.80 - 3.30 K/cumm [facility] Monocyte abs 0.93(H) 0.20 - 0.80 K/cumm [facility] Eosinophil abs 0.10 0.00 - 0.50 K/cumm [facility] Basophil abs 0.05 0.00 - 0.10 K/cumm [facility] Neutrophil pct 72.9 % [facility] Comment: Interpretive Data Percent cell count reference ranges are not reported, since discordance with absolute values may lead to misinterpretation of CBC data. Current Interpretive Data was last revised on 2017. Imm gran pct 0.2 % [facility] Comment: Interpretive Data Percent cell count reference ranges are not reported, since discordance with absolute values may lead to misinterpretation of CBC data. Current Interpretive Data was last revised on 2017. Lymphocyte pct 16.0 % [facility] Comment: Interpretive Data Percent cell count reference ranges are not reported, since discordance with absolute values may lead to misinterpretation of CBC data. Current Interpretive Data was last revised on 2017. Monocyte pct 9.4 % [facility] Comment: Interpretive Data Percent cell count reference ranges are not reported, since discordance with absolute values may lead to misinterpretation of CBC data. Current Interpretive Data was last revised on 2017. Eosinophil pct 1.0 % [facility] Comment: Interpretive Data Percent cell count reference ranges are not reported, since discordance with absolute values may lead to misinterpretation of CBC data. Current Interpretive Data was last revised on 2017. Basophil pct 0.5 % [facility] Comment: Interpretive Data Percent cell count reference ranges are not reported, since discordance with absolute values may lead to misinterpretation of CBC data. Current Interpretive Data was last revised on 2017. Blood 01/02/2025 2:24 PM CDT 01/02/2025 2:43 PM CDT us Barbra Lopez MD LAB BLOOD ORDERABLES Final Result [facility] Department [place] [address] * (ABNORMAL) CBC with auto differential (01/02/2025 2:24 PM CDT) WBC 9.91(H) 3.80 - 9.90 K/cumm Hgb 10.9(L) 13.0 - 17.5 g/dL [facility] Hct 34.2(L) 38.9 - 50.3 % [facility] Plt 353 150 - 400 K/cumm [facility] MPV 10.0 9.1 - 12.3 fL [facility] RBC 3.58(L) 4.30 - 5.80 M/cumm [facility] MCV 95.5 81.3 - 96.4 fL [facility] MCH 30.4 27.1 - 33.3 pg [facility] MCHC 31.9(L) 32.3 - 35.7 g/dL [facility] RDW CV 16.3(H) 11.1 - 14.9 % [facility] RDW SD 57.1(H) 35.7 - 48.1 fL [facility] NRBC abs 0.00 0.00 - 0.01 K/cumm [facility] Blood 01/02/2025 2:24 PM CDT 01/02/2025 2:43 PM CDT Barbra Lopez MD LAB BLOOD ORDERABLES Final Result Performing Organization Address [facility] de Phone Number [facility] [place] [employer] [address] * aPTT (01/02/2025 2:24 PM CDT) aPTT 30 26 - 38 sec Comment: Interpretive Data Heparin therapeutic range: 66.0 - 100.0 seconds. Range based on correlation with therapeutic heparin activity range of 0.3 - 0.7 Units/mL. Current interpretive data was last revised on 2023. Blood 01/02/2025 2:24 PM CDT 01/02/2025 2:35 PM CDT Barbra Lopez MD LAB BLOOD ORDERABLES Final Result Performing Organization Address [place]/[facility] de Phone Number [facility] [place] [address] * (ABNORMAL) Protime-INR (01/02/2025 2:24 PM CDT) PT 22.9(H) 10.2 - 13.5 sec INR 2.06(H) 0.90 - 1.20 [facility] Comment: Interpretive data Oral anticoagulant therapeutic ranges: Venous thromboembolism prophylaxis or treatment: 2.0-3.0 CARDIOLOGY Standard range: 2.0-3.0 High-intensity range: 2.5-3.5 Refer to indication-specific guidelines for appropriate target ranges for prosthetic heart valve replacement. Current interpretive data was last revised on 2019. Blood 01/02/2025 2:24 PM CDT 01/02/2025 2:35 PM CDT us Barbra Lopez MD LAB BLOOD ORDERABLES Final Result [facility] Department [place] [address] * (ABNORMAL) Comprehensive metabolic panel (01/02/2025 2:24 PM CDT) Sodium 138 135 - 145 mmol/L Potassium, pl 3.9 3.3 - 4.9 mmol/L [facility] Comment:Hemolyzed; Potassium value may be falsely elevated by as much as 0.6-1.0 mmol/L. Suggest redraw and reanalysis. Chloride 93(L) 97 - 110 mmol/L [facility] Comment:Repeated and Verifie d CO2 31 22 - 32 mmol/L [facility] Anion gap 14 2 - 15 mmol/L [facility] BUN 35(H) 6 - 25 mg/dL [facility] Creatinine 1.67(H) 0.80 - 1.30 mg/dL [facility] Glucose 235(H) 70 - 199 mg/dL [facility] Comment: Interpretive Data Fasting glucose >/= [...] Calcium 9.7 8.5 - 10.3 mg/dL [facility] Bilirubin, total 0.3 0.1 - 1.2 mg/dL [facility] Protein, pl 7.1 6.5 - 8.5 g/dL [facility] Albumin 3.0(L) 3.5 - 5.0 g/dL [facility] Alk phos 106 40 - 130 Units/L [facility] ALT 213(H) 7 - 55 Units/L [facility] AST 90(H) 10 - 50 Units/L [facility] Comment: Hemolyzed; result may be falsely elevated Reviewed Blood 01/02/2025 2:24 PM CDT 01/02/2025 2:44 PM CDT us Barbra Lopez MD LAB BLOOD ORDERABLES Final Result Performing Organization Address [facility]/ZIP Co de Phone Number [facility] [place] [address] * (ABNORMAL) POCT glucose (01/02/2025 2:15 PM CDT) Glucose, POC 240(H) 70 - 199 mg/dL Blood 01/02/2025 2:15 PM CDT 01/02/2025 2:15 PM CDT us Notinfile Unknown LAB POCT ORDERABLES - DEVICE F inal Result Performing Organization Address [facility] Co de Phone Number [facility] [place] [address] * (ABNORMAL) POCT glucose (12/27/2024 11:05 AM CDT) Glucose, POC 257(H) 70 - 199 mg/dL Blood 12/27/2024 11:0 5 AM CDT 12/27/2024 11:05 AM CDT us Meño Yeager MD LAB POCT ORDERABLES - DEVICE Final Result Performing Organization Address [facility] Co de Phone Number [facility] [place] [employer] [address] * POCT glucose (12/27/2024 7:59 AM CDT) Glucose, POC 192 70 - 199 mg/dL Blood 12/27/2024 7:59 AM CDT 12/27/2024 7:59 AM CDT us Meño Yeager MD LAB POCT ORDERABLES - DEVICE Final Result Performing Organization Address [facility]/ZIP Co de Phone Number [facility] Department [place] [address] * ECG 12 lead (12/27/2024 6:25 AM CDT) Ventricular Rate EKG/Min 60 BPM [facility] Atrial Rate 60 BPM [facility] HI-Interval (MSEC) 240 ms [facility] QRS-Interval (MSEC) 102 ms [facility] QT-Interval (MSEC) 518 ms [facility] QTc 518 ms [facility] P [place] 82 degrees [facility] R [place] 60 degrees [facility] T [place] -70 degrees [facility] Diagnosis Atrial-paced rhythm with prolonged AV conduction Poor data quality, interpretation may be adversely affected ST & T wave abnormality, consider anterolateral ischemia Abnormal ECG When compared with ECG of 24-DEC-2024 02:40, ST more depressed in Lateral leads Confirmed by MONICA VELASCO M.D ([id number]) on 12/28/2024 9:57:08 AM [facility] 12/27/2024 6:25 AM CDT 12/28/2024 9:57 AM CDT us Payton Lennon NP ECG ORDERABLES Final Result Performing Organization Address [place]/[facility]/ZIP Co de Phone Number [facility] * POCT glucose (12/27/2024 1:24 AM CDT) Glucose, POC 121 70 - 199 mg/dL Blood 12/27/2024 1:24 AM CDT 12/27/2024 1:24 AM CDT Meño Yeager MD LAB POCT ORDERABLES - DEVICE Final Result Performing Organization Address [facility] Co de Phone Number [facility] Department [place] [address] * (ABNORMAL) eGFR (12/26/2024 10:07 PM CDT) Pathologist [facility] eGFR 43(L) >=60 mL/min/1. 73 m2 Comment: [...] BLOOD ORDERABLES Final Result Performing Organization Address [facility]/ZIP Co de Phone Number [facility] Department [place] [address] * (ABNORMAL) CBC without differential (12/26/2024 10:07 PM CDT) Pathologist [facility] WBC 5.99 3.80 - 9.90 K/cumm Hgb 9.5(L) 13.0 - 17.5 g/dL [facility] Hct 29.3(L) 38.9 - 50.3 % [facility] Plt 196 150 - 400 K/cumm [facility] MPV 9.5 9.1 - 12.3 fL [facility] RBC 3.08(L) 4.30 - 5.80 M/cumm [facility] MCV 95.1 81.3 - 96.4 fL [facility] MCH 30.8 27.1 - 33.3 pg [facility] MCHC 32.4 32.3 - 35.7 g/dL [facility] RDW CV 17.3(H) 11.1 - 14.9 % [facility] RDW SD 58.9(H) 35.7 - 48.1 fL [facility] NRBC abs 0.00 0.00 - 0.01 K/cumm [facility] Blood 12/26/2024 10:0 7 PM CDT 12/26/2024 10:48 PM CDT Meño Yeager MD LAB BLOOD ORDERABLES Final Result Performing Organization Address [facility]/ZIP Co de Phone Number [facility] Department [place] [address] * Type and screen (12/26/2024 10:07 PM CDT) [facility] Terry, indirect Negative ABO Rh A Positive [facility] Blood 12/26/2024 10:0 7 PM CDT 12/26/2024 10:48 PM CDT Narrative [facility] - 12/26/2024 11:34 PM CDT Has the patient had Daratumumab or Isatuximab in the past 6 months?->Unknown Radha Almonte NP LAB BLOOD BANK TEST ORDERA BLES Final Result [facility] [place] [address] * Phosphorus (12/26/2024 10:07 PM CDT) Phosphorus, pl 2.8 2.3 - 4.5 mg/dL Blood 12/26/2024 10:0 7 PM CDT 12/26/2024 10:50 PM CDT Meño Yeager MD LAB BLOOD ORDERABLES Final Result Performing Organization Address [facility] Co de Phone Number [facility] [place] [address] * Magnesium (12/26/2024 10:07 PM CDT) [facility] Magnesium 1.9 1.4 - 2.5 mg/dL Blood 12/26/2024 10:0 7 PM CDT 12/26/2024 10:50 PM CDT Meño Yeager MD LAB BLOOD ORDERABLES Final Result Performing Organization Address [facility] de Phone Number [facility] [place] [address] * (ABNORMAL) Basic metabolic panel (12/26/2024 10:07 PM CDT) [facility] Sodium 137 135 - 145 mmol/L Potassium, pl 3.7 3.3 - 4.9 mmol/L [facility] Chloride 105 97 - 110 mmol/L [facility] CO2 26 22 - 32 mmol/L [facility] Anion gap 6 2 - 15 mmol/L [facility] BUN 24 6 - 25 mg/dL [facility] Creatinine 1.63(H) 0.80 - 1.30 mg/dL [facility] Glucose 163 70 - 199 mg/dL [facility] Comment: Interpretive Data Fasting glucose >/= [...] Calcium 7.9(L) 8.5 - 10.3 mg/dL [facility] Blood 12/26/2024 10:0 7 PM CDT 12/26/2024 10:50 PM CDT Radha Almonte [employer] LAB BLOOD ORDERABLES Final Result Performing Organization Address City/[facility]/ZIP Co de Phone Number [facility] [place] [address] * POCT glucose (12/26/2024 8:14 PM CDT) Glucose, POC 185 70 - 199 mg/dL Blood 12/26/2024 8:14 PM CDT 12/26/2024 8:14 PM CDT Meño Yeager MD LAB POCT ORDERABLES - DEVICE Final Result Performing Organization Address City/[facility] Co de Phone Number [facility] [place] [address] * POCT glucose (12/26/2024 5:14 PM CDT) Glucose, POC 87 70 - 199 mg/dL Blood 12/26/2024 5:14 PM CDT 12/26/2024 5:14 PM CDT Meño Yeager MD LAB POCT ORDERABLES - DEVICE Final Result Performing Organization Address City/[facility] Co de Phone Number [facility] [place] [address] * (ABNORMAL) POCT glucose (12/26/2024 12:01 PM CDT) Glucose, POC 217(H) 70 - 199 mg/dL Blood 12/26/2024 12:0 1 PM CDT 12/26/2024 12:01 PM CDT Meño Yeager MD LAB POCT ORDERABLES - DEVICE Final Result Performing Organization Address [facility] de Phone Number [facility] [place] [address] * POCT glucose (12/26/2024 7:29 AM CDT) Glucose, POC 131 70 - 199 mg/dL Blood 12/26/2024 7:29 AM CDT 12/26/2024 7:29 AM CDT Meño Yeager MD LAB POCT ORDERABLES - DEVICE Final Result Performing Organization Address [facility] de Phone Number [facility] [place] [address] * POCT glucose (12/26/2024 2:01 AM CDT) Glucose, POC 101 70 - 199 mg/dL Blood 12/26/2024 2:01 AM CDT 12/26/2024 2:01 AM CDT Meño Yeager MD LAB POCT ORDERABLES - DEVICE Final Result Performing Organization Address [facility] de Phone Number [facility] [place] [address] * (ABNORMAL) POCT glucose (12/25/2024 7:30 PM CDT) Glucose, POC 216(H) 70 - 199 mg/dL Blood 12/25/2024 7:30 PM CDT 12/25/2024 7:30 PM CDT Meño Yeager MD LAB POCT ORDERABLES - DEVICE Final Result [facility] [place] [address] * POCT glucose (12/25/2024 5:39 PM CDT) Glucose, POC 117 70 - 199 mg/dL Blood 12/25/2024 5:39 PM CDT 12/25/2024 5:39 PM CDT Meño Yeager MD LAB POCT ORDERABLES - DEVICE Final Result Performing Organization Address [facility] Co de Phone Number [facility] [place] [address] * (ABNORMAL) POCT glucose (12/25/2024 12:21 PM CDT) Glucose, POC 222(H) 70 - 199 mg/dL Blood 12/25/2024 12:2 1 PM CDT 12/25/2024 12:21 PM CDT Meño Yeager MD LAB POCT ORDERABLES - DEVICE Final Result Performing Organization Address City/[facility]/ZIP Co de Phone Number [facility] [place] [address] * POCT glucose (12/25/2024 7:19 AM CDT) Glucose, POC 123 70 - 199 mg/dL Blood 12/25/2024 7:19 AM CDT 12/25/2024 7:19 AM CDT Meño Yeager MD LAB POCT ORDERABLES - DEVICE Final Result Performing Organization Address City/[facility]/ZIP Co de Phone Number [facility] [place] [address] * POCT glucose (12/25/2024 3:55 AM CDT) Glucose, POC 119 70 - 199 mg/dL Blood 12/25/2024 3:55 AM CDT 12/25/2024 3:55 AM CDT Meño Yeager MD LAB POCT ORDERABLES - DEVICE Final Result Performing Organization Address City/[facility]/ZIP Co de Phone Number [facility] [place] [address] * (ABNORMAL) eGFR (12/24/2024 8:56 PM CDT) Pathologist [facility] eGFR 36(L) >=60 mL/min/1. 73 m2 Comment: [...] BLOOD ORDERABLES Final Result Performing Organization Address City/[facility]/ZIP Co de Phone [facility] [place] [address] * (ABNORMAL) CBC without differential (12/24/2024 8:56 PM CDT) Pathologist [facility] WBC 7.28 3.80 - 9.90 K/cumm Hgb 9.2(L) 13.0 - 17.5 g/dL [facility] Hct 28.8(L) 38.9 - 50.3 % [facility] Plt 224 150 - 400 K/cumm [facility] MPV 9.7 9.1 - 12.3 fL [facility] RBC 2.99(L) 4.30 - 5.80 M/cumm [facility] MCV 96.3 81.3 - 96.4 fL [facility] MCH 30.8 27.1 - 33.3 pg [facility] MCHC 31.9(L) 32.3 - 35.7 g/dL [facility] RDW CV 17.6(H) 11.1 - 14.9 % [facility] RDW SD 60.9(H) 35.7 - 48.1 fL [facility] NRBC abs 0.00 0.00 - 0.01 K/cumm [facility] Blood 12/24/2024 8:56 PM CDT 12/24/2024 9:52 PM CDT Meño Yeager MD LAB BLOOD ORDERABLES Final Result Performing Organization Address [facility] Co de Phone Number [facility] [place] [address] * Phosphorus (12/24/2024 8:56 PM CDT) Pathologist [facility] Phosphorus, pl 3.1 2.3 - 4.5 mg/dL Blood 12/24/2024 8:56 PM CDT 12/24/2024 9:52 PM CDT Meño Yeager MD LAB BLOOD ORDERABLES Final Result [facility] [place] [address] * Magnesium (12/24/2024 8:56 PM CDT) Pathologist [facility] Magnesium 2.2 1.4 - 2.5 mg/dL Blood 12/24/2024 8:56 PM CDT 12/24/2024 9:52 PM CDT us Meño Yeager MD LAB BLOOD ORDERABLES Final Result [facility] Department [facility] [place] [place] [address] * (ABNORMAL) Basic metabolic panel (12/24/2024 8:56 PM CDT) Pathologist [facility] Sodium 136 135 - 145 mmol/L Potassium, pl 4.0 3.3 - 4.9 mmol/L [facility] Chloride 103 97 - 110 mmol/L [facility] CO2 26 22 - 32 mmol/L [facility] Anion gap 7 2 - 15 mmol/L [facility] BUN 35(H) 6 - 25 mg/dL [facility] Creatinine 1.91(H) 0.80 - 1.30 mg/dL [facility] Glucose 129 70 - 199 mg/dL [facility] Comment: Interpretive Data Fasting glucose >/= [...] Calcium 8.1(L) 8.5 - 10.3 mg/dL [facility] Blood 12/24/2024 8:56 PM CDT 12/24/2024 9:52 PM CDT us Radha Almonte NP LAB BLOOD ORDERABLES Final Result Performing Organization Address City/[facility]/ZIP Co de Phone Number [facility] [place] [address] * POCT glucose (12/24/2024 8:40 PM CDT) Glucose, POC 167 70 - 199 mg/dL Blood 12/24/2024 8:40 PM CDT 12/24/2024 8:40 PM CDT us Meño Yeager MD LAB POCT ORDERABLES - DEVICE Final Result Performing Organization Address [facility] [place] [address] * POCT glucose (12/24/2024 5:19 PM CDT) Glucose, POC 150 70 - 199 mg/dL Blood 12/24/2024 5:19 PM CDT 12/24/2024 5:19 PM CDT us Meño Yeager MD LAB POCT ORDERABLES - DEVICE Final Result Performing Organization Address [facility]/ZIP Co de Phone Number [facility] [place] [address] * POCT glucose (12/24/2024 12:40 PM CDT) Glucose, POC 169 70 - 199 mg/dL Blood 12/24/2024 12:4 0 PM CDT 12/24/2024 12:40 PM CDT us Meño Yeager MD LAB POCT ORDERABLES - DEVICE Final Result Performing Organization Address City/[facility]/ZIP Co de Phone Number [facility] [place] [address] * POCT glucose (12/24/2024 8:55 AM CDT) Glucose, POC 127 70 - 199 mg/dL Blood 12/24/2024 8:55 AM CDT 12/24/2024 8:55 AM CDT us Meño Yeager MD LAB POCT ORDERABLES - DEVICE Final Result Performing Organization Address City/[facility]/ZIP Co de Phone Number [facility] Department [place] [address] * ECG 12 lead (12/24/2024 2:40 AM CDT) [facility] Ventricular Rate EKG/Min 60 BPM [facility] Atrial Rate 60 BPM [facility] HI-Interval (MSEC) 272 ms [facility] QRS-Interval (MSEC) 90 ms [facility] QT-Interval (MSEC) 542 ms [facility] QTc 542 ms [facility] P [place] 57 degrees [facility] R [place] -11 degrees [facility] T [place] 152 degrees [facility] Diagnosis Atrial-paced rhythm with prolonged AV conduction Long QT interval T inversion anterior leads consider anterior ischemia or stress cardiomyopathy Abnormal ECG When compared with ECG of 23-DEC-2024 09:59, No significant change was found Confirmed by fellow Braxton Peera ([id number]) on 12/26/2024 9:10:27 AM Confirmed by MONICA VELASCO M.D ([id number]) on 12/26/2024 10:19:22 AM [facility] 12/24/2024 2:40 AM CDT 12/26/2024 10:19 AM CDT us Jinny Simms [employer] ECG ORDERABLES Final Result [facility] * POCT glucose (12/24/2024 2:16 AM CDT) Glucose, POC 124 70 - 199 mg/dL Blood 12/24/2024 2:16 AM CDT 12/24/2024 2:16 AM CDT Meño Yeager MD LAB POCT ORDERABLES - DEVICE Final Result Performing Organization Address [facility] Co de Phone Number [facility] Department [place] [address] * (ABNORMAL) eGFR (12/23/2024 10:27 PM CDT) [...] BLOOD ORDERABLES Final Result Performing Organization Address City/[facility]/ZIP Co de Phone Number [facility] Department [place] [address] * (ABNORMAL) Protime-INR (12/23/2024 10:27 PM CDT) PT 19.1(H) 9.7 - 13.0 sec INR 1.75(H) 0.90 - 1.[address] [facility] Comment: Interpretive data Oral anticoagulant therapeutic ranges: Venous thromboembolism prophylaxis or treatment: 2.0-3.0 CARDIOLOGY Standard range: 2.0-3.0 High-intensity range: 2.5-3.5 Refer to indication-specific guidelines for appropriate target ranges for prosthetic heart valve replacement. Current interpretive data was last revised on 2019. Blood 12/23/2024 10:2 7 PM CDT 12/23/2024 10:47 PM CDT us Meño Yeager MD LAB BLOOD ORDERABLES Final Result Performing Organization Address City/[facility] Co de Phone Number [facility] Department [place] [address] * (ABNORMAL) CBC without differential (12/23/2024 10:27 PM CDT) WBC 7.67 3.80 - 9.90 K/cumm Hgb 8.7(L) 13.0 - 17.5 g/dL [facility] Hct 26.2(L) 38.9 - 50.3 % [facility] Plt 217 150 - 400 K/cumm [facility] MPV 9.4 9.1 - 12.3 fL [facility] RBC 2.73(L) 4.30 - 5.80 M/cumm [facility] MCV 96.0 81.3 - 96.4 fL [facility] MCH 31.9 27.1 - 33.3 pg [facility] MCHC 33.2 32.3 - 35.7 g/dL [facility] RDW CV 17.7(H) 11.1 - 14.9 % [facility] RDW SD 59.2(H) 35.7 - 48.1 fL [facility] NRBC abs 0.02(H) 0.00 - 0.01 K/cumm [facility] Blood 12/23/2024 10:2 7 PM CDT 12/23/2024 10:53 PM CDT Meño Yeager MD LAB BLOOD ORDERABLES Final Result Performing Organization Address City/[facility] Co de Phone Number [facility] [place] [address] * Type and screen (12/23/2024 10:27 PM CDT) Terry, indirect Negative ABO Rh A Positive [facility] Blood 12/23/2024 10:2 7 PM CDT 12/23/2024 10:53 PM CDT Narrative [facility] - 12/23/2024 11:53 PM CDT Has the patient had Daratumumab or Isatuximab in the past 6 months?->Unknown Radha Almonte NP LAB BLOOD BANK TEST ORDERA BLES Final Result Performing Organization Address [facility] Co de Phone Number [facility] [place] [address] * Phosphorus (12/23/2024 10:27 PM CDT) Phosphorus, pl 2.9 2.3 - 4.5 mg/dL Blood 12/23/2024 10:2 7 PM CDT 12/23/2024 10:52 PM CDT Meño Yeager MD LAB BLOOD ORDERABLES Final Result Performing Organization Address City/[facility]/ZIP Co de Phone Number [facility] Department [place] [address] * Magnesium (12/23/2024 10:27 PM CDT) Magnesium 2.3 1.4 - 2.5 mg/dL Blood 12/23/2024 10:2 7 PM CDT 12/23/2024 10:52 PM CDT Meño Yeager MD LAB BLOOD ORDERABLES Final Result Performing Organization Address City/[facility]/ZIP Co de Phone Number [facility] Department [place] [address] * (ABNORMAL) Basic metabolic panel (12/23/2024 10:27 PM CDT) [facility] Sodium 137 135 - 145 mmol/L Potassium, pl 3.8 3.3 - 4.9 mmol/L [facility] Chloride 104 97 - 110 mmol/L [facility] CO2 27 22 - 32 mmol/L [facility] Anion gap 6 2 - 15 mmol/L [facility] BUN 42(H) 6 - 25 mg/dL [facility] Creatinine 2.16(H) 0.80 - 1.30 mg/dL [facility] Glucose 123 70 - 199 mg/dL [facility] Comment: Interpretive Data Fasting glucose >/= [...] Calcium 7.7(L) 8.5 - 10.3 mg/dL [facility] Blood 12/23/2024 10:2 7 PM CDT 12/23/2024 10:52 PM CDT Radha Almonte NP LAB BLOOD ORDERABLES Final Result [facility] Department [place] [address] * POCT glucose (12/23/2024 8:08 PM CDT) [facility] Glucose, POC 188 70 - 199 mg/dL Blood 12/23/2024 8:08 PM CDT 12/23/2024 8:08 PM CDT Meño Yeager MD LAB POCT ORDERABLES - DEVICE Final Result Performing Organization Address [facility] Co de Phone Number [facility] [place] [address] * (ABNORMAL) POCT glucose (12/23/2024 5:27 PM CDT) Glucose, POC 221(H) 70 - 199 mg/dL Blood 12/23/2024 5:27 PM CDT 12/23/2024 5:27 PM CDT Meño Yeager MD LAB POCT ORDERABLES - DEVICE Final Result Performing Organization Address [facility] de Phone Number [facility] [place] [address] * (ABNORMAL) POCT glucose (12/23/2024 12:02 PM CDT) Glucose, POC 296(H) 70 - 199 mg/dL Blood 12/23/2024 12:0 2 PM CDT 12/23/2024 12:02 PM CDT Meño Yeager MD LAB POCT ORDERABLES - DEVICE Final Result Performing Organization Address [facility] Co de Phone Number [facility] [place] [address] * (ABNORMAL) POCT glucose (12/23/2024 11:34 AM CDT) Glucose, POC 323(H) 70 - 199 mg/dL Blood 12/23/2024 11:3 4 AM CDT 12/23/2024 11:34 AM CDT Meño Yeager MD LAB POCT ORDERABLES - DEVICE Final Result Performing Organization Address City/[facility] Co de Phone Number [facility] Department [place] [address] * ECG 12 lead (12/23/2024 9:59 AM CDT) [facility] Ventricular Rate EKG/Min 60 BPM [facility] Atrial Rate 60 BPM [facility] HI-Interval (MSEC) 272 ms [facility] QRS-Interval (MSEC) 96 ms [facility] QT-Interval (MSEC) 542 ms [facility] QTc 542 ms [facility] P [place] 50 degrees [facility] R [place] 1 degrees [facility] T [place] 157 degrees [facility] Diagnosis Atrial-paced rhythm with prolonged AV conduction ST & T wave abnormality, consider anterolateral ischemia Prolonged QT Abnormal ECG When compared with ECG of 14-DEC-2024 23:52, Electronic atrial pacemaker has replaced Electronic ventricular pacemaker Confirmed by SILAS CARLIN M.D ([id number]) on 12/23/2024 12:32:56 PM [facility] 12/23/2024 9:59 AM CDT 12/23/2024 12:32 PM CDT us Payton Lennon NP ECG ORDERABLES Final Result [facility] * POCT glucose (12/23/2024 8:06 AM CDT) [facility] Glucose, POC 161 70 - 199 mg/dL Blood 12/23/2024 8:06 AM CDT 12/23/2024 8:06 AM CDT us Meño Yeager MD LAB POCT ORDERABLES - DEVICE Final Result [facility] Department [place] [address] * XR Chest 1 View (12/23/2024 7:48 [...] by: David Aguilar M.D. us Cher Nicholas [employer] IMG XR PROCEDURES Final Res ult * POCT glucose (12/23/2024 1:43 AM CDT) [facility] Glucose, POC 125 70 - 199 mg/dL Blood 12/23/2024 1:43 AM CDT 12/23/2024 1:43 AM CDT us Meño Yeager MD LAB POCT ORDERABLES - DEVICE Final Result Performing Organization Address [facility] de Phone Number [facility] Department [place] [address] * (ABNORMAL) eGFR (12/22/2024 10:13 PM CDT) [...] CDT 12/22/2024 10:57 PM CDT Radha Almonte NP LAB BLOOD ORDERABLES Final Result Performing Organization Address [facility] Co de Phone Number [facility] [place] [address] * (ABNORMAL) Protime-INR (12/22/2024 10:13 PM CDT) PT 16.4(H) 9.7 - 13.0 sec INR 1.51(H) 0.90 - 1.[address] [facility] Comment: Interpretive data Oral anticoagulant therapeutic ranges: Venous thromboembolism prophylaxis or treatment: 2.0-3.0 CARDIOLOGY Standard range: 2.0-3.0 High-intensity range: 2.5-3.5 Refer to indication-specific guidelines for appropriate target ranges for prosthetic heart valve replacement. Current interpretive data was last revised on 2019. Blood 12/22/2024 10:1 3 PM CDT 12/22/2024 10:56 PM CDT Meño Yeager MD LAB BLOOD ORDERABLES Final Result Performing Organization Address City/[facility]/ZIP Co de Phone Number [facility] Department [place] [address] * (ABNORMAL) CBC without differential (12/22/2024 10:13 PM CDT) WBC 11.84(H) 3.80 - 9.90 K/cumm Hgb 8.8(L) 13.0 - 17.5 g/dL [facility] Hct 28.3(L) 38.9 - 50.3 % [facility] Plt 226 150 - 400 K/cumm [facility] MPV 9.9 9.1 - 12.3 fL [facility] RBC 2.86(L) 4.30 - 5.80 M/cumm [facility] MCV 99.0(H) 81.3 - 96.4 fL [facility] MCH 30.8 27.1 - 33.3 pg [facility] MCHC 31.1(L) 32.3 - 35.7 g/dL [facility] RDW CV 17.9(H) 11.1 - 14.9 % [facility] RDW SD 58.7(H) 35.7 - 48.1 fL [facility] NRBC abs 0.10(H) 0.00 - 0.01 K/cumm [facility] Blood 12/22/2024 10:1 3 PM CDT 12/22/2024 10:57 PM CDT us Meño Yeager MD LAB BLOOD ORDERABLES Final Result Performing Organization Address City/[facility]/ZIP Co de Phone Number [facility] Department [place] [address] * Phosphorus (12/22/2024 10:13 PM CDT) [facility] Phosphorus, pl 2.9 2.3 - 4.5 mg/dL Blood 12/22/2024 10:1 3 PM CDT 12/22/2024 10:57 PM CDT Meño Yeager MD LAB BLOOD [place] [address] * Magnesium (12/22/2024 10:13 PM CDT) [facility] Magnesium 2.2 1.4 - 2.5 mg/dL Blood 12/22/2024 10:1 3 PM CDT 12/22/2024 10:57 PM CDT Meño Yeager MD LAB BLOOD [place] [address] * (ABNORMAL) Basic metabolic panel (12/22/2024 10:13 PM CDT) [facility] Sodium 139 135 - 145 mmol/L Potassium, pl 3.9 3.3 - 4.9 mmol/L [facility] Chloride 104 97 - 110 mmol/L [facility] CO2 26 22 - 32 mmol/L [facility] Anion gap 9 2 - 15 mmol/L [facility] BUN 43(H) 6 - 25 mg/dL [facility] Creatinine 2.29(H) 0.80 - 1.30 mg/dL [facility] Glucose 144 70 - 199 mg/dL [facility] Comment: Interpretive Data Fasting glucose >/= [...] Calcium 7.8(L) 8.5 - 10.3 mg/dL [facility] Blood 12/22/2024 10:1 3 PM CDT 12/22/2024 10:57 PM CDT Radha Almonte [employer] LAB BLOOD ORDERABLES Final Result Performing Organization Address City/[facility] Co de Phone Number [facility] [place] [address] * POCT glucose (12/22/2024 10:12 PM CDT) Glucose, POC 153 70 - 199 mg/dL Blood 12/22/2024 10:1 2 PM CDT 12/22/2024 10:12 PM CDT Meño Yeager MD LAB POCT ORDERABLES - DEVICE Final Result Performing Organization Address [facility] Co de Phone Number [facility] Department [place] [address] * POCT glucose (12/22/2024 10:10 PM CDT) Glucose, POC 157 70 - 199 mg/dL Blood 12/22/2024 10:1 0 PM CDT 12/22/2024 10:10 PM CDT Meño Yeager MD LAB POCT ORDERABLES - DEVICE Final Result Performing Organization Address [facility] Co de Phone Number [facility] Department [place] [address] * POCT glucose (12/22/2024 5:30 PM CDT) Glucose, POC 128 70 - 199 mg/dL Blood 12/22/2024 5:30 PM CDT 12/22/2024 5:30 PM CDT Meño Yeager MD LAB POCT ORDERABLES - DEVICE Final Result Performing Organization Address City/[facility] Co de Phone Number [facility] [place] [address] * (ABNORMAL) POCT glucose (12/22/2024 11:40 AM CDT) Glucose, POC 208(H) 70 - 199 mg/dL Blood 12/22/2024 11:4 0 AM CDT 12/22/2024 11:40 AM CDT Meño Yeager MD LAB POCT ORDERABLES - DEVICE Final Result Performing Organization Address [facility] Co de Phone Number [facility] [place] [address] * POCT glucose (12/22/2024 8:03 AM CDT) Glucose, POC 110 70 - 199 mg/dL Blood 12/22/2024 8:03 AM CDT 12/22/2024 8:03 AM CDT Meño Yeager MD LAB POCT ORDERABLES - DEVICE Final Result Performing Organization Address City/[facility] [place] [address] * POCT glucose (12/22/2024 1:20 AM CDT) Glucose, POC 105 70 - 199 mg/dL Blood 12/22/2024 1:20 AM CDT 12/22/2024 1:20 AM CDT us Meño Yeager MD LAB POCT ORDERABLES - DEVICE Final Result Performing Organization Address [facility] Co de Phone Number [facility] [place] [address] * (ABNORMAL) eGFR (12/21/2024 9:26 PM CDT) [...] BLOOD ORDERABLES Final Result Performing Organization Address City/[facility]/ZIP Co de Phone Number [facility] Department [place] [address] * (ABNORMAL) Protime-INR (12/21/2024 9:26 PM CDT) PT 17.8(H) 9.7 - 13.0 sec INR 1.63(H) 0.90 - 1.20 [facility] Comment: Interpretive data Oral anticoagulant therapeutic ranges: Venous thromboembolism prophylaxis or treatment: 2.0-3.0 CARDIOLOGY Standard range: 2.0-3.0 High-intensity range: 2.5-3.5 Refer to indication-specific guidelines for appropriate target ranges for prosthetic heart valve replacement. Current interpretive data was last revised on 2019. Blood 12/21/2024 9:26 PM CDT 12/21/2024 10:18 PM CDT us Meño Yeager MD LAB BLOOD ORDERABLES Final Result [facility] Department [place] [address] * (ABNORMAL) CBC without differential (12/21/2024 9:26 PM CDT) WBC 13.75(H) 3.80 - 9.90 K/cumm Hgb 8.6(L) 13.0 - 17.5 g/dL [facility] Hct 27.4(L) 38.9 - 50.3 % [facility] Plt 230 150 - 400 K/cumm [facility] MPV 9.5 9.1 - 12.3 fL [facility] RBC 2.79(L) 4.30 - 5.80 M/cumm [facility] MCV 98.2(H) 81.3 - 96.4 fL [facility] MCH 30.8 27.1 - 33.3 pg [facility] MCHC 31.4(L) 32.3 - 35.7 g/dL [facility] RDW CV 17.2(H) 11.1 - 14.9 % [facility] RDW SD 54.3(H) 35.7 - 48.1 fL [facility] NRBC abs 0.05(H) 0.00 - 0.01 K/cumm [facility] Blood 12/21/2024 9:26 PM CDT 12/21/2024 10:19 PM CDT Meño Yeager MD LAB BLOOD ORDERABLES Final Result [facility] [place] [address] * Phosphorus (12/21/2024 9:26 PM CDT) [facility] Phosphorus, pl 2.9 2.3 - 4.5 mg/dL Blood 12/21/2024 9:26 PM CDT 12/21/2024 10:19 PM CDT Meño Yeager MD LAB BLOOD ORDERABLES Final Result Performing Organization Address City/[facility] Co de Phone Number [facility] [place] [address] * Magnesium (12/21/2024 9:26 PM CDT) [facility] Magnesium 2.3 1.4 - 2.5 mg/dL Blood 12/21/2024 9:26 PM CDT 12/21/2024 10:19 PM CDT Meño Yeager MD LAB BLOOD ORDERABLES Final Result Performing Organization Address City/[facility] Co de Phone Number [facility] [place] [address] * (ABNORMAL) Basic metabolic panel (12/21/2024 9:26 PM CDT) [facility] Sodium 136 135 - 145 mmol/L Potassium, pl 4.0 3.3 - 4.9 mmol/L [facility] Chloride 104 97 - 110 mmol/L [facility] CO2 23 22 - 32 mmol/L [facility] Anion gap 9 2 - 15 mmol/L [facility] BUN 41(H) 6 - 25 mg/dL [facility] Creatinine 2.54(H) 0.80 - 1.30 mg/dL [facility] Glucose 117 70 - 199 mg/dL [facility] Comment: Interpretive Data Fasting glucose >/= [...] Calcium 7.8(L) 8.5 - 10.3 mg/dL [facility] Blood 12/21/2024 9:26 PM CDT 12/21/2024 10:19 PM CDT Radha Almonte NP LAB BLOOD ORDERABLES Final Result Performing Organization Address [facility] Co de Phone Number [facility] Department [place] [address] * POCT glucose (12/21/2024 8:46 PM CDT) Glucose, POC 144 70 - 199 mg/dL Blood 12/21/2024 8:46 PM CDT 12/21/2024 8:46 PM CDT Meño Yeager MD LAB POCT ORDERABLES - DEVICE Final Result [facility] [place] [address] * POCT glucose (12/21/2024 5:26 PM CDT) Glucose, POC 95 70 - 199 mg/dL Blood 12/21/2024 5:26 PM CDT 12/21/2024 5:26 PM CDT Meño Yeager MD LAB POCT ORDERABLES - DEVICE Final Result [facility]OD[facility]IG[facility] Department [place] [address] * POCT glucose (12/21/2024 12:20 PM CDT) Glucose, POC 149 70 - 199 mg/dL Blood 12/21/2024 12:2 0 PM CDT 12/21/2024 12:20 PM CDT us Meño Yeager MD LAB POCT ORDERABLES - DEVICE Final Result Performing Organization Address City/[facility] Co de Phone Number [facility] Department [place] [address] * XR Chest 1 Vw (12/21/2024 11:53 [...] signed by: Canelo Loza M.D. Nevaeh Israel DNP IMG XR PROCEDURES Final Result * Cell [...] on 2019. Neutrophils, fld 9 % [facility] Lymphs, fld 42 % [facility] Monocyte, fld 4 % [facility] Macrophages, fld 45 % [facility] Fluid 12/21/2024 11:1 4 AM CDT 12/21/2024 1:26 PM CDT Nevaeh Israel [facility] BODY FLUIDS AND STO OLS ORDERABLES Final Result [facility] Department [place] [address] * (ABNORMAL) Cell count w/rflx diff, body fluid (12/21/2024 11:14 AM CDT) Specimen type, fld Pleural Body site, fld Pleural fluid, right [facility] Color, fld Red [facility] Clarity, fld Cloudy(A) Clear [facility] Nucleated cells, fld 695 /cumm [facility] Comment: Interpretive Data Unless otherwise specified, the reference range and other method performance specifications have not been established for CSF/Body Fluid tests. The test results should be integrated into the clinical context for interpretation. Current interpretive data was last revised on 2019. RBC, fld 59,512 /cumm [facility] Fluid 12/21/2024 11:1 4 AM CDT 12/21/2024 1:26 PM CDT Nevaeh Israel [facility] BODY FLUIDS AND STO OLS ORDERABLES Final Result Performing Organization Address [facility] Co de Phone Number [facility] [place] [address] * Mycology (fungal) culture and stain Pleural fluid Chest, right (12/21/2024 11:14 AM CDT) Direct Specimen Exam Stain: No Fungal elements seen. Report Final Report: No growth of fungus [facility] Pleural fluid (Chest, right) 12/21/2024 11:14 AM CDT 12/21/2024 1:43 PM CDT Narrative [facility] - 01/18/2025 7:55 AM CDT Testing performed by [facility] ([phone]). Nevaeh Israel [facility] MICROBIOLOGY - GENE RAL ORDERABLES Final Result Performing Organization Address [facility] de Phone Number [facility] Department [place] [address] * Mycobacteriology (AFB) culture and acid-fast stain Pleural fluid Chest, right (12/21/2024 11:14 AM CDT) Direct Specimen Exam Stain: No Acid-fast bacilli seen Report Final Report: No growth of acid-fast bacilli [facility] Pleural fluid (Chest, right) 12/21/2024 11:14 AM CDT 12/21/2024 1:43 PM CDT Narrative [facility] - 02/20/2025 10:30 AM CDT Testing performed by [facility] ([phone]). Nevaeh Israel [facility] MICROBIOLOGY - GENE RAL ORDERABLES Final Result Performing Organization Address [facility] [place] [address] * Aerobic and anaerobic culture and gram stain Pleural fluid Chest, right (12/21/2024 11:14 AM CDT) Direct Specimen Exam Stain: Cytospin Gram stain shows: Few polymorphonuclear leukocytes seen. Other cellular material present. No organisms seen. Report Final Report: No growth [facility] Pleural fluid (Chest, right) 12/21/2024 11:14 AM CDT 12/21/2024 1:43 PM CDT Narrative [facility] - 12/27/2024 2:41 PM CDT Testing performed by [facility] ([phone]) Specimens submitted from normally sterile body sites [...] was last revised on 2019. Nevaeh Israel [facility] MICROBIOLOGY - GENE RAL ORDERABLES Final Result Performing Organization Address [facility] Co de Phone Number [facility] Department [place] [address] * Protein, body fluid (12/21/2024 11:14 AM CDT) Specimen type, fld Pleural Body site, fld Pleural fluid, right [facility] Protein, fld <2.0 g/dL [facility] Comment: Repeated and Verified The above [...] CDT 12/21/2024 1:24 PM CDT Nevaeh Israel [facility] BODY FLUIDS AND STO Broadband Voice ORDERABLES Final Result Performing Organization Address [facility] Co de Phone Number [facility] [place] [address] * Lactate dehydrogenase, body fluid (12/21/2024 11:14 AM CDT) Specimen type, fld Pleural Body site, fld Pleural fluid, right [facility] LD, fld 131 Units/L [facility] Comment: The above specimen type is [...] CDT 12/21/2024 1:24 PM CDT Nevaeh Israel [facility] BODY FLUIDS AND STO OLS ORDERABLES Final Result Performing Organization Address City/[facility]/ZIP Co de Phone Number [facility] Department [place] [address] * Glucose, body fluid (12/21/2024 11:14 AM CDT) Specimen type, fld Pleural Body site, fld Pleural fluid, right [facility] Glucose, fld 152 mg/dL [facility] Comment: The above specimen type is [...] and Management. [place] Clin J Med 2005;72:854-72. [employer] Test directory, Body Fluid Reference Intervals and/or Interpretative Information. [email or web address] Gibson DEAN et al. Pancreatic cyst fluid glucose: rapid, inexpensive, and accurate diagnosis of mucinous pancreatic cysts. Surgery 2018;163:600-5. Carlos BAJWA et al. Differential diagnosis of pancreatic cysts: A prospective study on the role of intra-cystic glucose concentration. Digestive Liver Dis 2020;52:1026-32. Current Interpretive Data was last revised 2021. Fluid 12/21/2024 11:1 4 AM CDT 12/21/2024 1:24 PM CDT Narrative [facility] - 12/21/2024 2:19 PM CDT Body Fluid Type->Pleural Nevaeh Israel [facility] BODY FLUIDS AND STO OLS ORDERABLES Final Result [facility] Department [place] [address] * Thoracentesis -Right side (12/21/2024 11:12 AM CDT) Anatomical Region Laterality Modality Other Narrative Procedure Note Nevaeh Israel DNP - 12/21/2024 11:12 AM CDT [facility] Interventional Pulmonary Patient Name: Jai To Procedure Date: 12/21/2024 11:12 AM Date of [...] Initiated On: 12/21/2024 11:12 AM us Meño Yeager MD IN CLINIC/BEDSIDE OR DERABLES Final Result [...] Electronically signed by: Earl Perez M.D. Meño Yeager MD IMG XR PROCEDURES Fi nal Result * POCT glucose (12/21/2024 8:24 AM CDT) Glucose, POC 145 70 - 199 mg/dL Blood 12/21/2024 8:24 AM CDT 12/21/2024 8:24 AM CDT Meño Yeager MD LAB POCT ORDERABLES - DEVICE Final Result [facility] [place] [address] * POCT glucose (12/21/2024 1:51 AM CDT) Glucose, POC 131 70 - 199 mg/dL Blood 12/21/2024 1:51 AM CDT 12/21/2024 1:51 AM CDT Meño Yeager MD LAB POCT ORDERABLES - DEVICE Final Result [facility] Department [place] [address] * Infection Prevention Nuvia auris PCR, surveillance Axilla/Groin (12/20/2024 9:19 PM CDT) Nuvia auris DNA Not Detected Not Detected [facility] Comment: Interpretive Data Testing performed by [facility] using the Matt marie 3dim0 Nuvia auris assay. This assay detects DNA from Nuvia auris using Real-Time PCR. This assay is laboratory developed and is not cleared by the [place] Food and Drug Administration. The performance characteristics have been verified by the [facility]. Axilla/Groin 12/20/2024 9:19 PM CDT 12/20/2024 11:00 PM CD[address]ative [facility] - 12/21/2024 12:31 PM CDT Order placed by [facility] due to ring surveillance. us Meño Yeager MD LAB MICROBIOLOGY - G ENERAL ORDERABLES Final Result Performing Organization Address City/[facility] Co de Phone Number [facility] Department [place] [address] [facility] * (ABNORMAL) eGFR (12/20/2024 9:19 PM CDT) eGFR 35(L) >=60 mL/min/1. 73 [...] CDT 12/20/2024 10:56 PM CDT us Meño Yeager MD LAB BLOOD ORDERABLES Final Result [facility] Department [place] [address] * (ABNORMAL) Differential, auto (12/20/2024 9:19 PM CDT) Neutrophil abs 9.80(H) 1.50 - 6.50 K/cumm Imm gran abs 0.10 0.00 - 0.10 K/cumm [facility] Lymphocyte abs 2.17 0.80 - 3.30 K/cumm [facility] Monocyte abs 1.35(H) 0.20 - 0.80 K/cumm [facility] Eosinophil abs 0.08 0.00 - 0.50 K/cumm [facility] Basophil abs 0.04 0.00 - 0.10 K/cumm [facility] Neutrophil pct 72.4 % [facility] Comment: Interpretive Data Percent cell count reference ranges are not reported, since discordance with absolute values may lead to misinterpretation of CBC data. Current Interpretive Data was last revised on 2017. Imm gran pct 0.7 % [facility] Comment: Interpretive Data Percent cell count reference ranges are not reported, since discordance with absolute values may lead to misinterpretation of CBC data. Current Interpretive Data was last revised on 2017. Lymphocyte pct 16.0 % [facility] Comment: Interpretive Data Percent cell count reference ranges are not reported, since discordance with absolute values may lead to misinterpretation of CBC data. Current Interpretive Data was last revised on 2017. Monocyte pct 10.0 % [facility] Comment: Interpretive Data Percent cell count reference ranges are not reported, since discordance with absolute values may lead to misinterpretation of CBC data. Current Interpretive Data was last revised on 2017. Eosinophil pct 0.6 % [facility] Comment: Interpretive Data Percent cell count reference ranges are not reported, since discordance with absolute values may lead to misinterpretation of CBC data. Current Interpretive Data was last revised on 2017. Basophil pct 0.3 % [facility] Comment: Interpretive Data Percent cell count reference ranges are not reported, since discordance with absolute values may lead to misinterpretation of CBC data. Current Interpretive Data was last revised on 2017. Blood 12/20/2024 9:19 PM CDT 12/20/2024 10:56 PM CDT Meño Yeager MD LAB BLOOD ORDERABLES Final Result [facility] Department [place] [address] * (ABNORMAL) CBC with auto differential (12/20/2024 9:19 PM CDT) WBC 13.54(H) 3.80 - 9.90 K/cumm Hgb 9.0(L) 13.0 - 17.5 g/dL [facility] Hct 27.9(L) 38.9 - 50.3 % [facility] Plt 252 150 - 400 K/cumm [facility] MPV 10.1 9.1 - 12.3 fL [facility] RBC 2.86(L) 4.30 - 5.80 M/cumm [facility] MCV 97.6(H) 81.3 - 96.4 fL [facility] MCH 31.5 27.1 - 33.3 pg [facility] MCHC 32.3 32.3 - 35.7 g/dL [facility] RDW CV 16.3(H) 11.1 - 14.9 % [facility] RDW SD 53.9(H) 35.7 - 48.1 fL [facility] NRBC abs 0.00 0.00 - 0.01 K/cumm [facility] Blood 12/20/2024 9:19 PM CDT 12/20/2024 10:56 PM CDT Meño Yeager MD LAB BLOOD ORDERABLES Final Result Performing Organization Address [facility] de Phone Number [facility] Department [place] [address] * (ABNORMAL) aPTT (12/20/2024 9:19 PM CDT) aPTT 27(L) 28 - 38 sec Comment: Interpretive Data Heparin therapeutic range: 66.0 - 100.0 seconds. Range based on correlation with therapeutic heparin activity range of 0.3 - 0.7 Units/mL. Current interpretive data was last revised on 2023. Blood 12/20/2024 9:19 PM CDT 12/20/2024 11:00 PM CDT Meño Yeager MD LAB BLOOD ORDERABLES Final Result Performing Organization Address [facility] de Phone Number [facility] Department [place] [address] * (ABNORMAL) Protime-INR (12/20/2024 9:19 PM CDT) PT 17.6(H) 9.7 - 13.0 sec INR 1.61(H) 0.90 - 1.20 [facility] Comment: Interpretive data Oral anticoagulant therapeutic ranges: Venous thromboembolism prophylaxis or treatment: 2.0-3.0 CARDIOLOGY Standard range: 2.0-3.0 High-intensity range: 2.5-3.5 Refer to indication-specific guidelines for appropriate target ranges for prosthetic heart valve replacement. Current interpretive data was last revised on 2019. Blood 12/20/2024 9:19 PM CDT 12/20/2024 11:00 PM CDT Meño Yeager MD LAB BLOOD ORDERABLES Final Result Performing Organization Address [facility] Co de Phone Number [facility] [place] [address] * (ABNORMAL) Phosphorus (12/20/2024 9:19 PM CDT) [facility] Phosphorus, pl 2.2(L) 2.3 - 4.5 mg/dL Blood 12/20/2024 9:19 PM CDT 12/20/2024 10:56 PM CDT Meño Yeager MD LAB BLOOD ORDERABLES Final Result Performing Organization Address [facility] Co de Phone Number [facility] Department [place] [address] * Magnesium (12/20/2024 9:19 PM CDT) [facility] Magnesium 2.5 1.4 - 2.5 mg/dL Blood 12/20/2024 9:19 PM CDT 12/20/2024 10:56 PM CDT Meño Yeager MD LAB BLOOD ORDERABLES Final Result Performing Organization Address [facility] [place] [address] * (ABNORMAL) Comprehensive metabolic panel (12/20/2024 9:19 PM CDT) [facility] Sodium 135 135 - 145 mmol/L Potassium, pl 4.6 3.3 - 4.9 mmol/L [facility] Chloride 103 97 - 110 mmol/L [facility] CO2 22 22 - 32 mmol/L [facility] Anion gap 10 2 - 15 mmol/L [facility] BUN 35(H) 6 - 25 mg/dL [facility] Creatinine 1.95(H) 0.80 - 1.30 mg/dL [facility] Glucose 169 70 - 199 mg/dL [facility] Comment: Interpretive Data Fasting glucose >/= [...] Calcium 8.4(L) 8.5 - 10.3 mg/dL [facility] Bilirubin, total 0.3 0.1 - 1.2 mg/dL [facility] Protein, pl 6.3(L) 6.5 - 8.5 g/dL [facility] Albumin 3.2(L) 3.5 - 5.0 g/dL [facility] Alk phos 113 40 - 130 Units/L [facility] ALT 78(H) 7 - 55 Units/L [facility] AST 27 10 - 50 Units/L [facility] Blood 12/20/2024 9:19 PM CDT 12/20/2024 10:56 PM CDT us Meño Yeager MD LAB BLOOD ORDERABLES Final Result [facility] Department [place] [address] * (ABNORMAL) POCT glucose (12/20/2024 7:46 PM CDT) [facility] Signature Glucose, POC 210(H) 70 - 199 mg/dL Blood 12/20/2024 7:46 PM CDT 12/20/2024 7:46 PM CDT us Meño Yeager MD LAB POCT ORDERABLES - DEVICE Final Result Performing Organization Address [facility] Co de Phone Number [facility] [place] [address] * (ABNORMAL) POCT glucose (12/20/2024 5:40 PM CDT) Glucose, POC 218(H) 70 - 199 mg/dL Blood 12/20/2024 5:40 PM CDT 12/20/2024 5:40 PM CDT Meño Yeager MD LAB POCT ORDERABLES - DEVICE Final Result Performing Organization Address [facility] Co de Phone Number [facility] [place] [address] * (ABNORMAL) POCT glucose (12/20/2024 11:37 AM CDT) Glucose, POC 307(H) 70 - 199 mg/dL Blood 12/20/2024 11:3 7 AM CDT 12/20/2024 11:37 AM CDT Meño Yeager MD LAB POCT ORDERABLES - DEVICE Final Result Performing Organization Address [facility] Co de Phone Number [facility] [place] [address] * XR Chest PA Lateral 2 Views [...] signed by: Grace De Jesus M.D. Meño Yeager MD IMG XR PROCEDURES Fi nal Result [...] signed by: Grace De Jesus M.D. Meño Yeager MD IMG XR PROCEDURES Fi nal Result * POCT glucose (12/20/2024 2:18 AM CDT) [facility] Glucose, POC 148 70 - 199 mg/dL Blood 12/20/2024 2:18 AM CDT 12/20/2024 2:18 AM CDT Meño Yeager MD LAB POCT ORDERABLES - DEVICE Final Result [facility] Department [place] [address] * (ABNORMAL) eGFR (12/19/2024 9:50 PM CDT) [facility] eGFR 39(L) >=60 mL/min/1. 73 m2 Comment: [...] PM CDT 12/19/2024 11:39 PM CDT Meño Yeager MD LAB BLOOD ORDERABLES Final Result Performing Organization Address City/[facility] de Phone Number [facility] Department [place] [address] * (ABNORMAL) Protime-INR (12/19/2024 9:50 PM CDT) PT 16.7(H) 9.7 - 13.0 sec INR 1.53(H) 0.90 - 1.20 [facility] Comment: Interpretive data Oral anticoagulant therapeutic ranges: Venous thromboembolism prophylaxis or treatment: 2.0-3.0 CARDIOLOGY Standard range: 2.0-3.0 High-intensity range: 2.5-3.5 Refer to indication-specific guidelines for appropriate target ranges for prosthetic heart valve replacement. Current interpretive data was last revised on 2019. Blood 12/19/2024 9:50 PM CDT 12/19/2024 11:45 PM CDT Meño Yeager MD LAB BLOOD ORDERABLES Final Result Performing Organization Address [facility] Co de Phone Number [facility] Department [place] [address] * (ABNORMAL) CBC without differential (12/19/2024 9:50 PM CDT) [facility] WBC 11.74(H) 3.80 - 9.90 K/cumm Hgb 9.3(L) 13.0 - 17.5 g/dL [facility] Hct 29.1(L) 38.9 - 50.3 % [facility] Plt 279 150 - 400 K/cumm [facility] MPV 9.9 9.1 - 12.3 fL [facility] RBC 3.05(L) 4.30 - 5.80 M/cumm [facility] MCV 95.4 81.3 - 96.4 fL [facility] MCH 30.5 27.1 - 33.3 pg [facility] MCHC 32.0(L) 32.3 - 35.7 g/dL [facility] RDW CV 16.2(H) 11.1 - 14.9 % [facility] RDW SD 54.0(H) 35.7 - 48.1 fL [facility] NRBC abs 0.00 0.00 - 0.01 K/cumm [facility] Blood 12/19/2024 9:50 PM CDT 12/19/2024 11:37 PM CDT us Meño Yeager MD LAB BLOOD ORDERABLES Final Result [facility] Department [place] [address] * Type and screen (12/19/2024 9:50 PM CDT) [facility] Terry, indirect Negative ABO Rh A Positive [facility] Blood 12/19/2024 9:50 PM CDT 12/19/2024 11:35 PM CDT Narrative [facility] - 12/20/2024 12:32 AM CDT Has the patient had Daratumumab or Isatuximab in the past 6 months?->Unknown Meño Yeager MD LAB BLOOD BANK TEST ORDERABLES Final Result [facility] [place] [address] * Phosphorus (12/19/2024 9:50 PM CDT) [facility] Phosphorus, pl 2.3 2.3 - 4.5 mg/dL Blood 12/19/2024 9:50 PM CDT 12/19/2024 11:39 PM CDT Meño Yeager MD LAB BLOOD ORDERABLES Final Result Performing Organization Address [facility] Co de Phone Number [facility] [place] [address] * Magnesium (12/19/2024 9:50 PM CDT) [facility] Magnesium 2.4 1.4 - 2.5 mg/dL Blood 12/19/2024 9:50 PM CDT 12/19/2024 11:39 PM CDT Meño Yeager MD LAB BLOOD ORDERABLES Final Result Performing Organization Address City/[facility] Co de Phone Number [facility] [place] [address] * (ABNORMAL) Basic metabolic panel (12/19/2024 9:50 PM CDT) [facility] Sodium 136 135 - 145 mmol/L Potassium, pl 4.6 3.3 - 4.9 mmol/L [facility] Chloride 105 97 - 110 mmol/L [facility] CO2 22 22 - 32 mmol/L [facility] Anion gap 9 2 - 15 mmol/L [facility] BUN 30(H) 6 - 25 mg/dL [facility] Creatinine 1.77(H) 0.80 - 1.30 mg/dL [facility] Glucose 198 70 - 199 mg/dL [facility] Comment: Interpretive Data Fasting glucose >/= [...] Calcium 7.9(L) 8.5 - 10.3 mg/dL [facility] Blood 12/19/2024 9:50 PM CDT 12/19/2024 11:39 PM CDT Meño Yeager MD LAB BLOOD ORDERABLES Final Result Performing Organization Address City/[facility]/ZIP Co de Phone Number [facility] Department [place] [address] * (ABNORMAL) POCT glucose (12/19/2024 8:32 PM CDT) Glucose, POC 303(H) 70 - 199 mg/dL Blood 12/19/2024 8:32 PM CDT 12/19/2024 8:32 PM CDT Meño Yeager MD LAB POCT ORDERABLES - DEVICE Final Result [facility] Department [place] [address] * POCT glucose (12/19/2024 6:05 PM CDT) Glucose, POC 181 70 - 199 mg/dL Blood 12/19/2024 6:05 PM CDT 12/19/2024 6:05 PM CDT us Meño Yeager MD LAB POCT ORDERABLES - DEVICE Final Result [facility] Department [place] [address] * XR Chest 1 View (12/19/2024 2:13 [...] and agrees with it. Electronically signed by: Igro Giraldo M.D. Meño Yeager MD IMG XR PROCEDURES Fi nal Result * (ABNORMAL) POCT glucose (12/19/2024 1:50 PM CDT) Glucose, POC 202(H) 70 - 199 mg/dL Blood 12/19/2024 1:50 PM CDT 12/19/2024 1:50 PM CDT us Meño Yeager MD LAB POCT ORDERABLES - DEVICE Final Result Performing Organization Address City/State/[facility] Co de Phone Number [facility] Department [place] [address] * Critical Care (12/19/2024 1:38 PM CDT) Narrative Ronnie Rojas MD - 12/19/2024 1:38 PM CDT Ronnie [...] plan with the ICU team and other medical/consultant technology staff, making frequent assessments and decisions regarding [...] from bedside monitors, laboratory results, and imaging us Ronnie Rojas MD IN CLINIC/BEDSIDE ORDERABL [...] it. Electronically signed by: Yuriy Page M.D. us Meño Yeager MD IMG XR PROCEDURES Fi nal Result * (ABNORMAL) POCT glucose (12/19/2024 12:00 PM CDT) Glucose, POC 204(H) 70 - 199 mg/dL Blood 12/19/2024 12:0 0 PM CDT 12/19/2024 12:00 PM CDT Meño Yeager MD LAB POCT ORDERABLES - DEVICE Final Result [facility] Department [place] [address] * IMPLANT DUAL CHAMBER PPM SYSTEM W/ DUAL ELECTRODES (GEN AND LEADS, NEW OR REPLACE) (12/19/2024 11:34 AM CDT) Anatomical Region Laterality Modality X-Ray Angiograph y Narrative 12/21/2024 3:27 AM CDT Patient Name: Jai To Date of : 1945 Primary Physician: @PCP@ [...] recorded. Images were taken in ANGULO and YORUBA views to ensure appropriate lead placement. The [...] device programming: - RA Lead (#[id number] S/N [id number]): Sensing 0.6 mV, Pacing threshold 2.5 V at 0.4 ms, Imp 551 Ohm - RV Lead (#5076 S/N [id number]): Sensing 11.5 mV, Pacing threshold 1.25 V at 0.4 ms, Imp 1121 Ohm - Device: pacemaker (#[id number] S/N [id number]), programmed AAI-DDD 60-130BPM Conclusions: 1. Successful placement [...] days post-discharge Arthur Mcleod MD Clinical Cardiac Transplant Immunologist Meño Yeager MD CV ELECTROPHYSIOLOGY PROCS Final Result * POCT glucose (12/19/2024 9:02 AM CDT) Glucose, POC 163 70 - 199 mg/dL Blood 12/19/2024 9:02 AM CDT 12/19/2024 9:02 AM CDT Meño Yeager MD LAB POCT ORDERABLES - DEVICE Final Result Performing Organization Address [facility]/ZIP Co de Phone Number [facility] [place] [address] * POCT glucose (12/19/2024 6:28 AM CDT) Glucose, POC 152 70 - 199 mg/dL Blood 12/19/2024 6:28 AM CDT 12/19/2024 6:28 AM CDT Meño Yeager MD LAB POCT ORDERABLES - DEVICE Final Result [facility] [place] [address] * POCT glucose (12/19/2024 12:50 AM CDT) Glucose, POC 139 70 - 199 mg/dL Blood 12/19/2024 12:5 0 AM CDT 12/19/2024 12:50 AM CDT Meño Yeager MD LAB POCT ORDERABLES - DEVICE Final Result Performing Organization Address [facility] Co de Phone Number [facility] [place] [address] * POCT glucose (12/18/2024 9:13 PM CDT) Glucose, POC 139 70 - 199 mg/dL Blood 12/18/2024 9:13 PM CDT 12/18/2024 9:13 PM CDT Meño Yeager MD LAB POCT ORDERABLES - DEVICE Final Result Performing Organization Address [facility] de Phone Number [facility] [place] [address] * Potassium, whole blood (12/18/2024 8:59 PM CDT) Potassium, bld 4.3 3.3 - 4.9 mmol/L Blood 12/18/2024 8:59 PM CDT 12/18/2024 9:21 PM CDT Result [facility] Meño Yeager MD LAB BLOOD ORDERABLES Final Result Performing Organization Address [facility] de Phone Number [facility] [place] [address] * (ABNORMAL) eGFR (12/18/2024 8:59 PM CDT) eGFR 36(L) >=60 mL/min/1. 73 [...] PM CDT 12/18/2024 9:38 PM CDT Meño Yeager MD LAB BLOOD ORDERABLES Final Result Performing Organization Address [facility] de Phone Number [facility] [place] [address] * (ABNORMAL) Protime-INR (12/18/2024 8:59 PM CDT) PT 16.1(H) 9.7 - 13.0 sec INR 1.48(H) 0.90 - 1.20 [facility] Comment: Interpretive data Oral anticoagulant therapeutic ranges: Venous thromboembolism prophylaxis or treatment: 2.0-3.0 CARDIOLOGY Standard range: 2.0-3.0 High-intensity range: 2.5-3.5 Refer to indication-specific guidelines for appropriate target ranges for prosthetic heart valve replacement. Current interpretive data was last revised on 2019. Blood 12/18/2024 8:59 PM CDT 12/18/2024 9:49 PM CDT Meño Yeager MD LAB BLOOD ORDERABLES Final Result Performing Organization Address [facility] de Phone Number [facility] [place] [address] * (ABNORMAL) CBC without differential (12/18/2024 8:59 PM CDT) WBC 9.06 3.80 - 9.90 K/cumm Hgb 12.0(L) 13.0 - 17.5 g/dL [facility] Hct 36.5(L) 38.9 - 50.3 % [facility] Plt 285 150 - 400 K/cumm [facility] MPV 9.2 9.1 - 12.3 fL [facility] RBC 3.88(L) 4.30 - 5.80 M/cumm [facility] MCV 94.1 81.3 - 96.4 fL [facility] MCH 30.9 27.1 - 33.3 pg [facility] MCHC 32.9 32.3 - 35.7 g/dL [facility] RDW CV 15.9(H) 11.1 - 14.9 % [facility] RDW SD 52.3(H) 35.7 - 48.1 fL [facility] NRBC abs 0.00 0.00 - 0.01 K/cumm [facility] Blood 12/18/2024 8:59 PM CDT 12/18/2024 9:28 PM CDT Meño Yeager MD LAB BLOOD ORDERABLES Final Result [facility] Department [place] [address] * Phosphorus (12/18/2024 8:59 PM CDT) [facility] Phosphorus, pl 2.6 2.3 - 4.5 mg/dL Blood 12/18/2024 8:59 PM CDT 12/18/2024 9:31 PM CDT Meño Yeager MD LAB BLOOD ORDERABLES Final Result [facility] Department [place] [address] * (ABNORMAL) Magnesium (12/18/2024 8:59 PM CDT) Magnesium 2.7(H) 1.4 - 2.5 mg/dL Blood 12/18/2024 8:59 PM CDT 12/18/2024 9:31 PM CDT Meoñ Yeager MD LAB BLOOD ORDERABLES Final Result [facility] Department [place] [address] * (ABNORMAL) Basic metabolic panel (12/18/2024 8:59 PM CDT) Pathologist [facility] Sodium 137 135 - 145 mmol/L Potassium, pl 4.6 3.3 - 4.9 mmol/L [facility] Chloride 103 97 - 110 mmol/L [facility] CO2 26 22 - 32 mmol/L [facility] Anion gap 8 2 - 15 mmol/L [facility] BUN 33(H) 6 - 25 mg/dL [facility] Creatinine 1.89(H) 0.80 - 1.30 mg/dL [facility] Glucose 138 70 - 199 mg/dL [facility] Comment: Interpretive Data Fasting glucose >/= [...] Calcium 8.4(L) 8.5 - 10.3 mg/dL [facility] Blood 12/18/2024 8:59 PM CDT 12/18/2024 9:31 PM CDT us Meño Yeager MD LAB BLOOD ORDERABLES Final Result Performing Organization Address City/[facility]/ZIP Co de Phone Number [facility] Department [place] [address] * POCT glucose (12/18/2024 5:50 PM CDT) Glucose, POC 160 70 - 199 mg/dL Blood 12/18/2024 5:50 PM CDT 12/18/2024 5:50 PM CDT us Meño Yeager MD LAB POCT ORDERABLES - DEVICE Final Result [facility] Department [place] [address] * Critical Care (12/18/2024 1:34 PM CDT) [...] plan with the ICU team and other medical/consultant technology staff, making frequent assessments and decisions regarding [...] CDT 12/18/2024 11:15 AM CDT us Meño Yeager MD LAB POCT ORDERABLES - DEVICE Final Result [facility] Department [place] [address] * XR Chest 1 View (12/18/2024 8:30 [...] Electronically signed by: Yuriy Page M.D. Meño Yeager MD IMG XR PROCEDURES Fi nal Result * POCT glucose (12/18/2024 8:19 AM CDT) Glucose, POC 196 70 - 199 mg/dL Blood 12/18/2024 8:19 AM CDT 12/18/2024 8:19 AM CDT Meño Yeager MD LAB POCT ORDERABLES - DEVICE Final Result Performing Organization Address City/[facility] Co de Phone Number [facility] [place] [address] * (ABNORMAL) POCT glucose (12/18/2024 1:18 AM CDT) Glucose, POC 214(H) 70 - 199 mg/dL Blood 12/18/2024 1:18 AM CDT 12/18/2024 1:18 AM CDT Meño Yeager MD LAB POCT ORDERABLES - DEVICE Final Result Performing Organization Address City/[facility] Co de Phone Number [facility] [place] [address] * Potassium, whole blood (12/17/2024 8:43 PM CDT) Potassium, bld 4.7 3.3 - 4.9 mmol/L Blood 12/17/2024 8:43 PM CDT 12/17/2024 8:46 PM CDT Meño Yeager MD LAB BLOOD ORDERABLES Final Result Performing Organization Address City/[facility]/ZIP Co de Phone Number [facility] [place] [address] * (ABNORMAL) eGFR (12/17/2024 8:43 PM CDT) [...] PM CDT 12/17/2024 9:03 PM CDT Meño Yeager MD LAB BLOOD ORDERABLES Final Result [facility] Department [place] [address] * (ABNORMAL) Protime-INR (12/17/2024 8:43 PM CDT) PT 15.6(H) 9.7 - 13.0 sec INR 1.43(H) 0.90 - 1.[address] [facility] Comment: Interpretive data Oral anticoagulant therapeutic ranges: Venous thromboembolism prophylaxis or treatment: 2.0-3.0 CARDIOLOGY Standard range: 2.0-3.0 High-intensity range: 2.5-3.5 Refer to indication-specific guidelines for appropriate target ranges for prosthetic heart valve replacement. Current interpretive data was last revised on 2019. Blood 12/17/2024 8:43 PM CDT 12/17/2024 8:55 PM CDT Meño Yeager MD LAB BLOOD ORDERABLES Final Result Performing Organization Address [facility] Co de Phone Number [facility] Department [place] [address] * (ABNORMAL) CBC without differential (12/17/2024 8:43 PM CDT) Pathologist [facility] WBC 11.34(H) 3.80 - 9.90 K/cumm Hgb 9.1(L) 13.0 - 17.5 g/dL [facility] Hct 28.3(L) 38.9 - 50.3 % [facility] Plt 371 150 - 400 K/cumm [facility] MPV 9.0(L) 9.1 - 12.3 fL [facility] RBC 3.02(L) 4.30 - 5.80 M/cumm [facility] MCV 93.7 81.3 - 96.4 fL [facility] MCH 30.1 27.1 - 33.3 pg [facility] MCHC 32.2(L) 32.3 - 35.7 g/dL [facility] RDW CV 15.7(H) 11.1 - 14.9 % [facility] RDW SD 51.3(H) 35.7 - 48.1 fL [facility] NRBC abs 0.00 0.00 - 0.01 K/cumm [facility] Blood 12/17/2024 8:43 PM CDT 12/17/2024 8:54 PM CDT Meño Yeager MD LAB BLOOD ORDERABLES Final Result [facility] Department [place] [address] * Phosphorus (12/17/2024 8:43 PM CDT) Phosphorus, pl 2.8 2.3 - 4.5 mg/dL Blood 12/17/2024 8:43 PM CDT 12/17/2024 8:52 PM CDT Meño Yeager MD LAB BLOOD ORDERABLES Final Result Performing Organization Address City/[facility]/ZIP Co de Phone Number [facility] [place] [address] * (ABNORMAL) Magnesium (12/17/2024 8:43 PM CDT) [facility] Magnesium 2.9(H) 1.4 - 2.5 mg/dL Blood 12/17/2024 8:43 PM CDT 12/17/2024 8:52 PM CDT Meño Yeager MD LAB BLOOD ORDERABLES Final Result Performing Organization Address [facility] de Phone Number [facility] [place] [address] * (ABNORMAL) Basic metabolic panel (12/17/2024 8:43 PM CDT) [facility] Sodium 138 135 - 145 mmol/L Potassium, pl 4.8 3.3 - 4.9 mmol/L [facility] Chloride 104 97 - 110 mmol/L [facility] CO2 27 22 - 32 mmol/L [facility] Anion gap 7 2 - 15 mmol/L [facility] BUN 40(H) 6 - 25 mg/dL [facility] Creatinine 2.04(H) 0.80 - 1.30 mg/dL [facility] Glucose 124 70 - 199 mg/dL [facility] Comment: Interpretive Data Fasting glucose >/= [...] Calcium 8.7 8.5 - 10.3 mg/dL [facility] Blood 12/17/2024 8:43 PM CDT 12/17/2024 8:52 PM CDT Meño eYager MD LAB BLOOD ORDERABLES Final Result [facility] [place] [address] * POCT glucose (12/17/2024 8:41 PM CDT) Glucose, POC 130 70 - 199 mg/dL Blood 12/17/2024 8:41 PM CDT 12/17/2024 8:41 PM CDT Meño Yeager MD LAB POCT ORDERABLES - DEVICE Final Result Performing Organization Address City/[facility]/ZIP Co de Phone Number [facility] [place] [address] * POCT glucose (12/17/2024 5:41 PM CDT) Glucose, POC 175 70 - 199 mg/dL Blood 12/17/2024 5:41 PM CDT 12/17/2024 5:41 PM CDT Meño Yeager MD LAB POCT ORDERABLES - DEVICE Final Result Performing Organization Address City/[facility]/ZIP Co de Phone Number [facility] [place] [address] * Critical Care (12/17/2024 1:17 PM CDT) [...] plan with the ICU team and other medical/consultant technology staff, making frequent assessments and decisions regarding [...] time documenting in the medical record us Ronnie Rojas MD IN CLINIC/BEDSIDE ORDERABL ES Final Result * (ABNORMAL) POCT glucose (12/17/2024 12:27 PM CDT) Glucose, POC 296(H) 70 - 199 mg/dL Blood 12/17/2024 12:2 7 PM CDT 12/17/2024 12:27 PM CDT us Meño Yeager MD LAB POCT ORDERABLES - DEVICE Final Result [facility] Department [place] [address] * (ABNORMAL) Potassium, whole blood (12/17/2024 12:21 PM CDT) Potassium, bld 5.3(H) 3.3 - 4.9 mmol/L Blood 12/17/2024 12:2 1 PM CDT 12/17/2024 12:27 PM CDT Meño Yeager MD LAB BLOOD ORDERABLES Final Result [facility] [place] [address] * Critical Result Callback Chemistry (12/17/2024 12:21 PM CDT) Date Notified [id number] Time Notified [address] [facility] TestName pO2 Art, O2 Sat Art (Jose) [facility] Called/Read Back Danuta MUÑOZ [facility] Credentials RN [facility] Called By TP [facility] Blood 12/17/2024 12:2 1 PM CDT 12/17/2024 12:27 PM CDT Result [facility] Meño Yeager MD LAB BLOOD ORDERABLES Final Result Performing Organization Address City/[facility]/[place] [address] * (ABNORMAL) POCT glucose (12/17/2024 12:21 PM CDT) Glucose, POC 300(H) 70 - 199 mg/dL Blood 12/17/2024 12:2 1 PM CDT 12/17/2024 12:21 PM CDT Meño Yeager MD LAB POCT ORDERABLES - [place] [address] * Blood gas, arterial (12/17/2024 12:21 PM CDT) pH, Art See Comment 7.35 - 7.45 Comment: Credited, collection error. Credited at the request of Danuta LYONS) on 12/17/2024 13:21:51 CDT by MMR/TRANSIT PLANNING MANAGER PCO2, Arterial See Comment 35 - 45 [facility] Comment: Credited, collection error. Credited at the request of Danuta LYONS) on 12/17/2024 13:21:51 CDT by MMR/TRANSIT PLANNING MANAGER PO2, Arterial See Comment 83 - 108 [facility] Comment: Credited, collection error. Credited at the request of Danuta Hartman (VILMA) on 12/17/2024 13:21:51 CDT by MMR/TRANSIT PLANNING MANAGER HCO3 Art (Calculated) See Comment 20 - [address] [facility] Comment: Credited, collection error. Credited at the request of Danuta LYONS) on 12/17/2024 13:21:51 CDT by MMR/TRANSIT PLANNING MANAGER BE, art See Comment [facility] Comment: Credited, collection error. Credited at the request of Danuta LYONS) on 12/17/2024 13:21:51 CDT by MMR/TRANSIT PLANNING MANAGER Interpretive Data No Reference Range Established Current Interpretive Data was last revised on 2017 O2 Sat Art (Measured) See Comment 90 - 95 [facility] Comment: Credited, collection error. Credited at the request of Danuta LYONS) on 12/17/2024 13:21:51 CDT by MMR/TRANSIT PLANNING MANAGER Blood 12/17/2024 12:2 1 PM CDT 12/17/2024 12:27 PM CDT us Meño Yeager MD LAB BLOOD ORDERABLES Edited Result - Final [facility] Department [place] [address] * (ABNORMAL) POCT glucose (12/17/2024 12:18 PM CDT) Glucose, POC 293(H) 70 - 199 mg/dL Blood 12/17/2024 12:1 8 PM CDT 12/17/2024 12:18 PM CDT us Meño Yeager MD LAB POCT ORDERABLES - DEVICE Final Result [facility] [place] [address] * (ABNORMAL) eGFR (12/17/2024 12:17 PM CDT) [...] Pastor MD LAB BLOOD ORDERABLES Final Result [facility] [place] [address] * (ABNORMAL) Thyroid Function [place] (12/17/2024 12:17 PM CDT) TSH 4.96(H) 0.30 - 4.20 mcIUnit/mL Blood 12/17/2024 12:1 7 PM CDT 12/17/2024 12:39 PM CDT Meño Yeager MD LAB BLOOD ORDERABLES Final Result Performing Organization Address [facility] de Phone Number [facility] [place] [address] * T4, free (12/17/2024 12:17 PM CDT) Free T4 1.19 0.90 - 1.70 ng/dL Blood 12/17/2024 12:1 7 PM CDT 12/17/2024 12:39 PM CDT Meño Yeager MD LAB BLOOD ORDERABLES Final Result Performing Organization Address [facility] de Phone Number [facility] [place] [address] * Phosphorus (12/17/2024 12:17 PM CDT) Phosphorus, pl 2.7 2.3 - 4.5 mg/dL Blood 12/17/2024 12:1 7 PM CDT 12/17/2024 12:39 PM CDT Result [facility] Scar Pastor MD LAB BLOOD ORDERABLES Final Result Performing Organization Address [facility] de Phone Number [facility] [place] [address] * (ABNORMAL) Magnesium (12/17/2024 12:17 PM CDT) Magnesium 2.9(H) 1.4 - 2.5 mg/dL Blood 12/17/2024 12:1 7 PM CDT 12/17/2024 12:39 PM CDT us Scar Pastor MD LAB BLOOD ORDERABLES Final Result Performing Organization Address City/[facility]/ZIP Co de Phone Number [facility] Department [place] [address] * (ABNORMAL) Basic metabolic panel (12/17/2024 12:17 PM CDT) Sodium 134(L) 135 - 145 mmol/L Potassium, pl 5.4(H) 3.3 - 4.9 mmol/L [facility] Chloride 101 97 - 110 mmol/L [facility] CO2 22 22 - 32 mmol/L [facility] Anion gap 11 2 - 15 mmol/L [facility] BUN 41(H) 6 - 25 mg/dL [facility] Creatinine 1.97(H) 0.80 - 1.30 mg/dL [facility] Glucose 295(H) 70 - 199 mg/dL [facility] Comment: Interpretive Data Fasting glucose >/= [...] 2022. Calcium 8.5 8.5 - 10.3 mg/dL [facility] Blood 12/17/2024 12:1 7 PM CDT 12/17/2024 12:39 PM CDT Scar Pastor MD LAB BLOOD ORDERABLES Final Result Performing Organization Address [facility] Co de Phone Number [facility] Department [place] [address] * XR Chest 1 View (12/17/2024 11:50 [...] Electronically signed by: Lucretia Le M.D. Meño Yeager MD IMG XR PROCEDURES Fi nal Result * POCT glucose (12/17/2024 7:53 AM CDT) Glucose, POC 132 70 - 199 mg/dL Blood 12/17/2024 7:53 AM CDT 12/17/2024 7:53 AM CDT us Meño Yeager MD LAB POCT ORDERABLES - DEVICE Final Result [facility] [place] [address] * POCT glucose (12/17/2024 2:57 AM CDT) Glucose, POC 155 70 - 199 mg/dL Blood 12/17/2024 2:57 AM CDT 12/17/2024 2:57 AM CDT Meño Yeager MD LAB POCT ORDERABLES - DEVICE Final Result [facility] [place] [address] * POCT glucose (12/16/2024 9:10 PM CDT) Glucose, POC 179 70 - 199 mg/dL Blood 12/16/2024 9:10 PM CDT 12/16/2024 9:10 PM CDT Meño Yeager MD LAB POCT ORDERABLES - DEVICE Final Result Performing Organization Address [facility] Co de Phone Number [facility] Department [place] [address] * (ABNORMAL) eGFR (12/16/2024 9:00 PM CDT) [...] 9:00 PM CDT 12/16/2024 9:31 PM CDT Meño Yeager MD LAB BLOOD ORDERABLES Final Result Performing Organization Address [facility]/State/ZIP Co de Phone Number [facility] [place] [address] * (ABNORMAL) Protime-INR (12/16/2024 9:00 PM CDT) Pathologist [facility] PT 15.6(H) 9.7 - 13.0 sec INR 1.43(H) 0.90 - 1.20 [facility] Comment: Interpretive data Oral anticoagulant therapeutic ranges: Venous thromboembolism prophylaxis or treatment: 2.0-3.0 CARDIOLOGY Standard range: 2.0-3.0 High-intensity range: 2.5-3.5 Refer to indication-specific guidelines for appropriate target ranges for prosthetic heart valve replacement. Current interpretive data was last revised on 2019. Blood 12/16/2024 9:00 PM CDT 12/16/2024 9:33 PM CDT Meño Yeager MD LAB BLOOD ORDERABLES Final Result Performing Organization Address City/[facility]/ZIP Co de Phone Number [facility] [place] [address] * (ABNORMAL) CBC without differential (12/16/2024 9:00 PM CDT) Pathologist [facility] WBC 10.71(H) 3.80 - 9.90 K/cumm Hgb 9.0(L) 13.0 - 17.5 g/dL [facility] Hct 28.5(L) 38.9 - 50.3 % [facility] Plt 381 150 - 400 K/cumm [facility] MPV 9.0(L) 9.1 - 12.3 fL [facility] RBC 2.97(L) 4.30 - 5.80 M/cumm [facility] MCV 96.0 81.3 - 96.4 fL [facility] MCH 30.3 27.1 - 33.3 pg [facility] MCHC 31.6(L) 32.3 - 35.7 g/dL [facility] RDW CV 15.7(H) 11.1 - 14.9 % [facility] RDW SD 53.0(H) 35.7 - 48.1 fL [facility] NRBC abs 0.00 0.00 - 0.01 K/cumm [facility] Blood 12/16/2024 9:00 PM CDT 12/16/2024 9:30 PM CDT Meño Yeager MD LAB BLOOD ORDERABLES Final Result Performing Organization Address City/[facility]/ZIP Co de Phone Number [facility] [place] [address] * Type and screen (12/16/2024 9:00 PM CDT) Terry, indirect Negative ABO Rh A Positive [facility] Blood 12/16/2024 9:00 PM CDT 12/16/2024 9:36 PM CDT Narrative [facility] - 12/16/2024 10:37 PM CDT Has the patient had Daratumumab or Isatuximab in the past 6 months?->Unknown Meño Yeager MD LAB BLOOD BANK TEST ORDERABLES Final Result Performing Organization Address [facility] Co de Phone Number [facility] [place] [address] * Phosphorus (12/16/2024 9:00 PM CDT) Phosphorus, pl 2.6 2.3 - 4.5 mg/dL Blood 12/16/2024 9:00 PM CDT 12/16/2024 9:25 PM CDT Meño Yeager MD LAB BLOOD ORDERABLES Final Result Performing Organization Address City/[facility]/ZIP Co de Phone Number [facility] [place] [address] * (ABNORMAL) Magnesium (12/16/2024 9:00 PM CDT) Magnesium 2.9(H) 1.4 - 2.5 mg/dL Blood 12/16/2024 9:00 PM CDT 12/16/2024 9:25 PM CDT Meño Yeager MD LAB BLOOD ORDERABLES Final Result [facility] Department [place] [address] * (ABNORMAL) Basic metabolic panel (12/16/2024 9:00 PM CDT) Pathologist [facility] Sodium 135 135 - 145 mmol/L Potassium, pl 4.8 3.3 - 4.9 mmol/L [facility] Chloride 103 97 - 110 mmol/L [facility] CO2 25 22 - 32 mmol/L [facility] Anion gap 7 2 - 15 mmol/L [facility] BUN 40(H) 6 - 25 mg/dL [facility] Creatinine 2.06(H) 0.80 - 1.30 mg/dL [facility] Glucose 175 70 - 199 mg/dL [facility] Comment: Interpretive Data Fasting glucose >/= [...] Calcium 8.4(L) 8.5 - 10.3 mg/dL [facility] Blood 12/16/2024 9:00 PM CDT 12/16/2024 9:25 PM CDT us Meño Yeager MD LAB BLOOD ORDERAB[place] [address] * POCT glucose (12/16/2024 7:37 PM CDT) Glucose, POC 185 70 - 199 mg/dL Blood 12/16/2024 7:37 PM CDT 12/16/2024 7:37 PM CDT Meño Yeager MD LAB POCT ORDERABLES - DEVICE Final Result Performing Organization Address [facility] Co de Phone Number WANDA [facility] [place] [address] * (ABNORMAL) POCT glucose (12/16/2024 5:16 PM CDT) Glucose, POC 228(H) 70 - 199 mg/dL Blood 12/16/2024 5:16 PM CDT 12/16/2024 5:16 PM CDT Result [facility] Meño Yeager MD LAB POCT ORDERABLES - DEVICE Final Result Performing Organization Address City/[facility] Co de Phone Number AWNDA [facility] Department [place] [address] * Infection Prevention Nuvia auris PCR, surveillance Axilla/Groin (12/16/2024 3:51 PM CDT) Nuvia auris DNA Not Detected Not Detected [facility] Comment: Interpretive Data Testing performed by [facility] using the Matt marie [id number] Nuvia auris assay. This assay detects DNA from Nuvia auris using Real-Time PCR. This assay is laboratory developed and is not cleared by the [place] Food and Drug Administration. The performance characteristics have been verified by the [facility]. Axilla/Groin 12/16/2024 3:51 PM CDT 12/16/2024 3:59 PM CDT Mahendra Downs MD LAB MICROBIOLOGY - GENERAL ORDER PATT Final Result Performing Organization Address [facility] Co de Phone Number [facility] [place] [address] [facility] * (ABNORMAL) POCT glucose (12/16/2024 12:30 PM CDT) Glucose, POC 213(H) 70 - 199 mg/dL Blood 12/16/2024 12:3 0 PM CDT 12/16/2024 12:30 PM CDT Meño Yeager MD LAB POCT ORDERABLES - DEVICE Final Result Performing Organization Address [facility] de Phone Number [facility] Department [place] [address] * POCT glucose (12/16/2024 10:26 AM CDT) Glucose, POC 167 70 - 199 mg/dL Blood 12/16/2024 10:2 6 AM CDT 12/16/2024 10:26 AM CDT Meño Yeager MD LAB POCT ORDERABLES - DEVICE Final Result Performing Organization Address [facility] Co de Phone Number [facility] [place] [address] * XR Chest 1 View (12/16/2024 9:38 [...] Electronically signed by: Yuriy Page M.D. Meño Yeager MD IMG XR PROCEDURES Fi nal Result [...] plan with the patient's team and other medical/consultant technology staff. This time was in addition to [...] AM CDT 12/16/2024 7:35 AM CDT Meño Yeager MD LAB POCT ORDERABLES - DEVICE Final Result Performing Organization Address [facility]/ZIP Co de Phone Number [facility] Department [place] [address] * POCT glucose (12/16/2024 6:07 AM CDT) Glucose, POC 89 70 - 199 mg/dL Blood 12/16/2024 6:07 AM CDT 12/16/2024 6:07 AM CDT Meño Yeager MD LAB POCT ORDERABLES - DEVICE Final Result [facility] [place] [address] * POCT glucose (12/16/2024 2:59 AM CDT) Glucose, POC 84 70 - 199 mg/dL Blood 12/16/2024 2:59 AM CDT 12/16/2024 2:59 AM CDT Meño Yeager MD LAB POCT ORDERABLES - DEVICE Final Result [facility] [place] [address] * POCT glucose (12/15/2024 10:10 PM CDT) Glucose, POC 134 70 - 199 mg/dL Blood 12/15/2024 10:1 0 PM CDT 12/15/2024 10:10 PM CDT Meño Yeager MD LAB POCT ORDERABLES - DEVICE Final Result Performing Organization Address [facility]/ZIP Co de Phone Number [facility] [place] [address] * POCT glucose (12/15/2024 9:37 PM CDT) Glucose, POC 95 70 - 199 mg/dL Blood 12/15/2024 9:37 PM CDT 12/15/2024 9:37 PM CDT Meño Yeager MD LAB POCT ORDERABLES - DEVICE Final Result Performing Organization Address City/[facility]/ZIP Co de Phone Number [facility] [place] [address] * (ABNORMAL) POCT glucose (12/15/2024 9:12 PM CDT) Glucose, POC 61(L) 70 - 199 mg/dL Blood 12/15/2024 9:12 PM CDT 12/15/2024 9:12 PM CDT Meño Yeager MD LAB POCT ORDERABLES - DEVICE Final Result Performing Organization Address City/[facility]/ZIP Co de Phone Number [facility] [place] [address] * (ABNORMAL) eGFR (12/15/2024 8:50 PM CDT) eGFR 35(L) >=60 mL/min/1. 73 [...] CDT 12/15/2024 8:55 PM CDT us Meño Yeager MD LAB BLOOD ORDERABLES Final Result [facility] Department [place] [address] * Critical Result Callback Chemistry (12/15/2024 8:50 PM CDT) Date Notified [id number] Time Notified 2202 WANDA RODRIGUES TestName Glucose WANDA MCGHEE Called/Read Back Emily MCGHEE Credentials RN WANDA MCGHEE Called By TIMOTHY MCGHEE Blood 12/15/2024 8:50 PM CDT 12/15/2024 8:55 PM CDT us Meño Yeager MD LAB BLOOD ORDERABLES Final Result Performing Organization Address City/[facility] Co de Phone Number [facility] Department [place] [address] * (ABNORMAL) Protime-INR (12/15/2024 8:50 PM CDT) [facility] PT 17.2(H) 9.7 - 13.0 sec INR 1.58(H) 0.90 - 1.20 [facility] Comment: Interpretive data Oral anticoagulant therapeutic ranges: Venous thromboembolism prophylaxis or treatment: 2.0-3.0 CARDIOLOGY Standard range: 2.0-3.0 High-intensity range: 2.5-3.5 Refer to indication-specific guidelines for appropriate target ranges for prosthetic heart valve replacement. Current interpretive data was last revised on 2019. Blood 12/15/2024 8:50 PM CDT 12/15/2024 9:05 PM CDT Meño Yeager MD LAB BLOOD ORDERABLES Final Result Performing Organization Address [facility] Co de Phone Number [facility] Department [place] [address] * (ABNORMAL) CBC without differential (12/15/2024 8:50 PM CDT) [facility] WBC 15.82(H) 3.80 - 9.90 K/cumm Hgb 8.4(L) 13.0 - 17.5 g/dL [facility] Hct 26.2(L) 38.9 - 50.3 % [facility] Plt 390 150 - 400 K/cumm [facility] MPV 9.2 9.1 - 12.3 fL [facility] RBC 2.74(L) 4.30 - 5.80 M/cumm [facility] MCV 95.6 81.3 - 96.4 fL [facility] MCH 30.7 27.1 - 33.3 pg [facility] MCHC 32.1(L) 32.3 - 35.7 g/dL [facility] RDW CV 15.5(H) 11.1 - 14.9 % [facility] RDW SD 52.2(H) 35.7 - 48.1 fL [facility] NRBC abs 0.02(H) 0.00 - 0.01 K/cumm [facility] Blood 12/15/2024 8:50 PM CDT 12/15/2024 9:03 PM CDT Meño Yeager MD LAB BLOOD ORDERABLES Final Result Performing Organization Address [facility] Co de Phone Number [facility] [place] [address] * Type and screen (12/15/2024 8:50 PM CDT) Pathologist [facility] ABO Rh A Positive Terry, indirect Negative [facility] Blood 12/15/2024 8:50 PM CDT 12/15/2024 9:11 PM CDT Narrative [facility] - 12/15/2024 10:20 PM CDT Has the patient had Daratumumab or Isatuximab in the past 6 months?->Unknown Result [facility] Meño Yeager MD LAB BLOOD BANK TEST ORDERABLES Final Result Performing Organization Address [facility] de Phone Number [facility] [place] [address] * Phosphorus (12/15/2024 8:50 PM CDT) Pathologist [facility] Phosphorus, pl 2.8 2.3 - 4.5 mg/dL Blood 12/15/2024 8:50 PM CDT 12/15/2024 8:55 PM CDT Meño Yeager MD LAB BLOOD ORDERABLES Final Result Performing Organization Address [facility] Co de Phone Number [facility] [place] [address] * (ABNORMAL) Magnesium (12/15/2024 8:50 PM CDT) Magnesium 2.8(H) 1.4 - 2.5 mg/dL Blood 12/15/2024 8:50 PM CDT 12/15/2024 8:55 PM CDT Meño Yeager MD LAB BLOOD ORDERABLES Final Result [facility] Department [place] [address] * (ABNORMAL) Basic metabolic panel (12/15/2024 8:50 PM CDT) Sodium 138 135 - 145 mmol/L Potassium, pl 4.7 3.3 - 4.9 mmol/L [facility] Chloride 104 97 - 110 mmol/L [facility] CO2 24 22 - 32 mmol/L [facility] Anion gap 10 2 - 15 mmol/L [facility] BUN 46(H) 6 - 25 mg/dL [facility] Creatinine 1.92(H) 0.80 - 1.30 mg/dL [facility] Glucose 47(C) 70 - 199 mg/dL [facility] Comment: Glycolysis suspected; suggest sending a [...] Calcium 8.4(L) 8.5 - 10.3 mg/dL [facility] Blood 12/15/2024 8:50 PM CDT 12/15/2024 8:55 PM CDT Meño Yeager MD LAB BLOOD ORDERABLES Final Result [facility] [place] [address] * (ABNORMAL) POCT glucose (12/15/2024 8:48 PM CDT) Glucose, POC 56(L) 70 - 199 mg/dL Blood 12/15/2024 8:48 PM CDT 12/15/2024 8:48 PM CDT Meño Yeager MD LAB POCT ORDERABLES - DEVICE Final Result Performing Organization Address [facility]/ZIP Co de Phone Number [facility] [place] [address] * (ABNORMAL) POCT glucose (12/15/2024 8:47 PM CDT) Glucose, POC 55(L) 70 - 199 mg/dL Blood 12/15/2024 8:47 PM CDT 12/15/2024 8:47 PM CDT Meño Yeager MD LAB POCT ORDERABLES - DEVICE Final Result Performing Organization Address City/[facility]/ZIP Co de Phone Number [facility] [place] [address] * POCT glucose (12/15/2024 5:31 PM CDT) Glucose, POC 154 70 - 199 mg/dL Blood 12/15/2024 5:31 PM CDT 12/15/2024 5:31 PM CDT Meño Yeager MD LAB POCT ORDERABLES - DEVICE Final Result [facility] [place] [address] * (ABNORMAL) POCT glucose (12/15/2024 1:05 PM CDT) Glucose, POC 300(H) 70 - 199 mg/dL Blood 12/15/2024 1:05 PM CDT 12/15/2024 1:05 PM CDT Meño Yeager MD LAB POCT ORDERABLES - DEVICE Final Result [facility] Department [place] [address] * Critical Care (12/15/2024 8:51 AM CDT) [...] plan with the ICU team and other medical/consultant technology staff, making frequent assessments and decisions regarding [...] evaluated as it is out of the [id number]. Mild bibasilar atelectasis. No pneumothorax. Heart and [...] evaluated as it is out of the [id number]. Mild bibasilar atelectasis. No pneumothorax. Heart and mediastinum are unchanged. Dictated by: Taniya Maloney M.D. The radiology attending physician has personally reviewed this study, and had reviewed and/or edited this written report and agrees with it. Electronically signed by: Grace De Jesus M.D. us Meño Yeager MD IMG XR PROCEDURES Fi nal Result * POCT glucose (12/15/2024 8:42 AM CDT) Glucose, POC 79 70 - 199 mg/dL Blood 12/15/2024 8:42 AM CDT 12/15/2024 8:42 AM CDT Meño Yeager MD LAB POCT ORDERABLES - DEVICE Final Result Performing Organization Address [facility] Co de Phone Number [facility] [place] [address] * POCT glucose (12/15/2024 2:31 AM CDT) Glucose, POC 99 70 - 199 mg/dL Blood 12/15/2024 2:31 AM CDT 12/15/2024 2:31 AM CDT Meño Yeager MD LAB POCT ORDERABLES - DEVICE Final Result Performing Organization Address [facility] Co de Phone Number [facility] [place] [address] * POCT glucose (12/15/2024 12:30 AM CDT) Glucose, POC 116 70 - 199 mg/dL Blood 12/15/2024 12:3 0 AM CDT 12/15/2024 12:30 AM CDT Meño Yeager MD LAB POCT ORDERABLES - DEVICE Final Result Performing Organization Address City/[facility] [place] [address] * ECG 12 lead (12/14/2024 11:52 PM CDT) Ventricular Rate EKG/Min 51 BPM [facility] Atrial Rate 51 BPM [facility] HI-Interval (MSEC) 160 ms [facility] QRS-Interval (MSEC) 94 ms [facility] QT-Interval (MSEC) 510 ms [facility] QTc 470 ms [facility] P [place] 60 degrees [facility] R [place] -7 degrees [facility] T [place] 108 degrees [facility] Diagnosis Sinus bradycardia with occasional ventricular-pa joelle complexes Nonspecific ST and T wave abnormality Abnormal ECG Confirmed by Jayesh Freedman MD ([id number]) on 12/18/2024 12:14:15 AM [facility] 12/14/2024 11:5 2 PM CDT 12/18/2024 12:14 AM CDT us Meño Yeager MD ECG ORDERABLES Caro l Result [facility] * POCT glucose (12/14/2024 10:37 PM CDT) Glucose, POC 110 70 - 199 mg/dL Blood 12/14/2024 10:3 7 PM CDT 12/14/2024 10:37 PM CDT Meño Yeager MD LAB POCT ORDERABLES - DEVICE Final Result [facility] Department [place] [address] * (ABNORMAL) eGFR (12/14/2024 9:34 PM CDT) [...] 9:34 PM CDT 12/14/2024 10:02 PM CDT Result [facility] Meño Yeager MD LAB BLOOD ORDERABLES Final Result Performing Organization Address [facility] de Phone Number [facility] [place] [address] * (ABNORMAL) Protime-INR (12/14/2024 9:34 PM CDT) PT 17.5(H) 9.7 - 13.0 sec INR 1.60(H) 0.90 - 1.20 [facility] Comment: Interpretive data Oral anticoagulant therapeutic ranges: Venous thromboembolism prophylaxis or treatment: 2.0-3.0 CARDIOLOGY Standard range: 2.0-3.0 High-intensity range: 2.5-3.5 Refer to indication-specific guidelines for appropriate target ranges for prosthetic heart valve replacement. Current interpretive data was last revised on 2019. Blood 12/14/2024 9:34 PM CDT 12/14/2024 10:03 PM CDT Meño Yeager MD LAB BLOOD ORDERABLES Final Result Performing Organization Address [facility] de Phone Number [facility] Department [place] [address] * (ABNORMAL) CBC without differential (12/14/2024 9:34 PM CDT) WBC 16.61(H) 3.80 - 9.90 K/cumm Hgb 8.7(L) 13.0 - 17.5 g/dL [facility] Hct 26.3(L) 38.9 - 50.3 % [facility] Plt 405(H) 150 - 400 K/cumm [facility] MPV 9.4 9.1 - 12.3 fL [facility] RBC 2.80(L) 4.30 - 5.80 M/cumm [facility] MCV 93.9 81.3 - 96.4 fL [facility] MCH 31.1 27.1 - 33.3 pg [facility] MCHC 33.1 32.3 - 35.7 g/dL [facility] RDW CV 15.2(H) 11.1 - 14.9 % [facility] RDW SD 50.4(H) 35.7 - 48.1 fL [facility] NRBC abs 0.03(H) 0.00 - 0.01 K/cumm [facility] Blood 12/14/2024 9:34 PM CDT 12/14/2024 9:54 PM CDT Meño Yeager MD LAB BLOOD ORDERABLES Final Result Performing Organization Address City/[facility] Co de Phone Number [facility] Department [place] [address] * Phosphorus (12/14/2024 9:34 PM CDT) Phosphorus, pl 3.6 2.3 - 4.5 mg/dL Blood 12/14/2024 9:34 PM CDT 12/14/2024 9:55 PM CDT Meño Yeager MD LAB BLOOD ORDERABLES Final Result [facility] Department [place] [address] * (ABNORMAL) Magnesium (12/14/2024 9:34 PM CDT) Magnesium 2.8(H) 1.4 - 2.5 mg/dL Blood 12/14/2024 9:34 PM CDT 12/14/2024 9:55 PM CDT Meño Yeager MD LAB BLOOD ORDERABLES Final Result [facility] Department [place] [address] * (ABNORMAL) Hepatic function panel (12/14/2024 9:34 PM CDT) [facility] Bilirubin, total 0.3 0.1 - 1.2 mg/dL Bilirubin, direct 0.2 0.1 - 0.3 mg/dL [facility] Protein, pl 6.2(L) 6.5 - 8.5 g/dL [facility] Albumin 3.0(L) 3.5 - 5.0 g/dL [facility] Alk phos 134(H) 40 - 130 Units/L [facility] ALT 221(H) 7 - 55 Units/L [facility] AST 126(H) 10 - 50 Units/L [facility] Blood 12/14/2024 9:34 PM CDT 12/14/2024 10:02 PM CDT Robert Mas MD LAB BLOOD ORDERABL ES Final Result Performing Organization Address City/[facility] Co de Phone Number [facility] Department [place] [address] * (ABNORMAL) Basic metabolic panel (12/14/2024 9:34 PM CDT) [facility] Sodium 137 135 - 145 mmol/L Potassium, pl 4.6 3.3 - 4.9 mmol/L [facility] Chloride 104 97 - 110 mmol/L [facility] CO2 26 22 - 32 mmol/L [facility] Anion gap 7 2 - 15 mmol/L [facility] BUN 50(H) 6 - 25 mg/dL [facility] Creatinine 1.95(H) 0.80 - 1.30 mg/dL [facility] Glucose 69(L) 70 - 199 mg/dL [facility] Comment: Interpretive Data Fasting glucose >/= [...] Calcium 8.3(L) 8.5 - 10.3 mg/dL [facility] Blood 12/14/2024 9:34 PM CDT 12/14/2024 9:55 PM CDT Meño Yeager MD LAB BLOOD ORDERABLES Final Result Performing Organization Address [facility] Co de Phone Number [facility] Department [place] [address] * POCT glucose (12/14/2024 9:33 PM CDT) Glucose, POC 78 70 - 199 mg/dL Blood 12/14/2024 9:33 PM CDT 12/14/2024 9:33 PM CDT Meño Yeager MD LAB POCT ORDERABLES - DEVICE Final Result Performing Organization Address [facility] Co de Phone Number [facility] Department [place] [address] * (ABNORMAL) POCT glucose (12/14/2024 3:42 PM CDT) Glucose, POC 308(H) 70 - 199 mg/dL Blood 12/14/2024 3:42 PM CDT 12/14/2024 3:42 PM CDT Meño Yeager MD LAB POCT ORDERABLES - DEVICE Final Result Performing Organization Address [facility] Co de Phone Number [facility] Department [place] [address] * ECG 12 lead (12/14/2024 3:24 PM CDT) [facility] Ventricular Rate EKG/Min 100 BPM [facility] Atrial Rate 100 BPM [facility] HI-Interval (MSEC) 204 ms [facility] QRS-Interval (MSEC) 100 ms [facility] QT-Interval (MSEC) 360 ms [facility] QTc 464 ms [facility] P [place] 36 degrees [facility] R [place] -12 degrees [facility] T [place] 130 degrees [facility] Diagnosis Normal sinus rhythm Inferior-cage cashier ior infarct , age undetermined ST & T wave abnormality, consider lateral ischemia Abnormal ECG Confirmed by Jasmina PIKE [facility] ([id number]) on 12/18/2024 12:13:07 AM [facility] 12/14/2024 3:24 PM CDT 12/18/2024 12:13 AM CDT us Meño Yeager MD ECG ORDERABLES Caro l Result [facility] * POCT glucose (12/14/2024 12:22 PM CDT) [facility] Glucose, POC 167 70 - 199 mg/dL Blood 12/14/2024 12:2 2 PM CDT 12/14/2024 12:22 PM CDT us Meño Yeager MD LAB POCT ORDERABLES - DEVICE Final Result [facility] Department [place] [address] * Critical Care (12/14/2024 8:40 AM CDT) [...] plan with the patient's team and other medical/consultant technology staff. This time was in addition to [...] AM CDT 12/14/2024 9:02 AM CDT [address]arrative [facility] - 12/15/2024 12:23 PM CDT Testing performed by [facility] ([phone]). us Meño Yeager MD LAB MICROBIOLOGY - G ENERAL ORDERABLES Final Result [facility] [place] [address] * POCT glucose (12/14/2024 7:41 AM CDT) Glucose, POC 95 70 - 199 mg/dL Blood 12/14/2024 7:41 AM CDT 12/14/2024 7:41 AM CDT us Meño Yeager MD LAB POCT ORDERABLES - DEVICE Final Result WANDA MCG[facility]E [facility] Department [place] [address] * XR Chest 1 View (12/14/2024 4:22 [...] 1 view chest radiograph Procedure Note Earl Perez MD PhD - 12/14/2024 EXAMINATION: 1 view [...] Electronically signed by: Earl Perez M.D. Meño Yeager MD IMG XR PROCEDURES Fi nal Result * POCT glucose (12/14/2024 2:49 AM CDT) Glucose, POC 128 70 - 199 mg/dL Blood 12/14/2024 2:49 AM CDT 12/14/2024 2:49 AM CDT Meño Yeager MD LAB POCT ORDERABLES - DEVICE Final Result [facility] Department [place] [address] * (ABNORMAL) eGFR (12/13/2024 9:50 PM CDT) eGFR 44(L) >=60 mL/min/1. 73 m2 Comment: [...] PM CDT 12/13/2024 10:00 PM CDT Meño Yeager MD LAB BLOOD ORDERABLES Final Result Performing Organization Address [facility] Co de Phone Number [facility] Department [place] [address] * (ABNORMAL) Protime-INR (12/13/2024 9:50 PM CDT) [facility] PT 16.9(H) 9.7 - 13.0 sec INR 1.55(H) 0.90 - 1.20 [facility] Comment: Interpretive data Oral anticoagulant therapeutic ranges: Venous thromboembolism prophylaxis or treatment: 2.0-3.0 CARDIOLOGY Standard range: 2.0-3.0 High-intensity range: 2.5-3.5 Refer to indication-specific guidelines for appropriate target ranges for prosthetic heart valve replacement. Current interpretive data was last revised on 2019. Blood 12/13/2024 9:50 PM CDT 12/13/2024 10:11 PM CDT Meño Yeager MD LAB BLOOD ORDERABLES Final Result Performing Organization Address [facility] [facility] Co de Phone Number [facility] Department [place] [address] * (ABNORMAL) CBC without differential (12/13/2024 9:50 PM CDT) [facility] WBC 18.65(H) 3.80 - 9.90 K/cumm Hgb 8.9(L) 13.0 - 17.5 g/dL [facility] Hct 26.9(L) 38.9 - 50.3 % [facility] Plt 382 150 - 400 K/cumm [facility] MPV 9.2 9.1 - 12.3 fL [facility] RBC 2.87(L) 4.30 - 5.80 M/cumm [facility] MCV 93.7 81.3 - 96.4 fL [facility] MCH 31.0 27.1 - 33.3 pg [facility] MCHC 33.1 32.3 - 35.7 g/dL [facility] RDW CV 15.4(H) 11.1 - 14.9 % [facility] RDW SD 49.9(H) 35.7 - 48.1 fL [facility] NRBC abs 0.02(H) 0.00 - 0.01 K/cumm [facility] Blood 12/13/2024 9:50 PM CDT 12/13/2024 10:00 PM CDT Meño Yeager MD LAB BLOOD ORDERABLES Final Result Performing Organization Address City/[facility] Co de Phone Number [facility] [place] [address] * Phosphorus (12/13/2024 9:50 PM CDT) Pathologist [facility] Phosphorus, pl 3.5 2.3 - 4.5 mg/dL Blood 12/13/2024 9:50 PM CDT 12/13/2024 10:00 PM CDT Meño Yeager MD LAB BLOOD ORDERABLES Final Result Performing Organization Address [facility] Co de Phone Number [facility] [employer] [address] * (ABNORMAL) Magnesium (12/13/2024 9:50 PM CDT) [facility] Magnesium 2.7(H) 1.4 - 2.5 mg/dL Blood 12/13/2024 9:50 PM CDT 12/13/2024 10:00 PM CDT Meño Yeager MD LAB BLOOD ORDERABLES Final Result Performing Organization Address [facility] Co de Phone Number [facility] [place] [employer] [address] * (ABNORMAL) Basic metabolic panel (12/13/2024 9:50 PM CDT) Pathologist [facility] Sodium 140 135 - 145 mmol/L Potassium, pl 5.1(H) 3.3 - 4.9 mmol/L [facility] Chloride 106 97 - 110 mmol/L [facility] CO2 24 22 - 32 mmol/L [facility] Anion gap 10 2 - 15 mmol/L [facility] BUN 44(H) 6 - 25 mg/dL [facility] Creatinine 1.61(H) 0.80 - 1.30 mg/dL [facility] Glucose 144 70 - 199 mg/dL [facility] Comment: Interpretive Data Fasting glucose >/= [...] Calcium 8.1(L) 8.5 - 10.3 mg/dL [facility] Blood 12/13/2024 9:50 PM CDT 12/13/2024 10:00 PM CDT us Meño Yeager MD LAB BLOOD ORDERABLES Final Result Performing Organization Address [facility]/ZIP Co de Phone Number [facility] Department [place] [address] * POCT glucose (12/13/2024 9:48 PM CDT) [facility] Signature Glucose, POC 159 70 - 199 mg/dL Blood 12/13/2024 9:48 PM CDT 12/13/2024 9:48 PM CDT Meño Yeager MD LAB POCT ORDERABLES - DEVICE Final Result Performing Organization Address City/[facility]/ZIP Co de Phone Number [facility] Department [place] [address] * POCT glucose (12/13/2024 5:38 PM CDT) Glucose, POC 178 70 - 199 mg/dL Blood 12/13/2024 5:38 PM CDT 12/13/2024 5:38 PM CDT Meño Yeager MD LAB POCT ORDERABLES - DEVICE Final Result Performing Organization Address City/[facility] Co de Phone Number [facility] [place] [address] * POCT glucose (12/13/2024 5:22 PM CDT) [facility] Glucose, POC 170 70 - 199 mg/dL Blood 12/13/2024 5:22 PM CDT 12/13/2024 5:22 PM CDT Meoñ Yeager MD LAB POCT ORDERABLES - DEVICE Final Result Performing Organization Address [facility] [place] [address] * POCT glucose (12/13/2024 11:14 AM CDT) [facility] Glucose, POC 136 70 - 199 mg/dL Blood 12/13/2024 11:1 4 AM CDT 12/13/2024 11:14 AM CDT Result [facility] Meño Yeager MD LAB POCT ORDERABLES - DEVICE Final Result Performing Organization Address City/[facility] [place] [address] * Respiratory pathogen panel Nasopharyngeal (12/13/2024 9:24 AM CDT) [facility] Influenza A RNA Not Detected Not Detected Influenza B RNA Not Detected Not Detected [facility] RSV RNA Not Detected Not Detected [facility] COVID-19 RNA Not Detected Not Detected [facility] Coronavirus 229E RNA Not Detected Not Detected [facility] Coronavirus HKU1 RNA Not Detected Not Detected [facility] Coronavirus NL63 RNA Not Detected Not Detected [facility] Coronavirus OC43 RNA Not Detected Not Detected [facility] Adenovirus DNA Not Detected Not Detected [facility] Metapneumovirus RNA Not Detected Not Detected [facility] Rhinovirus/Enterov irus RNA Not Detected Not Detected [facility] Parainfluenza 1 RNA Not Detected Not Detected [facility] Parainfluenza 2 RNA Not Detected Not Detected [facility] Parainfluenza 3 RNA Not Detected Not Detected [facility] Parainfluenza 4 RNA Not Detected Not Detected [facility] B. pertussis DNA Not Detected Not Detected [facility] B. parapertussis DNA Not Detected Not Detected [facility] C. pneumoniae DNA Not Detected Not Detected [facility] M. pneumoniae DNA Not Detected Not Detected [facility] Nasopharyngeal 12/13/2024 9: 24 AM CDT 12/13/2024 9:35 AM CDT Narrative [facility] - 12/13/2024 10:41 AM CDT Is the Patient experiencing symptoms consistent with COVID?->Unknown Surveillance testing for transplant patient?->No Interpretive Data The [employer] FilmArray Respiratory Panel (RP2.1) assay is a [...] assay has FDA clearance for testing of [employer] swabs. The performance of additional specimen types has been assessed by the performing laboratory. The performance characteristics of this assay have been determined by [facility]. Current interpretive data was last revised on 22. Meño Yeager MD LAB MICROBIOLOGY - [facility] ORDERABLES Final Result [facility] Department [place] [address] * Critical Care (12/13/2024 8:41 AM CDT) [...] plan with the patient's team and other medical/consultant technology staff. This time was in addition to [...] ur Straw Yellow Clarity, ur Clear Clear [facility] Specific gravity, ur 1.018 1.003 - 1.030 [facility] pH, urine 5.5 [facility] Comment: Interpretive Data U rine pH is affected by diet, medications, systemic acid-base disturbances, and renal tubular function. pH may affect urinary stone formation. For example, urine pH below 6.0 may help reduce the tendency for calcium phosphate stones and pH greater than 6.0 may reduce the tendency for uric acid stone formation. Source: [facility] [employer] Current Interpretive Data was last revised on 2017 Protein, ur ql Trace Negative [facility] Glucose, ur ql Negative Negative [facility] Ketones, ur Negative Negative [facility] Bilirubin, ur Negative Negative [facility] Blood, ur Negative Negative [facility] Urobilinogen, ur <2.0 <2.0 mg/dL [facility] Nitrite, ur Negative Negative [facility] Leukocyte esterase, ur Negative Negative [facility] UA reflex comment Reflex conditions for microscopic UA not met. [facility] Urine 12/13/2024 8:39 AM CDT 12/13/2024 9:17 AM CDT us Meño Yeager MD LAB URINE ORDERABLES Final Result [facility] [place] [address] * POCT glucose (12/13/2024 8:19 AM CDT) Glucose, POC 102 70 - 199 mg/dL Blood 12/13/2024 8:19 AM CDT 12/13/2024 8:19 AM CDT Meño Yeager MD LAB POCT ORDERABLES - DEVICE Final Result Performing Organization Address [facility]/[place] [address] * Type and screen (12/13/2024 8:13 AM CDT) [facility] ABO Rh A Positive Terry, indirect Negative [facility] Blood 12/13/2024 8:13 AM CDT 12/13/2024 8:32 AM CDT Narrative [facility] - 12/13/2024 9:38 AM CDT Has the patient had Daratumumab or Isatuximab in the past 6 months?->Unknown Robert Mas MD LAB BLOOD BANK BRYAN T ORDERABLES Final Result Performing Organization Address [facility] Co de Phone Number [facility] [place] [address] * POCT glucose (12/13/2024 7:50 AM CDT) Glucose, POC 109 70 - 199 mg/dL Blood 12/13/2024 7:50 AM CDT 12/13/2024 7:50 AM CDT Meño Yeager MD LAB POCT ORDERABLES - DEVICE Final Result Performing Organization Address City/[facility]/ZIP Co de Phone Number [facility] [place] [address] * XR Chest 1 View (12/13/2024 5:59 [...] Electronically signed by: Giovanna Vicente M.D. us Meño Yeager MD IMG XR PROCEDURES Fi nal Result * POCT glucose (12/13/2024 2:07 AM CDT) Glucose, POC 126 70 - 199 mg/dL Blood 12/13/2024 2:07 AM CDT 12/13/2024 2:07 AM CDT Meño Yeager MD LAB POCT ORDERABLES - DEVICE Final Result [facility] [place] [address] * (ABNORMAL) eGFR (12/12/2024 9:08 PM CDT) eGFR 39(L) >=60 mL/min/1. 73 [...] 9:08 PM CDT 12/12/2024 9:30 PM CDT us Meño Yeager MD LAB BLOOD ORDERABLES Final Result [facility] Department [place] [address] * POCT glucose (12/12/2024 9:08 PM CDT) Glucose, POC 114 70 - 199 mg/dL Blood 12/12/2024 9:08 PM CDT 12/12/2024 9:08 PM CDT Meño Yeager MD LAB POCT ORDERABLES - DEVICE Final Result Performing Organization Address City/[facility]/ZIP Co de Phone Number [facility] Department [place] [address] * (ABNORMAL) Protime-INR (12/12/2024 9:08 PM CDT) [facility] PT 16.5(H) 9.7 - 13.0 sec INR 1.51(H) 0.90 - 1.20 [facility] Comment: Interpretive data Oral anticoagulant therapeutic ranges: Venous thromboembolism prophylaxis or treatment: 2.0-3.0 CARDIOLOGY Standard range: 2.0-3.0 High-intensity range: 2.5-3.5 Refer to indication-specific guidelines for appropriate target ranges for prosthetic heart valve replacement. Current interpretive data was last revised on 2019. Blood 12/12/2024 9:08 PM CDT 12/12/2024 9:21 PM CDT Meño Yeager MD LAB BLOOD ORDERABLES Final Result Performing Organization Address City/[facility]/ZIP Co de Phone Number [facility] Department [place] [address] * (ABNORMAL) CBC without differential (12/12/2024 9:08 PM CDT) [facility] WBC 19.70(H) 3.80 - 9.90 K/cumm Hgb 8.2(L) 13.0 - 17.5 g/dL [facility] Hct 25.0(L) 38.9 - 50.3 % [facility] Plt 355 150 - 400 K/cumm [facility] MPV 9.3 9.1 - 12.3 fL [facility] RBC 2.65(L) 4.30 - 5.80 M/cumm [facility] MCV 94.3 81.3 - 96.4 fL [facility] MCH 30.9 27.1 - 33.3 pg [facility] MCHC 32.8 32.3 - 35.7 g/dL [facility] RDW CV 14.8 11.1 - 14.9 % [facility] RDW SD 49.6(H) 35.7 - 48.1 fL [facility] NRBC abs 0.02(H) 0.00 - 0.01 K/cumm [facility] Blood 12/12/2024 9:08 PM CDT 12/12/2024 9:19 PM CDT Meño Yeager MD LAB BLOOD ORDERABLES Final Result [facility] [place] [address] * Phosphorus (12/12/2024 9:08 PM CDT) Phosphorus, pl 4.1 2.3 - 4.5 mg/dL Blood 12/12/2024 9:08 PM CDT 12/12/2024 9:16 PM CDT Meño Yeager MD LAB BLOOD ORDERABLES Final Result Performing Organization Address City/[facility]/ZIP Co de Phone Number [facility] [place] [address] * (ABNORMAL) Magnesium (12/12/2024 9:08 PM CDT) Magnesium 2.6(H) 1.4 - 2.5 mg/dL Blood 12/12/2024 9:08 PM CDT 12/12/2024 9:16 PM CDT Meño Yeager MD LAB BLOOD ORDERABLES Final Result Performing Organization Address City/[facility]/ZIP Co de Phone Number [facility] [place] [address] * (ABNORMAL) Basic metabolic panel (12/12/2024 9:08 PM CDT) Sodium 138 135 - 145 mmol/L Potassium, pl 4.5 3.3 - 4.9 mmol/L [facility] Chloride 105 97 - 110 mmol/L [facility] CO2 24 22 - 32 mmol/L [facility] Anion gap 9 2 - 15 mmol/L [facility] BUN 50(H) 6 - 25 mg/dL [facility] Creatinine 1.76(H) 0.80 - 1.30 mg/dL [facility] Glucose 114 70 - 199 mg/dL [facility] Comment: Interpretive Data Fasting glucose >/= [...] Calcium 8.2(L) 8.5 - 10.3 mg/dL [facility] Blood 12/12/2024 9:08 PM CDT 12/12/2024 9:16 PM CDT us Meño Yeager MD LAB BLOOD ORDERABLES Final Result [facility] Department [place] [address] * POCT glucose (12/12/2024 6:45 PM CDT) Glucose, POC 95 70 - 199 mg/dL Blood 12/12/2024 6:45 PM CDT 12/12/2024 6:45 PM CDT Meño Yeager MD LAB POCT ORDERABLES - DEVICE Final Result Performing Organization Address City/[facility]/ZIP Co de Phone Number [facility] [place] [employer] [address] * (ABNORMAL) POCT glucose (12/12/2024 5:18 PM CDT) Glucose, POC 63(L) 70 - 199 mg/dL Blood 12/12/2024 5:18 PM CDT 12/12/2024 5:18 PM CDT Meño Yeager MD LAB POCT ORDERABLES - DEVICE Final Result Performing Organization Address [facility] Co de Phone Number [facility] [place] [address] * (ABNORMAL) POCT glucose (12/12/2024 5:16 PM CDT) Glucose, POC 64(L) 70 - 199 mg/dL Blood 12/12/2024 5:16 PM CDT 12/12/2024 5:16 PM CDT Meño Yeager MD LAB POCT ORDERABLES - DEVICE Final Result Performing Organization Address [facility] Co de Phone Number [facility] [place] [address] * POCT glucose (12/12/2024 12:07 PM CDT) Glucose, POC 198 70 - 199 mg/dL Blood 12/12/2024 12:0 7 PM CDT 12/12/2024 12:07 PM CDT Meño Yeager MD LAB POCT ORDERABLES - DEVICE Final Result Performing Organization Address City/[facility] Co de Phone Number [facility] [place] [address] * XR Chest 1 View (12/12/2024 10:11 [...] Electronically signed by: Yuriy Page M.D. Meño Yeager MD IMG XR PROCEDURES Fi nal Result * (ABNORMAL) POCT glucose (12/12/2024 8:55 AM CDT) Glucose, POC 207(H) 70 - 199 mg/dL Blood 12/12/2024 8:55 AM CDT 12/12/2024 8:55 AM CDT Meño Yeager MD LAB POCT ORDERABLES - DEVICE Final Result [facility] Department [place] [address] * Critical Care (12/12/2024 8:48 AM CDT) [...] plan with the patient's team and other medical/consultant technology staff. This time was in addition to [...] ORDERABLES Fin al Result * Infection Prevention Nuvia auris PCR, surveillance Axilla/Groin (12/12/2024 5:39 AM CDT) Nuvia auris DNA Not Detected Not Detected [facility] Comment: Interpretive Data Testing performed by [facility] using the Matt marie [id number] Nuvia auris assay. This assay detects DNA from Nuvia auris using Real-Time PCR. This assay is laboratory developed and is not cleared by the [place] Food and Drug Administration. The performance characteristics have been verified by the [facility]. Axilla/Groin 12/12/2024 5:39 AM CDT 12/12/2024 7:21 AM CDT Narrative [facility] - 12/12/2024 2:55 PM CDT Order placed by [facility] due to ring surveillance. Instant Order Generic Provider LAB MICROBIOLOGY - GENERAL ORDERABLES Final Result Performing Organization Address City/[facility]/ZIP Co de Phone Number [facility] [place] [address] [facility] * POCT glucose (12/12/2024 5:14 AM CDT) Glucose, POC 92 70 - 199 mg/dL Blood 12/12/2024 5:14 AM CDT 12/12/2024 5:14 AM CDT Meño Yeager MD LAB POCT ORDERABLES - DEVICE Final Result Performing Organization Address [facility] Co de Phone Number [facility] Department [place] [address] * POCT glucose (12/12/2024 4:12 AM CDT) Glucose, POC 97 70 - 199 mg/dL Blood 12/12/2024 4:1 2 AM CDT 12/12/2024 4:12 AM CDT Meño Yeager MD LAB POCT ORDERABLES - DEVICE Final Result Performing Organization Address City/[facility]/ZIP Co de Phone Number [facility] [place] [address] * POCT glucose (12/12/2024 3:45 AM CDT) Glucose, POC 72 70 - 199 mg/dL Blood 12/12/2024 3:45 AM CDT 12/12/2024 3:45 AM CDT Meño Yeager MD LAB POCT ORDERABLES - DEVICE Final Result Performing Organization Address City/[facility] Co de Phone Number [facility] [place] [address] * (ABNORMAL) POCT glucose (12/12/2024 3:27 AM CDT) Glucose, POC 64(L) 70 - 199 mg/dL Blood 12/12/2024 3:27 AM CDT 12/12/2024 3:27 AM CDT Meño Yeager MD LAB POCT ORDERABLES - DEVICE Final Result Performing Organization Address [facility] Co de Phone Number [facility] [place] [address] * POCT glucose (12/11/2024 8:42 PM CDT) Glucose, POC 118 70 - 199 mg/dL Blood 12/11/2024 8:42 PM CDT 12/11/2024 8:42 PM CDT Meño Yeager MD LAB POCT ORDERABLES - DEVICE Final Result Performing Organization Address [facility] Co de Phone Number [facility] Department [place] [address] * (ABNORMAL) eGFR (12/11/2024 8:38 PM CDT) [...] glomerular filtration rate is determined by the 2021 CKD-EPI equation recommended by the National Kidney [...] PM CDT 12/11/2024 9:01 PM CDT Meño Yeager MD LAB BLOOD ORDERABLES Final Result [facility] [place] [address] * (ABNORMAL) Protime-INR (12/11/2024 8:38 PM CDT) PT 16.2(H) 9.7 - 13.0 sec INR 1.49(H) 0.90 - 1.[address] [facility] Comment: Interpretive data Oral anticoagulant therapeutic ranges: Venous thromboembolism prophylaxis or treatment: 2.0-3.0 CARDIOLOGY Standard range: 2.0-3.0 High-intensity range: 2.5-3.5 Refer to indication-specific guidelines for appropriate target ranges for prosthetic heart valve replacement. Current interpretive data was last revised on 2019. Blood 12/11/2024 8:38 PM CDT 12/11/2024 8:55 PM CDT us Meño Yeager MD LAB BLOOD ORDERABLES Final Result [facility] [place] [address] * (ABNORMAL) CBC without differential (12/11/2024 8:38 PM CDT) WBC 15.57(H) 3.80 - 9.90 K/cumm Hgb 8.1(L) 13.0 - 17.5 g/dL [facility] Hct 25.5(L) 38.9 - 50.3 % [facility] Plt 352 150 - 400 K/cumm [facility] MPV 9.4 9.1 - 12.3 fL [facility] RBC 2.70(L) 4.30 - 5.80 M/cumm [facility] MCV 94.4 81.3 - 96.4 fL [facility] MCH 30.0 27.1 - 33.3 pg [facility] MCHC 31.8(L) 32.3 - 35.7 g/dL [facility] RDW CV 14.7 11.1 - 14.9 % [facility] RDW SD 48.9(H) 35.7 - 48.1 fL [facility] NRBC abs 0.03(H) 0.00 - 0.01 K/cumm [facility] Blood 12/11/2024 8:38 PM CDT 12/11/2024 9:02 PM CDT Meño Yeager MD LAB BLOOD ORDERABLES Final Result [facility] [place] [address] * Phosphorus (12/11/2024 8:38 PM CDT) Phosphorus, pl 3.8 2.3 - 4.5 mg/dL Blood 12/11/2024 8:38 PM CDT 12/11/2024 8:56 PM CDT Meño Yeager MD LAB BLOOD ORDERABLES Final Result [facility] [place] [address] * (ABNORMAL) Magnesium (12/11/2024 8:38 PM CDT) Magnesium 2.6(H) 1.4 - 2.5 mg/dL Blood 12/11/2024 8:38 PM CDT 12/11/2024 8:56 PM CDT Meño Yeager MD LAB BLOOD ORDERABLES Final Result [facility] Department [place] [address] * (ABNORMAL) Basic metabolic panel (12/11/2024 8:38 PM CDT) [facility] Sodium 137 135 - 145 mmol/L Potassium, pl 4.6 3.3 - 4.9 mmol/L [facility] Chloride 104 97 - 110 mmol/L [facility] CO2 25 22 - 32 mmol/L [facility] Anion gap 8 2 - 15 mmol/L [facility] BUN 50(H) 6 - 25 mg/dL [facility] Creatinine 1.81(H) 0.80 - 1.30 mg/dL [facility] Glucose 113 70 - 199 mg/dL [facility] Comment: Interpretive Data Fasting glucose >/= [...] Calcium 7.5(L) 8.5 - 10.3 mg/dL [facility] Blood 12/11/2024 8:38 PM CDT 12/11/2024 8:56 PM CDT Meño Yeager MD LAB BLOOD ORDERABLES Final Result Performing Organization Address City/[facility]/ZIP Co de Phone Number [facility] Department [place] [address] * (ABNORMAL) POCT glucose (12/11/2024 5:06 PM CDT) Glucose, POC 305(H) 70 - 199 mg/dL Blood 12/11/2024 5:06 PM CDT 12/11/2024 5:06 PM CDT Meño Yeager MD LAB POCT ORDERABLES - DEVICE Final Result Performing Organization Address [facility] [facility] Co de Phone Number [facility] Department [place] [address] * (ABNORMAL) POCT glucose (12/11/2024 11:52 AM CDT) Glucose, POC 348(H) 70 - 199 mg/dL Blood 12/11/2024 11:5 2 AM CDT 12/11/2024 11:52 AM CDT Meño Yeager MD LAB POCT ORDERABLES - DEVICE Final Result Performing Organization Address [facility] de Phone Number [facility] Department [place] [employer] [place] [address] * Critical Care (12/11/2024 8:51 AM CDT) [...] plan with the ICU team and other medical/consultant technology staff, making frequent assessments and decisions regarding [...] AM CDT 12/11/2024 8:29 AM CDT Meño Yeager MD LAB POCT ORDERABLES - DEVICE Final Result Performing Organization Address [facility]/ZIP Co de Phone Number [facility] Department [place] [address] * POCT glucose (12/11/2024 1:47 AM CDT) Glucose, POC 108 70 - 199 mg/dL Blood 12/11/2024 1:47 AM CDT 12/11/2024 1:47 AM CDT Meño Yeager MD LAB POCT ORDERABLES - DEVICE Final Result [facility] [place] [address] * (ABNORMAL) eGFR (12/10/2024 8:09 PM CDT) [...] PM CDT 12/10/2024 8:27 PM CDT Meño Yeager MD LAB BLOOD ORDERABLES Final Result [facility] Department [place] [address] * (ABNORMAL) Protime-INR (12/10/2024 8:09 PM CDT) PT 16.4(H) 9.7 - 13.0 sec INR 1.51(H) 0.90 - 1.[address] [facility] Comment: Interpretive data Oral anticoagulant therapeutic ranges: Venous thromboembolism prophylaxis or treatment: 2.0-3.0 CARDIOLOGY Standard range: 2.0-3.0 High-intensity range: 2.5-3.5 Refer to indication-specific guidelines for appropriate target ranges for prosthetic heart valve replacement. Current interpretive data was last revised on 2019. Blood 12/10/2024 8:09 PM CDT 12/10/2024 8:24 PM CDT Meño Yeager MD LAB BLOOD ORDERABLES Final Result Performing Organization Address [facility] Co de Phone Number [facility] Department [place] [address] * (ABNORMAL) CBC without differential (12/10/2024 8:09 PM CDT) Pathologist [facility] WBC 15.10(H) 3.80 - 9.90 K/cumm Hgb 7.8(L) 13.0 - 17.5 g/dL [facility] Hct 23.3(L) 38.9 - 50.3 % [facility] Plt 303 150 - 400 K/cumm [facility] MPV 9.6 9.1 - 12.3 fL [facility] RBC 2.46(L) 4.30 - 5.80 M/cumm [facility] MCV 94.7 81.3 - 96.4 fL [facility] MCH 31.7 27.1 - 33.3 pg [facility] MCHC 33.5 32.3 - 35.7 g/dL [facility] RDW CV 14.8 11.1 - 14.9 % [facility] RDW SD 49.7(H) 35.7 - 48.1 fL [facility] NRBC abs 0.02(H) 0.00 - 0.01 K/cumm [facility] Blood 12/10/2024 8:09 PM CDT 12/10/2024 8:23 PM CDT Meño Yeager MD LAB BLOOD ORDERABLES Final Result Performing Organization Address [facility] Co de Phone Number [facility] Department [place] [address] * Type and screen (12/10/2024 8:09 PM CDT) Pathologist [facility] Terry, indirect Negative ABO Rh A Positive [facility] Blood 12/10/2024 8:09 PM CDT 12/10/2024 8:22 PM CDT Narrative [facility] - 12/10/2024 9:17 PM CDT Has the patient had Daratumumab or Isatuximab in the past 6 months?->Unknown Meño Yeager MD LAB BLOOD BANK TEST ORDERABLES Final Result Performing Organization Address City/[facility] Co de Phone Number [facility] [place] [address] * Phosphorus (12/10/2024 8:09 PM CDT) [facility] Phosphorus, pl 4.3 2.3 - 4.5 mg/dL Blood 12/10/2024 8:09 PM CDT 12/10/2024 8:18 PM CDT Meño Yeager MD LAB BLOOD ORDERABLES Final Result Performing Organization Address [facility] Co de Phone Number [facility] [place] [address] * Magnesium (12/10/2024 8:09 PM CDT) [facility] Magnesium 2.5 1.4 - 2.5 mg/dL Blood 12/10/2024 8:09 PM CDT 12/10/2024 8:18 PM CDT Result [facility] Meño Yeager MD LAB BLOOD ORDERABLES Final Result Performing Organization Address [facility] [place] [address] * (ABNORMAL) Basic metabolic panel (12/10/2024 8:09 PM CDT) [facility] Sodium 141 135 - 145 mmol/L Potassium, pl 4.3 3.3 - 4.9 mmol/L [facility] Chloride 107 97 - 110 mmol/L [facility] CO2 24 22 - 32 mmol/L [facility] Anion gap 10 2 - 15 mmol/L [facility] BUN 47(H) 6 - 25 mg/dL [facility] Creatinine 1.62(H) 0.80 - 1.30 mg/dL [facility] Glucose 83 70 - 199 mg/dL [facility] Comment: Interpretive Data Fasting glucose >/= [...] Calcium 8.1(L) 8.5 - 10.3 mg/dL [facility] Blood 12/10/2024 8:09 PM CDT 12/10/2024 8:18 PM CDT Meño Yeager MD LAB BLOOD ORDERABLES Final Result [facility] Department [place] [address] * POCT glucose (12/10/2024 8:07 PM CDT) [facility] Signature Glucose, POC 95 70 - 199 mg/dL Blood 12/10/2024 8:07 PM CDT 12/10/2024 8:07 PM CDT Meño Yeager MD LAB POCT ORDERABLES - DEVICE Final Result [facility] [place] [address] * XR Chest 1 View (12/10/2024 6:49 [...] * POCT glucose (12/10/2024 5:04 PM CDT) [facility] Signature Glucose, POC 128 70 - 199 mg/dL Blood 12/10/2024 5:04 PM CDT 12/10/2024 5:04 PM CDT us Meño Yeager MD LAB POCT ORDERABLES - DEVICE Final Result [facility] [place] [address] * TRANSTHORACIC ECHO (TTE) COMPLETE W DOPPLER/CF W CONTRAST (12/10/2024 3:53 PM CDT) Anatomical Region Laterality Modality Ultrasound 12/10/2024 2:28 PM CDT Narrative 12/10/2024 6:[address] [facility] [place] [address] Transthoracic Echocardiographic Report Patient Name: JAI TO W : 1945 (79y 4m) Gender: M Study Date: 12/10/2024 02:28:47 PM Ht(Inch): 70 Wt(Lb): 307.98 BSA: 2.63 State Wildlife Officer: Елена Monge RDCS Location: [id number] Order Provider: MEÑO YEAGER BMI: 44.19 BP: 127 / 91 Ref Provider: MEÑO YEAGER - PROCEDURES: Echocardiographic Report: Transthoracic complete echo [...] Procedure Note Severo Carlin MD - 12/10/2024 [facility] [place] [place] [address] Transthoracic Echocardiographic Report Patient Name: JAI TO W : 1945 (79y 4m) Gender: M Study Date: 12/10/2024 02:28:47 PM Ht(Inch): 70 Wt(Lb): 307.98 BSA: 2.63 State Wildlife Officer: Елена Monge RDCS Location: [id number] Order Provider:MEÑO YEAGER BMI: 44.19 BP: 127 / 91 Ref Provider: MEÑO YEAGER - PROCEDURES: Echocardiographic Report: Transthoracic complete echo [...] Severo Carlin MD 12/10/2024 6:07:46 PM CDT us Meño Yaeger MD CV ECHO PROCEDURES F inal Result * (ABNORMAL) POCT glucose (12/10/2024 11:38 AM CDT) Glucose, POC 240(H) 70 - 199 mg/dL Blood 12/10/2024 11:3 8 AM CDT 12/10/2024 11:38 AM CDT Meño Yeager MD LAB POCT ORDERABLES - DEVICE Final Result Performing Organization Address [facility] de Phone Number [facility] [place] [place] [address] * (ABNORMAL) POCT glucose (12/10/2024 9:09 AM CDT) Glucose, POC 222(H) 70 - 199 mg/dL Blood 12/10/2024 9:09 AM CDT 12/10/2024 9:09 AM CDT Meño Yeager MD LAB POCT ORDERABLES - DEVICE Final Result Performing Organization Address [facility] de Phone Number [facility] [place] [employer] [address] * Critical Care (12/10/2024 8:59 AM CDT) [...] plan with the ICU team and other medical/consultant technology staff, making frequent assessments and decisions regarding [...] AM CDT 12/10/2024 7:39 AM CDT Meño Yeager MD LAB POCT ORDERABLES - DEVICE Final Result Performing Organization Address [facility] Co de Phone Number [facility] Department [place] [address] * POCT glucose (12/10/2024 2:24 AM CDT) Glucose, POC 163 70 - 199 mg/dL Blood 12/10/2024 2:24 AM CDT 12/10/2024 2:24 AM CDT Meño Yeager MD LAB POCT ORDERABLES - DEVICE Final Result Performing Organization Address [facility] Co de Phone Number [facility] Department [place] [address] * (ABNORMAL) eGFR (12/09/2024 11:23 PM CDT) [...] 3 PM CDT 12/10/2024 12:22 AM CDT us Meño Yeager MD LAB BLOOD ORDERABLES Final Result [facility] Department [place] [address] * (ABNORMAL) Protime-INR (12/09/2024 11:23 PM CDT) PT 14.8(H) 9.7 - 13.0 sec INR 1.36(H) 0.90 - 1.20 [facility] Comment: Interpretive data Oral anticoagulant therapeutic ranges: Venous thromboembolism prophylaxis or treatment: 2.0-3.0 CARDIOLOGY Standard range: 2.0-3.0 High-intensity range: 2.5-3.5 Refer to indication-specific guidelines for appropriate target ranges for prosthetic heart valve replacement. Current interpretive data was last revised on 2019. Blood 12/09/2024 11:2 3 PM CDT 12/10/2024 12:13 AM CDT Meño Yeager MD LAB BLOOD ORDERABLES Final Result Performing Organization Address City/[facility]/ZIP Co de Phone Number [facility] Department [place] [address] * (ABNORMAL) CBC without differential (12/09/2024 11:23 PM CDT) WBC 13.07(H) 3.80 - 9.90 K/cumm Hgb 7.8(L) 13.0 - 17.5 g/dL [facility] Hct 23.4(L) 38.9 - 50.3 % [facility] Plt 271 150 - 400 K/cumm [facility] MPV 9.8 9.1 - 12.3 fL [facility] RBC 2.51(L) 4.30 - 5.80 M/cumm [facility] MCV 93.2 81.3 - 96.4 fL [facility] MCH 31.1 27.1 - 33.3 pg [facility] MCHC 33.3 32.3 - 35.7 g/dL [facility] RDW CV 14.7 11.1 - 14.9 % [facility] RDW SD 48.8(H) 35.7 - 48.1 fL [facility] NRBC abs 0.00 0.00 - 0.01 K/cumm [facility] Blood 12/09/2024 11:2 3 PM CDT 12/10/2024 12:09 AM CDT Meño Yeager MD LAB BLOOD ORDERABLES Final Result [facility] Department [place] [address] * Phosphorus (12/09/2024 11:23 PM CDT) Phosphorus, pl 4.0 2.3 - 4.5 mg/dL Blood 12/09/2024 11:2 3 PM CDT 12/10/2024 Meño Yeager MD LAB BLOOD ORDERABLES Final Result [facility] [place] [address] * (ABNORMAL) Magnesium (12/09/2024 11:23 PM CDT) Pathologist [facility] Magnesium 2.9(H) 1.4 - 2.5 mg/dL Blood 12/09/2024 11:2 3 PM CDT 12/10/2024 Meño Yeager MD LAB BLOOD ORDERABLES Final Result Performing Organization Address [facility] Co de Phone Number [facility] [place] [address] * (ABNORMAL) Basic metabolic panel (12/09/2024 11:23 PM CDT) Pathologist [facility] Sodium 140 135 - 145 mmol/L Potassium, pl 4.6 3.3 - 4.9 mmol/L [facility] Chloride 108 97 - 110 mmol/L [facility] CO2 24 22 - 32 mmol/L [facility] Anion gap 8 2 - 15 mmol/L [facility] BUN 50(H) 6 - 25 mg/dL [facility] Creatinine 1.57(H) 0.80 - 1.30 mg/dL [facility] Glucose 112 70 - 199 mg/dL [facility] Comment: Interpretive Data Fasting glucose >/= [...] Calcium 8.2(L) 8.5 - 10.3 mg/dL [facility] Blood 12/09/2024 11:2 3 PM CDT 12/10/2024 Meño Yeager MD LAB BLOOD ORDERABLES Final Result Performing Organization Address City/[facility]/ZIP Co de Phone Number [facility] [place] [address] * POCT glucose (12/09/2024 8:28 PM CDT) [facility] Signature Glucose, POC 175 70 - 199 mg/dL Blood 12/09/2024 8:28 PM CDT 12/09/2024 8:28 PM CDT Meño Yeager MD LAB POCT ORDERABLES - DEVICE Final Result Performing Organization Address [facility] Co de Phone Number [facility] Department [place] [address] * XR Chest 1 View (12/09/2024 8:16 [...] PM CDT 12/09/2024 7:01 PM CDT Meño Yeager MD LAB POCT ORDERABLES - DEVICE Final Result [facility] Department [place] [address] * (ABNORMAL) POCT glucose (12/09/2024 5:22 PM CDT) Glucose, POC 219(H) 70 - 199 mg/dL Blood 12/09/2024 5:22 PM CDT 12/09/2024 5:22 PM CDT Meño Yeager MD LAB POCT ORDERABLES - DEVICE Final Result [facility] Department [place] [address] * (ABNORMAL) POCT glucose (12/09/2024 2:07 PM CDT) Glucose, POC 260(H) 70 - 199 mg/dL Blood 12/09/2024 2:07 PM CDT 12/09/2024 2:07 PM CDT Meño Yeager MD LAB POCT ORDERABLES - DEVICE Final Result Performing Organization Address [facility] de Phone Number [facility] Department [place] [address] * (ABNORMAL) POCT glucose (12/09/2024 12:12 PM CDT) Glucose, POC 325(H) 70 - 199 mg/dL Blood 12/09/2024 12:1 2 PM CDT 12/09/2024 12:12 PM CDT Meño Yeager MD LAB POCT ORDERABLES - DEVICE Final Result Performing Organization Address [facility] de Phone Number [facility] [place] [address] * Critical Care (12/09/2024 8:00 AM CDT) [...] plan with the ICU team and other medical/consultant technology staff, making frequent assessments and decisions regarding [...] AM CDT 12/09/2024 7:50 AM CDT Meño Yeager MD LAB POCT ORDERABLES - DEVICE Final Result Performing Organization Address [facility] Co de Phone Number [facility] Department [place] [address] * POCT glucose (12/09/2024 1:40 AM CDT) Glucose, POC 164 70 - 199 mg/dL Blood 12/09/2024 1:40 AM CDT 12/09/2024 1:40 AM CDT Meño Yeager MD LAB POCT ORDERABLES - DEVICE Final Result Performing Organization Address [facility]/ZIP Co de Phone Number [facility] [place] [address] * (ABNORMAL) eGFR (12/09/2024 12:01 AM CDT) [...] AM CDT 12/09/2024 12:39 AM CDT Meño Yeager MD LAB BLOOD ORDERABLES Final Result [facility] [place] [address] * (ABNORMAL) Protime-INR (12/09/2024 12:01 AM CDT) PT 14.6(H) 9.7 - 13.0 sec INR 1.34(H) 0.90 - 1.20 [facility] Comment: Interpretive data Oral anticoagulant therapeutic ranges: Venous thromboembolism prophylaxis or treatment: 2.0-3.0 CARDIOLOGY Standard range: 2.0-3.0 High-intensity range: 2.5-3.5 Refer to indication-specific guidelines for appropriate target ranges for prosthetic heart valve replacement. Current interpretive data was last revised on 2019. Blood 12/09/2024 12:0 1 AM CDT 12/09/2024 12:17 AM CDT Meño Yeager MD LAB BLOOD ORDERABLES Final Result [facility] Department [place] [address] * (ABNORMAL) CBC without differential (12/09/2024 12:01 AM CDT) WBC 12.53(H) 3.80 - 9.90 K/cumm Hgb 7.7(L) 13.0 - 17.5 g/dL [facility] Hct 22.8(L) 38.9 - 50.3 % [facility] Plt 248 150 - 400 K/cumm [facility] MPV 9.6 9.1 - 12.3 fL [facility] RBC 2.45(L) 4.30 - 5.80 M/cumm [facility] MCV 93.1 81.3 - 96.4 fL [facility] MCH 31.4 27.1 - 33.3 pg [facility] MCHC 33.8 32.3 - 35.7 g/dL [facility] RDW CV 14.6 11.1 - 14.9 % [facility] RDW SD 48.7(H) 35.7 - 48.1 fL [facility] NRBC abs 0.00 0.00 - 0.01 K/cumm [facility] Blood 12/09/2024 12:0 1 AM CDT 12/09/2024 12:20 AM CDT Meño Yeager MD LAB BLOOD ORDERABLES Final Result [facility] [place] [address] * Phosphorus (12/09/2024 12:01 AM CDT) Pathologist [facility] Phosphorus, pl 3.3 2.3 - 4.5 mg/dL Blood 12/09/2024 12:0 1 AM CDT 12/09/2024 12:29 AM CDT Meño Yeager MD LAB BLOOD ORDERABLES Final Result Performing Organization Address City/[facility]/ZIP Co de Phone Number [facility] Department [place] [address] * (ABNORMAL) Magnesium (12/09/2024 12:01 AM CDT) Pathologist [facility] Magnesium 2.8(H) 1.4 - 2.5 mg/dL Blood 12/09/2024 12:0 1 AM CDT 12/09/2024 12:29 AM CDT Meño Yeager MD LAB BLOOD ORDERABLES Final Result Performing Organization Address City/[facility] Co de Phone Number [facility] [place] [address] * (ABNORMAL) Basic metabolic panel (12/09/2024 12:01 AM CDT) Pathologist [facility] Sodium 141 135 - 145 mmol/L Potassium, pl 4.4 3.3 - 4.9 mmol/L [facility] Chloride 110 97 - 110 mmol/L [facility] CO2 23 22 - 32 mmol/L [facility] Anion gap 8 2 - 15 mmol/L [facility] BUN 50(H) 6 - 25 mg/dL [facility] Creatinine 1.66(H) 0.80 - 1.30 mg/dL [facility] Glucose 163 70 - 199 mg/dL [facility] Comment: Interpretive Data Fasting glucose >/= [...] Calcium 7.8(L) 8.5 - 10.3 mg/dL [facility] Blood 12/09/2024 12:0 1 AM CDT 12/09/2024 12:29 AM CDT Meño Yeager MD LAB BLOOD ORDERABLES Final Result [facility] Department [place] [address] * (ABNORMAL) POCT glucose (12/08/2024 9:08 PM CDT) [facility] Signature Glucose, POC 234(H) 70 - 199 mg/dL Blood 12/08/2024 9:08 PM CDT 12/08/2024 9:08 PM CDT Meño Yeager MD LAB POCT ORDERABLES - DEVICE Final Result Performing Organization Address City/[facility] Co de Phone Number [facility] Department [place] [address] * XR Chest 1 View (12/08/2024 8:42 [...] Potassium, whole blood (12/08/2024 8:19 PM CDT) [facility] Potassium, bld 4.3 3.3 - 4.9 mmol/L Blood 12/08/2024 8:19 PM CDT 12/08/2024 8:23 PM CDT Meño Yeager MD LAB BLOOD ORDERABLES Final Result [facility] [place] [address] * (ABNORMAL) POCT glucose (12/08/2024 8:17 PM CDT) Glucose, POC 221(H) 70 - 199 mg/dL Blood 12/08/2024 8:17 PM CDT 12/08/2024 8:17 PM CDT Meño Yeager MD LAB POCT ORDERABLES - DEVICE Final Result Performing Organization Address [facility] Co de Phone Number [facility] [place] [address] * (ABNORMAL) POCT glucose (12/08/2024 3:25 PM CDT) Glucose, POC 334(H) 70 - 199 mg/dL Blood 12/08/2024 3:25 PM CDT 12/08/2024 3:25 PM CDT Meño Yeager MD LAB POCT ORDERABLES - DEVICE Final Result Performing Organization Address [facility] de Phone Number [facility] [place] [address] * Potassium, whole blood (12/08/2024 12:12 PM CDT) Potassium, bld 4.8 3.3 - 4.9 mmol/L Blood 12/08/2024 12:1 2 PM CDT 12/08/2024 12:26 PM CDT Result [facility] Meño Yeager MD LAB BLOOD ORDERABLES Final Result Performing Organization Address [facility] Co de Phone Number [facility] Department [place] [address] * (ABNORMAL) POCT glucose (12/08/2024 12:12 PM CDT) Glucose, POC 330(H) 70 - 199 mg/dL Blood 12/08/2024 12:1 2 PM CDT 12/08/2024 12:12 PM CDT Meño Yeager MD LAB POCT ORDERABLES - DEVICE Final Result Performing Organization Address [facility] Co de Phone Number [facility] [place] [address] * Critical Care (12/08/2024 8:00 AM CDT) [...] plan with the ICU team and other medical/consultant technology staff, making frequent assessments and decisions regarding [...] POC 249(H) 70 - 199 mg/dL Comment:Glu2: RN/ Notified Glucose comment 1 Glu2: RN/MD Notified [facility] Blood 12/08/2024 7:50 AM CDT 12/08/2024 7:50 AM CDT Meño Yeager MD LAB POCT ORDERABLES - DEVICE Final Result Performing Organization Address [facility] Co de Phone Number [facility] [place] [address] * (ABNORMAL) POCT glucose (12/08/2024 6:03 AM CDT) Glucose, POC 233(H) 70 - 199 mg/dL Blood 12/08/2024 6:03 AM CDT 12/08/2024 6:03 AM CDT Meño Yeager MD LAB POCT ORDERABLES - DEVICE Final Result Performing Organization Address [facility] de Phone Number [facility] [place] [address] * (ABNORMAL) POCT glucose (12/08/2024 3:47 AM CDT) Glucose, POC 252(H) 70 - 199 mg/dL Blood 12/08/2024 3:47 AM CDT 12/08/2024 3:47 AM CDT Meño Yeager MD LAB POCT ORDERABLES - DEVICE Final Result Performing Organization Address [facility] [place] [address] * POCT glucose (12/08/2024 1:58 AM CDT) Glucose, POC 186 70 - 199 mg/dL Blood 12/08/2024 1:58 AM CDT 12/08/2024 1:58 AM CDT Mñeo Yeager MD LAB POCT ORDERABLES - DEVICE Final Result [facility] [place] [address] * Infection Prevention Nuvia auris PCR, surveillance Axilla/Groin (12/08/2024 12:55 AM CDT) Nuvia auris DNA Not Detected Not Detected [facility] Comment: Interpretive Data Testing performed by [facility] using the Matt marie 6800 Nuvia auris assay. This assay detects DNA from Nuvia auris using Real-Time PCR. This assay is laboratory developed and is not cleared by the [facility] Food and Drug Administration. The performance characteristics have been verified by the [facility]. Axilla/Groin 12/08/2024 12:5 5 AM CDT 12/08/2024 2:45 AM CDT Narrative [facility] - 12/08/2024 1:17 PM CDT Order placed by OPA due to ring surveillance. Instant Order Generic Provider LAB MICROBIOLOGY - GENERAL ORDERABLES Final Result Performing Organization Address [facility] Co de Phone Number [facility] [place] [address] [facility] * Potassium, whole blood (12/08/2024 12:17 AM CDT) Pathologist [facility] Potassium, bld 4.5 3.3 - 4.9 mmol/L Blood 12/08/2024 12:1 7 AM CDT 12/08/2024 12:26 AM CDT Meño Yeager MD LAB BLOOD ORDERABLES Final Result Performing Organization Address City/[facility]/ZIP Co de Phone Number [facility] Department [place] [address] * (ABNORMAL) eGFR (12/08/2024 12:17 AM CDT) [facility] eGFR 42(L) >=60 mL/min/1. 73 m2 Comment: [...] CDT 12/08/2024 12:34 AM CDT us Meño Yeager MD LAB BLOOD ORDERABLES Final Result [facility] Department [place] [address] * (ABNORMAL) CBC without differential (12/08/2024 12:17 AM CDT) [facility] WBC 11.40(H) 3.80 - 9.90 K/cumm Hgb 8.0(L) 13.0 - 17.5 g/dL [facility] Hct 23.4(L) 38.9 - 50.3 % [facility] Plt 230 150 - 400 K/cumm [facility] MPV 9.9 9.1 - 12.3 fL [facility] RBC 2.55(L) 4.30 - 5.80 M/cumm [facility] MCV 91.8 81.3 - 96.4 fL [facility] MCH 31.4 27.1 - 33.3 pg [facility] MCHC 34.2 32.3 - 35.7 g/dL [facility] RDW CV 14.4 11.1 - 14.9 % [facility] RDW SD 47.2 35.7 - 48.1 fL [facility] NRBC abs 0.00 0.00 - 0.01 K/cumm [facility] Blood 12/08/2024 12:1 7 AM CDT 12/08/2024 12:34 AM CDT Meño Yeager MD LAB BLOOD ORDERABLES Final Result Performing Organization Address City/[facility] Co de Phone Number [facility] Department [place] [address] * Type and screen (12/08/2024 12:17 AM CDT) ABO Rh A Positive Terry, indirect Negative [facility] Blood 12/08/2024 12:1 7 AM CDT 12/08/2024 12:47 AM CDT Narrative [facility] - 12/08/2024 1:58 AM CDT Has the patient had Daratumumab or Isatuximab in the past 6 months?->Unknown Meño Yeager MD LAB BLOOD BANK TEST ORDERABLES Final Result Performing Organization Address City/[facility] Co de Phone Number [facility] Department [place] [address] * Phosphorus (12/08/2024 12:17 AM CDT) Phosphorus, pl 2.6 2.3 - 4.5 mg/dL Blood 12/08/2024 12:1 7 AM CDT 12/08/2024 12:34 AM CDT Meño Yeager MD LAB BLOOD ORDERABLES Final Result Performing Organization Address City/[facility]/ZIP Co de Phone Number [facility] Department [place] [address] * (ABNORMAL) Magnesium (12/08/2024 12:17 AM CDT) Pathologist [facility] Magnesium 2.8(H) 1.4 - 2.5 mg/dL Blood 12/08/2024 12:1 7 AM CDT 12/08/2024 12:34 AM CDT Meño Yeager MD LAB BLOOD ORDERABLES Final Result [facility] [place] [address] * (ABNORMAL) Basic metabolic panel (12/08/2024 12:17 AM CDT) [facility] Sodium 139 135 - 145 mmol/L Potassium, pl 4.6 3.3 - 4.9 mmol/L [facility] Chloride 105 97 - 110 mmol/L [facility] CO2 24 22 - 32 mmol/L [facility] Anion gap 10 2 - 15 mmol/L [facility] BUN 58(H) 6 - 25 mg/dL [facility] Creatinine 1.65(H) 0.80 - 1.30 mg/dL [facility] Glucose 219(H) 70 - 199 mg/dL [facility] Comment: Interpretive Data Fasting glucose >/= [...] Calcium 7.6(L) 8.5 - 10.3 mg/dL [facility] Blood 12/08/2024 12:1 7 AM CDT 12/08/2024 12:34 AM CDT Meño Yeager MD LAB BLOOD ORDERABLES Final Result Performing Organization Address City/[facility]/ZIP Co de Phone Number [facility] [place] [address] * (ABNORMAL) POCT glucose (12/08/2024 12:15 AM CDT) Glucose, POC 286(H) 70 - 199 mg/dL Blood 12/08/2024 12:1 5 AM CDT 12/08/2024 12:15 AM CDT Meño Yeager MD LAB POCT ORDERABLES - DEVICE Final Result Performing Organization Address [facility] Co de Phone Number [facility] [place] [address] * XR Chest 1 View (12/07/2024 8:46 [...] PM CDT 12/07/2024 8:15 PM CDT Meño Yeager MD LAB POCT ORDERABLES - DEVICE Final Result Performing Organization Address City/[facility]/ZIP Co de Phone Number [facility] Department [place] [address] * (ABNORMAL) POCT glucose (12/07/2024 5:23 PM CDT) Glucose, POC 207(H) 70 - 199 mg/dL Blood 12/07/2024 5:23 PM CDT 12/07/2024 5:23 PM CDT Meño Yeager MD LAB POCT ORDERABLES - DEVICE Final Result [facility] Department [place] [address] * POCT glucose (12/07/2024 3:33 PM CDT) Glucose, POC 182 70 - 199 mg/dL Blood 12/07/2024 3:33 PM CDT 12/07/2024 3:33 PM CDT Meño Yeager MD LAB POCT ORDERABLES - DEVICE Final Result Performing Organization Address [facility] Co de Phone Number [facility] [place] [address] * (ABNORMAL) POCT glucose (12/07/2024 1:51 PM CDT) Glucose, POC 224(H) 70 - 199 mg/dL Blood 12/07/2024 1:51 PM CDT 12/07/2024 1:51 PM CDT Meño Yeager MD LAB POCT ORDERABLES - DEVICE Final Result Performing Organization Address [facility] Co de Phone Number [facility] [place] [address] * Potassium, whole blood (12/07/2024 12:12 PM CDT) Pathologist [facility] Potassium, bld 4.2 3.3 - 4.9 mmol/L Blood 12/07/2024 12:1 2 PM CDT 12/07/2024 12:19 PM CDT Meño Yeager MD LAB BLOOD ORDERABLES Final Result Performing Organization Address City/[facility] Co de Phone Number [facility] [place] [address] * (ABNORMAL) POCT glucose (12/07/2024 12:09 PM CDT) Glucose, POC 201(H) 70 - 199 mg/dL Blood 12/07/2024 12:0 9 PM CDT 12/07/2024 12:09 PM CDT Meño Yeager MD LAB POCT ORDERABLES - DEVICE Final Result Performing Organization Address City/[facility] Co de Phone Number [facility] Department [place] [address] * (ABNORMAL) POCT glucose (12/07/2024 10:11 AM CDT) Glucose, POC 219(H) 70 - 199 mg/dL Blood 12/07/2024 10:1 1 AM CDT 12/07/2024 10:11 AM CDT Meño Yeager MD LAB POCT ORDERABLES - DEVICE Final Result Performing Organization Address [facility] Co de Phone Number [facility] [place] [address] * Critical Care (12/07/2024 8:00 AM CDT) [...] plan with the ICU team and other medical/consultant technology staff, making frequent assessments and decisions regarding [...] AM CDT 12/07/2024 7:01 AM CDT Meño Yeager MD LAB POCT ORDERABLES - DEVICE Final Result Performing Organization Address City/[facility] Co de Phone Number [facility] Department [place] [address] * POCT glucose (12/07/2024 6:09 AM CDT) Glucose, POC 161 70 - 199 mg/dL Blood 12/07/2024 6:09 AM CDT 12/07/2024 6:09 AM CDT Meño Yeager MD LAB POCT ORDERABLES - DEVICE Final Result Performing Organization Address City/[facility]/ZIP Co de Phone Number [facility] Department [place] [address] * Potassium, whole blood (12/07/2024 4:44 AM CDT) Potassium, bld 4.1 3.3 - 4.9 mmol/L Blood 12/07/2024 4:44 AM CDT 12/07/2024 4:48 AM CDT Meño Yeager MD LAB BLOOD ORDERABLES Final Result Performing Organization Address [facility] Co de Phone Number [facility] [place] [address] * Calcium, ionized, whole blood (12/07/2024 4:44 AM CDT) Ca, ionized, bld 4.50 4.50 - 5.10 mg/dL Blood 12/07/2024 4:44 AM CDT 12/07/2024 4:48 AM CDT Meño Yeager MD LAB BLOOD ORDERABLES Final Result Performing Organization Address [facility] Co de Phone Number [facility] [place] [address] * POCT glucose (12/07/2024 4:44 AM CDT) Glucose, POC 147 70 - 199 mg/dL Blood 12/07/2024 4:44 AM CDT 12/07/2024 4:44 AM CDT Result [facility] Meño Yeager MD LAB POCT ORDERABLES - DEVICE Final Result Performing Organization Address City/[facility] Co de Phone Number [facility] [place] [address] * POCT glucose (12/07/2024 3:57 AM CDT) Glucose, POC 145 70 - 199 mg/dL Blood 12/07/2024 3:57 AM CDT 12/07/2024 3:57 AM CDT us Meño Yeager MD LAB POCT ORDERABLES - DEVICE Final Result Performing Organization Address City/[facility]/ZIP Co de Phone Number [facility] [place] [employer] [address] * POCT glucose (12/07/2024 3:02 AM CDT) Glucose, POC 94 70 - 199 mg/dL Blood 12/07/2024 3:02 AM CDT 12/07/2024 3:02 AM CDT Meño Yeager MD LAB POCT ORDERABLES - DEVICE Final Result Performing Organization Address [facility] Co de Phone Number [facility] [place] [address] * POCT glucose (12/07/2024 2:05 AM CDT) Glucose, POC 101 70 - 199 mg/dL Blood 12/07/2024 2:05 AM CDT 12/07/2024 2:05 AM CDT Meño Yeager MD LAB POCT ORDERABLES - DEVICE Final Result Performing Organization Address City/[facility] Co de Phone Number [facility] [place] [address] * POCT glucose (12/07/2024 1:03 AM CDT) Glucose, POC 122 70 - 199 mg/dL Blood 12/07/2024 1:03 AM CDT 12/07/2024 1:03 AM CDT Meño Yeager MD LAB POCT ORDERABLES - DEVICE Final Result Performing Organization Address City/[facility]/ZIP Co de Phone Number [facility] [place] [address] * Potassium, whole blood (12/07/2024 12:30 AM CDT) Potassium, bld 3.8 3.3 - 4.9 mmol/L Blood 12/07/2024 12:3 0 AM CDT 12/07/2024 12:40 AM CDT Meño Yeager MD LAB BLOOD ORDERABLES Final [place] [address] * (ABNORMAL) eGFR (12/07/2024 12:30 AM CDT) eGFR 36(L) >=60 mL/min/1. 73 m2 [...] AM CDT 12/07/2024 12:49 AM CDT Meño Yeager MD LAB BLOOD ORDERABLES Final Result [facility] [place] [address] * (ABNORMAL) CBC without differential (12/07/2024 12:30 AM CDT) [facility] WBC 9.80 3.80 - 9.90 K/cumm Hgb 7.9(L) 13.0 - 17.5 g/dL [facility] Hct 23.7(L) 38.9 - 50.3 % [facility] Plt 212 150 - 400 K/cumm [facility] MPV 9.8 9.1 - 12.3 fL [facility] RBC 2.57(L) 4.30 - 5.80 M/cumm [facility] MCV 92.2 81.3 - 96.4 fL [facility] MCH 30.7 27.1 - 33.3 pg [facility] MCHC 33.3 32.3 - 35.7 g/dL [facility] RDW CV 14.3 11.1 - 14.9 % [facility] RDW SD 47.5 35.7 - 48.1 fL [facility] NRBC abs 0.02(H) 0.00 - 0.01 K/cumm [facility] Blood 12/07/2024 12:3 0 AM CDT 12/07/2024 12:48 AM CDT us Meño Yeager MD LAB BLOOD ORDERABLES Final Result Performing Organization Address City/[facility]/ZIP Co de Phone Number [facility] Department [place] [address] * Phosphorus (12/07/2024 12:30 AM CDT) [facility] Phosphorus, pl 2.8 2.3 - 4.5 mg/dL Blood 12/07/2024 12:3 0 AM CDT 12/07/2024 12:49 AM CDT Meño Yeager MD LAB BLOOD ORDERABLES Final Result [facility] Department [place] [address] * (ABNORMAL) Magnesium (12/07/2024 12:30 AM CDT) Magnesium 2.8(H) 1.4 - 2.5 mg/dL Blood 12/07/2024 12:3 0 AM CDT 12/07/2024 12:49 AM CDT Meño Yeager MD LAB BLOOD ORDERABLES Final Result [facility] Department [place] [address] * (ABNORMAL) Basic metabolic panel (12/07/2024 12:30 AM CDT) Pathologist [facility] Sodium 142 135 - 145 mmol/L Potassium, pl 3.8 3.3 - 4.9 mmol/L [facility] Chloride 110 97 - 110 mmol/L [facility] CO2 26 22 - 32 mmol/L [facility] Anion gap 6 2 - 15 mmol/L [facility] BUN 70(H) 6 - 25 mg/dL [facility] Creatinine 1.88(H) 0.80 - 1.30 mg/dL [facility] Glucose 93 70 - 199 mg/dL [facility] Comment: Interpretive Data Fasting glucose >/= [...] Calcium 8.0(L) 8.5 - 10.3 mg/dL [facility] Blood 12/07/2024 12:3 0 AM CDT 12/07/2024 12:49 AM CDT us Meño Yeager MD LAB BLOOD ORDERABLES Final Result Performing Organization Address City/[facility]/ZIP Co de Phone Number [facility] [place] [address] * POCT glucose (12/06/2024 11:52 PM CDT) Glucose, POC 107 70 - 199 mg/dL Blood 12/06/2024 11:5 2 PM CDT 12/06/2024 11:52 PM CDT us Meño Yeager MD LAB POCT ORDERABLES - DEVICE Final Result Performing Organization Address [facility] Co de Phone Number [facility] [place] [address] * POCT glucose (12/06/2024 11:01 PM CDT) Glucose, POC 112 70 - 199 mg/dL Blood 12/06/2024 11:0 1 PM CDT 12/06/2024 11:01 PM CDT us Meño Yeager MD LAB POCT ORDERABLES - DEVICE Final Result Performing Organization Address City/[facility] Co de Phone Number [facility] [place] [address] * POCT glucose (12/06/2024 10:02 PM CDT) Glucose, POC 117 70 - 199 mg/dL Blood 12/06/2024 10:0 2 PM CDT 12/06/2024 10:02 PM CDT Meño Yeager MD LAB POCT ORDERABLES - DEVICE Final Result Performing Organization Address City/[facility] Co de Phone Number [facility] [place] [address] * POCT glucose (12/06/2024 9:16 PM CDT) Glucose, POC 143 70 - 199 mg/dL Blood 12/06/2024 9:16 PM CDT 12/06/2024 9:16 PM CDT Meño Yeager MD LAB POCT ORDERABLES - DEVICE Final Result Performing Organization Address [facility] [place] [address] * POCT glucose (12/06/2024 8:07 PM CDT) Glucose, POC 142 70 - 199 mg/dL Blood 12/06/2024 8:07 PM CDT 12/06/2024 8:07 PM CDT Meño Yeager MD LAB POCT ORDERABLES - DEVICE Final Result Performing Organization Address [facility] [place] [address] * XR Chest 1 View (12/06/2024 7:35 [...] 6:16 PM CDT 12/06/2024 6:16 PM CDT Result [facility] Meño Yeager MD LAB POCT ORDERABLES - DEVICE Final Result Performing Organization Address City/[facility] Co de Phone Number [facility] Department [place] [address] * (ABNORMAL) POCT glucose (12/06/2024 5:24 PM CDT) Glucose, POC 219(H) 70 - 199 mg/dL Blood 12/06/2024 5:24 PM CDT 12/06/2024 5:24 PM CDT Result [facility] Meño Yeager MD LAB POCT ORDERABLES - DEVICE Final Result Performing Organization Address City/[facility] Co de Phone Number [facility] Department [place] [address] * Oxyhemoglobin, central venous (12/06/2024 4:55 PM CDT) Oxyhemoglobin, CV 61.2 % Comment: Interpretive Data No reference range established. Current interpretive data was last revised 2019. Blood 12/06/2024 4:55 PM CDT 12/06/2024 5:03 PM CDT Meño Yeager MD LAB BLOOD ORDERABLES Final Result Performing Organization Address [facility] Co de Phone Number [facility] [place] [address] * Potassium, whole blood (12/06/2024 4:55 PM CDT) Pathologist [facility] Potassium, bld 4.1 3.3 - 4.9 mmol/L Blood 12/06/2024 4:55 PM CDT 12/06/2024 5:03 PM CDT Meño Yeager MD LAB BLOOD ORDERABLES Final Result Performing Organization Address [facility] Co de Phone Number [facility] Department [place] [address] * ECG 12 lead (12/06/2024 3:15 PM CDT) Pathologist [facility] Ventricular Rate EKG/Min 89 BPM [facility] Atrial Rate 89 BPM [facility] HI-Interval (MSEC) 262 ms [facility] QRS-Interval (MSEC) 86 ms [facility] QT-Interval (MSEC) 442 ms [facility] QTc 537 ms [facility] P [place] 54 degrees [facility] R [place] -1 degrees [facility] T [place] 19 degrees [facility] Diagnosis Atrial-paced rhythm with prolonged AV conduction T wave abnormality, consider inferior ischemia Prolonged QT Abnormal ECG Confirmed by Jasmina PIKE, Jayesh ([id number]) on 12/07/2024 10:40:07 AM [facility] 12/06/2024 3:15 PM CDT 12/07/2024 10:40 AM CDT Meño eYager MD ECG ORDERABLES Caro l Result Performing Organization Address City/[facility]/ZIP Co de Phone Number [facility] * (ABNORMAL) POCT glucose (12/06/2024 2:52 PM CDT) Glucose, POC 235(H) 70 - 199 mg/dL Blood 12/06/2024 2:52 PM CDT 12/06/2024 2:52 PM CDT us Meño Yeager MD LAB POCT ORDERABLES - DEVICE Final Result [facility] [place] [address] * (ABNORMAL) POCT glucose (12/06/2024 1:14 PM CDT) Glucose, POC 237(H) 70 - 199 mg/dL Blood 12/06/2024 1:14 PM CDT 12/06/2024 1:14 PM CDT Meño Yeager MD LAB POCT ORDERABLES - DEVICE Final Result Performing Organization Address City/[facility]/ZIP Co de Phone Number [facility] Department [place] [address] * (ABNORMAL) POCT glucose (12/06/2024 1:12 PM CDT) Glucose, POC 391(H) 70 - 199 mg/dL Blood 12/06/2024 1:12 PM CDT 12/06/2024 1:12 PM CDT Meño Yeager MD LAB POCT ORDERABLES - DEVICE Final Result Performing Organization Address City/[facility]/ZIP Co de Phone Number [facility] [place] [address] * (ABNORMAL) POCT glucose (12/06/2024 12:23 PM CDT) Glucose, POC 244(H) 70 - 199 mg/dL Blood 12/06/2024 12:2 3 PM CDT 12/06/2024 12:23 PM CDT us Meño Yeager MD LAB POCT ORDERABLES - DEVICE Final Result Performing Organization Address [facility] de Phone Number [facility] [place] [address] * (ABNORMAL) POCT glucose (12/06/2024 11:01 AM CDT) Glucose, POC 255(H) 70 - 199 mg/dL Blood 12/06/2024 11:0 1 AM CDT 12/06/2024 11:01 AM CDT Meño Yeager MD LAB POCT ORDERABLES - DEVICE Final Result Performing Organization Address [facility] de Phone Number [facility] [place] [address] * ECG 12 lead (12/06/2024 10:45 AM CDT) Ventricular Rate EKG/Min 63 BPM [facility] Atrial Rate 63 BPM [facility] HI-Interval (MSEC) 160 ms [facility] QRS-Interval (MSEC) 92 ms [facility] QT-Interval (MSEC) 450 ms [facility] QTc 460 ms [facility] P [place] 66 degrees [facility] R [place] 5 degrees [facility] T [place] 5 degrees [facility] Diagnosis Normal sinus rhythm Nonspecific T wave abnormality Prolonged QT Abnormal ECG No previous ECGs available Confirmed by Jayesh Freedman MD ([id number]) on 12/07/2024 10:44:18 AM [facility] 12/06/2024 10:4 5 AM CDT 12/07/2024 10:44 AM CDT Meño Yeager MD ECG ORDERABLES Caro l Result [facility] * (ABNORMAL) POCT glucose (12/06/2024 10:10 AM CDT) Glucose, POC 232(H) 70 - 199 mg/dL Blood 12/06/2024 10:1 0 AM CDT 12/06/2024 10:10 AM CDT us Meño Yeager MD LAB POCT ORDERABLES - DEVICE Final Result Performing Organization Address [facility] Co de Phone Number [facility] [place] [address] * (ABNORMAL) POCT glucose (12/06/2024 9:01 AM CDT) Glucose, POC 222(H) 70 - 199 mg/dL Blood 12/06/2024 9:01 AM CDT 12/06/2024 9:01 AM CDT Meño Yeager MD LAB POCT ORDERABLES - DEVICE Final Result Performing Organization Address [facility] de Phone Number [facility] Department [place] [address] * POCT glucose (12/06/2024 8:02 AM CDT) Glucose, POC 158 70 - 199 mg/dL Blood 12/06/2024 8:02 AM CDT 12/06/2024 8:02 AM CDT Meño Yeager MD LAB POCT ORDERABLES - DEVICE Final Result Performing Organization Address [facility] Co de Phone Number [facility] [place] [address] * Critical Care (12/06/2024 8:00 AM CDT) [...] plan with the ICU team and other medical/consultant technology staff, making frequent assessments and decisions regarding [...] CDT 12/06/2024 6:41 AM CDT us Meño Yeager MD LAB POCT ORDERABLES - DEVICE Final Result Performing Organization Address [facility] [place] [address] * POCT glucose (12/06/2024 5:02 AM CDT) Glucose, POC 176 70 - 199 mg/dL Blood 12/06/2024 5:02 AM CDT 12/06/2024 5:02 AM CDT Meño Yeager MD LAB POCT ORDERABLES - DEVICE Final Result Performing Organization Address [facility] de Phone Number [facility] [place] [address] * Potassium, whole blood (12/06/2024 3:46 AM CDT) Potassium, bld 4.4 3.3 - 4.9 mmol/L Blood 12/06/2024 3:46 AM CDT 12/06/2024 4:00 AM CDT Meño Yeager MD LAB BLOOD ORDERABLES Final Result Performing Organization Address [facility] Co de Phone Number [facility] [place] [address] * POCT glucose (12/06/2024 3:46 AM CDT) Glucose, POC 185 70 - 199 mg/dL Blood 12/06/2024 3:46 AM CDT 12/06/2024 3:46 AM CDT Meño Yeager MD LAB POCT ORDERABLES - DEVICE Final Result Performing Organization Address [facility]/ZIP Co de Phone Number [facility] [place] [address] * POCT glucose (12/06/2024 2:35 AM CDT) Glucose, POC 179 70 - 199 mg/dL Blood 12/06/2024 2:35 AM CDT 12/06/2024 2:35 AM CDT Meño Yeager MD LAB POCT ORDERABLES - DEVICE Final Result Performing Organization Address [facility] Co de Phone Number [facility] [place] [address] * POCT glucose (12/06/2024 1:22 AM CDT) Pathologist [facility] Glucose, POC 187 70 - 199 mg/dL Blood 12/06/2024 1:22 AM CDT 12/06/2024 1:22 AM CDT Meño Yeager MD LAB POCT ORDERABLES - DEVICE Final Result Performing Organization Address [facility] de Phone Number [facility] [place] [address] * Potassium, whole blood (12/06/2024 12:27 AM CDT) [facility] Potassium, bld 3.7 3.3 - 4.9 mmol/L Blood 12/06/2024 12:2 7 AM CDT 12/06/2024 12:37 AM CDT Meño Yeager MD LAB BLOOD ORDERABLES Final Result Performing Organization Address City/[facility] de Phone Number [facility] [place] [address] * (ABNORMAL) eGFR (12/06/2024 12:27 AM CDT) [facility] eGFR 27(L) >=60 mL/min/1. 73 m2 Comment: [...] CDT 12/06/2024 12:50 AM CDT us Meño Yeager MD LAB BLOOD ORDERABLES Final Result [facility] [place] [address] * (ABNORMAL) POCT glucose (12/06/2024 12:27 AM CDT) Glucose, POC 248(H) 70 - 199 mg/dL Blood 12/06/2024 12:2 7 AM CDT 12/06/2024 12:27 AM CDT us Meño Yeager MD LAB POCT ORDERABLES - DEVICE Final Result [facility] [place] [address] * (ABNORMAL) CBC without differential (12/06/2024 12:27 AM CDT) WBC 9.51 3.80 - 9.90 K/cumm Hgb 8.1(L) 13.0 - 17.5 g/dL [facility] Hct 23.7(L) 38.9 - 50.3 % [facility] Plt 217 150 - 400 K/cumm [facility] MPV 10.3 9.1 - 12.3 fL [facility] RBC 2.60(L) 4.30 - 5.80 M/cumm [facility] MCV 91.2 81.3 - 96.4 fL [facility] MCH 31.2 27.1 - 33.3 pg [facility] MCHC 34.2 32.3 - 35.7 g/dL [facility] RDW CV 14.2 11.1 - 14.9 % [facility] RDW SD 47.1 35.7 - 48.1 fL [facility] NRBC abs 0.00 0.00 - 0.01 K/cumm [facility] Blood 12/06/2024 12:2 7 AM CDT 12/06/2024 12:50 AM CDT Meño Yeager MD LAB BLOOD ORDERABLES Final Result [facility] [place] [address] * Phosphorus (12/06/2024 12:27 AM CDT) Phosphorus, pl 2.9 2.3 - 4.5 mg/dL Blood 12/06/2024 12:2 7 AM CDT 12/06/2024 12:50 AM CDT Meño Yeager MD LAB BLOOD ORDERABLES Final Result [facility] [place] [address] * (ABNORMAL) Magnesium (12/06/2024 12:27 AM CDT) Magnesium 2.7(H) 1.4 - 2.5 mg/dL Blood 12/06/2024 12:2 7 AM CDT 12/06/2024 12:50 AM CDT Meño Yeager MD LAB BLOOD ORDERABLES Final Result Performing Organization Address [facility] de Phone Number [facility] [place] [address] * (ABNORMAL) Blood gas, arterial (12/06/2024 12:27 AM CDT) pH, Art 7.45 7.35 - 7.45 PCO2, Arterial 29(L) 35 - 45 mmHg [facility] PO2, Arterial 82(L) 83 - 108 mmHg [facility] HCO3 Art (Calculated) 21 20 - 30 mmol/L [facility] BE, art -2 mmol/L [facility] Comment: Interpretive Data No Reference Range Established Current Interpretive Data was last revised on 2017 O2 Sat Art (Measured) 97(H) 90 - 95 % [facility] Blood 12/06/2024 12:2 7 AM CDT 12/06/2024 12:37 AM CDT Meño Yeager MD LAB BLOOD ORDERABLES Final Result Performing Organization Address [facility] de Phone Number [facility] [place] [address] * (ABNORMAL) Basic metabolic panel (12/06/2024 12:27 AM CDT) Sodium 139 135 - 145 mmol/L Potassium, pl 3.7 3.3 - 4.9 mmol/L [facility] Chloride 107 97 - 110 mmol/L [facility] CO2 22 22 - 32 mmol/L [facility] Anion gap 10 2 - 15 mmol/L [facility] BUN 80(H) 6 - 25 mg/dL [facility] Creatinine 2.41(H) 0.80 - 1.30 mg/dL [facility] Glucose 238(H) 70 - 199 mg/dL [facility] Comment: Interpretive Data Fasting glucose >/= [...] Calcium 8.4(L) 8.5 - 10.3 mg/dL [facility] Blood 12/06/2024 12:2 7 AM CDT 12/06/2024 12:50 AM CDT Result [facility] Meño Yeager MD LAB BLOOD ORDERABLES Final Result Performing Organization Address City/[facility]/ZIP Co de Phone Number [facility] Department [place] [address] * (ABNORMAL) POCT glucose (12/05/2024 11:06 PM CDT) Glucose, POC 270(H) 70 - 199 mg/dL Blood 12/05/2024 11:0 6 PM CDT 12/05/2024 11:06 PM CDT Result [facility] Meño Yeager MD LAB POCT ORDERABLES - DEVICE Final Result [facility] Department [place] [address] * (ABNORMAL) POCT glucose (12/05/2024 10:16 PM CDT) Glucose, POC 308(H) 70 - 199 mg/dL Blood 12/05/2024 10:1 6 PM CDT 12/05/2024 10:16 PM CDT Result [facility] Meño Yeager MD LAB POCT ORDERABLES - DEVICE Final Result Performing Organization Address [facility] Co de Phone Number [facility] [place] [address] * (ABNORMAL) POCT glucose (12/05/2024 9:10 PM CDT) Glucose, POC 306(H) 70 - 199 mg/dL Blood 12/05/2024 9:10 PM CDT 12/05/2024 9:10 PM CDT Meño Yeager MD LAB POCT ORDERABLES - DEVICE Final Result Performing Organization Address [facility] Co de Phone Number [facility] [place] [address] * Potassium, whole blood (12/05/2024 8:07 PM CDT) Potassium, bld 4.1 3.3 - 4.9 mmol/L Blood 12/05/2024 8:07 PM CDT 12/05/2024 8:16 PM CDT Meño Yeager MD LAB BLOOD ORDERABLES Final Result Performing Organization Address [facility] Co de Phone Number [facility] Department [place] [address] * (ABNORMAL) POCT glucose (12/05/2024 8:06 PM CDT) Glucose, POC 310(H) 70 - 199 mg/dL Blood 12/05/2024 8:06 PM CDT 12/05/2024 8:06 PM CDT Meño Yeager MD LAB POCT ORDERABLES - DEVICE Final Result Performing Organization Address [facility] Co de Phone Number [facility] Department [place] [address] * XR Chest 1 View (12/05/2024 8:02 [...] PM CDT 12/05/2024 7:15 PM CDT Meño Yeager MD LAB POCT ORDERABLES - DEVICE Final Result Performing Organization Address City/[facility] Co de Phone Number [facility] [place] [address] * POCT glucose (12/05/2024 5:59 PM CDT) Glucose, POC 150 70 - 199 mg/dL Blood 12/05/2024 5:59 PM CDT 12/05/2024 5:59 PM CDT Meño Yeager MD LAB POCT ORDERABLES - DEVICE Final Result Performing Organization Address [facility] de Phone Number [facility] [place] [address] * (ABNORMAL) POCT glucose (12/05/2024 4:56 PM CDT) Glucose, POC 204(H) 70 - 199 mg/dL Blood 12/05/2024 4:56 PM CDT 12/05/2024 4:56 PM CDT Meño Yeager MD LAB POCT ORDERABLES - DEVICE Final Result Performing Organization Address [facility] de Phone Number [facility] [place] [address] * Potassium, whole blood (12/05/2024 4:54 PM CDT) Potassium, bld 3.7 3.3 - 4.9 mmol/L Blood 12/05/2024 4:54 PM CDT 12/05/2024 5:05 PM CDT Meño Yeager MD LAB BLOOD ORDERABLES Final Result Performing Organization Address [facility] Co de Phone Number [facility] [place] [address] * POCT glucose (12/05/2024 4:07 PM CDT) Glucose, POC 197 70 - 199 mg/dL Blood 12/05/2024 4:07 PM CDT 12/05/2024 4:07 PM CDT Meño Yeager MD LAB POCT ORDERABLES - DEVICE Final Result Performing Organization Address [facility] Co de Phone Number [facility] [place] [address] * POCT glucose (12/05/2024 3:05 PM CDT) Glucose, POC 187 70 - 199 mg/dL Blood 12/05/2024 3:05 PM CDT 12/05/2024 3:05 PM CDT Meño Yeager MD LAB POCT ORDERABLES - DEVICE Final Result Performing Organization Address City/[facility] Co de Phone Number [facility] [place] [address] * POCT glucose (12/05/2024 2:07 PM CDT) Glucose, POC 199 70 - 199 mg/dL Blood 12/05/2024 2:07 PM CDT 12/05/2024 2:07 PM CDT Meño Yeager MD LAB POCT ORDERABLES - DEVICE Final Result Performing Organization Address City/[facility] Co de Phone Number [facility] [place] [address] * POCT glucose (12/05/2024 1:01 PM CDT) Glucose, POC 173 70 - 199 mg/dL Blood 12/05/2024 1:01 PM CDT 12/05/2024 1:01 PM CDT Meño Yeager MD LAB POCT ORDERABLES - DEVICE Final Result Performing Organization Address [facility] Co de Phone Number [facility] [place] [address] * (ABNORMAL) POCT glucose (12/05/2024 12:05 PM CDT) Glucose, POC 209(H) 70 - 199 mg/dL Blood 12/05/2024 12:0 5 PM CDT 12/05/2024 12:05 PM CDT Meño Yeager MD LAB POCT ORDERABLES - DEVICE Final Result Performing Organization Address [facility] Co de Phone Number [facility] [place] [address] * Potassium, whole blood (12/05/2024 12:04 PM CDT) Potassium, bld 4.1 3.3 - 4.9 mmol/L Blood 12/05/2024 12:0 4 PM CDT 12/05/2024 12:10 PM CDT Meño Yeager MD LAB BLOOD ORDERABLES Final Result Performing Organization Address City/[facility]/ZIP Co de Phone Number [facility] [place] [address] * POCT glucose (12/05/2024 10:53 AM CDT) Glucose, POC 148 70 - 199 mg/dL Blood 12/05/2024 10:5 3 AM CDT 12/05/2024 10:53 AM CDT Meño Yeager MD LAB POCT ORDERABLES - DEVICE Final Result Performing Organization Address City/[facility] Co de Phone Number [facility] [place] [address] * POCT glucose (12/05/2024 10:05 AM CDT) Glucose, POC 116 70 - 199 mg/dL Blood 12/05/2024 10:0 5 AM CDT 12/05/2024 10:05 AM CDT Meño Yeager MD LAB POCT ORDERABLES - DEVICE Final Result Performing Organization Address [facility] Co de Phone Number [facility] [place] [address] * POCT glucose (12/05/2024 9:13 AM CDT) Glucose, POC 96 70 - 199 mg/dL Blood 12/05/2024 9:13 AM CDT 12/05/2024 9:13 AM CDT Meño Yeager MD LAB POCT ORDERABLES - DEVICE Final Result Performing Organization Address City/[facility] de Phone Number [facility] [place] [address] * Potassium, whole blood (12/05/2024 8:17 AM CDT) Potassium, bld 3.7 3.3 - 4.9 mmol/L Blood 12/05/2024 8:17 AM CDT 12/05/2024 8:22 AM CDT Meño Yeager MD LAB BLOOD ORDERABLES Final Result Performing Organization Address City/[facility] Co de Phone Number [facility] [place] [address] * POCT glucose (12/05/2024 8:17 AM CDT) Glucose, POC 128 70 - 199 mg/dL Blood 12/05/2024 8:17 AM CDT 12/05/2024 8:17 AM CDT Meño Yeager MD LAB POCT ORDERABLES - DEVICE Final Result Performing Organization Address [facility] Phone Number [facility] [place] [address] * (ABNORMAL) Blood gas, arterial (12/05/2024 8:17 AM CDT) pH, Art 7.47(H) 7.35 - 7.45 PCO2, Arterial 28(L) 35 - 45 mmHg [facility] PO2, Arterial 110(H) 83 - 108 mmHg [facility] HCO3 Art (Calculated) 21 20 - 30 mmol/L [facility] BE, art -2 mmol/L [facility] Comment: Interpretive Data No Reference Range Established Current Interpretive Data was last revised on 2017 O2 Sat Art (Measured) 99(H) 90 - 95 % [facility] Blood 12/05/2024 8:17 AM CDT 12/05/2024 8:22 AM CDT Meño Yeager MD LAB BLOOD ORDERABLES Final Result Performing Organization Address [facility] Co de Phone Number [facility] [place] [address] * Critical Care (12/05/2024 8:00 AM CDT) [...] plan with the ICU team and other medical/consultant technology staff, making frequent assessments and decisions regarding [...] 6:54 AM CDT 12/05/2024 6:54 AM CDT Meño Yeager MD LAB POCT ORDERABLES - DEVICE Final Result Performing Organization Address [facility] Co de Phone Number [facility] [place] [address] * POCT glucose (12/05/2024 6:09 AM CDT) Glucose, POC 159 70 - 199 mg/dL Blood 12/05/2024 6:09 AM CDT 12/05/2024 6:09 AM CDT Meño Yeager MD LAB POCT ORDERABLES - DEVICE Final Result Performing Organization Address [facility] de Phone Number [facility] [place] [address] * (ABNORMAL) POCT glucose (12/05/2024 5:03 AM CDT) Glucose, POC 202(H) 70 - 199 mg/dL Blood 12/05/2024 5:03 AM CDT 12/05/2024 5:03 AM CDT Meño Yeager MD LAB POCT ORDERABLES - DEVICE Final Result Performing Organization Address [facility] de Phone Number [facility] Department [place] [address] * (ABNORMAL) POCT glucose (12/05/2024 4:13 AM CDT) Glucose, POC 219(H) 70 - 199 mg/dL Blood 12/05/2024 4:13 AM CDT 12/05/2024 4:13 AM CDT Meño Yeager MD LAB POCT ORDERABLES - DEVICE Final Result Performing Organization Address [facility] Co de Phone Number [facility] [place] [address] * Infection Prevention Nuvia auris PCR, surveillance Axilla/Groin (12/05/2024 4:10 AM CDT) [facility] Nuvia auris DNA Not Detected Not Detected [facility] Comment: Interpretive Data Testing performed by [facility] using the Matt marie [id number] Nuvia auris assay. This assay detects DNA from Nuvia auris using Real-Time PCR. This assay is laboratory developed and is not cleared by the [place] Food and Drug Administration. The performance characteristics have been verified by the [facility]. Axilla/Groin 12/05/2024 4:10 AM CDT 12/05/2024 6:37 AM CDT Narrative [facility] - 12/05/2024 2:29 PM CDT Order placed by [facility] due to ring surveillance. us Instant Order Generic Provider LAB MICROBIOLOGY - GENERAL ORDERABLES Final Result [facility] [place] [address] [facility] * (ABNORMAL) Calcium, ionized, whole blood (12/05/2024 4:10 AM CDT) [facility] Ca, ionized, bld 4.32(L) 4.50 - 5.10 mg/dL Blood 12/05/2024 4:10 AM CDT 12/05/2024 4:24 AM CDT us Meño Yeager MD LAB BLOOD [place] [address] * (ABNORMAL) Blood gas, arterial (12/05/2024 4:10 AM CDT) [facility] pH, Art 7.45 7.35 - 7.45 PCO2, Arterial 28(L) 35 - 45 mmHg [facility] PO2, Arterial 81(L) 83 - 108 mmHg [facility] HCO3 Art (Calculated) 20 20 - 30 mmol/L [facility] BE, art -4 mmol/L [facility] Comment: Interpretive Data No Reference Range Established Current Interpretive Data was last revised on 2017 O2 Sat Art (Measured) 97(H) 90 - 95 % [facility] Blood 12/05/2024 4:10 AM CDT 12/05/2024 4:24 AM CDT Meño Yeager MD LAB BLOOD ORDERABLES Final Result Performing Organization Address [facility] Co de Phone Number [facility] [place] [address] * (ABNORMAL) POCT glucose (12/05/2024 3:07 AM CDT) Glucose, POC 255(H) 70 - 199 mg/dL Blood 12/05/2024 3:07 AM CDT 12/05/2024 3:07 AM CDT Meño Yeager MD LAB POCT ORDERABLES - DEVICE Final Result Performing Organization Address [facility] Co de Phone Number [facility] Department [place] [address] * (ABNORMAL) POCT glucose (12/05/2024 1:57 AM CDT) Glucose, POC 253(H) 70 - 199 mg/dL Blood 12/05/2024 1:57 AM CDT 12/05/2024 1:57 AM CDT Meño Yeager MD LAB POCT ORDERABLES - DEVICE Final Result Performing Organization Address City/[facility] Co de Phone Number [facility] Department [place] [address] * (ABNORMAL) POCT glucose (12/05/2024 1:17 AM CDT) Pathologist [facility] Glucose, POC 261(H) 70 - 199 mg/dL Blood 12/05/2024 1:17 AM CDT 12/05/2024 1:17 AM CDT Meño Yeager MD LAB POCT ORDERABLES - DEVICE Final Result W[facility]DA [facility] [place] [address] * Potassium, whole blood (12/05/2024 12:09 AM CDT) Pathologist [facility] Potassium, bld 3.9 3.3 - 4.9 mmol/L Blood 12/05/2024 12:0 9 AM CDT 12/05/2024 12:40 AM CDT Meño Yeager MD LAB BLOOD ORDERABLES Final Result Performing Organization Address City/[facility] Co de Phone Number [facility] [place] [address] * (ABNORMAL) eGFR (12/05/2024 12:09 AM CDT) [facility] eGFR 32(L) >=60 mL/min/1. 73 m2 Comment: [...] AM CDT 12/05/2024 12:49 AM CDT Meño Yeager MD LAB BLOOD ORDERABLES Final Result [facility] Department [place] [address] * (ABNORMAL) CBC without differential (12/05/2024 12:09 AM CDT) WBC 10.79(H) 3.80 - 9.90 K/cumm Hgb 8.1(L) 13.0 - 17.5 g/dL [facility] Hct 23.5(L) 38.9 - 50.3 % [facility] Plt 167 150 - 400 K/cumm [facility] MPV 10.8 9.1 - 12.3 fL [facility] RBC 2.58(L) 4.30 - 5.80 M/cumm [facility] MCV 91.1 81.3 - 96.4 fL [facility] MCH 31.4 27.1 - 33.3 pg [facility] MCHC 34.5 32.3 - 35.7 g/dL [facility] RDW CV 14.6 11.1 - 14.9 % [facility] RDW SD 48.1 35.7 - 48.1 fL [facility] NRBC abs 0.00 0.00 - 0.01 K/cumm [facility] Blood 12/05/2024 12:0 9 AM CDT 12/05/2024 12:50 AM CDT Meño Yeager MD LAB BLOOD ORDERABLES Final Result CERNER [facility] [place] [address] * Type and screen (12/05/2024 12:09 AM CDT) Terry, indirect Negative ABO Rh A Positive [facility] Blood 12/05/2024 12:0 9 AM CDT 12/05/2024 1:09 AM CDT Narrative [facility] - 12/05/2024 2:50 AM CDT Has the patient had Daratumumab or Isatuximab in the past 6 months?->Unknown Meño Yeager MD LAB BLOOD BANK TEST ORDERABLES Final Result Performing Organization Address City/[facility]/[place] [address] * Phosphorus (12/05/2024 12:09 AM CDT) Pathologist [facility] Phosphorus, pl 3.7 2.3 - 4.5 mg/dL Blood 12/05/2024 12:0 9 AM CDT 12/05/2024 12:49 AM CDT Meño Yeager MD LAB BLOOD ORDERABLES Final Result Performing Organization Address City/[facility]/ZIP Co de Phone Number [facility] Department [place] [address] * (ABNORMAL) Magnesium (12/05/2024 12:09 AM CDT) [facility] Magnesium 2.7(H) 1.4 - 2.5 mg/dL Blood 12/05/2024 12:0 9 AM CDT 12/05/2024 12:49 AM CDT Meño Yeager MD LAB BLOOD ORDERABLES Final Result Performing Organization Address City/[facility]/ZIP Co de Phone Number [facility] Department [place] [address] * (ABNORMAL) Basic metabolic panel (12/05/2024 12:09 AM CDT) Sodium 138 135 - 145 mmol/L Potassium, pl 4.1 3.3 - 4.9 mmol/L [facility] Chloride 106 97 - 110 mmol/L [facility] CO2 20(L) 22 - 32 mmol/L [facility] Anion gap 12 2 - 15 mmol/L [facility] BUN 65(H) 6 - 25 mg/dL [facility] Creatinine 2.10(H) 0.80 - 1.30 mg/dL [facility] Glucose 312(H) 70 - 199 mg/dL [facility] Comment: Interpretive Data Fasting glucose >/= [...] Calcium 7.9(L) 8.5 - 10.3 mg/dL [facility] Blood 12/05/2024 12:0 9 AM CDT 12/05/2024 12:49 AM CDT us Meño Yeager MD LAB BLOOD ORDERABLES Final Result [facility] Department [place] [address] * (ABNORMAL) POCT glucose (12/05/2024 12:08 AM CDT) Glucose, POC 320(H) 70 - 199 mg/dL Blood 12/05/2024 12:0 8 AM CDT 12/05/2024 12:08 AM CDT Meño Yeager MD LAB POCT ORDERABLES - DEVICE Final Result Performing Organization Address [facility] Co de Phone Number [facility] [place] [address] * (ABNORMAL) POCT glucose (12/04/2024 10:11 PM CDT) Glucose, POC 323(H) 70 - 199 mg/dL Blood 12/04/2024 10:1 1 PM CDT 12/04/2024 10:11 PM CDT Meño Yeaegr MD LAB POCT ORDERABLES - DEVICE Final Result Performing Organization Address [facility] Co de Phone Number [facility] [place] [address] * (ABNORMAL) POCT glucose (12/04/2024 8:33 PM CDT) Glucose, POC 365(H) 70 - 199 mg/dL Blood 12/04/2024 8:33 PM CDT 12/04/2024 8:33 PM CDT Meño Yeager MD LAB POCT ORDERABLES - DEVICE Final Result Performing Organization Address [facility] Co de Phone Number [facility] Department [place] [address] * XR Chest 1 View (12/04/2024 7:50 [...] CDT 12/04/2024 6:08 PM CDT us Meño Yeager MD LAB POCT ORDERABLES - DEVICE Final Result [facility] Department [place] [address] * XR Chest 1 View (12/04/2024 12:20 [...] Potassium, whole blood (12/04/2024 11:37 AM CDT) Pathologist [facility] Potassium, bld 4.3 3.3 - 4.9 mmol/L Blood 12/04/2024 11:3 7 AM CDT 12/04/2024 11:41 AM CDT Meño Yeager MD LAB BLOOD ORDERABLES Final Result Performing Organization Address [facility] Co de Phone Number [facility] Department [place] [address] * (ABNORMAL) POCT glucose (12/04/2024 11:37 AM CDT) Glucose, POC 247(H) 70 - 199 mg/dL Blood 12/04/2024 11:3 7 AM CDT 12/04/2024 11:37 AM CDT Meño Yeager MD LAB POCT ORDERABLES - DEVICE Final Result Performing Organization Address [facility] Co de Phone Number [facility] [place] [address] * POCT glucose (12/04/2024 9:56 AM CDT) Glucose, POC 130 70 - 199 mg/dL Blood 12/04/2024 9:56 AM CDT 12/04/2024 9:56 AM CDT Meño Yeager MD LAB POCT ORDERABLES - DEVICE Final Result Performing Organization Address [facility] [place] [address] * POCT glucose (12/04/2024 8:10 AM CDT) Glucose, POC 126 70 - 199 mg/dL Blood 12/04/2024 8:10 AM CDT 12/04/2024 8:10 AM CDT Meño Yeager MD LAB POCT ORDERABLES - DEVICE Final Result Performing Organization Address [facility] [place] [address] * Critical Care (12/04/2024 8:00 AM CDT) [...] plan with the ICU team and other medical/consultant technology staff, making frequent assessments and decisions regarding [...] AM CDT 12/04/2024 6:56 AM CDT Meño Yeager MD LAB POCT ORDERABLES - DEVICE Final Result Performing Organization Address [facility] Co de Phone Number [facility] Department [place] [address] * POCT glucose (12/04/2024 5:52 AM CDT) Glucose, POC 111 70 - 199 mg/dL Blood 12/04/2024 5:52 AM CDT 12/04/2024 5:52 AM CDT Meño Yeager MD LAB POCT ORDERABLES - DEVICE Final Result Performing Organization Address [facility]/ZIP Co de Phone Number [facility] Department [place] [address] * Potassium, whole blood (12/04/2024 4:11 AM CDT) Potassium, bld 4.2 3.3 - 4.9 mmol/L Blood 12/04/2024 4:11 AM CDT 12/04/2024 4:22 AM CDT us Meño Yeager MD LAB BLOOD ORDERABLES Final Result Performing Organization Address [facility] Co de Phone Number [facility] [place] [address] * (ABNORMAL) Blood gas, arterial (12/04/2024 4:11 AM CDT) pH, Art 7.40 7.35 - 7.45 PCO2, Arterial 34(L) 35 - 45 mmHg [facility] PO2, Arterial 124(H) 83 - 108 mmHg [facility] HCO3 Art (Calculated) 22 20 - 30 mmol/L [facility] BE, art -3 mmol/L [facility] Comment: Interpretive Data No Reference Range Established Current Interpretive Data was last revised on 2017 O2 Sat Art (Measured) 99(H) 90 - 95 % [facility] Blood 12/04/2024 4:11 AM CDT 12/04/2024 4:22 AM CDT us Meño Yeager MD LAB BLOOD ORDERABLES Final Result Performing Organization Address [facility] Co de Phone Number [facility] [place] [address] * POCT glucose (12/04/2024 4:07 AM CDT) Glucose, POC 151 70 - 199 mg/dL Blood 12/04/2024 4:07 AM CDT 12/04/2024 4:07 AM CDT Meño Yeager MD LAB POCT ORDERABLES - DEVICE Final Result Performing Organization Address [facility] Co de Phone Number [facility] [place] [address] * POCT glucose (12/04/2024 2:06 AM CDT) Glucose, POC 177 70 - 199 mg/dL Blood 12/04/2024 2:06 AM CDT 12/04/2024 2:06 AM CDT Meño Yeager MD LAB POCT ORDERABLES - DEVICE Final Result Performing Organization Address [facility] de Phone Number [facility] [place] [address] * Potassium, whole blood (12/04/2024 12:01 AM CDT) Potassium, bld 4.3 3.3 - 4.9 mmol/L Blood 12/04/2024 12:0 1 AM CDT 12/04/2024 12:14 AM CDT Meño Yeager MD LAB BLOOD ORDERABLES Final Result Performing Organization Address [facility] de Phone Number [facility] [place] [address] * (ABNORMAL) eGFR (12/04/2024 12:01 AM CDT) [...] AM CDT 12/04/2024 12:36 AM CDT Meño Yeager MD LAB BLOOD ORDERABLES Final Result Performing Organization Address City/[facility]/ZIP Co de Phone Number [facility] Department [place] [address] * POCT glucose (12/04/2024 12:01 AM CDT) Glucose, POC 199 70 - 199 mg/dL Blood 12/04/2024 12:0 1 AM CDT 12/04/2024 12:01 AM CDT us Meño Yeager MD LAB POCT ORDERABLES - DEVICE Final Result Performing Organization Address City/[facility]/ZIP Co de Phone Number [facility] Department [place] [address] * (ABNORMAL) CBC without differential (12/04/2024 12:01 AM CDT) WBC 13.63(H) 3.80 - 9.90 K/cumm Hgb 8.3(L) 13.0 - 17.5 g/dL [facility] Hct 24.7(L) 38.9 - 50.3 % [facility] Plt 171 150 - 400 K/cumm [facility] MPV 10.9 9.1 - 12.3 fL [facility] RBC 2.65(L) 4.30 - 5.80 M/cumm [facility] MCV 93.2 81.3 - 96.4 fL [facility] MCH 31.3 27.1 - 33.3 pg [facility] MCHC 33.6 32.3 - 35.7 g/dL [facility] RDW CV 14.9 11.1 - 14.9 % [facility] RDW SD 51.1(H) 35.7 - 48.1 fL [facility] NRBC abs 0.00 0.00 - 0.01 K/cumm [facility] Blood 12/04/2024 12:0 1 AM CDT 12/04/2024 12:36 AM CDT Meño Yeager MD LAB BLOOD ORDERABLES Final Result Performing Organization Address [facility] Co de Phone Number [facility] Department [place] [address] * Phosphorus (12/04/2024 12:01 AM CDT) Phosphorus, pl 3.2 2.3 - 4.5 mg/dL Blood 12/04/2024 12:0 1 AM CDT 12/04/2024 12:36 AM CDT Meño Yeager MD LAB BLOOD ORDERABLES Final Result Performing Organization Address [facility] Co de Phone Number [facility] Department [place] [address] * (ABNORMAL) Magnesium (12/04/2024 12:01 AM CDT) Magnesium 2.9(H) 1.4 - 2.5 mg/dL Blood 12/04/2024 12:0 1 AM CDT 12/04/2024 12:36 AM CDT Meño Yeager MD LAB BLOOD ORDERABLES Final Result Performing Organization Address City/[facility] de Phone Number [facility] Department [place] [address] * (ABNORMAL) Blood gas, arterial (12/04/2024 12:01 AM CDT) pH, Art 7.43 7.35 - 7.45 PCO2, Arterial 29(L) 35 - 45 mmHg [facility] PO2, Arterial 84 83 - 108 mmHg [facility] HCO3 Art (Calculated) 20 20 - 30 mmol/L [facility] BE, art -4 mmol/L [facility] Comment: Interpretive Data No Reference Range Established Current Interpretive Data was last revised on 2017 O2 Sat Art (Measured) 97(H) 90 - 95 % [facility] Blood 12/04/2024 12:0 1 AM CDT 12/04/2024 12:14 AM CDT Meño Yeager MD LAB BLOOD ORDERABLES Final Result Performing Organization Address [facility] de Phone Number [facility] Department [place] [address] * (ABNORMAL) Basic metabolic panel (12/04/2024 12:01 AM CDT) [facility] Sodium 142 135 - 145 mmol/L Potassium, pl 4.3 3.3 - 4.9 mmol/L [facility] Chloride 111(H) 97 - 110 mmol/L [facility] CO2 20(L) 22 - 32 mmol/L [facility] Anion gap 11 2 - 15 mmol/L [facility] BUN 46(H) 6 - 25 mg/dL [facility] Creatinine 2.26(H) 0.80 - 1.30 mg/dL [facility] Glucose 180 70 - 199 mg/dL [facility] Comment: Interpretive Data Fasting glucose >/= [...] 2022. Calcium 8.8 8.5 - 10.3 mg/dL [facility] Blood 12/04/2024 12:0 1 AM CDT 12/04/2024 12:36 AM CDT us Meño Yeager MD LAB BLOOD ORDERABLES Final Result [facility] Department [place] [address] * (ABNORMAL) Lipid panel (12/02/2024 1:44 AM [...] revised on 2018. Triglycerides 115 <=149 mg/dL [facility] Comment: Interpretive Data Ages < or [...] revised on 2018. HDL 21(L) >=40 mg/dL [facility] Comment: Interpretive Data Ages < or [...] on 2018. LDL, calculated 13 <=129 mg/dL [facility] Comment: Interpretive Data Ages < or [...] NCEP Expert Panel. Circulation 2004;110:227 3. Sonny Vargas al. ZEHRA Cardiol. 2019September 22;5(5):540-548. doi: 10.1001/jamacardio.2020.0013 Current Interpretive Data was last revised on 2024. Non-HDL Cholesterol 34 mg/dL [facility] Comment: Interpretive Data Ages < or [...] last revised on 2018. Chol/HDL ratio [address] [facility] Blood 12/02/2024 1:44 AM CDT 12/02/2024 2:14 AM CDT us Meño Yeager MD LAB BLOOD ORDERABLES Final Result 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 Specials protocols are implemented when working with a patient testing positive for C. Auris. Isolation is life long Please contact Infection Prevention when patient admitted. 02/06/2025 02/06/2025 Insurance [facility] MEDICARE [place] [facility] MEDICARE [place] [employer] MEDICARE GOLD Advance Directives For more information, please contact: [phone] Documents on File Type Date Recorded Patient Junior Staff Accountant Expl anation ADVANCE DIRECTIVE 02/20/2025 11:21 AM DAR R OF CERTIFIED PHLEBOTOMY TECHNICIAN-MEDICAL ADVANCE DIRECTIVE 02/10/2025 8:39 AM Medic al Power of Guest Services Coordinator 12/01/2024 5:43 PM * Full Code (Latest Code Status on File) Date Activated Date Inactivated Comments 02/02/2025 6:45 AM 02/14/2025 8:50 PM * Full Code Date Activated Date Inactivated Comments 01/02/2025 9:54 PM 01/12/2025 8:11 PM * Full Code Date Activated Date Inactivated Comments 12/02/2024 12:53 AM 12/27/2024 6:46 PM * Full Code Date Activated Date Inactivated Comments 11/15/2024 11:58 AM 11/15/2024 5:56 PM Healthcare Agents on File Name Relationship Healthcare Agent Relationshi p Communication Aldair To Son Health Care Agent Roly To Son First Alternate Health Care Agent Care Teams Concrete Stone Fabricator Relationship Specialty Start Date End Date Anthony Hogan DO PCP - General Internal Medicine 08/25/24 Liam Norris MD [address] [facility] [address] [place] [address] Referring Physician Cardiology 10/19/24 Meño Yeager MD [id number] [place] [address] Consulting Physician Cardiothoracic Surgery 12/27/24 Miscellaneous, Not In File 12/27/24 Mounika Giang MD [address] [facility] [address] [place] [address] Referring Physician Internal Medicine 02/14/25 Unknown, Notinfile 02/14/25
--- OUTSIDE RECORDS SUMMARY | 2025-03-06 10:52 | XMS_ITS | Encounter Summary ---
Author Organization [facility] Healthcare Address [address] [place] [address] Care Team Providers Care Film Loader Name Role Phone Anthony Hogan DO Primary Care Provider Liam Norris MD Unavailable Meño Yeager MD Unavailable [phone] Miscellaneous, Not In File Unavailable Unava ilable Mounika Giang MD Unavailable [phone] Unknown, Notinfile Unavailable Unavailable Encounter Details Date Type Department Care Team (Late st Contact Info) Description 09/20/2024 Telephone [facility] [address] [place] [id number] Luzmaria Conrad RN Social History Tobacco Use Types Packs/Day Years Used Date Smoking Tobacco: Some Days Cigars Smokeless Tobacco: Never Alcohol Use Standard Drinks/Week Comments Not Currently 0 (1 standard drink = 0.6 oz pur e alcohol) former alcoholic Sex and Gender Information Value Date Recorded Sex Assigned at Not on file Legal Sex 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 Specials protocols are implemented when working with a patient testing positive for C. Auris. Isolation is life long Please contact Infection Prevention when patient admitted. 02/06/2025 02/06/2025 documented as of this encounter Care Teams Film Loader Relationship Specialty Start Date End Date Anthony Hogan DO PCP - General Internal Medicine 08/25/24 Liam Norris MD [address] [facility] [address] [place] [address] Referring Physician Cardiology 10/19/24 Meño Yeager MD [id number] [place] [address] Consulting Physician Cardiothoracic Surgery 12/27/24 Miscellaneous, Not In File 12/27/24 Mounika Giang MD [address] [place] [address] Referring Physician Internal Medicine 02/14/25 Unknown, Notinfile 02/14/25 documented as of this encounter
[2025-03-06 13:10] LABS: Alanine Aminotransferase 58 U/L (6-50); Albumin Level 3.4 g/dL (3.5-5.1); Alkaline Phosphatase 133 U/L (38-126); Anion Gap 6 mmol/L (4-12); Anion Gap 7 mmol/L (4-12); Aspartate Amino Transferase 50 U/L (17-59); Bilirubin,Total 0.4 mg/dL (0.2-1.3); Blood Urea Nitrogen 15 mg/dL (9-20); Calcium 8.6 mg/dL (8.4-10.2); Carbon Dioxide 27 mmol/L (22-30); Carbon Dioxide 28 mmol/L (22-30); Chloride 102 mmol/L (98-107); Chloride 103 mmol/L (98-107); Cholesterol 108 mg/dL (0-200); Estimated Glomerular Filt Rate 60; Estimated Glomerular Filt Rate > 60; Glucose 258 mg/dL (65-110); Glucose 259 mg/dL (65-110); HDL Direct 27 mg/dL; Magnesium 2.2 mg/dL (1.6-2.3); Potassium 3.7 mmol/L (3.4-5.0); Sodium 136 mmol/L (137-145); Sodium 137 mmol/L (137-145); Total Protein 6.8 g/dL (6.3-8.2); Triglycerides 97 mg/dL (<150)
[2025-03-06 13:39] LABS: Free T4 Free Thyroxine 1.51 ng/dL (0.78-2.19)
[2025-03-06 13:47] LABS: Thyroid Stimulating Hormone 5.070 uIU/mL (0.465-4.680)
[2025-03-06 14:06] LABS: Vitamin B12 890.0 pg/mL (239-931)
[2025-03-06 15:59] LABS: MALB Creatinine Ratio 161.7 mg/g (0-30)
--- OUTSIDE RECORDS SUMMARY | 2025-04-15 19:00 | XMS_ITS | Clinical Summary ---
Author Organization Unknown Care Team Providers Care Technical Operations Vice President Name Role Phone INGRID ROWELL, STEPHANI Unavailable Unavailable ROBIN RN, KAYLA Unavailable Unavailnithin ROWE LPN, CAROLE Unavailable Unavailable CARMELO ESPARZA, IZA Unavailable Unavailable Payers Payer Name Policy Type Policy Number Effective Date Expira tion Date [facility] [id number] Problems Condition Name Condition Details Condition Category Status Onset Date Resolution Date Last Treatment Date Treating Clinician Comments ACUTE KIDNEY FAILURE, UNSPECIFIED Active 02-16 00:00: 00 TYPE 2 DIABETES MELLITUS W DIABETIC CHRONIC KIDNEY DISEASE Active 02-16 00:00: 00 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 CHR KDNY Active 02-16 00:00: 00 ACUTE ON CHRONIC DIASTOLIC (CONGESTIVE) HEART FAILURE Active 02-16 00:00: 00 CHRONIC KIDNEY DISEASE, STAGE 4 (SEVERE) Active 02-16 00:00: 00 ANEMIA IN CHRONIC KIDNEY DISEASE Active 02-16 00:00: 00 PAROXYSMAL ATRIAL FIBRILLATION Active 02-02 00:00: 00 ATHSCL HEART DISEASE OF [place] CORONARY ARTERY W/O ANG PCTRS Active 02-02 00:00: 00 HYPOTENSION, UNSPECIFIED Active 02-02 00:00: 00 OBSTRUCTIVE SLEEP APNEA (ADULT) (PEDIATRIC) Active 02-02 00:00: 00 OBESITY, UNSPECIFIED Active 02-02 00:00: 00 CANDIDIASIS, UNSPECIFIED Active 02-02 00:00: 00 NONTOXIC SINGLE THYROID NODULE Active 10-23 00:00: 00 PRESENCE OF OTHER HEART-VALVE REPLACEMENT Active 12-02 00:00: 00 PRESENCE OF AORTOCORONAR Y BYPASS GRAFT Active 12-01 00:00: 00 PRESENCE OF CARDIAC PACEMAKER Active 12-19 00:00: 00 BODY MASS INDEX [BMI]40.0-44 .9, ADULT Active 02-02 00:00: 00 ALF (CURRENT) USE OF INSULIN Active 02-16 00:00: 00 QUALITY ASSURANCE DIRECTOR (CURRENT) USE OF ANTICOAGULAN TS Active 01-25 00:00: 00 QUALITY ASSURANCE DIRECTOR (CURRENT) USE OF ASPIRIN Active 01-25 00:00: 00 Patient's other noncompl with meds regimen for other reason Active 02-16 00:00: 00 HISTORY OF FALLING Active 01-23 00:00: 00 PRSNL HX OF TIA (TIA), AND CEREB INFRC W/O RESID DEFICITS Active 05-25 00:00: 00 PERSONAL HISTORY OF PNEUMONIA (RECURRENT) Active 12-01 00:00: 00 Allergies, Adverse Reactions, Alerts Allergy Name Allergy Type Status Severity Reaction(s) Onset Date Inactive Date Treating Clinician Comments NO KNOWN ALLERGIES Propensity to adverse reactions Active 02-16 14:09: 21 Medications Ordered Medication Name Filled Medication Name Start Date Stop Date Current Medication? Ordering Clinician Indication Dosage Frequency Signature (SIG) Comments Components Dexcom G7 Multimedia Instructional Designer 12-20 00:00: 00 01-25 00:00 :00 No [id number] Per instruc tions Per instructio ns (route: miscellane ous) Med Classific ation: Medical Supplies and Durable Medical Equipment (DME) Dexcom G7 Sensor device 12-20 00:00: 00 01-25 00:00 :00 No [id number] Per instruc tions Per instructio ns (route: miscellane ous) Med Classific ation: Medical Supplies and Durable Medical Equipment (DME) acetaminoph en 500 mg tablet 01-25 00:00: 00 Yes [id number] PAIN 2 tablet 2 TIMES DAILY 2 tablet 2 TIMES DAILY (route: oral) Med Classific ation: Analgesic , Anti-infl ammatory or Antipyret ic amiodarone 200 mg tablet 01-25 00:00: 00 02-16 00:00 :00 No [id number] A-FIB 2 tablet DAILY 2 tablet DAILY (route: oral) Med Classific ation: Cardiovas cular Therapy Agents amlodipine 10 mg tablet 01-25 00:00: 00 Yes [id number] BLOOD PRESSURE 1 tablet DAILY 1 tablet DAILY (route: oral) Med Classific ation: Cardiovas cular Therapy Agents aspirin 81 mg tablet,misty yed release 01-25 00:00: 00 Yes [id number] BLOOD CLOT 1 tablet DAILY 1 tablet DAILY (route: oral) Med Classific ation: Hematolog ical Agents benzonatate 200 mg capsule 01-25 00:00: 00 02-16 00:00 :00 No [id number] COUGH 1 capsule 3 TIMES DAILY 1 capsule 3 TIMES DAILY (route: oral) Med Classific ation: Respirato ry Therapy Agents cyanocobala min (vitamin B-12) 1,000 mcg capsule 01-25 00:00: 00 02-16 00:00 :00 No [id number] SUPPLEMENT 1 capsule DAILY 1 capsule DAILY (route: oral) Med Classific ation: Electroly te Balance-N utritiona l Products docusate sodium 100 mg capsule 01-25 00:00: 00 Yes [id number] SUPPLEMENT 1 capsule 2 TIMES DAILY 1 capsule 2 TIMES DAILY (route: oral) Med Classific ation: Gastroint estinal Therapy Agents Eliquis 2.5 mg tablet 01-25 00:00: 00 Yes [id number] BLOOD CLOT 1 tablet 2 TIMES DAILY 1 tablet 2 TIMES DAILY (route: oral) Med Classific ation: Hematolog ical Agents gabapentin 100 mg capsule 01-25 00:00: 00 02-16 00:00 :00 No [id number] NERVE PAIN 1 capsule 2 TIMES DAILY 1 capsule 2 TIMES DAILY (route: oral) Med Classific ation: Central Nervous System Agents Glucosamine Chondroitin Maximum Strength 500 mg-400 mg capsule 01-25 00:00: 00 02-16 00:00 :00 No [id number] SUPPLEMENT 1 capsule 3 TIMES DAILY 1 capsule 3 TIMES DAILY (route: oral) Med Classific ation: Alternati ve Therapy guaifenesin 100 mg/5 mL oral liquid 01-25 00:00: 00 02-16 00:00 :00 No [id number] COUGH SYRUP 400 mg EVERY 6 HOURS 400 mg EVERY 6 HOURS (route: oral) Med Classific ation: Respirato ry Therapy Agents insulin glargine (U-100) 100 unit/mL subcutaneou s solution 01-25 00:00: 00 02-16 23:59 :00 No [id number] DIABETES 52 In unit DAILY 52 In unit DAILY (route: subcutaneo us) Med Classific ation: Endocrine Jardiance 25 mg tablet 01-25 00:00: 00 02-16 00:00 :00 No [id number] BLOOD GLUCOSE 12.5 mg DAILY 12.5 mg DAILY (route: oral) Med Classific ation: Endocrine Lasix 40 mg tablet 01-25 00:00: 00 Yes [id number] FLUID RETENTION 2 tablet 2 TIMES DAILY 2 tablet 2 TIMES DAILY (route: oral) Med Classific ation: Cardiovas cular Therapy Agents lidocaine 5 % topical patch 01-25 00:00: 00 02-16 00:00 :00 No [id number] PAIN 1 adhesiv e patch, medicat ed DAILY 1 adhesive patch, medicated DAILY (route: topical) Med Classific ation: Dermatolo gical magnesium 400 mg (as magnesium oxide) capsule 01-25 00:00: 00 Yes [id number] SUPPLEMENT 1 capsule DAILY 1 capsule DAILY (route: oral) Med Classific ation: Electroly te Balance-N utritiona l Products metformin 1,000 mg tablet 01-25 00:00: 00 02-16 00:00 :00 No [id number] DIABETES 1 tablet DAILY 1 tablet DAILY (route: oral) Med Classific ation: Endocrine metoprolol succinate ER 100 mg tablet,exte nded release 24 hr 01-25 00:00: 00 02-16 00:00 :00 No [id number] BLOOD PRESSURE 1 tablet 2 TIMES DAILY 1 tablet 2 TIMES DAILY (route: oral) Med Classific ation: Cardiovas cular Therapy Agents Miralax 17 gram oral powder packet 01-25 00:00: 00 Yes [id number] CONSTIPATIO N 1 packet 2 TIMES DAILY 1 packet 2 TIMES DAILY (route: oral) Med Classific ation: Gastroint estinal Therapy Agents multivitami n tablet 01-25 00:00: 00 Yes [id number] SUPPLEMENT 1 tablet DAILY 1 tablet DAILY (route: oral) Med Classific ation: Electroly te Balance-N utritiona l Products omega-3 fatty acids 1,000 mg capsule 01-25 00:00: 00 Yes [id number] SUPPLEMENT 1 capsule DAILY 1 capsule DAILY (route: oral) Med Classific ation: Cardiovas cular Therapy Agents potassium chloride ER 10 mEq tablet,exte nded release 01-25 00:00: 00 02-16 00:00 :00 No [id number] SUPPLEMENT 1 tablet 2 TIMES DAILY 1 tablet 2 TIMES DAILY (route: oral) Med Classific ation: Electroly te Balance-N utritiona l Products Rozerem 8 mg tablet 01-25 00:00: 00 02-16 00:00 :00 No [id number] INSOMNIA 1 tablet BEDTIME 1 tablet BEDTIME (route: oral) Med Classific ation: Central Nervous System Agents senna 8.6 mg tablet 01-25 00:00: 00 Yes [id number] CONSTIPATIO N 1 tablet 2 TIMES DAILY 1 tablet 2 TIMES DAILY (route: oral) Med Classific ation: Gastroint estinal Therapy Agents Seroquel 25 mg tablet 01-25 00:00: 00 02-16 00:00 :00 No [id number] MOOD 1 tablet BEDTIME 1 tablet BEDTIME (route: oral) Med Classific ation: Central Nervous System Agents tamsulosin 0.4 mg capsule 01-25 00:00: 00 02-16 00:00 :00 No [id number] OVERACTIVE BLADDER 1 capsule BEDTIME 1 capsule BEDTIME (route: oral) Med Classific ation: Genitouri nary Therapy Tradjenta 5 mg tablet 01-25 00:00: 00 02-16 00:00 :00 No [id number] DIABETES 2.5 mg DAILY 2.5 mg DAILY (route: oral) Med Classific ation: Endocrine hydralazine 10 mg tablet 02-16 00:00: 00 Yes [id number] HYPERTENSIO N 1 tablet 3 TIMES DAILY 1 tablet 3 TIMES DAILY (route: oral) Med Classific ation: Cardiovas cular Therapy Agents insulin glargine (U-100) 100 unit/mL (3 mL) subcutaneou s pen 02-16 00:00: 00 Yes [id number] DIABETES 20 unit BEDTIME 20 unit [facility]TIME ([facility] Med Classific ation: Endocrine insulin lispro (U-100) 100 unit/mL subcutaneou s half-unit pen 02-16 00:00: 00 Yes [id number] DIABETES Per instruc tions 3 TIMES DAILY Per instructio ns 3 TIMES DAILY ([facility] Med Classific ation: Endocrine rosuvastati n 10 mg tablet 02-16 00:00: 00 Yes [id number] HYPERLIPIDE APOLINAR 1 tablet BEDTIME 1 tablet BEDTIME (route: oral) Med Classific ation: Cardiovas cular Therapy Agents Vital Signs Vital Name Observation Time Observation Value Commen ts Temperature 2025-03-02 08:57:00.000 97.6 [degF] Temperature 2025-02-22 17:05:00.000 98.7 [degF] Temperature 2025-02-16 12:11:00.000 97.9 [degF] BMI (%) 2025-02-16 12:11:00.000 39 kg/m2 Height 2025-02-16 12:11:00.000 70 [in_us] Pulse 2025-03-02 08:57:00.000 73 /min Pulse 2025-02-22 17:05:00.000 66 /min Pulse 2025-02-16 12:11:00.000 68 /min O2 Saturation (%) 2025-02-22 17:05:00.000 94 % O2 Saturation (%) 2025-02-16 12:11:00.000 96 % Respirations 2025-03-02 08:57:00.000 18 /min Respirations 2025-02-22 17:05:00.000 20 /min Respirations 2025-02-16 12:11:00.000 18 /min Weight (lbs) 2025-03-02 09:03:00.000 275 [lb_av] Weight (lbs) 2025-02-16 12:11:00.000 275 [lb_av] Systolic Blood Pressure 2025-03-02 08:57:00.000 132 mm [Hg] Systolic Blood Pressure 2025-02-22 17:05:00.000 130 mm [Hg] Systolic Blood Pressure 2025-02-16 12:11:00.000 146 mm [Hg] Diastolic Blood Pressure 2025-03-02 08:57:00.000 62 mm [Hg] Diastolic Blood Pressure 2025-02-22 17:05:00.000 60 mm [Hg] Diastolic Blood Pressure 2025-02-16 12:11:00.000 68 mm [Hg] Plan of Treatment Planned Activity Planned Date Details Comments Future Scheduled Test SN 1WK9 WI TH 2 PRN FOR 1 CARDIAC / 1 DIABETES RN TO OBSERVE, ASSESS, EVALUATE, AND DEVELOP AN INDIVIDUALIZED PLAN OF CARE. AGENCY MAY ACCEPT ORDERS FROM CONSULTING PHYSICIANS RN TO OBSERVE AND ASSESS, TEXTILE BROKER/CONSTRUCTION ASSISTANT TO OBSERVE FOR RISK FOR FALLS AND INSTRUCT IN FALL PREVENTION, HOME SAFETY, MEDICATION MANAGEMENT, INFECTION PREVENTION, AND NUTRITION MANAGEMENT. RN/TEXTILE BROKER/CONSTRUCTION ASSISTANT NURSE MAY PERFORM O2 SATURATION LEVEL ON ADMISSION AND PRN FOR FOR RN TO ASSESS/TEXTILE BROKER TO OBSERVE PATIENT, WITH NOTIFICATION TO THE PHYSICIAN IF SATURATION IS 90% IN THE ABSENCE OF MORE SPECIFIC PARAMETERS FROM THE PHYSICIAN. AGENCY MAY PERFORM A RESUMPTION OF CARE VISIT FOLLOWING ANY HOSPITAL ADMISSION. RN/TEXTILE BROKER/CONSTRUCTION ASSISTANT TO MONITOR CO-MORBID CONDITIONS LISTED ON THE PLAN OF CARE AND ANY NEW CONDITIONS THAT PRESENT THEMSELVES DURING THIS EPISODE TO IDENTIFY CHANGES AND INTERVENE TO MINIMIZE COMPLICATIONS. [code = SN 1WK9 WITH 2 PRN FOR 1 CARDIAC / 1 DIABETES RN TO OBSERVE, ASSESS, EVALUATE, AND DEVELOP AN INDIVIDUALIZED PLAN OF CARE. AGENCY MAY ACCEPT ORDERS FROM CONSULTING PHYSICIANS RN TO OBSERVE AND ASSESS, TEXTILE BROKER/CONSTRUCTION ASSISTANT TO OBSERVE FOR RISK FOR FALLS AND INSTRUCT IN FALL PREVENTION, HOME SAFETY, MEDICATION MANAGEMENT, INFECTION PREVENTION, AND NUTRITION MANAGEMENT. RN/TEXTILE BROKER/CONSTRUCTION ASSISTANT NURSE MAY PERFORM O2 SATURATION LEVEL ON ADMISSION AND PRN FOR FOR RN TO ASSESS/TEXTILE BROKER TO OBSERVE PATIENT, WITH NOTIFICATION TO THE PHYSICIAN IF SATURATION IS 90% IN THE ABSENCE OF MORE SPECIFIC PARAMETERS FROM THE PHYSICIAN. AGENCY MAY PERFORM A RESUMPTION OF CARE VISIT FOLLOWING ANY HOSPITAL ADMISSION. RN/TEXTILE BROKER/CONSTRUCTION ASSISTANT TO MONITOR CO-MORBID CONDITIONS LISTED ON THE PLAN OF CARE AND ANY NEW CONDITIONS THAT PRESENT THEMSELVES DURING THIS EPISODE TO IDENTIFY CHANGES AND INTERVENE TO MINIMIZE COMPLICATIONS.] Future Scheduled Test RISK FOR H OSPITALIZATION; RN TO ASSESS/TEACH, CONSTRUCTION ASSISTANT/TEXTILE BROKER TO OBSERVE/TEACH PATIENT/CAREGIVER ON RISK FOR HOSPITALIZATION/EMERGENCY ROOM VISITS, TEACH SIGNS AND SYMPTOMS THAT PUT PATIENT AT RISK, WHEN TO NOTIFY NURSE/PHYSICIAN OF COMPLICATIONS/DECLINE, AND WHEN TO CALL 911. [code = RISK FOR HOSPITALIZATION; RN TO ASSESS/TEACH, CONSTRUCTION ASSISTANT/TEXTILE BROKER TO OBSERVE/TEACH PATIENT/CAREGIVER ON RISK FOR HOSPITALIZATION/EMERGENCY ROOM VISITS, TEACH SIGNS AND SYMPTOMS THAT PUT PATIENT AT RISK, WHEN TO NOTIFY NURSE/PHYSICIAN OF COMPLICATIONS/DECLINE, AND WHEN TO CALL 911.] Future Scheduled Test MEDICATION MANAGEMENT; RN/TEXTILE BROKER/CONSTRUCTION ASSISTANT TO REVIEW MEDICATIONS FOR INTERACTIONS, EFFECTIVENESS OF DRUG THERAPY, AND SIGNS/SYMPTOMS OF ADVERSE REACTIONS. MAY INSTRUCT AND REINFORCE MEDICATION TEACHING RELATED TO THE USE OF MEDICATIONS, DOSAGE, FREQUENCY, PURPOSE, SIDE EFFECTS, AND TO REPORT COMPLICATIONS. [code = MEDICATION MANAGEMENT; RN/TEXTILE BROKER/CONSTRUCTION ASSISTANT TO REVIEW MEDICATIONS FOR INTERACTIONS, EFFECTIVENESS OF DRUG THERAPY, AND SIGNS/SYMPTOMS OF ADVERSE REACTIONS. MAY INSTRUCT AND REINFORCE MEDICATION TEACHING RELATED TO THE USE OF MEDICATIONS, DOSAGE, FREQUENCY, PURPOSE, SIDE EFFECTS, AND TO REPORT COMPLICATIONS.] Future Scheduled Test ANTITHROMB OTIC MANAGEMENT; RN TO ASSESS AND TEACH, TEXTILE BROKER/CONSTRUCTION ASSISTANT TO OBSERVE/TEACH/MONITOR EFFECTIVENESS OF ANTITHROMBOTIC THERAPY. RN/TEXTILE BROKER/CONSTRUCTION ASSISTANT TO INSTRUCT ON SIGNS AND SYMPTOMS OF BLEEDING/ADVERSE REACTIONS TO REPORT TO PHYSICIAN. PATIENT PRESCRIBED ELIQUIS [code = ANTITHROMBOTIC MANAGEMENT; RN TO ASSESS AND TEACH, TEXTILE BROKER/CONSTRUCTION ASSISTANT TO OBSERVE/TEACH/MONITOR EFFECTIVENESS OF ANTITHROMBOTIC THERAPY. RN/TEXTILE BROKER/CONSTRUCTION ASSISTANT TO INSTRUCT ON SIGNS AND SYMPTOMS OF BLEEDING/ADVERSE REACTIONS TO REPORT TO PHYSICIAN. PATIENT PRESCRIBED ELIQUIS] Future Scheduled Test CARDIOVASC ULAR SYSTEM; RN TO ASSESS/TEACH, TEXTILE BROKER/CONSTRUCTION ASSISTANT TO OBSERVE/TEACH RELATED TO ALTERED CARDIOVASCULAR STATUS TO MINIMIZE COMPLICATIONS AND REDUCE HOSPITALIZATION. [code = CARDIOVASCULAR SYSTEM; RN TO ASSESS/TEACH, TEXTILE BROKER/CONSTRUCTION ASSISTANT TO OBSERVE/TEACH RELATED TO ALTERED CARDIOVASCULAR STATUS TO MINIMIZE COMPLICATIONS AND REDUCE HOSPITALIZATION.] Future Scheduled Test HYPERTENSI ON MANAGEMENT; RN TO ASSESS AND TEACH, TEXTILE BROKER/CONSTRUCTION ASSISTANT TO OBSERVE AND TEACH WARNING SIGNS AND SYMPTOMS TO AVOID HOSPITALIZATION. [code = HYPERTENSION MANAGEMENT; RN TO ASSESS AND TEACH, TEXTILE BROKER/CONSTRUCTION ASSISTANT TO OBSERVE AND TEACH WARNING SIGNS AND SYMPTOMS TO AVOID HOSPITALIZATION.] Future Scheduled Test ARRHYTHMIA MANAGEMENT; RN TO ASSESS AND TEACH, TEXTILE BROKER/CONSTRUCTION ASSISTANT TO OBSERVE AND TEACH WARNING SIGNS AND SYMPTOMS TO AVOID HOSPITALIZATION. [code = ARRHYTHMIA MANAGEMENT; RN TO ASSESS AND TEACH, TEXTILE BROKER/CONSTRUCTION ASSISTANT TO OBSERVE AND TEACH WARNING SIGNS AND SYMPTOMS TO AVOID HOSPITALIZATION.] Future Scheduled Test PAIN MANAG EMENT; RN TO ASSESS AND TEACH, CONSTRUCTION ASSISTANT/TEXTILE BROKER TO OBSERVE AND TEACH AND PROVIDE EDUCATION ON PAIN MANAGEMENT TECHNIQUES. [code = PAIN MANAGEMENT; RN TO ASSESS AND TEACH, CONSTRUCTION ASSISTANT/TEXTILE BROKER TO OBSERVE AND TEACH AND PROVIDE EDUCATION ON PAIN MANAGEMENT TECHNIQUES.] Future Scheduled Test ANEMIA MAN AGEMENT; RN TO ASSESS AND TEACH, CONSTRUCTION ASSISTANT/TEXTILE BROKER TO OBSERVE AND TEACH AND PROVIDE EDUCATION ON ANEMIA. [code = ANEMIA MANAGEMENT; RN TO ASSESS AND TEACH, CONSTRUCTION ASSISTANT/TEXTILE BROKER TO OBSERVE AND TEACH AND PROVIDE EDUCATION ON ANEMIA.] Future Scheduled Test FALL REDUC TION MANAGEMENT; RN TO ASSESS AND OBSERVE, TEXTILE BROKER/CONSTRUCTION ASSISTANT TO OBSERVE FALL RISK FACTORS AND EDUCATE PATIENT/CAREGIVER ON STRATEGIES TO MINIMIZE THE RISK OF FALLING. [code = FALL REDUCTION MANAGEMENT; RN TO ASSESS AND OBSERVE, TEXTILE BROKER/CONSTRUCTION ASSISTANT TO OBSERVE FALL RISK FACTORS AND EDUCATE PATIENT/CAREGIVER ON STRATEGIES TO MINIMIZE THE RISK OF FALLING.] Future Scheduled Test PRN VISITS ; NUMBER OF RN/TEXTILE BROKER/CONSTRUCTION ASSISTANT VISITS: 2 RN/TEXTILE BROKER/CONSTRUCTION ASSISTANT TO PERFORM: 1 CARDIAC / 1 DIABETES FOR THE FOLLOWING REASONS: COMPLICATIONS [code = PRN VISITS; NUMBER OF RN/TEXTILE BROKER/CONSTRUCTION ASSISTANT VISITS: 2 RN/TEXTILE BROKER/CONSTRUCTION ASSISTANT TO PERFORM: 1 CARDIAC / 1 DIABETES FOR THE FOLLOWING REASONS: COMPLICATIONS] Future Scheduled Test PHYSICAL T HERAPIST TO EVALUATE FOR EVALUATION AND TREATMENT [code = PHYSICAL THERAPIST TO EVALUATE FOR EVALUATION AND TREATMENT] Future Scheduled Test OCCUPATION AL THERAPIST TO EVALUATE FOR EVALUATION AND TREATMENT [code = OCCUPATIONAL THERAPIST TO EVALUATE FOR EVALUATION AND TREATMENT] Future Scheduled Test DIABETES M ANAGEMENT; RN TO ASSESS AND TEACH, CONSTRUCTION ASSISTANT/TEXTILE BROKER TO OBSERVE AND TEACH INSTRUCTIONS OF DIABETIC CARE TO INCLUDE: DIET: DIAETIC SKIN CARE, SIGNS AND SYMPTOMS OF HYPO/HYPERGLYCEMIA, PROPER ADMINISTRATION OF DIABETIC MEDICATION. RN/CONSTRUCTION ASSISTANT/TEXTILE BROKER TO INSTRUCT ON DIABETIC FOOT CARE AND MONITOR FOR SKIN LESIONS ON LOWER EXTREMITIES. BLOOD GLUCOSE TESTING DAILY AND PRN. PATIENT CHECKING VIA DEXCOM SENSOR AND OR FINGERSTICK. RN TO ASSESS AND TEACH, CONSTRUCTION ASSISTANT/TEXTILE BROKER TO OBSERVE AND TEACH PATIENT/CAREGIVER ABILITY TO PERFORM AND RECORD BLOOD GLUCOSE TESTING ORDERED AND TO REPORT ABNORMAL FINDINGS TO PHYSICIAN. RN/CONSTRUCTION ASSISTANT/TEXTILE BROKER MAY PERFORM BLOOD GLUCOSE TEST NEEDED. RN/CONSTRUCTION ASSISTANT/TEXTILE BROKER TO REPORT TO PHYSICIAN BLOOD GLUCOSE READINGS GREATER THAN 300 OR LESS THAN 70. RN/CONSTRUCTION ASSISTANT/TEXTILE BROKER TO INSTRUCT PATIENT ON IMPORTANCE OF HGBA1C MONITORING, KIDNEY FUNCTION TEST, EYE AND FOOT EXAMS. [code = DIABETES MANAGEMENT; RN TO ASSESS AND TEACH, CONSTRUCTION ASSISTANT/TEXTILE BROKER TO OBSERVE AND TEACH INSTRUCTIONS OF DIABETIC CARE TO INCLUDE: DIET: DIAETIC SKIN CARE, SIGNS AND SYMPTOMS OF HYPO/HYPERGLYCEMIA, PROPER ADMINISTRATION OF DIABETIC MEDICATION. RN/CONSTRUCTION ASSISTANT/TEXTILE BROKER TO INSTRUCT ON DIABETIC FOOT CARE AND MONITOR FOR SKIN LESIONS ON LOWER EXTREMITIES. BLOOD GLUCOSE TESTING DAILY AND PRN. PATIENT CHECKING VIA DEXCOM SENSOR AND OR FINGERSTICK. RN TO ASSESS AND TEACH, CONSTRUCTION ASSISTANT/TEXTILE BROKER TO OBSERVE AND TEACH PATIENT/CAREGIVER ABILITY TO PERFORM AND RECORD BLOOD GLUCOSE TESTING ORDERED AND TO REPORT ABNORMAL FINDINGS TO PHYSICIAN. RN/CONSTRUCTION ASSISTANT/TEXTILE BROKER MAY PERFORM BLOOD GLUCOSE TEST NEEDED. RN/CONSTRUCTION ASSISTANT/TEXTILE BROKER TO REPORT TO PHYSICIAN BLOOD GLUCOSE READINGS GREATER THAN 300 OR LESS THAN 70. RN/CONSTRUCTION ASSISTANT/TEXTILE BROKER TO INSTRUCT PATIENT ON IMPORTANCE OF HGBA1C MONITORING, KIDNEY FUNCTION TEST, EYE AND FOOT EXAMS.] Future Scheduled Test RESPIRATOR Y SYSTEM MANAGEMENT; RN TO ASSESS AND TEACH, TEXTILE BROKER/CONSTRUCTION ASSISTANT TO OBSERVE AND TEACH RELATED TO ALTERED RESPIRATORY STATUS TO MINIMIZE COMPLICATIONS AND REDUCE HOSPITALIZATION. [code = RESPIRATORY SYSTEM MANAGEMENT; RN TO ASSESS AND TEACH, TEXTILE BROKER/CONSTRUCTION ASSISTANT TO OBSERVE AND TEACH RELATED TO ALTERED RESPIRATORY STATUS TO MINIMIZE COMPLICATIONS AND REDUCE HOSPITALIZATION.] Future Scheduled Test NEUROLOGIC AL SYSTEM MANAGEMENT; RN TO ASSESS AND TEACH, CONSTRUCTION ASSISTANT/TEXTILE BROKER TO OBSERVE AND TEACH RELATED TO ALTERED NEUROLOGICAL STATUS TO MINIMIZE COMPLICATIONS AND REDUCE HOSPITALIZATION. [code = NEUROLOGICAL SYSTEM MANAGEMENT; RN TO ASSESS AND TEACH, CONSTRUCTION ASSISTANT/TEXTILE BROKER TO OBSERVE AND TEACH RELATED TO ALTERED NEUROLOGICAL STATUS TO MINIMIZE COMPLICATIONS AND REDUCE HOSPITALIZATION.] Future Scheduled Test CEREBRAL V ASCULAR ACCIDENT MANAGEMENT; RN/CONSTRUCTION ASSISTANT/TEXTILE BROKER TO PROVIDE SKILLED TEACHING AND MANAGEMENT OF POST CEREBRAL VASCULAR ACCIDENT. [code = CEREBRAL VASCULAR ACCIDENT MANAGEMENT; RN/CONSTRUCTION ASSISTANT/TEXTILE BROKER TO PROVIDE SKILLED TEACHING AND MANAGEMENT OF POST CEREBRAL VASCULAR ACCIDENT.] Goal Patient Goal - G ET BETTER AT A STEADY PACE. BE STRONGER AND MORE INDEPENDENT. GET CONTROL OF LIFE AGAIN BY END OF YEAR. Goal Provider Goal - A PLAN OF CARE WILL BE ESTABLISHED THAT MEETS THE PATIENT S NEEDS. PATIENT WILL DEMONSTRATE OXYGEN SATURATION WITHIN NORMAL LIMITS OR PATIENT S OPTIMAL LEVEL ESTABLISHED BY THE PHYSICIAN THROUGHOUT CARE. CHANGES TO CO-MORBID CONDITIONS AND ANY NEW CONDITIONS WILL BE IDENTIFIED AND REPORTED TO THE PHYSICIAN. Goal Provider Goal - PATIENT/CAREGIVER WILL VERBALIZE UNDERSTANDING OF SIGNS AND SYMPTOMS THAT PUT THE PATIENT AT RISK FOR HOSPITALIZATION /EMERGENCY ROOM VISITS, WHEN TO NOTIFY NURSE/PHYSICIAN OF COMPLICATIONS/DECLINE AND WHEN TO CALL 911. Goal Provider Goal - PATIENT/CAREGIVER TO VERBALIZE, AND CONSISTENTLY DEMONSTRATE EFFECTIVE, SAFE MANAGEMENT OF MEDICATION INCLUDING KNOWLEDGE OF EFFECTIVENESS, POTENTIAL SIDE EFFECTS AND DRUG REACTIONS AND WHEN TO CONTACT THE APPROPRIATE CARE PROVIDER. PATIENT/CAREGIVER WILL BE ABLE TO VERBALIZE UNDERSTANDING OF MEDICATION REGIMEN AND ACCURATELY TAKE MEDICATIONS PRESCRIBED WITHOUT ADVERSE EFFECTS BY EOE Goal Provider Goal - PATIENT / CAREGIVER WILL PROMPTLY REPORT SIGNS AND SYMPTOMS OF BLEEDING OR ADVERSE REACTIONS TO THE PHYSICIAN. PATIENT/CAREGIVER WILL VERBALIZE UNDERSTANDING OF ANTITHROMBOTIC THERAPY MANAGEMENT BY END OF EPISODE. Goal Provider Goal [...] DEMONSTRATE UNDERSTANDING OF PAIN CONTROL MEASURES BY E9E Goal Provider Goal - PATIENT/CAREGIVER WILL VERBALIZE UNDERSTANDING OF CARE AND MANAGEMENT OF ANEMIA BY END OF EPISODE. Goal Provider Goal - PATIENT/CAREGIVER WILL VERBALIZE/DEMONSTRATE UNDERSTANDING OF FALL RISK FACTORS AND IMPLEMENT STRATEGIES TO MINIMIZE FALL RISK. PATIENT/CAREGIVER WILL VERBALIZE/DEMONSTRATE AN ABILITY TO ADHERE TO FALL REDUCTION SELF-MANAGEMENT AND LIFE-STYLE CHANGES BY EOE Goal Provider Goal - Goal Provider Goal - Goal Provider Goal - Goal Provider Goal - PATIENT / CAREGIVER WILL VERBALIZE / DEMONSTRATE AN ABILITY TO ADHERE TO SELF-MANAGEMENT OF DIABETES MANAGEMENT BY EOE Goal Provider Goal - PATIENT / CAREGIVER WILL VERBALIZE/DEMONSTRATE UNDERSTANDING OF MEASURES TO MANAGE ALTERED RESPIRATORY STATUS BY END OF EPISODE. Goal Provider Goal - PATIENT / CAREGIVER WILL VERBALIZE/DEMONSTRATE UNDERSTANDING OF MEASURES TO MANAGE ALTERED NEUROLOGICAL STATUS BY EOE Goal Provider Goal - PATIENT / CAREGIVER WILL VERBALIZE/DEMONSTRATE CARE AND SELF-MANAGEMENT OF CVA TO MINIMIZE COMPLICATIONS AND AVOID HOSPITALIZATION BY END OF EPISODE. Encounters Start Date/Time End Date/Time Encounter Type Admission Type Attending [facility] Care Department Encounter ID Discharge Date Discharge Status Discharge Condition Discharge Reason Percent Goals Met 2025-02-16 00:00:00 2025-04-16 00:00:00 Outpatient KAYLA COPPOLA [facility] [id number]
== END 2025-03-06 10:00 | disposition home or self-care (01) ==
PROVIDERS: Nurse Practitioner Family; PCP Internal Medicine; Visit Provider Internal Medicine
DX: E87.6 Hypokalemia (principal); E11.22 Type 2 diabetes mellitus with diabetic chronic kidney disease; I12.9 Hypertensive chronic kidney disease with stage 1 through stage 4 chronic kidney disease, or unspecified chronic kidney disease; N18.31 Chronic kidney disease, stage 3a; Z79.4 Long term (current) use of insulin; E11.42 Type 2 diabetes mellitus with diabetic polyneuropathy; E78.2 Mixed hyperlipidemia; E11.29 Type 2 diabetes mellitus with other diabetic kidney complication; R80.9 Proteinuria, unspecified
CPT/HCPCS: 36415; 80048; 80053; 80061; 82043; 82306; 82607; 83735; 84439; 84443

== ENCOUNTER 2025-03-06 14:44 | Outpatient (CLI) | payer MEDICARE, SELFPAY ==
--- NOTE | ~2025-03-06 | US_ITS ---
EXAMINATION: US thyroid DATE: 03/06/2025 15:00 INDICATION: Thyroid nodule. TECHNIQUE: Multiple ultrasound images of the thyroid were obtained. COMPARISON: None. FINDINGS: The right thyroid lobe measures 4.9 x 1.8 x 1.3 cm. The left thyroid lobe measures 5.6 x 3.4 x 3.2 cm. In the left thyroid lobe, there is a 3.9 cm almost entirely solid, hypoechoic, wider than tall nodule with smooth margin without echogenic foci (TI-RADS TR4). IMPRESSION: 1. Left thyroid nodule. Ultrasound-guided fine-needle aspiration is recommended. Reviewed, dictated and finalized at location E. IMPRESSION: 1. Left thyroid nodule. Ultrasound-guided fine-needle aspiration is recommended .
== END 2025-03-06 14:45 | disposition home or self-care (01) ==
LOC: GOSHIMG 14:44
PROVIDERS: PCP Internal Medicine; Visit Provider Nurse Practitioner Family
DX: E04.1 Nontoxic single thyroid nodule (principal)
CPT/HCPCS: 76536

== ENCOUNTER 2025-03-13 10:50 | Outpatient (CLI) | payer MEDICARE, SELFPAY ==
[2025-03-13 13:06] LABS: Hematocrit 38.0 % (42.0-52.0); Hemoglobin 11.6 g/dL (14.0-18.0); Immature Granulocyte Percent A 0.4 % (0-0.5); Lymphocytes Absolute Auto 1.47 K/mm3 (0.9-3.2); Mean Corpuscular HGB Conc 30.5 g/dl (32-36); Mean Corpuscular Hemoglobin 28.9 pg (26-34); Mean Corpuscular Volume 94.5 fl (80-100); Nucleated Red Blood Cells Absolute Auto 0.000 K/mm3 (0.0-0.012); Nucleated Red Blood Cells Perc 0.0 % (0.0-0.2); Platelet Count Result 296 k/mm3 (150-375); Red Blood Count 4.02 M/mm3 (4.6-6.20); White Blood Count 4.6 K/mm3 (4.5-10.0)
[2025-03-13 13:40] LABS: Ferritin 37.50 ng/mL (11.1-264)
[2025-03-13 14:41] LABS: Vitamin B12 837.0 pg/mL (239-931)
== END 2025-03-13 10:51 | disposition home or self-care (01) ==
LOC: ANHGOSHLAB 10:51
PROVIDERS: PCP Internal Medicine; Visit Provider Internal Medicine
DX: D64.9 Anemia, unspecified (principal); E11.29 Type 2 diabetes mellitus with other diabetic kidney complication; G47.33 Obstructive sleep apnea (adult) (pediatric); R80.9 Proteinuria, unspecified
CPT/HCPCS: 36415; 82607; 82728; 82746; 85025

== ENCOUNTER 2025-04-13 12:46 | Outpatient (CLI) | payer MEDICARE, SELFPAY ==
--- NOTE | ~2025-04-13 | US_ITS ---
EXAMINATION: US FNA w image guidance DATE: 04/13/2025 13:55 INDICATION: Nontoxic single thyroid nodule TECHNIQUE: A time-out was performed to verify the patient's name, date of , and procedure to be performed. The procedure and its benefits and risks were discussed with the patient. Risks specifically discussed included bleeding and infection. The patient understood the risks and agreed to proceed. The neck was prepped and draped in the usual sterile manner. 3 mL 1% lidocaine was used for local anesthesia. 4 passes were made with a 25G needle into the lesion. Appropriate needle location was documented with continuous sonographic guidance. A sterile bandage was applied. There were no immediate complications. FINDINGS: Grayscale ultrasound images demonstrate biopsy needles advanced into the 3.9 cm TI RADS 4 left thyroid nodule of concern. IMPRESSION: 1. Successful ultrasound-guided fine needle aspiration of the 3.9 cm TI RADS 4 left thyroid nodule of concern. Reviewed, dictated and finalized at location A. [employer]
--- NOTE | 2025-04-13 13:51 | CY_PTH ---
PATIENT: James Meier LOC: [facility] U#:[id number] AGE/SX: 79/M ROOM: RE04/13/[address]: Lauren Coronado APRN : 1945 BED: DIS: 04/13/2025 SPEC #: [id number] RECD: 04/13/25 14:01 STATUS: AMBER REQ #: [id number] BENJY: 04/13/25 13:[address]: Lauren Coronado DEPT: [facility] Cytology RECD BY: Celina Mott ENTERED: 04/13/25 14:02 SP TYPE: Cytology OTHR DR: MD Anthony Dietz, Tissues: A - FNA Thyroid Procedures: Hematoxylin and Eosin Stain Cell Block Fine Needle Aspiration Evaluation Fine Needle Aspiration Pathologist
== END 2025-04-13 12:47 | disposition home or self-care (01) ==
PROVIDERS: PCP Internal Medicine; Visit Provider Nurse Practitioner Family
DX: E04.1 Nontoxic single thyroid nodule (principal)
CPT/HCPCS: 10005; 88172; 88173; 88305

== ENCOUNTER 2025-05-24 10:00 | Outpatient (RCR) | payer MEDICARE, BC, SELFPAY | END 2025-05-24 15:24 | disposition home or self-care (01) | LOC: ANHCPREHAB 10:00 | PROVIDERS: PCP Internal Medicine; Visit Provider Internal Medicine Cardiovascular Disease | DX: Z95.1 Presence of aortocoronary bypass graft (principal); Z95.2 Presence of prosthetic heart valve | CPT/HCPCS: 93798 ==